=== PATIENT | female | born 1960 | race Caucasian/White ===

== ENCOUNTER 2021-03-17 10:04 | Outpatient (REF) | payer OTHER, MEDICAID, SELFPAY ==
[2021-03-21 04:21] LABS: HPV 16 RNA NOT DETECTED (NOT DETECTED); HPV mRNA E6/E7 rflx Detected (Not Detected)
== END 2021-03-17 10:05 | disposition home or self-care (01) ==
LOC: HO.LAB 10:04
PROVIDERS: PCP Hospitalist; Visit Provider Advanced Practice Midwife
DX: Z01.419 Encounter for gynecological examination (general) (routine) without abnormal findings (principal); Z11.51 Encounter for screening for human papillomavirus (HPV)
CPT/HCPCS: 87624; 87625; 88142

== ENCOUNTER 2021-03-25 12:52 | Outpatient (REF) | payer OTHER, MEDICAID, SELFPAY ==
--- NOTE | ~2021-03-25 | MM_ITS ---
EXAMINATION: MM SCREENING DIGITAL BREAST TOMOSYNTHESIS, BILATERAL CLINICAL INFORMATION: Screening. Asymptomatic. Age 61. Prior outside mammography unknown. Tyrer-Cuzick score not calculated (incomplete historical information). COMPARISON: None. TECHNIQUE: Digital breast tomosynthesis is performed in both the craniocaudal and mediolateral oblique views along with computer-aided detection (CAD). Synthesized 2D images are generated from the tomosynthesis. Additional exaggerated left CC view is provided. FINDINGS: The breasts are heterogeneously dense, which may obscure small masses (ACR BI-RADS breast composition Category c). There is inhomogeneous fibronodular parenchymal pattern without significant mass or architectural abnormality or abnormal calcifications. Axilla and skin contours are unremarkable. MM/MM tomosynthesis screening BI IMPRESSION: No mammographic evidence of malignancy. ASSESSMENT: BI-RADS 2: Benign RECOMMENDATION: Routine annual mammography screening. This patient's information was entered into a reminder system with a target due date for their next mammogram.
== END 2021-03-25 12:53 | disposition home or self-care (01) ==
LOC: HO.MAMMO 12:52
PROVIDERS: PCP Hospitalist; Visit Provider Hospitalist
DX: Z12.31 Encounter for screening mammogram for malignant neoplasm of breast (principal)
CPT/HCPCS: 77063; 77067

== ENCOUNTER → 2021-06-18 13:54 | Outpatient (BNVA) | payer MEDICARE, MEDICAID, SELFPAY | PROVIDERS: PCP Hospitalist; Visit Provider Surgery ==

== ENCOUNTER → 2021-07-01 15:02 | Outpatient (BNVA) | payer MEDICARE, MEDICAID, SELFPAY | PROVIDERS: PCP Hospitalist; Referring Provider Hospitalist; Visit Provider Surgery | DX: K80.20 Calculus of gallbladder without cholecystitis without obstruction (principal) | CPT/HCPCS: 99202 ==

== ENCOUNTER 2021-08-06 12:43 | Outpatient (REF) | payer MEDICARE, MEDICAID, SELFPAY ==
--- NOTE | 2021-08-06 12:56 | EEG_ITS ---
Waking background activity consists of a moderate voltage 9 to 10 hertz posterior alpha frequency, intermixed with low voltage fast frequencies anteriorly. Occasional sharp contoured waves are seen from the central regions, particularly on the right. Drowsiness is characterized by diffuse theta slowing. During sleep, central vertex waves and K complexes and sleep spindles are noted. Deeper stages of sleep are not identified. Arousals are unremarkable. No focal, lateralizing, or paroxysmal discharges are seen. The patient remains asymptomatic except for some episodes of shortness of breath. IMPRESSION: This 24-hour ambulatory EEG is considered within normal limits. MD SALVADOR Rosenbaum/MIGUEL ÁNGEL / [phone]
== END 2021-08-06 12:44 | disposition home or self-care (01) ==
LOC: HO.NEURO 12:43
PROVIDERS: PCP Hospitalist; Visit Provider Hospitalist
DX: Z13.89 Encounter for screening for other disorder (principal)
CPT/HCPCS: 95708

== ENCOUNTER 2021-12-02 16:55 | Emergency (ER) | payer MEDICARE, MEDICAID, SELFPAY ==
--- NOTE | ~2021-12-02 | XR_ITS ---
EXAMINATION: CHEST AND RIGHT KNEE CLINICAL INFORMATION: Mental status changes with fall COMPARISON: None TECHNIQUE: Single view chest, 2 views right knee FINDINGS: There is mild elevation of the right hemidiaphragm. Heart size normal. No infiltrates, effusions or lung masses seen. No acute osseous injury involving the bony thorax. The knee is unremarkable aside from the presence of a probable healed fracture involving the proximal fibular diaphysis XR/XR chest 1V IMPRESSION: No acute intrathoracic disease. No acute osseous injury involving the right knee.
--- NOTE | ~2021-12-02 | XR_ITS ---
EXAMINATION: CHEST AND RIGHT KNEE CLINICAL INFORMATION: Mental status changes with fall COMPARISON: None TECHNIQUE: Single view chest, 2 views right knee FINDINGS: There is mild elevation of the right hemidiaphragm. Heart size normal. No infiltrates, effusions or lung masses seen. No acute osseous injury involving the bony thorax. The knee is unremarkable aside from the presence of a probable healed fracture involving the proximal fibular diaphysis XR/XR knee RT 2V IMPRESSION: No acute intrathoracic disease. No acute osseous injury involving the right knee.
--- NOTE | ~2021-12-02 | CT_ITS ---
EXAMINATION: CT BRAIN AND CT CERVICAL SPINE WITHOUT CONTRAST. CLINICAL INFORMATION: Multiple falls and mental status change. COMPARISON: None TECHNIQUE: 5 mm thin axial and reformatted 2 mm thin sagittal and coronal images of brain were obtained. Subsequently axial 3 mm thin and reformatted 2 mm thin sagittal and coronal images of cervical spine were obtained. DLP 1049. FINDINGS: Brain: There is no acute intra-axial, extra-axial bleed, masses or midline shift. There is a left posterior temporal lobe encephalomalacia from old insult or intervention. There is no acute intracranial infarct, edema or midline shift. The lateral ventricles are somewhat symmetrical and mildly enlarged. Mild periventricular hypodensity seen in both cerebral hemispheres. Bone windows reveals a metallic plate along the left temporal lobe likely from previous intervention. Otherwise no calvarial abnormality seen. There is no scalp soft tissue lesion seen. There is diffuse mucoperiosteal thickening bilateral maxillary and ethmoid sinuses. There is air-fluid level in the spine maxillary sinuses. CT/CT head/brain wo con IMPRESSION: No acute intracranial process seen. There is a left parietal-temporal lobe encephalomalacia likely from previous insult or intervention. There is a left parietal-temporal calvarial metallic plate from previous intervention. Age-related cerebral volume loss with chronic small vessel ischemic changes. Bilateral acute maxillary and bilateral chronic ethmoid sinusitis.
--- NOTE | ~2021-12-02 | CT_ITS ---
EXAMINATION: CT BRAIN AND CT CERVICAL SPINE WITHOUT CONTRAST. CLINICAL INFORMATION: Multiple falls and mental status change. COMPARISON: None TECHNIQUE: 5 mm thin axial and reformatted 2 mm thin sagittal and coronal images of brain were obtained. Subsequently axial 3 mm thin and reformatted 2 mm thin sagittal and coronal images of cervical spine were obtained. DLP 1049. FINDINGS: Brain: There is no acute intra-axial, extra-axial bleed, masses or midline shift. There is a left posterior temporal lobe encephalomalacia from old insult or intervention. There is no acute intracranial infarct, edema or midline shift. The lateral ventricles are somewhat symmetrical and mildly enlarged. Mild periventricular hypodensity seen in both cerebral hemispheres. Bone windows reveals a metallic plate along the left temporal lobe likely from previous intervention. Otherwise no calvarial abnormality seen. There is no scalp soft tissue lesion seen. There is diffuse mucoperiosteal thickening bilateral maxillary and ethmoid sinuses. There is air-fluid level in the spine maxillary sinuses. CT/CT cervical spine wo con IMPRESSION: No acute intracranial process seen. There is a left parietal-temporal lobe encephalomalacia likely from previous insult or intervention. There is a left parietal-temporal calvarial metallic plate from previous intervention. Age-related cerebral volume loss with chronic small vessel ischemic changes. Bilateral acute maxillary and bilateral chronic ethmoid sinusitis.
[2021-12-02 17:04] VITALS: BP 112/49; BP 142/90; PULSE 72; PULSE 73; RESP 16; TEMP 36.6; O2SAT 96; BMI 28.7
--- NOTE | 2021-12-02 17:31 | ECG_ITS ---
Test Reason : FALL Blood Pressure : / mmHG Vent. Rate : 070 BPM Atrial Rate : 070 BPM P-R Int : 174 ms QRS Dur : 078 ms QT Int : 406 ms P-R-T Axes : 055 006 024 degrees QTc Int : 438 ms Normal sinus rhythm Normal ECG No previous ECGs available Referred By: Asha Matamoros Electronically Signed By:Camron Lowry
--- NOTE | 2021-12-02 17:32 | ED_ITS ---
HPI - General Adult General Chief complaint: General Medical Stated complaint: MECH FALL W/HEAD STRIKE,BRUISE,-LOC PER EMS Time Seen by Provider: 12/02/21 17:20 Source: patient, EMS, RN notes reviewed and old records reviewed Mode of arrival: EMS Limitations: no limitations History of Present Illness HPI narrative: 61 years old female [facility] after falling down of the bed, with closed head injury to the forehead, patient is complaining of headache, patient with history of TBI. Patient is only complaining of headache and neck pain, right knee pain. Related Data Home Medications Medication Instructions Recorded Confirmed acetaminophen 325 mg tablet 650 mg PO Q6H PRN 03/17/21 07/01/21 aripiprazole 20 mg tablet 20 mg PO DAILY 03/17/21 07/01/21 bisacodyl 10 mg rectal suppository 10 mg TX DAILY PRN 03/17/21 07/01/21 calcium carbonate 200 mg calcium 200 mg PO BID 03/17/21 07/01/21 (500 mg) chewable tablet (Tums) cetirizine 1 mg/mL oral solution 10 mg PO DAILY PRN 03/17/21 07/01/21 (All Day Allergy (cetirizine)) citalopram 10 mg tablet 10 mg PO DAILY 03/17/21 07/01/21 famotidine 40 mg tablet 40 mg PO DAILY 03/17/21 07/01/21 gemfibrozil 600 mg tablet 600 mg PO DAILY 03/17/21 07/01/21 ibuprofen 600 mg tablet 600 mg PO Q8H PRN 03/17/21 07/01/21 lamotrigine 100 mg tablet 100 mg PO BID 03/17/21 07/01/21 loperamide 2 mg capsule 2 mg PO Q6H PRN 03/17/21 07/01/21 mineral oil (Fleet Mineral Oil) 118 ml TX DAILY PRN 03/17/21 07/01/21 omeprazole 20 mg capsule,delayed 20 mg PO DAILY 03/17/21 07/01/21 release sennosides 8.6 mg tablet (Natural 8.6 mg PO BEDTIME 03/17/21 07/01/21 Senna Laxative) sodium chloride 0.65 % nasal spray 1 spray INTRANASAL BID PRN 03/17/21 07/01/21 aerosol (Searcy Nasal) Allergies Allergy/AdvReac Type Severity Reaction Status Date / Time No Known Allergies Allergy Verified 07/01/21 15:13 Review of Systems Review of Systems: All other systems are reviewed and are negative Constitutional: Reports as per HPI and Reports no additional constitutional complaints Eyes: Reports as per HPI and Reports no additional eye complaints Reports system reviewed and no additional complaints, except as documented Cardiovascular: Reports as per HPI and Reports no additional cardiovascular complaints Respiratory: Reports as per HPI and Reports no additional respiratory complaints Gastrointestinal: Reports as per HPI and Reports no additional gastrointestinal complaints Genitourinary: Reports no additional female genitourinary complaints Musculoskeletal: Reports no additional musculoskeletal complaints Skin/Breast: Reports system reviewed and no additional complaints, except as docu Psychiatric: Reports no additional psychiatric complaints Endocrine: Reports no additional endocrine complaints Hematologic/Lymphatic: Reports no additional hematologic/lymphatic complaints Allergic/Immunologic: Reports no additional allergic/immunologic complaints Reports system reviewed and no additional complaints, except as documented and Reports Abnormal speech present [facility] Past Medical History Medical History Aphasia Chondrocostal junction syndrome Delusional disorder Dementia Disruptive mood dysregulation disorder Gallstones GERD (gastroesophageal reflux disease) Hx of migraine headaches Hyperlipidemia Myopia Obsessive compulsive disorder Raynauds syndrome Traumatic brain injury Family History Family History Maternal Grandmother Breast cancer Social History Social History Advance Directives: No Advance Directives Information Provided: No Physical Exam ED Vital Signs: Vital Signs - 24 hr 12/02/21 17:04 12/02/21 19:06 Temperature 97.8 F 97.9 F Pulse Rate 73 79 Respiratory Rate 16 16 Blood Pressure 112/49 L 122/58 L Pulse Oximetry 96 97 BMI result Body Mass Index 28.7 Vital signs have been reviewed as appeared to be correct. Blood pressure normal. Heart rate normal. Respiration rate normal. Temperature normal. Oxygen saturation normal. Appearance: Alert. Oriented X3. No acute distress. Head: Normal external exam. Normocephalic. Atraumatic. No Fontenot signs noted. No raccoon eyes noted Eyes: PERRLA. EOMI. Conjunctiva and sclera normal. Eyelids normal. ENT: TM's Normal. Pharynx normal. Uvula midline. Moist mucous membranes. No trismus noted. No drooling noted. No muffled voice noted. Neck: Normal inspection. Neck supple. FROM. No adenopathy. Thyroid Normal. No meningeal signs. No neck mass noted. CVS: Normal heart rate and rhythm. Heart sound normal. No murmurs noted. Pulses normal throughout. Respiratory: No respiratory distress. Painless inspiration. Breath sounds normal. No wheezes/rales/rhonchi noted. Chest nontender. No accessory muscle usage noted or decreased air movement noted. Abdomen: Soft and nontender. Bowel sounds normal in all 4 quadrants. No distention noted. No organomegaly noted. No visible injury noted. Back: No CVA tenderness. Full range of motion noted. Skin: Skin warm and dry. Normal skin color. Normal skin turgor. No rashes/lesions/lacerations noted. Extremities: Right knee ecchymosis, with mild tenderness, no deformity. Neuro: Oriented X 3. Cranial nerve exam: II-XII are grossly intact No motor deficit. No sensory deficit. Reflexes normal. Course Course Course Narrative: Assessment and plan. A 61-year-old female with history of TBI live in a penitentiary was sent for evaluation of mechanical fall and change mental status, patient had a negative workup in the emergency department, patient has been reacting appropriately in the emergency department. The workup is not revealing any acute traumatic changes or abnormalities. Mild lipase elevation patient has no nausea or vomiting or abdominal pain. Medical Decision Making Medical Records Medical records reviewed: Yes I reviewed the patient's medical records. Lab Data Lab results reviewed: Yes I reviewed the patient's lab results. Result diagrams: 12/02/21 17:54 12/02/21 17:54 Labs: Lab Results 12/02/21 12/02/21 12/02/21 Range/Units 17:54 17:54 17:54 WBC 6.2 (4.8-10.8) X10*3/uL RBC 4.12 L (4.20-5.50) X10*6/uL Hgb 12.1 (12.0-16.0) g/dl Hct 36.8 L (37.0-47.0) % MCV 89.3 (80.0-98.0) fL MCH 29.4 (27.0-33.0) pg MCHC 32.9 (31.0-35.0) g/dl RDW 13.2 (11.0-16.0) % Plt Count 340 (160-400) X10*3/uL MPV 9.3 L (9.4-12.3) fL Immature Gran % (Auto) 0.5 H (0.0-0.4) % Neut % (Auto) 69.6 (45-73) % Lymph % (Auto) 17.7 L (20-40) % [place] % (Auto) 6.1 (2-11) % Eos % (Auto) 5.9 H (0-4) % Baso % (Auto) 0.2 (0-2) % Lymph # (Auto) 1.1 L (1.2-4.9) X10*3/uL [place] # (Auto) 0.4 (0.1-1.2) X10*3/uL Eos # (Auto) 0.4 (0.0-0.4) X10*3/uL Baso # (Auto) 0.0 (0.0-0.2) X10*3/uL Abs Immat Gran (auto) 0.03 (0.00-0.03) X10*3/uL Absolute Neuts (auto) 4.3 (2.0-8.3) x10*3/uL Absolute Nucleated RBC 0.000 (0.0-0.012) X10*3/uL Nucleated RBC % (auto) 0.0 (0.0-0.2) /100WBC Sodium 144 (135-145) mmol/L Potassium 3.7 (3.3-5.1) mmol/L Chloride 108 (96-108) mmol/L Carbon Dioxide 29 (22-29) mmol/L Anion Gap 11 L (12-20) BUN 14 (9-16) mg/dL Creatinine 0.90 (0.5-1.4) mg/dL Estim Creat Clear Calc 66.3 Estimated GFR > 60 Random Glucose 119 H (60-115) mg/dL Calcium 9.3 (8.4-10.2) mg/dL Total Bilirubin 0.6 (0.0-1.0) mg/dL Direct Bilirubin 0.3 (0.0-0.5) mg/dL AST 24 (5-31) U/L ALT 22 (0-31) U/L Alkaline Phosphatase 113 (39-117) U/L Troponin I High Sens 4.0 (<3.5-17.0) ng/L Total Protein 6.6 (6.5-8.0) g/dL Albumin 4.1 (3.5-5.0) g/dL Lipase 264 H (8-78) U/L Urine Color Urine Appearance Urine pH (5.0-8.0) Ur Specific [place] (1.005-1.025) Urine Protein (NEG-TRACE) MG/DL Urine Glucose (UA) (NEG) MG/DL Urine Ketones (NEG) MG/DL Urine Blood (NEG) Urine Nitrite (NEG) Ur Leukocyte Esterase (NEG) Urine RBC (0) /HPF Urine WBC (0-4) /HPF Ur Squamous Epith Cells /LPF Urine Bacteria /LPF 12/02/21 Range/Units 20:06 WBC (4.8-10.8) X10*3/uL RBC (4.20-5.50) X10*6/uL Hgb (12.0-16.0) g/dl Hct (37.0-47.0) % MCV (80.0-98.0) fL MCH (27.0-33.0) pg MCHC (31.0-35.0) g/dl RDW (11.0-16.0) % Plt Count (160-400) X10*3/uL MPV (9.4-12.3) fL Immature Gran % (Auto) (0.0-0.4) % Neut % (Auto) (45-73) % Lymph % (Auto) (20-40) % [place] % (Auto) (2-11) % Eos % (Auto) (0-4) % Baso % (Auto) (0-2) % Lymph # (Auto) (1.2-4.9) X10*3/uL [place] # (Auto) (0.1-1.2) X10*3/uL Eos # (Auto) (0.0-0.4) X10*3/uL Baso # (Auto) (0.0-0.2) X10*3/uL Abs Immat Gran (auto) (0.00-0.03) X10*3/uL Absolute Neuts (auto) (2.0-8.3) x10*3/uL Absolute Nucleated RBC (0.0-0.012) X10*3/uL Nucleated RBC % (auto) (0.0-0.2) /100WBC Sodium (135-145) mmol/L Potassium (3.3-5.1) mmol/L Chloride (96-108) mmol/L Carbon Dioxide (22-29) mmol/L Anion Gap (12-20) BUN (9-16) mg/dL Creatinine (0.5-1.4) mg/dL Estim Creat Clear Calc Estimated GFR Random Glucose (60-115) mg/dL Calcium (8.4-10.2) mg/dL Total Bilirubin (0.0-1.0) mg/dL Direct Bilirubin (0.0-0.5) mg/dL AST (5-31) U/L ALT (0-31) U/L Alkaline Phosphatase (39-117) U/L Troponin I High Sens (<3.5-17.0) ng/L Total Protein (6.5-8.0) g/dL Albumin (3.5-5.0) g/dL Lipase (8-78) U/L Urine Color YELLOW Urine Appearance CLEAR Urine pH 6.0 (5.0-8.0) Ur Specific [place] 1.020 (1.005-1.025) Urine Protein NEG (NEG-TRACE) MG/DL Urine Glucose (UA) NEG (NEG) MG/DL Urine Ketones NEG (NEG) MG/DL Urine Blood NEG (NEG) Urine Nitrite NEG (NEG) Ur Leukocyte Esterase TRACE H (NEG) Urine RBC 0-2 (0) /HPF Urine WBC 0-2 (0-4) /HPF Ur Squamous Epith Cells TRACE /LPF Urine Bacteria NONE /LPF Imaging Data CT scan - head: Attestation: I personally reviewed and interpreted this imaging study as follows: Radiologist's impression: No acute intracranial pathology. Cervical spine CT: Attestation: I personally reviewed and interpreted this imaging study as follows: Radiologist's impression: No acute fracture, dislocation or subluxation seen in cervical spine. Right knee x-ray: Attestation: I personally reviewed and interpreted this imaging study as follows: Radiologist's impression: No acute intrathoracic disease. No acute osseous injury involving the right knee.? Chest x-ray: Attestation: I personally reviewed and interpreted this imaging study as follows: Radiologist's impression: No acute intrathoracic disease. No acute osseous injury involving the right knee.? ECG Data Attestation: I personally reviewed and interpreted this ECG as follows: Interpretation: Normal sinus rhythm at 70 beats per minutes, normal intervals, normal axis deviation. Discharge Plan Discharge Clinical Impression: Traumatic brain injury, Closed head injury, Pancreatitis Patient Disposition: Home, Self-Care Instructions: Head Injury (ED), Pancreatitis (ED) Prescriptions: No Action acetaminophen 325 mg tablet 650 mg PO Q6H PRN0RF aripiprazole 20 mg tablet 20 mg PO DAILY 0RF bisacodyl 10 mg suppository 10 mg TX DAILY PRN0RF cetirizine [All Day Allergy (cetirizine)] 1 mg/mL solution 10 mg PO DAILY PRN0RF citalopram 10 mg tablet 10 mg PO DAILY 0RF famotidine 40 mg tablet 40 mg PO DAILY 0RF mineral oil [Fleet Mineral Oil] Enema 118 ml TX DAILY PRN0RF Rx Instructions: discard any unused portion gemfibrozil 600 mg tablet 600 mg PO DAILY 0RF ibuprofen 600 mg tablet 600 mg PO Q8H PRN0RF lamotrigine 100 mg tablet 100 mg PO BID 0RF loperamide 2 mg capsule 2 mg PO Q6H PRN0RF sodium chloride [Searcy Nasal] 0.65 % aerosol,spray 1 spray intranasal BID PRN0RF omeprazole 20 mg capsule,delayed release(DR/EC) 20 mg PO DAILY 0RF sennosides [Natural Senna Laxative] 8.6 mg tablet 8.6 mg PO BEDTIME 0RF calcium carbonate [Tums] 200 mg calcium (500 mg) tablet,chewable 200 mg PO BID 0RF Referrals: Physician,Unknown J [Primary Care Provider] - 2 days
[2021-12-02 18:00] LABS: MANUAL DIFF FLAG NO
[2021-12-02 18:07] LABS: Basophils Percent Auto 0.2 % (0-2); Eosinophils Absolute Auto 0.4 X10*3/uL (0.0-0.4); Eosinophils Percent Auto 5.9 % (0-4); Hematocrit 36.8 % (37.0-47.0); Hemoglobin 12.1 g/dl (12.0-16.0); Imm Gran Abs Auto 0.03 X10*3/uL (0.00-0.03); Imm Gran Pct Auto 0.5 % (0.0-0.4); Lymphocytes Absolute Auto 1.1 X10*3/uL (1.2-4.9); Lymphocytes Percent Auto 17.7 % (20-40); Mean Corpuscular HGB Conc 32.9 g/dl (31.0-35.0); Mean Corpuscular Hemoglobin 29.4 pg (27.0-33.0); Mean Corpuscular Volume 89.3 fL (80.0-98.0); Mean Platelet Volume 9.3 fL (9.4-12.3); Monocytes Absolute Auto 0.4 X10*3/uL (0.1-1.2); Monocytes Percent Auto 6.1 % (2-11); Neutrophils Absolute Auto 4.3 x10*3/uL (2.0-8.3); Neutrophils Percent Auto 69.6 % (45-73); Platelet Count 340 X10*3/uL (160-400); Red Blood Count 4.12 X10*6/uL (4.20-5.50); Red Cell Distribution Width 13.2 % (11.0-16.0); White Blood Count 6.2 X10*3/uL (4.8-10.8)
[2021-12-02 18:17] LABS: Alanine Aminotransferase 22 U/L (0-31); Albumin Level 4.1 g/dL (3.5-5.0); Alkaline Phosphatase 113 U/L (39-117); Anion Gap 11 (12-20); Aspartate Amino Transferase 24 U/L (5-31); Bilirubin Direct 0.3 mg/dL (0.0-0.5); Bilirubin Total 0.6 mg/dL (0.0-1.0); Blood Urea Nitrogen 14 mg/dL (9-16); Calcium 9.3 mg/dL (8.4-10.2); Carbon Dioxide 29 mmol/L (22-29); Chloride 108 mmol/L (96-108); Creatinine Clr Calc Pharmacy 66.3; Estimated Glomerular Filt Rate > 60; Glucose Random 119 mg/dL (60-115); Lipase 264 U/L (8-78); Potassium 3.7 mmol/L (3.3-5.1); Sodium 144 mmol/L (135-145); Total Protein 6.6 g/dL (6.5-8.0)
[2021-12-02 19:06] VITALS: BP 122/58; PULSE 79; RESP 16; TEMP 36.6; O2SAT 97
[2021-12-02 20:15] LABS: Appearance Urine CLEAR; Color Urine YELLOW; Glucose Urine UA NEG (NEG); Leukocyte Esterase Urine TRACE (NEG); Nitrite Urine NEG (NEG); UACC Culture Trigger YES; Urine Blood NEG (NEG); Urine Ketones NEG (NEG); Urine Protein NEG (NEG-TRACE)
[2021-12-02 20:29] LABS: RBC Urine 0-2 /HPF (0); Squamous Epithelial Cell Urine TRACE /LPF; WBC Urine 0-2 /HPF (0-4)
[2021-12-02 21:40] VITALS: BP 114/61; PULSE 78; RESP 14; TEMP 36.7; O2SAT 99
== END 2021-12-02 22:13 | disposition home or self-care (01) ==
PROVIDERS: Emergency Provider Emergency Medicine
DX: S09.90XA Unspecified injury of head, initial encounter (principal); S80.01XA Contusion of right knee, initial encounter; W06.XXXA Fall from bed, initial encounter; K85.90 Acute pancreatitis without necrosis or infection, unspecified; Z87.820 Personal history of traumatic brain injury; Y93.84 Activity, sleeping; Y92.042 Bedroom in boarding-house as the place of occurrence of the external cause; Y99.9 Unspecified external cause status
CPT/HCPCS: 36415; 70450; 71045; 72125; 73560; 80048; 80076; 81001; 83690; 84484; 85025; 87086; 93005; 99284

== ENCOUNTER 2021-12-22 09:56 | Inpatient (IN) | payer MEDICARE, SELFPAY ==
[2021-12-22] VITALS (8 sets, daily range): BP systolic 96–111; BP diastolic 40–60; PULSE 75–86; RESP 16–22; TEMP 36.4–37.7; O2SAT 93–98; BMI 30.4
--- NOTE | ~2021-12-22 | XR_ITS ---
EXAMINATION: XR CHEST CLINICAL INFORMATION: Weakness. Rule out pneumonia. COMPARISON: Previous chest x-ray most recent 12/02/2021 TECHNIQUE: Frontal view of the chest was obtained. FINDINGS: The cardiac and mediastinal contours are stable. The lung volumes are low. There is elevation of the left hemidiaphragm. There is question of infiltrate at the left lung base new from previous exam. The right lung is clear. There is no pleural effusion. There are degenerative changes of the spine. XR/XR chest 1V IMPRESSION: Question left base infiltrate.
--- NOTE | ~2021-12-22 | CT_ITS ---
EXAMINATION: CT CERVICAL SPINE WITHOUT CONTRAST CLINICAL INFORMATION: Fall. Neck pain. Rule out fracture. COMPARISON: Previous cervical spine CT 12/02/2021 TECHNIQUE: Axial images through the cervical spine without contrast. Sagittal and coronal reconstructions on the technologist workstation were performed. This CT examination was performed using dose optimization techniques as appropriate, variously including the following: *Automated exposure control *Adjustment of mA and/or kV according to patient size (this includes techniques or standardized protocols for targeted exams where dose is matched to indication/reason for exam; i.e. extremities or head) *Use of iterative reconstruction technique DLP: 6 x 5 mGy-cm FINDINGS: There is slight head tilt to the right and curvature of the cervical spine to the left. Bone alignment is otherwise normal. No fracture or dislocation is seen. There is degenerative spondylosis at C5-C6 C6-C7 and C7-T1. There is degenerative disc disease at C6-C7. There are degenerative changes at the C1 dens articulation. There is bilateral multilevel facet arthritis, right greater than left. Prevertebral soft tissues are normal. Visualized lung apices are clear. CT/CT cervical spine wo con IMPRESSION: Degenerative changes. No fracture or dislocation seen. Fleischner guidelines were followed.
--- NOTE | ~2021-12-22 | NM_ITS ---
EXAMINATION: HEPATOBILIARY SCAN. CLINICAL INFORMATION: Abnormal LFTs. COMPARISON: None TECHNIQUE: Following intravenous administration of 5 mCi of 99m Tc Hepatolite, imaging over the right upper quadrant was obtained up to 2 hours. Following oral administration of water, repeat imaging was obtained at 5 hours in multiple projections.. FINDINGS: There is normal hepatic uptake without any focal defect. There is prompt visualization of CBD by 8 minutes. Gallbladder is not visualized up to 2 hours consistent cystic duct obstruction. Gallbladder is not visualized up to 5 hours. NM/NM hepatobiliary wo pharm IMPRESSION: Finding consistent with cystic duct obstruction up to 5 hours. Patent CBD. Normal hepatic uptake.
--- NOTE | ~2021-12-22 | US_ITS ---
EXAMINATION: US ABDOMEN LIMITED CLINICAL INFORMATION: Common bile duct stone. COMPARISON: Previous CT of the abdomen and pelvis from yesterday TECHNIQUE: Real-time imaging of the right upper quadrant abdominal viscera. FINDINGS: PANCREAS: Not well visualized due to bowel gas LIVER: Liver echotexture is increased. No focal liver lesion is appreciated by ultrasound. There is no intrahepatic biliary duct dilatation seen. GALLBLADDER: The gallbladder is slightly enlarged measuring 13 x 4 x 4.5 cm in longitudinal transverse and AP dimension. There are small gallstones in the gallbladder. The gallbladder wall is slightly thickened measuring 0.6 cm. There is trace pericholecystic fluid. The system technologist does not describe the patient is tender over the gallbladder. COMMON BILE DUCT: Normal in caliber measuring 0.5 cm in diameter. No common bile duct stone is appreciated by ultrasound. RIGHT KIDNEY: Normal. No hydronephrosis. No renal calculi or focal parenchymal lesions. The kidney measures 10 cm in maximum dimension. FREE FLUID: There is no ascites. There is a small right pleural effusion. US/US abdomen limited IMPRESSION: Slightly enlarged gallbladder. Small gallstones. Slightly thickened gallbladder wall and trace pericholecystic fluid. Appearance is again concerning for cholecystitis. Normal caliber intra and extrahepatic bile ducts. No common bile duct stone seen by ultrasound. Echogenic liver. No focal liver lesion appreciated by ultrasound. Small right pleural effusion.
--- NOTE | ~2021-12-22 | US_ITS ---
EXAMINATION: US ABDOMEN LIMITED US DUPLEX ARTERIAL VENOUS COMPLETE CLINICAL INFORMATION: ?cholecystitis. Worsening liver function tests. COMPARISON: Previous CT of the abdomen and pelvis 12/22/2021, abdominal ultrasound 12/23/2021, HIDA scan 12/25/2021 and MRCP 12/26/2021. TECHNIQUE: Real-time imaging of the right upper quadrant abdominal viscera. Grayscale color and Doppler imaging of the liver vasculature. FINDINGS: PANCREAS: Not well visualized due to bowel gas. LIVER: Liver echotexture is slightly increased. The liver is normal in size. The liver contour is normal. No focal hepatic lesion. There is no intrahepatic biliary duct dilatation seen. GALLBLADDER: The gallbladder is slightly enlarged measuring 14 x 4 x 6 cm in sagittal, AP and transverse dimensions. There is dependent echogenic material in the gallbladder suggestive of sludge. No acoustic shadowing to confirm a gallstone is appreciated. Suggested gallstones in the neck of the gallbladder on prior exams are not appreciated. The gallbladder wall appears thickened measuring up to 0.8 cm. No gallbladder wall edema or pericholecystic fluid is seen. The cytotechnologist/histotechnologist does not report that the patient was tender over the gallbladder. COMMON BILE DUCT: Normal in caliber measuring 0.4 cm in diameter. RIGHT KIDNEY: Normal. No hydronephrosis. No renal calculi or focal parenchymal lesions. The kidney measures 10 cm in maximum dimension. FREE FLUID: There is a small amount of ascites adjacent to the liver. LIVER DOPPLER: The extrahepatic, main, right and left portal veins are patent with appropriate hepatopetal flow. The right, middle and left hepatic veins are patent with normal waveforms. The IVC is patent with normal waveform. The main hepatic artery is patent with normal peak systolic velocity of 150 cm/s. US/US abdomen limited IMPRESSION: Enlarged gallbladder and thickened gallbladder wall. Dependent echogenic material in the gallbladder suggestive of sludge. This does not demonstrate acoustic shadowing to confirm a stone. Suggested stone in the gallbladder neck is not appreciated. Echogenic liver, probably representing mild fatty infiltration. No biliary duct dilatation. Small amount of ascites adjacent to the liver. Normal liver Doppler exam.
--- NOTE | ~2021-12-22 | MR_ITS ---
EXAMINATION: MR ABDOMEN WITHOUT CONTRAST CLINICAL INFORMATION: Abdominal pain. Abnormal liver function tests. Cystic duct obstruction on nuclear medicine hepatobiliary scan. COMPARISON: CT abdomen and pelvis from 12/22/2021. Abdomen ultrasound from 12/23/2021 and nuclear medicine hepatobiliary study from 12/25/2021. TECHNIQUE: Noncontrast multiplanar multisequence MRI of the abdomen is performed on a high-field 1.5 Luly magnet using the MRCP protocol. FINDINGS: LUNG BASES: No pericardial or pleural effusion. Again noted are findings of an elevated right diaphragm and bibasilar atelectasis. LIVER: Liver has normal size and contour. Mild hepatic steatosis is evident on opposed phase gradient echo imaging. A 1 cm T2 hyperintense focus within hepatic segment 8 is not optimally evaluated on this noncontrast MRI. It corresponds to the contrast enhancing focus observed on 12/22/2021. It likely represents a hemangioma. No intrahepatic bile duct dilatation. GALLBLADDER AND BILIARY TREE: Gallbladder contains a mild amount of sludge. There is a persistently impacted 1 cm stone in the gallbladder neck (image 11, series 4). The gallbladder wall thickening has improved compared to 12/20/2021. There is trace pericholecystic fluid. Common bile duct is normal; it measures 0.4 cm diameter. No choledocholithiasis. PANCREAS: No acute findings within the atrophied pancreas. No pancreatic mass, edema or pancreatic ductal dilatation. SPLEEN: Normal. ADRENAL GLANDS: Normal. KIDNEYS: Kidneys are normal in size and parenchymal signal. No renal mass or hydronephrosis. BOWEL AND PERITONEUM: Again noted is the ventral abdominal wall hernia containing a portion of the distal gastric body. No dilated bowel loops. VASCULATURE: Abdominal aorta is normal in size. Inferior vena cava is unremarkable. LYMPH NODES: No pathologic sized lymph nodes in the abdomen. SKELETAL: No suspicious bone lesions. L4-L5 degenerative disc disease. MR/MR MRCP IMPRESSION: * Mild hepatic steatosis. * There is an impacted stone in the gallbladder neck. The mild gallbladder wall thickening has improved compared to 12/22/2021. Trace pericholecystic fluid is present. If the patient has right upper quadrant pain/Ann's sign, then constellation of findings would suggest acute cholecystitis. Also, the finding of an obstructed cystic duct on hepatobiliary scan from 08/27/2022 favors diagnosis of acute cholecystitis. There is no choledocholithiasis. * A small, 1 cm T2 hyperintense focus in hepatic segment 8 is likely a hemangioma. * A ventral abdominal wall hernia contains a portion of the stomach.
--- NOTE | ~2021-12-22 | CT_ITS ---
EXAMINATION: CT HEAD WITHOUT CONTRAST CLINICAL INFORMATION: Fall. Change in mental status. Rule out fracture. COMPARISON: Previous head CT December 02 2021 TECHNIQUE: Contiguous axial imaging was performed from the skull base to vertex without intravenous administration of contrast. This CT examination was performed using dose optimization techniques as appropriate, variously including the following: *Automated exposure control *Adjustment of mA and/or kV according to patient size (this includes techniques or standardized protocols for targeted exams where dose is matched to indication/reason for exam; i.e. extremities or head) *Use of iterative reconstruction technique DLP: 757 mGy-cm FINDINGS: There is no evidence of an extra-axial collection. There is no evidence of intra-axial or extra-axial hemorrhage. Ventricles and extra-axial CSF spaces are appropriate. There is an area lesion or infarct left temporal and parietal lobes appears unchanged. No mass, mass effect or acute infarct is seen. There is a surgical plate in the left temporal and parietal bone. There are degenerative changes of the temporomandibular joints. Bony structures are otherwise unremarkable. No skull fracture is seen. The visualized paranasal sinuses, mastoid air cells and middle ears are clear. CT/CT head/brain wo con IMPRESSION: No acute findings. 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
--- NOTE | ~2021-12-22 | CT_ITS ---
EXAMINATION: CT ABDOMEN AND PELVIS WITH CONTRAST CLINICAL INFORMATION: Diffuse abdominal pain. Elevated liver function tests. COMPARISON: None TECHNIQUE: Multidetector volumetric images were obtained from the superior aspect of the liver through the pubic symphysis following administration 85 mL of Omnipaque 350 intravenous contrast. Sagittal and coronal reformatted images were obtained on the technologist's workstation. Oral contrast: Yes This CT examination was performed using dose optimization techniques as appropriate, variously including the following: *Automated exposure control *Adjustment of mA and/or kV according to patient size (this includes techniques or standardized protocols for targeted exams where dose is matched to indication/reason for exam; i.e. extremities or head) *Use of iterative reconstruction technique DLP: 677 mGy-cm FINDINGS: LUNG BASES: There is atelectasis or small infiltrates at the lung bases. LIVER, GALLBLADDER, AND BILIARY TREE: The liver is low in attenuation suggestive of fatty infiltration. There is a 1 cm enhancing lesion high in the dome liver axial image 14 series 3. This may represent a hemangioma.. Evaluation of the gallbladder is limited due to motion artifact. The gallbladder appears upper normal in size. There is a gallstone in the neck of the gallbladder. There is question of gallbladder wall thickening and edema. There is also question of a small amount of fluid around the gallbladder. PANCREAS: Unremarkable. SPLEEN: Unremarkable. ADRENAL GLANDS: Unremarkable. KIDNEYS AND URETERS: The kidneys are normal in size, shape, and attenuation. No hydronephrosis, hydroureter, or calculi seen. No perinephric stranding. BLADDER: There is a tiny amount of air in the bladder, question related to recent catheterization. Clinical correlation recommended. Bladder is otherwise normal. GASTROINTESTINAL TRACT: The small and large bowel are unremarkable. The appendix is unremarkable. There is a upper ventral hernia slightly to the left of midline containing the distal stomach. ABDOMINAL WALL: No significant hernia is appreciated. LYMPH NODES: Normal. VASCULAR: Unremarkable. PELVIC VISCERA: Unremarkable. OSSEOUS STRUCTURES: There are degenerative changes of the spine. CT/CT abdomen pelvis w con IMPRESSION: Limited exam due to motion artifact. Gallstone in the neck of the gallbladder. Question gallbladder wall thickening and edema and small amount of pericholecystic fluid. Appearance is concerning for acute cholecystitis. Upper ventral hernia containing distal stomach. No evidence of obstruction. 1 cm enhancing lesion in the liver question representing a benign hemangioma. Fleischner guidelines were followed.
--- NOTE | ~2021-12-22 | US_ITS ---
EXAMINATION: US ABDOMEN LIMITED US DUPLEX ARTERIAL VENOUS COMPLETE CLINICAL INFORMATION: ?cholecystitis. Worsening liver function tests. COMPARISON: Previous CT of the abdomen and pelvis 12/22/2021, abdominal ultrasound 12/23/2021, HIDA scan 12/25/2021 and MRCP 12/26/2021. TECHNIQUE: Real-time imaging of the right upper quadrant abdominal viscera. Grayscale color and Doppler imaging of the liver vasculature. FINDINGS: PANCREAS: Not well visualized due to bowel gas. LIVER: Liver echotexture is slightly increased. The liver is normal in size. The liver contour is normal. No focal hepatic lesion. There is no intrahepatic biliary duct dilatation seen. GALLBLADDER: The gallbladder is slightly enlarged measuring 14 x 4 x 6 cm in sagittal, AP and transverse dimensions. There is dependent echogenic material in the gallbladder suggestive of sludge. No acoustic shadowing to confirm a gallstone is appreciated. Suggested gallstones in the neck of the gallbladder on prior exams are not appreciated. The gallbladder wall appears thickened measuring up to 0.8 cm. No gallbladder wall edema or pericholecystic fluid is seen. The cardiovascular radiologic technologist does not report that the patient was tender over the gallbladder. COMMON BILE DUCT: Normal in caliber measuring 0.4 cm in diameter. RIGHT KIDNEY: Normal. No hydronephrosis. No renal calculi or focal parenchymal lesions. The kidney measures 10 cm in maximum dimension. FREE FLUID: There is a small amount of ascites adjacent to the liver. LIVER DOPPLER: The extrahepatic, main, right and left portal veins are patent with appropriate hepatopetal flow. The right, middle and left hepatic veins are patent with normal waveforms. The IVC is patent with normal waveform. The main hepatic artery is patent with normal peak systolic velocity of 150 cm/s. US/US duplex arterial venous comp IMPRESSION: Enlarged gallbladder and thickened gallbladder wall. Dependent echogenic material in the gallbladder suggestive of sludge. This does not demonstrate acoustic shadowing to confirm a stone. Suggested stone in the gallbladder neck is not appreciated. Echogenic liver, probably representing mild fatty infiltration. No biliary duct dilatation. Small amount of ascites adjacent to the liver. Normal liver Doppler exam.
--- NOTE | 2021-12-22 10:17 | ECG_ITS ---
Test Reason : AMS Blood Pressure : / mmHG Vent. Rate : 082 BPM Atrial Rate : 082 BPM P-R Int : 164 ms QRS Dur : 080 ms QT Int : 400 ms P-R-T Axes : 040 030 027 degrees QTc Int : 467 ms Normal sinus rhythm Normal ECG When compared with ECG of 02-DEC-2021 17:45, No significant change was found Referred By: Durga Lopez Electronically Signed By:Camron Lowry
--- NOTE | 2021-12-22 10:25 | ED.GENADULT ---
HPI - General Adult General Chief complaint: General Medical Stated complaint: FALL X 1 WEEK AGO Time Seen by Provider: 12/22/21 10:06 Source: patient and EMS Mode of arrival: EMS Limitations: no limitations History of Present Illness HPI narrative: 61-year-old female who was sent to the emergency department from her care facility for evaluation of altered mental status. The nursing facility reports that the patient fell approximately 1 week prior with possible head injury. Today, the patient appeared to be unsteady and altered with slurred speech. In reviewing her past medical history and does state that she has aphasia. At the time of evaluation the patient does have dysarthric speech which is minimally comprehensible, she was able to tell me her name but I had difficulty getting other information from her. She did follow all commands. The patient denied being ill in any way. She was oriented to person and knows that she is in a hospital. Related Data Home Medications Medication Instructions Recorded Confirmed acetaminophen 325 mg tablet 650 mg PO Q6H PRN 03/17/21 12/22/21 famotidine 40 mg tablet 40 mg PO DAILY 03/17/21 12/22/21 gemfibrozil 600 mg tablet 600 mg PO BID 03/17/21 12/22/21 ibuprofen 600 mg tablet 600 mg PO Q8H PRN 03/17/21 12/22/21 loperamide 2 mg capsule 2 mg PO Q6H PRN 03/17/21 12/22/21 omeprazole 20 mg capsule,delayed 20 mg PO DAILY 03/17/21 12/22/21 release sennosides 8.6 mg tablet (Natural 8.6 mg PO Q24H PRN 03/17/21 12/22/21 Senna Laxative) sodium chloride 0.65 % nasal spray 1 spray INTRANASAL Q8H PRN 03/17/21 12/22/21 aerosol ([employer] Nasal) aripiprazole 5 mg tablet (Abilify) 2.5 mg PO DAILY 12/22/21 12/22/21 calcium carbonate 500 mg calcium 500 mg PO Q8H PRN 12/22/21 12/22/21 (1,250 mg) chewable tablet cetirizine 10 mg tablet 10 mg PO DAILY 12/22/21 12/22/21 citalopram 20 mg tablet 20 mg PO DAILY 12/22/21 12/22/21 clozapine 100 mg tablet (Clozaril) 100 mg PO BEDTIME 12/22/21 12/22/21 lamotrigine 150 mg tablet 150 mg PO BID 12/22/21 12/22/21 oxycodone-acetaminophen 5 mg-325 1 tab PO Q4H PRN 12/22/21 12/22/21 mg tablet Allergies Allergy/AdvReac Type Severity Reaction Status Date / Time No Known Allergies Allergy Verified 07/01/21 15:13 Review of Systems Review of Systems: Yes all other systems are reviewed and are negative [facility] Past Medical History Medical History Aphasia Chondrocostal junction syndrome Delusional disorder Dementia Disruptive mood dysregulation disorder Gallstones GERD (gastroesophageal reflux disease) Hx of migraine headaches Hyperlipidemia Myopia Obsessive compulsive disorder Raynauds syndrome Traumatic brain injury Family History Family History Maternal Grandmother Breast cancer Social History Social History Smoked in Last 30 Days: No Use of substances other than those prescribed or required for medical reasons: No Advance Directives: Yes Advance Directives on File: Yes Advance Directives Date on File: 12/03/21 Physical Exam ED Vital Signs: Vital Signs - 24 hr 12/22/21 10:05 12/22/21 10:12 12/22/21 11:29 Temperature 99.8 F Pulse Rate 86 84 Respiratory Rate 16 16 Blood Pressure 96/49 L 98/47 L Pulse Oximetry 93 12/22/21 12:32 12/22/21 13:46 Temperature 97.5 F Pulse Rate 79 75 Respiratory Rate 21 H 17 Blood Pressure 106/52 L 99/54 L Pulse Oximetry 96 98 BMI result Body Mass Index 30.4 Const Other: Awake, alert, female, dysarthric speech which is difficult to understand. She was oriented to person and she knows that she is in a hospital. She follows all commands appropriately, she does not appear to be in distress HENMT Head: Yes normal to inspection, Yes normocephalic and Yes atraumatic Ears: external ears normal General nose exam: Normal external nose present Face and sinus: Yes normal facial exam Mouth: Normal oral and palatal mucosa present Throat: Yes posterior oropharynx normal Eyes General: appearance normal, both eyes and all related structures Pupils: Equal, round and reactive pupils present Neck Other: Kyphosis, tenderness with palpation of her neck muscles and C-spine diffusely Chest Chest palpation & inspection: normal inspection of the chest and normal palpation of entire chest wall Resp Effort & Inspection: normal respiratory effort and able to speak in complete sentences Auscultation: clear to auscultation bilaterally Cardio Rate: regular rate Rhythm: regular rhythm Heart sounds: S1 normal heart sound present, S2 normal heart sound present and no murmurs GI Other: Abdomen is obese, mild diffuse tenderness, normoactive bowel sounds, does appear to be distended. General: Yes no CVA tenderness Back/Spine/Pelvis Back: no CVA tenderness Skin General skin exam: no rashes or lesions noted Neuro Other: Dysarthric speech, oriented to person and place. The patient is able to hold both her left and right upper extremity up against gravity but she does seem to have some slight drift on the right compared to the left, she is able to lift both lower extremities up against gravity but only minimally. Cranial nerves: Yes CN's II-XII intact bilaterally and Yes Equal, round and reactive pupils present Cognition (Neuro): normal cognition Extrem General: Yes normal to inspection Psych Appearance: grossly normal Attitude: cooperative Course Course Course Narrative: 61-year-old female who was sent to the emergency department from her care facility for evaluation of altered mental status with reported fall with possible head injury 1 week prior. The patient does have a history of aphasia and on my exam she had a CT dysarthric speech which is difficult to comprehend, she is oriented to person and place and she does follow commands. Patient's examination did reveal diffuse abdominal tenderness, she is able to move all extremities symmetrically except for some slight drift to the right upper extremity when she holds her arms up against gravity. She does have generalized weakness but I think that it symmetric. Did order laboratory evaluation to include CBC, CMP, COVID-19, lactic acid, lipase, urinalysis, blood cultures x2, 12 EKG, CT scan of the cervical spine, CT scan of the brain and chest x-ray. 1206: Laboratory evaluation: Anemia with an H&H of 10 and 34.8 with a normal MCV. Normal WBC 9800. Elevated chloride 110, low carbon dioxide 20, elevated glucose 162, elevated AST, ALT, alkaline phosphatase 216, 376 and 205. These elevations are new compared to 12/02/2021. Chest x-ray one view, question left basilar infiltrate. 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 Given the laboratory abnormalities, I did order a CT scan of the abdomen pelvis with IV contrast to evaluate the patient's abdomen. Given the possibility of a left lower lobe pneumonia, patient was ordered to get Zosyn 4.5 g IV, this would also give her bowel covered. 1436: CT scan of the abdomen pelvis result is as follows: Limited exam due to motion artifact. Gallstone in the neck of the gallbladder. Question gallbladder wall thickening and edema and small amount of pericholecystic fluid. Appearance is concerning for acute cholecystitis. Upper ventral hernia containing distal stomach. No evidence of obstruction. 1 cm enhancing lesion in the liver question representing a benign hemangioma. Given this result, I will contact the on-call surgeon, Dr. Pollard as discussed possible admission and further treatment. 1449: I did discuss the patient with the covering surgeon and he came to the emergency department saw the patient. He is requesting that the patient be admitted to medicine for IV antibiotics and he will consult for surgery. I also spoke to the patient's sister, Chantale Rodríguez's who states that she makes all the decisions with the patient given the patient's dementia. Chantale Nolan who can be reached at . I will discuss patient's case with the hospitalist. 1457: I discuss the patient's presentation with the covering hospitalist, Dr. Christian frank and the patient will be admitted for further treatment. Medical Decision Making Lab Data Result diagrams: 12/22/21 10:27 12/22/21 10:27 Labs: Lab Results 12/22/21 12/22/21 12/22/21 Range/Units 10:27 10:27 10:27 WBC 9.8 (4.8-10.8) X10*3/uL RBC 3.75 L (4.20-5.50) X10*6/uL Hgb 10.8 L (12.0-16.0) g/dl Hct 34.3 L (37.0-47.0) % MCV 91.5 (80.0-98.0) fL MCH 28.8 (27.0-33.0) pg MCHC 31.5 (31.0-35.0) g/dl RDW 13.5 (11.0-16.0) % Plt Count 356 (160-400) X10*3/uL MPV 9.0 L (9.4-12.3) fL Immature Gran % (Auto) 0.6 H (0.0-0.4) % Neut % (Auto) 52.8 (45-73) % Lymph % (Auto) 17.1 L (20-40) % [place] % (Auto) 5.4 (2-11) % Eos % (Auto) 23.7 H (0-4) % Baso % (Auto) 0.4 (0-2) % Lymph # (Auto) 1.7 (1.2-4.9) X10*3/uL [place] # (Auto) 0.5 (0.1-1.2) X10*3/uL Eos # (Auto) 2.3 H (0.0-0.4) X10*3/uL Baso # (Auto) 0.0 (0.0-0.2) X10*3/uL Abs Immat Gran (auto) 0.06 H (0.00-0.03) X10*3/uL Absolute Neuts (auto) 5.2 (2.0-8.3) x10*3/uL Absolute Nucleated RBC 0.000 (0.0-0.012) X10*3/uL Nucleated RBC % (auto) 0.0 (0.0-0.2) /100WBC Smear Tech's Comments VERIFIED Sodium 140 (135-145) mmol/L Potassium 3.8 (3.3-5.1) mmol/L Chloride 110 H (96-108) mmol/L Carbon Dioxide 20 L (22-29) mmol/L Anion Gap 14 (12-20) BUN 14 (9-16) mg/dL Creatinine 0.82 (0.5-1.4) mg/dL Estim Creat Clear Calc 72.0 Estimated GFR > 60 Random Glucose 162 H (60-115) mg/dL Lactic Acid 1.9 (0.5-2.0) mmol/L Calcium 8.6 D (8.4-10.2) mg/dL Total Bilirubin 1.0 (0.0-1.0) mg/dL AST 216 H (5-31) U/L ALT 376 H (0-31) U/L Alkaline Phosphatase 205 H D (39-117) U/L Total Protein 5.8 L (6.5-8.0) g/dL Albumin 3.2 L D (3.5-5.0) g/dL Lipase 72 (8-78) U/L Urine Color Urine Appearance Urine pH (5.0-8.0) Ur Specific [place] (1.005-1.025) Urine Protein (NEG-TRACE) MG/DL Urine Glucose (UA) (NEG) MG/DL Urine Ketones (NEG) MG/DL Urine Blood (NEG) Urine Nitrite (NEG) Ur Leukocyte Esterase (NEG) COVID-19 (OK) (Negative) COVID-19 Clin Com 12/22/21 12/22/21 Range/Units 10:52 10:52 WBC (4.8-10.8) X10*3/uL RBC (4.20-5.50) X10*6/uL Hgb (12.0-16.0) g/dl Hct (37.0-47.0) % MCV (80.0-98.0) fL MCH (27.0-33.0) pg MCHC (31.0-35.0) g/dl RDW (11.0-16.0) % Plt Count (160-400) X10*3/uL MPV (9.4-12.3) fL Immature Gran % (Auto) (0.0-0.4) % Neut % (Auto) (45-73) % Lymph % (Auto) (20-40) % [place] % (Auto) (2-11) % Eos % (Auto) (0-4) % Baso % (Auto) (0-2) % Lymph # (Auto) (1.2-4.9) X10*3/uL [place] # (Auto) (0.1-1.2) X10*3/uL Eos # (Auto) (0.0-0.4) X10*3/uL Baso # (Auto) (0.0-0.2) X10*3/uL Abs Immat Gran (auto) (0.00-0.03) X10*3/uL Absolute Neuts (auto) (2.0-8.3) x10*3/uL Absolute Nucleated RBC (0.0-0.012) X10*3/uL Nucleated RBC % (auto) (0.0-0.2) /100WBC Smear Tech's Comments Sodium (135-145) mmol/L Potassium (3.3-5.1) mmol/L Chloride (96-108) mmol/L Carbon Dioxide (22-29) mmol/L Anion Gap (12-20) BUN (9-16) mg/dL Creatinine (0.5-1.4) mg/dL Estim Creat Clear Calc Estimated GFR Random Glucose (60-115) mg/dL Lactic Acid (0.5-2.0) mmol/L Calcium (8.4-10.2) mg/dL Total Bilirubin (0.0-1.0) mg/dL AST (5-31) U/L ALT (0-31) U/L Alkaline Phosphatase (39-117) U/L Total Protein (6.5-8.0) g/dL Albumin (3.5-5.0) g/dL Lipase (8-78) U/L Urine Color YELLOW Urine Appearance CLEAR Urine pH 6.0 (5.0-8.0) Ur Specific [place] >= 1.030 H (1.005-1.025) Urine Protein TRACE (NEG-TRACE) MG/DL Urine Glucose (UA) NEG (NEG) MG/DL Urine Ketones NEG (NEG) MG/DL Urine Blood NEG (NEG) Urine Nitrite NEG (NEG) Ur Leukocyte Esterase NEG (NEG) COVID-19 (OK) Negative (Negative) COVID-19 Clin Com See Note Discharge Plan Discharge Prescriptions: No Action lamotrigine 150 mg Tablet 150 mg PO BID 0RF cetirizine 10 mg Tablet 10 mg PO DAILY 0RF clozapine [Clozaril] 100 mg Tablet 100 mg PO BEDTIME 0RF oxycodone-acetaminophen 5-325 mg Tablet 1 tab PO Q4H PRN (Reason: Pain) 0RF citalopram 20 mg Tablet 20 mg PO DAILY 0RF calcium carbonate [Tums 500] 500 mg calcium (1,250 mg) Tablet,Chewable 500 mg PO Q8H PRN (Reason: Heartburn) 0RF aripiprazole [Abilify] 5 mg Tablet 2.5 mg PO DAILY 0RF acetaminophen 325 mg tablet 650 mg PO Q6H PRN (Reason: Pain) 0RF famotidine 40 mg tablet 40 mg PO DAILY 0RF gemfibrozil 600 mg tablet 600 mg PO BID 0RF ibuprofen 600 mg tablet 600 mg PO Q8H PRN (Reason: Pain) 0RF loperamide 2 mg capsule 2 mg PO Q6H PRN (Reason: Diarrhea) 0RF sodium chloride [[employer] Nasal] 0.65 % aerosol,spray 1 spray intranasal Q8H PRN (Reason: Nasal Congestion) 0RF omeprazole 20 mg capsule,delayed release(DR/EC) 20 mg PO DAILY 0RF sennosides [Natural Senna Laxative] 8.6 mg tablet 8.6 mg PO Q24H PRN (Reason: Constipation) 0RF
[2021-12-22 10:34] LABS: Basophils Percent Auto 0.4 % (0-2); Eosinophils Absolute Auto 2.3 X10*3/uL (0.0-0.4); Eosinophils Percent Auto 23.7 % (0-4); Hematocrit 34.3 % (37.0-47.0); Hemoglobin 10.8 g/dl (12.0-16.0); Imm Gran Abs Auto 0.06 X10*3/uL (0.00-0.03); Imm Gran Pct Auto 0.6 % (0.0-0.4); Lymphocytes Absolute Auto 1.7 X10*3/uL (1.2-4.9); Lymphocytes Percent Auto 17.1 % (20-40); MANUAL DIFF FLAG SCAN; Mean Corpuscular HGB Conc 31.5 g/dl (31.0-35.0); Mean Corpuscular Hemoglobin 28.8 pg (27.0-33.0); Mean Corpuscular Volume 91.5 fL (80.0-98.0); Monocytes Absolute Auto 0.5 X10*3/uL (0.1-1.2); Monocytes Percent Auto 5.4 % (2-11); Neutrophils Absolute Auto 5.2 x10*3/uL (2.0-8.3); Neutrophils Percent Auto 52.8 % (45-73); Platelet Count 356 X10*3/uL (160-400); Red Blood Count 3.75 X10*6/uL (4.20-5.50); Red Cell Distribution Width 13.5 % (11.0-16.0); SCAN SMEAR FLAG 1; White Blood Count 9.8 X10*3/uL (4.8-10.8)
[2021-12-22 10:47] LABS: Lactic Acid 1.9 mmol/L (0.5-2.0)
[2021-12-22 10:52] LABS: SLIDE REVIEW VERIFIED
[2021-12-22 10:54] LABS: Alanine Aminotransferase 376 U/L (0-31); Albumin Level 3.2 g/dL (3.5-5.0); Alkaline Phosphatase 205 U/L (39-117); Anion Gap 14 (12-20); Aspartate Amino Transferase 216 U/L (5-31); Blood Urea Nitrogen 14 mg/dL (9-16); Calcium 8.6 mg/dL (8.4-10.2); Carbon Dioxide 20 mmol/L (22-29); Chloride 110 mmol/L (96-108); Estimated Glomerular Filt Rate > 60; Glucose Random 162 mg/dL (60-115); Lipase 72 U/L (8-78); Potassium 3.8 mmol/L (3.3-5.1); Sodium 140 mmol/L (135-145); Total Protein 5.8 g/dL (6.5-8.0)
[2021-12-22 11:09] LABS: Appearance Urine CLEAR; Color Urine YELLOW; Glucose Urine UA NEG (NEG); Leukocyte Esterase Urine NEG (NEG); Nitrite Urine NEG (NEG); Specific Gravity - Urine >= 1.030 (1.005-1.025); Urine Blood NEG (NEG); Urine Ketones NEG (NEG); Urine Protein TRACE MG/DL (NEG-TRACE)
[2021-12-22 11:41] LABS: COVID-19 Test Negative (Negative)
[2021-12-22] MEDS: Piperacillin Sodium/Tazobactam 4.5 GM in 0.9 % Sodium Chloride 100 ML IV ×3 (12:36→23:46)
--- NOTE | 2021-12-22 12:43 | PHA.MEDREC ---
Pharmacy Consult ? Medication Reconciliation Pharmacy has completed the medication reconciliation. Patient came from [facility] with a medication list. Darcie Mustafa, GermainD
[2021-12-22] MEDS: iohexoL 350 MG/ML 100 ML INFUS..BTL 85 ML IV (12:56)
--- NOTE | 2021-12-22 15:40 | PM.CNGS ---
History of Present Illness Consult details Consult date: 12/22/21 Narrative: 61-year-old female with multiple medical problems including dementia, traumatic brain injury with known gallstones, who was brought [facility] the ER from the [facility] because of altered mental status. She at apparently had fallen in the [facility] about a week ago. She described to be more unsteady with her gait today and had some worsening of her slurring speech. She had some was described as changes in her mental status. I am uncertain exactly as to what details are. She was therefore sent to the ER. The emergency room physician had thought that she had some mild diffuse abdominal tenderness show a CT scan was done and that she had gallstones with some thickening of the gallbladder wall. I was therefore consulted. The patient denies abdominal pain at this time. She has significant slurring of speech although seems to answer some very simple questions. Review of Systems Review of Systems: Not available in view the patient being not adequately communicative PMFSH Past Medical History Medical History Aphasia Chondrocostal junction syndrome Delusional disorder Dementia Disruptive mood dysregulation disorder Gallstones GERD (gastroesophageal reflux disease) Hx of migraine headaches Hyperlipidemia Myopia Obsessive compulsive disorder Raynauds syndrome Traumatic brain injury Family History Family History Maternal Grandmother Breast cancer Social History Social History Household Members: None [facility]: [facility] Do you presently have visiting nurse or other home services: No Unable to assess alcohol history related to: Unknown Patient Tobacco Use Status: Never used Tobacco e-Cigarette/Vaping Use: Never Used Advance Directives Date on File: 12/03/21 service: No Current occupational status: disabled Meds Allergies Allergy/AdvReac Type Severity Reaction Status Date / Time No Known Allergies Allergy Verified 12/23/21 17:09 Active Medications: Current Medications Aripiprazole (Aripiprazole 5 Mg Tablet) 2.5 mg PO DAILY PRI[facility]ANKA Enoxaparin Sodium (Enoxaparin Sodium 40 Mg/0.4 Ml Syringe) 40 mg SUBCUT Q24H PRIYANKA Famotidine (Famotidine 20 Mg Tablet) 40 mg PO DAILY PRIYANKA Gemfibrozil (Gemfibrozil 600 Mg Tablet) 600 mg PO BID PRIYANKA Piperacillin Sod/Tazobactam (Sod 4.5 gm/ Sodium Chloride) 100 mls @ 200 mls/hr IV RQ6H ONE Stop: 12/22/21 15:48 Vancomycin HCl 1,250 mg/ (Sodium Chloride) 250 mls @ 166.667 mls/hr IV ONCE ONE Stop: 12/22/21 16:48 Lamotrigine (Lamotrigine 25 Mg Tablet) 150 mg PO BID [facility] Loperamide HCl (Loperamide Hcl 2 Mg Capsule) 2 mg PO Q6H PRN PRN Reason: Diarrhea Loratadine (Loratadine 10 Mg Tablet) 10 mg PO DAILY [facility] Non-Formulary Medication (Calcium Carbonate) 500 mg PO Q8H PRN PRN Reason: Heartburn Non-Formulary Medication (Citalopram) 20 mg PO DAILY [facility] Pharmacy Consult (Consult Rx Vancomycin Dosing) 1 each MISCELLANE DAILY PRN PRN Reason: Consult order Senna (Sennosides 8.6 Mg Tablet) 8.6 mg PO Q24H PRN PRN Reason: Constipation Sodium Chloride (Sodium Chloride 0.65 % Nasal 44 Ml Sprbtl) 1 spray NOSTRIL-B Q8H PRN PRN Reason: Nasal Congestion Sodium Chloride (0.9 % Sodium Chloride Flush 3 Ml Syringe) 3 ml IVFLUSH QSHIFT [facility] Home Medications Medication Instructions Recorded Confirmed Last Taken Type acetaminophen 325 mg tablet 650 mg PO Q6H PRN 03/17/21 12/22/21 Unknown History famotidine 40 mg tablet 40 mg PO DAILY 03/17/21 12/22/21 Unknown History gemfibrozil 600 mg tablet 600 mg PO BID 03/17/21 12/22/21 Unknown History ibuprofen 600 mg tablet 600 mg PO Q8H PRN 03/17/21 12/22/21 Unknown History loperamide 2 mg capsule 2 mg PO Q6H PRN 03/17/21 12/22/21 Unknown History omeprazole 20 mg capsule,delayed 20 mg PO DAILY 03/17/21 12/22/21 Unknown History release sennosides 8.6 mg tablet (Natural 8.6 mg PO Q24H PRN 03/17/21 12/22/21 Unknown History Senna Laxative) sodium chloride 0.65 % nasal spray 1 spray INTRANASAL Q8H PRN 03/17/21 12/22/21 Unknown History aerosol ([place] Nasal) aripiprazole 5 mg tablet (Abilify) 2.5 mg PO DAILY 12/22/21 12/22/21 Unknown History calcium carbonate 500 mg calcium 500 mg PO Q8H PRN 12/22/21 12/22/21 Unknown History (1,250 mg) chewable tablet cetirizine 10 mg tablet 10 mg PO DAILY 12/22/21 12/22/21 Unknown History citalopram 20 mg tablet 20 mg PO DAILY 12/22/21 12/22/21 Unknown History clozapine 100 mg tablet (Clozaril) 100 mg PO BEDTIME 12/22/21 12/22/21 Unknown History lamotrigine 150 mg tablet 150 mg PO BID 12/22/21 12/22/21 Unknown History oxycodone-acetaminophen 5 mg-325 1 tab PO Q4H PRN 12/22/21 12/22/21 Unknown History mg tablet Physical Exam Vital Signs: Vital Signs: Last Vital Signs Temp 97.5 F 12/22/21 12:32 Pulse 75 12/22/21 13:46 Resp 17 12/22/21 13:46 BP 99/54 L 12/22/21 13:46 Pulse Ox 98 12/22/21 13:46 BMI result Body Mass Index 30.4 Const: Other: Has significant dysarthria although this may be chronic General: comfortable and no acute distress Resp: Effort & Inspection: normal respiratory effort Cardio: Rhythm: regular rhythm GI: Other: Soft, no obvious tenderness, no guarding rebound, no Ann's sign Results Labs Result diagrams: 12/24/21 05:37 12/24/21 05:37 Labs: Abnormal lab results 12/22/21 12/22/21 12/22/21 Range/Units 10:27 10:27 10:52 RBC 3.75 L (4.20-5.50) X10*6/uL Hgb 10.8 L (12.0-16.0) g/dl Hct 34.3 L (37.0-47.0) % MPV 9.0 L (9.4-12.3) fL Immature Gran % (Auto) 0.6 H (0.0-0.4) % Lymph % (Auto) 17.1 L (20-40) % Eos % (Auto) 23.7 H (0-4) % Eos # (Auto) 2.3 H (0.0-0.4) X10*3/uL Abs Immat Gran (auto) 0.06 H (0.00-0.03) X10*3/uL Chloride 110 H (96-108) mmol/L Carbon Dioxide 20 L (22-29) mmol/L Random Glucose 162 H (60-115) mg/dL AST 216 H (5-31) U/L ALT 376 H (0-31) U/L Alkaline Phosphatase 205 H D (39-117) U/L Total Protein 5.8 L (6.5-8.0) g/dL Albumin 3.2 L D (3.5-5.0) g/dL Ur Specific [place] >= 1.030 H (1.005-1.025) Short CBC 12/22/21 Range/Units 10:27 WBC 9.8 (4.8-10.8) X10*3/uL Hgb 10.8 L (12.0-16.0) g/dl Hct 34.3 L (37.0-47.0) % Plt Count 356 (160-400) X10*3/uL BMP 12/22/21 10:27 Sodium 140 Potassium 3.8 Chloride 110 H Carbon Dioxide 20 L BUN 14 Creatinine 0.82 Calcium 8.6 D Liver Function 12/22/21 Range/Units 10:27 Total Bilirubin 1.0 (0.0-1.0) mg/dL AST 216 H (5-31) U/L ALT 376 H (0-31) U/L Alkaline Phosphatase 205 H D (39-117) U/L Albumin 3.2 L D (3.5-5.0) g/dL Urine 12/22/21 Range/Units 10:52 Urine Color YELLOW Urine Appearance CLEAR Urine pH 6.0 (5.0-8.0) Ur Specific [place] >= 1.030 H (1.005-1.025) Urine Protein TRACE (NEG-TRACE) MG/DL Urine Glucose (UA) NEG (NEG) MG/DL All other labs normal. Imaging Abdomen CT scan report/results: report reviewed and image reviewed CT scan - pelvis: report reviewed and image reviewed Assessment and Plan (1) Gallstones: Status: Acute She has a resident of [facility] with dementia, traumatic brain injury, and was sent to the ER because of slurring of speech, and unsteady gait. She had a history of a fall 1 week ago. She had a CAT scan of the abdomen because of an of tenderness on examination and this showed gallstones with some question of thickening of the gallbladder wall. Clinically however, she does not have any significant tenderness on the right upper quadrant. Furthermore, she has no leukocytosis. She does have pneumonia on the left lower lung martinez. At this time, I would not proceed with cholecystectomy. I would recommend her on IV antibiotics however. She has no significant tenderness on the upper quadrant nor leukocytosis but she does have suggestion of pneumonia on the left side. She can have clear liquids for now. I had a long discussion with her sister Chantale on the phone with regards to above and she says he understands the plan and is comfortable with this. The patient will be admitted to medical service because of her altered mental status along with pneumonia. Procedures Date of Service Date of Service: 12/22/21
[2021-12-22] MEDS: Enoxaparin Sodium 40 MG/0.4 ML SYRINGE SUBCUT (16:08)
--- NOTE | 2021-12-22 16:38 | P.HPHOSP_ITS ---
History of Present Illness Date of Service: 12/22/21 Chief Complaint: altered mental status 61-year-old female who was sent to the emergency department from her care facility for evaluation of altered mental status.? The nursing facility reports that the patient fell approximately 1 week prior with possible head injury.? Today, the patient appeared to be unsteady and altered with slurred speech.? this is a change per care [facility] staff. Workup in the emergency room including CT of head neck and chest x-ray demonstrated a left lower lobe infiltrate; CT of abdomen demonstrated a stone in the common duct however patient was seen by surgery and this was felt not to be an acute issue. She will be admitted for treatment of pneumonia. Review of Systems Review of Systems: Unable secondary to dementia [facility] Medical History Aphasia Chondrocostal junction syndrome Delusional disorder Dementia Disruptive mood dysregulation disorder Gallstones GERD (gastroesophageal reflux disease) Hx of migraine headaches Hyperlipidemia Myopia Obsessive compulsive disorder Raynauds syndrome Traumatic brain injury Family History Maternal Grandmother Breast cancer Social History Smoked in Last 30 Days: No Use of substances other than those prescribed or required for medical reasons: No Advance Directives: Yes Advance Directives on File: Yes Advance Directives Date on File: 12/03/21 Meds Allergies Allergy/AdvReac Type Severity Reaction Status Date / Time No Known Allergies Allergy Verified 07/01/21 15:13 Active Medications: Current Medications Aripiprazole (Aripiprazole 5 Mg Tablet) 2.5 mg PO DAILY PRIYANKA Enoxaparin Sodium (Enoxaparin Sodium 40 Mg/0.4 Ml Syringe) 40 mg SUBCUT Q24H PRIYANKA Last Admin: 12/22/21 16:08 Dose: 40 mg Documented by: Escitalopram Oxalate (Escitalopram Oxalate 10 Mg Tablet) 10 mg PO DAILY PRIYANKA Famotidine (Famotidine 20 Mg Tablet) 40 mg PO DAILY PRIYANKA Gemfibrozil (Gemfibrozil 600 Mg Tablet) 600 mg PO BID PRIYANKA Piperacillin Sod/Tazobactam (Sod 4.5 gm/ Sodium Chloride) 100 mls @ 200 mls/hr IV Q6H PRIYANKA Vancomycin HCl 1,250 mg/ (Sodium Chloride) 250 mls @ 166.667 mls/hr IV ONCE ONE Stop: 12/22/21 16:48 Lamotrigine (Lamotrigine 25 Mg Tablet) 150 mg PO BID [facility] Loperamide HCl (Loperamide Hcl 2 Mg Capsule) 2 mg PO Q6H PRN PRN Reason: Diarrhea Loratadine (Loratadine 10 Mg Tablet) 10 mg PO DAILY [facility] Non-Formulary Medication (Calcium Carbonate) 500 mg PO Q8H PRN PRN Reason: Heartburn Pharmacy Consult (Consult Rx Vancomycin Dosing) 1 each MISCELLANE DAILY PRN PRN Reason: Consult order Senna (Sennosides 8.6 Mg Tablet) 8.6 mg PO Q24H PRN PRN Reason: Constipation Sodium Chloride (Sodium Chloride 0.65 % Nasal 44 Ml Sprbtl) 1 spray NOSTRIL-B Q8H PRN PRN Reason: Nasal Congestion Sodium Chloride (0.9 % Sodium Chloride Flush 3 Ml Syringe) 3 ml IVFLUSH QSHIFT [facility] Home Medications Medication Instructions Recorded Confirmed Last Taken Type acetaminophen 325 mg tablet 650 mg PO Q6H PRN 03/17/21 12/22/21 Unknown History famotidine 40 mg tablet 40 mg PO DAILY 03/17/21 12/22/21 Unknown History gemfibrozil 600 mg tablet 600 mg PO BID 03/17/21 12/22/21 Unknown History ibuprofen 600 mg tablet 600 mg PO Q8H PRN 03/17/21 12/22/21 Unknown History loperamide 2 mg capsule 2 mg PO Q6H PRN 03/17/21 12/22/21 Unknown History omeprazole 20 mg capsule,delayed 20 mg PO DAILY 03/17/21 12/22/21 Unknown History release sennosides 8.6 mg tablet (Natural 8.6 mg PO Q24H PRN 03/17/21 12/22/21 Unknown History Senna Laxative) sodium chloride 0.65 % nasal spray 1 spray INTRANASAL Q8H PRN 03/17/21 12/22/21 Unknown History aerosol ([place] Nasal) aripiprazole 5 mg tablet (Abilify) 2.5 mg PO DAILY 12/22/21 12/22/21 Unknown History calcium carbonate 500 mg calcium 500 mg PO Q8H PRN 12/22/21 12/22/21 Unknown History (1,250 mg) chewable tablet cetirizine 10 mg tablet 10 mg PO DAILY 12/22/21 12/22/21 Unknown History citalopram 20 mg tablet 20 mg PO DAILY 12/22/21 12/22/21 Unknown History clozapine 100 mg tablet (Clozaril) 100 mg PO BEDTIME 12/22/21 12/22/21 Unknown History lamotrigine 150 mg tablet 150 mg PO BID 12/22/21 12/22/21 Unknown History oxycodone-acetaminophen 5 mg-325 1 tab PO Q4H PRN 12/22/21 12/22/21 Unknown History mg tablet Physical Exam Vital Signs and Narrative: Vital Signs: Last Vital Signs Temp 97.6 F 12/22/21 16:03 Pulse 81 12/22/21 16:03 Resp 22 H 12/22/21 16:03 BP 97/48 L 12/22/21 16:03 Pulse Ox 96 12/22/21 16:03 BMI result Body Mass Index 30.4 Const: Other: awake alert no acute distress Resp: Other: diminished left base with fine crackles noted Cardio: Other: no S4; positive S1-S2; no S3 murmurs rubs gallops GI: Other: soft nontender nondistended. Normoactive bowel sounds x4 quadrants Neuro: Other: (see patient known to me) moves all extremity with with equal power. . . At baseline Extrem: Other: no edema bilaterally Results Labs CBC and Chem 7: 12/22/21 10:27 12/22/21 10:27 Labs: Laboratory Results - last 24 hr 12/22/21 12/22/21 12/22/21 10:27 10:27 10:27 MCV 91.5 MCH 28.8 MCHC 31.5 RDW 13.5 Plt Count 356 MPV 9.0 L Immature Gran % (Auto) 0.6 H Neut % (Auto) 52.8 Lymph % (Auto) 17.1 L Schley % (Auto) 5.4 Eos % (Auto) 23.7 H Baso % (Auto) 0.4 Lymph # (Auto) 1.7 Schley # (Auto) 0.5 Eos # (Auto) 2.3 H Baso # (Auto) 0.0 Abs Immat Gran (auto) 0.06 H Absolute Neuts (auto) 5.2 Absolute Nucleated RBC 0.000 Nucleated RBC % (auto) 0.0 Smear Tech's Comments VERIFIED Anion Gap 14 Estim Creat Clear Calc 72.0 Estimated GFR > 60 Random Glucose 162 H Lactic Acid 1.9 Calcium 8.6 D Total Bilirubin 1.0 AST 216 H ALT 376 H Alkaline Phosphatase 205 H D Total Protein 5.8 L Albumin 3.2 L D Lipase 72 Urine Color Urine Appearance Urine pH Ur Specific [place] Urine Protein Urine Glucose (UA) Urine Ketones Urine Blood Urine Nitrite Ur Leukocyte Esterase COVID-19 (OK) COVID-19 Clin Com 12/22/21 12/22/21 10:52 10:52 MCV MCH MCHC RDW Plt Count MPV Immature Gran % (Auto) Neut % (Auto) Lymph % (Auto) Schley % (Auto) Eos % (Auto) Baso % (Auto) Lymph # (Auto) Schley # (Auto) Eos # (Auto) Baso # (Auto) Abs Immat Gran (auto) Absolute Neuts (auto) Absolute Nucleated RBC Nucleated RBC % (auto) Smear Tech's Comments Anion Gap Estim Creat Clear Calc Estimated GFR Random Glucose Lactic Acid Calcium Total Bilirubin AST ALT Alkaline Phosphatase Total Protein Albumin Lipase Urine Color YELLOW Urine Appearance CLEAR Urine pH 6.0 Ur Specific [place] >= 1.030 H Urine Protein TRACE Urine Glucose (UA) NEG Urine Ketones NEG Urine Blood NEG Urine Nitrite NEG Ur Leukocyte Esterase NEG COVID-19 (OK) Negative COVID-19 Clin Com See Note Imaging Radiologist's Impressions: Impressions Chest X-Ray 12/22/21 11:26 IMPRESSION: Question left base infiltrate. Cervical Spine CT 12/22/21 11:38 IMPRESSION: Degenerative changes. No fracture or dislocation seen. Fleischner guidelines were followed. Head CT 12/22/21 11:38 IMPRESSION: No acute findings. 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 Abdomen/Pelvis CT 12/22/21 12:57 IMPRESSION: Limited exam due to motion artifact. Gallstone in the neck of the gallbladder. Question gallbladder wall thickening and edema and small amount of pericholecystic fluid. Appearance is concerning for acute cholecystitis. Upper ventral hernia containing distal stomach. No evidence of obstruction. 1 cm enhancing lesion in the liver question representing a benign hemangioma. Fleischner guidelines were followed. Assessment and Plan (1) Pneumonia: Status: Acute (2) Gallstones: Status: Acute (3) Traumatic brain injury: Status: Acute (4) Dementia: Status: Acute Plan 61-year-old female with multiple medical problems including dementia, traumatic brain injury with known gallstones, who [facility] because of altered mental status changes.ER workup revealed left base infiltrate. CT scan suspicious fo Chlecystitis ; seen by surgery. Advised conservative management 1. Left base pneumonia(HAP) -Vanco/zosyn - titrate O2/prn nebs - supplemental IVFs 2. Transaminitis -likely D/T stone -trend LFT's in am 3.TBI/dementia -continue outpatient therapies. -adjust as indicated. Lovenox Full code Quality Stroke Does the patient have a stroke diagnosis?: No VTE Prior VTE?: No VTE Risk Level:: Medical - moderate - high VTE Device Contraindication: Treatment Not Indicated VTE Drug Contraindication: N/A - Med Ordered
[2021-12-22] MEDS: vancomycin HCL 1,250 MG in 0.9 % Sodium Chloride 250 ML 166.67 MG IV (17:28)
[2021-12-22] MEDS: 0.9 % Sodium Chloride Flush 3 ML SYRINGE IVFLUSH ×2 (17:34→23:47)
--- NOTE | 2021-12-22 18:30 | MHC.CM.PN ---
CM attempted to meet with patient. Pt TBI, aphasia. Oriented to person. Pt has guardian and MOLST, both on file. Guardian/sister Mary Nolan ([phone]). IMM reviewed with guardian 12/22/2021@4853. Copy left at bedside and to Medical records. Lives at [facility]. Uses rollator walker. Fully vaccinated/boosted with Moderna. D/C plan: return to [facility]. Will need transport.
[2021-12-22] MEDS: gemfibroziL 600 MG TABLET PO (21:55)
[2021-12-22] MEDS: lamoTRIgine 25 MG TABLET 150 MG PO (21:56)
--- NOTE | 2021-12-22 23:29 | PC.NURSE ---
Pt came from the ED to bed 8 overflow at 2030, alert and oriented to self, difficultly find words, stutters, accompanied to the BR and pt has shuffling gait, still with some SOB on exertion, Sating on the mid to high 90s, tolerating O2 at 2L/min via NC, abd round, soft, mild tenderness on the leftside of the abd, + BS, no edema noted, meds tolerated whole with water, voiding fine, bed alarm on, encouraged to use callbell.
--- NOTE | 2021-12-23 01:06 | PC.NURSE ---
Took over care of patient around midnight. A&OX2, self and place. Forgetful. LS-crackles in LLL. No cough or sob noted. IV antibiotics as ordered. BS+X4. No reports of N/V/D. No c/opain/discomfort. Bed alarm on for safety. Will continue to monitor.
[2021-12-23] MEDS: vancomycin HCL 1,000 MG in 0.9 % Sodium Chloride 250 ML 270 MG IV (05:25)
[2021-12-23 05:40] VITALS: BP 104/52; PULSE 80; RESP 16; TEMP 37.1; O2SAT 94
[2021-12-23] MEDS: Piperacillin Sodium/Tazobactam 4.5 GM in 0.9 % Sodium Chloride 100 ML IV ×4 (06:19→23:25)
[2021-12-23 07:29] LABS: Basophils Percent Auto 0.4 % (0-2); Eosinophils Absolute Auto 2.9 X10*3/uL (0.0-0.4); Eosinophils Percent Auto 31.5 % (0-4); Hematocrit 34.7 % (37.0-47.0); Imm Gran Abs Auto 0.04 X10*3/uL (0.00-0.03); Imm Gran Pct Auto 0.4 % (0.0-0.4); Lymphocytes Absolute Auto 1.2 X10*3/uL (1.2-4.9); Lymphocytes Percent Auto 13.1 % (20-40); MANUAL DIFF FLAG SCAN; Mean Corpuscular HGB Conc 31.7 g/dl (31.0-35.0); Mean Corpuscular Hemoglobin 29.2 pg (27.0-33.0); Mean Platelet Volume 9.1 fL (9.4-12.3); Monocytes Absolute Auto 0.6 X10*3/uL (0.1-1.2); Monocytes Percent Auto 6.8 % (2-11); Neutrophils Absolute Auto 4.4 x10*3/uL (2.0-8.3); Neutrophils Percent Auto 47.8 % (45-73); Platelet Count 318 X10*3/uL (160-400); Red Blood Count 3.77 X10*6/uL (4.20-5.50); Red Cell Distribution Width 13.7 % (11.0-16.0); SCAN SMEAR FLAG 1; White Blood Count 9.2 X10*3/uL (4.8-10.8)
[2021-12-23 07:51] LABS: SLIDE REVIEW VERIFIED
[2021-12-23 07:52] LABS: Alanine Aminotransferase 366 U/L (0-31); Albumin Level 2.9 g/dL (3.5-5.0); Alkaline Phosphatase 200 U/L (39-117); Anion Gap 14 (12-20); Aspartate Amino Transferase 234 U/L (5-31); Bilirubin Total 0.9 mg/dL (0.0-1.0); Blood Urea Nitrogen 10 mg/dL (9-16); Calcium 8.1 mg/dL (8.4-10.2); Carbon Dioxide 20 mmol/L (22-29); Chloride 110 mmol/L (96-108); Creatinine Clr Calc Pharmacy 77.7; Estimated Glomerular Filt Rate > 60; Glucose Fasting 111 mg/dL (60-99); Potassium 3.6 mmol/L (3.3-5.1); Sodium 140 mmol/L (135-145); Total Protein 5.1 g/dL (6.5-8.0)
[2021-12-23 08:12] VITALS: BP 109/55; PULSE 77; RESP 14; O2SAT 96
[2021-12-23] MEDS: lamoTRIgine 25 MG TABLET 150 MG PO ×2 (08:40→20:15)
[2021-12-23] MEDS: ARIPiprazole 5 MG TABLET 2.5 MG PO (08:40)
[2021-12-23] MEDS: gemfibroziL 600 MG TABLET PO ×2 (08:41→20:15)
[2021-12-23] MEDS: Loratadine 10 MG TABLET PO (08:41)
[2021-12-23] MEDS: Famotidine 20 MG TABLET 40 MG PO (08:41)
[2021-12-23] MEDS: Escitalopram Oxalate 10 MG TABLET PO (08:41)
--- NOTE | 2021-12-23 10:11 | PHA.PROG ---
Admission Date/Time: December 22, 2021 15:13 Indication: HAP Weight in k.8 kg Adjusted body weight in K.56 kg Goodrich body weight in K.4 kg Obesity Dosing Indication % IBW: 148 % Serum Creatinine - Last 168 Hours 12/22/21 12/23/21 10:27 06:57 Creatinine 0.82 0.76 Estimated CrCl and GFR - Last 168 Hours 12/22/21 12/23/21 10:27 06:57 Estim Creat Clear Calc 72.0 77.7 Estimated GFR > 60 > 60 Vancomycin Loading Dose: 1250 mg (16 mg/kg) Current Vancomycin Dosing Regimen: 1000 mg Q12H Date and Time for next Vancomycin Level to be drawn: 12/24 @ 1500 Pharmacist Comments on Vancomycin Plan: Patient is obese with IBW% > 120%. Dose adjusted due to obesity Patient did recieve one dose of vancomycin 1000 mg which can be consider part of her load as she was not given an adequate loading dose for her weight. Dose decrease to vancomycin 750 mg Q12H. Expected AUC 509 with a trough of 16.2. Pharmacy will monitor renal function daily. Will get a trough after two dose of vancomycin 750 mg Darcie Mustafa PharmD Vancomycin dosing will take advantage of [employer] as a clinical decision support tool that uses Bayesian modeling to calculate individual patient's pharmacokinetic parameters and forecast the patient's drug concentration time course with the target goal AUC 24 range of 400 - 600 mg/L/hr.
--- NOTE | 2021-12-23 10:17 | P.CDIC_ITS ---
CDI Concurrent Query Documentation Clarification: PHYSICIAN'S DOCUMENTATION REQUEST Date of Query: 12/23/21 1017 Patient Name: Jacklyn Krishna Admit Date: 12/22/21 Dear Doctor, A review of the medical record indicates additional documentation may be needed. Please review below and update the documentation accordingly. Clinical Indicators: Risk Factors/Clinical Indicators/Treatments Per ED note: altered mental status.?Today, the patient appeared to be unsteady and altered with slurred speech. This is a change per care 1 staff.? PMH: TBI and Dementia Based on the above, could you clarify in the Progress Notes which, if any of the following, is the most likely etiology of the confusion/altered mental status? * Encephalopathy - indicate type such as metabolic, toxic, septic, alcoholic, hypertensive, etc. * Dementia - indicate type of dementia, such as Alzheimer's, senile, vascular, Lewy body, etc. * Acute delirium - indicate known or suspected etiology, such as postoperative, due to narcotics or other drugs, etc. * Baseline dementia - indicate type, such as Alzheimer's, senile, vascular, Lewy body, etc., and any associated behavioral disturbances (aggressive, combative, or violent behavior) * Acute or subacute confusional state due to (specify known or suspected etiology) * Other etiology (please specify) * Unable to determine Use of terms such as suspected, likely, concern for, or probable (associated with a specific diagnosis that is being evaluated, monitored, or treated as if it exists) are acceptable and can be coded in the inpatient setting, when documented at the time of discharge. Thank you, Jemma Ovalle RN Extension: [phone] Please use your independent medical judgment in providing your response. THIS QUERY IS PART OF THE PERMANENT MEDICAL RECORD Provider Response: Other Other Diagnosis: Acute or subacute confusional state due to pneumonia
--- NOTE | 2021-12-23 10:39 | PC.NURSE ---
Pt resting in hospital bed. Meds given whole in applesauce with no issues. vss. Incontinence care provided. Pt incontinent of large quantity of urine. Linens changed as well. Pt offering no complaints. US completed at bedside awaiting results. Callbell and belongings within reach.
--- NOTE | 2021-12-23 15:38 | HO.PM.IMPN ---
Subjective Subjective Date of Service: 12/23/21 Review of Systems Unable secondary to dementia Physical Exam Vital Signs: Vital Signs: Last Vital Signs Temp 98.8 F 12/23/21 05:40 Pulse 77 12/23/21 08:12 Resp 14 12/23/21 08:12 BP 109/55 L 12/23/21 08:12 Pulse Ox 96 12/23/21 08:12 BMI result Body Mass Index 30.4 Const: Other: awake alert no acute distress Resp: Other: diminished left base with fine crackles noted Cardio: Other: no S4; positive S1-S2; no S3 murmurs rubs gallops GI: Other: soft nontender nondistended. Normoactive bowel sounds x4 quadrants Neuro: Other: (see patient known to me) moves all extremity with with equal power. . . At baseline Extrem: Other: no edema bilaterally Objective Data Active Medications Aripiprazole (Aripiprazole 5 Mg Tablet) 2.5 mg PO DAILY [facility] Last Admin: 12/23/21 08:40 Dose: 2.5 mg Documented by: ADAL Calcium Carbonate (Calcium Carbonate 500 Mg Tablet) 500 mg PO Q8H PRN PRN Reason: Heartburn Enoxaparin Sodium (Enoxaparin Sodium 40 Mg/0.4 Ml Syringe) 40 mg SUBCUT Q24H [facility] Last Admin: 12/22/21 16:08 Dose: 40 mg Documented by: CRISS Escitalopram Oxalate (Escitalopram Oxalate 10 Mg Tablet) 10 mg PO DAILY [facility] Last Admin: 12/23/21 08:41 Dose: 10 mg Documented by: ADAL Famotidine (Famotidine 20 Mg Tablet) 40 mg PO DAILY [facility] Last Admin: 12/23/21 08:41 Dose: 40 mg Documented by: ADAL Gemfibrozil (Gemfibrozil 600 Mg Tablet) 600 mg PO BID [facility] Last Admin: 12/23/21 08:41 Dose: 600 mg Documented by: ADAL Piperacillin Sod/Tazobactam (Sod 4.5 gm/ Sodium Chloride) 100 mls @ 200 mls/hr IV Q6H [facility] Last Infusion: 12/23/21 12:25 Dose: 0 mls/hr Documented by: ADAL Vancomycin HCl 750 mg/ Sodium (Chloride) 265 mls @ 265 mls/hr IV Q12H [facility] Lamotrigine (Lamotrigine 25 Mg Tablet) 150 mg PO BID [facility] Last Admin: 12/23/21 08:40 Dose: 150 mg Documented by: ADAL Loperamide HCl (Loperamide Hcl 2 Mg Capsule) 2 mg PO Q6H PRN PRN Reason: Diarrhea Loratadine (Loratadine 10 Mg Tablet) 10 mg PO DAILY [facility] Last Admin: 12/23/21 08:41 Dose: 10 mg Documented by: ADAL Pharmacy Consult (Consult Rx Vancomycin Dosing) 1 each MISCELLANE DAILY PRN PRN Reason: Consult order Senna (Sennosides 8.6 Mg Tablet) 8.6 mg PO Q24H PRN PRN Reason: Constipation Sodium Chloride (Sodium Chloride 0.65 % Nasal 44 Ml Sprbtl) 1 spray NOSTRIL-B Q8H PRN PRN Reason: Nasal Congestion Sodium Chloride (0.9 % Sodium Chloride Flush 3 Ml Syringe) 3 ml IVFLUSH QSHIFT [facility] Last Admin: 12/23/21 08:27 Dose: Not Given Documented by: ADAL Non-Admin Reason: Med Not Available Labs CBC & Chem 7: 12/23/21 06:57 12/23/21 06:57 Labs: Laboratory Results - last 24 hr 12/23/21 12/23/21 06:57 06:57 MCV 92.0 MCH 29.2 MCHC 31.7 RDW 13.7 Plt Count 318 MPV 9.1 L Immature Gran % (Auto) 0.4 Neut % (Auto) 47.8 Lymph % (Auto) 13.1 L [place] % (Auto) 6.8 Eos % (Auto) 31.5 H Baso % (Auto) 0.4 Lymph # (Auto) 1.2 [place] # (Auto) 0.6 Eos # (Auto) 2.9 H Baso # (Auto) 0.0 Abs Immat Gran (auto) 0.04 H Absolute Neuts (auto) 4.4 Absolute Nucleated RBC 0.000 Nucleated RBC % (auto) 0.0 Smear Tech's Comments VERIFIED Anion Gap 14 Estim Creat Clear Calc 77.7 Estimated GFR > 60 Fasting Glucose 111 H Calcium 8.1 L Total Bilirubin 0.9 AST 234 H ALT 366 H Alkaline Phosphatase 200 H Total Protein 5.1 L Albumin 2.9 L Microbiology Microbiology Results: Microbiology 12/22/21 11:35 Blood Culture - Preliminary Blood - Venous No growth after 24 hours. 12/22/21 10:27 Blood Culture - Preliminary Blood - Venous No growth after 24 hours. Assessment and Plan (1) Pneumonia: Status: Acute (2) Gallstones: Status: Acute (3) Traumatic brain injury: Status: Acute Plan 61-year-old female with multiple medical problems including dementia, traumatic brain injury with known gallstones, who [facility] because of altered mental status changes.ER workup revealed left base infiltrate. CT scan suspicious fo Chlecystitis ; seen by surgery. Advised conservative management 1. Left base pneumonia(HAP) -Vanco/zosyn(2) - titrate O2/prn nebs - supplemental IVFs 2. Transaminitis -likely D/T stone...verified by US. Exam benign -trend LFT's in am 3.TBI/dementia -continue outpatient therapies. -adjust as indicated. Lovenox Full code Quality Stroke Does the patient have a stroke diagnosis?: No VTE Prior VTE?: No VTE Risk Level:: Medical - moderate - high VTE Device Contraindication: Treatment Not Indicated VTE Drug Contraindication: N/A - Med Ordered
[2021-12-23] MEDS: Enoxaparin Sodium 40 MG/0.4 ML SYRINGE SUBCUT (16:00)
[2021-12-23] MEDS: vancomycin HCL 750 MG in 0.9 % Sodium Chloride 250 ML 265 MG IV (16:00)
[2021-12-23 19:32] VITALS: BP 115/54; PULSE 92; RESP 22; TEMP 36.7; O2SAT 98
[2021-12-23] MEDS: 0.9 % Sodium Chloride Flush 3 ML SYRINGE IVFLUSH (20:15)
[2021-12-23 23:29] VITALS: BP 101/52; PULSE 85; RESP 16; TEMP 37.3; O2SAT 93
[2021-12-24 03:58] VITALS: BP 116/61; PULSE 75; RESP 20; TEMP 36.9; O2SAT 93
[2021-12-24] MEDS: vancomycin HCL 750 MG in 0.9 % Sodium Chloride 250 ML 265 MG IV (04:35)
[2021-12-24] MEDS: Piperacillin Sodium/Tazobactam 4.5 GM in 0.9 % Sodium Chloride 100 ML IV ×3 (05:51→18:15)
[2021-12-24 06:11] LABS: Basophils Absolute Auto 0.1 X10*3/uL (0.0-0.2); Basophils Percent Auto 0.6 % (0-2); Eosinophils Absolute Auto 3.1 X10*3/uL (0.0-0.4); Eosinophils Percent Auto 31.9 % (0-4); Hematocrit 34.6 % (37.0-47.0); Imm Gran Abs Auto 0.07 X10*3/uL (0.00-0.03); Imm Gran Pct Auto 0.7 % (0.0-0.4); Lymphocytes Absolute Auto 1.8 X10*3/uL (1.2-4.9); Lymphocytes Percent Auto 18.3 % (20-40); MANUAL DIFF FLAG SCAN; Mean Corpuscular HGB Conc 31.8 g/dl (31.0-35.0); Mean Corpuscular Hemoglobin 29.3 pg (27.0-33.0); Mean Corpuscular Volume 92.3 fL (80.0-98.0); Mean Platelet Volume 9.2 fL (9.4-12.3); Monocytes Absolute Auto 0.6 X10*3/uL (0.1-1.2); Monocytes Percent Auto 5.7 % (2-11); Neutrophils Absolute Auto 4.2 x10*3/uL (2.0-8.3); Neutrophils Percent Auto 42.8 % (45-73); Platelet Count 339 X10*3/uL (160-400); Red Blood Count 3.75 X10*6/uL (4.20-5.50); Red Cell Distribution Width 13.9 % (11.0-16.0); SCAN SMEAR FLAG 1; White Blood Count 9.8 X10*3/uL (4.8-10.8)
[2021-12-24 06:31] LABS: SLIDE REVIEW VERIFIED
[2021-12-24 06:54] LABS: Alanine Aminotransferase 393 U/L (0-31); Albumin Level 2.9 g/dL (3.5-5.0); Alkaline Phosphatase 270 U/L (39-117); Anion Gap 12 (12-20); Aspartate Amino Transferase 289 U/L (5-31); Bilirubin Total 1.3 mg/dL (0.0-1.0); Blood Urea Nitrogen 9 mg/dL (9-16); Calcium 8.4 mg/dL (8.4-10.2); Carbon Dioxide 22 mmol/L (22-29); Chloride 112 mmol/L (96-108); Creatinine Clr Calc Pharmacy 75.7; Estimated Glomerular Filt Rate > 60; Glucose Fasting 95 mg/dL (60-99); Potassium 3.6 mmol/L (3.3-5.1); Sodium 142 mmol/L (135-145); Total Protein 5.3 g/dL (6.5-8.0)
[2021-12-24 07:24] VITALS: BP 107/61; PULSE 76; RESP 18; TEMP 36.1; O2SAT 92
[2021-12-24] MEDS: lamoTRIgine 25 MG TABLET 150 MG PO ×2 (08:49→20:33)
[2021-12-24] MEDS: ARIPiprazole 5 MG TABLET 2.5 MG PO (08:49)
[2021-12-24] MEDS: Famotidine 20 MG TABLET 40 MG PO (08:50)
[2021-12-24] MEDS: Escitalopram Oxalate 10 MG TABLET PO (08:50)
[2021-12-24] MEDS: gemfibroziL 600 MG TABLET PO ×2 (08:50→20:33)
[2021-12-24] MEDS: Loratadine 10 MG TABLET PO (08:50)
[2021-12-24] MEDS: 0.9 % Sodium Chloride Flush 3 ML SYRINGE IVFLUSH ×3 (09:01→20:33)
[2021-12-24 11:27] VITALS: BP 105/61; PULSE 80; RESP 18; TEMP 36.4; O2SAT 95
--- NOTE | 2021-12-24 13:08 | P.PNIM_ITS ---
Subjective Subjective Date of Service: 12/24/21 Interval History: No acute issues overnight. Taking p.o. was without issue Review of Systems Unable secondary to dementia Physical Exam Vital Signs: Vital Signs: Last Vital Signs Temp 97.6 F 12/24/21 11:27 Pulse 80 12/24/21 11:27 Resp 18 12/24/21 11:27 BP 105/61 12/24/21 11:27 Pulse Ox 95 12/24/21 11:27 BMI result Body Mass Index 30.4 Const: Other: awake alert no acute distress Resp: Other: diminished left base with fine crackles noted Cardio: Other: no S4; positive S1-S2; no S3 murmurs rubs gallops GI: Other: soft nontender nondistended. Normoactive bowel sounds x4 quadrants Neuro: Other: (see patient known to me) moves all extremity with with equal power. . . At baseline Extrem: Other: no edema bilaterally Objective Data Active Medications Aripiprazole (Aripiprazole 5 Mg Tablet) 2.5 mg PO DAILY [facility] Last Admin: 12/24/21 08:49 Dose: 2.5 mg Documented by: VALERY Calcium Carbonate (Calcium Carbonate 500 Mg Tablet) 500 mg PO Q8H PRN PRN Reason: Heartburn Enoxaparin Sodium (Enoxaparin Sodium 40 Mg/0.4 Ml Syringe) 40 mg SUBCUT Q24H [facility] Last Admin: 12/23/21 16:00 Dose: 40 mg Documented by: ADAL Escitalopram Oxalate (Escitalopram Oxalate 10 Mg Tablet) 10 mg PO DAILY [facility] Last Admin: 12/24/21 08:50 Dose: 10 mg Documented by: VALERY Famotidine (Famotidine 20 Mg Tablet) 40 mg PO DAILY [facility] Last Admin: 12/24/21 08:50 Dose: 40 mg Documented by: VALERY Gemfibrozil (Gemfibrozil 600 Mg Tablet) 600 mg PO BID [facility] Last Admin: 12/24/21 08:50 Dose: 600 mg Documented by: VALERY Piperacillin Sod/Tazobactam (Sod 4.5 gm/ Sodium Chloride) 100 mls @ 200 mls/hr IV Q6H [facility] Last Infusion: 12/24/21 06:25 Dose: 0 mls/hr Documented by: HO.CASTILM Vancomycin HCl 750 mg/ Sodium (Chloride) 265 mls @ 265 mls/hr IV Q12H [facility] Last Infusion: 12/24/21 05:52 Dose: 0 mls/hr Documented by: VIKI Lamotrigine (Lamotrigine 25 Mg Tablet) 150 mg PO BID [facility] Last Admin: 12/24/21 08:49 Dose: 150 mg Documented by: VALERY Loperamide HCl (Loperamide Hcl 2 Mg Capsule) 2 mg PO Q6H PRN PRN Reason: Diarrhea Loratadine (Loratadine 10 Mg Tablet) 10 mg PO DAILY [facility] Last Admin: 12/24/21 08:50 Dose: 10 mg Documented by: VALERY Pharmacy Consult (Consult Rx Vancomycin Dosing) 1 each MISCELLANE DAILY PRN PRN Reason: Consult order Senna (Sennosides 8.6 Mg Tablet) 8.6 mg PO Q24H PRN PRN Reason: Constipation Sodium Chloride (Sodium Chloride 0.65 % Nasal 44 Ml Sprbtl) 1 spray NOSTRIL-B Q8H PRN PRN Reason: Nasal Congestion Sodium Chloride (0.9 % Sodium Chloride Flush 3 Ml Syringe) 3 ml IVFLUSH QSHIFT [facility] Last Admin: 12/24/21 09:01 Dose: 3 ml Documented by: VALERY Labs CBC & Chem 7: 12/24/21 05:37 12/24/21 05:37 Labs: Laboratory Results - last 24 hr 12/24/21 12/24/21 05:37 05:37 MCV 92.3 MCH 29.3 MCHC 31.8 RDW 13.9 Plt Count 339 MPV 9.2 L Immature Gran % (Auto) 0.7 H Neut % (Auto) 42.8 L Lymph % (Auto) 18.3 L [place] % (Auto) 5.7 Eos % (Auto) 31.9 H Baso % (Auto) 0.6 Lymph # (Auto) 1.8 [place] # (Auto) 0.6 Eos # (Auto) 3.1 H Baso # (Auto) 0.1 Abs Immat Gran (auto) 0.07 H Absolute Neuts (auto) 4.2 Absolute Nucleated RBC 0.000 Nucleated RBC % (auto) 0.0 Smear Tech's Comments VERIFIED Anion Gap 12 Estim Creat Clear Calc 75.7 Estimated GFR > 60 Fasting Glucose 95 Calcium 8.4 Total Bilirubin 1.3 H AST 289 H ALT 393 H Alkaline Phosphatase 270 H D Total Protein 5.3 L Albumin 2.9 L Microbiology Microbiology Results: Microbiology 12/22/21 10:27 Blood Culture - Preliminary Blood - Venous No growth after 48 hours. 12/22/21 11:35 Blood Culture - Preliminary Blood - Venous No growth after 24 hours. Assessment and Plan (1) Pneumonia: Status: Acute (2) Abnormal LFTs: Status: Acute Plan 61-year-old female with multiple medical problems including dementia, traumatic brain injury with known gallstones, who was [facility] from the [facility] because of altered mental status changes.ER workup revealed left base infiltrate. CT scan suspicious fo Chlecystitis ; seen by surgery. Advised conservative management 1. Left base pneumonia(HAP) -Vanco/zosyn(3) - titrate O2/prn nebs - supplemental IVFs 2. Transaminitis -likely D/T stone...verified by US. Exam benign. Check HIDA -trend LFT's in am 3.TBI/dementia -continue outpatient therapies. -adjust as indicated. Lovenox Full code Will require 1 additional midnight to fully evaluate abnormal LFTs with HIDA scan Quality Stroke Does the patient have a stroke diagnosis?: No VTE Prior VTE?: No VTE Risk Level:: Medical - moderate - high VTE Device Contraindication: Treatment Not Indicated VTE Drug Contraindication: N/A - Med Ordered
[2021-12-24 15:21] LABS: Creatinine Clr Calc Pharmacy 76.7; Estimated Glomerular Filt Rate > 60
[2021-12-24 15:27] LABS: Vancomycin Trough 8.2 mcg/mL (10.0-20.0)
--- NOTE | 2021-12-24 15:45 | HE.PHANOTE ---
Patients trough low and predicted AUC is 326, change dose to 1000 mg q12, predicted auc is 435 and trough 8.9
[2021-12-24 16:00] VITALS: BP 96/52; PULSE 83; RESP 20; TEMP 36.9; O2SAT 97
[2021-12-24] MEDS: vancomycin HCL 1,000 MG in 0.9 % Sodium Chloride 250 ML 270 MG IV (16:45)
[2021-12-24] MEDS: Enoxaparin Sodium 40 MG/0.4 ML SYRINGE SUBCUT (16:45)
[2021-12-24 19:55] VITALS: BP 108/53; PULSE 92; RESP 18; TEMP 38.2; O2SAT 96
[2021-12-24 23:55] VITALS: BP 114/55; PULSE 90; RESP 14; TEMP 37.1; O2SAT 92
[2021-12-25] MEDS: Piperacillin Sodium/Tazobactam 4.5 GM in 0.9 % Sodium Chloride 100 ML IV ×5 (00:05→23:37)
[2021-12-25 03:45] VITALS: BP 96/49; PULSE 83; RESP 16; TEMP 36.9; O2SAT 91
[2021-12-25] MEDS: vancomycin HCL 1,000 MG in 0.9 % Sodium Chloride 250 ML 270 MG IV ×2 (04:38→16:18)
[2021-12-25 06:06] LABS: Basophils Absolute Auto 0.1 X10*3/uL (0.0-0.2); Basophils Percent Auto 0.6 % (0-2); Eosinophils Absolute Auto 2.8 X10*3/uL (0.0-0.4); Eosinophils Percent Auto 27.9 % (0-4); Hematocrit 34.3 % (37.0-47.0); Imm Gran Abs Auto 0.08 X10*3/uL (0.00-0.03); Imm Gran Pct Auto 0.8 % (0.0-0.4); Lymphocytes Percent Auto 19.4 % (20-40); MANUAL DIFF FLAG SCAN; Mean Corpuscular HGB Conc 32.1 g/dl (31.0-35.0); Mean Corpuscular Hemoglobin 29.3 pg (27.0-33.0); Mean Corpuscular Volume 91.2 fL (80.0-98.0); Mean Platelet Volume 9.2 fL (9.4-12.3); Monocytes Absolute Auto 0.7 X10*3/uL (0.1-1.2); Monocytes Percent Auto 6.6 % (2-11); Neutrophils Absolute Auto 4.5 x10*3/uL (2.0-8.3); Neutrophils Percent Auto 44.7 % (45-73); Platelet Count 329 X10*3/uL (160-400); Red Blood Count 3.76 X10*6/uL (4.20-5.50); Red Cell Distribution Width 14.2 % (11.0-16.0); SCAN SMEAR FLAG 1; White Blood Count 10.1 X10*3/uL (4.8-10.8)
[2021-12-25 06:26] LABS: SLIDE REVIEW VERIFIED
[2021-12-25 06:31] LABS: Alanine Aminotransferase 409 U/L (0-31); Albumin Level 2.9 g/dL (3.5-5.0); Alkaline Phosphatase 352 U/L (39-117); Anion Gap 13 (12-20); Aspartate Amino Transferase 300 U/L (5-31); Bilirubin Total 1.4 mg/dL (0.0-1.0); Blood Urea Nitrogen 10 mg/dL (9-16); Calcium 8.3 mg/dL (8.4-10.2); Carbon Dioxide 22 mmol/L (22-29); Chloride 112 mmol/L (96-108); Creatinine Clr Calc Pharmacy 79.8; Estimated Glomerular Filt Rate > 60; Glucose Fasting 106 mg/dL (60-99); Potassium 3.7 mmol/L (3.3-5.1); Sodium 143 mmol/L (135-145); Total Protein 5.2 g/dL (6.5-8.0)
--- NOTE | 2021-12-25 07:31 | HE.PHANOTE ---
VANCOMYCIN ADDENDUM: DOSE WAS INCREASED TO 1 GRAM Q12 HOURS, YESTERDAY, NEW LEVEL DUE TODAY AT 1500, SCR HAS REMAINED STEADY, ANTICIPATED AUC ON THIS DOSE 415, KEEP SAME REGIMEN
[2021-12-25 07:32] VITALS: BP 117/53; PULSE 89; RESP 15; TEMP 36.4; O2SAT 95
[2021-12-25 11:13] VITALS: BP 108/54; PULSE 81; RESP 17; TEMP 36.9; O2SAT 95
[2021-12-25] MEDS: Famotidine 20 MG TABLET 40 MG PO (11:16)
[2021-12-25] MEDS: Loratadine 10 MG TABLET PO (11:16)
[2021-12-25] MEDS: 0.9 % Sodium Chloride Flush 3 ML SYRINGE IVFLUSH ×3 (11:17→23:37)
[2021-12-25] MEDS: gemfibroziL 600 MG TABLET PO ×2 (11:17→21:49)
[2021-12-25] MEDS: ARIPiprazole 5 MG TABLET 2.5 MG PO (11:17)
[2021-12-25] MEDS: Escitalopram Oxalate 10 MG TABLET PO (11:17)
--- NOTE | 2021-12-25 14:17 | HO.PM.IMPN ---
Subjective Subjective Date of Service: 12/25/21 Interval History: No acute issues overnight. Taking p.o. was without issue Review of Systems Unable secondary to dementia Physical Exam Vital Signs: Vital Signs: Last Vital Signs Temp 98.4 F 12/25/21 11:13 Pulse 81 12/25/21 11:13 Resp 17 12/25/21 11:13 BP 108/54 L 12/25/21 11:13 Pulse Ox 95 12/25/21 11:13 BMI result Body Mass Index 30.4 Const: Other: awake alert no acute distress Resp: Other: diminished left base with fine crackles noted Cardio: Other: no S4; positive S1-S2; no S3 murmurs rubs gallops GI: Other: soft nontender nondistended. Normoactive bowel sounds x4 quadrants Neuro: Other: (see patient known to me) moves all extremity with with equal power. . . At baseline Extrem: Other: no edema bilaterally Objective Data Active Medications Aripiprazole (Aripiprazole 5 Mg Tablet) 2.5 mg PO DAILY [facility] Last Admin: 12/25/21 11:17 Dose: 2.5 mg Documented by: VALERY Calcium Carbonate (Calcium Carbonate 500 Mg Tablet) 500 mg PO Q8H PRN PRN Reason: Heartburn Enoxaparin Sodium (Enoxaparin Sodium 40 Mg/0.4 Ml Syringe) 40 mg SUBCUT Q24H [facility] Last Admin: 12/24/21 16:45 Dose: 40 mg Documented by: DEA Escitalopram Oxalate (Escitalopram Oxalate 10 Mg Tablet) 10 mg PO DAILY [facility] Last Admin: 12/25/21 11:17 Dose: 10 mg Documented by: VALERY Famotidine (Famotidine 20 Mg Tablet) 40 mg PO DAILY [facility] Last Admin: 12/25/21 11:16 Dose: 40 mg Documented by: VALERY Gemfibrozil (Gemfibrozil 600 Mg Tablet) 600 mg PO BID [facility] Last Admin: 12/25/21 11:17 Dose: 600 mg Documented by: VALERY Piperacillin Sod/Tazobactam (Sod 4.5 gm/ Sodium Chloride) 100 mls @ 200 mls/hr IV Q6H [facility] Last Infusion: 12/25/21 13:50 Dose: 0 mls/hr Documented by: VALERY Vancomycin HCl 1,000 mg/ (Sodium Chloride) 270 mls @ 270 mls/hr IV Q12H [facility] Last Infusion: 12/25/21 05:39 Dose: 0 mls/hr Documented by: JOSELYN Lamotrigine (Lamotrigine 25 Mg Tablet) 150 mg PO BID [facility] Last Admin: 12/25/21 14:15 Dose: Not Given Documented by: VALERY Non-Admin Reason: Med Not Available Loperamide HCl (Loperamide Hcl 2 Mg Capsule) 2 mg PO Q6H PRN PRN Reason: Diarrhea Loratadine (Loratadine 10 Mg Tablet) 10 mg PO DAILY [facility] Last Admin: 12/25/21 11:16 Dose: 10 mg Documented by: VALERY Pharmacy Consult (Consult Rx Vancomycin Dosing) 1 each MISCELLANE DAILY PRN PRN Reason: Consult order Senna (Sennosides 8.6 Mg Tablet) 8.6 mg PO Q24H PRN PRN Reason: Constipation Sodium Chloride (Sodium Chloride 0.65 % Nasal 44 Ml Sprbtl) 1 spray NOSTRIL-B Q8H PRN PRN Reason: Nasal Congestion Sodium Chloride (0.9 % Sodium Chloride Flush 3 Ml Syringe) 3 ml IVFLUSH QSHIFT [facility] Last Admin: 12/25/21 11:17 Dose: 3 ml Documented by: VALERY Labs CBC & Chem 7: 12/25/21 05:43 12/25/21 05:43 Labs: Laboratory Results - last 24 hr 12/24/21 12/24/21 12/25/21 14:52 14:52 05:43 MCV 91.2 MCH 29.3 MCHC 32.1 RDW 14.2 Plt Count 329 MPV 9.2 L Immature Gran % (Auto) 0.8 H Neut % (Auto) 44.7 L Lymph % (Auto) 19.4 L [place] % (Auto) 6.6 Eos % (Auto) 27.9 H Baso % (Auto) 0.6 Lymph # (Auto) 2.0 [place] # (Auto) 0.7 Eos # (Auto) 2.8 H Baso # (Auto) 0.1 Abs Immat Gran (auto) 0.08 H Absolute Neuts (auto) 4.5 Absolute Nucleated RBC 0.000 Nucleated RBC % (auto) 0.0 Smear Tech's Comments VERIFIED Anion Gap Estim Creat Clear Calc 76.7 Estimated GFR > 60 Fasting Glucose Calcium Total Bilirubin AST ALT Alkaline Phosphatase Total Protein Albumin Vancomycin Trough 8.2 L 12/25/21 05:43 MCV MCH MCHC RDW Plt Count MPV Immature Gran % (Auto) Neut % (Auto) Lymph % (Auto) [place] % (Auto) Eos % (Auto) Baso % (Auto) Lymph # (Auto) [place] # (Auto) Eos # (Auto) Baso # (Auto) Abs Immat Gran (auto) Absolute Neuts (auto) Absolute Nucleated RBC Nucleated RBC % (auto) Smear Tech's Comments Anion Gap 13 Estim Creat Clear Calc 79.8 Estimated GFR > 60 Fasting Glucose 106 H Calcium 8.3 L Total Bilirubin 1.4 H AST 300 H ALT 409 H Alkaline Phosphatase 352 H D Total Protein 5.2 L Albumin 2.9 L Vancomycin Trough Microbiology Microbiology Results: Microbiology 12/22/21 11:35 Blood Culture - Preliminary Blood - Venous No growth after 48 hours. 12/22/21 10:27 Blood Culture - Preliminary Blood - Venous No growth after 48 hours. Assessment and Plan (1) Pneumonia: Status: Acute (2) Abnormal LFTs: Status: Acute (3) Traumatic brain injury: Status: Acute Plan 61-year-old female with multiple medical problems including dementia, traumatic brain injury with known gallstones, who was [facility] because of altered mental status changes.ER workup revealed left base infiltrate. CT scan suspicious fo Chlecystitis ; seen by surgery. Advised conservative management 1. Left base pneumonia(HAP) -Vanco/zosyn(4) - titrate O2/prn nebs - supplemental IVFs 2. Transaminitis -likely D/T stone...verified by US. Exam benign. Check HIDA; await results -trend LFT's in am 3.TBI/dementia -continue outpatient therapies. -adjust as indicated. Lovenox Full code Will require 1- 2 additional midnights to fully evaluate HIDA scan Quality Stroke Does the patient have a stroke diagnosis?: No VTE Prior VTE?: No VTE Risk Level:: Medical - moderate - high VTE Device Contraindication: Treatment Not Indicated VTE Drug Contraindication: N/A - Med Ordered
[2021-12-25 15:25] LABS: Vancomycin Trough 12.9 mcg/mL (10.0-20.0)
--- NOTE | 2021-12-25 15:48 | P.CNGI_ITS ---
History of Present Illness Data of Consult Service Date: 12/25/21 Requesting physician: Christian Hicks Primary Care Provider: Christian Hicks DO HPI Reason for consult: abn LFT 61-year-old female w/ TBI, dementia, OCD and dysphasia who I am seeing for abn LFT> Limied hx from patient due to mental healh issues, and dysphasia Patient was admitted with altered mental status. She had worsening of speech from baseline with unsteadiness. Extensive imaging doen revealing leftl lower lobe infiltrate as well as gallstones. LFT were abnormal and have been uptrending. She was commenced on anibiotics with zosyn and vanco coverage Review of Systems Review of Systems: Yes Unobtainable due to mental status PMFSH Past Medical History Medical History Aphasia Chondrocostal junction syndrome Delusional disorder Dementia Disruptive mood dysregulation disorder Gallstones GERD (gastroesophageal reflux disease) Hx of migraine headaches Hyperlipidemia Myopia Obsessive compulsive disorder Raynauds syndrome Traumatic brain injury Family History Family History Maternal Grandmother Breast cancer Social History Social History Household Members: None Housing: Long-Term Do you presently have visiting nurse or other home services: No Unable to assess alcohol history related to: Unknown Patient Tobacco Use Status: Never used Tobacco e-Cigarette/Vaping Use: Never Used Advance Directives Date on File: 12/03/21 service: No Current occupational status: disabled Meds Allergies Allergy/AdvReac Type Severity Reaction Status Date / Time No Known Allergies Allergy Verified 12/23/21 17:09 Active Medications: Current Medications Aripiprazole (Aripiprazole 5 Mg Tablet) 2.5 mg PO DAILY [facility] Last Admin: 12/25/21 11:17 Dose: 2.5 mg Documented by: Calcium Carbonate (Calcium Carbonate 500 Mg Tablet) 500 mg PO Q8H PRN PRN Reason: Heartburn Enoxaparin Sodium (Enoxaparin Sodium 40 Mg/0.4 Ml Syringe) 40 mg SUBCUT Q24H [facility] Last Admin: 12/24/21 16:45 Dose: 40 mg Documented by: Escitalopram Oxalate (Escitalopram Oxalate 10 Mg Tablet) 10 mg PO DAILY [facility] Last Admin: 12/25/21 11:17 Dose: 10 mg Documented by: Famotidine (Famotidine 20 Mg Tablet) 40 mg PO DAILY [facility] Last Admin: 12/25/21 11:16 Dose: 40 mg Documented by: Gemfibrozil (Gemfibrozil 600 Mg Tablet) 600 mg PO BID [facility] Last Admin: 12/25/21 11:17 Dose: 600 mg Documented by: Piperacillin Sod/Tazobactam (Sod 4.5 gm/ Sodium Chloride) 100 mls @ 200 mls/hr IV Q6H [facility] Last Infusion: 12/25/21 13:50 Dose: Infused Documented by: Vancomycin HCl 1,000 mg/ (Sodium Chloride) 270 mls @ 270 mls/hr IV Q12H [facility] Last Infusion: 12/25/21 05:39 Dose: Infused Documented by: Lamotrigine (Lamotrigine 25 Mg Tablet) 150 mg PO BID [facility] Last Admin: 12/25/21 14:15 Dose: Not Given Documented by: Loperamide HCl (Loperamide Hcl 2 Mg Capsule) 2 mg PO Q6H PRN PRN Reason: Diarrhea Loratadine (Loratadine 10 Mg Tablet) 10 mg PO DAILY [facility] Last Admin: 12/25/21 11:16 Dose: 10 mg Documented by: Pharmacy Consult (Consult Rx Vancomycin Dosing) 1 each MISCELLANE DAILY PRN PRN Reason: Consult order Senna (Sennosides 8.6 Mg Tablet) 8.6 mg PO Q24H PRN PRN Reason: Constipation Sodium Chloride (Sodium Chloride 0.65 % Nasal 44 Ml Sprbtl) 1 spray NOSTRIL-B Q8H PRN PRN Reason: Nasal Congestion Sodium Chloride (0.9 % Sodium Chloride Flush 3 Ml Syringe) 3 ml IVFLUSH QSHIFT [facility] Last Admin: 12/25/21 11:17 Dose: 3 ml Documented by: Home Medications Medication Instructions Recorded Confirmed Last Taken Type acetaminophen 325 mg tablet 650 mg PO Q6H PRN 03/17/21 12/22/21 Unknown History famotidine 40 mg tablet 40 mg PO DAILY 03/17/21 12/22/21 Unknown History gemfibrozil 600 mg tablet 600 mg PO BID 03/17/21 12/22/21 Unknown History ibuprofen 600 mg tablet 600 mg PO Q8H PRN 03/17/21 12/22/21 Unknown History loperamide 2 mg capsule 2 mg PO Q6H PRN 03/17/21 12/22/21 Unknown History omeprazole 20 mg capsule,delayed 20 mg PO DAILY 03/17/21 12/22/21 Unknown History release sennosides 8.6 mg tablet (Natural 8.6 mg PO Q24H PRN 03/17/21 12/22/21 Unknown History Senna Laxative) sodium chloride 0.65 % nasal spray 1 spray INTRANASAL Q8H PRN 03/17/21 12/22/21 Unknown History aerosol ([place] Nasal) aripiprazole 5 mg tablet (Abilify) 2.5 mg PO DAILY 12/22/21 12/22/21 Unknown History calcium carbonate 500 mg calcium 500 mg PO Q8H PRN 12/22/21 12/22/21 Unknown History (1,250 mg) chewable tablet cetirizine 10 mg tablet 10 mg PO DAILY 12/22/21 12/22/21 Unknown History citalopram 20 mg tablet 20 mg PO DAILY 12/22/21 12/22/21 Unknown History clozapine 100 mg tablet (Clozaril) 100 mg PO BEDTIME 12/22/21 12/22/21 Unknown History lamotrigine 150 mg tablet 150 mg PO BID 12/22/21 12/22/21 Unknown History oxycodone-acetaminophen 5 mg-325 1 tab PO Q4H PRN 12/22/21 12/22/21 Unknown History mg tablet Physical Exam Vital Signs: Vital Signs: Last Vital Signs Temp 98.4 F 12/25/21 11:13 Pulse 81 12/25/21 11:13 Resp 17 12/25/21 11:13 BP 108/54 L 12/25/21 11:13 Pulse Ox 95 12/25/21 11:13 BMI result Body Mass Index 30.4 EXAM: GENERAL: The patient is relaxed, expressive dysphasia VITAL SIGNS:see workflow HEENT: Nonicteric sclerae, PERRLA, EOMI. Oropharynx clear. Moist mucous membranes. Conjunctivae appear well perfused. No thyroid mass. CHEST: Chest wall is nontender. HEART: Regular rate and rhythm without murmurs. LUNGS: Clear to auscultation bilaterally. ABDOMEN: Soft, positive bowel sounds, nontender, no organomegaly.no flank tenderness SKIN: No rash, no excessive bruising, petechiae, or purpura. NEUROLOGIC: Cranial nerves II-XII intact without motor/sensory deficit. Psych: Speech and movement: Slurred speech present Affect: normal affect Attitude: cooperative Results Labs CBC & Chem 7: 12/25/21 05:43 12/25/21 05:43 Labs: Short CBC 12/25/21 Range/Units 05:43 WBC 10.1 (4.8-10.8) X10*3/uL Hgb 11.0 L (12.0-16.0) g/dl Hct 34.3 L (37.0-47.0) % Plt Count 329 (160-400) X10*3/uL BMP 12/25/21 05:43 Sodium 143 Potassium 3.7 Chloride 112 H Carbon Dioxide 22 BUN 10 Creatinine 0.74 Calcium 8.3 L Liver Function 12/25/21 Range/Units 05:43 Total Bilirubin 1.4 H (0.0-1.0) mg/dL AST 300 H (5-31) U/L ALT 409 H (0-31) U/L Alkaline Phosphatase 352 H D (39-117) U/L Albumin 2.9 L (3.5-5.0) g/dL Microbiology Microbiology Results: Microbiology 12/22/21 11:35 Blood - Venous Blood Culture - Preliminary No growth after 48 hours. 12/22/21 10:27 Blood - Venous Blood Culture - Preliminary No growth after 48 hours. Assessment and Plan (1) Abnormal LFTs: Status: Acute (2) Pneumonia: Status: Acute (3) Gallstones: Status: Acute Plan 1/ Abn LFT< may be due to DILI, bacterial pneumonia or cystic kehinde obstruction aixa as GB was noted to be distended. ' PLAN: 1/ HIDA scan--if neg then switch zosyn to alernative medication, and expand liver work up with other serolgies and infectious etiologies. Procedures Date of Service Date of Service: 12/25/21
[2021-12-25 16:00] VITALS: BP 153/59; PULSE 79; RESP 20; TEMP 37.8; O2SAT 98
[2021-12-25] MEDS: Enoxaparin Sodium 40 MG/0.4 ML SYRINGE SUBCUT (16:18)
[2021-12-25 20:00] VITALS: BP 131/58; PULSE 89; RESP 18; TEMP 36.9; O2SAT 94
[2021-12-25] MEDS: lamoTRIgine 25 MG TABLET 150 MG PO (21:50)
[2021-12-25 23:10] VITALS: BP 104/54; PULSE 93; RESP 18; TEMP 36.8; O2SAT 93
[2021-12-26 03:54] VITALS: BP 104/62; PULSE 74; RESP 16; TEMP 36.4; O2SAT 94
[2021-12-26] MEDS: Piperacillin Sodium/Tazobactam 4.5 GM in 0.9 % Sodium Chloride 100 ML IV ×3 (05:51→18:24)
[2021-12-26] MEDS: vancomycin HCL 1,000 MG in 0.9 % Sodium Chloride 250 ML 270 MG IV ×2 (06:28→17:14)
[2021-12-26] MEDS: ARIPiprazole 5 MG TABLET 2.5 MG PO (07:43)
[2021-12-26] MEDS: Escitalopram Oxalate 10 MG TABLET PO (07:43)
[2021-12-26] MEDS: lamoTRIgine 25 MG TABLET 150 MG PO ×2 (07:43→20:39)
[2021-12-26] MEDS: 0.9 % Sodium Chloride Flush 3 ML SYRINGE IVFLUSH ×3 (07:43→20:39)
[2021-12-26 07:46] VITALS: BP 137/60; PULSE 78; RESP 20; TEMP 36.3; O2SAT 98
[2021-12-26 08:20] LABS: Anion Gap 14 (12-20); Blood Urea Nitrogen 11 mg/dL (9-16); Calcium 8.6 mg/dL (8.4-10.2); Carbon Dioxide 23 mmol/L (22-29); Chloride 112 mmol/L (96-108); Creatinine Clr Calc Pharmacy 69.4; Estimated Glomerular Filt Rate > 60; Glucose Random 100 mg/dL (60-115); Potassium 3.7 mmol/L (3.3-5.1); Sodium 145 mmol/L (135-145)
[2021-12-26 09:36] LABS: Alanine Aminotransferase 424 U/L (0-31); Albumin Level 2.9 g/dL (3.5-5.0); Alkaline Phosphatase 352 U/L (39-117); Aspartate Amino Transferase 341 U/L (5-31); Bilirubin Direct 0.9 mg/dL (0.0-0.5); Bilirubin Total 1.4 mg/dL (0.0-1.0); Total Protein 5.3 g/dL (6.5-8.0)
--- NOTE | 2021-12-26 11:45 | HO.PM.IMPN ---
Subjective Subjective Date of Service: 12/26/21 Interval History: No acute issues overnight. NPO for MRCP Review of Systems Unable secondary to dementia Physical Exam Vital Signs: Vital Signs: Last Vital Signs Temp 97.3 F 12/26/21 07:46 Pulse 78 12/26/21 07:46 Resp 20 12/26/21 07:46 BP 137/60 12/26/21 07:46 Pulse Ox 98 12/26/21 07:46 BMI result Body Mass Index 30.4 Const: Other: awake alert no acute distress Resp: Other: diminished left base with fine crackles noted Cardio: Other: no S4; positive S1-S2; no S3 murmurs rubs gallops GI: Other: soft nontender nondistended. Normoactive bowel sounds x4 quadrants Neuro: Other: (see patient known to me) moves all extremity with with equal power. . . At baseline Extrem: Other: no edema bilaterally Objective Data Active Medications Aripiprazole (Aripiprazole 5 Mg Tablet) 2.5 mg PO DAILY [facility] Last Admin: 12/26/21 07:43 Dose: 2.5 mg Documented by: SAMIR Calcium Carbonate (Calcium Carbonate 500 Mg Tablet) 500 mg PO Q8H PRN PRN Reason: Heartburn Enoxaparin Sodium (Enoxaparin Sodium 40 Mg/0.4 Ml Syringe) 40 mg SUBCUT Q24H [facility] Last Admin: 12/25/21 16:18 Dose: 40 mg Documented by: DEA Escitalopram Oxalate (Escitalopram Oxalate 10 Mg Tablet) 10 mg PO DAILY [facility] Last Admin: 12/26/21 07:43 Dose: 10 mg Documented by: SAMIR Famotidine (Famotidine 20 Mg Tablet) 40 mg PO DAILY [facility] Last Admin: 12/26/21 07:37 Dose: Not Given Documented by: MACKENZIEEMA Non-Admin Reason: NPO Gemfibrozil (Gemfibrozil 600 Mg Tablet) 600 mg PO BID [facility] Last Admin: 12/26/21 07:37 Dose: Not Given Documented by: COTEMA Non-Admin Reason: NPO Piperacillin Sod/Tazobactam (Sod 4.5 gm/ Sodium Chloride) 100 mls @ 200 mls/hr IV Q6H [facility] Last Infusion: 12/26/21 06:34 Dose: 0 mls/hr Documented by: RHINA Vancomycin HCl 1,000 mg/ (Sodium Chloride) 270 mls @ 270 mls/hr IV Q12H [facility] Last Infusion: 12/26/21 07:44 Dose: 0 mls/hr Documented by: SAMIR Lamotrigine (Lamotrigine 25 Mg Tablet) 150 mg PO BID [facility] Last Admin: 12/26/21 07:43 Dose: 150 mg Documented by: SAMIR Loperamide HCl (Loperamide Hcl 2 Mg Capsule) 2 mg PO Q6H PRN PRN Reason: Diarrhea Loratadine (Loratadine 10 Mg Tablet) 10 mg PO DAILY [facility] Last Admin: 12/26/21 07:39 Dose: Not Given Documented by: SAMIR Non-Admin Reason: NPO Pharmacy Consult (Consult Rx Vancomycin Dosing) 1 each MISCELLANE DAILY PRN PRN Reason: Consult order Senna (Sennosides 8.6 Mg Tablet) 8.6 mg PO Q24H PRN PRN Reason: Constipation Sodium Chloride (Sodium Chloride 0.65 % Nasal 44 Ml Sprbtl) 1 spray NOSTRIL-B Q8H PRN PRN Reason: Nasal Congestion Sodium Chloride (0.9 % Sodium Chloride Flush 3 Ml Syringe) 3 ml IVFLUSH QSHIFT [facility] Last Admin: 12/26/21 07:43 Dose: 3 ml Documented by: SAMIR Labs CBC & Chem 7: 12/25/21 05:43 12/26/21 07:14 Labs: Laboratory Results - last 24 hr 12/25/21 12/26/21 14:59 07:14 Anion Gap 14 Estim Creat Clear Calc 69.4 Estimated GFR > 60 Random Glucose 100 Calcium 8.6 Total Bilirubin 1.4 H Direct Bilirubin 0.9 H AST 341 H ALT 424 H Alkaline Phosphatase 352 H Total Protein 5.3 L Albumin 2.9 L Vancomycin Trough 12.9 Assessment and Plan (1) Pneumonia: Status: Acute (2) Abnormal LFTs: Status: Acute (3) Traumatic brain injury: Status: Acute Plan 61-year-old female with multiple medical problems including dementia, traumatic brain injury with known gallstones, who [facility] because of altered mental status changes.ER workup revealed left base infiltrate. CT scan suspicious fo Chlecystitis ; seen by surgery. Advised conservative management 1. Left base pneumonia(HAP) -Vanco/zosyn(5) - titrate O2/prn nebs - supplemental IVFs 2. Transaminitis -blocked cystic duct @5hrs by HIDA -MRCP this am -trend LFT's in am 3.TBI/dementia -continue outpatient therapies. -adjust as indicated. Lovenox Full code Will require 1- 2 additional midnights to fully evaluate cholestatic LFTs Quality Stroke Does the patient have a stroke diagnosis?: No VTE Prior VTE?: No VTE Risk Level:: Medical - moderate - high VTE Device Contraindication: Treatment Not Indicated VTE Drug Contraindication: N/A - Med Ordered
[2021-12-26 11:48] VITALS: BP 118/77; PULSE 57; RESP 20; TEMP 36.2; O2SAT 97
[2021-12-26 15:07] VITALS: BP 105/63; PULSE 70; RESP 16; TEMP 37; O2SAT 94
[2021-12-26] MEDS: Enoxaparin Sodium 40 MG/0.4 ML SYRINGE SUBCUT (15:37)
[2021-12-26 16:04] LABS: Vancomycin Trough 15.1 mcg/mL (10.0-20.0)
[2021-12-26 19:11] VITALS: BP 94/48; PULSE 93; RESP 14; TEMP 37; O2SAT 94
[2021-12-26] MEDS: gemfibroziL 600 MG TABLET PO (20:39)
[2021-12-26 23:57] VITALS: BP 108/64; PULSE 97; RESP 16; TEMP 36.9; O2SAT 93
[2021-12-27] MEDS: Piperacillin Sodium/Tazobactam 4.5 GM in 0.9 % Sodium Chloride 100 ML IV ×5 (00:07→23:07)
[2021-12-27 03:45] VITALS: RESP 16
[2021-12-27 06:26] LABS: Anion Gap 12 (12-20); Blood Urea Nitrogen 13 mg/dL (9-16); Calcium 8.6 mg/dL (8.4-10.2); Carbon Dioxide 22 mmol/L (22-29); Chloride 114 mmol/L (96-108); Creatinine Clr Calc Pharmacy 74.7; Estimated Glomerular Filt Rate > 60; Glucose Random 146 mg/dL (60-115); Potassium 3.3 mmol/L (3.3-5.1); Sodium 145 mmol/L (135-145)
[2021-12-27] MEDS: vancomycin HCL 1,000 MG in 0.9 % Sodium Chloride 250 ML 270 MG IV ×2 (06:29→16:44)
--- NOTE | 2021-12-27 06:43 | HE.PHANOTE ---
RE Vancomycin Patient SCr today dropped to 0.79. Continue 1 gram q12h and evaluate dose based on next trough: 12/27 @1500
[2021-12-27] MEDS: 0.9 % Sodium Chloride Flush 3 ML SYRINGE IVFLUSH ×3 (07:35→20:29)
[2021-12-27] MEDS: Famotidine 20 MG TABLET 40 MG PO (07:36)
[2021-12-27] MEDS: gemfibroziL 600 MG TABLET PO ×2 (07:36→20:24)
[2021-12-27] MEDS: ARIPiprazole 5 MG TABLET 2.5 MG PO (07:36)
[2021-12-27] MEDS: Escitalopram Oxalate 10 MG TABLET PO (07:37)
[2021-12-27] MEDS: lamoTRIgine 25 MG TABLET 150 MG PO ×2 (07:37→20:24)
[2021-12-27] MEDS: Loratadine 10 MG TABLET PO (07:37)
[2021-12-27 07:45] VITALS: BP 108/52; PULSE 81; RESP 20; TEMP 36.8; O2SAT 93
[2021-12-27 08:07] LABS: Alanine Aminotransferase 413 U/L (0-31); Alkaline Phosphatase 406 U/L (39-117); Aspartate Amino Transferase 328 U/L (5-31); Bilirubin Direct 0.8 mg/dL (0.0-0.5); Bilirubin Total 1.2 mg/dL (0.0-1.0); Total Protein 5.4 g/dL (6.5-8.0)
--- NOTE | 2021-12-27 09:53 | P.PNIM_ITS ---
Subjective Subjective Date of Service: 12/27/21 Interval History: No acute issues overnight. NPO for MRCP Review of Systems Unable secondary to dementia Physical Exam Vital Signs: Vital Signs: Last Vital Signs Temp 98.3 F 12/27/21 07:45 Pulse 81 12/27/21 07:45 Resp 20 12/27/21 07:45 BP 108/52 L 12/27/21 07:45 Pulse Ox 93 12/27/21 07:45 BMI result Body Mass Index 30.4 Const: Other: awake alert no acute distress Resp: Other: diminished left base with fine crackles noted Cardio: Other: no S4; positive S1-S2; no S3 murmurs rubs gallops GI: Other: soft nontender nondistended. Normoactive bowel sounds x4 quadrants Neuro: Other: (see patient known to me) moves all extremity with with equal power. . . At baseline Extrem: Other: no edema bilaterally Objective Data Active Medications Aripiprazole (Aripiprazole 5 Mg Tablet) 2.5 mg PO DAILY [facility] Last Admin: 12/27/21 07:36 Dose: 2.5 mg Documented by: COTEMA Calcium Carbonate (Calcium Carbonate 500 Mg Tablet) 500 mg PO Q8H PRN PRN Reason: Heartburn Enoxaparin Sodium (Enoxaparin Sodium 40 Mg/0.4 Ml Syringe) 40 mg SUBCUT Q24H [facility] Last Admin: 12/26/21 15:37 Dose: 40 mg Documented by: COTEMA Escitalopram Oxalate (Escitalopram Oxalate 10 Mg Tablet) 10 mg PO DAILY [facility] Last Admin: 12/27/21 07:37 Dose: 10 mg Documented by: COTEMA Famotidine (Famotidine 20 Mg Tablet) 40 mg PO DAILY [facility] Last Admin: 12/27/21 07:36 Dose: 40 mg Documented by: COTEMA Gemfibrozil (Gemfibrozil 600 Mg Tablet) 600 mg PO BID [facility] Last Admin: 12/27/21 07:36 Dose: 600 mg Documented by: COTEMA Piperacillin Sod/Tazobactam (Sod 4.5 gm/ Sodium Chloride) 100 mls @ 200 mls/hr IV Q6H [facility] Last Infusion: 12/27/21 06:23 Dose: 0 mls/hr Documented by: SANNAFA Vancomycin HCl 1,000 mg/ (Sodium Chloride) 270 mls @ 270 mls/hr IV Q12H [facility] Last Infusion: 12/27/21 07:38 Dose: 0 mls/hr Documented by: SAMIR Lamotrigine (Lamotrigine 25 Mg Tablet) 150 mg PO BID [facility] Last Admin: 12/27/21 07:37 Dose: 150 mg Documented by: SAMIR Loperamide HCl (Loperamide Hcl 2 Mg Capsule) 2 mg PO Q6H PRN PRN Reason: Diarrhea Loratadine (Loratadine 10 Mg Tablet) 10 mg PO DAILY [facility] Last Admin: 12/27/21 07:37 Dose: 10 mg Documented by: SAMIR Pharmacy Consult (Consult Rx Vancomycin Dosing) 1 each MISCELLANE DAILY PRN PRN Reason: Consult order Senna (Sennosides 8.6 Mg Tablet) 8.6 mg PO Q24H PRN PRN Reason: Constipation Sodium Chloride (Sodium Chloride 0.65 % Nasal 44 Ml Sprbtl) 1 spray NOSTRIL-B Q8H PRN PRN Reason: Nasal Congestion Sodium Chloride (0.9 % Sodium Chloride Flush 3 Ml Syringe) 3 ml IVFLUSH QSHIFT [facility] Last Admin: 12/27/21 07:35 Dose: 3 ml Documented by: SAMIR Labs CBC & Chem 7: 12/25/21 05:43 12/27/21 05:40 Labs: Laboratory Results - last 24 hr 12/26/21 12/27/21 15:06 05:40 Anion Gap 12 Estim Creat Clear Calc 74.7 Estimated GFR > 60 Random Glucose 146 H Calcium 8.6 Total Bilirubin 1.2 H Direct Bilirubin 0.8 H AST 328 H ALT 413 H Alkaline Phosphatase 406 H Total Protein 5.4 L Albumin 3.0 L Vancomycin Trough 15.1 Assessment and Plan (1) Pneumonia: Status: Acute (2) Abnormal LFTs: Status: Acute (3) Traumatic brain injury: Status: Acute Plan 61-year-old female with multiple medical problems including dementia, traumatic brain injury with known gallstones, who [facility] because of [facility] status changes.ER workup revealed left base infi ltrate. CT scan suspicious fo Chlecystitis ; seen by surgery. Advised conservative management 1. Left base pneumonia(HAP) -Vanco/zosyn(5) - titrate O2/prn nebs - supplemental IVFs 2. Transaminitis --MRCP consistant with stone in cystic duct -remains asymptomatic -trend LFT's in am; if continues to trend down...DC back to [facility] in am if surgery in agreement 3.TBI/dementia -continue outpatient therapies. -adjust as indicated. Lovenox Full code Will require 1 additional midnights to ensure downward trend of LFTs Quality Stroke Does the patient have a stroke diagnosis?: No VTE Prior VTE?: No VTE Risk Level:: Medical - moderate - high VTE Device Contraindication: Treatment Not Indicated VTE Drug Contraindication: N/A - Med Ordered
--- NOTE | 2021-12-27 09:59 | P.CONGS_ITS ---
History of Present Illness Consult details Consult date: 12/27/21 Requesting physician: Christian Hicks Narrative: 61-year-old female patient initially presenting to the emergency department from [facility] without altered mental status. She was also noted to have an unsteady gait and slurred speech. Workup in the emergency department revealed elevated liver function tests including transaminases, alkaline phosphatase, and bilirubin. Including CT abdomen and pelvis revealed an enlarged gallbladder with a gallstone in the neck of the gallbladder and a question of gallbladder wall thickening. Small amount of fluid was noted around the gallbladder as well. Ultrasound of the abdomen revealed gallstones within the gallbladder with slight wall thickening measuring 0.6 cm. There is trace pericholecystic fluid but no tenderness noted over the gallbladder. HIDA scan revealed nonvisualization of the gallbladder after 2 hours suggestive of acute cholecystitis. MRCP reveals a gallbladder with mild amount of sludge and a persistent 1 cm stone at the neck of the gallbladder. Gallbladder wall thickening had improved air to 12/20/2021. Trace pericholecystic fluid was identified but the common bile duct was normal. The patient denies abdominal pain, nausea, vomiting, fever or chills. She is currently on a regular diet and tolerating this well without increased abdominal pain. Review of Systems Review of Systems: Yes all other systems are reviewed and are negative Cardiovascular: Cardiovascular: Denies chest pain, Denies rapid heart rate and Denies irregular heart rhythm Respiratory: Respiratory: Reports no additional respiratory complaints Gastrointestinal: Gastrointestinal: Denies abdominal pain, Denies heartburn, Denies diarrhea, Denies nausea and Denies vomiting PMFSH Past Medical History Medical History Aphasia Chondrocostal junction syndrome Delusional disorder Dementia Disruptive mood dysregulation disorder Gallstones GERD (gastroesophageal reflux disease) Hx of migraine headaches Hyperlipidemia Myopia Obsessive compulsive disorder Raynauds syndrome Traumatic brain injury Family History Family History Maternal Grandmother Breast cancer Social History Social History Household Members: None Housing: Intermediate Do you presently have visiting nurse or other home services: No Unable to assess alcohol history related to: Unknown Patient Tobacco Use Status: Never used Tobacco e-Cigarette/Vaping Use: Never Used Advance Directives Date on File: 12/03/21 service: No Current occupational status: disabled Meds Allergies Allergy/AdvReac Type Severity Reaction Status Date / Time No Known Allergies Allergy Verified 12/23/21 17:09 Active Medications: Current Medications Aripiprazole (Aripiprazole 5 Mg Tablet) 2.5 mg PO DAILY [facility] Last Admin: 12/27/21 07:36 Dose: 2.5 mg Documented by: Calcium Carbonate (Calcium Carbonate 500 Mg Tablet) 500 mg PO Q8H PRN PRN Reason: Heartburn Enoxaparin Sodium (Enoxaparin Sodium 40 Mg/0.4 Ml Syringe) 40 mg SUBCUT Q24H [facility] Last Admin: 12/26/21 15:37 Dose: 40 mg Documented by: Escitalopram Oxalate (Escitalopram Oxalate 10 Mg Tablet) 10 mg PO DAILY [facility] Last Admin: 12/27/21 07:37 Dose: 10 mg Documented by: Famotidine (Famotidine 20 Mg Tablet) 40 mg PO DAILY [facility] Last Admin: 12/27/21 07:36 Dose: 40 mg Documented by: Gemfibrozil (Gemfibrozil 600 Mg Tablet) 600 mg PO BID [facility] Last Admin: 12/27/21 07:36 Dose: 600 mg Documented by: Piperacillin Sod/Tazobactam (Sod 4.5 gm/ Sodium Chloride) 100 mls @ 200 mls/hr IV Q6H [facility] Last Infusion: 12/27/21 06:23 Dose: Infused Documented by: Vancomycin HCl 1,000 mg/ (Sodium Chloride) 270 mls @ 270 mls/hr IV Q12H [facility] Last Infusion: 12/27/21 07:38 Dose: Infused Documented by: Lamotrigine (Lamotrigine 25 Mg Tablet) 150 mg PO BID [facility] Last Admin: 12/27/21 07:37 Dose: 150 mg Documented by: Loperamide HCl (Loperamide Hcl 2 Mg Capsule) 2 mg PO Q6H PRN PRN Reason: Diarrhea Loratadine (Loratadine 10 Mg Tablet) 10 mg PO DAILY [facility] Last Admin: 12/27/21 07:37 Dose: 10 mg Documented by: Pharmacy Consult (Consult Rx Vancomycin Dosing) 1 each MISCELLANE DAILY PRN PRN Reason: Consult order Senna (Sennosides 8.6 Mg Tablet) 8.6 mg PO Q24H PRN PRN Reason: Constipation Sodium Chloride (Sodium Chloride 0.65 % Nasal 44 Ml Sprbtl) 1 spray NOSTRIL-B Q8H PRN PRN Reason: Nasal Congestion Sodium Chloride (0.9 % Sodium Chloride Flush 3 Ml Syringe) [facility] Admin: 12/27/21 07:35 Dose: 3 ml Documented by: Home Medications Medication Instructions Recorded Confirmed Last Taken Type acetaminophen 325 mg tablet 650 mg PO Q6H PRN 03/17/21 12/22/21 Unknown History famotidine 40 mg tablet 40 mg PO DAILY 03/17/21 12/22/21 Unknown History gemfibrozil 600 mg tablet 600 mg PO BID 03/17/21 12/22/21 Unknown History ibuprofen 600 mg tablet 600 mg PO Q8H PRN 03/17/21 12/22/21 Unknown History loperamide 2 mg capsule 2 mg PO Q6H PRN 03/17/21 12/22/21 Unknown History omeprazole 20 mg capsule,delayed 20 mg PO DAILY 03/17/21 12/22/21 Unknown History release sennosides 8.6 mg tablet (Natural 8.6 mg PO Q24H PRN 03/17/21 12/22/21 Unknown History Senna Laxative) sodium chloride 0.65 % nasal spray 1 spray INTRANASAL Q8H PRN 03/17/21 12/22/21 Unknown History aerosol ([place] Nasal) aripiprazole 5 mg tablet (Abilify) 2.5 mg PO DAILY 12/22/21 12/22/21 Unknown History calcium carbonate 500 mg calcium 500 mg PO Q8H PRN 12/22/21 12/22/21 Unknown History (1,250 mg) chewable tablet cetirizine 10 mg tablet 10 mg PO DAILY 12/22/21 12/22/21 Unknown History citalopram 20 mg tablet 20 mg PO DAILY 12/22/21 12/22/21 Unknown History clozapine 100 mg tablet (Clozaril) 100 mg PO BEDTIME 12/22/21 12/22/21 Unknown History lamotrigine 150 mg tablet 150 mg PO BID 12/22/21 12/22/21 Unknown History oxycodone-acetaminophen 5 mg-325 1 tab PO Q4H PRN 12/22/21 12/22/21 Unknown History mg tablet Physical Exam Vital Signs: Vital Signs: Last Vital Signs Temp 98.3 F 12/27/21 07:45 Pulse 81 12/27/21 07:45 Resp 20 12/27/21 07:45 BP 108/52 L 12/27/21 07:45 Pulse Ox 93 12/27/21 07:45 BMI result Body Mass Index 30.4 Const: General: cooperative, comfortable and well developed Nutritional Appearance: well nourished Orientation/consciousness: patient oriented x3 Eyes: Sclerae: sclerae normal EOM: EOMs intact bilaterally Neck: Neck: Yes normal visual inspection Resp: Effort & Inspection: normal respiratory effort, no cough, no respiratory distress and no stridor Cardio: Jugular venous distension: no JVD GI: Inspection: Yes normal to inspection Palpation (GI): Soft to palpation, nontender, no guarding, not rigid and No hepatosplenomegaly present Percussion: Yes normal to percussion Auscultation: normal bowel sounds Skin: General skin exam: dry skin Rashes: no rashes Neuro: General: patient oriented x3 Extrem: General: Yes full ROM and Yes no clubbing, cyanosis or edema Psych: Speech and movement: Slurred speech present and Slowed speech present (Psych) Attitude: cooperative Results Labs Result diagrams: 12/25/21 05:43 12/27/21 05:40 Labs: Abnormal lab results 12/27/21 Range/Units 05:40 Chloride 114 H (96-108) mmol/L Random Glucose 146 H (60-115) mg/dL Total Bilirubin 1.2 H (0.0-1.0) mg/dL Direct Bilirubin 0.8 H (0.0-0.5) mg/dL AST 328 H (5-31) U/L ALT 413 H (0-31) U/L Alkaline Phosphatase 406 H (39-117) U/L Total Protein 5.4 L (6.5-8.0) g/dL Albumin 3.0 L (3.5-5.0) g/dL BMP 12/27/21 05:40 Sodium 145 Potassium 3.3 Chloride 114 H Carbon Dioxide 22 BUN 13 Creatinine 0.79 Calcium 8.6 Liver Function 12/27/21 Range/Units 05:40 Total Bilirubin 1.2 H (0.0-1.0) mg/dL Direct Bilirubin 0.8 H (0.0-0.5) mg/dL AST 328 H (5-31) U/L ALT 413 H (0-31) U/L Alkaline Phosphatase 406 H (39-117) U/L Albumin 3.0 L (3.5-5.0) g/dL Urine 12/22/21 Range/Units 10:52 Urine Color YELLOW Urine Appearance CLEAR Urine pH 6.0 (5.0-8.0) Ur Specific [place] >= 1.030 H (1.005-1.025) Urine Protein TRACE (NEG-TRACE) MG/DL Urine Glucose (UA) NEG (NEG) MG/DL All other labs normal. Assessment and Plan (1) Abnormal LFTs: Status: Acute (2) Acute calculous cholecystitis: Status: Acute Plan 61-year-old female with mental status changes found to have elevated liver function tests and radiologic studies indicating a thickened gallbladder with a gallstone at the neck of the gallbladder. The patient has remained asymptomatic and seems to be tolerating a regular diet without additional abdominal pain nausea, or vomiting. Discussed findings with Dr. Hicks. She currently seems asymptomatic despite the radiologic studies although the examination may be difficult due to her mental status. Will hold off on any surgical intervention unless she becomes symptomatic. Procedures Date of Service Date of Service: 12/27/21
[2021-12-27 11:57] VITALS: BP 100/51; PULSE 80; RESP 20; TEMP 37.1; O2SAT 95
[2021-12-27 15:57] VITALS: BP 103/53; PULSE 77; RESP 18; O2SAT 92
[2021-12-27 16:04] LABS: Vancomycin Trough 15.6 mcg/mL (10.0-20.0)
[2021-12-27] MEDS: Enoxaparin Sodium 40 MG/0.4 ML SYRINGE SUBCUT (16:44)
[2021-12-27 19:17] VITALS: BP 115/56; PULSE 88; RESP 18; TEMP 36.4; O2SAT 94
[2021-12-27 23:40] VITALS: BP 130/64; PULSE 88; RESP 20; TEMP 37.3; O2SAT 94
[2021-12-28 03:19] VITALS: BP 118/52; PULSE 111; RESP 19; TEMP 37.2; O2SAT 93
[2021-12-28] MEDS: Piperacillin Sodium/Tazobactam 4.5 GM in 0.9 % Sodium Chloride 100 ML IV ×4 (05:45→23:02)
[2021-12-28 06:01] LABS: Basophils Absolute Auto 0.1 X10*3/uL (0.0-0.2); Basophils Percent Auto 0.7 % (0-2); Eosinophils Absolute Auto 3.5 X10*3/uL (0.0-0.4); Eosinophils Percent Auto 29.5 % (0-4); Hematocrit 36.8 % (37.0-47.0); Hemoglobin 11.4 g/dl (12.0-16.0); Imm Gran Abs Auto 0.11 X10*3/uL (0.00-0.03); Imm Gran Pct Auto 0.9 % (0.0-0.4); Lymphocytes Absolute Auto 2.4 X10*3/uL (1.2-4.9); Lymphocytes Percent Auto 20.6 % (20-40); MANUAL DIFF FLAG SCAN; Mean Corpuscular Hemoglobin 28.8 pg (27.0-33.0); Mean Corpuscular Volume 92.9 fL (80.0-98.0); Mean Platelet Volume 9.3 fL (9.4-12.3); Monocytes Absolute Auto 0.8 X10*3/uL (0.1-1.2); Monocytes Percent Auto 6.8 % (2-11); Neutrophils Absolute Auto 4.9 x10*3/uL (2.0-8.3); Neutrophils Percent Auto 41.5 % (45-73); Platelet Count 304 X10*3/uL (160-400); Red Blood Count 3.96 X10*6/uL (4.20-5.50); SCAN SMEAR FLAG 1; White Blood Count 11.9 X10*3/uL (4.8-10.8)
[2021-12-28] MEDS: vancomycin HCL 1,000 MG in 0.9 % Sodium Chloride 250 ML 270 MG IV ×2 (06:18→16:59)
[2021-12-28 06:21] LABS: SLIDE REVIEW VERIFIED
[2021-12-28 06:24] LABS: Alanine Aminotransferase 398 U/L (0-31); Alkaline Phosphatase 407 U/L (39-117); Anion Gap 12 (12-20); Aspartate Amino Transferase 346 U/L (5-31); Bilirubin Total 1.2 mg/dL (0.0-1.0); Blood Urea Nitrogen 11 mg/dL (9-16); Calcium 8.8 mg/dL (8.4-10.2); Carbon Dioxide 25 mmol/L (22-29); Chloride 113 mmol/L (96-108); Creatinine Clr Calc Pharmacy 74.7; Estimated Glomerular Filt Rate > 60; Glucose Fasting 123 mg/dL (60-99); Potassium 3.9 mmol/L (3.3-5.1); Sodium 146 mmol/L (135-145); Total Protein 5.4 g/dL (6.5-8.0)
[2021-12-28 07:44] VITALS: BP 100/57; PULSE 71; RESP 18; TEMP 37.1; O2SAT 94
[2021-12-28] MEDS: Escitalopram Oxalate 10 MG TABLET PO (08:24)
[2021-12-28] MEDS: gemfibroziL 600 MG TABLET PO ×2 (08:24→19:22)
[2021-12-28] MEDS: Famotidine 20 MG TABLET 40 MG PO (08:24)
[2021-12-28] MEDS: Loratadine 10 MG TABLET PO (08:24)
[2021-12-28] MEDS: 0.9 % Sodium Chloride Flush 3 ML SYRINGE IVFLUSH ×3 (08:25→19:21)
[2021-12-28] MEDS: ARIPiprazole 5 MG TABLET 2.5 MG PO (08:25)
[2021-12-28] MEDS: lamoTRIgine 25 MG TABLET 150 MG PO ×2 (09:43→19:22)
[2021-12-28 11:44] VITALS: BP 123/57; PULSE 76; RESP 18; TEMP 36.8; O2SAT 92
--- NOTE | 2021-12-28 13:24 | HO.PM.IMPN ---
Subjective Subjective Date of Service: 12/28/21 Interval History: No acute issues overnight. Patient tolerating diet with out pain Review of Systems Denies chest pain Denies shortness of breath Denies nausea vomiting diarrhea Denies postprandial pain Physical Exam Vital Signs: Vital Signs: Last Vital Signs Temp 98.2 F 12/28/21 11:44 Pulse 76 12/28/21 11:44 Resp 18 12/28/21 11:44 BP 123/57 L 12/28/21 11:44 Pulse Ox 92 12/28/21 11:44 BMI result Body Mass Index 30.4 Const: Other: awake alert no acute distress Resp: Other: diminished left base with fine crackles noted Cardio: Other: no S4; positive S1-S2; no S3 murmurs rubs gallops GI: Other: soft nontender nondistended. Normoactive bowel sounds x4 quadrants. Negative Ann's Neuro: Other: (see patient known to me) moves all extremity with with equal power. . . At baseline Extrem: Other: no edema bilaterally Objective Data Active Medications Aripiprazole (Aripiprazole 5 Mg Tablet) 2.5 mg PO DAILY [facility] Last Admin: 12/28/21 08:25 Dose: 2.5 mg Documented by: MILLA Calcium Carbonate (Calcium Carbonate 500 Mg Tablet) 500 mg PO Q8H PRN PRN Reason: Heartburn Enoxaparin Sodium (Enoxaparin Sodium 40 Mg/0.4 Ml Syringe) 40 mg SUBCUT Q24H [facility] Last Admin: 12/27/21 16:44 Dose: 40 mg Documented by: SAMIR Escitalopram Oxalate (Escitalopram Oxalate 10 Mg Tablet) 10 mg PO DAILY [facility] Last Admin: 12/28/21 08:24 Dose: 10 mg Documented by: MILLA Famotidine (Famotidine 20 Mg Tablet) 40 mg PO DAILY [facility] Last Admin: 12/28/21 08:24 Dose: 40 mg Documented by: MILLA Gemfibrozil (Gemfibrozil 600 Mg Tablet) 600 mg PO BID [facility] Last Admin: 12/28/21 08:24 Dose: 600 mg Documented by: MILLA Piperacillin Sod/Tazobactam (Sod 4.5 gm/ Sodium Chloride) 100 mls @ 200 mls/hr IV Q6H [facility] Last Infusion: 12/28/21 13:17 Dose: 0 mls/hr Documented by: MILLA Vancomycin HCl 1,000 mg/ (Sodium Chloride) 270 mls @ 270 mls/hr IV Q12H [facility] Last Infusion: 12/28/21 08:30 Dose: 0 mls/hr Documented by: MILLA Lamotrigine (Lamotrigine 25 Mg Tablet) 150 mg PO BID [facility] Last Admin: 12/28/21 09:43 Dose: 150 mg Documented by: MILLA Loperamide HCl (Loperamide Hcl 2 Mg Capsule) 2 mg PO Q6H PRN PRN Reason: Diarrhea Loratadine (Loratadine 10 Mg Tablet) 10 mg PO DAILY [facility] Last Admin: 12/28/21 08:24 Dose: 10 mg Documented by: MILLA Pharmacy Consult (Consult Rx Vancomycin Dosing) 1 each MISCELLANE DAILY PRN PRN Reason: Consult order Senna (Sennosides 8.6 Mg Tablet) 8.6 mg PO Q24H PRN PRN Reason: Constipation Sodium Chloride (Sodium Chloride 0.65 % Nasal 44 Ml Sprbtl) 1 spray NOSTRIL-B Q8H PRN PRN Reason: Nasal Congestion Sodium Chloride (0.9 % Sodium Chloride Flush 3 Ml Syringe) 3 ml IVFLUSH QSHIFT [facility] Last Admin: 12/28/21 08:25 Dose: 3 ml Documented by: MILLA Labs CBC & Chem 7: 12/28/21 05:33 12/28/21 05:33 Labs: Laboratory Results - last 24 hr 12/27/21 12/28/21 12/28/21 15:14 05:33 05:33 MCV 92.9 MCH 28.8 MCHC 31.0 RDW 15.0 Plt Count 304 MPV 9.3 L Immature Gran % (Auto) 0.9 H Neut % (Auto) 41.5 L Lymph % (Auto) 20.6 [place] % (Auto) 6.8 Eos % (Auto) 29.5 H Baso % (Auto) 0.7 Lymph # (Auto) 2.4 [place] # (Auto) 0.8 Eos # (Auto) 3.5 H Baso # (Auto) 0.1 Abs Immat Gran (auto) 0.11 H Absolute Neuts (auto) 4.9 Absolute Nucleated RBC 0.000 Nucleated RBC % (auto) 0.0 Smear Tech's Comments VERIFIED Anion Gap 12 Estim Creat Clear Calc 74.7 Estimated GFR > 60 Fasting Glucose 123 H Calcium 8.8 Total Bilirubin 1.2 H AST 346 H ALT 398 H Alkaline Phosphatase 407 H Total Protein 5.4 L Albumin 3.0 L Vancomycin Trough 15.6 Microbiology Microbiology Results: Microbiology 12/22/21 11:35 Blood Culture - Final Blood - Venous No growth after 5 days. 12/22/21 10:27 Blood Culture - Final Blood - Venous No growth after 5 days. Assessment and Plan (1) Pneumonia: Status: Acute (2) Abnormal LFTs: Status: Acute (3) Traumatic brain injury: Status: Acute Plan 61-year-old female with multiple medical problems including dementia, traumatic brain injury with known gallstones, who was [facility] because of altered mental status changes.ER workup revealed left base infiltrate. CT scan suspicious fo Chlecystitis ; seen by surgery. Advised conservative management 1. Left base pneumonia(HAP) -Vanco/zosyn(6) - titrate O2/prn nebs - supplemental IVFs 2. Transaminitis --MRCP consistant with stone in cystic duct;LFTs continue to be elevated -remains asymptomatic;continue ABTX -trend LFT's in am;surgery if symptomatic 3.TBI/dementia -continue outpatient therapies. -adjust as indicated. Lovenox Full code Will require 2 additional midnights to ensure downward trend of LFTs and no complications Quality Stroke Does the patient have a stroke diagnosis?: No VTE Prior VTE?: No VTE Risk Level:: Medical - moderate - high VTE Device Contraindication: Treatment Not Indicated VTE Drug Contraindication: N/A - Med Ordered
[2021-12-28 15:44] VITALS: BP 111/56; PULSE 73; RESP 18; TEMP 36.1; O2SAT 96
[2021-12-28 16:08] LABS: Vancomycin Trough 14.3 mcg/mL (10.0-20.0)
--- NOTE | 2021-12-28 16:22 | HE.PHANOTE ---
Vancomycin Dosing Addendum Vancomycin trough 14.3. continue current regimen.
[2021-12-28] MEDS: Enoxaparin Sodium 40 MG/0.4 ML SYRINGE SUBCUT (16:58)
[2021-12-28 17:34] VITALS: BP 126/60; PULSE 94; RESP 18; TEMP 36.7; O2SAT 95
[2021-12-28 23:56] VITALS: BP 98/42; PULSE 73; RESP 16; TEMP 37.6; O2SAT 90
[2021-12-29 03:14] VITALS: BP 105/54; PULSE 76; RESP 16; TEMP 37.1; O2SAT 92
[2021-12-29] MEDS: vancomycin HCL 1,000 MG in 0.9 % Sodium Chloride 250 ML 270 MG IV ×2 (05:19→16:57)
[2021-12-29 05:58] LABS: Basophils Absolute Auto 0.1 X10*3/uL (0.0-0.2); Basophils Percent Auto 0.5 % (0-2); Eosinophils Absolute Auto 3.3 X10*3/uL (0.0-0.4); Hematocrit 35.5 % (37.0-47.0); Hemoglobin 11.3 g/dl (12.0-16.0); Imm Gran Abs Auto 0.09 X10*3/uL (0.00-0.03); Imm Gran Pct Auto 0.8 % (0.0-0.4); Lymphocytes Absolute Auto 2.3 X10*3/uL (1.2-4.9); Lymphocytes Percent Auto 19.8 % (20-40); MANUAL DIFF FLAG SCAN; Mean Corpuscular HGB Conc 31.8 g/dl (31.0-35.0); Mean Corpuscular Hemoglobin 29.2 pg (27.0-33.0); Mean Corpuscular Volume 91.7 fL (80.0-98.0); Mean Platelet Volume 9.4 fL (9.4-12.3); Monocytes Absolute Auto 0.8 X10*3/uL (0.1-1.2); Monocytes Percent Auto 6.7 % (2-11); Neutrophils Absolute Auto 5.2 x10*3/uL (2.0-8.3); Neutrophils Percent Auto 44.2 % (45-73); Platelet Count 310 X10*3/uL (160-400); Red Blood Count 3.87 X10*6/uL (4.20-5.50); Red Cell Distribution Width 15.1 % (11.0-16.0); SCAN SMEAR FLAG 1; White Blood Count 11.7 X10*3/uL (4.8-10.8)
[2021-12-29 06:19] LABS: SLIDE REVIEW VERIFIED
[2021-12-29 06:22] LABS: Alanine Aminotransferase 400 U/L (0-31); Albumin Level 3.1 g/dL (3.5-5.0); Alkaline Phosphatase 408 U/L (39-117); Anion Gap 12 (12-20); Aspartate Amino Transferase 365 U/L (5-31); Bilirubin Total 1.1 mg/dL (0.0-1.0); Blood Urea Nitrogen 11 mg/dL (9-16); Calcium 8.9 mg/dL (8.4-10.2); Carbon Dioxide 23 mmol/L (22-29); Chloride 113 mmol/L (96-108); Estimated Glomerular Filt Rate > 60; Glucose Fasting 118 mg/dL (60-99); Potassium 3.9 mmol/L (3.3-5.1); Sodium 144 mmol/L (135-145); Total Protein 5.8 g/dL (6.5-8.0)
[2021-12-29] MEDS: Piperacillin Sodium/Tazobactam 4.5 GM in 0.9 % Sodium Chloride 100 ML IV ×3 (06:26→18:59)
--- NOTE | 2021-12-29 07:15 | HE.PHANOTE ---
RE Vancomycin Continue current dose. next trough 12/30 @0300 Param
[2021-12-29] MEDS: lamoTRIgine 25 MG TABLET 150 MG PO ×2 (07:36→22:39)
[2021-12-29] MEDS: Escitalopram Oxalate 10 MG TABLET PO (07:37)
[2021-12-29] MEDS: Famotidine 20 MG TABLET 40 MG PO (07:37)
[2021-12-29] MEDS: gemfibroziL 600 MG TABLET PO ×2 (07:37→22:39)
[2021-12-29] MEDS: Loratadine 10 MG TABLET PO (07:37)
[2021-12-29] MEDS: ARIPiprazole 5 MG TABLET 2.5 MG PO (07:37)
[2021-12-29] MEDS: 0.9 % Sodium Chloride Flush 3 ML SYRINGE IVFLUSH ×2 (07:38→16:58)
[2021-12-29 08:00] VITALS: BP 93/51; PULSE 66; RESP 18; TEMP 36.7; O2SAT 91
[2021-12-29 09:06] LABS: C Reactive Protein 4.84 mg/dL (< or = 0.50)
[2021-12-29 11:34] LABS: Procalcitonin 0.38 ng/mL
[2021-12-29 11:38] VITALS: BP 97/49; PULSE 65; RESP 18; TEMP 37.1; O2SAT 95
--- NOTE | 2021-12-29 13:57 | P.PNIM_ITS ---
Subjective Subjective Date of Service: 12/29/21 Interval History: Denies cough or dyspnea Some abdominal discomfort though tolerating diet without N/V Review of Systems Review of Systems: Yes all other systems are reviewed and are negative (though limited by mental statu) Physical Exam Vital Signs: Vital Signs: Last Vital Signs Temp 98.7 F 12/29/21 11:38 Pulse 65 12/29/21 11:38 Resp 18 12/29/21 11:38 BP 97/49 L 12/29/21 11:38 Pulse Ox 95 12/29/21 11:38 BMI result Body Mass Index 30.4 Gen: in no acute distress HEENT: sclera anicteric, moist mucus membranes Neck: supple Lungs: diminished L base Heart: regular rate and rhythm, no murmurs Abd: soft, slightly tender RUQ but no rebound/guarding and negative Ann sign Ext: no edema Skin: warm/well-perfused Neuro: alert, normal speech Psych: impaired insight Objective Data Active Medications Aripiprazole (Aripiprazole 5 Mg Tablet) 2.5 mg PO DAILY [facility] Last Admin: 12/29/21 07:37 Dose: 2.5 mg Documented by: MILLA Calcium Carbonate (Calcium Carbonate 500 Mg Tablet) 500 mg PO Q8H PRN PRN Reason: Heartburn Enoxaparin Sodium (Enoxaparin Sodium 40 Mg/0.4 Ml Syringe) 40 mg SUBCUT Q24H [facility] Last Admin: 12/28/21 16:58 Dose: 40 mg Documented by: MILLA Escitalopram Oxalate (Escitalopram Oxalate 10 Mg Tablet) 10 mg PO DAILY [facility] Last Admin: 12/29/21 07:37 Dose: 10 mg Documented by: MILLA Famotidine (Famotidine 20 Mg Tablet) 40 mg PO DAILY [facility] Last Admin: 12/29/21 07:37 Dose: 40 mg Documented by: MILLA Gemfibrozil (Gemfibrozil 600 Mg Tablet) 600 mg PO BID [facility] Last Admin: 12/29/21 07:37 Dose: 600 mg Documented by: MILLA Piperacillin Sod/Tazobactam (Sod 4.5 gm/ Sodium Chloride) 100 mls @ 200 mls/hr IV Q6H [facility] Last Admin: 12/29/21 12:39 Dose: 200 mls/hr Documented by: MILLA Vancomycin HCl 1,000 mg/ (Sodium Chloride) 270 mls @ 270 mls/hr IV Q12H [facility] Last Infusion: 12/29/21 06:24 Dose: 0 mls/hr Documented by: FRANCISCA Lamotrigine (Lamotrigine 25 Mg Tablet) 150 mg PO BID [facility] Last Admin: 12/29/21 07:36 Dose: 150 mg Documented by: MILLA Loperamide HCl (Loperamide Hcl 2 Mg Capsule) 2 mg PO Q6H PRN PRN Reason: Diarrhea Loratadine (Loratadine 10 Mg Tablet) 10 mg PO DAILY [facility] Last Admin: 12/29/21 07:37 Dose: 10 mg Documented by: MILLA Pharmacy Consult (Consult Rx Vancomycin Dosing) 1 each MISCELLANE DAILY PRN PRN Reason: Consult order Senna (Sennosides 8.6 Mg Tablet) 8.6 mg PO Q24H PRN PRN Reason: Constipation Sodium Chloride (Sodium Chloride 0.65 % Nasal 44 Ml Sprbtl) 1 spray NOSTRIL-B Q8H PRN PRN Reason: Nasal Congestion Sodium Chloride (0.9 % Sodium Chloride Flush 3 Ml Syringe) 3 ml IVFLUSH QSHIFT [facility] Last Admin: 12/29/21 07:38 Dose: 3 ml Documented by: MILLA Labs CBC & Chem 7: 12/29/21 05:36 12/29/21 05:36 Labs: Laboratory Results - last 24 hr 12/28/21 12/29/21 12/29/21 15:31 05:36 05:36 MCV 91.7 MCH 29.2 MCHC 31.8 RDW 15.1 Plt Count 310 MPV 9.4 Immature Gran % (Auto) 0.8 H Neut % (Auto) 44.2 L Lymph % (Auto) 19.8 L [place] % (Auto) 6.7 Eos % (Auto) 28.0 H Baso % (Auto) 0.5 Lymph # (Auto) 2.3 [place] # (Auto) 0.8 Eos # (Auto) 3.3 H Baso # (Auto) 0.1 Abs Immat Gran (auto) 0.09 H Absolute Neuts (auto) 5.2 Absolute Nucleated RBC 0.000 Nucleated RBC % (auto) 0.0 Smear Tech's Comments VERIFIED Anion Gap 12 Estim Creat Clear Calc 82.0 Estimated GFR > 60 Fasting Glucose 118 H Calcium 8.9 Total Bilirubin 1.1 H AST 365 H ALT 400 H Alkaline Phosphatase 408 H C-Reactive Protein 4.84 H Total Protein 5.8 L Albumin 3.1 L Procalcitonin Vancomycin Trough 14.3 12/29/21 05:36 MCV MCH MCHC RDW Plt Count MPV Immature Gran % (Auto) Neut % (Auto) Lymph % (Auto) [place] % (Auto) Eos % (Auto) Baso % (Auto) Lymph # (Auto) [place] # (Auto) Eos # (Auto) Baso # (Auto) Abs Immat Gran (auto) Absolute Neuts (auto) Absolute Nucleated RBC Nucleated RBC % (auto) Smear Tech's Comments Anion Gap Estim Creat Clear Calc Estimated GFR Fasting Glucose Calcium Total Bilirubin AST ALT Alkaline Phosphatase C-Reactive Protein Total Protein Albumin Procalcitonin 0.38 Vancomycin Trough Assessment and Plan (1) Pneumonia: Status: Acute (2) Abnormal LFTs: Status: Acute (3) Traumatic brain injury: Status: Acute Plan hospital d#8 61yo F with dementia, TBI, gallstones sent from [facility] to [facility] for AMS. Found to have LLL PNA + concern of acute cholecystitis # LLL PNA - vanco + pip/allison d#7. BCx negative. PCT low. # cystic duct gallstone # transaminasemia - concern of acute cholecytitis. continue pip/allison and ask Gen Surg to see again. # dementia - aripiprazole, lamotrigine, escitalopram # VTE ppx - LMWH Quality Stroke Does the patient have a stroke diagnosis?: No VTE Prior VTE?: No VTE Risk Level:: Medical - moderate - high VTE Device Contraindication: Treatment Not Indicated VTE Drug Contraindication: N/A - Med Ordered
--- NOTE | 2021-12-29 14:28 | MHC.CM.PN ---
[facility] AT [facility] UPDATED IN [facility] NO PLAN FOR DC TODAY POSSIBLE NEED FOR SURGICAL INTERVENTION IF NO IMPROVEMENT
[2021-12-29 16:00] VITALS: BP 110/70; PULSE 73; RESP 18; TEMP 36.4; O2SAT 95
--- NOTE | 2021-12-29 16:43 | P.PNGS_ITS ---
Subjective Subjective Date of Service: 12/29/21 Interval history: Patient reports some pain in the right lower quadrant. Tolerating a diet without nausea or vomiting. Physical Exam Vital Signs: Vital Signs: Last Vital Signs Temp 97.6 F 12/29/21 16:00 Pulse 73 12/29/21 16:00 Resp 18 12/29/21 16:00 BP 110/70 12/29/21 16:00 Pulse Ox 95 12/29/21 16:00 BMI result Body Mass Index 30.4 Const: General: no acute distress and patient obtunded Nutritional Appearance: well nourished Orientation/consciousness: patient obtunded Limitations: altered mental status Eyes: Sclerae: sclerae normal GI: Other: soft, tender in the left and right lower quadrants, minimal RUQ tenderness, negative Ann's sign. Bruising in the lower abdomen from injections Skin: Other: no jaundice; Rashes: no rashes Neuro: General: patient obtunded Extrem: General: Yes no pedal edema Objective Data Active Medications Aripiprazole (Aripiprazole 5 Mg Tablet) 2.5 mg PO DAILY [facility] Last Admin: 12/29/21 07:37 Dose: 2.5 mg Documented by: MILLA Calcium Carbonate (Calcium Carbonate 500 Mg Tablet) 500 mg PO Q8H PRN PRN Reason: Heartburn Enoxaparin Sodium (Enoxaparin Sodium 40 Mg/0.4 Ml Syringe) 40 mg SUBCUT Q24H [facility] Last Admin: 12/28/21 16:58 Dose: 40 mg Documented by: MILLA Escitalopram Oxalate (Escitalopram Oxalate 10 Mg Tablet) 10 mg PO DAILY [facility] Last Admin: 12/29/21 07:37 Dose: 10 mg Documented by: MILLA Famotidine (Famotidine 20 Mg Tablet) 40 mg PO DAILY [facility] Last Admin: 12/29/21 07:37 Dose: 40 mg Documented by: MILLA Gemfibrozil (Gemfibrozil 600 Mg Tablet) 600 mg PO BID [facility] Last Admin: 12/29/21 07:37 Dose: 600 mg Documented by: MILLA Piperacillin Sod/Tazobactam (Sod 4.5 gm/ Sodium Chloride) 100 mls @ 200 mls/hr IV Q6H [facility] Last Infusion: 12/29/21 14:08 Dose: 0 mls/hr Documented by: MILLA Vancomycin HCl 1,000 mg/ (Sodium Chloride) 270 mls @ 270 mls/hr IV Q12H [facility] Last Infusion: 12/29/21 06:24 Dose: 0 mls/hr Documented by: FRANCISCA Lamotrigine (Lamotrigine 25 Mg Tablet) 150 mg PO BID [facility] Last Admin: 12/29/21 07:36 Dose: 150 mg Documented by: MILLA Loperamide HCl (Loperamide Hcl 2 Mg Capsule) 2 mg PO Q6H PRN PRN Reason: Diarrhea Loratadine (Loratadine 10 Mg Tablet) 10 mg PO DAILY [facility] Last Admin: 12/29/21 07:37 Dose: 10 mg Documented by: MILLA Senna (Sennosides 8.6 Mg Tablet) 8.6 mg PO Q24H PRN PRN Reason: Constipation Sodium Chloride (Sodium Chloride 0.65 % Nasal 44 Ml Sprbtl) 1 spray NOSTRIL-B Q8H PRN PRN Reason: Nasal Congestion Sodium Chloride (0.9 % Sodium Chloride Flush 3 Ml Syringe) 3 ml IVFLUSH QSHIFT [facility] Last Admin: 12/29/21 07:38 Dose: 3 ml Documented by: MILLA Labs CBC & Chem 7: 12/29/21 05:36 12/29/21 05:36 Labs: Laboratory Results - last 24 hr 12/29/21 12/29/21 12/29/21 05:36 05:36 05:36 MCV 91.7 MCH 29.2 MCHC 31.8 RDW 15.1 Plt Count 310 MPV 9.4 Immature Gran % (Auto) 0.8 H Neut % (Auto) 44.2 L Lymph % (Auto) 19.8 L [place] % (Auto) 6.7 Eos % (Auto) 28.0 H Baso % (Auto) 0.5 Lymph # (Auto) 2.3 [place] # (Auto) 0.8 Eos # (Auto) 3.3 H Baso # (Auto) 0.1 Abs Immat Gran (auto) 0.09 H Absolute Neuts (auto) 5.2 Absolute Nucleated RBC 0.000 Nucleated RBC % (auto) 0.0 Smear Tech's Comments VERIFIED Anion Gap 12 Estim Creat Clear Calc 82.0 Estimated GFR > 60 Fasting Glucose 118 H Calcium 8.9 Total Bilirubin 1.1 H AST 365 H ALT 400 H Alkaline Phosphatase 408 H C-Reactive Protein 4.84 H Total Protein 5.8 L Albumin 3.1 L Procalcitonin 0.38 Procedures Date of Service Date of Service: 12/29/21 Progress Note: A&P Assessment and plan (1) Acute calculous cholecystitis: Status: Acute Plan 61-year-old female with some tenderness in the lower abdomen and minimal tenderness in the right upper quadrant found on workup to have distended gallbladder with possible evidence of acute cholecystitis. Patient is eating without apparent nausea or vomiting. Exam is difficult due to mental status changes. Difficult to tell if pain is from injection sites or gallbladder. As she is tolerating her diet would continue to hold off on surgery. Fall Risk Details Current Medications: Current Medications Aripiprazole (Aripiprazole 5 Mg Tablet) 2.5 mg PO DAILY [facility] Last Admin: 12/29/21 07:37 Dose: 2.5 mg Documented by: Calcium Carbonate (Calcium Carbonate 500 Mg Tablet) 500 mg PO Q8H PRN PRN Reason: Heartburn Enoxaparin Sodium (Enoxaparin Sodium 40 Mg/0.4 Ml Syringe) 40 mg SUBCUT Q24H [facility] Last Admin: 12/28/21 16:58 Dose: 40 mg Documented by: Escitalopram Oxalate (Escitalopram Oxalate 10 Mg Tablet) 10 mg PO DAILY [facility] Last Admin: 12/29/21 07:37 Dose: 10 mg Documented by: Famotidine (Famotidine 20 Mg Tablet) 40 mg PO DAILY [facility] Last Admin: 12/29/21 07:37 Dose: 40 mg Documented by: Gemfibrozil (Gemfibrozil 600 Mg Tablet) 600 mg PO BID [facility] Last Admin: 12/29/21 07:37 Dose: 600 mg Documented by: Piperacillin Sod/Tazobactam (Sod 4.5 gm/ Sodium Chloride) 100 mls @ 200 mls/hr IV Q6H [facility] Last Infusion: 12/29/21 14:08 Dose: Infused Documented by: Vancomycin HCl 1,000 mg/ (Sodium Chloride) 270 mls @ 270 mls/hr IV Q12H [facility] Last Infusion: 12/29/21 06:24 Dose: Infused Documented by: Lamotrigine (Lamotrigine 25 Mg Tablet) 150 mg PO BID [facility] Last Admin: 12/29/21 07:36 Dose: 150 mg Documented by: Loperamide HCl (Loperamide Hcl 2 Mg Capsule) 2 mg PO Q6H PRN PRN Reason: Diarrhea Loratadine (Loratadine 10 Mg Tablet) 10 mg PO DAILY [facility] Last Admin: 12/29/21 07:37 Dose: 10 mg Documented by: Senna (Sennosides 8.6 Mg Tablet) 8.6 mg PO Q24H PRN PRN Reason: Constipation Sodium Chloride (Sodium Chloride 0.65 % Nasal 44 Ml Sprbtl) 1 spray NOSTRIL-B Q8H PRN PRN Reason: Nasal Congestion Sodium Chloride (0.9 % Sodium Chloride Flush 3 Ml Syringe) 3 ml IVFLUSH QSHIFT [facility] Last Admin: 12/29/21 07:38 Dose: 3 ml Documented by: Time Spent With Patient Time: Total time spent is greater than 50% in coordination of care (as documented) at patient's floor/unit and/or counseling patient: Quality Stroke Does the patient have a stroke diagnosis?: No VTE Prior VTE?: No VTE Risk Level:: Medical - moderate - high VTE Device Contraindication: Treatment Not Indicated VTE Drug Contraindication: N/A - Med Ordered
[2021-12-29] MEDS: Enoxaparin Sodium 40 MG/0.4 ML SYRINGE SUBCUT (16:57)
[2021-12-29 19:38] VITALS: BP 120/59; PULSE 72; RESP 18; TEMP 36.4; O2SAT 96
[2021-12-29 23:52] VITALS: BP 104/66; PULSE 86; RESP 14; TEMP 36.9; O2SAT 92
[2021-12-30] MEDS: 0.9 % Sodium Chloride Flush 3 ML SYRINGE IVFLUSH ×4 (01:41→23:49)
[2021-12-30] MEDS: Piperacillin Sodium/Tazobactam 4.5 GM in 0.9 % Sodium Chloride 100 ML IV ×5 (01:41→23:50)
[2021-12-30 03:15] VITALS: BP 109/53; PULSE 87; RESP 20; TEMP 36.8; O2SAT 91
[2021-12-30 03:31] LABS: Vancomycin Trough 13.9 mcg/mL (10.0-20.0)
[2021-12-30] MEDS: vancomycin HCL 1,000 MG in 0.9 % Sodium Chloride 250 ML 270 MG IV (04:59)
[2021-12-30 06:08] LABS: Hematocrit 35.3 % (37.0-47.0); Hemoglobin 11.2 g/dl (12.0-16.0); Mean Corpuscular HGB Conc 31.7 g/dl (31.0-35.0); Mean Corpuscular Hemoglobin 29.2 pg (27.0-33.0); Mean Corpuscular Volume 92.2 fL (80.0-98.0); Mean Platelet Volume 9.6 fL (9.4-12.3); Platelet Count 311 X10*3/uL (160-400); Red Blood Count 3.83 X10*6/uL (4.20-5.50); Red Cell Distribution Width 15.5 % (11.0-16.0); White Blood Count 12.3 X10*3/uL (4.8-10.8)
[2021-12-30 06:22] LABS: Alanine Aminotransferase 380 U/L (0-31); Albumin Level 3.1 g/dL (3.5-5.0); Alkaline Phosphatase 392 U/L (39-117); Anion Gap 12 (12-20); Aspartate Amino Transferase 339 U/L (5-31); Bilirubin Total 1.2 mg/dL (0.0-1.0); Blood Urea Nitrogen 10 mg/dL (9-16); Calcium 8.6 mg/dL (8.4-10.2); Carbon Dioxide 21 mmol/L (22-29); Chloride 114 mmol/L (96-108); Creatinine Clr Calc Pharmacy 84.4; Estimated Glomerular Filt Rate > 60; Glucose Fasting 118 mg/dL (60-99); Potassium 3.9 mmol/L (3.3-5.1); Sodium 143 mmol/L (135-145); Total Protein 5.7 g/dL (6.5-8.0)
[2021-12-30 07:43] VITALS: BP 115/56; PULSE 81; RESP 18; TEMP 36.9; O2SAT 95
[2021-12-30] MEDS: lamoTRIgine 25 MG TABLET 150 MG PO ×2 (07:43→19:04)
[2021-12-30] MEDS: ARIPiprazole 5 MG TABLET 2.5 MG PO (07:44)
[2021-12-30] MEDS: Escitalopram Oxalate 10 MG TABLET PO (07:44)
[2021-12-30] MEDS: gemfibroziL 600 MG TABLET PO ×2 (07:44→19:04)
[2021-12-30] MEDS: Loratadine 10 MG TABLET PO (07:44)
[2021-12-30] MEDS: Famotidine 20 MG TABLET 40 MG PO (07:44)
--- NOTE | 2021-12-30 07:52 | HE.PHANOTE ---
Trough last night 13.9, predicted AUC test is 432, next trough 12/31 @1500
--- NOTE | 2021-12-30 10:42 | HO.PM.IMPN ---
Subjective Subjective Date of Service: 12/30/21 Interval History: no cough or dyspnea mild abd pain but tolerating diet Review of Systems Review of Systems: Yes all other systems are reviewed and are negative Physical Exam Vital Signs: Vital Signs: Last Vital Signs Temp 98.5 F 12/30/21 07:43 Pulse 81 12/30/21 07:43 Resp 18 12/30/21 07:43 BP 115/56 L 12/30/21 07:43 Pulse Ox 95 12/30/21 07:43 BMI result Body Mass Index 30.4 Gen: in no acute distress HEENT: sclera anicteric, moist mucus membranes Neck: supple Lungs: diminished L base Heart: regular rate and rhythm, no murmurs Abd: soft, slightly tender RUQ but no rebound/guarding and negative Ann sign Ext: no edema Skin: warm/well-perfused Neuro: alert, normal speech Psych: impaired insight Objective Data Active Medications Aripiprazole (Aripiprazole 5 Mg Tablet) 2.5 mg PO DAILY [facility] Last Admin: 12/30/21 07:44 Dose: 2.5 mg Documented by: JAKUB Calcium Carbonate (Calcium Carbonate 500 Mg Tablet) 500 mg PO Q8H PRN PRN Reason: Heartburn Enoxaparin Sodium (Enoxaparin Sodium 40 Mg/0.4 Ml Syringe) 40 mg SUBCUT Q24H [facility] Last Admin: 12/29/21 16:57 Dose: 40 mg Documented by: MILLA Escitalopram Oxalate (Escitalopram Oxalate 10 Mg Tablet) 10 mg PO DAILY [facility] Last Admin: 12/30/21 07:44 Dose: 10 mg Documented by: JAKUB Famotidine (Famotidine 20 Mg Tablet) 40 mg PO DAILY [facility] Last Admin: 12/30/21 07:44 Dose: 40 mg Documented by: JAKUB Gemfibrozil (Gemfibrozil 600 Mg Tablet) 600 mg PO BID [facility] Last Admin: 12/30/21 07:44 Dose: 600 mg Documented by: JAKUB Piperacillin Sod/Tazobactam (Sod 4.5 gm/ Sodium Chloride) 100 mls @ 200 mls/hr IV Q6H [facility] Last Infusion: 12/30/21 06:40 Dose: 0 mls/hr Documented by: ONOFRE Vancomycin HCl 1,000 mg/ (Sodium Chloride) 270 mls @ 270 mls/hr IV Q12H [facility] Last Infusion: 12/30/21 06:10 Dose: 0 mls/hr Documented by: ONOFRE Lamotrigine (Lamotrigine 25 Mg Tablet) 150 mg PO BID [facility] Last Admin: 12/30/21 07:43 Dose: 150 mg Documented by: JAKUB Loperamide HCl (Loperamide Hcl 2 Mg Capsule) 2 mg PO Q6H PRN PRN Reason: Diarrhea Loratadine (Loratadine 10 Mg Tablet) 10 mg PO DAILY [facility] Last Admin: 12/30/21 07:44 Dose: 10 mg Documented by: JAKUB Senna (Sennosides 8.6 Mg Tablet) 8.6 mg PO Q24H PRN PRN Reason: Constipation Sodium Chloride (Sodium Chloride 0.65 % Nasal 44 Ml Sprbtl) 1 spray NOSTRIL-B Q8H PRN PRN Reason: Nasal Congestion Sodium Chloride (0.9 % Sodium Chloride Flush 3 Ml Syringe) 3 ml IVFLUSH QSHIFT [facility] Last Admin: 12/30/21 07:48 Dose: 3 ml Documented by: JAKUB Labs CBC & Chem 7: 12/30/21 05:23 12/30/21 05:23 Labs: Laboratory Results - last 24 hr 12/29/21 12/30/21 12/30/21 05:36 02:55 05:23 MCV 92.2 MCH 29.2 MCHC 31.7 RDW 15.5 Plt Count 311 MPV 9.6 Immature Gran % (Auto) Cancelled Neut % (Auto) Cancelled Lymph % (Auto) Cancelled [place] % (Auto) Cancelled Eos % (Auto) Cancelled Baso % (Auto) Cancelled Lymph # (Auto) Cancelled [place] # (Auto) Cancelled Eos # (Auto) Cancelled Baso # (Auto) Cancelled Abs Immat Gran (auto) Cancelled Absolute Neuts (auto) Cancelled Absolute Nucleated RBC 0.000 Nucleated RBC % (auto) 0.0 Anion Gap Estim Creat Clear Calc Estimated GFR Random Glucose Fasting Glucose Calcium Total Bilirubin AST ALT Alkaline Phosphatase Total Protein Albumin Procalcitonin 0.38 Vancomycin Trough 13.9 12/30/21 05:23 MCV MCH MCHC RDW Plt Count MPV Immature Gran % (Auto) Neut % (Auto) Lymph % (Auto) [place] % (Auto) Eos % (Auto) Baso % (Auto) Lymph # (Auto) [place] # (Auto) Eos # (Auto) Baso # (Auto) Abs Immat Gran (auto) Absolute Neuts (auto) Absolute Nucleated RBC Nucleated RBC % (auto) Anion Gap 12 Estim Creat Clear Calc 84.4 Estimated GFR > 60 Random Glucose Cancelled Fasting Glucose 118 H Calcium 8.6 Total Bilirubin 1.2 H AST 339 H ALT 380 H Alkaline Phosphatase 392 H Total Protein 5.7 L Albumin 3.1 L Procalcitonin Vancomycin Trough Assessment and Plan (1) Pneumonia: Status: Acute (2) Abnormal LFTs: Status: Acute (3) Traumatic brain injury: Status: Acute Plan hospital d#9 61yo F with dementia, TBI, gallstones sent from [facility] for AMS. Found to have LLL PNA + concern of acute cholecystitis # LLL PNA - d/c vanco [completed 7d], continue pip/allison d#8. BCx negative. PCT low. # cystic duct gallstone # transaminasemia - concern of acute cholecytitis but minimal symptoms and tolerating diet, though LFTs remain elevated continue pip/allison. appreciate Surgery input. consider re-imaging? # dementia - aripiprazole, lamotrigine, escitalopram # VTE ppx - LMWH Quality Stroke Does the patient have a stroke diagnosis?: No VTE Prior VTE?: No VTE Risk Level:: Medical - moderate - high VTE Device Contraindication: Treatment Not Indicated VTE Drug Contraindication: N/A - Med Ordered
[2021-12-30 12:00] VITALS: BP 99/53; PULSE 77; RESP 18; TEMP 36.2; O2SAT 92
[2021-12-30 15:28] VITALS: BP 100/45; PULSE 78; RESP 18; TEMP 36.9; O2SAT 95
[2021-12-30] MEDS: Enoxaparin Sodium 40 MG/0.4 ML SYRINGE SUBCUT (16:42)
[2021-12-30 19:49] VITALS: BP 115/50; PULSE 73; RESP 18; TEMP 36.9; O2SAT 95
[2021-12-30 23:48] VITALS: BP 101/55; PULSE 94; RESP 18; TEMP 36.6; O2SAT 94
[2021-12-31 04:00] VITALS: BP 119/53; PULSE 75; RESP 18; TEMP 36.7; O2SAT 96
[2021-12-31] MEDS: Piperacillin Sodium/Tazobactam 4.5 GM in 0.9 % Sodium Chloride 100 ML IV (05:24)
[2021-12-31 06:15] LABS: Hematocrit 37.7 % (37.0-47.0); Hemoglobin 11.9 g/dl (12.0-16.0); Mean Corpuscular HGB Conc 31.6 g/dl (31.0-35.0); Mean Corpuscular Hemoglobin 29.5 pg (27.0-33.0); Mean Corpuscular Volume 93.3 fL (80.0-98.0); Mean Platelet Volume 9.6 fL (9.4-12.3); Platelet Count 335 X10*3/uL (160-400); Red Blood Count 4.04 X10*6/uL (4.20-5.50); Red Cell Distribution Width 15.9 % (11.0-16.0); White Blood Count 11.2 X10*3/uL (4.8-10.8)
[2021-12-31 06:37] LABS: Alanine Aminotransferase 403 U/L (0-31); Albumin Level 3.3 g/dL (3.5-5.0); Alkaline Phosphatase 423 U/L (39-117); Anion Gap 18 (12-20); Aspartate Amino Transferase 377 U/L (5-31); Bilirubin Total 1.2 mg/dL (0.0-1.0); Blood Urea Nitrogen 10 mg/dL (9-16); C Reactive Protein 5.41 mg/dL (< or = 0.50); Calcium 8.9 mg/dL (8.4-10.2); Carbon Dioxide 20 mmol/L (22-29); Chloride 111 mmol/L (96-108); Creatinine Clr Calc Pharmacy 75.7; Estimated Glomerular Filt Rate > 60; Glucose Random 98 mg/dL (60-115); Potassium 4.5 mmol/L (3.3-5.1); Sodium 144 mmol/L (135-145); Total Protein 6.2 g/dL (6.5-8.0)
[2021-12-31 07:46] VITALS: BP 106/56; PULSE 80; RESP 18; TEMP 37.1; O2SAT 95
[2021-12-31] MEDS: Loratadine 10 MG TABLET PO (08:27)
[2021-12-31] MEDS: 0.9 % Sodium Chloride Flush 3 ML SYRINGE IVFLUSH ×2 (08:27→17:44)
[2021-12-31] MEDS: Famotidine 20 MG TABLET 40 MG PO (08:28)
[2021-12-31] MEDS: lamoTRIgine 25 MG TABLET 150 MG PO ×2 (08:28→19:45)
[2021-12-31] MEDS: ARIPiprazole 5 MG TABLET 2.5 MG PO (08:28)
[2021-12-31] MEDS: Escitalopram Oxalate 10 MG TABLET PO (08:28)
[2021-12-31] MEDS: gemfibroziL 600 MG TABLET PO (08:28)
--- NOTE | 2021-12-31 10:44 | HO.PM.IMPN ---
Subjective Subjective Date of Service: 12/31/21 Interval History: minimal abd discomfort no cough and no dyspnea Review of Systems Review of Systems: Yes all other systems are reviewed and are negative Physical Exam Vital Signs: Vital Signs: Last Vital Signs Temp 98.7 F 12/31/21 07:46 Pulse 80 12/31/21 07:46 Resp 18 12/31/21 07:46 BP 106/56 L 12/31/21 07:46 Pulse Ox 95 12/31/21 07:46 BMI result Body Mass Index 30.4 Gen: in no acute distress HEENT: sclera anicteric, moist mucus membranes Neck: supple Lungs: diminished L base Heart: regular rate and rhythm, no murmurs Abd: soft, slightly tender RUQ but no rebound/guarding and negative Ann sign Ext: no edema Skin: warm/well-perfused Neuro: alert, normal speech Psych: impaired insight Objective Data Active Medications Aripiprazole (Aripiprazole 5 Mg Tablet) 2.5 mg PO DAILY [facility] Last Admin: 12/31/21 08:28 Dose: 2.5 mg Documented by: CK Calcium Carbonate (Calcium Carbonate 500 Mg Tablet) 500 mg PO Q8H PRN PRN Reason: Heartburn Enoxaparin Sodium (Enoxaparin Sodium 40 Mg/0.4 Ml Syringe) 40 mg SUBCUT Q24H [facility] Last Admin: 12/30/21 16:42 Dose: 40 mg Documented by: JUAN Escitalopram Oxalate (Escitalopram Oxalate 10 Mg Tablet) 10 mg PO DAILY [facility] Last Admin: 12/31/21 08:28 Dose: 10 mg Documented by: CK Famotidine (Famotidine 20 Mg Tablet) 40 mg PO DAILY [facility] Last Admin: 12/31/21 08:28 Dose: 40 mg Documented by: CK Gemfibrozil (Gemfibrozil 600 Mg Tablet) 600 mg PO BID [facility] Last Admin: 12/31/21 08:28 Dose: 600 mg Documented by: CK Piperacillin Sod/Tazobactam (Sod 4.5 gm/ Sodium Chloride) 100 mls @ 200 mls/hr IV Q6H [facility] Last Infusion: 12/31/21 06:40 Dose: 0 mls/hr Documented by: JUAN Lamotrigine (Lamotrigine 25 Mg Tablet) 150 mg PO BID [facility] Last Admin: 12/31/21 08:28 Dose: 150 mg Documented by: CK Loperamide HCl (Loperamide Hcl 2 Mg Capsule) 2 mg PO Q6H PRN PRN Reason: Diarrhea Loratadine (Loratadine 10 Mg Tablet) 10 mg PO DAILY [facility] Last Admin: 12/31/21 08:27 Dose: 10 mg Documented by: CK Senna (Sennosides 8.6 Mg Tablet) 8.6 mg PO Q24H PRN PRN Reason: Constipation Sodium Chloride (Sodium Chloride 0.65 % Nasal 44 Ml Sprbtl) 1 spray NOSTRIL-B Q8H PRN PRN Reason: Nasal Congestion Sodium Chloride (0.9 % Sodium Chloride Flush 3 Ml Syringe) 3 ml IVFLUSH QSHIFT [facility] Last Admin: 12/31/21 08:27 Dose: 3 ml Documented by: CK Labs CBC & Chem 7: 12/31/21 05:26 12/31/21 05:26 Labs: Laboratory Results - last 24 hr 12/31/21 12/31/21 05:26 05:26 MCV 93.3 MCH 29.5 MCHC 31.6 RDW 15.9 Plt Count 335 MPV 9.6 Absolute Nucleated RBC 0.000 Nucleated RBC % (auto) 0.0 Anion Gap 18 Estim Creat Clear Calc 75.7 Estimated GFR > 60 Random Glucose 98 Calcium 8.9 Total Bilirubin 1.2 H AST 377 H ALT 403 H Alkaline Phosphatase 423 H C-Reactive Protein 5.41 H Total Protein 6.2 L Albumin 3.3 L ITS Impressions Chest X-Ray 12/22/21 11:26 IMPRESSION: Question left base infiltrate. Cervical Spine CT 12/22/21 11:38 IMPRESSION: Degenerative changes. No fracture or dislocation seen. Fleischner guidelines were followed. Head CT 12/22/21 11:38 IMPRESSION: No acute findings. 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 Abdomen/Pelvis CT 12/22/21 12:57 IMPRESSION: Limited exam due to motion artifact. Gallstone in the neck of the gallbladder. Question gallbladder wall thickening and edema and small amount of pericholecystic fluid. Appearance is concerning for acute cholecystitis. Upper ventral hernia containing distal stomach. No evidence of obstruction. 1 cm enhancing lesion in the liver question representing a benign hemangioma. Fleischner guidelines were followed. Abdomen Ultrasound 12/23/21 10:11 IMPRESSION: Slightly enlarged gallbladder. Small gallstones. Slightly thickened gallbladder wall and trace pericholecystic fluid. Appearance is again concerning for cholecystitis. Normal caliber intra and extrahepatic bile ducts. No common bile duct stone seen by ultrasound. Echogenic liver. No focal liver lesion appreciated by ultrasound. Small right pleural effusion. Hepatobiliary Scan [facility] 12/25/21 14:20 IMPRESSION: Finding consistent with cystic duct obstruction up to 5 hours. Patent CBD. Normal hepatic uptake. Cholangiopancreatography MRI 12/26/21 16:40 IMPRESSION: * Mild hepatic steatosis. * There is an impacted stone in the gallbladder neck. The mild gallbladder wall thickening has improved compared to 12/22/2021. Trace pericholecystic fluid is present. If the patient has right upper quadrant pain/Ann's sign, then constellation of findings would suggest acute cholecystitis. Also, the finding of an obstructed cystic duct on hepatobiliary scan from 08/27/2022 favors diagnosis of acute cholecystitis. There is no choledocholithiasis. * A small, 1 cm T2 hyperintense focus in hepatic segment 8 is likely a hemangioma. * A ventral abdominal wall hernia contains a portion of the stomach. Assessment and Plan (1) Pneumonia: Status: Acute (2) Abnormal LFTs: Status: Acute (3) Traumatic brain injury: Status: Acute Plan hospital d#10 61yo F with dementia, TBI, gallstones sent from [facility] to hospital for AMS. Found to have LLL PNA + concern of acute cholecystitis # LLL PNA - completed 7 days of vanco, continue pip/allison d#9. BCx negative. PCT low. # cystic duct gallstone # transaminasemia - concern of acute cholecytitis but minimal symptoms and tolerating diet, though LFTs remain elevated continue pip/allison. appreciate Surgery input. will re-image with US given pt is unreliable historian # dementia - aripiprazole, lamotrigine, escitalopram # VTE ppx - LMWH In my clinical judgment, the patient requires continued hospitalization for the following reasons: IV ABX, concern for acute cholecystitis Quality Stroke Does the patient have a stroke diagnosis?: No VTE Prior VTE?: No VTE Risk Level:: Medical - moderate - high VTE Device Contraindication: Treatment Not Indicated VTE Drug Contraindication: N/A - Med Ordered
[2021-12-31 11:48] VITALS: BP 99/46; PULSE 74; RESP 18; TEMP 37.2; O2SAT 96
[2021-12-31 11:59] LABS: Iron 54 mcg/dL (30-160); Percent Iron Saturation 17 % (15-50); Total Iron Binding Capacity 325 mcg/dL (228-428); Unsaturated Iron Binding 271 ug/dL
[2021-12-31 12:22] LABS: HBS Num1 1.19 mIU/mL (0-7.99); ~HepC Num1 0.12 S/CO (0.00-0.79); ~Hepatitis B Surface Antibody NONREACTIVE (Nonreactive); ~Hepatitis C Antibody Nonreactive (Nonreactive)
[2021-12-31 12:29] LABS: HBc Num1 0.15 S/CO (0.00-0.79); Hepatitis B Core Antibody Nonreactive (Nonreactive); Hepatitis B Surface Antigen Negative (Negative)
[2021-12-31 12:38] LABS: TSH reflex Free T4 1.55 uIU/mL (0.32-4.0)
[2021-12-31 13:08] LABS: Ferritin 1631 ng/mL (10-250)
[2021-12-31 15:50] VITALS: BP 112/57; PULSE 80; RESP 17; TEMP 36.6; O2SAT 95
[2021-12-31] MEDS: Enoxaparin Sodium 40 MG/0.4 ML SYRINGE SUBCUT (17:43)
[2021-12-31 20:00] VITALS: BP 111/45; PULSE 85; RESP 17; TEMP 36.4; O2SAT 95
[2022-01-01] VITALS: BP 99/57; PULSE 82; RESP 17; TEMP 37.3; O2SAT 96
[2022-01-01 04:00] VITALS: BP 95/52; PULSE 95; RESP 17; TEMP 37.1; O2SAT 94
[2022-01-01 06:11] LABS: Hematocrit 35.4 % (37.0-47.0); Hemoglobin 11.6 g/dl (12.0-16.0); Mean Corpuscular HGB Conc 32.8 g/dl (31.0-35.0); Mean Corpuscular Hemoglobin 30.1 pg (27.0-33.0); Mean Corpuscular Volume 91.9 fL (80.0-98.0); Mean Platelet Volume 9.6 fL (9.4-12.3); Platelet Count 334 X10*3/uL (160-400); Red Blood Count 3.85 X10*6/uL (4.20-5.50); Red Cell Distribution Width 15.9 % (11.0-16.0); White Blood Count 9.7 X10*3/uL (4.8-10.8)
[2022-01-01 06:27] LABS: Alanine Aminotransferase 392 U/L (0-31); Albumin Level 3.3 g/dL (3.5-5.0); Alkaline Phosphatase 414 U/L (39-117); Anion Gap 12 (12-20); Aspartate Amino Transferase 377 U/L (5-31); Blood Urea Nitrogen 12 mg/dL (9-16); Calcium 9.1 mg/dL (8.4-10.2); Carbon Dioxide 23 mmol/L (22-29); Chloride 111 mmol/L (96-108); Creatinine Clr Calc Pharmacy 79.8; Estimated Glomerular Filt Rate > 60; Glucose Random 112 mg/dL (60-115); Potassium 4.2 mmol/L (3.3-5.1); Sodium 142 mmol/L (135-145); Total Protein 6.1 g/dL (6.5-8.0)
[2022-01-01 07:26] VITALS: BP 94/54; PULSE 68; RESP 15; TEMP 36.7; O2SAT 92
[2022-01-01] MEDS: Loratadine 10 MG TABLET PO (07:28)
[2022-01-01] MEDS: Famotidine 20 MG TABLET 40 MG PO (07:28)
[2022-01-01] MEDS: Escitalopram Oxalate 10 MG TABLET PO (07:28)
[2022-01-01] MEDS: lamoTRIgine 25 MG TABLET 150 MG PO ×2 (07:28→20:49)
[2022-01-01] MEDS: ARIPiprazole 5 MG TABLET 2.5 MG PO (07:29)
[2022-01-01] MEDS: 0.9 % Sodium Chloride Flush 3 ML SYRINGE IVFLUSH ×3 (07:29→20:57)
[2022-01-01 07:45] LABS: Hepatitis A Antibody IgM 0.22 Index (0-0.79); ~Hepatitis A Antibody IgM Nonreactive (Nonreactive)
[2022-01-01 11:30] VITALS: BP 91/48; PULSE 66; RESP 15; TEMP 36.6; O2SAT 92
--- NOTE | 2022-01-01 11:53 | MHC.CM.PN ---
CURRENTLY AWAITING U/S TO BE READ ONCE THIS IS DONE, A DISCUSSION TO BE HELD BETWEEN SURGICAL AND GI. [facility] UPDATED WITH PROGRESS NOTES AND LABS
--- NOTE | 2022-01-01 11:54 | P.PNIM_ITS ---
Subjective Subjective Date of Service: 01/01/22 Interval History: Minimal abd discomfort No cough/dyspnea Review of Systems Review of Systems: Yes all other systems are reviewed and are negative Physical Exam Vital Signs: Vital Signs: Last Vital Signs Temp 98 F 01/01/22 11:30 Pulse 66 01/01/22 11:30 Resp 15 01/01/22 11:30 BP 91/48 L 01/01/22 11:30 Pulse Ox 92 01/01/22 11:30 BMI result Body Mass Index 30.4 Gen: in no acute distress HEENT: sclera anicteric, moist mucus membranes Neck: supple Lungs: diminished L base Heart: regular rate and rhythm, no murmurs Abd: soft, slightly tender RUQ but no rebound/guarding and negative Ann sign Ext: no edema Skin: warm/well-perfused Neuro: alert, normal speech Psych: impaired insight Objective Data Active Medications Aripiprazole (Aripiprazole 5 Mg Tablet) 2.5 mg PO DAILY [facility] Last Admin: 01/01/22 07:29 Dose: 2.5 mg Documented by: JAKUB Calcium Carbonate (Calcium Carbonate 500 Mg Tablet) 500 mg PO Q8H PRN PRN Reason: Heartburn Enoxaparin Sodium (Enoxaparin Sodium 40 Mg/0.4 Ml Syringe) 40 mg SUBCUT Q24H [facility] Last Admin: 12/31/21 17:43 Dose: 40 mg Documented by: JUAN Escitalopram Oxalate (Escitalopram Oxalate 10 Mg Tablet) 10 mg PO DAILY [facility] Last Admin: 01/01/22 07:28 Dose: 10 mg Documented by: JAKUB Famotidine (Famotidine 20 Mg Tablet) 40 mg PO DAILY [facility] Last Admin: 01/01/22 07:28 Dose: 40 mg Documented by: JAKUB Lamotrigine (Lamotrigine 25 Mg Tablet) 150 mg PO BID [facility] Last Admin: 01/01/22 07:28 Dose: 150 mg Documented by: JAKUB Loperamide HCl (Loperamide Hcl 2 Mg Capsule) 2 mg PO Q6H PRN PRN Reason: Diarrhea Loratadine (Loratadine 10 Mg Tablet) 10 mg PO DAILY [facility] Last Admin: 01/01/22 07:28 Dose: 10 mg Documented by: JAKUB Senna (Sennosides 8.6 Mg Tablet) 8.6 mg PO Q24H PRN PRN Reason: Constipation Sodium Chloride (Sodium Chloride 0.65 % Nasal 44 Ml Sprbtl) 1 spray NOSTRIL-B Q8H PRN PRN Reason: Nasal Congestion Sodium Chloride (0.9 % Sodium Chloride Flush 3 Ml Syringe) 3 ml IVFLUSH QSHIFT [facility] Last Admin: 01/01/22 07:29 Dose: 3 ml Documented by: JAKUB Labs CBC & Chem 7: 01/01/22 05:42 01/01/22 05:42 Labs: Laboratory Results - last 24 hr 12/31/21 12/31/21 12/31/21 11:31 11:31 11:31 MCV MCH MCHC RDW Plt Count MPV Absolute Nucleated RBC Nucleated RBC % (auto) Anion Gap Estim Creat Clear Calc Estimated GFR Random Glucose Calcium Iron 54 TIBC 325 % Saturation 17 Unsat Iron Binding 271 Ferritin 1631 H Total Bilirubin AST ALT Alkaline Phosphatase Total Creatine Kinase 17 L Total Protein Albumin TSH 1.55 Hepatitis A IgM Ab Nonreactive Hep Bs Antigen Hep Bs Antibody Hep B Core Total Ab Hepatitis C Ab (EIA) 12/31/21 01/01/22 01/01/22 11:32 05:42 05:42 MCV 91.9 MCH 30.1 MCHC 32.8 RDW 15.9 Plt Count 334 MPV 9.6 Absolute Nucleated RBC 0.000 Nucleated RBC % (auto) 0.0 Anion Gap 12 Estim Creat Clear Calc 79.8 Estimated GFR > 60 Random Glucose 112 Calcium 9.1 Iron TIBC % Saturation Unsat Iron Binding Ferritin Total Bilirubin 1.0 AST 377 H ALT 392 H Alkaline Phosphatase 414 H Total Creatine Kinase Total Protein 6.1 L Albumin 3.3 L TSH Hepatitis A IgM Ab Hep Bs Antigen Negative Hep Bs Antibody NONREACTIVE Hep B Core Total Ab Nonreactive Hepatitis C Ab (EIA) Nonreactive Assessment and Plan (1) Pneumonia: Status: Acute (2) Abnormal LFTs: Status: Acute (3) Traumatic brain injury: Status: Acute Plan hospital d#11 61yo F with dementia, TBI, gallstones sent from [facility] to hospital for AMS. Found to have LLL PNA + concern of acute cholecystitis # LLL PNA - completed 7 days of vanco + 9 days of pip/allison. BCx negative. PCT low. # cystic duct gallstone # transaminasemia - concern of acute cholecytitis but minimal symptoms and tolerating diet, though LFTs remain elevated. US shows sludge, no gallstones. doubt acute cholecystitis. discussed with Gen Surg + GI- serologic workup, may need liver biopsy. follow LFTs - d/c'ed pip/allison + gemfibrozil # dementia - aripiprazole, lamotrigine, escitalopram # VTE ppx - LMWH In my clinical judgment, the patient requires continued hospitalization for the following reasons: IV ABX, concern for acute cholecystitis Quality Stroke Does the patient have a stroke diagnosis?: No VTE Prior VTE?: No VTE Risk Level:: Medical - moderate - high VTE Device Contraindication: Treatment Not Indicated VTE Drug Contraindication: N/A - Med Ordered
--- NOTE | 2022-01-01 14:04 | P.PNGS_ITS ---
Subjective Subjective Date of Service: 01/01/22 Interval history: Denies abdominal pain Tolerating diet Patient is a poor historian Physical Exam Vital Signs: Vital Signs: Last Vital Signs Temp 98 F 01/01/22 11:30 Pulse 66 01/01/22 11:30 Resp 15 01/01/22 11:30 BP 91/48 L 01/01/22 11:30 Pulse Ox 92 01/01/22 11:30 BMI result Body Mass Index 30.4 Const: General: comfortable and no acute distress Eyes: Sclerae: sclerae normal Resp: Effort & Inspection: normal respiratory effort Cardio: Rate: regular rate GI: Other: Soft, nontender, no guarding, no rebound, no Ann sign Objective Data Active Medications Aripiprazole (Aripiprazole 5 Mg Tablet) 2.5 mg PO DAILY [facility] Last Admin: 01/01/22 07:29 Dose: 2.5 mg Documented by: JAKUB Calcium Carbonate (Calcium Carbonate 500 Mg Tablet) 500 mg PO Q8H PRN PRN Reason: Heartburn Enoxaparin Sodium (Enoxaparin Sodium 40 Mg/0.4 Ml Syringe) 40 mg SUBCUT Q24H [facility] Last Admin: 12/31/21 17:43 Dose: 40 mg Documented by: RODNEYQC Escitalopram Oxalate (Escitalopram Oxalate 10 Mg Tablet) 10 mg PO DAILY [facility] Last Admin: 01/01/22 07:28 Dose: 10 mg Documented by: JAKUB Famotidine (Famotidine 20 Mg Tablet) 40 mg PO DAILY [facility] Last Admin: 01/01/22 07:28 Dose: 40 mg Documented by: JAKUB Lamotrigine (Lamotrigine 25 Mg Tablet) 150 mg PO BID [facility] Last Admin: 01/01/22 07:28 Dose: 150 mg Documented by: JAKUB Loperamide HCl (Loperamide Hcl 2 Mg Capsule) 2 mg PO Q6H PRN PRN Reason: Diarrhea Loratadine (Loratadine 10 Mg Tablet) 10 mg PO DAILY [facility] Last Admin: 01/01/22 07:28 Dose: 10 mg Documented by: JAKUB Senna (Sennosides 8.6 Mg Tablet) 8.6 mg PO Q24H PRN PRN Reason: Constipation Sodium Chloride (Sodium Chloride 0.65 % Nasal 44 Ml Sprbtl) 1 spray NOSTRIL-B Q8H PRN PRN Reason: Nasal Congestion Sodium Chloride (0.9 % Sodium Chloride Flush 3 Ml Syringe) 3 ml IVFLUSH QSHIFT [facility] Last Admin: 01/01/22 07:29 Dose: 3 ml Documented by: JAKUB Labs CBC & Chem 7: 01/01/22 05:42 01/01/22 05:42 Labs: Laboratory Results - last 24 hr 12/31/21 01/01/22 01/01/22 11:31 05:42 05:42 MCV 91.9 MCH 30.1 MCHC 32.8 RDW 15.9 Plt Count 334 MPV 9.6 Absolute Nucleated RBC 0.000 Nucleated RBC % (auto) 0.0 Anion Gap 12 Estim Creat Clear Calc 79.8 Estimated GFR > 60 Random Glucose 112 Calcium 9.1 Total Bilirubin 1.0 AST 377 H ALT 392 H Alkaline Phosphatase 414 H Total Protein 6.1 L Albumin 3.3 L Hepatitis A IgM Ab Nonreactive Procedures Date of Service Date of Service: 01/01/22 Progress Note: A&P Assessment and plan (1) Abnormal LFTs: Status: Acute Assessment and Plan: Has large on repeat ultrasound No cholecystitis Nontender as well Elevated AST ALT - etiology uncertain No cholecystectomy planned at this time Fall Risk Details Current Medications: Current Medications Aripiprazole (Aripiprazole 5 Mg Tablet) 2.5 mg PO DAILY [facility] Last Admin: 01/01/22 07:29 Dose: 2.5 mg Documented by: Calcium Carbonate (Calcium Carbonate 500 Mg Tablet) 500 mg PO Q8H PRN PRN Reason: Heartburn Enoxaparin Sodium (Enoxaparin Sodium 40 Mg/0.4 Ml Syringe) 40 mg SUBCUT Q24H [facility] Last Admin: 12/31/21 17:43 Dose: 40 mg Documented by: Escitalopram Oxalate (Escitalopram Oxalate 10 Mg Tablet) 10 mg PO DAILY [facility] Last Admin: 01/01/22 07:28 Dose: 10 mg Documented by: Famotidine (Famotidine 20 Mg Tablet) 40 mg PO DAILY [facility] Last Admin: 01/01/22 07:28 Dose: 40 mg Documented by: Lamotrigine (Lamotrigine 25 Mg Tablet) 150 mg PO BID [facility] Last Admin: 01/01/22 07:28 Dose: 150 mg Documented by: Loperamide HCl (Loperamide Hcl 2 Mg Capsule) 2 mg PO Q6H PRN PRN Reason: Diarrhea Loratadine (Loratadine 10 Mg Tablet) 10 mg PO DAILY [facility] Last Admin: 01/01/22 07:28 Dose: 10 mg Documented by: Senna (Sennosides 8.6 Mg Tablet) 8.6 mg PO Q24H PRN PRN Reason: Constipation Sodium Chloride (Sodium Chloride 0.65 % Nasal 44 Ml Sprbtl) 1 spray NOSTRIL-B Q8H PRN PRN Reason: Nasal Congestion Sodium Chloride (0.9 % Sodium Chloride Flush 3 Ml Syringe) 3 ml IVFLUSH QSHIFT [facility] Last Admin: 01/01/22 07:29 Dose: 3 ml Documented by: Time Spent With Patient Time: Total time spent is greater than 50% in coordination of care (as documented) at patient's floor/unit and/or counseling patient: Quality Stroke Does the patient have a stroke diagnosis?: No VTE Prior VTE?: No VTE Risk Level:: Medical - moderate - high VTE Device Contraindication: Treatment Not Indicated VTE Drug Contraindication: N/A - Med Ordered
[2022-01-01 15:01] VITALS: BP 105/53; PULSE 78; RESP 18; TEMP 36.9; O2SAT 99
[2022-01-01] MEDS: Enoxaparin Sodium 40 MG/0.4 ML SYRINGE SUBCUT (15:32)
[2022-01-01] MEDS: Sennosides 8.6 MG TABLET PO (18:32)
[2022-01-01 19:05] LABS: Appearance Urine CLEAR; Color Urine YELLOW; Glucose Urine UA NEG (NEG); Leukocyte Esterase Urine NEG (NEG); Nitrite Urine NEG (NEG); PH 5.5 (5.0-8.0); Specific Gravity - Urine >= 1.030 (1.005-1.025); Urine Blood NEG (NEG); Urine Ketones NEG (NEG); Urine Protein NEG (NEG-TRACE)
[2022-01-01 19:24] LABS: RBC Urine 0 /HPF (0); Squamous Epithelial Cell Urine 1+ /LPF; Uric Acid Crystals Urine 2+ /LPF; WBC Urine 0 /HPF (0-4)
[2022-01-01 19:44] VITALS: BP 136/76; PULSE 89; RESP 18; TEMP 37.1; O2SAT 90
[2022-01-02] VITALS: BP 127/54; PULSE 87; RESP 18; TEMP 37.4; O2SAT 92
[2022-01-02] MEDS: ondansetron HCL 4 MG/2 ML VIAL IVPUSH (03:17)
[2022-01-02 03:54] VITALS: RESP 18
[2022-01-02 06:30] LABS: Alanine Aminotransferase 364 U/L (0-31); Albumin Level 3.4 g/dL (3.5-5.0); Alkaline Phosphatase 432 U/L (39-117); Anion Gap 12 (12-20); Aspartate Amino Transferase 295 U/L (5-31); Blood Urea Nitrogen 15 mg/dL (9-16); C Reactive Protein 4.19 mg/dL (< or = 0.50); Calcium 9.5 mg/dL (8.4-10.2); Carbon Dioxide 26 mmol/L (22-29); Chloride 108 mmol/L (96-108); Creatinine Clr Calc Pharmacy 75.7; Estimated Glomerular Filt Rate > 60; Glucose Random 130 mg/dL (60-115); Sodium 142 mmol/L (135-145); Total Protein 6.2 g/dL (6.5-8.0)
[2022-01-02 08:00] VITALS: BP 100/57; PULSE 75; RESP 18; TEMP 36.1; O2SAT 92
[2022-01-02 08:42] LABS: Transglutaminase Ab IgG <1.0 U/mL; Transglutaminase IgA <1.0 U/mL
[2022-01-02] MEDS: ARIPiprazole 5 MG TABLET 2.5 MG PO (08:44)
[2022-01-02] MEDS: 0.9 % Sodium Chloride Flush 3 ML SYRINGE IVFLUSH ×3 (08:44→21:34)
[2022-01-02] MEDS: lamoTRIgine 25 MG TABLET 150 MG PO ×2 (08:45→21:30)
[2022-01-02] MEDS: Escitalopram Oxalate 10 MG TABLET PO (08:45)
[2022-01-02] MEDS: Famotidine 20 MG TABLET 40 MG PO (08:45)
[2022-01-02] MEDS: Loratadine 10 MG TABLET PO (08:45)
[2022-01-02] MEDS: Loperamide HCl 2 MG CAPSULE PO (08:45)
--- NOTE | 2022-01-02 10:22 | HO.PM.IMPN ---
Subjective Subjective Date of Service: 01/02/22 Interval History: Had some RLQ discomfort last night; better today. No N/V and tolerating diet. Had BM this AM. Review of Systems Review of Systems: Yes all other systems are reviewed and are negative Physical Exam Vital Signs: Vital Signs: Last Vital Signs Temp 97.0 F 01/02/22 08:00 Pulse 75 01/02/22 08:00 Resp 18 01/02/22 08:00 BP 100/57 L 01/02/22 08:00 Pulse Ox 92 01/02/22 08:00 BMI result Body Mass Index 30.4 Gen: in no acute distress HEENT: sclera anicteric, moist mucus membranes Neck: supple Lungs: diminished L base Heart: regular rate and rhythm, no murmurs Abd: soft, non tender, no guarding, negative Ann sign Ext: no edema Skin: warm/well-perfused Neuro: alert, normal speech Psych: impaired insight Objective Data Active Medications Aripiprazole (Aripiprazole 5 Mg Tablet) 2.5 mg PO DAILY [facility] Last Admin: 01/02/22 08:44 Dose: 2.5 mg Documented by: DEA Calcium Carbonate (Calcium Carbonate 500 Mg Tablet) 500 mg PO Q8H PRN PRN Reason: Heartburn Enoxaparin Sodium (Enoxaparin Sodium 40 Mg/0.4 Ml Syringe) 40 mg SUBCUT Q24H [facility] Last Admin: 01/01/22 15:32 Dose: 40 mg Documented by: COLMELYSSA Escitalopram Oxalate (Escitalopram Oxalate 10 Mg Tablet) 10 mg PO DAILY [facility] Last Admin: 01/02/22 08:45 Dose: 10 mg Documented by: DEA Famotidine (Famotidine 20 Mg Tablet) 40 mg PO DAILY [facility] Last Admin: 01/02/22 08:45 Dose: 40 mg Documented by: DEA Lamotrigine (Lamotrigine 25 Mg Tablet) 150 mg PO BID [facility] Last Admin: 01/02/22 08:45 Dose: 150 mg Documented by: DEA Loperamide HCl (Loperamide Hcl 2 Mg Capsule) 2 mg PO Q6H PRN PRN Reason: Diarrhea Last Admin: 01/02/22 08:45 Dose: 2 mg Documented by: DEA Loratadine (Loratadine 10 Mg Tablet) 10 mg PO DAILY [facility] Last Admin: 01/02/22 08:45 Dose: 10 mg Documented by: DEA Polyethylene Glycol (Polyethylene Glycol 3350 17 Gm Powd.Pack) 17 gm PO DAILY [facility] Last Admin: 01/02/22 08:46 Dose: Not Given Documented by: DEA Non-Admin Reason: loose stool Senna (Sennosides 8.6 Mg Tablet) 8.6 mg PO Q24H PRN PRN Reason: Constipation Last Admin: 01/01/22 18:32 Dose: 8.6 mg Documented by: VALERY Sodium Chloride (Sodium Chloride 0.65 % Nasal 44 Ml Sprbtl) 1 spray NOSTRIL-B Q8H PRN PRN Reason: Nasal Congestion Sodium Chloride (0.9 % Sodium Chloride Flush 3 Ml Syringe) 3 ml IVFLUSH QSHIFT [facility] Last Admin: 01/02/22 08:44 Dose: 3 ml Documented by: DEA Labs CBC & Chem 7: 01/01/22 05:42 01/02/22 05:57 Labs: Laboratory Results - last 24 hr 12/31/21 01/01/22 01/02/22 11:31 17:48 05:57 Anion Gap 12 Estim Creat Clear Calc 75.7 Estimated GFR > 60 Random Glucose 130 H Calcium 9.5 Total Bilirubin 1.0 AST 295 H ALT 364 H Alkaline Phosphatase 432 H C-Reactive Protein 4.19 H Total Protein 6.2 L Albumin 3.4 L Urine Color YELLOW Urine Appearance CLEAR Urine pH 5.5 Ur Specific [place] >= 1.030 H Urine Protein NEG Urine Glucose (UA) NEG Urine Ketones NEG Urine Blood NEG Urine Nitrite NEG Ur Leukocyte Esterase NEG Urine RBC 0 Urine WBC 0 Ur Squamous Epith Cells 1+ Uric Acid Crystals 2+ Urine Bacteria NONE Tiss Transglutamin IgG <1.0 Tiss Transglutamin IgA <1.0 Microbiology Microbiology Results: Microbiology 01/01/22 17:48 Urine Culture - Preliminary Urine clean catch - Urine cadet top No growth to date. Assessment and Plan (1) Pneumonia: Status: Acute (2) Abnormal LFTs: Status: Acute (3) Traumatic brain injury: Status: Acute Plan hospital d#12 61yo F with dementia, TBI, gallstones sent from [facility] to hospital for AMS. Found to have LLL PNA + concern of acute cholecystitis # LLL PNA - completed 7 days of vanco + 9 days of pip/allison. BCx negative. PCT low. # cystic duct gallstone # transaminasemia - concern of acute cholecytitis but minimal symptoms and tolerating diet, though LFTs remain elevated. US shows sludge, no gallstones. doubt acute cholecystitis. discussed with Gen Surg + GI- serologic workup, may need liver biopsy. continue to follow LFTs which are just starting to come down - d/c'ed pip/allison + gemfibrozil # dementia - aripiprazole, lamotrigine, escitalopram # VTE ppx - LMWH In my clinical judgment, the patient requires continued hospitalization for the following reasons: LFT monitoring Quality Stroke Does the patient have a stroke diagnosis?: No VTE Prior VTE?: No VTE Risk Level:: Medical - moderate - high VTE Device Contraindication: Treatment Not Indicated VTE Drug Contraindication: N/A - Med Ordered
[2022-01-02 11:43] VITALS: BP 99/48; PULSE 74; RESP 18; TEMP 36.7; O2SAT 93
[2022-01-02 12:01] LABS: Ceruloplasmin 42 mg/dL (18-53)
[2022-01-02 15:42] VITALS: BP 106/43; PULSE 72; RESP 16; TEMP 36.4; O2SAT 91
[2022-01-02] MEDS: Enoxaparin Sodium 40 MG/0.4 ML SYRINGE SUBCUT (16:55)
[2022-01-02 19:23] VITALS: BP 103/47; PULSE 75; RESP 16; TEMP 37; O2SAT 91
[2022-01-03] VITALS (7 sets, daily range): BP systolic 93–110; BP diastolic 50–58; PULSE 61–73; RESP 16–18; TEMP 36.6–37.1; O2SAT 92–96
[2022-01-03 06:07] LABS: Hemoglobin 12.1 g/dl (12.0-16.0); Mean Corpuscular Hemoglobin 28.8 pg (27.0-33.0); Mean Corpuscular Volume 92.9 fL (80.0-98.0); Mean Platelet Volume 9.5 fL (9.4-12.3); Platelet Count 443 X10*3/uL (160-400); Red Cell Distribution Width 15.2 % (11.0-16.0); White Blood Count 10.3 X10*3/uL (4.8-10.8)
[2022-01-03 06:49] LABS: Alanine Aminotransferase 366 U/L (0-31); Albumin Level 3.5 g/dL (3.5-5.0); Alkaline Phosphatase 421 U/L (39-117); Anion Gap 13 (12-20); Aspartate Amino Transferase 324 U/L (5-31); Bilirubin Total 1.1 mg/dL (0.0-1.0); Blood Urea Nitrogen 16 mg/dL (9-16); Calcium 9.6 mg/dL (8.4-10.2); Carbon Dioxide 26 mmol/L (22-29); Chloride 108 mmol/L (96-108); Creatinine Clr Calc Pharmacy 73.8; Estimated Glomerular Filt Rate > 60; Glucose Random 95 mg/dL (60-115); Potassium 4.6 mmol/L (3.3-5.1); Sodium 142 mmol/L (135-145); Total Protein 6.5 g/dL (6.5-8.0)
[2022-01-03] MEDS: ARIPiprazole 5 MG TABLET 2.5 MG PO (09:31)
[2022-01-03] MEDS: Loratadine 10 MG TABLET PO (09:33)
[2022-01-03] MEDS: Famotidine 20 MG TABLET 40 MG PO (09:33)
[2022-01-03] MEDS: lamoTRIgine 25 MG TABLET 150 MG PO ×2 (09:33→21:51)
[2022-01-03] MEDS: Escitalopram Oxalate 10 MG TABLET PO (09:33)
[2022-01-03] MEDS: 0.9 % Sodium Chloride Flush 3 ML SYRINGE IVFLUSH ×3 (09:34→21:55)
[2022-01-03] MEDS: polyethylene glycoL 3350 17 GM POWD.PACK PO (09:34)
--- NOTE | 2022-01-03 10:05 | P.PNIM_ITS ---
Subjective Subjective Date of Service: 01/03/22 Interval History: No abd pain Eating well No fever Review of Systems Review of Systems: Yes all other systems are reviewed and are negative Physical Exam Vital Signs: Vital Signs: Last Vital Signs Temp 98.4 F 01/03/22 07:55 Pulse 67 01/03/22 07:55 Resp 18 01/03/22 07:55 BP 93/54 L 01/03/22 07:55 Pulse Ox 96 01/03/22 07:55 BMI result Body Mass Index 30.4 Gen: in no acute distress HEENT: sclera anicteric, moist mucus membranes Neck: supple Lungs: CTAB Heart: regular rate and rhythm, no murmurs Abd: soft, non tender, no guarding, negative Ann sign Ext: no edema Skin: warm/well-perfused Neuro: alert, normal speech Psych: impaired insight Objective Data Active Medications Aripiprazole (Aripiprazole 5 Mg Tablet) 2.5 mg PO DAILY [facility] Last Admin: 01/03/22 09:31 Dose: 2.5 mg Documented by: DORI Calcium Carbonate (Calcium Carbonate 500 Mg Tablet) 500 mg PO Q8H PRN PRN Reason: Heartburn Enoxaparin Sodium (Enoxaparin Sodium 40 Mg/0.4 Ml Syringe) 40 mg SUBCUT Q24H [facility] Last Admin: 01/02/22 16:55 Dose: 40 mg Documented by: DEA Escitalopram Oxalate (Escitalopram Oxalate 10 Mg Tablet) 10 mg PO DAILY [facility] Last Admin: 01/03/22 09:33 Dose: 10 mg Documented by: DORI Famotidine (Famotidine 20 Mg Tablet) 40 mg PO DAILY [facility] Last Admin: 01/03/22 09:33 Dose: 40 mg Documented by: DROI Lamotrigine (Lamotrigine 25 Mg Tablet) 150 mg PO BID [facility] Last Admin: 01/03/22 09:33 Dose: 150 mg Documented by: DORI Loperamide HCl (Loperamide Hcl 2 Mg Capsule) 2 mg PO Q6H PRN PRN Reason: Diarrhea Last Admin: 01/02/22 08:45 Dose: 2 mg Documented by: DEA Loratadine (Loratadine 10 Mg Tablet) 10 mg PO DAILY [facility] Last Admin: 01/03/22 09:33 Dose: 10 mg Documented by: DORI Polyethylene Glycol (Polyethylene Glycol 3350 17 Gm Powd.Pack) 17 gm PO DAILY [facility] Last Admin: 01/03/22 09:34 Dose: 17 gm Documented by: DORI Senna (Sennosides 8.6 Mg Tablet) 8.6 mg PO Q24H PRN PRN Reason: Constipation Last Admin: 01/01/22 18:32 Dose: 8.6 mg Documented by: COLMELYSSA Sodium Chloride (Sodium Chloride 0.65 % Nasal 44 Ml Sprbtl) 1 spray NOSTRIL-B Q8H PRN PRN Reason: Nasal Congestion Sodium Chloride (0.9 % Sodium Chloride Flush 3 Ml Syringe) 3 ml IVFLUSH QSHIFT [facility] Last Admin: 01/03/22 09:34 Dose: 3 ml Documented by: DORI Labs CBC & Chem 7: 01/03/22 05:41 01/03/22 05:41 Labs: Laboratory Results - last 24 hr 12/31/21 01/03/22 01/03/22 11:31 05:41 05:41 MCV 92.9 MCH 28.8 MCHC 31.0 RDW 15.2 Plt Count 443 H D MPV 9.5 Absolute Nucleated RBC 0.000 Nucleated RBC % (auto) 0.0 Anion Gap 13 Estim Creat Clear Calc 73.8 Estimated GFR > 60 Random Glucose 95 Calcium 9.6 Total Bilirubin 1.1 H AST 324 H ALT 366 H Alkaline Phosphatase 421 H Total Protein 6.5 Albumin 3.5 Ceruloplasmin 42 Microbiology Microbiology Results: Microbiology 01/01/22 17:48 Urine Culture - Final Urine clean catch - Urine cadet top No growth. Assessment and Plan (1) Pneumonia: Status: Acute (2) Abnormal LFTs: Status: Acute (3) Traumatic brain injury: Status: Acute Plan hospital d#13 61yo F with dementia, TBI, gallstones sent from [facility] to hospital for AMS. Found to have LLL PNA + elevated transaminases # LLL PNA - completed 7 days of vanco + 9 days of pip/allison. BCx negative. PCT low. # cystic duct gallstone # transaminasemia - concern of acute cholecytitis but minimal symptoms and tolerating diet, though LFTs remain elevated. repeat US shows sludge, no gallstones. doubt acute cholecystitis. discussed with Gen Surg + GI- serologic workup pending, may need liver biopsy. continue to follow LFTs which are still elevated - d/c'ed pip/allison + gemfibrozil # dementia - aripiprazole, lamotrigine, escitalopram # VTE ppx - LMWH In my clinical judgment, the patient requires continued hospitalization for the following reasons: LFT monitoring Quality Stroke Does the patient have a stroke diagnosis?: No VTE Prior VTE?: No VTE Risk Level:: Medical - moderate - high VTE Device Contraindication: Treatment Not Indicated VTE Drug Contraindication: N/A - Med Ordered
[2022-01-03] MEDS: Enoxaparin Sodium 40 MG/0.4 ML SYRINGE SUBCUT (16:14)
[2022-01-04 04:00] VITALS: BP 100/53; PULSE 91; RESP 16; TEMP 37.2; O2SAT 96
[2022-01-04 06:07] LABS: Alanine Aminotransferase 326 U/L (0-31); Albumin Level 3.5 g/dL (3.5-5.0); Alkaline Phosphatase 384 U/L (39-117); Anion Gap 14 (12-20); Aspartate Amino Transferase 281 U/L (5-31); Bilirubin Total 0.8 mg/dL (0.0-1.0); Blood Urea Nitrogen 17 mg/dL (9-16); Calcium 9.8 mg/dL (8.4-10.2); Carbon Dioxide 26 mmol/L (22-29); Chloride 108 mmol/L (96-108); Creatinine Clr Calc Pharmacy 70.3; Estimated Glomerular Filt Rate > 60; Glucose Random 109 mg/dL (60-115); Potassium 4.6 mmol/L (3.3-5.1); Sodium 143 mmol/L (135-145); Total Protein 6.3 g/dL (6.5-8.0)
[2022-01-04 07:31] VITALS: BP 100/51; PULSE 67; RESP 18; TEMP 37.6; O2SAT 93
[2022-01-04] MEDS: lamoTRIgine 25 MG TABLET 150 MG PO ×2 (09:20→19:35)
[2022-01-04] MEDS: ARIPiprazole 5 MG TABLET 2.5 MG PO (09:20)
[2022-01-04] MEDS: Famotidine 20 MG TABLET 40 MG PO (09:21)
[2022-01-04] MEDS: 0.9 % Sodium Chloride Flush 3 ML SYRINGE IVFLUSH ×3 (09:21→19:34)
[2022-01-04] MEDS: Escitalopram Oxalate 10 MG TABLET PO (09:21)
[2022-01-04] MEDS: Loratadine 10 MG TABLET PO (09:21)
--- NOTE | 2022-01-04 09:25 | HO.PM.IMPN ---
Subjective Subjective Date of Service: 01/04/22 Interval History: Denies abd pain, nausea, or vomiting. No fever. Review of Systems Review of Systems: Yes all other systems are reviewed and are negative Physical Exam Vital Signs: Vital Signs: Last Vital Signs Temp 99.7 F 01/04/22 07:31 Pulse 67 01/04/22 07:31 Resp 18 01/04/22 07:31 BP 100/51 L 01/04/22 07:31 Pulse Ox 93 01/04/22 07:31 BMI result Body Mass Index 30.4 Gen: in no acute distress HEENT: sclera anicteric, moist mucus membranes Neck: supple Lungs: CTAB Heart: regular rate and rhythm, no murmurs Abd: soft, non tender, no guarding, negative Ann sign Ext: no edema Skin: warm/well-perfused Neuro: alert, normal speech Psych: impaired insight Objective Data Active Medications Aripiprazole (Aripiprazole 5 Mg Tablet) 2.5 mg PO DAILY [facility] Last Admin: 01/04/22 09:20 Dose: 2.5 mg Documented by: DEA Calcium Carbonate (Calcium Carbonate 500 Mg Tablet) 500 mg PO Q8H PRN PRN Reason: Heartburn Enoxaparin Sodium (Enoxaparin Sodium 40 Mg/0.4 Ml Syringe) 40 mg SUBCUT Q24H [facility] Last Admin: 01/03/22 16:14 Dose: 40 mg Documented by: DORI Escitalopram Oxalate (Escitalopram Oxalate 10 Mg Tablet) 10 mg PO DAILY [facility] Last Admin: 01/04/22 09:21 Dose: 10 mg Documented by: DEA Famotidine (Famotidine 20 Mg Tablet) 40 mg PO DAILY [facility] Last Admin: 01/04/22 09:21 Dose: 40 mg Documented by: DEA Lamotrigine (Lamotrigine 25 Mg Tablet) 150 mg PO BID [facility] Last Admin: 01/04/22 09:20 Dose: 150 mg Documented by: DEA Loperamide HCl (Loperamide Hcl 2 Mg Capsule) 2 mg PO Q6H PRN PRN Reason: Diarrhea Last Admin: 01/02/22 08:45 Dose: 2 mg Documented by: DEA Loratadine (Loratadine 10 Mg Tablet) 10 mg PO DAILY [facility] Last Admin: 01/04/22 09:21 Dose: 10 mg Documented by: DEA Polyethylene Glycol (Polyethylene Glycol 3350 17 Gm Powd.Pack) 17 gm PO DAILY [facility] Last Admin: 01/04/22 09:21 Dose: Not Given Documented by: DEA Non-Admin Reason: loose stool Senna (Sennosides 8.6 Mg Tablet) 8.6 mg PO Q24H PRN PRN Reason: Constipation Last Admin: 01/01/22 18:32 Dose: 8.6 mg Documented by: COLMELYSSA Sodium Chloride (Sodium Chloride 0.65 % Nasal 44 Ml Sprbtl) 1 spray NOSTRIL-B Q8H PRN PRN Reason: Nasal Congestion Sodium Chloride (0.9 % Sodium Chloride Flush 3 Ml Syringe) 3 ml IVFLUSH QSHIFT [facility] Last Admin: 01/04/22 09:21 Dose: 3 ml Documented by: DEA Labs CBC & Chem 7: 01/03/22 05:41 01/04/22 05:21 Labs: Laboratory Results - last 24 hr 01/04/22 05:21 Anion Gap 14 Estim Creat Clear Calc 70.3 Estimated GFR > 60 Random Glucose 109 Calcium 9.8 Total Bilirubin 0.8 AST 281 H ALT 326 H Alkaline Phosphatase 384 H C-Reactive Protein 3.60 H Total Protein 6.3 L Albumin 3.5 Microbiology Microbiology Results: Microbiology 01/01/22 17:48 Urine Culture - Final Urine clean catch - Urine cadet top No growth. Assessment and Plan (1) Pneumonia: Status: Acute (2) Abnormal LFTs: Status: Acute (3) Traumatic brain injury: Status: Acute Plan hospital d#14 61yo F with dementia, TBI, gallstones sent from [facility] to hospital for AMS. Found to have LLL PNA + elevated transaminases # LLL PNA - completed 7 days of vanco + 9 days of pip/allison. BCx negative. PCT low. # cystic duct gallstone # transaminasemia - concern of acute cholecytitis but minimal symptoms and tolerating diet, though LFTs remain elevated. repeat US shows sludge, no gallstones. doubt acute cholecystitis. discussed with Gen Surg + GI- serologic workup pending, may need liver biopsy. outpt GI f/u. LFTs finally trending downwards; recheck in AM - d/c'ed pip/allison + gemfibrozil # dementia - aripiprazole, lamotrigine, escitalopram # VTE ppx - LMWH In my clinical judgment, the patient requires continued hospitalization for the following reasons: LFT monitoring. Possible d/c tomrrow if LFTs continue to trend down Quality Stroke Does the patient have a stroke diagnosis?: No VTE Prior VTE?: No VTE Risk Level:: Medical - moderate - high VTE Device Contraindication: Treatment Not Indicated VTE Drug Contraindication: N/A - Med Ordered
[2022-01-04 11:31] VITALS: BP 108/53; PULSE 75; RESP 18; TEMP 37.1; O2SAT 94
--- NOTE | 2022-01-04 14:48 | MHC.CM.PN ---
NURSE ROOM SERVICE WAITER/WAITRESS NOTE ELECTRONIC MEDICAL RECORD REVIEWE;(PNA, ABNORMAL LFTS TRAUMATIC BRAIN INJURY DEMNTIA SENT FROM [facility], FOUND TO HAVE HAD ELEVATED TRANSAMINASES CYSTIC GALLSTONES . CONTINUING TO MONITOR ALL LABS PLANN FOR DISCHARGE TOMORROW BACK TO [facility] [place] IF LFTS ARE OK
[2022-01-04 15:43] VITALS: BP 93/58; PULSE 71; RESP 18; TEMP 37.1; O2SAT 98
--- NOTE | 2022-01-04 16:19 | MHC.CM.PN ---
PER MD ROUNDS, PLAN IS TO DC TOMORROW BACK TO [facility]
[2022-01-04 16:51] LABS: Mitochondrial Antibodies NEGATIVE (NEGATIVE)
[2022-01-04] MEDS: Enoxaparin Sodium 40 MG/0.4 ML SYRINGE SUBCUT (16:54)
[2022-01-04 18:56] VITALS: BP 93/52; PULSE 71; RESP 18; TEMP 37; O2SAT 96
[2022-01-04 22:51] LABS: Immunoglobulin G Subclass 1 404 mg/dL (382-929); Immunoglobulin G Subclass 2 129 mg/dL (241-700); Immunoglobulin G Subclass 3 32 mg/dL (22-178); Immunoglobulin G Subclass 4 9.2 mg/dL (4-86); Immunoglobulin G Total 645 mg/dL (600-1640)
[2022-01-04 23:39] VITALS: BP 99/58; PULSE 72; RESP 14; TEMP 36.1; O2SAT 96
[2022-01-05 04:00] VITALS: BP 111/56; PULSE 75; RESP 20; TEMP 36.2; O2SAT 97
[2022-01-05 06:14] LABS: Hematocrit 37.8 % (37.0-47.0); Hemoglobin 11.9 g/dl (12.0-16.0); Mean Corpuscular HGB Conc 31.5 g/dl (31.0-35.0); Mean Corpuscular Hemoglobin 28.9 pg (27.0-33.0); Mean Corpuscular Volume 91.7 fL (80.0-98.0); Mean Platelet Volume 9.1 fL (9.4-12.3); Platelet Count 474 X10*3/uL (160-400); Red Blood Count 4.12 X10*6/uL (4.20-5.50); Red Cell Distribution Width 14.8 % (11.0-16.0)
[2022-01-05 06:35] LABS: Anion Gap 13 (12-20); Aspartate Amino Transferase 230 U/L (5-31); Bilirubin Total 0.9 mg/dL (0.0-1.0); Blood Urea Nitrogen 13 mg/dL (9-16); Calcium 9.6 mg/dL (8.4-10.2); Carbon Dioxide 28 mmol/L (22-29); Chloride 109 mmol/L (96-108); Creatinine Clr Calc Pharmacy 68.7; Estimated Glomerular Filt Rate > 60; Glucose Random 108 mg/dL (60-115); Potassium 4.5 mmol/L (3.3-5.1); Sodium 145 mmol/L (135-145)
[2022-01-05 06:36] LABS: Alanine Aminotransferase 299 U/L (0-31); Albumin Level 3.5 g/dL (3.5-5.0); Alkaline Phosphatase 390 U/L (39-117); Total Protein 6.3 g/dL (6.5-8.0)
[2022-01-05 07:19] VITALS: BP 99/51; PULSE 68; RESP 17; TEMP 36.4; O2SAT 96
[2022-01-05] MEDS: lamoTRIgine 25 MG TABLET 150 MG PO (08:02)
[2022-01-05] MEDS: Loratadine 10 MG TABLET PO (08:04)
[2022-01-05] MEDS: Famotidine 20 MG TABLET 40 MG PO (08:04)
[2022-01-05] MEDS: ARIPiprazole 5 MG TABLET 2.5 MG PO (08:05)
[2022-01-05] MEDS: Escitalopram Oxalate 10 MG TABLET PO (08:06)
[2022-01-05 08:42] LABS: COVID-19 Test Negative (Negative)
[2022-01-05 11:12] VITALS: BP 101/51; PULSE 66; RESP 15; TEMP 36.1; O2SAT 95
--- NOTE | 2022-01-05 11:19 | P.DS_ITS ---
DS: Providers Provider Date of Service: 01/05/22 Date of admission: 12/22/21 15:13 Date of discharge: 01/05/22 Primary care physician: Christian Hicks DO Admitting clinician: Christian Hicks Consults: 12/24/21 07:49 Consult to Gastroenterology Routine Consulting Provider: Jeffrey Nuno Reason for consultation: ABN Lfts Has provider been notified: No 12/27/21 07:25 Consult to General Surgery Routine Consulting Provider: Amrik Arauz Reason for consultation: Impacted stone in gallbag neck by MRCP Has provider been notified: Yes DS: Diagnosis Discharge Diagnosis (1) Pneumonia: Status: Acute (2) Abnormal LFTs: Status: Acute (3) Gallbladder sludge: Status: Acute DS: Summary Hospital Course Hospital Course: from admission H+P, 12/22/21, by hospitalist [and patient's primary care doctor] Christian Hicks DO: 61-year-old female who was sent to the emergency department from her care facility for evaluation of altered mental status.? The nursing facility reports that the patient fell approximately 1 week prior with possible head injury.? Today, the patient appeared to be unsteady and altered with slurred speech.?? this is a change per [facility] staff.? Workup in the emergency room including CT of head neck and chest x-ray demonstrated a left lower lobe infiltrate; CT of abdomen demonstrated a stone in the common duct however patient was seen by surgery and this was felt not to be an acute issue.? She will be admitted for treatment of pneumonia. This 61 year -old woman with dementia and TBI was sent from [facility] to hospital for altered mental status. She?was ound to have LLL PNA + elevated transaminases. For the former, she completed 7 days of vancomycin and 9 days of piperacillin/tazobactam for HCAP. Blood culturese were negative. She was weaned off supplemental oxygen on the 2nd day of hospitalization. As for the transaminasemia, there was concern for acute cholecystitis with cystic duct obstruction on HIDA scan. Gastroenterology and General Surgery were consulted. It was felt that acute cholecystitis was unlikely in the absence of significant RUQ pain or tenderness and with her tolerating a solid diet without any pain. A repeat US showed gallbladder sludge but no stone. It is possible that she passed a gallstone. Her LFTs plateaued and started to decrease. In the meanwhile, serologic workup was pursued [negative to date; anti-mitochondrial and anti-LKM antibodies pending, though] and gemfibrozil was discontinued. She was discharged back to [facility] with instructions to repeat LFTs in 1 week and to follow up with GI in 2 weeks. Time Spent with Patient Time attestation: Total time spent providing and/or coordinating discharge services: 40 Discharge coordination time: Greater than 30 minutes Quality: Safe Use of Opioids Does Pt have an Active Cancer Diagnosis on the Problem List?: No Quality: Stroke Does the patient have a stroke diagnosis?: No Physical Exam Vital Signs: Vital Signs: Last Vital Signs Temp 96.9 F 01/05/22 11:12 Pulse 66 01/05/22 11:12 Resp 15 01/05/22 11:12 BP 101/51 L 01/05/22 11:12 Pulse Ox 95 01/05/22 11:12 BMI result Body Mass Index 30.4 Gen: in no acute distress HEENT: sclera anicteric, moist mucus membranes Neck: supple Lungs: CTAB Heart: regular rate and rhythm, no murmurs Abd: soft, non tender, no guarding, negative Ann sign, slightly obese Ext: no edema Skin: warm/well-perfused Neuro: alert, normal speech Psych: impaired insight DS: Data Data Completed and Pending Completed studies during hospitalization [Text1]: Laboratory Results WBC 8.0 X10*3/uL (4.8-10.8) 01/05/22 05:59 RBC 4.12 X10*6/uL (4.20-5.50) L 01/05/22 05:59 Hgb 11.9 g/dl (12.0-16.0) L 01/05/22 05:59 Hct 37.8 % (37.0-47.0) 01/05/22 05:59 MCV 91.7 fL (80.0-98.0) 01/05/22 05:59 MCH 28.9 pg (27.0-33.0) 01/05/22 05:59 MCHC 31.5 g/dl (31.0-35.0) 01/05/22 05:59 RDW 14.8 % (11.0-16.0) 01/05/22 05:59 Plt Count 474 X10*3/uL (160-400) H 01/05/22 05:59 MPV 9.1 fL (9.4-12.3) L 01/05/22 05:59 Immature Gran % (Auto) Cancelled 12/30/21 05:23 Neut % (Auto) Cancelled 12/30/21 05:23 Lymph % (Auto) Cancelled 12/30/21 05:23 [place] % (Auto) Cancelled 12/30/21 05:23 Eos % (Auto) Cancelled 12/30/21 05:23 Baso % (Auto) Cancelled 12/30/21 05:23 Lymph # (Auto) Cancelled 12/30/21 05:23 Turner # (Auto) Cancelled 12/30/21 05:23 Eos # (Auto) Cancelled 12/30/21 05:23 Baso # (Auto) Cancelled 12/30/21 05:23 Abs Immat Gran (auto) Cancelled 12/30/21 05:23 Absolute Neuts (auto) Cancelled 12/30/21 05:23 Absolute Nucleated RBC 0.000 X10*3/uL (0.0-0.012) 01/05/22 05:59 Nucleated RBC % (auto) 0.0 /100WBC (0.0-0.2) 01/05/22 05:59 Smear Tech's Comments VERIFIED 12/29/21 05:36 Sodium 145 mmol/L (135-145) 01/05/22 05:59 Potassium 4.5 mmol/L (3.3-5.1) 01/05/22 05:59 Chloride 109 mmol/L (96-108) H 01/05/22 05:59 Carbon Dioxide 28 mmol/L (22-29) 01/05/22 05:59 Anion Gap 13 (12-20) 01/05/22 05:59 BUN 13 mg/dL (9-16) 01/05/22 05:59 Creatinine 0.86 mg/dL (0.5-1.4) 01/05/22 05:59 Estim Creat Clear Calc 68.7 01/05/22 05:59 Estimated GFR > 60 01/05/22 05:59 Random Glucose 108 mg/dL (60-115) 01/05/22 05:59 Fasting Glucose 118 mg/dL (60-99) H 12/30/21 05:23 Lactic Acid 1.9 mmol/L (0.5-2.0) 12/22/21 10:27 Calcium 9.6 mg/dL (8.4-10.2) 01/05/22 05:59 Iron 54 mcg/dL (30-160) 12/31/21 11:31 TIBC 325 mcg/dL (228-428) 12/31/21 11:31 % Saturation 17 % (15-50) 12/31/21 11:31 Unsat Iron Binding 271 ug/dL 12/31/21 11:31 Ferritin 1631 ng/mL (10-250) H 12/31/21 11:31 Total Bilirubin 0.9 mg/dL (0.0-1.0) 01/05/22 05:59 Direct Bilirubin 0.8 mg/dL (0.0-0.5) H 12/27/21 05:40 AST 230 U/L (5-31) H 01/05/22 05:59 ALT 299 U/L (0-31) H 01/05/22 05:59 Alkaline Phosphatase 390 U/L (39-117) H 01/05/22 05:59 Total Creatine Kinase 17 U/L (26-140) L 12/31/21 11:31 C-Reactive Protein 2.50 mg/dL (< or = 0.50) H 01/05/22 05:59 Total Protein 6.3 g/dL (6.5-8.0) L 01/05/22 05:59 Albumin 3.5 g/dL (3.5-5.0) 01/05/22 05:59 Ceruloplasmin 42 mg/dL (18-53) 12/31/21 11:31 Lipase 72 U/L (8-78) 12/22/21 10:27 Procalcitonin 0.38 ng/mL 12/29/21 05:36 TSH 1.55 uIU/mL (0.32-4.0) 12/31/21 11:31 Urine Color YELLOW 01/01/22 17:48 Urine Appearance CLEAR 01/01/22 17:48 Urine pH 5.5 (5.0-8.0) 01/01/22 17:48 Ur Specific [place] >= 1.030 (1.005-1.025) H 01/01/22 17:48 Urine Protein NEG MG/DL (NEG-TRACE) 01/01/22 17:48 Urine Glucose (UA) NEG MG/DL (NEG) 01/01/22 17:48 Urine Ketones NEG MG/DL (NEG) 01/01/22 17:48 Urine Blood NEG (NEG) 01/01/22 17:48 Urine Nitrite NEG (NEG) 01/01/22 17:48 Ur Leukocyte Esterase NEG (NEG) 01/01/22 17:48 Urine RBC 0 /HPF (0) 01/01/22 17:48 Urine WBC 0 /HPF (0-4) 01/01/22 17:48 Ur Squamous Epith Cells 1+ /LPF 01/01/22 17:48 Uric Acid Crystals 2+ /LPF 01/01/22 17:48 Urine Bacteria NONE /LPF 01/01/22 17:48 Vancomycin Trough 13.9 mcg/mL (10.0-20.0) 12/30/21 02:55 IgG Total 645 mg/dL (600-1640) 12/31/21 11:31 IgG Subclass 1 404 mg/dL (382-929) 12/31/21 11:31 IgG Subclass 2 129 mg/dL (241-700) L 12/31/21 11:31 IgG Subclass 3 32 mg/dL (22-178) 12/31/21 11:31 IgG Subclass 4 9.2 mg/dL (4-86) 12/31/21 11:31 Anti-Mitochondrial Ab NEGATIVE (NEGATIVE) 12/31/21 11:31 Tiss Transglutamin IgG <1.0 U/mL 12/31/21 11:31 Tiss Transglutamin IgA <1.0 U/mL 12/31/21 11:31 COVID-19 (OK) Negative (Negative) 01/05/22 08:00 COVID-19 Clin Com See Note 01/05/22 08:00 Hepatitis A IgM Ab Nonreactive (Nonreactive) 12/31/21 11:31 Hep Bs Antigen Negative (Negative) 12/31/21 11:32 Hep Bs Antibody NONREACTIVE (Nonreactive) 12/31/21 11:32 Hep B Core Total Ab Nonreactive (Nonreactive) 12/31/21 11:32 Hepatitis C Ab (EIA) Nonreactive (Nonreactive) 12/31/21 11:32 Impressions Chest X-Ray 12/22/21 11:26 IMPRESSION: Question left base infiltrate. Cervical Spine CT 12/22/21 11:38 IMPRESSION: Degenerative changes. No fracture or dislocation seen. Fleischner guidelines were followed. Head CT 12/22/21 11:38 IMPRESSION: No acute findings. 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 Abdomen/Pelvis CT 12/22/21 12:57 IMPRESSION: Limited exam due to motion artifact. Gallstone in the neck of the gallbladder. Question gallbladder wall thickening and edema and small amount of pericholecystic fluid. Appearance is concerning for acute cholecystitis. Upper ventral hernia containing distal stomach. No evidence of obstruction. 1 cm enhancing lesion in the liver question representing a benign hemangioma. Fleischner guidelines were followed. Hepatobiliary Scan Nuclear Medicine 12/25/21 14:20 IMPRESSION: Finding consistent with cystic duct obstruction up to 5 hours. Patent CBD. Normal hepatic uptake. Cholangiopancreatography MRI 12/26/21 16:40 IMPRESSION: * Mild hepatic steatosis. * There is an impacted stone in the gallbladder neck. The mild gallbladder wall thickening has improved compared to 12/22/2021. Trace pericholecystic fluid is present. If the patient has right upper quadrant pain/Ann's sign, then constellation of findings would suggest acute cholecystitis. Also, the finding of an obstructed cystic duct on hepatobiliary scan from 08/27/2022 favors diagnosis of acute cholecystitis. There is no choledocholithiasis. * A small, 1 cm T2 hyperintense focus in hepatic segment 8 is likely a hemangioma. * A ventral abdominal wall hernia contains a portion of the stomach. Abdomen Ultrasound 12/31/21 16:00 IMPRESSION: Enlarged gallbladder and thickened gallbladder wall. Dependent echogenic material in the gallbladder suggestive of sludge. This does not demonstrate acoustic shadowing to confirm a stone. Suggested stone in the gallbladder neck is not appreciated. Echogenic liver, probably representing mild fatty infiltration. No biliary duct dilatation. Small amount of ascites adjacent to the liver. Normal liver Doppler exam. Doppler Study Ultrasound 12/31/21 16:00 IMPRESSION: Enlarged gallbladder and thickened gallbladder wall. Dependent echogenic material in the gallbladder suggestive of sludge. This does not demonstrate acoustic shadowing to confirm a stone. Suggested stone in the gallbladder neck is not appreciated. Echogenic liver, probably representing mild fatty infiltration. No biliary duct dilatation. Small amount of ascites adjacent to the liver. Normal liver Doppler exam. Pending studies at discharge: 12/31/21: anti-mitochondrial antibody, anti-LKM antibody Discharge Plan Discharge Patient Disposition: er [facility] Discharge Diagnosis: pneumonia, transaminasemia Referrals: [facility] [Outside] - 1 Week Jeffrey Nuno MD [Physician] - 2 Weeks Christian Hicks DO [Primary Care Provider] - 1 Week Discharge Medications: Continued lamotrigine 150 mg Tablet 150 mg PO BID 0RF cetirizine 10 mg Tablet 10 mg PO DAILY 0RF clozapine [Clozaril] 100 mg Tablet 100 mg PO BEDTIME 0RF oxycodone-acetaminophen 5-325 mg Tablet 1 tab PO Q4H PRN (Reason: Pain) 0RF citalopram 20 mg Tablet 20 mg PO DAILY 0RF calcium carbonate 500 mg calcium (1,250 mg) Tablet,Chewable 500 mg PO Q8H PRN (Reason: Heartburn) 0RF aripiprazole [Abilify] 5 mg Tablet 2.5 mg PO DAILY 0RF acetaminophen 325 mg tablet 650 mg PO Q6H PRN (Reason: Pain) 0RF famotidine 40 mg tablet 40 mg PO DAILY 0RF ibuprofen 600 mg tablet 600 mg PO Q8H PRN (Reason: Pain) 0RF loperamide 2 mg capsule 2 mg PO Q6H PRN (Reason: Diarrhea) 0RF sodium chloride [[place] Nasal] 0.65 % aerosol,spray 1 spray intranasal Q8H PRN (Reason: Nasal Congestion) 0RF omeprazole 20 mg capsule,delayed release(DR/EC) 20 mg PO DAILY 0RF sennosides [Natural Senna Laxative] 8.6 mg tablet 8.6 mg PO Q24H PRN (Reason: Constipation) 0RF Discontinued gemfibrozil 600 mg tablet 600 mg PO BID 0RF Discharge Orders: Discharge Order (Routine); Ordered 01/05/22 Ordered By: Mariama Vizcaino Diet: low fat, low cholesterol Activity on Discharge: As tolerated Stand Alone Forms: Patient Portal Discharge page Other Ambulatory Orders: Liver Panel (Routine) Timeframe: 1 Week Facility: [facility] - Location: Laboratory Ordered By: Mariama Vizcaino Care Plan Goals: liver health Health Concerns: pneumonia, transaminasemia Plan of Treatment: antibiotics have been completed discontinue gemfibrozil recheck LFTs in 1 week and follow up with Dr Jeffrey Nuno from [facility] [facility] Gastroenterology in 2 weeks Assessment: see Discharge Summary Patient Instructions: Pneumonia (DC)
--- NOTE | 2022-01-05 11:32 | MHC.CM.PN ---
PATIENT TO RETURN TO [facility]. TRANSPORT REQUESTED FOR 1300. RN AND UNIT AWARE OF PLAN. IMM 01/04/22IN CHART SISTER VITO ([phone]) AWARE
[2022-01-05 21:52] LABS: Smooth Muscle Antibody <20 U (<20)
[2022-01-07 14:41] LABS: Liver Kidney Microsomal Ab <=20.0 U (<=20.0)
== END 2022-01-05 13:10 | disposition skilled nursing facility (03) | DRG 195 ==
LOC: HO.ED 14:57 → HO.EDOVER 16:21 → HO.S3 12-23 15:52
PROVIDERS: Admitting Provider Hospitalist; Emergency Provider Emergency Medicine Emergency Medical Services; PCP Hospitalist; Visit Provider Family Medicine
DX: J18.9 Pneumonia, unspecified organism (principal); R13.10 Dysphagia, unspecified; K80.20 Calculus of gallbladder without cholecystitis without obstruction; F42.9 Obsessive-compulsive disorder, unspecified; F03.90 Unspecified dementia, unspecified severity, without behavioral disturbance, psychotic disturbance, mood disturbance, and anxiety; Z20.822 Contact with and (suspected) exposure to COVID-19; Z87.820 Personal history of traumatic brain injury; Z79.899 Other long term (current) drug therapy
CPT/HCPCS: 36415; 70450; 71045; 72125; 74177; 74181; 76705; 78226; 80048; 80053; 80076; 80202; 81001; 81003; 82390; 82550; 82565; 82728; 82784; 83540; 83605; 83690; 84145; 84443; 85025; 85027; 86015; 86140; 86255; 86256; 86364; 86376; 86704; 86706; 86709; 86803; 87040; 87086; 87340; 87635; 93005; 93975; 96365; 99285; A9537; J1650; J2405; J2543; J3370; Q9967

== ENCOUNTER 2022-01-06 09:41 | Inpatient (IN) | payer MEDICARE, SELFPAY ==
[2022-01-06] VITALS (17 sets, daily range): BP systolic 68–130; BP diastolic 40–72; PULSE 67–113; RESP 14–20; TEMP 36.2–38.9; O2SAT 90–98; BMI 38.2
--- NOTE | ~2022-01-06 | XR_ITS ---
EXAMINATION: XR CHEST CLINICAL INFORMATION: TLC placement COMPARISON: 01/06/2022 TECHNIQUE: Frontal view of the chest was obtained. FINDINGS: Right IJ central line tip lies in the region of the cavoatrial junction. The lungs are hypoinflated with right hemidiaphragm elevation again noted. Somewhat streaky bibasilar opacities are again demonstrated. No appreciable pneumothorax or significant pleural effusion. The cardiomediastinal silhouette is stable. No acute osseous findings are seen. XR/XR chest 1V IMPRESSION: Right IJ central line tip in the region of the cavoatrial junction. Low lung volumes with somewhat streaky bibasilar opacities which may represent atelectasis.
--- NOTE | ~2022-01-06 | CT_ITS ---
PROCEDURE: CT GUIDED ABSCESS DRAINAGE CLINICAL INFORMATION: Acute cholecystitis with sepsis. COMPARISON: January 06, 2022 TECHNIQUE: CT fluoroscopic guided cholecystostomy tube placement. This CT examination was performed using dose optimization techniques as appropriate, variously including the following: *Automated exposure control *Adjustment of mA and/or kV according to patient size (this includes techniques or standardized protocols for targeted exams where dose is matched to indication/reason for exam; i.e. extremities or head) *Use of iterative reconstruction technique DLP: 1389 mGy-cm FINDINGS: Informed consent was obtained from the patient's daughter prior to the procedure. During this process, the procedure and potential alternatives were explained, along with the intended outcome and benefits. The risks of the procedure, as well as the risk of not doing the procedure, were discussed. The patient's daughter was given the opportunity to ask questions regarding the procedure and appeared competent to make medical decisions. A signed consent form which documents this discussion was placed in the medical record. Using sterile technique and CT fluoroscopic guidance from a right anterolateral approach a 5 Guamanian Yueh needle was directed into the gallbladder slightly cloudy green bile was sent for laboratory studies. A guidewire was coiled within the gallbladder and following fascial dilatation an 8.5 Guamanian biliary drainage catheter was placed with cope loop formed within the gallbladder. The catheter was sutured in place and put to external bulb suction. CT/CT guided drainage IMPRESSION: Placement of 8.5 Guamanian cholecystostomy tube as described.
--- NOTE | ~2022-01-06 | CT_ITS ---
EXAMINATION: CT ABDOMEN AND PELVIS WITH CONTRAST CLINICAL INFORMATION: Diffuse abdominal pain. COMPARISON: 12/22/2021 CT . MRCP performed 12/26/2021. TECHNIQUE: Multidetector volumetric images were obtained from the superior aspect of the liver through the pubic symphysis following administration 85 mL of Omnipaque 350 intravenous contrast. Sagittal and coronal reformatted images were obtained on the technologist's workstation. Oral contrast: No This CT examination was performed using dose optimization techniques as appropriate, variously including the following: *Automated exposure control *Adjustment of mA and/or kV according to patient size (this includes techniques or standardized protocols for targeted exams where dose is matched to indication/reason for exam; i.e. extremities or head) *Use of iterative reconstruction technique DLP: 883 mGy-cm FINDINGS: LUNG BASES: Bibasilar atelectasis. The visualized cardiac structures are unremarkable. LIVER, GALLBLADDER, AND BILIARY TREE: The liver is normal in size, shape, and attenuation. Redemonstration of the probable hemangioma measuring 1.1 cm in segment 8.. Mild intrahepatic biliary ductal dilatation is again noted. Prominent stone in the gallbladder neck is again noted, similar to previous. This measures 1.2 cm. Small amount of fluid surrounds the gallbladder again. PANCREAS: Partial atrophy with no focal abnormality. SPLEEN: Unremarkable. ADRENAL GLANDS: Unremarkable. KIDNEYS AND URETERS: The kidneys are normal in size, shape, and attenuation. No hydronephrosis, hydroureter, or calculi seen. No perinephric stranding. BLADDER: Unremarkable. GASTROINTESTINAL TRACT: A portion of the greater curvature of the stomach herniates through an abdominal wall defect, unchanged from prior. Normal caliber of the small bowel. No obstruction. No colonic wall thickening or acute inflammation. ABDOMINAL WALL: Ventral abdominal wall hernia to the left of midline containing a portion of the stomach. This is unchanged. LYMPH NODES: Normal. VASCULAR: Unremarkable. PELVIC VISCERA: The uterus and adnexa are unremarkable. OSSEOUS STRUCTURES: No acute or suspicious osseous abnormality. Mild degenerative changes of the spine. CT/CT abdomen pelvis w con IMPRESSION: Cholelithiasis with stone remaining at the gallbladder neck. Mild inflammatory changes surrounding the gallbladder. This remains concerning for cholecystitis. Otherwise no acute finding in the abdomen or pelvis. Abdominal wall defect remains with herniation of a portion of the stomach. This is unchanged. Fleischner guidelines were followed.
--- NOTE | ~2022-01-06 | XR_ITS ---
EXAMINATION: XR CHEST CLINICAL INFORMATION: Shortness of breath COMPARISON: Chest radiograph this morning at 10:30 AM TECHNIQUE: Frontal view of the chest was obtained. FINDINGS: Tear to the prior study, lung volumes are even lower. Increasing basilar atelectasis is present. Heart size within normal limits. No pleural effusions are seen. Small bone island is present in the left humerus. XR/XR chest 1V IMPRESSION: Hypoinflated lungs with increasing bibasilar atelectasis.
--- NOTE | ~2022-01-06 | XR_ITS ---
EXAMINATION: XR CHEST CLINICAL INFORMATION: Change in mental status, rule out pneumonia. COMPARISON: 12/22/[address] scan of the abdomen and pelvis. TECHNIQUE: Frontal view of the chest was obtained. FINDINGS: Mild linear markings are seen at the left lung base representing interval decrease in the previous study. The lungs otherwise clear. The heart and mediastinal structures are unremarkable. XR/XR chest 1V IMPRESSION: Interval decrease in left basilar atelectasis/infiltrates with mild residual linear markings.
--- NOTE | ~2022-01-06 | US_ITS ---
EXAMINATION: US ABDOMEN LIMITED CLINICAL INFORMATION: Abnormal LFTs. COMPARISON: CT scan of the abdomen and pelvis dated 01/06/2022, abdominal ultrasound dated 12/31/2021. TECHNIQUE: Real-time imaging of the right upper quadrant abdominal viscera. FINDINGS: PANCREAS: Visualized portions unremarkable. LIVER: Diffuse increased echotexture without focal abnormality. GALLBLADDER: Status post interval cholecystectomy (01/06/2022). COMMON BILE DUCT: Normal in caliber measuring 0.3 cm in diameter. RIGHT KIDNEY: 9.6 cm. Unremarkable. FREE FLUID: No ascites. Trace right pleural effusion. US/US abdomen limited IMPRESSION: 1. Hepatic steatosis without other significant abnormality. 2. Trace right pleural effusion.
--- NOTE | ~2022-01-06 | CT_ITS ---
EXAMINATION: CT HEAD WITHOUT CONTRAST CLINICAL INFORMATION: Change in mental status. Rule out fracture. COMPARISON: 12/22/2021 TECHNIQUE: Contiguous axial imaging was performed from the skull base to vertex without intravenous contrast. This CT examination was performed using dose optimization techniques as appropriate, variously including the following: * Automated exposure control * Adjustment of mA and/or kV according to patient size (this includes techniques or standardized protocols for targeted exams where dose is matched to indication/reason for exam; i.e. extremities or head) Use of iterative reconstruction technique DLP: 579 mGy-cm. FINDINGS: Status post left temporal craniotomy. Underlying encephalomalacia. This is mostly in the left temporal and frontal lobes. Ex vacuo dilatation of the left lateral ventricle. There is no evidence of acute intracranial hemorrhage or territorial infarction. No abnormal mass effect or midline shift is seen. Bae to white matter differentiation is well preserved. No extra-axial fluid collections are identified. No hydrocephalus. Proportional prominence of the ventricles and sulcal spaces is consistent with mild volume loss. Patchy periventricular and deep white matter hypoattenuation is consistent with mild small vessel ischemic changes. No acute osseous or soft tissue abnormality.. The mastoid air cells and visualized portions of the paranasal sinuses are well aerated. CT/CT head/brain wo con IMPRESSION: No acute intracranial pathology. Chronic changes of left-sided craniotomy with underlying encephalomalacia.
--- NOTE | 2022-01-06 10:01 | ECG_ITS ---
Test Reason : FALL Blood Pressure : / mmHG Vent. Rate : 072 BPM Atrial Rate : 072 BPM P-R Int : 168 ms QRS Dur : 076 ms QT Int : 416 ms P-R-T Axes : 054 015 036 degrees QTc Int : 455 ms Normal sinus rhythm Normal ECG When compared with ECG of 22-DEC-2021 10:40, No significant change was found Referred By: Generic ED Physician Electronically Signed By:RIKKI JOHN MD
--- NOTE | 2022-01-06 10:40 | ED_ITS ---
HPI - Fall General Chief Complaint: Fall Stated Complaint: AMS S/P FALL LAST NIGHT @ SNF,HX PNA PER EMS Time Seen by Provider: 01/06/22 10:07 Source: EMS Mode of arrival: EMS Limitations: altered mental status History of Present Illness HPI Narrative: 62-year-old female who was was sent in from her care facility for evaluation of altered mental status. The patient apparently had an unwitnessed fall after midnight today. This morning, the patient was altered and sent to the emergency department for evaluation. The patient just had a prolonged hospital course here at [facility]. She was admitted from 12/22/2021 until 01/05/2022 for left lower lobe pneumonia, common bile duct stone, gallbladder sludge, abnormal LFTs. The patient was worked up with CT scan of the abdomen, gallbladder ultrasound and MR CP. The patient was treated with 7 days of vancomycin and 9 days of Zosyn. At the time of examination, the patient is awake, she is making verbal noises that are not comprehensive. She does not appear to be in distress. Related Data Home Medications Medication Instructions Recorded Confirmed acetaminophen 325 mg tablet 650 mg PO Q6H PRN 03/17/21 01/06/22 famotidine 40 mg tablet 40 mg PO DAILY 03/17/21 01/06/22 ibuprofen 600 mg tablet 600 mg PO Q8H PRN 03/17/21 01/06/22 loperamide 2 mg capsule 2 mg PO Q6H PRN 03/17/21 01/06/22 omeprazole 20 mg capsule,delayed 20 mg PO DAILY 03/17/21 01/06/22 release sennosides 8.6 mg tablet (Natural 8.6 mg PO Q24H PRN 03/17/21 01/06/22 Senna Laxative) sodium chloride 0.65 % nasal spray 1 spray INTRANASAL Q8H PRN 03/17/21 01/06/22 aerosol ([place] Nasal) aripiprazole 5 mg tablet (Abilify) 2.5 mg PO DAILY 12/22/21 01/06/22 calcium carbonate 500 mg calcium 500 mg PO Q8H PRN 12/22/21 01/06/22 (1,250 mg) chewable tablet cetirizine 10 mg tablet 10 mg PO DAILY 12/22/21 01/06/22 citalopram 20 mg tablet 20 mg PO DAILY 12/22/21 01/06/22 clozapine 100 mg tablet (Clozaril) 100 mg PO BEDTIME 12/22/21 01/06/22 lamotrigine 150 mg tablet 150 mg PO BID 12/22/21 01/06/22 oxycodone-acetaminophen 5 mg-325 1 tab PO Q4H PRN 12/22/21 01/06/22 mg tablet Allergies Allergy/AdvReac Type Severity Reaction Status Date / Time No Known Allergies Allergy Verified 12/23/21 17:09 Review of Systems Review of Systems: Yes all other systems are reviewed and are negative [facility] Past Medical History Medical History Aphasia Chondrocostal junction syndrome Delusional disorder Dementia Disruptive mood dysregulation disorder Gallstones GERD (gastroesophageal reflux disease) Hx of migraine headaches Hyperlipidemia Myopia Obsessive compulsive disorder Raynauds syndrome Traumatic brain injury Family History Family History Maternal Grandmother Breast cancer Social History Social History Household Members: None Housing: [facility] Do you presently have visiting nurse or other home services: No Unable to assess alcohol history related to: Unknown Patient Tobacco Use Status: Never used Tobacco e-Cigarette/Vaping Use: Never Used Advance Directives: Yes Advance Directives on File: Yes Advance Directives Date on File: 12/03/21 service: No Current occupational status: disabled Physical Exam Vital Signs: Vital Signs: Last Vital Signs Temp 97.2 F 01/06/22 13:17 Pulse 69 01/06/22 15:08 Resp 14 01/06/22 15:08 BP 111/52 L 01/06/22 15:08 Pulse Ox 95 01/06/22 15:08 BMI result Body Mass Index 38.2 Const: Other: Awake, female patient, she is making verbal noises, she does not answer questions, she does not appear to be in distress HEENT: Head: Yes normal to inspection, Yes normocephalic and Yes atraumatic Ears: external ears normal General nose exam: Normal external nose present Face and sinus: Yes normal facial exam Mouth: Normal oral and palatal mucosa present Throat: Yes posterior oropharynx normal Eyes: General: appearance normal, both eyes and all related structures Pupils: Equal, round and reactive pupils present Neck: Neck: Yes normal visual inspection, Yes no lymphadenopathy, Yes trachea midline and Yes supple Chest: Chest palpation & inspection: normal inspection of the chest and normal palpation of entire chest wall Resp: Effort & Inspection: normal respiratory effort and able to speak in complete sentences Auscultation: clear to auscultation bilaterally Cardio: Rate: regular rate Rhythm: regular rhythm Heart sounds: S1 normal heart sound present, S2 normal heart sound present and no murmurs GI: Palpation (GI): Tenderness to palpation present (GI) and Guarding due to palpation present (GI) Auscultation: normal bowel sounds : General: Yes no CVA tenderness Back/Spine/Pelvis: Back: no CVA tenderness Skin: General skin exam: no rashes or lesions noted Neuro: Cranial nerves: Yes CN's II-XII intact bilaterally and Yes Equal, round and reactive pupils present Cognition (Neuro): normal cognition Motor exam (neuro): 5/5 motor strength present throughout Extrem: General: Yes normal to inspection Psych: Appearance: grossly normal Speech and movement: Normal speech and movement present Affect: normal affect Attitude: cooperative Thought process: Normal thought process present Thought content: Normal thought content present Course Course Course Narrative: 62-year-old female who was was sent in from her care facility for evaluation of altered mental status. The patient apparently had an unwitnessed fall after midnight today. This morning, the patient was altered and sent to the emergency department for evaluation. The patient just had a prolonged hospital course here at [facility]. She was admitted from 12/22/2021 until 01/05/2022 for left lower lobe pneumonia, common bile duct stone, gallbladder sludge, abnormal LFTs. The patient was worked up with CT scan of the abdomen, gallbladder ultrasound and MR CP. The patient was treated with 7 days of vancomycin and 9 days of Zosyn. Physical examination revealed that the patient is altered, she is awake but does make verbal noises which are not comprehensible. Vital signs were unremarkable. Patient did have diffuse abdominal tenderness. I ordered a laboratory evaluation to include CBC, CMP, lactic acid, lipase, troponin, ammonia level, urinalysis, COVID-[address] scan of the head and abdomen pelvis will also be obtained. 1413: Laboratory evaluation: Elevated platelet count 565352. Elevated AST and ALT of 237 and 297. Elevated alk-phos of 403. Elevated bili 1.2. Lipase was normal a troponin was below detectable limits. Ammonia was normal. COVID-19 and influenza were negative. Radiology evaluation: CT scan of the head was unremarkable. CT scan of the abdomen pelvis radiology impression is as follows: Cholelithiasis with stone remaining at the gallbladder neck. Mild inflammatory changes surrounding the gallbladder. This remains concerning for cholecystitis. Otherwise no acute finding in the abdomen or pelvis. Abdominal wall defect remains with herniation of a portion of the stomach. This is unchanged.? I did discuss the patient's presentation over [place] Text with the covering hospitalist, Dr. Christian Hicks. The patient will be admitted for further management. - Fall Lab Data Result diagrams: 01/06/22 11:24 01/06/22 11:24 Labs: Lab Results 01/06/22 01/06/22 01/06/22 Range/Units 11:24 11:24 11:24 WBC 7.5 (4.8-10.8) X10*3/uL RBC 4.48 (4.20-5.50) X10*6/uL Hgb 12.9 (12.0-16.0) g/dl Hct 41.6 (37.0-47.0) % MCV 92.9 (80.0-98.0) fL MCH 28.8 (27.0-33.0) pg MCHC 31.0 (31.0-35.0) g/dl RDW 14.7 (11.0-16.0) % Plt Count 496 H (160-400) X10*3/uL MPV 9.2 L (9.4-12.3) fL Immature Gran % (Auto) 0.5 H (0.0-0.4) % Neut % (Auto) 64.9 (45-73) % Lymph % (Auto) 14.4 L (20-40) % [place] % (Auto) 8.0 (2-11) % Eos % (Auto) 11.4 H (0-4) % Baso % (Auto) 0.8 (0-2) % Lymph # (Auto) 1.1 L (1.2-4.9) X10*3/uL [place] # (Auto) 0.6 (0.1-1.2) X10*3/uL Eos # (Auto) 0.9 H (0.0-0.4) X10*3/uL Baso # (Auto) 0.1 (0.0-0.2) X10*3/uL Abs Immat Gran (auto) 0.04 H (0.00-0.03) X10*3/uL Absolute Neuts (auto) 4.9 (2.0-8.3) x10*3/uL Absolute Nucleated RBC 0.000 (0.0-0.012) X10*3/uL Nucleated RBC % (auto) 0.0 (0.0-0.2) /100WBC Sodium (135-145) mmol/L Potassium (3.3-5.1) mmol/L Chloride (96-108) mmol/L Carbon Dioxide (22-29) mmol/L Anion Gap (12-20) BUN (9-16) mg/dL Creatinine (0.5-1.4) mg/dL Estim Creat Clear Calc Estimated GFR Random Glucose (60-115) mg/dL Lactic Acid (0.5-2.0) mmol/L Calcium (8.4-10.2) mg/dL Total Bilirubin (0.0-1.0) mg/dL AST (5-31) U/L ALT (0-31) U/L Alkaline Phosphatase (39-117) U/L Ammonia (13-55) umol/L Troponin I High Sens (<3.5-17.0) ng/L B-Natriuretic Peptide 22 (<100) pg/mL Total Protein (6.5-8.0) g/dL Albumin (3.5-5.0) g/dL Lipase (8-78) U/L Urine Color Urine Appearance Urine pH (5.0-8.0) Ur Specific [place] (1.005-1.025) Urine Protein (NEG-TRACE) MG/DL Urine Glucose (UA) (NEG) MG/DL Urine Ketones (NEG) MG/DL Urine Blood (NEG) Urine Nitrite (NEG) Ur Leukocyte Esterase (NEG) Urine RBC (0) /HPF Urine WBC (0-4) /HPF Ur Squamous Epith Cells /LPF Urine Bacteria /LPF COVID-19 (OK) (Negative) COVID-19 Clin Com Influenza Type A ([facility]WARD) Negative (Negative) Influenza Type B ([facility]WARD) Negative (Negative) Influenza A & B Note See Note 01/06/22 01/06/22 01/06/22 Range/Units 11:24 11:24 11:24 WBC (4.8-10.8) X10*3/uL RBC (4.20-5.50) X10*6/uL Hgb (12.0-16.0) g/dl Hct (37.0-47.0) % MCV (80.0-98.0) fL MCH (27.0-33.0) pg MCHC (31.0-35.0) g/dl RDW (11.0-16.0) % Plt Count (160-400) X10*3/uL MPV (9.4-12.3) fL Immature Gran % (Auto) (0.0-0.4) % Neut % (Auto) (45-73) % Lymph % (Auto) (20-40) % [place] % (Auto) (2-11) % Eos % (Auto) (0-4) % Baso % (Auto) (0-2) % Lymph # (Auto) (1.2-4.9) X10*3/uL [place] # (Auto) (0.1-1.2) X10*3/uL Eos # (Auto) (0.0-0.4) X10*3/uL Baso # (Auto) (0.0-0.2) X10*3/uL Abs Immat Gran (auto) (0.00-0.03) X10*3/uL Absolute Neuts (auto) (2.0-8.3) x10*3/uL Absolute Nucleated RBC (0.0-0.012) X10*3/uL Nucleated RBC % (auto) (0.0-0.2) /100WBC Sodium 142 (135-145) mmol/L Potassium 3.8 (3.3-5.1) mmol/L Chloride 106 (96-108) mmol/L Carbon Dioxide 28 (22-29) mmol/L Anion Gap 12 (12-20) BUN 12 (9-16) mg/dL Creatinine 0.86 (0.5-1.4) mg/dL Estim Creat Clear Calc 82.3 Estimated GFR > 60 Random Glucose 113 (60-115) mg/dL Lactic Acid 1.4 (0.5-2.0) mmol/L Calcium 9.8 (8.4-10.2) mg/dL Total Bilirubin 1.2 H (0.0-1.0) mg/dL AST 237 H (5-31) U/L ALT 297 H (0-31) U/L Alkaline Phosphatase 403 H (39-117) U/L Ammonia (13-55) umol/L Troponin I High Sens < 3.5 (<3.5-17.0) ng/L B-Natriuretic Peptide (<100) pg/mL Total Protein 7.2 (6.5-8.0) g/dL Albumin 3.9 (3.5-5.0) g/dL Lipase 55 (8-78) U/L Urine Color Urine Appearance Urine pH (5.0-8.0) Ur Specific [place] (1.005-1.025) Urine Protein (NEG-TRACE) MG/DL Urine Glucose (UA) (NEG) MG/DL Urine Ketones (NEG) MG/DL Urine Blood (NEG) Urine Nitrite (NEG) Ur Leukocyte Esterase (NEG) Urine RBC (0) /HPF Urine WBC (0-4) /HPF Ur Squamous Epith Cells /LPF Urine Bacteria /LPF COVID-19 (OK) (Negative) COVID-19 Clin Com Influenza Type A ([facility]WARD) (Negative) Influenza Type B ([facility]) (Negative) Influenza A & B Note 01/06/22 01/06/22 01/06/22 Range/Units 11:24 11:24 14:27 WBC (4.8-10.8) X10*3/uL RBC (4.20-5.50) X10*6/uL Hgb (12.0-16.0) g/dl Hct (37.0-47.0) % MCV (80.0-98.0) fL MCH (27.0-33.0) pg MCHC (31.0-35.0) g/dl RDW (11.0-16.0) % Plt Count (160-400) X10*3/uL MPV (9.4-12.3) fL Immature Gran % (Auto) (0.0-0.4) % Neut % (Auto) (45-73) % Lymph % (Auto) (20-40) % [place] % (Auto) (2-11) % Eos % (Auto) (0-4) % Baso % (Auto) (0-2) % Lymph # (Auto) (1.2-4.9) X10*3/uL [place] # (Auto) (0.1-1.2) X10*3/uL Eos # (Auto) (0.0-0.4) X10*3/uL Baso # (Auto) (0.0-0.2) X10*3/uL Abs Immat Gran (auto) (0.00-0.03) X10*3/uL Absolute Neuts (auto) (2.0-8.3) x10*3/uL Absolute Nucleated RBC (0.0-0.012) X10*3/uL Nucleated RBC % (auto) (0.0-0.2) /100WBC Sodium (135-145) mmol/L Potassium (3.3-5.1) mmol/L Chloride (96-108) mmol/L Carbon Dioxide (22-29) mmol/L Anion Gap (12-20) BUN (9-16) mg/dL Creatinine (0.5-1.4) mg/dL Estim Creat Clear Calc Estimated GFR Random Glucose (60-115) mg/dL Lactic Acid (0.5-2.0) mmol/L Calcium (8.4-10.2) mg/dL Total Bilirubin (0.0-1.0) mg/dL AST (5-31) U/L ALT (0-31) U/L Alkaline Phosphatase (39-117) U/L Ammonia 33 (13-55) umol/L Troponin I High Sens (<3.5-17.0) ng/L B-Natriuretic Peptide (<100) pg/mL Total Protein (6.5-8.0) g/dL Albumin (3.5-5.0) g/dL Lipase (8-78) U/L Urine Color YELLOW Urine Appearance CLEAR Urine pH 6.5 (5.0-8.0) Ur Specific [place] 1.010 (1.005-1.025) Urine Protein NEG (NEG-TRACE) MG/DL Urine Glucose (UA) NEG (NEG) MG/DL Urine Ketones NEG (NEG) MG/DL Urine Blood 2+ H (NEG) Urine Nitrite NEG (NEG) Ur Leukocyte Esterase NEG (NEG) Urine RBC 1-4 (0) /HPF Urine WBC 0-2 (0-4) /HPF Ur Squamous Epith Cells TRACE /LPF Urine Bacteria NONE /LPF COVID-19 (OK) Negative (Negative) COVID-19 Clin Com See Note Influenza Type A ([facility]) (Negative) Influenza Type B ([place]) (Negative) Influenza A & B Note ECG Data Attestation: I personally reviewed and interpreted this ECG as follows: Interpretation: 1014: Normal sinus rhythm rate of 72, normal NC interval QRS interval and QTC interval, no ST segment elevation, no ST segment depression, no PACs, no PVCs, this is a normal EKG Discharge Plan Discharge Clinical Impression: Biliary calculus with obstruction without cholecystitis, Acute alteration in mental status Patient Disposition: Admitted As Inpatient
[2022-01-06 11:35] LABS: MANUAL DIFF FLAG NO
[2022-01-06] MEDS: 0.9 % Sodium Chloride 1,000 ML 999 ML IV (11:43)
[2022-01-06 11:45] LABS: Ammonia 33 umol/L (13-55)
[2022-01-06 11:47] LABS: Basophils Absolute Auto 0.1 X10*3/uL (0.0-0.2); Basophils Percent Auto 0.8 % (0-2); Eosinophils Absolute Auto 0.9 X10*3/uL (0.0-0.4); Eosinophils Percent Auto 11.4 % (0-4); Hematocrit 41.6 % (37.0-47.0); Hemoglobin 12.9 g/dl (12.0-16.0); Imm Gran Abs Auto 0.04 X10*3/uL (0.00-0.03); Imm Gran Pct Auto 0.5 % (0.0-0.4); Lactic Acid 1.4 mmol/L (0.5-2.0); Lymphocytes Absolute Auto 1.1 X10*3/uL (1.2-4.9); Lymphocytes Percent Auto 14.4 % (20-40); Mean Corpuscular Hemoglobin 28.8 pg (27.0-33.0); Mean Corpuscular Volume 92.9 fL (80.0-98.0); Mean Platelet Volume 9.2 fL (9.4-12.3); Monocytes Absolute Auto 0.6 X10*3/uL (0.1-1.2); Neutrophils Absolute Auto 4.9 x10*3/uL (2.0-8.3); Neutrophils Percent Auto 64.9 % (45-73); Platelet Count 496 X10*3/uL (160-400); Red Blood Count 4.48 X10*6/uL (4.20-5.50); Red Cell Distribution Width 14.7 % (11.0-16.0); White Blood Count 7.5 X10*3/uL (4.8-10.8)
[2022-01-06 11:53] LABS: COVID-19 Test Negative (Negative); IDNOW Serial# 16C4AD1C
[2022-01-06 11:54] LABS: Alanine Aminotransferase 297 U/L (0-31); Albumin Level 3.9 g/dL (3.5-5.0); Alkaline Phosphatase 403 U/L (39-117); Anion Gap 12 (12-20); Aspartate Amino Transferase 237 U/L (5-31); Bilirubin Total 1.2 mg/dL (0.0-1.0); Blood Urea Nitrogen 12 mg/dL (9-16); Calcium 9.8 mg/dL (8.4-10.2); Carbon Dioxide 28 mmol/L (22-29); Chloride 106 mmol/L (96-108); Creatinine Clr Calc Pharmacy 82.3; Estimated Glomerular Filt Rate > 60; Glucose Random 113 mg/dL (60-115); Lipase 55 U/L (8-78); Potassium 3.8 mmol/L (3.3-5.1); Sodium 142 mmol/L (135-145); Total Protein 7.2 g/dL (6.5-8.0)
[2022-01-06 11:58] LABS: IDNOW Serial# 08D9AD1C; Influenza A Negative (Negative); Influenza B2 Negative (Negative)
[2022-01-06 11:59] LABS: B Type Natriuretic Peptide 22 pg/mL (<100); Troponin-I High Sensitivity < 3.5 ng/L (<3.5-17.0)
--- NOTE | 2022-01-06 12:49 | PC.NURSE ---
pt is resting quitely in bed. Incon of urine, perwic placed by PCT. VSS
[2022-01-06] MEDS: iohexoL 350 MG/ML 75 ML INFUS..BTL 85 ML IV (13:02)
[2022-01-06] MEDS: iohexoL 350 MG/ML 100 ML INFUS..BTL IV (13:24)
[2022-01-06 14:38] LABS: Appearance Urine CLEAR; Color Urine YELLOW; Glucose Urine UA NEG (NEG); Leukocyte Esterase Urine NEG (NEG); Nitrite Urine NEG (NEG); PH 6.5 (5.0-8.0); UACC Culture Trigger NO; Urine Blood 2+ (NEG); Urine Ketones NEG (NEG); Urine Protein NEG (NEG-TRACE)
[2022-01-06 14:45] LABS: Squamous Epithelial Cell Urine TRACE /LPF; WBC Urine 0-2 /HPF (0-4)
--- NOTE | 2022-01-06 14:50 | PHA.MEDREC ---
Pharmacy Consult ? Medication Reconciliation Pharmacy has completed the medication reconciliation.
[2022-01-06] MEDS: Piperacillin Sodium/Tazobactam 4.5 GM in 0.9 % Sodium Chloride 100 ML IV (16:26)
[2022-01-06] MEDS: oxyCODONE HCl Immed Release 5 MG TABLET PO (16:35)
[2022-01-06] MEDS: Dextrose 5 % and 0.9 % NaCl 1,000 ML 100 ML IVCONT (16:38)
--- NOTE | 2022-01-06 17:25 | P.HPHOSP_ITS ---
History of Present Illness Date of Service: 01/06/22 Chief Complaint: Fatigue/mental status changes 62-year-old female recently discharged from [facility] after being treated for a cystic duct obstruction. She was treated with vanco and Zosyn ; seen by both GI and surgery. Ultrasound prior to DC demonstrated no stone he possibly sludge and she was discharged back to [facility]. This a.m., she was not ed to be lethargic and confused. .. Transferred to [facility] ER. In the ER, CT of abdomen demonstrated cholelithiasis with stone remaining in the gallbladder neck mild inflammatory changes surrounding the gall bag. At this point in time she will be admitted for further workup of her elevated LFTs and mental status change Review of Systems Review of Systems: Unable to secondary to confusion [facility] Medical History Aphasia Chondrocostal junction syndrome Delusional disorder Dementia Disruptive mood dysregulation disorder Gallstones GERD (gastroesophageal reflux disease) Hx of migraine headaches Hyperlipidemia Myopia Obsessive compulsive disorder Raynauds syndrome Traumatic brain injury Family History Maternal Grandmother Breast cancer Social History Household Members: None Housing: Retirement Do you presently have visiting nurse or other home services: No Unable to assess alcohol history related to: Unknown Patient Tobacco Use Status: Never used Tobacco e-Cigarette/Vaping Use: Never Used Advance Directives: Yes Advance Directives on File: Yes Advance Directives Date on File: 12/03/21 service: No Current occupational status: disabled Meds Allergies Allergy/AdvReac Type Severity Reaction Status Date / Time No Known Allergies Allergy Verified 12/23/21 17:09 Active Medications: Current Medications Acetaminophen (Acetaminophen 325 Mg Tablet) 650 mg PO Q6H PRN PRN Reason: Pain, Mild (Pain Scale 1-3) Aripiprazole (Aripiprazole 5 Mg Tablet) 2.5 mg PO DAILY PRIYANKA Calcium Carbonate (Calcium Carbonate 750 Mg Tab.Chew) 750 mg PO Q8H PRN PRN Reason: Heartburn Escitalopram Oxalate (Escitalopram Oxalate 10 Mg Tablet) 10 mg PO DAILY PRIYANKA Famotidine (Famotidine 20 Mg Tablet) 40 mg PO DAILY PRIYANKA Dextrose/Sodium Chloride (D5ns) 1,000 mls @ 100 mls/hr IVCONT .Q10H [facility] Last Admin: 01/06/22 16:38 Dose: 100 mls/hr Documented by: Lamotrigine (Lamotrigine 100 Mg Tablet) 150 mg PO BID [facility] Loperamide HCl (Loperamide Hcl 2 Mg Capsule) 2 mg PO Q6H PRN PRN Reason: Diarrhea Loratadine (Loratadine 10 Mg Tablet) 10 mg PO DAILY PRIYANKA Oxycodone HCl (Oxycodone Hcl Immed Release 5 Mg Tablet) 5 mg PO Q4H PRN PRN Reason: Pain, Severe (Pain Scale 7-10) Last Admin: 01/06/22 16:35 Dose: 5 mg Documented by: Senna (Sennosides 8.6 Mg Tablet) 8.6 mg PO Q24H PRN PRN Reason: Constipation Sodium Chloride (0.9 % Sodium Chloride Flush 3 Ml Syringe) 3 ml IVFLUSH QSHIFT [facility] Last Admin: 01/06/22 16:43 Dose: Not Given Documented by: Sodium Chloride (Sodium Chloride 0.65 % Nasal 44 Ml Sprbtl) 1 spray NOSTRIL-B Q8H PRN PRN Reason: Nasal Congestion Home Medications Medication Instructions Recorded Confirmed Last Taken Type acetaminophen 325 mg tablet 650 mg PO Q6H PRN 03/17/21 01/06/22 Unknown History famotidine 40 mg tablet 40 mg PO DAILY 03/17/21 01/06/22 01/05/22 History ibuprofen 600 mg tablet 600 mg PO Q8H PRN 03/17/21 01/06/22 Unknown History loperamide 2 mg capsule 2 mg PO Q6H PRN 03/17/21 01/06/22 Unknown History omeprazole 20 mg capsule,delayed 20 mg PO DAILY 03/17/21 01/06/22 01/05/22 History release sennosides 8.6 mg tablet (Natural 8.6 mg PO Q24H PRN 03/17/21 01/06/22 Unknown History Senna Laxative) sodium chloride 0.65 % nasal spray 1 spray INTRANASAL Q8H PRN 03/17/21 01/06/22 Unknown History aerosol ([place] Nasal) aripiprazole 5 mg tablet (Abilify) 2.5 mg PO DAILY 12/22/21 01/06/22 01/05/22 History calcium carbonate 500 mg calcium 500 mg PO Q8H PRN 12/22/21 01/06/22 Unknown History (1,250 mg) chewable tablet cetirizine 10 mg tablet 10 mg PO DAILY 12/22/21 01/06/22 Unknown History citalopram 20 mg tablet 20 mg PO DAILY 12/22/21 01/06/22 01/05/22 History clozapine 100 mg tablet (Clozaril) 100 mg PO BEDTIME 12/22/21 01/06/22 01/05/22 History lamotrigine 150 mg tablet 150 mg PO BID 12/22/21 01/06/22 01/05/22 History oxycodone-acetaminophen 5 mg-325 1 tab PO Q4H PRN 12/22/21 01/06/22 Unknown History mg tablet Physical Exam Vital Signs and Narrative: Vital Signs: Last Vital Signs Temp 97.2 F 01/06/22 13:17 Pulse 69 01/06/22 15:08 Resp 14 01/06/22 15:08 BP 111/52 L 01/06/22 15:08 Pulse Ox 95 01/06/22 15:08 BMI result Body Mass Index 38.2 Const: Other: Awake confused (at baseline.. Known to appeals writer) Resp: Other: Clear to auscultation bilaterally no rales rhonchi or wheezes Cardio: Other: No S4; positive S1-S2; no S3 murmurs rubs or gallops GI: Other: Soft nontender nondistended with normoactive bowel sounds. There is no right upper quadrant tenderness or rebound noted Extrem: Other: No edema bilaterally Results Labs CBC and Chem 7: 01/06/22 11:24 01/06/22 11:24 Labs: Laboratory Results - last 24 hr 01/06/22 01/06/22 01/06/22 11:24 11:24 11:24 MCV 92.9 MCH 28.8 MCHC 31.0 RDW 14.7 Plt Count 496 H MPV 9.2 L Immature Gran % (Auto) 0.5 H Neut % (Auto) 64.9 Lymph % (Auto) 14.4 L [place] % (Auto) 8.0 Eos % (Auto) 11.4 H Baso % (Auto) 0.8 Lymph # (Auto) 1.1 L [place] # (Auto) 0.6 Eos # (Auto) 0.9 H Baso # (Auto) 0.1 Abs Immat Gran (auto) 0.04 H Absolute Neuts (auto) 4.9 Absolute Nucleated RBC 0.000 Nucleated RBC % (auto) 0.0 Anion Gap Estim Creat Clear Calc Estimated GFR Random Glucose Lactic Acid Calcium Total Bilirubin AST ALT Alkaline Phosphatase Ammonia Troponin I High Sens B-Natriuretic Peptide 22 Total Protein Albumin Lipase Urine Color Urine Appearance Urine pH Ur Specific [place] Urine Protein Urine Glucose (UA) Urine Ketones Urine Blood Urine Nitrite Ur Leukocyte Esterase Urine RBC Urine WBC Ur Squamous Epith Cells Urine Bacteria COVID-19 (OK) COVID-19 Clin Com Influenza Type A ([facility]) Negative Influenza Type B ([place]) Negative Influenza A & B Note See Note 01/06/22 01/06/22 01/06/22 11:24 11:24 11:24 MCV MCH MCHC RDW Plt Count MPV Immature Gran % (Auto) Neut % (Auto) Lymph % (Auto) [place] % (Auto) Eos % (Auto) Baso % (Auto) Lymph # (Auto) [place] # (Auto) Eos # (Auto) Baso # (Auto) Abs Immat Gran (auto) Absolute Neuts (auto) Absolute Nucleated RBC Nucleated RBC % (auto) Anion Gap 12 Estim Creat Clear Calc 82.3 Estimated GFR > 60 Random Glucose 113 Lactic Acid 1.4 Calcium 9.8 Total Bilirubin 1.2 H AST 237 H ALT 297 H Alkaline Phosphatase 403 H Ammonia Troponin I High Sens < 3.5 B-Natriuretic Peptide Total Protein 7.2 Albumin 3.9 Lipase 55 Urine Color Urine Appearance Urine pH Ur Specific [place] Urine Protein Urine Glucose (UA) Urine Ketones Urine Blood Urine Nitrite Ur Leukocyte Esterase Urine RBC Urine WBC Ur Squamous Epith Cells Urine Bacteria COVID-19 (OK) COVID-19 Clin Com Influenza Type A ([facility]WARD) Influenza Type B ([facility]) Influenza A & B Note 01/06/22 01/06/22 01/06/22 11:24 11:24 14:27 MCV MCH MCHC RDW Plt Count MPV Immature Gran % (Auto) Neut % (Auto) Lymph % (Auto) [place] % (Auto) Eos % (Auto) Baso % (Auto) Lymph # (Auto) [place] # (Auto) Eos # (Auto) Baso # (Auto) Abs Immat Gran (auto) Absolute Neuts (auto) Absolute Nucleated RBC Nucleated RBC % (auto) Anion Gap Estim Creat Clear Calc Estimated GFR Random Glucose Lactic Acid Calcium Total Bilirubin AST ALT Alkaline Phosphatase Ammonia 33 Troponin I High Sens B-Natriuretic Peptide Total Protein Albumin Lipase Urine Color YELLOW Urine Appearance CLEAR Urine pH 6.5 Ur Specific [place] 1.010 Urine Protein NEG Urine Glucose (UA) NEG Urine Ketones NEG Urine Blood 2+ H Urine Nitrite NEG Ur Leukocyte Esterase NEG Urine RBC 1-4 Urine WBC 0-2 Ur Squamous Epith Cells TRACE Urine Bacteria NONE COVID-19 (OK) Negative COVID-19 Clin Com See Note Influenza Type A ([facility]WARD) Influenza Type B ([facility]) Influenza A & B Note Imaging Radiologist's Impressions: Impressions Chest X-Ray 01/06/22 10:40 IMPRESSION: Interval decrease in left basilar atelectasis/infiltrates with mild residual linear markings. Abdomen/Pelvis CT 01/06/22 13:21 IMPRESSION: Cholelithiasis with stone remaining at the gallbladder neck. Mild inflammatory changes surrounding the gallbladder. This remains concerning for cholecystitis. Otherwise no acute finding in the abdomen or pelvis. Abdominal wall defect remains with herniation of a portion of the stomach. This is unchanged. Fleischner guidelines were followed. Head CT 01/06/22 13:21 IMPRESSION: No acute intracranial pathology. Chronic changes of left-sided craniotomy with underlying encephalomalacia. Assessment and Plan (1) Acute alteration in mental status: Status: Acute (2) Biliary calculus with obstruction without cholecystitis: Status: Acute (3) Abnormal LFTs: Status: Acute Plan 62-year-old female with known cystic duct obstruction by HIDA scan last admissio n presents with acute alteration in mental status this morning from [facility]. CT scan continues to demonstrate cholelithiasis with stone in the gallbladder neck; exam however is totally benign. Will admit for further workup of same 1. Acute mental status change -patient is essentially back to baseline -will check ammonia level in a.m. 2. Biliary calculus with obstruction without cholecystitis -discussed again with surgery who feel invasive intervention is not indicated -will order liver biopsy in a.m. question hepatocellular changes as opposed to cholestatic -follow LFTs daily 3.TBI - continue outpatient therapies -adjust as indicated Full code Lovenox Patient will require at least 1 midnight going forward to evaluate liver biopsy and LFTs Quality Stroke Does the patient have a stroke diagnosis?: No VTE Prior VTE?: No VTE Risk Level:: Medical - moderate - high VTE Device Contraindication: Treatment Not Indicated VTE Drug Contraindication: N/A - Med Ordered
--- NOTE | 2022-01-06 21:41 | PM.EVENT ---
Event Note Date of Service: 01/06/22 Event Note: Patient had a fever of 102, hypotensive, also hypoxic, lactic acid, blood cultures ordered, at this time will start her on sepsis bolus fluid will order chest x-ray, after reviewing CT abdomen there was concern for cholecystitis therefore will treat IV antibiotics
[2022-01-06] MEDS: cefTRIAXone sodium 1 GM in 0.9 % Sodium Chloride 50 ML IV (22:24)
[2022-01-06 22:27] LABS: Lactic Acid 2.9 mmol/L (0.5-2.0)
[2022-01-06] MEDS: metroNIDAZOLE/NS 500 MG/100 ML PIGGYBACK 100 MG IV (23:03)
--- NOTE | 2022-01-06 23:50 | W.PM.CCCN ---
Documented by User: Heydi Mattson PA-C 01/07/22 19:49 History of Present Illness Data of Consult Service Date: 01/06/22 Requesting physician: Geovany Crabtree Primary Care Provider: Christian Hicks DO HPI Reason for consult: severe sepsis 62-year-old female recently discharged from [facility] after being treated from 12/22/21 to 01/05/22 for a LLL PNA, cystic duct obstruction with vanco for 7 days and zosyn for 9 days after being evaluated by GI and surgery. MCRP revealed impacted stone in the gallbladder neck, mild gallbladder wall thickening; hepatobiliary scan showed cystic duct obstruction up to 5 hours; US during that stay revealed Slightly enlarged gallbladder. Small gallstones. Slightly thickened gallbladder wall and trace pericholecystic fluid. Appearance is again concerning for cholecystitis . Abd CT Scan showed Mild hepatic steatosis.*? There is an impacted stone in the gallbladder neck. The mild gallbladder wall thickening has improved compared to 12/22/2021. Trace pericholecystic fluid is present. If the patient has right upper quadrant pain/Ann's sign, then constellation of findings would suggest acute cholecystitis. Also, the finding of an obstructed cystic duct on hepatobiliary scan from 08/27/2022 favors diagnosis of acute cholecystitis. There is no choledocholithiasis.*? A small, 1 cm T2 hyperintense focus in hepatic segment 8 is likely a hemangioma.*? A ventral abdominal wall hernia contains a portion of the stomach . The patient was treated with antibiotics and dc'd back to [facility].? This morning, she was noted by [facility] staff to be lethargic, confused so she was sent via EMS [place] [facility].? In the ED, CT of abdomen demonstrated cholelithiasis with stone remaining in the gallbladder neck, mild inflammatory changes surrounding the galbladder.?Pt was admitted for further workup of elevated LFTs and mental status change. Earlier this evening, at approximately 21:00 patient was found to be febrile at 102 degrees F, sinus tach at 108BPM, blood pressure was noted at that time to be 96/44 a map of 64, pulse ox was 95% on 2 L nasal cannula. Patient was given 3130mls with no change in her blood pressure, while at the bedside, patient's blood pressure was 90/59. Patient was also given ceftriaxone and Flagyl. lactic acid 2.9, BC pending. Chest x-ray at the time showed hypoinflated lungs with increasing bibasilar atelectasis. Spoke with Dr. Rivas, he agrees with assessment and plan, patient will be transferred to the ICU for blood pressure management. Review of Systems Review of Systems: Yes all other systems are reviewed and are negative Neurologic: Reports confusion (TBI baseline) Psychiatric: Psychiatric: Reports confusion (TBI baseline) [facility] Past Medical History Medical History Aphasia Chondrocostal junction syndrome Delusional disorder Dementia Disruptive mood dysregulation disorder Gallstones GERD (gastroesophageal reflux disease) Hx of migraine headaches Hyperlipidemia Myopia Obsessive compulsive disorder Raynauds syndrome Traumatic brain injury Family History Family History Maternal Grandmother Breast cancer Social History Social History Household Members: Other Housing: Senior Living Do you presently have visiting nurse or other home services: No Unable to assess alcohol history related to: Unknown Patient Tobacco Use Status: Never used Tobacco e-Cigarette/Vaping Use: Never Used Use of substances other than those prescribed or required for medical reasons: No Currently Displaying Signs/Symptoms of Drug Intoxication Withdrawal: No Spiritual Healthcare Practices: UNKNOWN [employer]alian Healthcare Practices: UNKNOWN Cultural Healthcare Practices: UNKNOWN Advance Directives: Yes Advance Directives on File: Yes Advance Directives Date on File: 12/03/21 Recently lost weight without trying: Unsure Nutrition Risks: On aspiration precautions and Poor intake 0-25% >4 days Patient : No : No Poor oral hygiene: No service: No Current occupational status: disabled Meds Allergies Allergy/AdvReac Type Severity Reaction Status Date / Time No Known Allergies Allergy Verified 12/23/21 17:09 Active Medications: Current Medications Acetaminophen (Acetaminophen 325 Mg Tablet) 650 mg PO Q6H PRN PRN Reason: Pain, Mild (Pain Scale 1-3) Aripiprazole (Aripiprazole 5 Mg Tablet) 2.5 mg PO DAILY PRIYANKA Calcium Carbonate (Calcium Carbonate 750 Mg Tab.Chew) 750 mg PO Q8H PRN PRN Reason: Heartburn Escitalopram Oxalate (Escitalopram Oxalate 10 Mg Tablet) 10 mg PO DAILY PRIYANKA Famotidine (Famotidine 20 Mg Tablet) 40 mg PO DAILY PRIYANKA Dextrose/Sodium Chloride (D5ns) 1,000 mls @ 100 mls/hr IVCONT .Q10H [facility] Last Admin: 01/06/22 16:38 Dose: 100 mls/hr Documented by: Ceftriaxone Sodium 1 gm/ (Sodium Chloride) 50 mls @ 100 mls/hr IV Q24H [facility] Last Infusion: 01/06/22 23:06 Dose: Infused Documented by: Metronidazole (Flagyl) 500 mg in 100 mls @ 100 mls/hr IV Q8H [facility] Last Admin: 01/06/22 23:03 Dose: 100 mls/hr Documented by: Lamotrigine (Lamotrigine 100 Mg Tablet) 150 mg PO BID [facility] Last Admin: 01/06/22 22:34 Dose: Not Given Documented by: Loperamide HCl (Loperamide Hcl 2 Mg Capsule) 2 mg PO Q6H PRN PRN Reason: Diarrhea Loratadine (Loratadine 10 Mg Tablet) 10 mg PO DAILY [facility] Oxycodone HCl (Oxycodone Hcl Immed Release 5 Mg Tablet) 5 mg PO Q4H PRN PRN Reason: Pain, Severe (Pain Scale 7-10) Last Admin: 01/06/22 16:35 Dose: 5 mg Documented by: Senna (Sennosides 8.6 Mg Tablet) 8.6 mg PO Q24H PRN PRN Reason: Constipation Sodium Chloride (0.9 % Sodium Chloride Flush 3 Ml Syringe) 3 ml IVFLUSH QSHIFT [facility] Last Admin: 01/06/22 16:43 Dose: Not Given Documented by: Sodium Chloride (Sodium Chloride 0.65 % Nasal 44 Ml Sprbtl) 1 spray NOSTRIL-B Q8H PRN PRN Reason: Nasal Congestion Home Medications Medication Instructions Recorded Confirmed Last Taken Type acetaminophen 325 mg tablet 650 mg PO Q6H PRN 03/17/21 01/06/22 Unknown History famotidine 40 mg tablet 40 mg PO DAILY 03/17/21 01/06/22 01/05/22 History ibuprofen 600 mg tablet 600 mg PO Q8H PRN 03/17/21 01/06/22 Unknown History loperamide 2 mg capsule 2 mg PO Q6H PRN 03/17/21 01/06/22 Unknown History omeprazole 20 mg capsule,delayed 20 mg PO DAILY 0601/06/22 01/05/22 History release sennosides 8.6 mg tablet (Natural 8.6 mg PO Q24H PRN 03/17/21 01/06/22 Unknown History Senna Laxative) sodium chloride 0.65 % nasal spray 1 spray INTRANASAL Q8H PRN 03/17/21 01/06/22 Unknown History aerosol ([place] Nasal) aripiprazole 5 mg tablet (Abilify) 2.5 mg PO DAILY 12/22/21 01/06/22 01/05/22 History calcium carbonate 500 mg calcium 500 mg PO Q8H PRN 12/22/21 01/06/22 Unknown History (1,250 mg) chewable tablet cetirizine 10 mg tablet 10 mg PO DAILY 12/22/21 01/06/22 Unknown History citalopram 20 mg tablet 20 mg PO DAILY 12/22/21 01/06/22 01/05/22 History clozapine 100 mg tablet (Clozaril) 100 mg PO BEDTIME 12/22/21 01/06/22 01/05/22 History lamotrigine 150 mg tablet 150 mg PO BID 12/22/21 01/06/22 01/05/22 History oxycodone-acetaminophen 5 mg-325 1 tab PO Q4H PRN 12/22/21 01/06/22 Unknown History mg tablet Physical Exam Vital Signs: Vital Signs: Last Vital Signs Temp 102.0 F H 01/06/22 21:12 Pulse 85 01/06/22 23:06 Resp 20 01/06/22 23:06 BP 68/44 L 01/06/22 23:36 Pulse Ox 95 01/06/22 23:06 BMI result Body Mass Index 38.2 Const: Other: pt sleeping but arousable, making noises General: cooperative, comfortable, no acute distress, confusion (TBI baseline) and tired appearing Orientation/consciousness: oriented to person, No oriented to place, No oriented to time and confusion (TBI baseline) Limitations: other limitations (TBI) HEENT: Head: Yes normal to inspection Eyes: General: appearance normal, both eyes and all related structures Neck: Neck: Yes normal visual inspection and Yes full ROM Resp: Effort & Inspection: normal respiratory effort Auscultation: clear to auscultation bilaterally Cardio: Rate: regular rate Rhythm: regular rhythm Heart sounds: normal S1 and S2 GI: Inspection: Yes normal to inspection, Yes scar and Yes other (multiple areas of ecchymosis on abdomen, yellow and brownish-red colors) Palpation (GI): Soft to palpation, nontender and Hernia present ventral Neuro: General: oriented to person, No oriented to place, No oriented to time and confusion (TBI baseline) Extrem: General: Yes normal to inspection Results Labs CBC & Chem 7: 01/08/22 05:38 01/08/22 05:20 Labs: Short CBC 01/06/22 Range/Units 11:24 WBC 7.5 (4.8-10.8) X10*3/uL Hgb 12.9 (12.0-16.0) g/dl Hct 41.6 (37.0-47.0) % Plt Count 496 H (160-400) X10*3/uL BMP 01/06/22 11:24 Sodium 142 Potassium 3.8 Chloride 106 Carbon Dioxide 28 BUN 12 Creatinine 0.86 Calcium 9.8 Liver Function 01/06/22 Range/Units 11:24 Total Bilirubin 1.2 H (0.0-1.0) mg/dL AST 237 H (5-31) U/L ALT 297 H (0-31) U/L Alkaline Phosphatase 403 H (39-117) U/L Albumin 3.9 (3.5-5.0) g/dL Urine 01/06/22 Range/Units 14:27 Urine Color YELLOW Urine Appearance CLEAR Urine pH 6.5 (5.0-8.0) Ur Specific [place] 1.010 (1.005-1.025) Urine Protein NEG (NEG-TRACE) MG/DL Urine Glucose (UA) NEG (NEG) MG/DL Imaging CT scan - abdomen: Radiologist's impression: CT/CT abdomen pelvis w con IMPRESSION: Cholelithiasis with stone remaining at the gallbladder neck. Mild inflammatory changes surrounding the gallbladder. This remains concerning for cholecystitis. ? Otherwise no acute finding in the abdomen or pelvis. Abdominal wall defect remains with herniation of a portion of the stomach. This is unchanged.? Assessment and Plan (1) Pneumonia: Status: Acute pt on zosyn and 2L NC, satting 95% (2) Abnormal LFTs: Status: Acute follow/trend (3) Acute alteration in mental status: Status: Acute (4) Traumatic brain injury: Status: Acute Baseline (5) Sepsis associated hypotension: Status: Acute Levophed, monitor, pt is fluid overloaded, CVP is 10, gave 40 IV lasix and monitor (6) Acute calculous cholecystitis: Status: Acute Zosyn, follow LFT's, reassess with surgery in AM for possible cholecystectomy, surgical consult appreciated
[2022-01-07] VITALS (40 sets, daily range): BP systolic 76–117; BP diastolic 36–59; PULSE 57–91; RESP 12–26; TEMP 36.4–37.4; O2SAT 90–99; BMI 26.6; BMI 27.3
[2022-01-07 00:04] LABS: Reflex Lactate? Lactic Acid Added
[2022-01-07 01:11] LABS: ~Lactic Acid-LAB USE ONLY 2.2 mmol/L (0.5-2.0)
[2022-01-07] MEDS: 0.9 % Sodium Chloride Flush 3 ML SYRINGE IVFLUSH (01:41)
--- NOTE | 2022-01-07 02:15 | PC.NURSE ---
PT TO ICU FROM ER IN NO ACUTE DISTRESS. O2 ON AT 2L VIA NC. O2 SAT 91-94%. PT IS LETHARGIC AND MOSTLY SLEEPING BUT IS AROUSABLE. DOES NOT ANSWER QUESTIONS, WILL OPEN EYEY TO NAME. DOES NOT FOLLOW COMMANDS. SBP 80'S. CENTRAL LINE PLACED BY KIRSTIN PENG PAC INTO LIJ. PORTABLE CXR CONFIRMED PLACEMENT. STARTED ON LEVOPHED AND TITRATED UP TO 0.12 MCG/KG/MIN. BP IMPROVED. OLVERA EMPTIED FOR 375 ML.
[2022-01-07 02:29] LABS: Reflex Lactate? 2 Y
[2022-01-07] MEDS: Furosemide 40 MG/4 ML VIAL IVPUSH (03:10)
[2022-01-07 05:34] LABS: Basophils Absolute Auto 0.1 X10*3/uL (0.0-0.2); Basophils Percent Auto 0.3 % (0-2); Eosinophils Absolute Auto 0.2 X10*3/uL (0.0-0.4); Eosinophils Percent Auto 0.8 % (0-4); Hematocrit 38.5 % (37.0-47.0); Imm Gran Abs Auto 0.08 X10*3/uL (0.00-0.03); Imm Gran Pct Auto 0.4 % (0.0-0.4); Lymphocytes Absolute Auto 0.8 X10*3/uL (1.2-4.9); Lymphocytes Percent Auto 4.4 % (20-40); MANUAL DIFF FLAG SCAN; Mean Corpuscular HGB Conc 31.2 g/dl (31.0-35.0); Mean Corpuscular Hemoglobin 28.6 pg (27.0-33.0); Mean Corpuscular Volume 91.9 fL (80.0-98.0); Mean Platelet Volume 9.4 fL (9.4-12.3); Monocytes Absolute Auto 0.6 X10*3/uL (0.1-1.2); Monocytes Percent Auto 3.2 % (2-11); Neutrophils Absolute Auto 17.4 x10*3/uL (2.0-8.3); Neutrophils Percent Auto 90.9 % (45-73); Platelet Count 443 X10*3/uL (160-400); Red Blood Count 4.19 X10*6/uL (4.20-5.50); Red Cell Distribution Width 14.9 % (11.0-16.0); SCAN SMEAR FLAG 1; White Blood Count 19.1 X10*3/uL (4.8-10.8)
[2022-01-07 05:44] LABS: ~Lactic Acid-LAB USE ONLY 1.2 mmol/L (0.5-2.0)
[2022-01-07 05:53] LABS: Alanine Aminotransferase 340 U/L (0-31); Albumin Level 3.1 g/dL (3.5-5.0); Alkaline Phosphatase 368 U/L (39-117); Anion Gap 14 (12-20); Aspartate Amino Transferase 356 U/L (5-31); Bilirubin Total 1.3 mg/dL (0.0-1.0); Blood Urea Nitrogen 11 mg/dL (9-16); Carbon Dioxide 20 mmol/L (22-29); Chloride 113 mmol/L (96-108); Creatinine Clr Calc Pharmacy 75.7; Estimated Glomerular Filt Rate > 60; Glucose Fasting 200 mg/dL (60-99); Potassium 3.5 mmol/L (3.3-5.1); Sodium 143 mmol/L (135-145); Total Protein 5.6 g/dL (6.5-8.0)
[2022-01-07 05:55] LABS: SLIDE REVIEW VERIFIED
[2022-01-07 05:57] LABS: INTERNATIONAL NORM RATIO 1.3 (0.9-1.1); Prothrombin Time 15.4 SEC (9.9-13.0)
[2022-01-07 05:59] LABS: Partial Thromboplastin Time 37.3 SEC (24.1-38.0)
--- NOTE | 2022-01-07 06:30 | PC.NURSE ---
after tlc insertion, cvp done...10. pt received lasix iv. cvp after lasix was 6. u/o 50-120 ml/hr after lasix. levophed titrated for low bp up to 0.22 mcg/kg/min. pt remains lethargic and mostly sleeping but is arousable to name. may answer yes or no but no further speech. attempts to follow simple commands ie turning on side or sqeezing this nurse's hand. falls asleep quickly. pt is mostly mouth breathing nasal cannula changed to oximizer mask at 7L. no acute resp distress.
[2022-01-07] MEDS: Piperacillin Sodium/Tazobactam 4.5 GM in 0.9 % Sodium Chloride 100 ML IV ×3 (08:39→20:12)
--- NOTE | 2022-01-07 08:52 | P.CONGS_ITS ---
History of Present Illness Consult details Consult date: 01/07/22 Narrative: [age] year old female referred because of gallstones. She had been seen by the surgical service is 12/22/2021 after she had been admitted for altered mental status. She had history of falling prior to that. At that time, she was noted to have some elevation of her LFTs so a CT scan of the abdomen was done which showed gallstones, thickening of the gallbladder wall. However, not of any right upper quadrant pain and tenderness clinically at that time. She also was tolerating regular diet then. She was also being treated for a pneumonia with IV antibiotics. She did continue to have some elevated LFTs, mostly AST and ALT. She had a repeat ultrasound last Tuesday, January 01 with did not reveal any pericholecystic fluid nor any other inflammatory changes around the gallbladder. She was actually discharged the shelter. She was brought back yesterday because of hypotension. She is currently in the ICU for clinical sepsis. I have been reconsulted because of her history of gallstones. Review of Systems Review of Systems: Patient is not communicative so a good review of systems is unavailable at this time [facility] Past Medical History Medical History Aphasia Chondrocostal junction syndrome Delusional disorder Dementia Disruptive mood dysregulation disorder Gallstones GERD (gastroesophageal reflux disease) Hx of migraine headaches Hyperlipidemia Myopia Obsessive compulsive disorder Raynauds syndrome Traumatic brain injury Family History Family History Maternal Grandmother Breast cancer Social History Social History Household Members: Other Housing: Senior Care Do you presently have visiting nurse or other home services: No Unable to assess alcohol history related to: Unknown Patient Tobacco Use Status: Never used Tobacco e-Cigarette/Vaping Use: Never Used Use of substances other than those prescribed or required for medical reasons: No Currently Displaying Signs/Symptoms of Drug Intoxication Withdrawal: No Spiritual Healthcare Practices: UNKNOWN Hinduism Healthcare Practices: UNKNOWN Cultural Healthcare Practices: UNKNOWN Advance Directives: Yes Advance Directives on File: Yes Advance Directives Date on File: 12/03/21 Recently lost weight without trying: Unsure Nutrition Risks: On aspiration precautions and Poor intake 0-25% >4 days Patient : No : No Poor oral hygiene: No service: No Current occupational status: disabled Meds Allergies Allergy/AdvReac Type Severity Reaction Status Date / Time No Known Allergies Allergy Verified 12/23/21 17:09 Active Medications: Current Medications Acetaminophen (Acetaminophen 325 Mg Tablet) 650 mg PO Q6H PRN PRN Reason: Pain, Mild (Pain Scale 1-3) Aripiprazole (Aripiprazole 5 Mg Tablet) 2.5 mg PO DAILY [facility] Last Admin: 01/07/22 08:40 Dose: Not Given Documented by: Calcium Carbonate (Calcium Carbonate 750 Mg Tab.Chew) 750 mg PO Q8H PRN PRN Reason: Heartburn Escitalopram Oxalate (Escitalopram Oxalate 10 Mg Tablet) 10 mg PO DAILY [facility] Last Admin: 01/07/22 08:40 Dose: Not Given Documented by: Famotidine (Famotidine 20 Mg Tablet) 40 mg PO DAILY [facility] Last Admin: 01/07/22 08:40 Dose: Not Given Documented by: Norepinephrine Bitartrate (Levophed) 8 mg in 250 mls @ 0 mls/hr IVCONT .Q0M [facility]; Protocol Last Titration: 01/07/22 08:49 Dose: 0.28 mcg/kg/min, 54.77 mls/hr Documented by: Piperacillin Sod/Tazobactam (Sod 4.5 gm/ Sodium Chloride) 100 mls @ 200 mls/hr IV Q6H [facility] Last Admin: 01/07/22 08:39 Dose: 200 mls/hr Documented by: Lamotrigine (Lamotrigine 100 Mg Tablet) 150 mg PO BID [facility] Last Admin: 01/07/22 08:41 Dose: Not Given Documented by: Loperamide HCl (Loperamide Hcl 2 Mg Capsule) 2 mg PO Q6H PRN PRN Reason: Diarrhea Loratadine (Loratadine 10 Mg Tablet) 10 mg PO DAILY [facility] Last Admin: 01/07/22 08:41 Dose: Not Given Documented by: Oxycodone HCl (Oxycodone Hcl Immed Release 5 Mg Tablet) 5 mg PO Q4H PRN PRN Reason: Pain, Severe (Pain Scale 7-10) Last Admin: 01/06/22 16:35 Dose: 5 mg Documented by: Senna (Sennosides 8.6 Mg Tablet) 8.6 mg PO Q24H PRN PRN Reason: Constipation Sodium Chloride (0.9 % Sodium Chloride Flush 3 Ml Syringe) 3 ml IVFLUSH QSHIFT [facility] Last Admin: 01/07/22 08:05 Dose: Not Given Documented by: Sodium Chloride (Sodium Chloride 0.65 % Nasal 44 Ml Sprbtl) 1 spray NOSTRIL-B Q8H PRN PRN Reason: Nasal Congestion Home Medications Medication Instructions Recorded Confirmed Last Taken Type acetaminophen 325 mg tablet 650 mg PO Q6H PRN 03/17/21 01/06/22 Unknown History famotidine 40 mg tablet 40 mg PO DAILY 03/17/21 01/06/22 01/05/22 History ibuprofen 600 mg tablet 600 mg PO Q8H PRN 03/17/21 01/06/22 Unknown History loperamide 2 mg capsule 2 mg PO Q6H PRN 03/17/21 01/06/22 Unknown History omeprazole 20 mg capsule,delayed 20 mg PO DAILY 03/17/21 01/06/22 01/05/22 History release sennosides 8.6 mg tablet (Natural 8.6 mg PO Q24H PRN 03/17/21 01/06/22 Unknown History Senna Laxative) sodium chloride 0.65 % nasal spray 1 spray INTRANASAL Q8H PRN 03/17/21 01/06/22 Unknown History aerosol ([place]ard Nasal) aripiprazole 5 mg tablet (Abilify) 2.5 mg PO DAILY 12/22/21 01/06/22 01/05/22 History calcium carbonate 500 mg calcium 500 mg PO Q8H PRN 12/22/21 01/06/22 Unknown History (1,250 mg) chewable tablet cetirizine 10 mg tablet 10 mg PO DAILY 12/22/21 01/06/22 Unknown History citalopram 20 mg tablet 20 mg PO DAILY 12/22/21 01/06/22 01/05/22 History clozapine 100 mg tablet (Clozaril) 100 mg PO BEDTIME 12/22/21 01/06/22 01/05/22 History lamotrigine 150 mg tablet 150 mg PO BID 12/22/21 01/06/22 01/05/22 History oxycodone-acetaminophen 5 mg-325 1 tab PO Q4H PRN 12/22/21 01/06/22 Unknown History mg tablet Physical Exam Vital Signs: Vital Signs: Last Vital Signs Temp 97.6 F 01/07/22 08:00 Pulse 62 01/07/22 08:49 Resp 15 01/07/22 08:00 BP 102/41 L 01/07/22 08:49 Pulse Ox 95 01/07/22 08:00 BMI result Body Mass Index 27.3 Const: Other: Asleep General: comfortable and no acute distress Resp: Effort & Inspection: normal respiratory effort Cardio: Rate: regular rate GI: Other: No obvious tenderness on the right upper quadrant at this time even with deep palpation Palpation (GI): Soft to palpation, not firm, no guarding and not rigid Results Labs Result diagrams: 01/07/22 05:07 01/07/22 05:07 Labs: Abnormal lab results 01/06/22 01/06/22 01/06/22 Range/Units 11:24 11:24 14:27 WBC (4.8-10.8) X10*3/uL RBC (4.20-5.50) X10*6/uL Plt Count 496 H (160-400) X10*3/uL MPV 9.2 L (9.4-12.3) fL Immature Gran % (Auto) 0.5 H (0.0-0.4) % Neut % (Auto) (45-73) % Lymph % (Auto) 14.4 L (20-40) % Eos % (Auto) 11.4 H (0-4) % Lymph # (Auto) 1.1 L (1.2-4.9) X10*3/uL Eos # (Auto) 0.9 H (0.0-0.4) X10*3/uL Abs Immat Gran (auto) 0.04 H (0.00-0.03) X10*3/uL Absolute Neuts (auto) (2.0-8.3) x10*3/uL PT (9.9-13.0) SEC INR (0.9-1.1) Chloride (96-108) mmol/L Carbon Dioxide (22-29) mmol/L Fasting Glucose (60-99) mg/dL Lactic Acid (0.5-2.0) mmol/L Lactic Acid F/U @ 2Hr (0.5-2.0) mmol/L Calcium (8.4-10.2) mg/dL Total Bilirubin 1.2 H (0.0-1.0) mg/dL AST 237 H (5-31) U/L ALT 297 H (0-31) U/L Alkaline Phosphatase 403 H (39-117) U/L Total Protein (6.5-8.0) g/dL Albumin (3.5-5.0) g/dL Urine Blood 2+ H (NEG) 01/06/22 01/07/22 01/07/22 Range/Units 21:59 00:23 05:07 WBC 19.1 H (4.8-10.8) X10*3/uL RBC 4.19 L (4.20-5.50) X10*6/uL Plt Count 443 H (160-400) X10*3/uL MPV (9.4-12.3) fL Immature Gran % (Auto) (0.0-0.4) % Neut % (Auto) 90.9 H (45-73) % Lymph % (Auto) 4.4 L (20-40) % Eos % (Auto) (0-4) % Lymph # (Auto) 0.8 L (1.2-4.9) X10*3/uL Eos # (Auto) (0.0-0.4) X10*3/uL Abs Immat Gran (auto) 0.08 H (0.00-0.03) X10*3/uL Absolute Neuts (auto) 17.4 H (2.0-8.3) x10*3/uL PT (9.9-13.0) SEC INR (0.9-1.1) Chloride (96-108) mmol/L Carbon Dioxide (22-29) mmol/L Fasting Glucose (60-99) mg/dL Lactic Acid 2.9 H* (0.5-2.0) mmol/L Lactic Acid F/U @ 2Hr 2.2 H* (0.5-2.0) mmol/L Calcium (8.4-10.2) mg/dL Total Bilirubin (0.0-1.0) mg/dL AST (5-31) U/L ALT (0-31) U/L Alkaline Phosphatase (39-117) U/L Total Protein (6.5-8.0) g/dL Albumin (3.5-5.0) g/dL Urine Blood (NEG) 01/07/22 01/07/22 Range/Units 05:07 05:07 WBC (4.8-10.8) X10*3/uL RBC (4.20-5.50) X10*6/uL Plt Count (160-400) X10*3/uL MPV (9.4-12.3) fL Immature Gran % (Auto) (0.0-0.4) % Neut % (Auto) (45-73) % Lymph % (Auto) (20-40) % Eos % (Auto) (0-4) % Lymph # (Auto) (1.2-4.9) X10*3/uL Eos # (Auto) (0.0-0.4) X10*3/uL Abs Immat Gran (auto) (0.00-0.03) X10*3/uL Absolute Neuts (auto) (2.0-8.3) x10*3/uL PT 15.4 H (9.9-13.0) SEC INR 1.3 H (0.9-1.1) Chloride 113 H (96-108) mmol/L Carbon Dioxide 20 L (22-29) mmol/L Fasting Glucose 200 H (60-99) mg/dL Lactic Acid (0.5-2.0) mmol/L Lactic Acid F/U @ 2Hr (0.5-2.0) mmol/L Calcium 8.0 L D (8.4-10.2) mg/dL Total Bilirubin 1.3 H (0.0-1.0) mg/dL AST 356 H (5-31) U/L ALT 340 H (0-31) U/L Alkaline Phosphatase 368 H (39-117) U/L Total Protein 5.6 L D (6.5-8.0) g/dL Albumin 3.1 L D (3.5-5.0) g/dL Urine Blood (NEG) Short CBC 01/06/22 01/07/22 Range/Units 11:24 05:07 WBC 7.5 19.1 H (4.8-10.8) X10*3/uL Hgb 12.9 12.0 (12.0-16.0) g/dl Hct 41.6 38.5 (37.0-47.0) % Plt Count 496 H 443 H (160-400) X10*3/uL BMP 01/06/22 01/07/22 11:24 05:07 Sodium 142 143 Potassium 3.8 3.5 Chloride 106 113 H Carbon Dioxide 28 20 L BUN 12 11 Creatinine 0.86 0.78 Calcium 9.8 8.0 L D Liver Function 01/06/22 01/07/22 Range/Units 11:24 05:07 Total Bilirubin 1.2 H 1.3 H (0.0-1.0) mg/dL AST 237 H 356 H (5-31) U/L ALT 297 H 340 H (0-31) U/L Alkaline Phosphatase 403 H 368 H (39-117) U/L Albumin 3.9 3.1 L D (3.5-5.0) g/dL Urine 01/06/22 Range/Units 14:27 Urine Color YELLOW Urine Appearance CLEAR Urine pH 6.5 (5.0-8.0) Ur Specific [place] 1.010 (1.005-1.025) Urine Protein NEG (NEG-TRACE) MG/DL Urine Glucose (UA) NEG (NEG) MG/DL All other labs normal. Imaging Additional studies: Laboratory Results WBC 19.1 X10*3/uL (4.8-10.8) H 01/07/22 05:07 RBC 4.19 X10*6/uL (4.20-5.50) L 01/07/22 05:07 Hgb 12.0 g/dl (12.0-16.0) 01/07/22 05:07 Hct 38.5 % (37.0-47.0) 01/07/22 05:07 MCV 91.9 fL (80.0-98.0) 01/07/22 05:07 MCH 28.6 pg (27.0-33.0) 01/07/22 05:07 MCHC 31.2 g/dl (31.0-35.0) 01/07/22 05:07 RDW 14.9 % (11.0-16.0) 01/07/22 05:07 Plt Count 443 X10*3/uL (160-400) H 01/07/22 05:07 MPV 9.4 fL (9.4-12.3) 01/07/22 05:07 Immature Gran % (Auto) 0.4 % (0.0-0.4) 01/07/22 05:07 Neut % (Auto) 90.9 % (45-73) H 01/07/22 05:07 Lymph % (Auto) 4.4 % (20-40) L 01/07/22 05:07 [place] % (Auto) 3.2 % (2-11) 01/07/22 05:07 Eos % (Auto) 0.8 % (0-4) 01/07/22 05:07 Baso % (Auto) 0.3 % (0-2) 01/07/22 05:07 Lymph # (Auto) 0.8 X10*3/uL (1.2-4.9) L 01/07/22 05:07 [place] # (Auto) 0.6 X10*3/uL (0.1-1.2) 01/07/22 05:07 Eos # (Auto) 0.2 X10*3/uL (0.0-0.4) 01/07/22 05:07 Baso # (Auto) 0.1 X10*3/uL (0.0-0.2) 01/07/22 05:07 Abs Immat Gran (auto) 0.08 X10*3/uL (0.00-0.03) H 01/07/22 05:07 Absolute Neuts (auto) 17.4 x10*3/uL (2.0-8.3) H 01/07/22 05:07 Absolute Nucleated RBC 0.000 X10*3/uL (0.0-0.012) 01/07/22 05:07 Nucleated RBC % (auto) 0.0 /100WBC (0.0-0.2) 01/07/22 05:07 Smear Tech's Comments VERIFIED 01/07/22 05:07 PT 15.4 SEC (9.9-13.0) H 01/07/22 05:07 INR 1.3 (0.9-1.1) H 01/07/22 05:07 APTT 37.3 SEC (24.1-38.0) 01/07/22 05:07 Sodium 143 mmol/L (135-145) 01/07/22 05:07 Potassium 3.5 mmol/L (3.3-5.1) 01/07/22 05:07 Chloride 113 mmol/L (96-108) H 01/07/22 05:07 Carbon Dioxide 20 mmol/L (22-29) L 01/07/22 05:07 Anion Gap 14 (12-20) 01/07/22 05:07 BUN 11 mg/dL (9-16) 01/07/22 05:07 Creatinine 0.78 mg/dL (0.5-1.4) 01/07/22 05:07 Estim Creat Clear Calc 75.7 01/07/22 05:07 Estimated GFR > 60 01/07/22 05:07 Random Glucose 113 mg/dL (60-115) 01/06/22 11:24 Fasting Glucose 200 mg/dL (60-99) H 01/07/22 05:07 Lactic Acid 2.9 mmol/L (0.5-2.0) H* 01/06/22 21:59 Lactic Acid F/U @ 2Hr 2.2 mmol/L (0.5-2.0) H* 01/07/22 00:23 Lactic Acid F/U @ 4Hr 1.2 mmol/L (0.5-2.0) 01/07/22 05:07 Calcium 8.0 mg/dL (8.4-10.2) L D 01/07/22 05:07 Total Bilirubin 1.3 mg/dL (0.0-1.0) H 01/07/22 05:07 AST 356 U/L (5-31) H 01/07/22 05:07 ALT 340 U/L (0-31) H 01/07/22 05:07 Alkaline Phosphatase 368 U/L (39-117) H 01/07/22 05:07 Ammonia 33 umol/L (13-55) 01/06/22 11:24 Troponin I High Sens < 3.5 ng/L (<3.5-17.0) 01/06/22 11:24 B-Natriuretic Peptide 22 pg/mL (<100) 01/06/22 11:24 Total Protein 5.6 g/dL (6.5-8.0) L D 01/07/22 05:07 Albumin 3.1 g/dL (3.5-5.0) L D 01/07/22 05:07 Lipase 55 U/L (8-78) 01/06/22 11:24 Urine Color YELLOW 01/06/22 14:27 Urine Appearance CLEAR 01/06/22 14:27 Urine pH 6.5 (5.0-8.0) 01/06/22 14:27 Ur Specific [place] 1.010 (1.005-1.025) 01/06/22 14:27 Urine Protein NEG MG/DL (NEG-TRACE) 01/06/22 14:27 Urine Glucose (UA) NEG MG/DL (NEG) 01/06/22 14:27 Urine Ketones NEG MG/DL (NEG) 01/06/22 14:27 Urine Blood 2+ (NEG) H 01/06/22 14:27 Urine Nitrite NEG (NEG) 01/06/22 14:27 Ur Leukocyte Esterase NEG (NEG) 01/06/22 14:27 Urine RBC 1-4 /HPF (0) 01/06/22 14:27 Urine WBC 0-2 /HPF (0-4) 01/06/22 14:27 Ur Squamous Epith Cells TRACE /LPF 01/06/22 14:27 Urine Bacteria NONE /LPF 01/06/22 14:27 COVID-19 ([place]) Negative (Negative) 01/06/22 11:24 COVID-19 Clin Com See Note 01/06/22 11:24 Influenza Type A ([place]) Negative (Negative) 01/06/22 11:24 Influenza Type B ([place]) Negative (Negative) 01/06/22 11:24 Influenza A & B Note See Note 01/06/22 11:24 Impressions Abdomen/Pelvis CT 01/06/22 13:21 IMPRESSION: Cholelithiasis with stone remaining at the gallbladder neck. Mild inflammatory changes surrounding the gallbladder. This remains concerning for cholecystitis. Otherwise no acute finding in the abdomen or pelvis. Abdominal wall defect remains with herniation of a portion of the stomach. This is unchanged. Fleischner guidelines were followed. Head CT 01/06/22 13:21 IMPRESSION: No acute intracranial pathology. Chronic changes of left-sided craniotomy with underlying encephalomalacia. Chest X-Ray 01/07/22 01:20 IMPRESSION: Right IJ central line tip in the region of the cavoatrial junction. Low lung volumes with somewhat streaky bibasilar opacities which may represent atelectasis. Assessment and Plan (1) Biliary calculus with obstruction without cholecystitis: Status: Acute She has been readmitted because of clinical sepsis. She is hypotensive and had been started on pressors and currently he is hemodynamically better. There is no other obvious source of infection. Her ultrasound last Tuesday showed sludge without any gallstone on the neck although her scan suggests a gallstone on the neck of the gallbladder. Clinically she still does not appear to have any significant tenderness on the right upper quadrant. However, in view of the current sepsis without any other obvious source, I would recommend going ahead with a tube cholecystostomy for now. We can continue with IV antibiotics and other supportive treatment with fluid resuscitation. Will eventually plan on doing a cholecystectomy down the line if this is deemed to be this source of her infection. I have discussed the above with the tape machine tailer Dr. Rivas. I will follow along while she is in the hospital. Procedures Date of Service Date of Service: 01/07/22
--- NOTE | 2022-01-07 10:23 | PC.NURSE ---
Report given to IR nurse, pt brought to IR at 1000.
--- NOTE | 2022-01-07 11:11 | MHC.CM.PN ---
Pt is a LTC resident from [facility] now in ICU on pressor support for sepsis. Pt unable to participate in assessment: information obtained from EMR and [facility] staff. Pt has a legal guardian, sister Mary with copy in chart. KULWINDER also in chart. Referred back to [facility]
[2022-01-07] MEDS: fentaNYL citrate/PF 100 MCG/2 ML VIAL 50 MCG IVPUSH (12:38)
--- NOTE | 2022-01-07 12:39 | PM.CCPN ---
Subjective Subjective Date of Service: 01/07/22 Interval History: 62-year-old female status post cholecystostomy drainage of what appeared to be 2 weeks of acute cholecystitis treated with antibiotics and we added vancomycin to the Zosyn on this particular occasion as she did come in with a septic shock picture hypotensive responsive to fluids and requiring pressors cultures are pending pressure and hemodynamics restored including urine output and hyperchloremic picture is iatrogenic from normal saline Critical Care Time (minutes): 60 Physical Exam Vital Signs: Vital Signs: Last Vital Signs Temp 97.6 F 01/07/22 08:00 Pulse 69 01/07/22 10:00 Resp 17 01/07/22 10:00 BP 108/43 L 01/07/22 10:00 Pulse Ox 99 01/07/22 10:00 BMI result Body Mass Index 27.3 Status post drainage requiring only 50 mcg of IV fentanyl and the patient's eyes are closed but awake good bilateral carotid upstrokes Lungs are are clear no adventitious sounds and abdomen is silent and tender No peripheral edema and no skin breakdown and no acrocyanosis Objective Data Labs CBC & Chem 7: 01/07/22 05:07 01/07/22 05:07 Labs: Laboratory Results - last 24 hr 01/06/22 01/06/22 01/07/22 14:27 21:59 00:23 WBC RBC Hgb Hct MCV MCH MCHC RDW Plt Count MPV Immature Gran % (Auto) Neut % (Auto) Lymph % (Auto) [place] % (Auto) Eos % (Auto) Baso % (Auto) Lymph # (Auto) [place] # (Auto) Eos # (Auto) Baso # (Auto) Abs Immat Gran (auto) Absolute Neuts (auto) Absolute Nucleated RBC Nucleated RBC % (auto) Smear Tech's Comments PT INR APTT Sodium Potassium Chloride Carbon Dioxide Anion Gap BUN Creatinine Estim Creat Clear Calc Estimated GFR Fasting Glucose Lactic Acid 2.9 H* Lactic Acid F/U @ 2Hr 2.2 H* Lactic Acid F/U @ 4Hr Calcium Total Bilirubin AST ALT Alkaline Phosphatase Total Protein Albumin Urine Color YELLOW Urine Appearance CLEAR Urine pH 6.5 Ur Specific [place] 1.010 Urine Protein NEG Urine Glucose (UA) NEG Urine Ketones NEG Urine Blood 2+ H Urine Nitrite NEG Ur Leukocyte Esterase NEG Urine RBC 1-4 Urine WBC 0-2 Ur Squamous Epith Cells TRACE Urine Bacteria NONE 01/07/22 01/07/22 01/07/22 05:07 05:07 05:07 WBC 19.1 H RBC 4.19 L Hgb 12.0 Hct 38.5 MCV 91.9 MCH 28.6 MCHC 31.2 RDW 14.9 Plt Count 443 H MPV 9.4 Immature Gran % (Auto) 0.4 Neut % (Auto) 90.9 H Lymph % (Auto) 4.4 L [place] % (Auto) 3.2 Eos % (Auto) 0.8 Baso % (Auto) 0.3 Lymph # (Auto) 0.8 L [place] # (Auto) 0.6 Eos # (Auto) 0.2 Baso # (Auto) 0.1 Abs Immat Gran (auto) 0.08 H Absolute Neuts (auto) 17.4 H Absolute Nucleated RBC 0.000 Nucleated RBC % (auto) 0.0 Smear Tech's Comments VERIFIED PT 15.4 H INR 1.3 H APTT Sodium 143 Potassium 3.5 Chloride 113 H Carbon Dioxide 20 L Anion Gap 14 BUN 11 Creatinine 0.78 Estim Creat Clear Calc 75.7 Estimated GFR > 60 Fasting Glucose 200 H Lactic Acid Lactic Acid F/U @ 2Hr Lactic Acid F/U @ 4Hr Calcium 8.0 L D Total Bilirubin 1.3 H AST 356 H ALT 340 H Alkaline Phosphatase 368 H Total Protein 5.6 L D Albumin 3.1 L D Urine Color Urine Appearance Urine pH Ur Specific [place] Urine Protein Urine Glucose (UA) Urine Ketones Urine Blood Urine Nitrite Ur Leukocyte Esterase Urine RBC Urine WBC Ur Squamous Epith Cells Urine Bacteria 01/07/22 01/07/22 05:07 05:07 WBC RBC Hgb Hct MCV MCH MCHC RDW Plt Count MPV Immature Gran % (Auto) Neut % (Auto) Lymph % (Auto) [place] % (Auto) Eos % (Auto) Baso % (Auto) Lymph # (Auto) [place] # (Auto) Eos # (Auto) Baso # (Auto) Abs Immat Gran (auto) Absolute Neuts (auto) Absolute Nucleated RBC Nucleated RBC % (auto) Smear Tech's Comments PT INR APTT 37.3 Sodium Potassium Chloride Carbon Dioxide Anion Gap BUN Creatinine Estim Creat Clear Calc Estimated GFR Fasting Glucose Lactic Acid Lactic Acid F/U @ 2Hr Lactic Acid F/U @ 4Hr 1.2 Calcium Total Bilirubin AST ALT Alkaline Phosphatase Total Protein Albumin Urine Color Urine Appearance Urine pH Ur Specific [place] Urine Protein Urine Glucose (UA) Urine Ketones Urine Blood Urine Nitrite Ur Leukocyte Esterase Urine RBC Urine WBC Ur Squamous Epith Cells Urine Bacteria Progress Note: A&P Assessment and plan (1) Sepsis associated hypotension: Status: Acute (2) Biliary calculus with obstruction without cholecystitis: Status: Acute (3) Acute alteration in mental status: Status: Acute (4) Gallbladder sludge: Status: Acute (5) Abnormal LFTs: Status: Acute (6) Pneumonia: Status: Acute (7) Acute calculous cholecystitis: Status: Acute (8) Disruptive mood dysregulation disorder: Status: Acute (9) GERD (gastroesophageal reflux disease): Status: Acute (10) Traumatic brain injury: Status: Acute (11) Delusional disorder: Status: Acute (12) Obsessive compulsive disorder: Status: Acute (13) Aphasia: Status: Acute Plan Now she status post cholecystostomy and hemodynamics are restored between fluids and pressors and antibiotics hopefully the syndrome old defervesce including resolution of liver function tests and if that is the case then a final definitive cholecystectomy Quality Stroke Does the patient have a stroke diagnosis?: No VTE Prior VTE?: No VTE Risk Level:: Medical - moderate - high VTE Device Contraindication: Treatment Not Indicated VTE Drug Contraindication: N/A - Med Ordered
--- NOTE | 2022-01-07 14:12 | HE.PHANOTE ---
Tried to enter in the patients ANC value into the [facility] program but realized the patient wasn't registered. I contacted Dr. Hicks who is her outpatient provider at [facility]. He told me to contact the pharmacy at [phone] since they report to [facility]. Jazmin from the pharmacy answered and stated that the patient had not been registered even though she has been getting the medication since 11/05/21. She states that the patient had several dose increases during the titration period so she never got registered. Retail pharmacies cannot dispense the medication without approval regardless of dosage changes. I will follow up with current providers to see if we can get her registered if the therapy is continued while in house.
--- NOTE | 2022-01-07 15:23 | PM.EVENT ---
Event Note Date of Service: 01/07/22 Event Note: Cholecystostomy tube placed by IR bedside Output bilious, not purulent, not consistent with hydrops Follow-up cultures Abdomen remained soft and benign Seems to be much more hemodynamically stable Currently on low dose of pressors Will follow
[2022-01-07] MEDS: cloZAPine 25 MG TABLET 12.5 MG PO (20:10)
[2022-01-07 20:17] LABS: MANUAL DIFF FLAG NO
[2022-01-07 20:22] LABS: Basophils Absolute Auto 0.1 X10*3/uL (0.0-0.2); Basophils Percent Auto 0.3 % (0-2); Eosinophils Absolute Auto 1.2 X10*3/uL (0.0-0.4); Eosinophils Percent Auto 7.6 % (0-4); Hematocrit 38.9 % (37.0-47.0); Hemoglobin 12.4 g/dl (12.0-16.0); Imm Gran Abs Auto 0.06 X10*3/uL (0.00-0.03); Imm Gran Pct Auto 0.4 % (0.0-0.4); Lymphocytes Absolute Auto 1.3 X10*3/uL (1.2-4.9); Mean Corpuscular HGB Conc 31.9 g/dl (31.0-35.0); Mean Corpuscular Hemoglobin 28.9 pg (27.0-33.0); Mean Corpuscular Volume 90.7 fL (80.0-98.0); Mean Platelet Volume 9.2 fL (9.4-12.3); Monocytes Absolute Auto 0.8 X10*3/uL (0.1-1.2); Monocytes Percent Auto 4.8 % (2-11); Neutrophils Absolute Auto 12.4 x10*3/uL (2.0-8.3); Neutrophils Percent Auto 78.9 % (45-73); Platelet Count 400 X10*3/uL (160-400); Red Blood Count 4.29 X10*6/uL (4.20-5.50); Red Cell Distribution Width 14.9 % (11.0-16.0); White Blood Count 15.7 X10*3/uL (4.8-10.8)
[2022-01-07 20:43] LABS: Alanine Aminotransferase 341 U/L (0-31); Alkaline Phosphatase 359 U/L (39-117); Aspartate Amino Transferase 302 U/L (5-31); Bilirubin Direct 0.9 mg/dL (0.0-0.5); Bilirubin Total 1.3 mg/dL (0.0-1.0); Total Protein 5.6 g/dL (6.5-8.0)
[2022-01-08] VITALS (30 sets, daily range): BP systolic 95–136; BP diastolic 36–93; PULSE 69–88; RESP 13–22; TEMP 36.7–37.2; O2SAT 91–97; BMI 28.3
[2022-01-08] MEDS: 0.9 % Sodium Chloride Flush 3 ML SYRINGE IVFLUSH (00:47)
[2022-01-08] MEDS: Piperacillin Sodium/Tazobactam 4.5 GM in 0.9 % Sodium Chloride 100 ML IV ×4 (03:32→19:40)
[2022-01-08 05:43] LABS: MANUAL DIFF FLAG NO
[2022-01-08 05:46] LABS: Basophils Percent Auto 0.1 % (0-2); Hematocrit 27.2 % (37.0-47.0); Hemoglobin 8.8 g/dl (12.0-16.0); Imm Gran Abs Auto 0.06 X10*3/uL (0.00-0.03); Imm Gran Pct Auto 0.6 % (0.0-0.4); Lymphocytes Percent Auto 10.4 % (20-40); Mean Corpuscular HGB Conc 32.4 g/dl (31.0-35.0); Mean Corpuscular Hemoglobin 29.5 pg (27.0-33.0); Mean Corpuscular Volume 91.3 fL (80.0-98.0); Mean Platelet Volume 9.8 fL (9.4-12.3); Monocytes Absolute Auto 1.4 X10*3/uL (0.1-1.2); Monocytes Percent Auto 14.4 % (2-11); Neutrophils Absolute Auto 7.2 x10*3/uL (2.0-8.3); Neutrophils Percent Auto 74.5 % (45-73); Platelet Count 259 X10*3/uL (160-400); Red Blood Count 2.98 X10*6/uL (4.20-5.50); White Blood Count 9.7 X10*3/uL (4.8-10.8)
[2022-01-08 06:10] LABS: Alanine Aminotransferase 298 U/L (0-31); Albumin Level 2.9 g/dL (3.5-5.0); Alkaline Phosphatase 330 U/L (39-117); Anion Gap 12 (12-20); Aspartate Amino Transferase 231 U/L (5-31); Bilirubin Total 1.3 mg/dL (0.0-1.0); Blood Urea Nitrogen 8 mg/dL (9-16); Calcium 8.3 mg/dL (8.4-10.2); Carbon Dioxide 23 mmol/L (22-29); Chloride 111 mmol/L (96-108); Creatinine Clr Calc Pharmacy 78.5; Estimated Glomerular Filt Rate > 60; Glucose Random 243 mg/dL (60-115); Magnesium 2.1 mg/dL (1.6-2.6); Potassium 3.2 mmol/L (3.3-5.1); Sodium 143 mmol/L (135-145); Total Protein 5.3 g/dL (6.5-8.0)
[2022-01-08 06:25] LABS: Phosphorus 1.9 mg/dL (2.7-4.5)
[2022-01-08 06:40] LABS: Lactate Dehydrogenase 321 U/L (122-220)
[2022-01-08] MEDS: Potassium Chloride ER 20 MEQ TAB.ER.PRT PO (06:53)
--- NOTE | 2022-01-08 08:12 | P.PNCC_ITS ---
Subjective Subjective Date of Service: 01/08/22 Interval History: 62-year-old female from [facility] status post traumatic brain injury with the cholecystitis that she probably has had for 2 weeks and treated with antibiotics only despite what appears to be an obstructed cystic duct and a non visualizing gallbladder therefore on HIDA scan with elevated transaminases and alkaline phosphatase came in with a greater degree of leukocytosis fever marked hypotension and had a cholecystostomy tube placed yesterday and hemodynamics are resolving fevers resolving white count is resolving LFTs are resolving therefore 5th face to potentially next week would be cholecystectomy Critical Care Time (minutes): 45 Physical Exam Vital Signs: Vital Signs: Last Vital Signs Temp 98.8 F 01/08/22 08:00 Pulse 78 01/08/22 08:00 Resp 18 01/08/22 08:00 BP 136/54 L 01/08/22 08:00 Pulse Ox 94 01/08/22 08:00 Oxygen Flow Rate 7 01/07/22 17:41 BMI result Body Mass Index 28.3 Awake and more alert blood pressure is 130 still on Levophed in the process of being weaned with central venous pressure of 7 so she appears euvolemic Bedside echo with normal LV function and good bilateral carotid upstrokes Lungs are clear with no adventitious sounds Abdomen benign with no organomegaly Objective Data Labs CBC & Chem 7: 01/08/22 05:38 01/08/22 05:20 Labs: Laboratory Results - last 24 hr 01/07/22 01/07/22 01/08/22 20:05 20:05 05:20 WBC 15.7 H RBC 4.29 Hgb 12.4 Hct 38.9 MCV 90.7 MCH 28.9 MCHC 31.9 RDW 14.9 Plt Count 400 MPV 9.2 L Immature Gran % (Auto) 0.4 Neut % (Auto) 78.9 H Lymph % (Auto) 8.0 L [place] % (Auto) 4.8 Eos % (Auto) 7.6 H Baso % (Auto) 0.3 Lymph # (Auto) 1.3 [place] # (Auto) 0.8 Eos # (Auto) 1.2 H Baso # (Auto) 0.1 Abs Immat Gran (auto) 0.06 H Absolute Neuts (auto) 12.4 H Absolute Nucleated RBC 0.000 Nucleated RBC % (auto) 0.0 Sodium 143 Potassium 3.2 L Chloride 111 H Carbon Dioxide 23 Anion Gap 12 BUN 8 L Creatinine 0.76 Estim Creat Clear Calc 78.5 Estimated GFR > 60 Random Glucose 243 H Calcium 8.3 L Phosphorus 1.9 L Magnesium 2.1 Total Bilirubin 1.3 H 1.3 H Direct Bilirubin 0.9 H AST 302 H 231 H ALT 341 H 298 H Alkaline Phosphatase 359 H 330 H Lactate Dehydrogenase 321 H Total Protein 5.6 L 5.3 L Albumin 3.0 L 2.9 L MARILEE, Polyspecific Positive MARILEE Work-up 01/08/22 01/08/22 05:38 05:38 WBC 9.7 RBC 2.98 L D Hgb 8.8 L D Hct 27.2 L D MCV 91.3 MCH 29.5 MCHC 32.4 RDW 14.0 Plt Count 259 D MPV 9.8 Immature Gran % (Auto) 0.6 H Neut % (Auto) 74.5 H Lymph % (Auto) 10.4 L [place] % (Auto) 14.4 H Eos % (Auto) 0.0 Baso % (Auto) 0.1 Lymph # (Auto) 1.0 L [place] # (Auto) 1.4 H Eos # (Auto) 0.0 Baso # (Auto) 0.0 Abs Immat Gran (auto) 0.06 H Absolute Neuts (auto) 7.2 Absolute Nucleated RBC 0.000 Nucleated RBC % (auto) 0.0 Sodium Potassium Chloride Carbon Dioxide Anion Gap BUN Creatinine Estim Creat Clear Calc Estimated GFR Random Glucose Calcium Phosphorus Magnesium Total Bilirubin Direct Bilirubin AST ALT Alkaline Phosphatase Lactate Dehydrogenase Total Protein Albumin MARILEE, Polyspecific NEGATIVE Positive MARILEE Work-up Not Reportable Microbiology Microbiology Results: Microbiology 01/06/22 21:55 Blood - Venous Blood Culture - Preliminary No growth after 24 hours. 01/06/22 21:59 Blood - Venous Blood Culture - Preliminary No growth after 24 hours. 01/07/22 11:45 Gallbladder Gram Stain - Final 01/06/22 11:25 Blood - Venous Blood Culture - Preliminary No growth after 24 hours. 01/06/22 11:24 Blood - Venous Blood Culture - Preliminary No growth after 24 hours. Progress Note: A&P Assessment and plan (1) Hypokalemia: Status: Acute (2) Sepsis associated hypotension: Status: Acute (3) Biliary calculus with obstruction without cholecystitis: Status: Acute (4) Acute alteration in mental status: Status: Acute (5) Gallbladder sludge: Status: Acute (6) GERD (gastroesophageal reflux disease): Status: Acute (7) Traumatic brain injury: Status: Acute (8) Disruptive mood dysregulation disorder: Status: Acute (9) Gallstones: Status: Acute (10) Acute calculous cholecystitis: Status: Acute (11) Pneumonia: Status: Acute (12) Abnormal LFTs: Status: Acute (13) Dementia: Status: Acute (14) Delusional disorder: Status: Acute (15) Obsessive compulsive disorder: Status: Acute (16) Aphasia: Status: Acute (17) Encounter for annual routine gynecological examination: Status: Acute Plan 62-year-old female with cholecystostomy tube and resolving signs and symptoms of sepsis/acute cholecystitis and at this point we allow her to continue to drain and surgery is consulted and phase 2 down the line is cholecystectomy Quality Stroke Does the patient have a stroke diagnosis?: No VTE Prior VTE?: No VTE Risk Level:: Medical - moderate - high VTE Device Contraindication: Treatment Not Indicated VTE Drug Contraindication: N/A - Med Ordered
[2022-01-08] MEDS: Famotidine 20 MG TABLET 40 MG PO (08:30)
--- NOTE | 2022-01-08 09:12 | MHC.CM.PN ---
Female 62 DX AMS s/p T tube insertion 01/07/22. DP return to [facility] via BLS.
[2022-01-08] MEDS: ondansetron HCL 4 MG/2 ML VIAL IVPUSH ×2 (12:16→20:23)
--- NOTE | 2022-01-08 12:24 | PC.NURSE ---
Pt A&Ox2, cognition/alertness has significantly improved since yesterday, LFTs, improving, WBC count improving, afebrile, now able to titrate Levo down, current rate 0.2mcg/kg/min utilizing EMAR weight 102.3kg. Pt is eating regular diet, did get post prandial nausea s/p 1hr, MD notified, 4mg IVP ondasetron given with positive therapeutic effect. Pt sitting high fowlers, bed locked and in lowest position, call marie in reach, will continue to monitor.
--- NOTE | 2022-01-08 15:01 | P.PNGS_ITS ---
Subjective Subjective Date of Service: 01/08/22 Interval history: No events overnight Seems to have been more hemodynamically stable Patient awake and answers simple questions but does not seem to be a good historian Physical Exam Vital Signs: Vital Signs: Last Vital Signs Temp 98.3 F 01/08/22 12:00 Pulse 77 01/08/22 14:00 Resp 21 H 01/08/22 14:00 BP 112/52 L 01/08/22 15:00 Pulse Ox 97 01/08/22 14:00 Oxygen Flow Rate 7 01/07/22 17:41 BMI result Body Mass Index 28.3 Const: General: comfortable and no acute distress Resp: Effort & Inspection: normal respiratory effort Cardio: Rate: regular rate GI: Other: Cholecystostomy tube drain in place, output thin, bilious, no pus Palpation (GI): Soft to palpation, not firm and no guarding Objective Data Active Medications Acetaminophen (Acetaminophen 325 Mg Tablet) 650 mg PO Q6H PRN PRN Reason: Pain, Mild (Pain Scale 1-3) Calcium Carbonate (Calcium Carbonate 750 Mg Tab.Chew) 750 mg PO Q8H PRN PRN Reason: Heartburn Clozapine (Clozapine 25 Mg Tablet) 25 mg PO BEDTIME PRIYANKA Stop: 01/08/22 21:01 Clozapine (Clozapine 25 Mg Tablet) 50 mg PO BEDTIME PRIYANKA Stop: 01/09/22 21:01 Clozapine (Clozapine 25 Mg Tablet) 75 mg PO BEDTIME PRIYANKA Stop: 01/10/22 21:01 Clozapine (Clozapine 100 Mg Tablet) 100 mg PO BEDTIME [facility] Famotidine (Famotidine 20 Mg Tablet) 40 mg PO DAILY [facility] Last Admin: 01/08/22 08:30 Dose: 40 mg Documented by: KOLTON Norepinephrine Bitartrate (Levophed) 8 mg in 250 mls @ 0 mls/hr IVCONT .Q0M [facility]; Protocol Last Titration: 01/08/22 15:00 Dose: 0.14 mcg/kg/min, 27.39 mls/hr Documented by: KOLTON Piperacillin Sod/Tazobactam (Sod 4.5 gm/ Sodium Chloride) 100 mls @ 200 mls/hr IV Q6H [facility] Last Infusion: 01/08/22 14:17 Dose: 0 mls/hr Documented by: KOLTON Lamotrigine (Lamotrigine 100 Mg Tablet) 150 mg PO BID [facility] Last Admin: 01/07/22 08:41 Dose: Not Given Documented by: KOLTON Non-Admin Reason: poor cognition/swallow Ondansetron HCl (Ondansetron Hcl 4 Mg/2 Ml Vial) 4 mg IVPUSH Q4H PRN PRN Reason: Nausea Last Admin: 01/08/22 12:16 Dose: 4 mg Documented by: KOLTON Oxycodone HCl (Oxycodone Hcl Immed Release 5 Mg Tablet) 5 mg PO Q4H PRN PRN Reason: Pain, Severe (Pain Scale 7-10) Last Admin: 01/06/22 16:35 Dose: 5 mg Documented by: RADHA Sodium Chloride (0.9 % Sodium Chloride Flush 3 Ml Syringe) 3 ml IVFLUSH QSHIFT [facility] Last Admin: 01/08/22 08:29 Dose: Not Given Documented by: KOLTON Non-Admin Reason: IV Running Sodium Chloride (Sodium Chloride 0.65 % Nasal 44 Ml Sprbtl) 1 spray NOSTRIL-B Q8H PRN PRN Reason: Nasal Congestion Labs CBC & Chem 7: 01/08/22 05:38 01/08/22 05:20 Labs: Laboratory Results - last 24 hr 01/07/22 01/07/22 01/08/22 20:05 20:05 05:20 MCV 90.7 MCH 28.9 MCHC 31.9 RDW 14.9 Plt Count 400 MPV 9.2 L Immature Gran % (Auto) 0.4 Neut % (Auto) 78.9 H Lymph % (Auto) 8.0 L [place] % (Auto) 4.8 Eos % (Auto) 7.6 H Baso % (Auto) 0.3 Lymph # (Auto) 1.3 [place] # (Auto) 0.8 Eos # (Auto) 1.2 H Baso # (Auto) 0.1 Abs Immat Gran (auto) 0.06 H Absolute Neuts (auto) 12.4 H Absolute Nucleated RBC 0.000 Nucleated RBC % (auto) 0.0 Anion Gap 12 Estim Creat Clear Calc 78.5 Estimated GFR > 60 Random Glucose 243 H Calcium 8.3 L Phosphorus 1.9 L Magnesium 2.1 Total Bilirubin 1.3 H 1.3 H Direct Bilirubin 0.9 H AST 302 H 231 H ALT 341 H 298 H Alkaline Phosphatase 359 H 330 H Lactate Dehydrogenase 321 H Total Protein 5.6 L 5.3 L Albumin 3.0 L 2.9 L MARILEE, Polyspecific Positive MARILEE Work-up 01/08/22 01/08/22 05:38 05:38 MCV 91.3 MCH 29.5 MCHC 32.4 RDW 14.0 Plt Count 259 D MPV 9.8 Immature Gran % (Auto) 0.6 H Neut % (Auto) 74.5 H Lymph % (Auto) 10.4 L [place] % (Auto) 14.4 H Eos % (Auto) 0.0 Baso % (Auto) 0.1 Lymph # (Auto) 1.0 L [place] # (Auto) 1.4 H Eos # (Auto) 0.0 Baso # (Auto) 0.0 Abs Immat Gran (auto) 0.06 H Absolute Neuts (auto) 7.2 Absolute Nucleated RBC 0.000 Nucleated RBC % (auto) 0.0 Anion Gap Estim Creat Clear Calc Estimated GFR Random Glucose Calcium Phosphorus Magnesium Total Bilirubin Direct Bilirubin AST ALT Alkaline Phosphatase Lactate Dehydrogenase Total Protein Albumin MARILEE, Polyspecific NEGATIVE Positive MARILEE Work-up Not Reportable Microbiology Microbiology Results: Microbiology 01/07/22 11:45 Gram Stain - Final Gallbladder Routine Culture - Preliminary No growth to date. Anaerobic Culture - Preliminary Culture in progress. 01/06/22 11:25 Blood Culture - Preliminary Blood - Venous No growth after 48 hours. 01/06/22 11:24 Blood Culture - Preliminary Blood - Venous No growth after 48 hours. 01/06/22 21:55 Blood Culture - Preliminary Blood - Venous No growth after 24 hours. 01/06/22 21:59 Blood Culture - Preliminary Blood - Venous No growth after 24 hours. 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 Fall Risk Details Current Medications: Current Medications Acetaminophen (Acetaminophen 325 Mg Tablet) 650 mg PO Q6H PRN PRN Reason: Pain, Mild (Pain Scale 1-3) Calcium Carbonate (Calcium Carbonate 750 Mg Tab.Chew) 750 mg PO Q8H PRN PRN Reason: Heartburn Clozapine (Clozapine 25 Mg Tablet) 25 mg PO BEDTIME [facility] Stop: 01/08/22 21:01 Clozapine (Clozapine 25 Mg Tablet) 50 mg PO BEDTIME [facility] Stop: 01/09/22 21:01 Clozapine (Clozapine 25 Mg Tablet) 75 mg PO BEDTIME PRIYANKA Stop: 01/10/22 21:01 Clozapine (Clozapine 100 Mg Tablet) 100 mg PO BEDTIME PRIYANKA Famotidine (Famotidine 20 Mg Tablet) 40 mg PO DAILY [facility] Last Admin: 01/08/22 08:30 Dose: 40 mg Documented by: Norepinephrine Bitartrate (Levophed) 8 mg in 250 mls @ 0 mls/hr IVCONT .Q0M [facility]; Protocol Last Titration: 01/08/22 15:00 Dose: 0.14 mcg/kg/min, 27.39 mls/hr Documented by: Piperacillin Sod/Tazobactam (Sod 4.5 gm/ Sodium Chloride) 100 mls @ 200 mls/hr IV Q6H [facility] Last Infusion: 01/08/22 14:17 Dose: Infused Documented by: Lamotrigine (Lamotrigine 100 Mg Tablet) 150 mg PO BID [facility] Last Admin: 01/07/22 08:41 Dose: Not Given Documented by: Ondansetron HCl (Ondansetron Hcl 4 Mg/2 Ml Vial) 4 mg IVPUSH Q4H PRN PRN Reason: Nausea Last Admin: 01/08/22 12:16 Dose: 4 mg Documented by: Oxycodone HCl (Oxycodone Hcl Immed Release 5 Mg Tablet) 5 mg PO Q4H PRN PRN Reason: Pain, Severe (Pain Scale 7-10) Last Admin: 01/06/22 16:35 Dose: 5 mg Documented by: Sodium Chloride (0.9 % Sodium Chloride Flush 3 Ml Syringe) 3 ml IVFLUSH QSHIFT [facility] Last Admin: 01/08/22 08:30 Dose: Not Given Documented by: Sodium Chloride (Sodium Chloride 0.65 % Nasal 44 Ml Sprbtl) 1 spray NOSTRIL-B Q8H PRN PRN Reason: Nasal Congestion Time Spent With Patient Time: Total time spent is greater than 50% in coordination of care (as documented) at patient's floor/unit and/or counseling patient: Quality Stroke Does the patient have a stroke diagnosis?: No VTE Prior VTE?: No VTE Risk Level:: Medical - moderate - high VTE Device Contraindication: Treatment Not Indicated VTE Drug Contraindication: N/A - Med Ordered
[2022-01-08 19:01] LABS: OBS Int Ctl Valid YES; OBS1 NEGATIVE (NEGATIVE)
[2022-01-08] MEDS: cloZAPine 25 MG TABLET PO (20:09)
[2022-01-09] VITALS (27 sets, daily range): BP systolic 77–130; BP diastolic 39–82; PULSE 59–96; RESP 12–26; TEMP 36.2–36.4; O2SAT 91–98; BMI 27.3
[2022-01-09] MEDS: ondansetron HCL 4 MG/2 ML VIAL IVPUSH ×2 (00:50→19:25)
[2022-01-09] MEDS: Piperacillin Sodium/Tazobactam 4.5 GM in 0.9 % Sodium Chloride 100 ML IV ×4 (01:20→19:30)
[2022-01-09] MEDS: Haloperidol Lactate 5 MG/ML VIAL 2 MG IVPUSH (02:53)
[2022-01-09 05:35] LABS: MANUAL DIFF FLAG NO
[2022-01-09 05:38] LABS: Basophils Absolute Auto 0.1 X10*3/uL (0.0-0.2); Basophils Percent Auto 0.5 % (0-2); Eosinophils Percent Auto 14.7 % (0-4); Hematocrit 37.9 % (37.0-47.0); Hemoglobin 12.1 g/dl (12.0-16.0); Imm Gran Abs Auto 0.05 X10*3/uL (0.00-0.03); Imm Gran Pct Auto 0.4 % (0.0-0.4); Lymphocytes Absolute Auto 1.1 X10*3/uL (1.2-4.9); Lymphocytes Percent Auto 8.5 % (20-40); Mean Corpuscular HGB Conc 31.9 g/dl (31.0-35.0); Mean Corpuscular Hemoglobin 28.6 pg (27.0-33.0); Mean Corpuscular Volume 89.6 fL (80.0-98.0); Mean Platelet Volume 9.2 fL (9.4-12.3); Monocytes Absolute Auto 0.7 X10*3/uL (0.1-1.2); Monocytes Percent Auto 5.4 % (2-11); Neutrophils Absolute Auto 9.3 x10*3/uL (2.0-8.3); Neutrophils Percent Auto 70.5 % (45-73); Platelet Count 313 X10*3/uL (160-400); Red Blood Count 4.23 X10*6/uL (4.20-5.50); White Blood Count 13.2 X10*3/uL (4.8-10.8)
[2022-01-09 05:57] LABS: Alanine Aminotransferase 263 U/L (0-31); Albumin Level 2.9 g/dL (3.5-5.0); Alkaline Phosphatase 316 U/L (39-117); Anion Gap 11 (12-20); Aspartate Amino Transferase 209 U/L (5-31); Bilirubin Total 1.6 mg/dL (0.0-1.0); Blood Urea Nitrogen 4 mg/dL (9-16); Calcium 8.5 mg/dL (8.4-10.2); Carbon Dioxide 27 mmol/L (22-29); Chloride 112 mmol/L (96-108); Creatinine Clr Calc Pharmacy 90.7; Estimated Glomerular Filt Rate > 60; Glucose Random 169 mg/dL (60-115); Magnesium 2.3 mg/dL (1.6-2.6); Phosphorus 2.2 mg/dL (2.7-4.5); Potassium 3.5 mmol/L (3.3-5.1); Sodium 146 mmol/L (135-145); Total Protein 5.2 g/dL (6.5-8.0)
--- NOTE | 2022-01-09 06:17 | PC.NURSE ---
At approximately 0200 staff was alerted by the bed alarm that patient was getting out princess bed. Staff arrived in room to find patient standing having a large episode of diarrhea. Pt was also agitated and not understanding of her situation and pulling on lines. Staff was able to get patient to sit on bed. Difficult to redirect. Once staff was able to get patient in bed and lay down, pt was cleaned bed was changed and pt was stil mildly agitated. Pt was placed back on NC and PA ordered haldol. Haldol had good effect with patient remaining calm and was able to sleep through the rest of the night comfortably. Pt has also had BP's that was soft when levophed was backed down or off for blood draws. BP would drop into 70s and 80s when levophed was titrated down. PT remains on levo at 0.13 currently and is maintaining SBP in the low 100s.
[2022-01-09] MEDS: KCl 20 mEq in 5% Dex/0.45% Sod 20 MEQ/1,000 ML IV.SOLN 80 MEQ IVCONT ×2 (07:53→19:33)
--- NOTE | 2022-01-09 11:22 | P.PNCC_ITS ---
Subjective Subjective Date of Service: 01/09/22 Interval History: 62-year-old status post cholecystostomy tube for what appeared to be 2 weeks of cholecystitis and antibiotic therapy for it as well but did not defervesce until cholecystostomy tube was placed and LFTs are gradually resolving she is afebrile Levophed which she still depends on to a small degree is being weaned so septic hemodynamics all repairing Critical Care Time (minutes): 45 Physical Exam Vital Signs: Vital Signs: Last Vital Signs Temp 97.5 F 01/09/22 08:00 Pulse 63 01/09/22 11:00 Resp 13 01/09/22 11:00 BP 119/49 L 01/09/22 11:00 Pulse Ox 94 01/09/22 11:00 Oxygen Flow Rate 7 01/07/22 17:41 BMI result Body Mass Index 27.3 Awake but she has periodic agitation from her schizoaffective issues requiring p.r.n. Haldol Cardiovascular class 1 with good bilateral carotid upstrokes and no neck vein distension Abdomen benign no again a megaly Skin intact no edema Objective Data Labs CBC & Chem 7: 01/09/22 05:25 01/09/22 05:25 Labs: Laboratory Results - last 24 hr 01/08/22 01/09/22 01/09/22 18:47 05:25 05:25 WBC 13.2 H RBC 4.23 D Hgb 12.1 D Hct 37.9 D MCV 89.6 MCH 28.6 MCHC 31.9 RDW 15.0 Plt Count 313 MPV 9.2 L Immature Gran % (Auto) 0.4 Neut % (Auto) 70.5 Lymph % (Auto) 8.5 L [place] % (Auto) 5.4 Eos % (Auto) 14.7 H Baso % (Auto) 0.5 Lymph # (Auto) 1.1 L [place] # (Auto) 0.7 Eos # (Auto) 2.0 H Baso # (Auto) 0.1 Abs Immat Gran (auto) 0.05 H Absolute Neuts (auto) 9.3 H Absolute Nucleated RBC 0.000 Nucleated RBC % (auto) 0.0 Sodium 146 H Potassium 3.5 Chloride 112 H Carbon Dioxide 27 Anion Gap 11 L BUN 4 L Creatinine 0.67 Estim Creat Clear Calc 90.7 Estimated GFR > 60 Random Glucose 169 H Calcium 8.5 Phosphorus 2.2 L Magnesium 2.3 Total Bilirubin 1.6 H AST 209 H ALT 263 H Alkaline Phosphatase 316 H Total Protein 5.2 L Albumin 2.9 L Stool Occult Blood NEGATIVE Microbiology Microbiology Results: Microbiology 01/07/22 11:45 Gallbladder Gram Stain - Final 01/07/22 11:45 Gallbladder Routine Culture - Final No growth after 2 days 01/07/22 11:45 Gallbladder Anaerobic Culture - Preliminary No growth to date. 01/06/22 21:55 Blood - Venous Blood Culture - Preliminary No growth after 48 hours. 01/06/22 21:59 Blood - Venous Blood Culture - Preliminary No growth after 48 hours. 01/06/22 11:25 Blood - Venous Blood Culture - Preliminary No growth after 48 hours. 01/06/22 11:24 Blood - Venous Blood Culture - Preliminary No growth after 48 hours. Progress Note: A&P Assessment and plan (1) Hypokalemia: Status: Acute (2) Sepsis associated hypotension: Status: Acute (3) Biliary calculus with obstruction without cholecystitis: Status: Acute (4) Acute alteration in mental status: Status: Acute (5) Gallbladder sludge: Status: Acute (6) Abnormal LFTs: Status: Acute (7) Pneumonia: Status: Acute (8) Acute calculous cholecystitis: Status: Acute (9) Gallstones: Status: Acute (10) Disruptive mood dysregulation disorder: Status: Acute (11) GERD (gastroesophageal reflux disease): Status: Acute (12) Myopia: Status: Acute (13) Traumatic brain injury: Status: Acute (14) Dementia: Status: Acute (15) Delusional disorder: Status: Acute (16) Obsessive compulsive disorder: Status: Acute (17) Aphasia: Status: Acute (18) Encounter for annual routine gynecological examination: Status: Acute Plan Continued antibiotics and support with Levophed as needed with current pressure 119/51 and a mean of 75 and once off Levophed could be transfer to the floor Quality Stroke Does the patient have a stroke diagnosis?: No VTE Prior VTE?: No VTE Risk Level:: Medical - moderate - high VTE Device Contraindication: Treatment Not Indicated VTE Drug Contraindication: N/A - Med Ordered
--- NOTE | 2022-01-09 14:49 | MHC.CM.PN ---
Pt continues on low pressor support in ICU but making progress overall. Plan is to wean off Levo and transfer to floor. Clinical updates sent to [facility] in anticipation of a return later next week. CM to follow
[2022-01-09] MEDS: 0.9 % Sodium Chloride Flush 3 ML SYRINGE IVFLUSH (14:54)
[2022-01-09] MEDS: cloZAPine 25 MG TABLET 50 MG PO (20:16)
[2022-01-09] MEDS: Acetaminophen 325 MG TABLET 650 MG PO (20:16)
[2022-01-10] VITALS (27 sets, daily range): BP systolic 78–126; BP diastolic 36–60; PULSE 71–106; RESP 11–27; TEMP 36.4–37.8; O2SAT 91–97
[2022-01-10] MEDS: Piperacillin Sodium/Tazobactam 4.5 GM in 0.9 % Sodium Chloride 100 ML IV ×2 (02:10→08:04)
[2022-01-10] MEDS: ondansetron HCL 4 MG/2 ML VIAL IVPUSH (03:09)
[2022-01-10] MEDS: Haloperidol Lactate 5 MG/ML VIAL 2 MG IVPUSH (04:32)
[2022-01-10 07:25] LABS: MANUAL DIFF FLAG NO
[2022-01-10 07:31] LABS: Basophils Absolute Auto 0.1 X10*3/uL (0.0-0.2); Basophils Percent Auto 0.5 % (0-2); Eosinophils Absolute Auto 1.1 X10*3/uL (0.0-0.4); Eosinophils Percent Auto 7.4 % (0-4); Hematocrit 36.8 % (37.0-47.0); Hemoglobin 11.9 g/dl (12.0-16.0); Imm Gran Abs Auto 0.08 X10*3/uL (0.00-0.03); Imm Gran Pct Auto 0.6 % (0.0-0.4); Lymphocytes Absolute Auto 1.1 X10*3/uL (1.2-4.9); Lymphocytes Percent Auto 7.8 % (20-40); Mean Corpuscular HGB Conc 32.3 g/dl (31.0-35.0); Mean Corpuscular Hemoglobin 29.2 pg (27.0-33.0); Mean Corpuscular Volume 90.2 fL (80.0-98.0); Mean Platelet Volume 9.4 fL (9.4-12.3); Monocytes Absolute Auto 0.5 X10*3/uL (0.1-1.2); Monocytes Percent Auto 3.6 % (2-11); Neutrophils Absolute Auto 11.4 x10*3/uL (2.0-8.3); Neutrophils Percent Auto 80.1 % (45-73); Platelet Count 310 X10*3/uL (160-400); Red Blood Count 4.08 X10*6/uL (4.20-5.50); Red Cell Distribution Width 14.9 % (11.0-16.0); White Blood Count 14.2 X10*3/uL (4.8-10.8)
[2022-01-10] MEDS: KCl 20 mEq in 5% Dex/0.45% Sod 20 MEQ/1,000 ML IV.SOLN 80 MEQ IVCONT ×2 (07:46→19:45)
[2022-01-10] MEDS: Famotidine 20 MG TABLET 40 MG PO (08:00)
[2022-01-10] MEDS: 0.9 % Sodium Chloride Flush 3 ML SYRINGE IVFLUSH ×2 (08:03→15:13)
[2022-01-10 08:47] LABS: Alanine Aminotransferase 222 U/L (0-31); Albumin Level 2.8 g/dL (3.5-5.0); Alkaline Phosphatase 320 U/L (39-117); Anion Gap 11 (12-20); Aspartate Amino Transferase 175 U/L (5-31); Bilirubin Total 1.4 mg/dL (0.0-1.0); Blood Urea Nitrogen 4 mg/dL (9-16); Calcium 8.5 mg/dL (8.4-10.2); Carbon Dioxide 27 mmol/L (22-29); Chloride 108 mmol/L (96-108); Creatinine Clr Calc Pharmacy 85.3; Estimated Glomerular Filt Rate > 60; Glucose Random 165 mg/dL (60-115); Potassium 3.7 mmol/L (3.3-5.1); Sodium 142 mmol/L (135-145); Total Protein 5.1 g/dL (6.5-8.0)
--- NOTE | 2022-01-10 13:09 | PM.CCPN ---
Subjective Subjective Date of Service: 01/10/22 Interval History: 62-year-old female who for the last 2 weeks has had clinical acute cholecystitis but simply treated with antibiotics and then she presented in septic shock and persistent transaminitis and alkaline phosphatase elevation and marked increase in white count and left shift long story short underwent cholecystostomy placement she defervesced still on a minimal requirement of Levophed despite of volume repletion and maintenance of Zosyn antibiotic therapy and continue drainage but LFTs are resolving the whole clinical situation obviously is now dissipating and she is in line before she is discharged to have a OR cholecystectomy Critical Care Time (minutes): 45 Physical Exam Vital Signs: Vital Signs: Last Vital Signs Temp 99.3 F 01/10/22 12:00 Pulse 79 01/10/22 12:00 Resp 14 01/10/22 12:00 BP 114/48 L 01/10/22 12:00 Pulse Ox 96 01/10/22 12:00 Oxygen Flow Rate 7 01/07/22 17:41 BMI result Body Mass Index 27.3 she is awake and she is eating and tole rating normal cardiovascular status by bedside echo lungs clear abdomen is soft good bowel sounds no organomegaly skin intact Objective Data Labs CBC & Chem 7: 01/10/22 07:23 01/10/22 07:23 Labs: Laboratory Results - last 24 hr 01/10/22 01/10/22 07:23 07:23 WBC 14.2 H RBC 4.08 L Hgb 11.9 L Hct 36.8 L MCV 90.2 MCH 29.2 MCHC 32.3 RDW 14.9 Plt Count 310 MPV 9.4 Immature Gran % (Auto) 0.6 H Neut % (Auto) 80.1 H Lymph % (Auto) 7.8 L [place] % (Auto) 3.6 Eos % (Auto) 7.4 H Baso % (Auto) 0.5 Lymph # (Auto) 1.1 L [place] # (Auto) 0.5 Eos # (Auto) 1.1 H Baso # (Auto) 0.1 Abs Immat Gran (auto) 0.08 H Absolute Neuts (auto) 11.4 H Absolute Nucleated RBC 0.000 Nucleated RBC % (auto) 0.0 Sodium 142 Potassium 3.7 Chloride 108 Carbon Dioxide 27 Anion Gap 11 L BUN 4 L Creatinine 0.70 Estim Creat Clear Calc 85.3 Estimated GFR > 60 Random Glucose 165 H Calcium 8.5 Total Bilirubin 1.4 H AST 175 H ALT 222 H Alkaline Phosphatase 320 H Total Protein 5.1 L Albumin 2.8 L Microbiology Microbiology Results: Microbiology 01/07/22 11:45 Gallbladder Gram Stain - Final 01/07/22 11:45 Gallbladder Routine Culture - Final No growth after 2 days 01/07/22 11:45 Gallbladder Anaerobic Culture - Preliminary No growth to date. 01/06/22 21:55 Blood - Venous Blood Culture - Preliminary No growth after 48 hours. 01/06/22 21:59 Blood - Venous Blood Culture - Preliminary No growth after 48 hours. 01/06/22 11:25 Blood - Venous Blood Culture - Preliminary No growth after 48 hours. 01/06/22 11:24 Blood - Venous Blood Culture - Preliminary No growth after 48 hours. Progress Note: A&P Assessment and plan (1) Hypokalemia: Status: Acute (2) Sepsis associated hypotension: Status: Acute (3) Biliary calculus with obstruction without cholecystitis: Status: Acute (4) Acute alteration in mental status: Status: Acute (5) Gallbladder sludge: Status: Acute (6) Abnormal LFTs: Status: Acute (7) Pneumonia: Status: Acute (8) Acute calculous cholecystitis: Status: Acute (9) Gallstones: Status: Acute (10) Disruptive mood dysregulation disorder: Status: Acute (11) GERD (gastroesophageal reflux disease): Status: Acute (12) Myopia: Status: Acute (13) Traumatic brain injury: Status: Acute (14) Dementia: Status: Acute (15) Delusional disorder: Status: Acute (16) Obsessive compulsive disorder: Status: Acute (17) Aphasia: Status: Acute (18) Encounter for annual routine gynecological examination: Status: Acute Plan the plan is to try to wean the Levophed so she can go to a med surge floor and a plan for cholecystectomy and then discharge Quality Stroke Does the patient have a stroke diagnosis?: No VTE Prior VTE?: No VTE Risk Level:: Medical - moderate - high VTE Device Contraindication: Treatment Not Indicated VTE Drug Contraindication: N/A - Med Ordered
[2022-01-10] MEDS: cloZAPine 25 MG TABLET 75 MG PO (19:47)
[2022-01-10] MEDS: Albumin Human 25 % 100 ML IV ×2 (19:47→21:01)
[2022-01-10 20:06] LABS: Anion Gap 12 (12-20); Blood Urea Nitrogen 4 mg/dL (9-16); Calcium 8.1 mg/dL (8.4-10.2); Carbon Dioxide 23 mmol/L (22-29); Chloride 111 mmol/L (96-108); Creatinine Clr Calc Pharmacy 94.7; Estimated Glomerular Filt Rate > 60; Glucose Random 132 mg/dL (60-115); Magnesium 2.3 mg/dL (1.6-2.6); Phosphorus 2.2 mg/dL (2.7-4.5); Potassium 4.5 mmol/L (3.3-5.1); Sodium 141 mmol/L (135-145)
[2022-01-10] MEDS: Lactated Ringers 1,000 ML 80 ML IVCONT (21:11)
[2022-01-10] MEDS: Potassium Phosphate/NS 15 MMOL/250 ML PLAST..BAG 62.5 MMOL IV (21:28)
[2022-01-11] VITALS (16 sets, daily range): BP systolic 94–121; BP diastolic 42–55; PULSE 69–92; RESP 15–27; TEMP 36.6–37.5; O2SAT 89–97
[2022-01-11 05:23] LABS: MANUAL DIFF FLAG NO
[2022-01-11 05:24] LABS: Basophils Percent Auto 0.5 % (0-2); Eosinophils Percent Auto 11.4 % (0-4); Hematocrit 33.3 % (37.0-47.0); Hemoglobin 10.6 g/dl (12.0-16.0); Imm Gran Abs Auto 0.02 X10*3/uL (0.00-0.03); Imm Gran Pct Auto 0.2 % (0.0-0.4); Lymphocytes Absolute Auto 1.2 X10*3/uL (1.2-4.9); Lymphocytes Percent Auto 13.5 % (20-40); Mean Corpuscular HGB Conc 31.8 g/dl (31.0-35.0); Mean Corpuscular Hemoglobin 29.1 pg (27.0-33.0); Mean Corpuscular Volume 91.5 fL (80.0-98.0); Mean Platelet Volume 9.5 fL (9.4-12.3); Monocytes Absolute Auto 0.6 X10*3/uL (0.1-1.2); Monocytes Percent Auto 6.8 % (2-11); Neutrophils Percent Auto 67.6 % (45-73); Platelet Count 257 X10*3/uL (160-400); Red Blood Count 3.64 X10*6/uL (4.20-5.50); Red Cell Distribution Width 14.9 % (11.0-16.0); White Blood Count 8.8 X10*3/uL (4.8-10.8)
[2022-01-11 05:43] LABS: Alanine Aminotransferase 148 U/L (0-31); Albumin Level 3.2 g/dL (3.5-5.0); Alkaline Phosphatase 241 U/L (39-117); Anion Gap 11 (12-20); Aspartate Amino Transferase 130 U/L (5-31); Bilirubin Direct 1.2 mg/dL (0.0-0.5); Blood Urea Nitrogen 5 mg/dL (9-16); Calcium 8.8 mg/dL (8.4-10.2); Carbon Dioxide 26 mmol/L (22-29); Chloride 110 mmol/L (96-108); Creatinine Clr Calc Pharmacy 93.2; Estimated Glomerular Filt Rate > 60; Glucose Random 132 mg/dL (60-115); Magnesium 2.3 mg/dL (1.6-2.6); Phosphorus 2.7 mg/dL (2.7-4.5); Potassium 3.9 mmol/L (3.3-5.1); Sodium 143 mmol/L (135-145); Total Protein 5.1 g/dL (6.5-8.0)
[2022-01-11] MEDS: 0.9 % Sodium Chloride Flush 3 ML SYRINGE IVFLUSH ×3 (09:34→21:36)
[2022-01-11] MEDS: Albumin Human 25 % 100 ML IV ×3 (09:35→21:24)
[2022-01-11] MEDS: Famotidine 20 MG TABLET 40 MG PO (09:35)
[2022-01-11] MEDS: Lactated Ringers 1,000 ML 80 ML IVCONT ×2 (09:36→09:38)
--- NOTE | 2022-01-11 10:27 | P.PNCC_ITS ---
Subjective Subjective Date of Service: 01/11/22 Interval History: 62-year-old lady with underlying history of TBI, dementia, delusional disorder, resident of nursing home facility, with recent admission to [facility] on 12/22/2021 through 01/05/2022 for cholecystitis, evaluated by General surgery, and treated conservatively. Discharged on 01/05/2022, readmitted on 01/06/2022 with worsening cholecystitis, status post cholecystostomy on 01/07/2022. Hospital course significant for septic shock requiring initiation of other pressor support and transferred to the intensive care unit. Evaluated by General surgery and being planned for cholecystectomy. No events overnight. Titrated off pressors. Critical Care Time (minutes): 45 Physical Exam Vital Signs: Vital Signs: Last Vital Signs Temp 97.9 F 01/11/22 08:00 Pulse 88 01/11/22 10:00 Resp 17 01/11/22 10:00 BP 106/51 L 01/11/22 10:00 Pulse Ox 90 L 01/11/22 10:00 Oxygen Flow Rate 7 01/07/22 17:41 BMI result Body Mass Index 27.3 Const: General: no acute distress and lethargic ( Arousable) Orientation/consciousness: lethargic ( Arousable) Eyes: Sclerae: sclerae normal EOM: EOMs intact bilaterally Neck: Neck: Yes no lymphadenopathy, Yes trachea midline and Yes supple Resp: Effort & Inspection: normal respiratory effort and no respiratory distress Auscultation: clear to auscultation bilaterally Cardio: Rate: regular rate Rhythm: regular rhythm Heart sounds: no gallops, no murmurs and no rubs GI: Inspection: Yes other ( cholecystostomy) Palpation (GI): Soft to palpation and Other GI palpation findings present ( Nontender) Auscultation: normal bowel sounds Extrem: General: Yes no pedal edema, No clubbing and No cyanosis Objective Data Labs CBC & Chem 7: 01/11/22 05:17 01/11/22 05:17 Labs: Laboratory Results - last 24 hr 01/10/22 01/11/22 01/11/22 19:30 05:17 05:17 WBC 8.8 RBC 3.64 L Hgb 10.6 L Hct 33.3 L MCV 91.5 MCH 29.1 MCHC 31.8 RDW 14.9 Plt Count 257 MPV 9.5 Immature Gran % (Auto) 0.2 Neut % (Auto) 67.6 Lymph % (Auto) 13.5 L [place] % (Auto) 6.8 Eos % (Auto) 11.4 H Baso % (Auto) 0.5 Lymph # (Auto) 1.2 [place] # (Auto) 0.6 Eos # (Auto) 1.0 H Baso # (Auto) 0.0 Abs Immat Gran (auto) 0.02 Absolute Neuts (auto) 6.0 Absolute Nucleated RBC 0.000 Nucleated RBC % (auto) 0.0 Sodium 141 143 Potassium 4.5 D 3.9 Chloride 111 H 110 H Carbon Dioxide 23 26 Anion Gap 12 11 L BUN 4 L 5 L Creatinine 0.63 0.64 Estim Creat Clear Calc 94.7 93.2 Estimated GFR > 60 > 60 Random Glucose 132 H 132 H Calcium 8.1 L 8.8 D Phosphorus 2.2 L 2.7 Magnesium 2.3 2.3 Total Bilirubin 2.0 H Direct Bilirubin 1.2 H AST 130 H ALT 148 H Alkaline Phosphatase 241 H D Total Protein 5.1 L Albumin 3.2 L Microbiology Microbiology Results: Microbiology 01/07/22 11:45 Gallbladder Gram Stain - Final 01/07/22 11:45 Gallbladder Routine Culture - Final No growth after 2 days 01/07/22 11:45 Gallbladder Anaerobic Culture - Preliminary No growth to date. 01/06/22 21:55 Blood - Venous Blood Culture - Preliminary No growth after 48 hours. 01/06/22 21:59 Blood - Venous Blood Culture - Preliminary No growth after 48 hours. 01/06/22 11:25 Blood - Venous Blood Culture - Preliminary No growth after 48 hours. 01/06/22 11:24 Blood - Venous Blood Culture - Preliminary No growth after 48 hours. Progress Note: A&P Assessment and plan (1) Acute calculous cholecystitis: Status: Acute (2) Sepsis associated hypotension: Status: Acute (3) Traumatic brain injury: Status: Acute (4) Dementia: Status: Acute (5) Aphasia: Status: Acute (6) Obsessive compulsive disorder: Status: Acute (7) Disruptive mood dysregulation disorder: Status: Acute Plan Assessment: 62-year-old lady with underlying dementia/TBI, nursing home facility resident admitted with acute cholecystitis, further complicated by septic shock, now status post cholecystostomy Plan: Neuro: No acute issues. underlying history of TBI/dementia/aphasia. Cardiac: Septic shock, resolved, titrated off pressors. Pulmonary: No acute issues. Renal: No acute issues. Endo: No acute issues. GI: Acute cholecystitis now status post cholecystostomy. General surgery service care appreciated. Being planned for cholecystectomy. ID: Acute cholecystitis, continue with broad-spectrum antibiotic coverage. Heme/Onc: No acute issues. Psych: No acute issues. Miscellaneous: No acute issues. Prophylaxis: heparin Diet: regular Critical care time spent: 45 minutes Quality Stroke Does the patient have a stroke diagnosis?: No VTE Prior VTE?: No VTE Risk Level:: Medical - moderate - high VTE Device Contraindication: Treatment Not Indicated VTE Drug Contraindication: N/A - Med Ordered
[2022-01-11] MEDS: Heparin Sodium,Porcine 5,000 UNIT/ML VIAL 5000 UNIT SUBCUT ×2 (11:19→21:13)
--- NOTE | 2022-01-11 14:02 | PM.PNGS ---
Subjective Subjective Date of Service: 01/11/22 Interval history: Has been doing well To be transferred out of ICU Tolerating diet Physical Exam Vital Signs: Vital Signs: Last Vital Signs Temp 98.3 F 01/11/22 12:00 Pulse 87 01/11/22 13:00 Resp 27 H 01/11/22 13:00 BP 94/47 L 01/11/22 13:00 Pulse Ox 89 L 01/11/22 13:00 Oxygen Flow Rate 7 01/07/22 17:41 BMI result Body Mass Index 27.3 Const: General: comfortable and no acute distress Eyes: Sclerae: sclerae normal Resp: Effort & Inspection: normal respiratory effort Cardio: Rhythm: regular rhythm GI: Other: Soft, nontender, nondistended, cholecystostomy tube drain in place, the output, clear, nonpurulent Objective Data Active Medications Acetaminophen (Acetaminophen 325 Mg Tablet) 650 mg PO Q6H PRN PRN Reason: Pain, Mild (Pain Scale 1-3) Last Admin: 01/09/22 20:16 Dose: 650 mg Documented by: AMARJIT Calcium Carbonate (Calcium Carbonate 750 Mg Tab.Chew) 750 mg PO Q8H PRN PRN Reason: Heartburn Clozapine (Clozapine 100 Mg Tablet) 100 mg PO BEDTIME [facility] Famotidine (Famotidine 20 Mg Tablet) 40 mg PO DAILY [facility] Last Admin: 01/11/22 09:35 Dose: 40 mg Documented by: LUCIEN Haloperidol Lactate (Haloperidol Lactate 5 Mg/Ml Vial) 2 mg IVPUSH Q4H PRN PRN Reason: agitation Heparin Sodium (Porcine) (Heparin Sodium,Porcine 5,000 Unit/Ml Vial) 5,000 unit SUBCUT Q8H [facility] Last Admin: 01/11/22 11:19 Dose: 5,000 unit Documented by: LUCIEN Piperacillin Sod/Tazobactam (Sod 3.375 gm/ Sodium Chloride) 100 mls @ 200 mls/hr IV Q6H [facility] Last Infusion: 01/11/22 10:22 Dose: 0 mls/hr Documented by: LUCIEN Albumin Human (Kedbumin 25 %) 100 mls @ 100 mls/hr IV Q6H [facility] Stop: 01/12/22 03:29 Last Admin: 01/11/22 13:43 Dose: 100 mls/hr Documented by: LUCIEN Lamotrigine (Lamotrigine 100 Mg Tablet) 150 mg PO BID [facility] Last Admin: 01/07/22 08:41 Dose: Not Given Documented by: KOLTON Non-Admin Reason: poor cognition/swallow Ondansetron HCl (Ondansetron Hcl 4 Mg/2 Ml Vial) 4 mg IVPUSH Q4H PRN PRN Reason: Nausea Last Admin: 01/10/22 03:09 Dose: 4 mg Documented by: AMARJIT Sodium Chloride (0.9 % Sodium Chloride Flush 3 Ml Syringe) 3 ml IVFLUSH QSHIFT [facility] Last Admin: 01/11/22 09:34 Dose: 3 ml Documented by: LUCIEN Sodium Chloride (Sodium Chloride 0.65 % Nasal 44 Ml Sprbtl) 1 spray NOSTRIL-B Q8H PRN PRN Reason: Nasal Congestion Labs CBC & Chem 7: 01/11/22 05:17 01/11/22 05:17 Labs: Laboratory Results - last 24 hr 01/10/22 01/11/22 01/11/22 19:30 05:17 05:17 MCV 91.5 MCH 29.1 MCHC 31.8 RDW 14.9 Plt Count 257 MPV 9.5 Immature Gran % (Auto) 0.2 Neut % (Auto) 67.6 Lymph % (Auto) 13.5 L [place] % (Auto) 6.8 Eos % (Auto) 11.4 H Baso % (Auto) 0.5 Lymph # (Auto) 1.2 [place] # (Auto) 0.6 Eos # (Auto) 1.0 H Baso # (Auto) 0.0 Abs Immat Gran (auto) 0.02 Absolute Neuts (auto) 6.0 Absolute Nucleated RBC 0.000 Nucleated RBC % (auto) 0.0 Anion Gap 12 11 L Estim Creat Clear Calc 94.7 93.2 Estimated GFR > 60 > 60 Random Glucose 132 H 132 H Calcium 8.1 L 8.8 D Phosphorus 2.2 L 2.7 Magnesium 2.3 2.3 Total Bilirubin 2.0 H Direct Bilirubin 1.2 H AST 130 H ALT 148 H Alkaline Phosphatase 241 H D Total Protein 5.1 L Albumin 3.2 L Microbiology Microbiology Results: Microbiology 01/06/22 11:25 Blood Culture - Final Blood - Venous No growth after 5 days. 01/06/22 11:24 Blood Culture - Final Blood - Venous No growth after 5 days. 01/07/22 11:45 Gram Stain - Final Gallbladder Routine Culture - Final No growth after 2 days Anaerobic Culture - Preliminary No growth to date. Procedures Date of Service Date of Service: 01/11/22 Progress Note: A&P Assessment and plan (1) Gallbladder sludge: Status: Acute Assessment and Plan: Status post cholecystostomy tube drain Looks well clinically Bilirubin elevated Follow closely Plan on cholecystectomy, laparoscopic possible open this admission depending on bilirubin levels Looks comfortable and hemodynamically stable Fall Risk Details Current Medications: Current Medications Acetaminophen (Acetaminophen 325 Mg Tablet) 650 mg PO Q6H PRN PRN Reason: Pain, Mild (Pain Scale 1-3) Last Admin: 01/09/22 20:16 Dose: 650 mg Documented by: Calcium Carbonate (Calcium Carbonate 750 Mg Tab.Chew) 750 mg PO Q8H PRN PRN Reason: Heartburn Clozapine (Clozapine 100 Mg Tablet) 100 mg PO BEDTIME [facility] Famotidine (Famotidine 20 Mg Tablet) 40 mg PO DAILY [facility] Last Admin: 01/11/22 09:35 Dose: 40 mg Documented by: Haloperidol Lactate (Haloperidol Lactate 5 Mg/Ml Vial) 2 mg IVPUSH Q4H PRN PRN Reason: agitation Heparin Sodium (Porcine) (Heparin Sodium,Porcine 5,000 Unit/Ml Vial) 5,000 unit SUBCUT Q8H [facility] Last Admin: 01/11/22 11:19 Dose: 5,000 unit Documented by: Piperacillin Sod/Tazobactam (Sod 3.375 gm/ Sodium Chloride) 100 mls @ 200 mls/hr IV Q6H [facility] Last Infusion: 01/11/22 10:22 Dose: Infused Documented by: Albumin Human (Kedbumin 25 %) 100 mls @ 100 mls/hr IV Q6H [facility] Stop: 01/12/22 03:29 Last Admin: 01/11/22 13:43 Dose: 100 mls/hr Documented by: Lamotrigine (Lamotrigine 100 Mg Tablet) 150 mg PO BID [facility] Last Admin: 01/07/22 08:41 Dose: Not Given Documented by: Ondansetron HCl (Ondansetron Hcl 4 Mg/2 Ml Vial) 4 mg IVPUSH Q4H PRN PRN Reason: Nausea Last Admin: 01/10/22 03:09 Dose: 4 mg Documented by: Sodium Chloride (0.9 % Sodium Chloride Flush 3 Ml Syringe) 3 ml IVFLUSH QSHIFT PRIYANKA Last Admin: 01/11/22 09:34 Dose: 3 ml Documented by: Sodium Chloride (Sodium Chloride 0.65 % Nasal 44 Ml Sprbtl) 1 spray NOSTRIL-B Q8H PRN PRN Reason: Nasal Congestion Time Spent With Patient Time: Total time spent is greater than 50% in coordination of care (as documented) at patient's floor/unit and/or counseling patient: Quality Stroke Does the patient have a stroke diagnosis?: No VTE Prior VTE?: No VTE Risk Level:: Medical - moderate - high VTE Device Contraindication: Treatment Not Indicated VTE Drug Contraindication: N/A - Med Ordered
[2022-01-11] MEDS: cloZAPine 100 MG TABLET PO (21:13)
[2022-01-11] MEDS: lamoTRIgine 100 MG TABLET 150 MG PO (21:23)
[2022-01-11] MEDS: ondansetron HCL 4 MG/2 ML VIAL IVPUSH (22:49)
[2022-01-12] MEDS: Albumin Human 25 % 100 ML IV (03:22)
[2022-01-12] MEDS: Heparin Sodium,Porcine 5,000 UNIT/ML VIAL 5000 UNIT SUBCUT ×3 (03:27→18:36)
[2022-01-12 03:38] VITALS: BP 108/59; PULSE 82; RESP 20; TEMP 36.7; O2SAT 91
[2022-01-12 07:08] LABS: MANUAL DIFF FLAG NO
[2022-01-12 07:13] LABS: Basophils Absolute Auto 0.1 X10*3/uL (0.0-0.2); Basophils Percent Auto 0.7 % (0-2); Eosinophils Absolute Auto 0.9 X10*3/uL (0.0-0.4); Eosinophils Percent Auto 12.9 % (0-4); Hemoglobin 9.4 g/dl (12.0-16.0); Imm Gran Abs Auto 0.03 X10*3/uL (0.00-0.03); Imm Gran Pct Auto 0.4 % (0.0-0.4); Lymphocytes Absolute Auto 1.3 X10*3/uL (1.2-4.9); Lymphocytes Percent Auto 18.5 % (20-40); Mean Corpuscular HGB Conc 31.3 g/dl (31.0-35.0); Mean Corpuscular Hemoglobin 28.8 pg (27.0-33.0); Mean Platelet Volume 9.6 fL (9.4-12.3); Monocytes Absolute Auto 0.4 X10*3/uL (0.1-1.2); Monocytes Percent Auto 6.3 % (2-11); Neutrophils Absolute Auto 4.2 x10*3/uL (2.0-8.3); Neutrophils Percent Auto 61.2 % (45-73); Platelet Count 242 X10*3/uL (160-400); Red Blood Count 3.26 X10*6/uL (4.20-5.50); Red Cell Distribution Width 15.2 % (11.0-16.0); White Blood Count 6.8 X10*3/uL (4.8-10.8)
[2022-01-12 07:29] LABS: Alanine Aminotransferase 116 U/L (0-31); Albumin Level 3.9 g/dL (3.5-5.0); Alkaline Phosphatase 197 U/L (39-117); Anion Gap 12 (12-20); Aspartate Amino Transferase 133 U/L (5-31); Bilirubin Total 1.2 mg/dL (0.0-1.0); Blood Urea Nitrogen 10 mg/dL (9-16); Carbon Dioxide 24 mmol/L (22-29); Chloride 111 mmol/L (96-108); Creatinine Clr Calc Pharmacy 80.6; Estimated Glomerular Filt Rate > 60; Glucose Random 129 mg/dL (60-115); Magnesium 2.4 mg/dL (1.6-2.6); Phosphorus 2.7 mg/dL (2.7-4.5); Potassium 3.6 mmol/L (3.3-5.1); Sodium 143 mmol/L (135-145); Total Protein 5.6 g/dL (6.5-8.0)
[2022-01-12 07:52] VITALS: BP 112/55; PULSE 77; RESP 20; TEMP 36.5; O2SAT 94
[2022-01-12 10:01] LABS: Haptoglobin 146 mg/dL (43-212)
[2022-01-12] MEDS: Famotidine 20 MG TABLET 40 MG PO (10:22)
[2022-01-12] MEDS: 0.9 % Sodium Chloride Flush 3 ML SYRINGE IVFLUSH (10:23)
[2022-01-12] MEDS: lamoTRIgine 100 MG TABLET 150 MG PO ×2 (10:23→21:22)
[2022-01-12 11:18] VITALS: BP 112/55; PULSE 79; RESP 20; TEMP 36.2; O2SAT 94
--- NOTE | 2022-01-12 13:18 | P.PNGS_ITS ---
Subjective Subjective Date of Service: 01/12/22 Interval history: Denies abdominal pain at this time Seems to have been tolerating oral intake No fever Physical Exam Vital Signs: Vital Signs: Last Vital Signs Temp 97.1 F 01/12/22 11:18 Pulse 79 01/12/22 11:18 Resp 20 01/12/22 11:18 BP 112/55 L 01/12/22 11:18 Pulse Ox 94 01/12/22 11:18 Oxygen Flow Rate 7 01/07/22 17:41 BMI result Body Mass Index 27.3 Const: General: comfortable and no acute distress Resp: Effort & Inspection: normal respiratory effort Cardio: Rate: regular rate GI: Other: Soft, apparent tenderness, drain in place, with very scanty output Objective Data Active Medications Acetaminophen (Acetaminophen 325 Mg Tablet) 650 mg PO Q6H PRN PRN Reason: Pain, Mild (Pain Scale 1-3) Last Admin: 01/09/22 20:16 Dose: 650 mg Documented by: CYRZ Calcium Carbonate (Calcium Carbonate 750 Mg Tab.Chew) 750 mg PO Q8H PRN PRN Reason: Heartburn Clozapine (Clozapine 100 Mg Tablet) 100 mg PO BEDTIME [facility] Last Admin: 01/11/22 21:13 Dose: 100 mg Documented by: NAUMOC Famotidine (Famotidine 20 Mg Tablet) 40 mg PO DAILY [facility] Last Admin: 01/12/22 10:22 Dose: 40 mg Documented by: KEYON Haloperidol Lactate (Haloperidol Lactate 5 Mg/Ml Vial) 2 mg IVPUSH Q4H PRN PRN Reason: agitation Heparin Sodium (Porcine) (Heparin Sodium,Porcine 5,000 Unit/Ml Vial) 5,000 unit SUBCUT Q8H [facility] Last Admin: 01/12/22 10:22 Dose: 5,000 unit Documented by: KEYON Piperacillin Sod/Tazobactam (Sod 3.375 gm/ Sodium Chloride) 100 mls @ 200 mls/hr IV Q6H [facility] Last Infusion: 01/12/22 11:46 Dose: 0 mls/hr Documented by: N-MCLEP Lamotrigine (Lamotrigine 100 Mg Tablet) 150 mg PO BID [facility] Last Admin: 01/12/22 10:23 Dose: 150 mg Documented by: KEYON Ondansetron HCl (Ondansetron Hcl 4 Mg/2 Ml Vial) 4 mg IVPUSH Q4H PRN PRN Reason: Nausea Last Admin: 01/11/22 22:49 Dose: 4 mg Documented by: NAUMOC Sodium Chloride (0.9 % Sodium Chloride Flush 3 Ml Syringe) 3 ml IVFLUSH QSHIFT PRIYANKA Last Admin: 01/12/22 10:23 Dose: 3 ml Documented by: DOBROPrema Sodium Chloride (Sodium Chloride 0.65 % Nasal 44 Ml Sprbtl) 1 spray NOSTRIL-B Q8H PRN PRN Reason: Nasal Congestion Labs CBC & Chem 7: 01/12/22 06:41 01/12/22 06:41 Labs: Laboratory Results - last 24 hr 01/08/22 01/12/22 01/12/22 05:38 06:41 06:41 MCV 92.0 MCH 28.8 MCHC 31.3 RDW 15.2 Plt Count 242 MPV 9.6 Immature Gran % (Auto) 0.4 Neut % (Auto) 61.2 Lymph % (Auto) 18.5 L [place] % (Auto) 6.3 Eos % (Auto) 12.9 H Baso % (Auto) 0.7 Lymph # (Auto) 1.3 [place] # (Auto) 0.4 Eos # (Auto) 0.9 H Baso # (Auto) 0.1 Abs Immat Gran (auto) 0.03 Absolute Neuts (auto) 4.2 Absolute Nucleated RBC 0.000 Nucleated RBC % (auto) 0.0 Haptoglobin 146 Anion Gap 12 Estim Creat Clear Calc 80.6 Estimated GFR > 60 Random Glucose 129 H Calcium 9.0 Phosphorus 2.7 Magnesium 2.4 Total Bilirubin 1.2 H AST 133 H ALT 116 H Alkaline Phosphatase 197 H Total Protein 5.6 L Albumin 3.9 D Microbiology Microbiology Results: Microbiology 01/07/22 11:45 Gram Stain - Final Gallbladder Routine Culture - Final No growth after 2 days Anaerobic Culture - Final NO GROWTH AFTER 5 DAYS 01/06/22 21:55 Blood Culture - Final Blood - Venous No growth after 5 days. 01/06/22 21:59 Blood Culture - Final Blood - Venous No growth after 5 days. 01/06/22 11:25 Blood Culture - Final Blood - Venous No growth after 5 days. 01/06/22 11:24 Blood Culture - Final Blood - Venous No growth after 5 days. Procedures Date of Service Date of Service: 01/12/22 Progress Note: A&P Assessment and plan (1) Gallbladder sludge: Status: Acute Plan Status post cholecystostomy tube drain by IR Doing well stable vital sign Abdomen remains benign Plan inpatient cholecystectomy - likely if she remains medically stable will discuss with family Fall Risk Details Current Medications: Current Medications Acetaminophen (Acetaminophen 325 Mg Tablet) 650 mg PO Q6H PRN PRN Reason: Pain, Mild (Pain Scale 1-3) Last Admin: 01/09/22 20:16 Dose: 650 mg Documented by: Calcium Carbonate (Calcium Carbonate 750 Mg Tab.Chew) 750 mg PO Q8H PRN PRN Reason: Heartburn Clozapine (Clozapine 100 Mg Tablet) 100 mg PO BEDTIME [facility] Last Admin: 01/11/22 21:13 Dose: 100 mg Documented by: Famotidine (Famotidine 20 Mg Tablet) 40 mg PO DAILY [facility] Last Admin: 01/12/22 10:22 Dose: 40 mg Documented by: Haloperidol Lactate (Haloperidol Lactate 5 Mg/Ml Vial) 2 mg IVPUSH Q4H PRN PRN Reason: agitation Heparin Sodium (Porcine) (Heparin Sodium,Porcine 5,000 Unit/Ml Vial) 5,000 unit SUBCUT Q8H [facility] Last Admin: 01/12/22 10:22 Dose: 5,000 unit Documented by: Piperacillin Sod/Tazobactam (Sod 3.375 gm/ Sodium Chloride) 100 mls @ 200 mls/hr IV Q6H [facility] Last Infusion: 01/12/22 11:46 Dose: Infused Documented by: Lamotrigine (Lamotrigine 100 Mg Tablet) 150 mg PO BID [facility] Last Admin: 01/12/22 10:23 Dose: 150 mg Documented by: Ondansetron HCl (Ondansetron Hcl 4 Mg/2 Ml Vial) 4 mg IVPUSH Q4H PRN PRN Reason: Nausea Last Admin: 01/11/22 22:49 Dose: 4 mg Documented by: Sodium Chloride (0.9 % Sodium Chloride Flush 3 Ml Syringe) 3 ml IVFLUSH QSHIFT [facility] Last Admin: 01/12/22 10:23 Dose: 3 ml Documented by: Sodium Chloride (Sodium Chloride 0.65 % Nasal 44 Ml Sprbtl) 1 spray NOSTRIL-B Q8H PRN PRN Reason: Nasal Congestion Time Spent With Patient Time: Total time spent is greater than 50% in coordination of care (as documented) at patient's floor/unit and/or counseling patient: Quality Stroke Does the patient have a stroke diagnosis?: No VTE Prior VTE?: No VTE Risk Level:: Medical - moderate - high VTE Device Contraindication: Treatment Not Indicated VTE Drug Contraindication: N/A - Med Ordered
[2022-01-12 15:07] VITALS: BP 113/62; PULSE 75; RESP 15; TEMP 36.4; O2SAT 93
--- NOTE | 2022-01-12 15:52 | P.PNIM_ITS ---
Subjective Subjective Date of Service: 01/12/22 Interval History: No acute issues overnight. Somnolent but arousable this a.m. Review of Systems Unable to secondary to confusion Physical Exam Vital Signs: Vital Signs: Last Vital Signs Temp 97.6 F 01/12/22 15:07 Pulse 75 01/12/22 15:07 Resp 15 01/12/22 15:07 BP 113/62 01/12/22 15:07 Pulse Ox 93 01/12/22 15:07 Oxygen Flow Rate 7 01/07/22 17:41 BMI result Body Mass Index 27.3 Const: Other: Awake confused (at baseline.. Known to rfp writer) Resp: Other: Clear to auscultation bilaterally no rales rhonchi or wheezes Cardio: Other: No S4; positive S1-S2; no S3 murmurs rubs or gallops GI: Other: Soft nontender nondistended with normoactive bowel sounds. There is no right upper quadrant tenderness or rebound noted Extrem: Other: No edema bilaterally Objective Data Active Medications Acetaminophen (Acetaminophen 325 Mg Tablet) 650 mg PO Q6H PRN PRN Reason: Pain, Mild (Pain Scale 1-3) Last Admin: 01/09/22 20:16 Dose: 650 mg Documented by: CYRRonald Calcium Carbonate (Calcium Carbonate 750 Mg Tab.Chew) 750 mg PO Q8H PRN PRN Reason: Heartburn Clozapine (Clozapine 100 Mg Tablet) 100 mg PO BEDTIME [facility] Last Admin: 01/11/22 21:13 Dose: 100 mg Documented by: MARK Famotidine (Famotidine 20 Mg Tablet) 40 mg PO DAILY [facility] Last Admin: 01/12/22 10:22 Dose: 40 mg Documented by: KEYON Haloperidol Lactate (Haloperidol Lactate 5 Mg/Ml Vial) 2 mg IVPUSH Q4H PRN PRN Reason: agitation Heparin Sodium (Porcine) (Heparin Sodium,Porcine 5,000 Unit/Ml Vial) 5,000 unit SUBCUT Q8H [facility] Last Admin: 01/12/22 10:22 Dose: 5,000 unit Documented by: KEYON Piperacillin Sod/Tazobactam (Sod 3.375 gm/ Sodium Chloride) 100 mls @ 200 mls/hr IV Q6H [facility] Last Infusion: 01/12/22 11:46 Dose: 0 mls/hr Documented by: N-MCLEP Lamotrigine (Lamotrigine 100 Mg Tablet) 150 mg PO BID [facility] Last Admin: 01/12/22 10:23 Dose: 150 mg Documented by: BROB Ondansetron HCl (Ondansetron Hcl 4 Mg/2 Ml Vial) 4 mg IVPUSH Q4H PRN PRN Reason: Nausea Last Admin: 01/11/22 22:49 Dose: 4 mg Documented by: NAUMOC Sodium Chloride (0.9 % Sodium Chloride Flush 3 Ml Syringe) 3 ml IVFLUSH QSHIFT [facility] Last Admin: 01/12/22 10:23 Dose: 3 ml Documented by: DOBROB Sodium Chloride (Sodium Chloride 0.65 % Nasal 44 Ml Sprbtl) 1 spray NOSTRIL-B Q8H PRN PRN Reason: Nasal Congestion Labs CBC & Chem 7: 01/12/22 06:41 01/12/22 06:41 Labs: Laboratory Results - last 24 hr 01/08/22 01/12/22 01/12/22 05:38 06:41 06:41 MCV 92.0 MCH 28.8 MCHC 31.3 RDW 15.2 Plt Count 242 MPV 9.6 Immature Gran % (Auto) 0.4 Neut % (Auto) 61.2 Lymph % (Auto) 18.5 L [place] % (Auto) 6.3 Eos % (Auto) 12.9 H Baso % (Auto) 0.7 Lymph # (Auto) 1.3 [place] # (Auto) 0.4 Eos # (Auto) 0.9 H Baso # (Auto) 0.1 Abs Immat Gran (auto) 0.03 Absolute Neuts (auto) 4.2 Absolute Nucleated RBC 0.000 Nucleated RBC % (auto) 0.0 Haptoglobin 146 Anion Gap 12 Estim Creat Clear Calc 80.6 Estimated GFR > 60 Random Glucose 129 H Calcium 9.0 Phosphorus 2.7 Magnesium 2.4 Total Bilirubin 1.2 H AST 133 H ALT 116 H Alkaline Phosphatase 197 H Total Protein 5.6 L Albumin 3.9 D Microbiology Microbiology Results: Microbiology 01/07/22 11:45 Gram Stain - Final Gallbladder Routine Culture - Final No growth after 2 days Anaerobic Culture - Final NO GROWTH AFTER 5 DAYS 01/06/22 21:55 Blood Culture - Final Blood - Venous No growth after 5 days. 01/06/22 21:59 Blood Culture - Final Blood - Venous No growth after 5 days. 01/06/22 11:25 Blood Culture - Final Blood - Venous No growth after 5 days. 01/06/22 11:24 Blood Culture - Final Blood - Venous No growth after 5 days. Assessment and Plan (1) Biliary calculus with obstruction without cholecystitis: Status: Acute (2) Abnormal LFTs: Status: Acute (3) Traumatic brain injury: Status: Acute Plan 62-year-old female with known cystic duct obstruction by HIDA scan last admi ssion presents with acute alteration in mental status this morning from [facility]. CT scan continues to demonstrate cholelithiasis with stone in the gallbladder neck; exam however is totally benign. Will admit for further workup of same 1. Biliary calculus with obstruction without cholecystitis -improved with percutaneous drainage -LFTs improved but not normalized -discussed with surgery.... Likely CC 2.TBI - continue outpatient therapies -adjust as indicated Full code Lovenox Patient will require at least 1 midnight going forward to evaluate liver biopsy and LFTs Quality Stroke Does the patient have a stroke diagnosis?: No VTE Prior VTE?: No VTE Risk Level:: Medical - moderate - high VTE Device Contraindication: Treatment Not Indicated VTE Drug Contraindication: N/A - Med Ordered
[2022-01-12 19:17] VITALS: BP 110/51; PULSE 88; RESP 17; TEMP 37.2; O2SAT 94
[2022-01-12] MEDS: cloZAPine 100 MG TABLET PO (21:23)
[2022-01-12 23:56] VITALS: BP 116/55; PULSE 86; RESP 18; TEMP 37.1; O2SAT 94
[2022-01-13] MEDS: 0.9 % Sodium Chloride Flush 3 ML SYRINGE IVFLUSH ×4 (00:37→22:17)
[2022-01-13 04:00] VITALS: BP 120/69; PULSE 85; RESP 20; TEMP 36.5; O2SAT 92
[2022-01-13 06:24] LABS: MANUAL DIFF FLAG NO
[2022-01-13 06:31] LABS: Basophils Absolute Auto 0.1 X10*3/uL (0.0-0.2); Basophils Percent Auto 0.7 % (0-2); Eosinophils Absolute Auto 1.1 X10*3/uL (0.0-0.4); Eosinophils Percent Auto 13.9 % (0-4); Hemoglobin 10.4 g/dl (12.0-16.0); Imm Gran Abs Auto 0.04 X10*3/uL (0.00-0.03); Imm Gran Pct Auto 0.5 % (0.0-0.4); Lymphocytes Absolute Auto 0.9 X10*3/uL (1.2-4.9); Lymphocytes Percent Auto 12.2 % (20-40); Mean Corpuscular HGB Conc 31.5 g/dl (31.0-35.0); Mean Corpuscular Hemoglobin 28.9 pg (27.0-33.0); Mean Corpuscular Volume 91.7 fL (80.0-98.0); Mean Platelet Volume 9.7 fL (9.4-12.3); Monocytes Absolute Auto 0.5 X10*3/uL (0.1-1.2); Monocytes Percent Auto 6.4 % (2-11); Neutrophils Absolute Auto 5.1 x10*3/uL (2.0-8.3); Neutrophils Percent Auto 66.3 % (45-73); Platelet Count 273 X10*3/uL (160-400); Red Cell Distribution Width 14.8 % (11.0-16.0); White Blood Count 7.7 X10*3/uL (4.8-10.8)
[2022-01-13 06:53] LABS: Alanine Aminotransferase 131 U/L (0-31); Albumin Level 3.7 g/dL (3.5-5.0); Alkaline Phosphatase 239 U/L (39-117); Anion Gap 14 (12-20); Aspartate Amino Transferase 179 U/L (5-31); Bilirubin Total 1.1 mg/dL (0.0-1.0); Blood Urea Nitrogen 7 mg/dL (9-16); Calcium 9.1 mg/dL (8.4-10.2); Carbon Dioxide 22 mmol/L (22-29); Chloride 110 mmol/L (96-108); Creatinine Clr Calc Pharmacy 84.1; Estimated Glomerular Filt Rate > 60; Glucose Fasting 135 mg/dL (60-99); Potassium 3.4 mmol/L (3.3-5.1); Sodium 143 mmol/L (135-145); Total Protein 5.7 g/dL (6.5-8.0)
[2022-01-13 07:59] VITALS: BP 102/54; PULSE 78; RESP 20; TEMP 37.2; O2SAT 94
[2022-01-13] MEDS: Heparin Sodium,Porcine 5,000 UNIT/ML VIAL 5000 UNIT SUBCUT ×2 (09:50→18:24)
[2022-01-13 11:41] VITALS: BP 101/55; PULSE 81; RESP 20; TEMP 36.3; O2SAT 95
--- NOTE | 2022-01-13 12:37 | HO.PM.IMPN ---
Subjective Subjective Date of Service: 01/13/22 Interval History: patient is somnolent arousable with verbal stimuli, receive Haldol last night due to agitation, unable to obtain history due to somnolence and underlying dementia. Review of Systems Review of Systems: Yes Unobtainable due to mental status Physical Exam Vital Signs: Vital Signs: Last Vital Signs Temp 97.3 F 01/13/22 11:41 Pulse 81 01/13/22 11:41 Resp 20 01/13/22 11:41 BP 101/55 L 01/13/22 11:41 Pulse Ox 95 01/13/22 11:41 Oxygen Flow Rate 7 01/07/22 17:41 BMI result Body Mass Index 27.3 Const: Other: General resting in bed comfortably, no acute distress. Neck supple no JVD. CVS regular rate rhythm, Respiratory lungs clear to auscultation, no respiratory distress, no wheeze, no rhonchi. Gastrointestinal abdomen soft, nontender, bowel sounds audible, no guarding , cholecystostomy tube with serosanguineous drainage Extremities no edema. Neuro nonfocal, moving all 4 extremity speech clear. Skin no rash Objective Data Active Medications Acetaminophen (Acetaminophen 325 Mg Tablet) 650 mg PO Q6H PRN PRN Reason: Pain, Mild (Pain Scale 1-3) Last Admin: 01/09/22 20:16 Dose: 650 mg Documented by: AMARJIT Calcium Carbonate (Calcium Carbonate 750 Mg Tab.Chew) 750 mg PO Q8H PRN PRN Reason: Heartburn Clozapine (Clozapine 100 Mg Tablet) 100 mg PO BEDTIME [facility] Last Admin: 01/12/22 21:23 Dose: 100 mg Documented by: LUCIO Famotidine (Famotidine 20 Mg Tablet) 40 mg PO DAILY [facility] Last Admin: 01/13/22 10:01 Dose: Not Given Documented by: ANDRY Non-Admin Reason: unable to administer safely Haloperidol Lactate (Haloperidol Lactate 5 Mg/Ml Vial) 2 mg IVPUSH Q4H PRN PRN Reason: agitation Heparin Sodium (Porcine) (Heparin Sodium,Porcine 5,000 Unit/Ml Vial) 5,000 unit SUBCUT Q8H [facility] Last Admin: 01/13/22 09:50 Dose: 5,000 unit Documented by: ANDRY Piperacillin Sod/Tazobactam (Sod 3.375 gm/ Sodium Chloride) 100 mls @ 200 mls/hr IV Q6H [facility] Last Infusion: 01/13/22 10:28 Dose: 0 mls/hr Documented by: ANDRY Lamotrigine (Lamotrigine 100 Mg Tablet) 150 mg PO BID [facility] Last Admin: 01/13/22 10:01 Dose: Not Given Documented by: ANDRY Non-Admin Reason: unable to administer safely Ondansetron HCl (Ondansetron Hcl 4 Mg/2 Ml Vial) 4 mg IVPUSH Q4H PRN PRN Reason: Nausea Last Admin: 01/11/22 22:49 Dose: 4 mg Documented by: MARK Sodium Chloride (0.9 % Sodium Chloride Flush 3 Ml Syringe) 3 ml IVFLUSH QSHIFT [facility] Last Admin: 01/13/22 09:50 Dose: 3 ml Documented by: ANDRY Sodium Chloride (Sodium Chloride 0.65 % Nasal 44 Ml Sprbtl) 1 spray NOSTRIL-B Q8H PRN PRN Reason: Nasal Congestion Labs CBC & Chem 7: 01/13/22 05:47 01/13/22 05:47 Labs: Laboratory Results - last 24 hr 01/13/22 01/13/22 05:47 05:47 MCV 91.7 MCH 28.9 MCHC 31.5 RDW 14.8 Plt Count 273 MPV 9.7 Immature Gran % (Auto) 0.5 H Neut % (Auto) 66.3 Lymph % (Auto) 12.2 L Esmeralda % (Auto) 6.4 Eos % (Auto) 13.9 H Baso % (Auto) 0.7 Lymph # (Auto) 0.9 L Esmeralda # (Auto) 0.5 Eos # (Auto) 1.1 H Baso # (Auto) 0.1 Abs Immat Gran (auto) 0.04 H Absolute Neuts (auto) 5.1 Absolute Nucleated RBC 0.000 Nucleated RBC % (auto) 0.0 Anion Gap 14 Estim Creat Clear Calc 84.1 Estimated GFR > 60 Fasting Glucose 135 H Calcium 9.1 Total Bilirubin 1.1 H AST 179 H ALT 131 H Alkaline Phosphatase 239 H D Total Protein 5.7 L Albumin 3.7 Assessment and Plan (1) Biliary calculus with obstruction without cholecystitis: Status: Acute (2) Abnormal LFTs: Status: Acute Plan 62-year-old lady with underlying history of TBI, dementia, delusional disorder, [facility], with recent admission to [facility] on 12/22/2021 through 01/05/2022 for pneumonia also evaluated, by General surgery, for impacted cystic stone and treated conservatively. Discharged on 01/05/2022, readmitted on 01/06/2022 ,status post cholecystostomy on 01/07/2022. Hospital course significant for septic shock requiring initiation of pressor support and transferred to the intensive care unit. Evaluated by General surgery and being planned for cholecystectomy. 1. Biliary calculus with obstruction without cholecystitis - improved with percutaneous drainage - WBC normalized, no fever since admission -LFTs remains elevated, no significant change in last 48 hours -CCY planned for / NPO after midnight 2.TBI/ dementia unspecified -continue Clozaril/Lamictal and as needed Haldol Full code DVT prophylaxis on Lovenox need continued inpatient hospitalization for cholecystectomy is scheduled for January 14 Quality Stroke Does the patient have a stroke diagnosis?: No VTE Prior VTE?: No VTE Risk Level:: Medical - moderate - high VTE Device Contraindication: Treatment Not Indicated VTE Drug Contraindication: N/A - Med Ordered
--- NOTE | 2022-01-13 14:36 | PM.PNGS ---
Subjective Subjective Date of Service: 01/14/22 Interval history: No new events reported Patient seems to be tolerating diet well States that she feels well Denies pain at this time Physical Exam Vital Signs: Vital Signs: Last Vital Signs Temp 97.3 F 01/13/22 11:41 Pulse 81 01/13/22 11:41 Resp 20 01/13/22 11:41 BP 101/55 L 01/13/22 11:41 Pulse Ox 95 01/13/22 11:41 Oxygen Flow Rate 7 01/07/22 17:41 BMI result Body Mass Index 27.3 Const: Other: Answers simple questions General: healthy appearing and comfortable Resp: Effort & Inspection: normal respiratory effort Cardio: Rate: regular rate GI: Other: Soft, no obvious tenderness, drain in place on the right side, palpable hernia on previous G-tube on the midline upper abdomen, only partially reducible, no apparent tenderness on this area Objective Data Active Medications Acetaminophen (Acetaminophen 325 Mg Tablet) 650 mg PO Q6H PRN PRN Reason: Pain, Mild (Pain Scale 1-3) Last Admin: 01/09/22 20:16 Dose: 650 mg Documented by: AMARJIT Calcium Carbonate (Calcium Carbonate 750 Mg Tab.Chew) 750 mg PO Q8H PRN PRN Reason: Heartburn Clozapine (Clozapine 100 Mg Tablet) 100 mg PO BEDTIME [facility] Last Admin: 01/12/22 21:23 Dose: 100 mg Documented by: LUCIO Famotidine (Famotidine 20 Mg Tablet) 40 mg PO DAILY [facility] Last Admin: 01/13/22 10:01 Dose: Not Given Documented by: ANDRY Non-Admin Reason: unable to administer safely Haloperidol Lactate (Haloperidol Lactate 5 Mg/Ml Vial) 2 mg IVPUSH Q4H PRN PRN Reason: agitation Heparin Sodium (Porcine) (Heparin Sodium,Porcine 5,000 Unit/Ml Vial) 5,000 unit SUBCUT Q8H [facility] Last Admin: 01/13/22 09:50 Dose: 5,000 unit Documented by: ANDRY Piperacillin Sod/Tazobactam (Sod 3.375 gm/ Sodium Chloride) 100 mls @ 200 mls/hr IV Q6H [facility] Last Infusion: 01/13/22 10:28 Dose: 0 mls/hr Documented by: ANDRY Lamotrigine (Lamotrigine 100 Mg Tablet) 150 mg PO BID [facility] Last Admin: 01/13/22 10:01 Dose: Not Given Documented by: ANDRY Non-Admin Reason: unable to administer safely Ondansetron HCl (Ondansetron Hcl 4 Mg/2 Ml Vial) 4 mg IVPUSH Q4H PRN PRN Reason: Nausea Last Admin: 01/11/22 22:49 Dose: 4 mg Documented by: MARK Sodium Chloride (0.9 % Sodium Chloride Flush 3 Ml Syringe) 3 ml IVFLUSH QSHIFT [facility] Last Admin: 01/13/22 09:50 Dose: 3 ml Documented by: ANDRY Sodium Chloride (Sodium Chloride 0.65 % Nasal 44 Ml Sprbtl) 1 spray NOSTRIL-B Q8H PRN PRN Reason: Nasal Congestion Labs CBC & Chem 7: 01/14/22 06:27 01/14/22 06:25 Labs: Laboratory Results - last 24 hr 01/13/22 01/13/22 05:47 05:47 MCV 91.7 MCH 28.9 MCHC 31.5 RDW 14.8 Plt Count 273 MPV 9.7 Immature Gran % (Auto) 0.5 H Neut % (Auto) 66.3 Lymph % (Auto) 12.2 L Elliott % (Auto) 6.4 Eos % (Auto) 13.9 H Baso % (Auto) 0.7 Lymph # (Auto) 0.9 L Elliott # (Auto) 0.5 Eos # (Auto) 1.1 H Baso # (Auto) 0.1 Abs Immat Gran (auto) 0.04 H Absolute Neuts (auto) 5.1 Absolute Nucleated RBC 0.000 Nucleated RBC % (auto) 0.0 Anion Gap 14 Estim Creat Clear Calc 84.1 Estimated GFR > 60 Fasting Glucose 135 H Calcium 9.1 Total Bilirubin 1.1 H AST 179 H ALT 131 H Alkaline Phosphatase 239 H D Total Protein 5.7 L Albumin 3.7 Procedures Date of Service Date of Service: 01/13/22 Progress Note: A&P Assessment and plan (1) Biliary calculus with obstruction without cholecystitis: Status: Acute Assessment and Plan: Her LFTs have improved. The multiple discussions with her sister Mukesh Nolan. I explained the technique of laparoscopic cholecystectomy and possible open. Review of her CT scan also shows a large hernia in the epigastric area involving the anterior wall the stomach. This is from her previous gastrostomy tube site in 1981 after traumatic brain injury. I explained to the sister that we may need to repair this 1st before we able to proceed with laparoscopic appy. I explained the technique of repair of this hernia with possible mesh placement. I also explained the technique of laparoscopic cholecystectomy and possible open cholecystectomy. also reviewed the risks including but not limited to bleeding, infections, bowel injury, injury to the liver and the bile duct, obstruction, as well as the benefits and alternatives. I reviewed the inherent risks of anesthesia including but not limited to AL, strokes, and pneumonia. The sister says that she wants to proceed with surgery. We have scheduled patient for laparoscopic cholecystectomy and repair of an epigastric hernia with possible mesh placement tomorrow. Fall Risk Details Current Medications: Current Medications Acetaminophen (Acetaminophen 325 Mg Tablet) 650 mg PO Q6H PRN PRN Reason: Pain, Mild (Pain Scale 1-3) Last Admin: 01/09/22 20:16 Dose: 650 mg Documented by: Calcium Carbonate (Calcium Carbonate 750 Mg Tab.Chew) 750 mg PO Q8H PRN PRN Reason: Heartburn Clozapine (Clozapine 100 Mg Tablet) 100 mg PO BEDTIME [facility] Last Admin: 01/12/22 21:23 Dose: 100 mg Documented by: Famotidine (Famotidine 20 Mg Tablet) 40 mg PO DAILY [facility] Last Admin: 01/13/22 10:01 Dose: Not Given Documented by: Haloperidol Lactate (Haloperidol Lactate 5 Mg/Ml Vial) 2 mg IVPUSH Q4H PRN PRN Reason: agitation Heparin Sodium (Porcine) (Heparin Sodium,Porcine 5,000 Unit/Ml Vial) 5,000 unit SUBCUT Q8H [facility] Last Admin: 01/13/22 09:50 Dose: 5,000 unit Documented by: Piperacillin Sod/Tazobactam (Sod 3.375 gm/ Sodium Chloride) 100 mls @ 200 mls/hr IV Q6H [facility] Last Infusion: 01/13/22 10:28 Dose: Infused Documented by: Lamotrigine (Lamotrigine 100 Mg Tablet) 150 mg PO BID [facility] Last Admin: 01/13/22 10:01 Dose: Not Given Documented by: Ondansetron HCl (Ondansetron Hcl 4 Mg/2 Ml Vial) 4 mg IVPUSH Q4H PRN PRN Reason: Nausea Last Admin: 01/11/22 22:49 Dose: 4 mg Documented by: Sodium Chloride (0.9 % Sodium Chloride Flush 3 Ml Syringe) 3 ml IVFLUSH QSHIFT [facility] Last Admin: 01/13/22 09:50 Dose: 3 ml Documented by: Sodium Chloride (Sodium Chloride 0.65 % Nasal 44 Ml Sprbtl) 1 spray NOSTRIL-B Q8H PRN PRN Reason: Nasal Congestion Time Spent With Patient Time: Total time spent is greater than 50% in coordination of care (as documented) at patient's floor/unit and/or counseling patient: Quality Stroke Does the patient have a stroke diagnosis?: No VTE Prior VTE?: No VTE Risk Level:: Medical - moderate - high VTE Device Contraindication: Treatment Not Indicated VTE Drug Contraindication: N/A - Med Ordered
[2022-01-13 15:21] VITALS: BP 101/57; PULSE 86; RESP 16; TEMP 36.9; O2SAT 94
[2022-01-13] MEDS: ondansetron HCL 4 MG/2 ML VIAL IVPUSH (18:30)
[2022-01-13 19:31] VITALS: BP 113/55; PULSE 99; RESP 18; TEMP 37.5; O2SAT 92
[2022-01-13] MEDS: lamoTRIgine 100 MG TABLET 150 MG PO (22:17)
[2022-01-13] MEDS: Piperacillin Sodium/Tazobactam 3.375 GM in 0.9 % Sodium Chloride 50 ML IV (22:17)
[2022-01-13] MEDS: cloZAPine 100 MG TABLET PO (22:17)
[2022-01-13 23:22] VITALS: BP 120/57; PULSE 101; RESP 18; TEMP 37.3; O2SAT 92
[2022-01-14] VITALS (23 sets, daily range): BP systolic 96–115; BP diastolic 38–58; PULSE 75–100; RESP 6–20; TEMP 36.1–37.3; O2SAT 91–95
[2022-01-14] MEDS: Piperacillin Sodium/Tazobactam 3.375 GM in 0.9 % Sodium Chloride 50 ML IV (03:59)
[2022-01-14] MEDS: Heparin Sodium,Porcine 5,000 UNIT/ML VIAL 5000 UNIT SUBCUT (03:59)
[2022-01-14 06:47] LABS: MANUAL DIFF FLAG NO
[2022-01-14 06:55] LABS: Basophils Absolute Auto 0.1 X10*3/uL (0.0-0.2); Basophils Percent Auto 0.5 % (0-2); Eosinophils Absolute Auto 0.8 X10*3/uL (0.0-0.4); Eosinophils Percent Auto 8.1 % (0-4); Hematocrit 38.7 % (37.0-47.0); Hemoglobin 12.3 g/dl (12.0-16.0); Imm Gran Abs Auto 0.04 X10*3/uL (0.00-0.03); Imm Gran Pct Auto 0.4 % (0.0-0.4); Lymphocytes Absolute Auto 1.4 X10*3/uL (1.2-4.9); Lymphocytes Percent Auto 15.2 % (20-40); Mean Corpuscular HGB Conc 31.8 g/dl (31.0-35.0); Mean Corpuscular Volume 91.3 fL (80.0-98.0); Monocytes Absolute Auto 0.5 X10*3/uL (0.1-1.2); Monocytes Percent Auto 5.1 % (2-11); Neutrophils Absolute Auto 6.7 x10*3/uL (2.0-8.3); Neutrophils Percent Auto 70.7 % (45-73); Platelet Count 335 X10*3/uL (160-400); Red Blood Count 4.24 X10*6/uL (4.20-5.50); Red Cell Distribution Width 15.2 % (11.0-16.0); White Blood Count 9.5 X10*3/uL (4.8-10.8)
[2022-01-14 07:14] LABS: Alanine Aminotransferase 174 U/L (0-31); Albumin Level 4.1 g/dL (3.5-5.0); Alkaline Phosphatase 333 U/L (39-117); Anion Gap 19 (12-20); Aspartate Amino Transferase 233 U/L (5-31); Bilirubin Total 1.7 mg/dL (0.0-1.0); Blood Urea Nitrogen 11 mg/dL (9-16); Calcium 9.6 mg/dL (8.4-10.2); Carbon Dioxide 27 mmol/L (22-29); Chloride 106 mmol/L (96-108); Creatinine Clr Calc Pharmacy 76.5; Estimated Glomerular Filt Rate > 60; Glucose Fasting 123 mg/dL (60-99); Sodium 148 mmol/L (135-145); Total Protein 6.7 g/dL (6.5-8.0)
--- NOTE | 2022-01-14 08:32 | P.CONAN_ITS ---
HPI - Anesthesia Eval Consult details Narrative: 62 F for Lap Cholecystectomy possible open and epigastric hernia I had a discussion with Dr. Pollard regarding the timing of the procedure as patient's LFT are still high. Also , patient was recently in the ICU for sepsis and required presser support . As per him, this is surgically indicated and he has already discussed the case with the hospitalist , the Java Spring Developer as well as the patient's sister . They are all on board to proceed with the procedure . They also are aware of increased perioperative risks . [facility] Active Problems Active Problems: All Active Problems (Updated 01/13/22 @ 00:03 by Background Daemon) Hypokalemia (Acute) Sepsis associated hypotension (Acute) Biliary calculus with obstruction without cholecystitis (Acute) Acute alteration in mental status (Acute) Gallbladder sludge (Acute) Abnormal LFTs (Acute) Disruptive mood dysregulation disorder (Acute) GERD (gastroesophageal reflux disease) (Acute) Myopia (Acute) Delusional disorder (Acute) Obsessive compulsive disorder (Acute) Aphasia (Acute) Encounter for annual routine gynecological examination (Acute) Past Medical History Medical History Aphasia Chondrocostal junction syndrome Delusional disorder Dementia Disruptive mood dysregulation disorder Gallstones GERD (gastroesophageal reflux disease) Hx of migraine headaches Hyperlipidemia Myopia Obsessive compulsive disorder Raynauds syndrome Traumatic brain injury Family History Family History Maternal Grandmother Breast cancer Family history of problems with anesthesia: No Surgical History History of Problems with Anesthesia: No Social History Social History Household Members: Caregiver Housing: Assisted Living Facility Do you presently have visiting nurse or other home services: No Unable to assess alcohol history related to: Unable to respond Patient Tobacco Use Status: Never used Tobacco e-Cigarette/Vaping Use: Never Used Use of substances other than those prescribed or required for medical reasons: Unable to respond Currently Displaying Signs/Symptoms of Drug Intoxication Withdrawal: No Spiritual Healthcare Practices: UNKNOWN Cheondoism Healthcare Practices: UNKNOWN Cultural Healthcare Practices: UNKNOWN Are you DNR?: Yes Advance Directives: Yes Advance Directives on File: Yes Advance Directives Date on File: 12/03/21 Do you have thoughts of harming others: None Do you have a plan to hurt others: No Plan Recently lost weight without trying: Unsure Nutrition Risks: On aspiration precautions and Poor intake 0-25% >4 days Patient : No : No Poor oral hygiene: No service: No Current occupational status: disabled Meds Allergies Allergy/AdvReac Type Severity Reaction Status Date / Time No Known Allergies Allergy Verified 12/23/21 17:09 Active Medications: Current Medications Acetaminophen (Acetaminophen 325 Mg Tablet) 650 mg PO Q6H PRN PRN Reason: Pain, Mild (Pain Scale 1-3) Last Admin: 01/09/22 20:16 Dose: 650 mg Documented by: Calcium Carbonate (Calcium Carbonate 750 Mg Tab.Chew) 750 mg PO Q8H PRN PRN Reason: Heartburn Clozapine (Clozapine 100 Mg Tablet) 100 mg PO BEDTIME [facility] Last Admin: 01/13/22 22:17 Dose: 100 mg Documented by: Famotidine (Famotidine 20 Mg Tablet) 40 mg PO DAILY [facility] Last Admin: 01/13/22 10:01 Dose: Not Given Documented by: Haloperidol Lactate (Haloperidol Lactate 5 Mg/Ml Vial) 2 mg IVPUSH Q4H PRN PRN Reason: agitation Heparin Sodium (Porcine) (Heparin Sodium,Porcine 5,000 Unit/Ml Vial) 5,000 unit SUBCUT Q8H [facility] Last Admin: 01/14/22 03:59 Dose: 5,000 unit Documented by: Piperacillin Sod/Tazobactam (Sod 3.375 gm/ Sodium Chloride) 50 mls @ 100 mls/hr IV Q6H [facility] Last Infusion: 01/14/22 05:40 Dose: Infused Documented by: Lamotrigine (Lamotrigine 100 Mg Tablet) 150 mg PO BID [facility] Last Admin: 01/13/22 22:17 Dose: 150 mg Documented by: Ondansetron HCl (Ondansetron Hcl 4 Mg/2 Ml Vial) 4 mg IVPUSH Q4H PRN PRN Reason: Nausea Last Admin: 01/13/22 18:30 Dose: 4 mg Documented by: Sodium Chloride (0.9 % Sodium Chloride Flush 3 Ml Syringe) 3 ml IVFLUSH QSHIFT [facility] Last Admin: 01/13/22 22:17 Dose: 3 ml Documented by: Sodium Chloride (Sodium Chloride 0.65 % Nasal 44 Ml Sprbtl) 1 spray NOSTRIL-B Q8H PRN PRN Reason: Nasal Congestion Home Medications Medication Instructions Recorded Confirmed Last Taken Type acetaminophen 325 mg tablet 650 mg PO Q6H PRN 03/17/21 01/06/22 Unknown History famotidine 40 mg tablet 40 mg PO DAILY 03/17/21 01/06/22 01/05/22 History ibuprofen 600 mg tablet 600 mg PO Q8H PRN 03/17/21 01/06/22 Unknown History loperamide 2 mg capsule 2 mg PO Q6H PRN 03/17/21 01/06/22 Unknown History omeprazole 20 mg capsule,delayed 20 mg PO DAILY 03/17/21 01/06/22 01/05/22 History release sennosides 8.6 mg tablet (Natural 8.6 mg PO Q24H PRN 03/17/21 01/06/22 Unknown History Senna Laxative) sodium chloride 0.65 % nasal spray 1 spray INTRANASAL Q8H PRN 03/17/21 01/06/22 Unknown History aerosol (Hunt Nasal) aripiprazole 5 mg tablet (Abilify) 2.5 mg PO DAILY 12/22/21 01/06/22 01/05/22 History calcium carbonate 500 mg calcium 500 mg PO Q8H PRN 12/22/21 01/06/22 Unknown History (1,250 mg) chewable tablet cetirizine 10 mg tablet 10 mg PO DAILY 12/22/21 01/06/22 Unknown History citalopram 20 mg tablet 20 mg PO DAILY 12/22/21 01/06/22 01/05/22 History clozapine 100 mg tablet (Clozaril) 100 mg PO BEDTIME 12/22/21 01/06/22 01/05/22 History lamotrigine 150 mg tablet 150 mg PO BID 12/22/21 01/06/22 01/05/22 History oxycodone-acetaminophen 5 mg-325 1 tab PO Q4H PRN 12/22/21 01/06/22 Unknown History mg tablet Exam Exam Date and Time: January 14, 202232 Height,Weight and Vital Signs: Height 5 ft 5 in Weight 74.5 kg Last Vital Signs Temp 98.8 F 01/14/22 08:05 Pulse 100 01/14/22 08:05 Resp 20 01/14/22 08:05 BP 103/52 L 01/14/22 08:05 Pulse Ox 94 01/14/22 08:05 Oxygen Flow Rate 7 01/07/22 17:41 Pertinent Lab Results Pertinent Lab Results: Laboratory Tests 01/06/22 01/06/22 01/06/22 11:24 11:24 11:24 WBC 7.5 RBC 4.48 Hgb 12.9 Hct 41.6 MCV 92.9 MCH 28.8 MCHC 31.0 RDW 14.7 Plt Count 496 H MPV 9.2 L Immature Gran % (Auto) 0.5 H Neut % (Auto) 64.9 Lymph % (Auto) 14.4 L [place] % (Auto) 8.0 Eos % (Auto) 11.4 H Baso % (Auto) 0.8 Lymph # (Auto) 1.1 L [place] # (Auto) 0.6 Eos # (Auto) 0.9 H Baso # (Auto) 0.1 Abs Immat Gran (auto) 0.04 H Absolute Neuts (auto) 4.9 Absolute Nucleated RBC 0.000 Nucleated RBC % (auto) 0.0 Smear Tech's Comments Haptoglobin PT INR APTT Sodium Potassium Chloride Carbon Dioxide Anion Gap BUN Creatinine Estim Creat Clear Calc Estimated GFR Random Glucose Fasting Glucose Lactic Acid Lactic Acid F/U @ 2Hr Lactic Acid F/U @ 4Hr Calcium Phosphorus Magnesium Total Bilirubin Direct Bilirubin AST ALT Alkaline Phosphatase Ammonia Lactate Dehydrogenase Troponin I High Sens B-Natriuretic Peptide 22 Total Protein Albumin Lipase Urine Color Urine Appearance Urine pH Ur Specific [place] Urine Protein Urine Glucose (UA) Urine Ketones Urine Blood Urine Nitrite Ur Leukocyte Esterase Urine RBC Urine WBC Ur Squamous Epith Cells Urine Bacteria Stool Occult Blood COVID-19 ([place]) COVID-19 Clin Com Influenza Type A ([facility]) Negative Influenza Type B ([facility]WARD) Negative Influenza A & B Note See Note Blood Type Antibody Screen MARILEE, Polyspecific Positive MARILEE Work-up 01/06/22 01/06/22 01/06/22 11:24 11:24 11:24 WBC RBC Hgb Hct MCV MCH MCHC RDW Plt Count MPV Immature Gran % (Auto) Neut % (Auto) Lymph % (Auto) [place] % (Auto) Eos % (Auto) Baso % (Auto) Lymph # (Auto) [place] # (Auto) Eos # (Auto) Baso # (Auto) Abs Immat Gran (auto) Absolute Neuts (auto) Absolute Nucleated RBC Nucleated RBC % (auto) Smear Tech's Comments Haptoglobin PT INR APTT Sodium 142 Potassium 3.8 Chloride 106 Carbon Dioxide 28 Anion Gap 12 BUN 12 Creatinine 0.86 Estim Creat Clear Calc 82.3 Estimated GFR > 60 Random Glucose 113 Fasting Glucose Lactic Acid 1.4 Lactic Acid F/U @ 2Hr Lactic Acid F/U @ 4Hr Calcium 9.8 Phosphorus Magnesium Total Bilirubin 1.2 H Direct Bilirubin AST 237 H ALT 297 H Alkaline Phosphatase 403 H Ammonia Lactate Dehydrogenase Troponin I High Sens < 3.5 B-Natriuretic Peptide Total Protein 7.2 Albumin 3.9 Lipase 55 Urine Color Urine Appearance Urine pH Ur Specific [place] Urine Protein Urine Glucose (UA) Urine Ketones Urine Blood Urine Nitrite Ur Leukocyte Esterase Urine RBC Urine WBC Ur Squamous Epith Cells Urine Bacteria Stool Occult Blood COVID-19 (OK) COVID-19 Clin Com Influenza Type A ([facility]WARD) Influenza Type B ([facility]WARD) Influenza A & B Note Blood Type Antibody Screen MARILEE, Polyspecific Positive MARILEE Work-up 01/06/22 01/06/22 01/06/22 11:24 11:24 14:27 WBC RBC Hgb Hct MCV MCH MCHC RDW Plt Count MPV Immature Gran % (Auto) Neut % (Auto) Lymph % (Auto) [place] % (Auto) Eos % (Auto) Baso % (Auto) Lymph # (Auto) [place] # (Auto) Eos # (Auto) Baso # (Auto) Abs Immat Gran (auto) Absolute Neuts (auto) Absolute Nucleated RBC Nucleated RBC % (auto) Smear Tech's Comments Haptoglobin PT INR APTT Sodium Potassium Chloride Carbon Dioxide Anion Gap BUN Creatinine Estim Creat Clear Calc Estimated GFR Random Glucose Fasting Glucose Lactic Acid Lactic Acid F/U @ 2Hr Lactic Acid F/U @ 4Hr Calcium Phosphorus Magnesium Total Bilirubin Direct Bilirubin AST ALT Alkaline Phosphatase Ammonia 33 Lactate Dehydrogenase Troponin I High Sens B-Natriuretic Peptide Total Protein Albumin Lipase Urine Color YELLOW Urine Appearance CLEAR Urine pH 6.5 Ur Specific [place] 1.010 Urine Protein NEG Urine Glucose (UA) NEG Urine Ketones NEG Urine Blood 2+ H Urine Nitrite NEG Ur Leukocyte Esterase NEG Urine RBC 1-4 Urine WBC 0-2 Ur Squamous Epith Cells TRACE Urine Bacteria NONE Stool Occult Blood COVID-19 (OK) Negative COVID-19 Clin Com See Note Influenza Type A (EDWARD) Influenza Type B (EDWARD) Influenza A & B Note Blood Type Antibody Screen MARILEE, Polyspecific Positive MARILEE Work-up 01/06/22 01/07/22 01/07/22 21:59 00:23 05:07 WBC 19.1 H RBC 4.19 L Hgb 12.0 Hct 38.5 MCV 91.9 MCH 28.6 MCHC 31.2 RDW 14.9 Plt Count 443 H MPV 9.4 Immature Gran % (Auto) 0.4 Neut % (Auto) 90.9 H Lymph % (Auto) 4.4 L [place] % (Auto) 3.2 Eos % (Auto) 0.8 Baso % (Auto) 0.3 Lymph # (Auto) 0.8 L [place] # (Auto) 0.6 Eos # (Auto) 0.2 Baso # (Auto) 0.1 Abs Immat Gran (auto) 0.08 H Absolute Neuts (auto) 17.4 H Absolute Nucleated RBC 0.000 Nucleated RBC % (auto) 0.0 Smear Tech's Comments VERIFIED Haptoglobin PT INR APTT Sodium Potassium Chloride Carbon Dioxide Anion Gap BUN Creatinine Estim Creat Clear Calc Estimated GFR Random Glucose Fasting Glucose Lactic Acid 2.9 H* Lactic Acid F/U @ 2Hr 2.2 H* Lactic Acid F/U @ 4Hr Calcium Phosphorus Magnesium Total Bilirubin Direct Bilirubin AST ALT Alkaline Phosphatase Ammonia Lactate Dehydrogenase Troponin I High Sens B-Natriuretic Peptide Total Protein Albumin Lipase Urine Color Urine Appearance Urine pH Ur Specific [place] Urine Protein Urine Glucose (UA) Urine Ketones Urine Blood Urine Nitrite Ur Leukocyte Esterase Urine RBC Urine WBC Ur Squamous Epith Cells Urine Bacteria Stool Occult Blood COVID-19 (OK) COVID-19 Clin Com Influenza Type A (EDWARD) Influenza Type B ([facility]WARD) Influenza A & B Note Blood Type Antibody Screen MARILEE, Polyspecific Positive MARILEE Work-up 01/07/22 01/07/22 01/07/22 05:07 05:07 05:07 WBC RBC Hgb Hct MCV MCH MCHC RDW Plt Count MPV Immature Gran % (Auto) Neut % (Auto) Lymph % (Auto) [place] % (Auto) Eos % (Auto) Baso % (Auto) Lymph # (Auto) [place] # (Auto) Eos # (Auto) Baso # (Auto) Abs Immat Gran (auto) Absolute Neuts (auto) Absolute Nucleated RBC Nucleated RBC % (auto) Smear Tech's Comments Haptoglobin PT 15.4 H INR 1.3 H APTT 37.3 Sodium 143 Potassium 3.5 Chloride 113 H Carbon Dioxide 20 L Anion Gap 14 BUN 11 Creatinine 0.78 Estim Creat Clear Calc 75.7 Estimated GFR > 60 Random Glucose Fasting Glucose 200 H Lactic Acid Lactic Acid F/U @ 2Hr Lactic Acid F/U @ 4Hr Calcium 8.0 L D Phosphorus Magnesium Total Bilirubin 1.3 H Direct Bilirubin AST 356 H ALT 340 H Alkaline Phosphatase 368 H Ammonia Lactate Dehydrogenase Troponin I High Sens B-Natriuretic Peptide Total Protein 5.6 L D Albumin 3.1 L D Lipase Urine Color Urine Appearance Urine pH Ur Specific [place] Urine Protein Urine Glucose (UA) Urine Ketones Urine Blood Urine Nitrite Ur Leukocyte Esterase Urine RBC Urine WBC Ur Squamous Epith Cells Urine Bacteria Stool Occult Blood COVID-19 (OK) COVID-19 Clin Com Influenza Type A (EDWARD) Influenza Type B ([facility]WARD) Influenza A & B Note Blood Type Antibody Screen MARILEE, Polyspecific Positive MARILEE Work-up 01/07/22 01/07/22 01/07/22 05:07 20:05 20:05 WBC 15.7 H RBC 4.29 Hgb 12.4 Hct 38.9 MCV 90.7 MCH 28.9 MCHC 31.9 RDW 14.9 Plt Count 400 MPV 9.2 L Immature Gran % (Auto) 0.4 Neut % (Auto) 78.9 H Lymph % (Auto) 8.0 L [place] % (Auto) 4.8 Eos % (Auto) 7.6 H Baso % (Auto) 0.3 Lymph # (Auto) 1.3 [place] # (Auto) 0.8 Eos # (Auto) 1.2 H Baso # (Auto) 0.1 Abs Immat Gran (auto) 0.06 H Absolute Neuts (auto) 12.4 H Absolute Nucleated RBC 0.000 Nucleated RBC % (auto) 0.0 Smear Tech's Comments Haptoglobin PT INR APTT Sodium Potassium Chloride Carbon Dioxide Anion Gap BUN Creatinine Estim Creat Clear Calc Estimated GFR Random Glucose Fasting Glucose Lactic Acid Lactic Acid F/U @ 2Hr Lactic Acid F/U @ 4Hr 1.2 Calcium Phosphorus Magnesium Total Bilirubin 1.3 H Direct Bilirubin 0.9 H AST 302 H ALT 341 H Alkaline Phosphatase 359 H Ammonia Lactate Dehydrogenase Troponin I High Sens B-Natriuretic Peptide Total Protein 5.6 L Albumin 3.0 L Lipase Urine Color Urine Appearance Urine pH Ur Specific [place] Urine Protein Urine Glucose (UA) Urine Ketones Urine Blood Urine Nitrite Ur Leukocyte Esterase Urine RBC Urine WBC Ur Squamous Epith Cells Urine Bacteria Stool Occult Blood COVID-19 (OK) COVID-19 Clin Com Influenza Type A (EDWARD) Influenza Type B ([facility]WARD) Influenza A & B Note Blood Type Antibody Screen MARILEE, Polyspecific Positive MARILEE Work-up 01/08/22 01/08/22 01/08/22 05:20 05:38 05:38 WBC 9.7 RBC 2.98 L D Hgb 8.8 L D Hct 27.2 L D MCV 91.3 MCH 29.5 MCHC 32.4 RDW 14.0 Plt Count 259 D MPV 9.8 Immature Gran % (Auto) 0.6 H Neut % (Auto) 74.5 H Lymph % (Auto) 10.4 L [place] % (Auto) 14.4 H Eos % (Auto) 0.0 Baso % (Auto) 0.1 Lymph # (Auto) 1.0 L [place] # (Auto) 1.4 H Eos # (Auto) 0.0 Baso # (Auto) 0.0 Abs Immat Gran (auto) 0.06 H Absolute Neuts (auto) 7.2 Absolute Nucleated RBC 0.000 Nucleated RBC % (auto) 0.0 Smear Tech's Comments Haptoglobin 146 PT INR APTT Sodium 143 Potassium 3.2 L Chloride 111 H Carbon Dioxide 23 Anion Gap 12 BUN 8 L Creatinine 0.76 Estim Creat Clear Calc 78.5 Estimated GFR > 60 Random Glucose 243 H Fasting Glucose Lactic Acid Lactic Acid F/U @ 2Hr Lactic Acid F/U @ 4Hr Calcium 8.3 L Phosphorus 1.9 L Magnesium 2.1 Total Bilirubin 1.3 H Direct Bilirubin AST 231 H ALT 298 H Alkaline Phosphatase 330 H Ammonia Lactate Dehydrogenase 321 H Troponin I High Sens B-Natriuretic Peptide Total Protein 5.3 L Albumin 2.9 L Lipase Urine Color Urine Appearance Urine pH Ur Specific [place] Urine Protein Urine Glucose (UA) Urine Ketones Urine Blood Urine Nitrite Ur Leukocyte Esterase Urine RBC Urine WBC Ur Squamous Epith Cells Urine Bacteria Stool Occult Blood COVID-19 (OK) COVID-19 Clin Com Influenza Type A ([facility]WARD) Influenza Type B ([facility]WARD) Influenza A & B Note Blood Type Antibody Screen MARILEE, Polyspecific Positive MARILEE Work-up 01/08/22 01/08/22 01/09/22 05:38 18:47 05:25 WBC 13.2 H RBC 4.23 D Hgb 12.1 D Hct 37.9 D MCV 89.6 MCH 28.6 MCHC 31.9 RDW 15.0 Plt Count 313 MPV 9.2 L Immature Gran % (Auto) 0.4 Neut % (Auto) 70.5 Lymph % (Auto) 8.5 L [place] % (Auto) 5.4 Eos % (Auto) 14.7 H Baso % (Auto) 0.5 Lymph # (Auto) 1.1 L [place] # (Auto) 0.7 Eos # (Auto) 2.0 H Baso # (Auto) 0.1 Abs Immat Gran (auto) 0.05 H Absolute Neuts (auto) 9.3 H Absolute Nucleated RBC 0.000 Nucleated RBC % (auto) 0.0 Smear Tech's Comments Haptoglobin PT INR APTT Sodium Potassium Chloride Carbon Dioxide Anion Gap BUN Creatinine Estim Creat Clear Calc Estimated GFR Random Glucose Fasting Glucose Lactic Acid Lactic Acid F/U @ 2Hr Lactic Acid F/U @ 4Hr Calcium Phosphorus Magnesium Total Bilirubin Direct Bilirubin AST ALT Alkaline Phosphatase Ammonia Lactate Dehydrogenase Troponin I High Sens B-Natriuretic Peptide Total Protein Albumin Lipase Urine Color Urine Appearance Urine pH Ur Specific [place] Urine Protein Urine Glucose (UA) Urine Ketones Urine Blood Urine Nitrite Ur Leukocyte Esterase Urine RBC Urine WBC Ur Squamous Epith Cells Urine Bacteria Stool Occult Blood NEGATIVE COVID-19 (OK) COVID-19 Clin Com Influenza Type A ([facility]WARD) Influenza Type B ([facility]) Influenza A & B Note Blood Type Antibody Screen MARILEE, Polyspecific NEGATIVE Positive MARILEE Work-up Not Reportable 01/09/22 01/10/22 01/10/22 05:25 07:23 07:23 WBC 14.2 H RBC 4.08 L Hgb 11.9 L Hct 36.8 L MCV 90.2 MCH 29.2 MCHC 32.3 RDW 14.9 Plt Count 310 MPV 9.4 Immature Gran % (Auto) 0.6 H Neut % (Auto) 80.1 H Lymph % (Auto) 7.8 L [place] % (Auto) 3.6 Eos % (Auto) 7.4 H Baso % (Auto) 0.5 Lymph # (Auto) 1.1 L [place] # (Auto) 0.5 Eos # (Auto) 1.1 H Baso # (Auto) 0.1 Abs Immat Gran (auto) 0.08 H Absolute Neuts (auto) 11.4 H Absolute Nucleated RBC 0.000 Nucleated RBC % (auto) 0.0 Smear Tech's Comments Haptoglobin PT INR APTT Sodium 146 H 142 Potassium 3.5 3.7 Chloride 112 H 108 Carbon Dioxide 27 27 Anion Gap 11 L 11 L BUN 4 L 4 L Creatinine 0.67 0.70 Estim Creat Clear Calc 90.7 85.3 Estimated GFR > 60 > 60 Random Glucose 169 H 165 H Fasting Glucose Lactic Acid Lactic Acid F/U @ 2Hr Lactic Acid F/U @ 4Hr Calcium 8.5 8.5 Phosphorus 2.2 L Magnesium 2.3 Total Bilirubin 1.6 H 1.4 H Direct Bilirubin AST 209 H 175 H ALT 263 H 222 H Alkaline Phosphatase 316 H 320 H Ammonia Lactate Dehydrogenase Troponin I High Sens B-Natriuretic Peptide Total Protein 5.2 L 5.1 L Albumin 2.9 L 2.8 L Lipase Urine Color Urine Appearance Urine pH Ur Specific [place] Urine Protein Urine Glucose (UA) Urine Ketones Urine Blood Urine Nitrite Ur Leukocyte Esterase Urine RBC Urine WBC Ur Squamous Epith Cells Urine Bacteria Stool Occult Blood COVID-19 (OK) COVID-19 Clin Com Influenza Type A ([facility]WARD) Influenza Type B ([facility]) Influenza A & B Note Blood Type Antibody Screen MARILEE, Polyspecific Positive MARILEE Work-up 01/10/22 01/11/22 01/11/22 19:30 05:17 05:17 WBC 8.8 RBC 3.64 L Hgb 10.6 L Hct 33.3 L MCV 91.5 MCH 29.1 MCHC 31.8 RDW 14.9 Plt Count 257 MPV 9.5 Immature Gran % (Auto) 0.2 Neut % (Auto) 67.6 Lymph % (Auto) 13.5 L [place] % (Auto) 6.8 Eos % (Auto) 11.4 H Baso % (Auto) 0.5 Lymph # (Auto) 1.2 [place] # (Auto) 0.6 Eos # (Auto) 1.0 H Baso # (Auto) 0.0 Abs Immat Gran (auto) 0.02 Absolute Neuts (auto) 6.0 Absolute Nucleated RBC 0.000 Nucleated RBC % (auto) 0.0 Smear Tech's Comments Haptoglobin PT INR APTT Sodium 141 143 Potassium 4.5 D 3.9 Chloride 111 H 110 H Carbon Dioxide 23 26 Anion Gap 12 11 L BUN 4 L 5 L Creatinine 0.63 0.64 Estim Creat Clear Calc 94.7 93.2 Estimated GFR > 60 > 60 Random Glucose 132 H 132 H Fasting Glucose Lactic Acid Lactic Acid F/U @ 2Hr Lactic Acid F/U @ 4Hr Calcium 8.1 L 8.8 D Phosphorus 2.2 L 2.7 Magnesium 2.3 2.3 Total Bilirubin 2.0 H Direct Bilirubin 1.2 H AST 130 H ALT 148 H Alkaline Phosphatase 241 H D Ammonia Lactate Dehydrogenase Troponin I High Sens B-Natriuretic Peptide Total Protein 5.1 L Albumin 3.2 L Lipase Urine Color Urine Appearance Urine pH Ur Specific [place] Urine Protein Urine Glucose (UA) Urine Ketones Urine Blood Urine Nitrite Ur Leukocyte Esterase Urine RBC Urine WBC Ur Squamous Epith Cells Urine Bacteria Stool Occult Blood COVID-19 (OK) COVID-19 Clin Com Influenza Type A ([facility]WARD) Influenza Type B ([facility]WARD) Influenza A & B Note Blood Type Antibody Screen MARILEE, Polyspecific Positive MARILEE Work-up 01/12/22 01/12/22 01/13/22 06:41 06:41 05:47 WBC 6.8 7.7 RBC 3.26 L 3.60 L Hgb 9.4 L 10.4 L Hct 30.0 L 33.0 L MCV 92.0 91.7 MCH 28.8 28.9 MCHC 31.3 31.5 RDW 15.2 14.8 Plt Count 242 273 MPV 9.6 9.7 Immature Gran % (Auto) 0.4 0.5 H Neut % (Auto) 61.2 66.3 Lymph % (Auto) 18.5 L 12.2 L [place] % (Auto) 6.3 6.4 Eos % (Auto) 12.9 H 13.9 H Baso % (Auto) 0.7 0.7 Lymph # (Auto) 1.3 0.9 L [place] # (Auto) 0.4 0.5 Eos # (Auto) 0.9 H 1.1 H Baso # (Auto) 0.1 0.1 Abs Immat Gran (auto) 0.03 0.04 H Absolute Neuts (auto) 4.2 5.1 Absolute Nucleated RBC 0.000 0.000 Nucleated RBC % (auto) 0.0 0.0 Smear Tech's Comments Haptoglobin PT INR APTT Sodium 143 Potassium 3.6 Chloride 111 H Carbon Dioxide 24 Anion Gap 12 BUN 10 D Creatinine 0.74 Estim Creat Clear Calc 80.6 Estimated GFR > 60 Random Glucose 129 H Fasting Glucose Lactic Acid Lactic Acid F/U @ 2Hr Lactic Acid F/U @ 4Hr Calcium 9.0 Phosphorus 2.7 Magnesium 2.4 Total Bilirubin 1.2 H Direct Bilirubin AST 133 H ALT 116 H Alkaline Phosphatase 197 H Ammonia Lactate Dehydrogenase Troponin I High Sens B-Natriuretic Peptide Total Protein 5.6 L Albumin 3.9 D Lipase Urine Color Urine Appearance Urine pH Ur Specific [place] Urine Protein Urine Glucose (UA) Urine Ketones Urine Blood Urine Nitrite Ur Leukocyte Esterase Urine RBC Urine WBC Ur Squamous Epith Cells Urine Bacteria Stool Occult Blood COVID-19 (OK) COVID-19 Clin Com Influenza Type A ([facility]WARD) Influenza Type B (EDWARD) Influenza A & B Note Blood Type Antibody Screen MARILEE, Polyspecific Positive MARILEE Work-up 01/13/22 01/14/22 01/14/22 05:47 06:25 06:27 WBC 9.5 RBC 4.24 Hgb 12.3 Hct 38.7 MCV 91.3 MCH 29.0 MCHC 31.8 RDW 15.2 Plt Count 335 MPV 10.0 Immature Gran % (Auto) 0.4 Neut % (Auto) 70.7 Lymph % (Auto) 15.2 L [place] % (Auto) 5.1 Eos % (Auto) 8.1 H Baso % (Auto) 0.5 Lymph # (Auto) 1.4 [place] # (Auto) 0.5 Eos # (Auto) 0.8 H Baso # (Auto) 0.1 Abs Immat Gran (auto) 0.04 H Absolute Neuts (auto) 6.7 Absolute Nucleated RBC 0.000 Nucleated RBC % (auto) 0.0 Smear Tech's Comments Haptoglobin PT INR APTT Sodium 143 148 H Potassium 3.4 4.0 Chloride 110 H 106 Carbon Dioxide 22 27 Anion Gap 14 19 BUN 7 L 11 D Creatinine 0.71 0.78 Estim Creat Clear Calc 84.1 76.5 Estimated GFR > 60 > 60 Random Glucose Fasting Glucose 135 H 123 H Lactic Acid Lactic Acid F/U @ 2Hr Lactic Acid F/U @ 4Hr Calcium 9.1 9.6 Phosphorus Magnesium Total Bilirubin 1.1 H 1.7 H Direct Bilirubin AST 179 H 233 H ALT 131 H 174 H Alkaline Phosphatase 239 H D 333 H D Ammonia Lactate Dehydrogenase Troponin I High Sens B-Natriuretic Peptide Total Protein 5.7 L 6.7 Albumin 3.7 4.1 Lipase Urine Color Urine Appearance Urine pH Ur Specific [place] Urine Protein Urine Glucose (UA) Urine Ketones Urine Blood Urine Nitrite Ur Leukocyte Esterase Urine RBC Urine WBC Ur Squamous Epith Cells Urine Bacteria Stool Occult Blood COVID-19 (OK) COVID-19 Clin Com Influenza Type A ([facility]WARD) Influenza Type B ([facility]WARD) Influenza A & B Note Blood Type Antibody Screen MARILEE, Polyspecific Positive MARILEE Work-up 01/14/22 06:27 WBC RBC Hgb Hct MCV MCH MCHC RDW Plt Count MPV Immature Gran % (Auto) Neut % (Auto) Lymph % (Auto) [place] % (Auto) Eos % (Auto) Baso % (Auto) Lymph # (Auto) [place] # (Auto) Eos # (Auto) Baso # (Auto) Abs Immat Gran (auto) Absolute Neuts (auto) Absolute Nucleated RBC Nucleated RBC % (auto) Smear Tech's Comments Haptoglobin PT INR APTT Sodium Potassium Chloride Carbon Dioxide Anion Gap BUN Creatinine Estim Creat Clear Calc Estimated GFR Random Glucose Fasting Glucose Lactic Acid Lactic Acid F/U @ 2Hr Lactic Acid F/U @ 4Hr Calcium Phosphorus Magnesium Total Bilirubin Direct Bilirubin AST ALT Alkaline Phosphatase Ammonia Lactate Dehydrogenase Troponin I High Sens B-Natriuretic Peptide Total Protein Albumin Lipase Urine Color Urine Appearance Urine pH Ur Specific [place] Urine Protein Urine Glucose (UA) Urine Ketones Urine Blood Urine Nitrite Ur Leukocyte Esterase Urine RBC Urine WBC Ur Squamous Epith Cells Urine Bacteria Stool Occult Blood COVID-19 (OK) COVID-19 Clin Com Influenza Type A ([facility]WARD) Influenza Type B ([facility]WARD) Influenza A & B Note Blood Type A Positive Antibody Screen NEGATIVE MARILEE, Polyspecific Positive MARILEE Work-up Airway Mallampati Class: III TM Dist: >3cm Neck ROM: Full Loose/Missing/Broken Teeth: Yes (chipped front teeth and poor dentation ) Heart: S1, S2 Lungs: b/l breath sounds Assessment and Plan Assessment Anesthesia Assessment: Anesthesia Plan Discussed and Chart Reviewed Final Anesthetic Review Family History of Problems with Anesthesia: No History of Problems with Anesthesia: No ASA Class: III Final Preanesthetic Review: No Changes in Pt Med Stat, Meds/Allgs Chart Reviewed, Consent Obtained/Reviewed, Anes Risks/Benef Reviewed and DNR Form (If Appl.) Patient Risk: High Procedure Risk: High Anesthetic Plan Anesthetic Plan: GA Disposition: Inp. Admit - Standard Bed
--- NOTE | 2022-01-14 09:26 | P.EN_ITS ---
Event Note Date of Service: 01/14/22 Event Note: No further events overnight LFTs little higher than yesterday - discussed with hospitalist Had a long discussion again with Mary, patient's sister Reviewed planned procedure of repair of the large epigastric hernia(from previous gastostromy tube) laparoscopic cholecystectomy open Explained the risks including but not limited to bleeding infections, injury to other organs including bowel, liver, bile duct, inherent to anesthesia like perioperative [place], stroke, pneumonia as well as the benefits and alternatives. Case has been reviewed many times with evaluation specialist as well as hospitalist service -it was deemed that her says last week was likely due to the gallbladder The family understands her higher perioperative risks in view of her baseline level of health with her TBI
--- NOTE | 2022-01-14 11:43 | W.PM.OPN ---
Operative Note Operative Note Date of Service: 01/14/22 Narrative: Preop diagnosis: Gallstones, recent sepsis, question cholecystitis, elevated LFTs Incisional hernia from previous gastrostomy tube Postop diagnosis: The same Procedure: Repair of incisional hernia, with extensive lysis of adhesions Laparoscopic cholecystectomy Surgeon: Dariel Pollard MD equal opportunity assistant: HARIKA Molina Findings: Large herniated stomach, with has adhesions to the fascia and subcutaneous layer; the gallbladder did not appear inflamed although a little bit edematous. The liver did not appear cirrhotic. Patient is a 62-year-old female with known gallstones and abnormal LFTs, who was admitted last week because of clinical sepsis. She was admitted to the give care unit at that time. The director of hemophilia had suspected the gallbladder to be the source of her sepsis especially on the background of abnormal LFTs. A cholecystostomy tube was therefore placed by IR. This showed bilious fluid without pus. She had persistent mild elevation of her LFTs. The medical service had recommended going ahead with cholecystectomy and this had been discussed with the family. The patient had a large incisional hernia from previous gastrostomy tube on the upper abdomen just to the left of the midline. The sister Mary had given consent for repair of this incisional hernia and laparoscopic cholecystectomy. She understood that the repair of the hernia was necessary to be able to achieve visualization for laparoscopy. The patient was brought to the operating room and placed supine on the table under general anesthesia via endotracheal tube. A He catheter was inserted. The abdomen was prepped and draped usual sterile fashion. A surgical time-out was done. cholecystostomy tube was trimmed. I made a longitudinal incision on the previous gastrostomy scar on the upper the abdomen just to the left of the midline using a blade 15. This was carried down through the full-thickness skin. I then used Metzenbaum scissors to dissect through the subcutaneous fat as the CT scan had shown the anterior wall of the herniated stomach immediately under the level of the skin. I continued to do sharp dissection with the Metzenbaum scissors until I was able to visualize the stomach wall. I gently the stomach wall from the rest of the subcutaneous layer. This was done with Metzenbaum scissors. The stomach was densely adherent to the subcutaneous layer as well as the fascial edges so we had a difficult time this. We had to proceed slowly with gentle dissection with Metzenbaum scissors to separate the stomach wall from the rest of the fascia and subcutaneous layer so this part of the procedure took an extended period of time. We had to apply a [place] clamp to the fascial edges periodically to allow traction and counter traction as we continued to define the fascial edge circumferentially and red this this from the rest of herniated wall of the stomach. We were careful not to create any injuries on the stomach wall. Eventually, I was able able to completely separate the entire stomach from the fascial defect and this was completely reduced. I cleared up the fascial margins to make sure that we had good margins for placement of suture for fascial closure. The fascial edges came together without tension. I decided against using a mesh in view of the possibility of the gallbladder being infected. The defect was about 6 cm long. I closed the fascial defect with a running Prolene 1 stitch. We then proceeded to do the laparoscopic cholecystectomy part. I made a short incision on the supraumbilical margin using blade 15 and this was carried down through the full-thickness skin and subcutaneous fat with blunt dissection. I entered the peritoneum. I was able to position the Mindy port through this. We then proceeded to insufflate to a pressure of 15 mmHg. From here on the rest of this part of the procedure was done under vision with the laparoscope. We used a 10 mm laparoscope. With laparoscopic visualization I placed a 5/12 mm port in the epigastric area below the subcostal margin via a stab incision. Two 5 mm ports introduced through small incisions below the subcostal margin along the anterior axillary line and the midclavicular line. Graspers were placed through these working ports. The patient was placed in a head-up and [id number] position. The gallbladder was seen and this did not appear to be inflamed. The wall was supple. There did seem to a little bit of edema especially where the cholecystostomy drain was going into. We pulled out this drain. I applied graspers on the fundus of the gallbladder and this was used to retract the gallbladder cephalad. Another grasper was placed towards the pouch of the gallbladder near the neck. This was used to retract the gallbladder laterally. At this point therefore the gallbladder was being retracted in cephalad and lateral fashion to put the area of the cystic duct on stretch. I gently dissected the neck of the gallbladder by carefully teasing off its peritoneum and fibroareolar tissue using the [place] dissector. By doing so I was able to visualize the cystic duct. I gently dissected the cystic duct with the [place] dissector and by doing so I was able to achieve a critical view of the hepatocystic triangle. There were no other tubular structure seen in this area except for what appeared the cystic artery. I was able to confirm the confluence of the cystic duct with the neck of the gallbladder. Onve this was done, I applied clips with 2 clips being applied distally. The cystic duct was transected between clips with Endo scissors I applied clips on the cystic artery and this was also transected between clips with Endo scissors. With traction on the gallbladder wall away from the liver bed I proceeded to then continue to gently dissect the thickened hilum with the [place] dissector. Small fibrous bands were also transected been clips to make sure that there was no bleeding. I was able to reach the interface of the gallbladder and the liver bed. I used the electrocautery spatula to incise the peritoneum. I then proceeded to define a plane of dissection between the gallbladder wall and the liver bed using combination of dissection with the tip of the spatula and electrocautery to separate the gallbladder along this plane. I proceeded with this dissection gently all the way to the fundus until the entire gallbladder was completely . The gallbladder was retrieved through an endobag through the umbilical incision. I reinserted all ports and re-insufflated. I examined the subhepatic space and this was noted to be dry without any bleeding or any bile leak . I examined the stomach wall as well laparoscopically and this appeared to be intact although a little erythematous from the earlier dissection. There was note of some adhesions in the lower part of the abdomen to the left. However, rest of the laparoscopic examination did not reveal any other pathology. Once hemostasis had been confirmed, I desufflated through the port sites. I removed all ports under vision with the laparoscope. The umbilical port was removed last. The fascia of the umbilical incision was closed with a [id number] Dexon 0 stitch. Skin closure was achieved on all skin incisions using skin nilesh. All incisions were infiltrated with Marcaine 0.5% for postop analgesia. Dressings were applied. The procedure was completed. The patient tolerated the procedure well. There were no immediate complications noted. Initial and final counts of sponges and instruments were correct. Estimated blood loss about 25 cc. The patient was extubated without difficulty and transferred to the recovery room with stable vital signs.
--- NOTE | 2022-01-14 11:56 | P.BOP_ITS ---
Brief Operative Note Date of Service: 01/14/22 <Marie Molina PA-C - Last Filed: 01/14/22 11:59> Pre-op diagnosis: cholecystitis, epigastric hernia <Marie Molina PA-C - Last Filed: 01/14/22 11:59> Post-op diagnosis: same <Marie Molina PA-C - Last Filed: 01/14/22 11:59> Procedure: open repair of epigastric hernia, lysis of adhesions, laparoscopic cholecystectomy <Marie Molina PA-C - Last Filed: 01/14/22 11:59> Surgeon: RAYMUNDO GUNN MD <Marie Molina PA-C - Last Filed: 01/14/22 11:59> Anesthesia: GETA <Marie Molina PA-C - Last Filed: 01/14/22 11:59> Was an Injection Mold Tooling Technician used for this Procedure?: Yes <Marie Molina PA-C - Last Filed: 01/14/22 11:59> No <Raymundo Gunn MD - Last Filed: 01/14/22 11:59> Injection Mold Tooling Technician: Marie Molina <Marie Molina PA-C - Last Filed: 01/14/22 11:59> Estimated blood loss (mL): 25 <LANDON Shankar Last Filed: 01/14/22 11:59> IV fluids (mL): 1,100 <Marie Molina PA-C - Last Filed: 01/14/22 11:59> Urine output (mL): 150 <LANDON Shankar Last Filed: 01/14/22 11:59> Pathology: other (gallbladder) <Marie Molina PA-C - Last Filed: 01/14/22 11:59> Condition: stable <LANDON Shankar Last Filed: 01/14/22 11:59> Disposition: PACU <LANDON Shankar Last Filed: 01/14/22 11:59>
--- NOTE | 2022-01-14 13:34 | PM.EVENT ---
Event Note Date of Service: 01/14/22 Event Note: seen postop seems to have adequate pain control stable VS dressings dry urine output appears concentrated clear liquid diet pain mgt sister Mary updated GB did not appear acutely inflamed intraop, but with large GB stones
[2022-01-14] MEDS: Lactated Ringers 1,000 ML 80 ML IVCONT (14:15)
--- NOTE | 2022-01-14 16:29 | P.PNIM_ITS ---
Subjective Subjective Date of Service: 01/14/22 Interval History: No acute issues overnight, NPO for cholecystectomy. Review of Systems Review of Systems: Yes Unobtainable due to mental status Physical Exam Vital Signs: Vital Signs: Last Vital Signs Temp 98.2 F 01/14/22 16:14 Pulse 91 01/14/22 16:14 Resp 8 L 01/14/22 16:14 BP 115/54 L 01/14/22 16:14 Pulse Ox 94 01/14/22 16:14 Oxygen Flow Rate 7 01/07/22 17:41 BMI result Body Mass Index 27.3 Const: Other: General? no acute distress.? Neck? supple no JVD. CVS? regular rate rhythm, Respiratory lungs clear to auscultation, no respiratory distress, no wheeze, no rhonchi. Gastrointestinal abdomen soft, nontender, bowel sounds audible, no guarding , cholecystostomy tube with serosanguineous drainage Extremities no edema. Neuro nonfocal, moving all 4 extremity speech clear. Skin no rash Objective Data Active Medications Acetaminophen (Acetaminophen 325 Mg Tablet) 650 mg PO Q6H PRN PRN Reason: Pain, Mild (Pain Scale 1-3) Last Admin: 01/09/22 20:16 Dose: 650 mg Documented by: AMARJIT Calcium Carbonate (Calcium Carbonate 750 Mg Tab.Chew) 750 mg PO Q8H PRN PRN Reason: Heartburn Clozapine (Clozapine 100 Mg Tablet) 100 mg PO BEDTIME [facility] Last Admin: 01/13/22 22:17 Dose: 100 mg Documented by: EUSEBIO Famotidine (Famotidine 20 Mg Tablet) 40 mg PO DAILY [facility] Last Admin: 01/14/22 13:59 Dose: Not Given Documented by: ADINA Non-Admin Reason: Off Unit: Surgery Fentanyl (Fentanyl Citrate/Pf 100 Mcg/2 Ml Vial) 25 mcg IVPUSH Q5M PRN; Protocol PRN Reason: Pain, Moderate (Pain Scale 4-6 Haloperidol Lactate (Haloperidol Lactate 5 Mg/Ml Vial) 2 mg IVPUSH Q4H PRN PRN Reason: agitation Heparin Sodium (Porcine) (Heparin Sodium,Porcine 5,000 Unit/Ml Vial) 5,000 unit SUBCUT Q8H [facility] Last Admin: 01/14/22 13:59 Dose: Not Given Documented by: ADINA Non-Admin Reason: Off Unit: Surgery Hydromorphone HCl (Hydromorphone Hcl 0.5 Mg/0.5 Ml Syringe) 0.25 mg IVPUSH Q5M PRN; Protocol PRN Reason: Pain, Severe (Pain Scale 7-10) Lactated Ringer's (Lr) 1,000 mls @ 80 mls/hr IVCONT .[id number] [facility] Last Admin: 01/14/22 14:15 Dose: 80 mls/hr Documented by: NELLIE Lamotrigine (Lamotrigine 100 Mg Tablet) 150 mg PO BID [facility] Last Admin: 01/14/22 13:59 Dose: Not Given Documented by: ADINA Non-Admin Reason: Off Unit: Surgery Ondansetron HCl (Ondansetron Hcl 4 Mg/2 Ml Vial) 4 mg IVPUSH Q4H PRN PRN Reason: Nausea Last Admin: 01/13/22 18:30 Dose: 4 mg Documented by: MARÍA Ondansetron HCl (Ondansetron Hcl 4 Mg/2 Ml Vial) 4 mg IVPUSH ONCE PRN PRN Reason: Nausea and Vomiting Sodium Chloride (0.9 % Sodium Chloride Flush 3 Ml Syringe) 3 ml IVFLUSH QSHIFT [facility] Last Admin: 01/14/22 13:59 Dose: Not Given Documented by: ADINA Non-Admin Reason: Off Unit: Surgery Sodium Chloride (Sodium Chloride 0.65 % Nasal 44 Ml Sprbtl) 1 spray NOSTRIL-B Q8H PRN PRN Reason: Nasal Congestion Labs CBC & Chem 7: 01/14/22 06:27 01/14/22 06:25 Labs: Laboratory Results - last 24 hr 01/14/22 01/14/22 01/14/22 06:25 06:27 06:27 MCV 91.3 MCH 29.0 MCHC 31.8 RDW 15.2 Plt Count 335 MPV 10.0 Immature Gran % (Auto) 0.4 Neut % (Auto) 70.7 Lymph % (Auto) 15.2 L [place] % (Auto) 5.1 Eos % (Auto) 8.1 H Baso % (Auto) 0.5 Lymph # (Auto) 1.4 [place] # (Auto) 0.5 Eos # (Auto) 0.8 H Baso # (Auto) 0.1 Abs Immat Gran (auto) 0.04 H Absolute Neuts (auto) 6.7 Absolute Nucleated RBC 0.000 Nucleated RBC % (auto) 0.0 Anion Gap 19 Estim Creat Clear Calc 76.5 Estimated GFR > 60 Fasting Glucose 123 H Calcium 9.6 Total Bilirubin 1.7 H AST 233 H ALT 174 H Alkaline Phosphatase 333 H D Total Protein 6.7 Albumin 4.1 Blood Type A Positive Antibody Screen NEGATIVE Assessment and Plan (1) Biliary calculus with obstruction without cholecystitis: Status: Acute (2) Abnormal LFTs: Status: Acute Plan 62-year-old lady with underlying history of TBI, dementia, delusional disorder, resident of [facility], with recent admission to [facility] on 12/22/2021 through 01/05/2022 for pneumonia also evaluated, by General surgery, for impacted cystic stone and treated conservatively. Discharged on 01/05/2022, readmitted on 01/06/2022 ,status post cholecystostomy on 01/07/2022. Hospital course significant for septic shock requiring initiation of pressor support and transferred to the intensive care unit. Evaluated by General surgery and being planned for cholecystectomy. 1. Biliary calculus with obstruction without cholecystitis - WBC normalized, no fever since admission, normal H&H -LFTs worsened from before, question related to medications like Zosyn/Pepcid or related to obstruction , follow LFTs at a.m. -[facility] and epigastric hernia repair planned for today 2.TBI/ dementia unspecified -continue Clozaril/Lamictal and as needed Haldol Full code DVT prophylaxis on Lovenox need continued inpatient hospitalization since undergoing cholecystectomy and hernia repair today. Quality Stroke Does the patient have a stroke diagnosis?: No VTE Prior VTE?: No VTE Risk Level:: Medical - moderate - high VTE Device Contraindication: Treatment Not Indicated VTE Drug Contraindication: N/A - Med Ordered
[2022-01-14] MEDS: cloZAPine 100 MG TABLET PO (22:37)
[2022-01-14] MEDS: lamoTRIgine 100 MG TABLET 150 MG PO (22:37)
[2022-01-14] MEDS: 0.9 % Sodium Chloride Flush 3 ML SYRINGE IVFLUSH (22:37)
[2022-01-15] MEDS: Lactated Ringers 1,000 ML 80 ML IVCONT ×2 (01:45→14:06)
[2022-01-15 03:33] VITALS: BP 106/60; PULSE 75; RESP 19; TEMP 36.1; O2SAT 92
[2022-01-15 07:20] LABS: MANUAL DIFF FLAG NO
[2022-01-15 07:27] LABS: Basophils Percent Auto 0.1 % (0-2); Hematocrit 34.7 % (37.0-47.0); Hemoglobin 10.9 g/dl (12.0-16.0); Imm Gran Abs Auto 0.04 X10*3/uL (0.00-0.03); Imm Gran Pct Auto 0.5 % (0.0-0.4); Lymphocytes Percent Auto 11.4 % (20-40); Mean Corpuscular HGB Conc 31.4 g/dl (31.0-35.0); Mean Corpuscular Volume 92.3 fL (80.0-98.0); Mean Platelet Volume 9.9 fL (9.4-12.3); Monocytes Absolute Auto 0.6 X10*3/uL (0.1-1.2); Monocytes Percent Auto 6.8 % (2-11); Neutrophils Percent Auto 81.2 % (45-73); Platelet Count 329 X10*3/uL (160-400); Red Blood Count 3.76 X10*6/uL (4.20-5.50); Red Cell Distribution Width 14.9 % (11.0-16.0); White Blood Count 8.6 X10*3/uL (4.8-10.8)
[2022-01-15 07:49] VITALS: BP 111/55; PULSE 73; RESP 20; TEMP 36.4; O2SAT 92
[2022-01-15 07:50] LABS: Anion Gap 12 (12-20); Blood Urea Nitrogen 15 mg/dL (9-16); Calcium 9.3 mg/dL (8.4-10.2); Carbon Dioxide 29 mmol/L (22-29); Chloride 107 mmol/L (96-108); Creatinine Clr Calc Pharmacy 89.1; Estimated Glomerular Filt Rate > 60; Glucose Fasting 123 mg/dL (60-99); Potassium 3.8 mmol/L (3.3-5.1); Sodium 144 mmol/L (135-145)
[2022-01-15 07:51] LABS: Alanine Aminotransferase 154 U/L (0-31); Albumin Level 3.5 g/dL (3.5-5.0); Alkaline Phosphatase 289 U/L (39-117); Aspartate Amino Transferase 207 U/L (5-31); Bilirubin Direct 0.6 mg/dL (0.0-0.5); Bilirubin Total 0.7 mg/dL (0.0-1.0); Total Protein 5.8 g/dL (6.5-8.0)
--- NOTE | 2022-01-15 07:51 | P.PNGS_ITS ---
Subjective Subjective Date of Service: 01/15/22 Interval history: Has been drowsy since postop yesterday Says she is ?sore? Physical Exam 2 Vital Signs: Vital Signs: Last Vital Signs Temp 97.0 F 01/15/22 03:33 Pulse 75 01/15/22 03:33 Resp 19 01/15/22 03:33 BP 106/60 01/15/22 03:33 Pulse Ox 92 01/15/22 03:33 Oxygen Flow Rate 7 01/07/22 17:41 BMI result Body Mass Index 27.3 Const: Other: On O2 by mask, answers simple question Resp: Other: On O2 by mask Effort & Inspection: normal respiratory effort Cardio: Rate: regular rate GI: Other: Soft, dressings dry, no guarding or rebound Objective Data Active Medications Acetaminophen (Acetaminophen 325 Mg Tablet) 650 mg PO Q6H PRN PRN Reason: Pain, Mild (Pain Scale 1-3) Last Admin: 01/09/22 20:16 Dose: 650 mg Documented by: AMARJIT Calcium Carbonate (Calcium Carbonate 750 Mg Tab.Chew) 750 mg PO Q8H PRN PRN Reason: Heartburn Clozapine (Clozapine 100 Mg Tablet) 100 mg PO BEDTIME [facility] Last Admin: 01/14/22 22:37 Dose: 100 mg Documented by: EUSEBIO Famotidine (Famotidine 20 Mg Tablet) 40 mg PO DAILY [facility] Last Admin: 01/14/22 13:59 Dose: Not Given Documented by: ADINA Non-Admin Reason: Off Unit: Surgery Haloperidol Lactate (Haloperidol Lactate 5 Mg/Ml Vial) 2 mg IVPUSH Q4H PRN PRN Reason: agitation Heparin Sodium (Porcine) (Heparin Sodium,Porcine 5,000 Unit/Ml Vial) 5,000 unit SUBCUT Q8H [facility] Last Admin: 01/15/22 04:38 Dose: Not Given Documented by: EUSEBIO Non-Admin Reason: Physician Held Med Lactated Ringer's (Lr) 1,000 mls @ 80 mls/hr IVCONT .[id number] [facility] Last Admin: 01/15/22 01:45 Dose: 80 mls/hr Documented by: EUSEBIO Lamotrigine (Lamotrigine 100 Mg Tablet) 150 mg PO BID [facility] Last Admin: 01/14/22 22:37 Dose: 150 mg Documented by: EUSEBIO Morphine Sulfate (Morphine Sulfate 2 Mg/Ml Cartridge) 2 mg IVPUSH Q3H PRN; Protocol PRN Reason: Pain, Severe (Pain Scale 7-10) Ondansetron HCl (Ondansetron Hcl 4 Mg/2 Ml Vial) 4 mg IVPUSH Q4H PRN PRN Reason: Nausea Last Admin: 01/13/22 18:30 Dose: 4 mg Documented by: MARÍA Oxycodone HCl (Oxycodone Hcl Immed Release 5 Mg Tablet) 5 mg PO Q4H PRN PRN Reason: Pain, Moderate (Pain Scale 4-6 Sodium Chloride (0.9 % Sodium Chloride Flush 3 Ml Syringe) 3 ml IVFLUSH QSHIFT [facility] Last Admin: 01/14/22 22:37 Dose: 3 ml Documented by: EUSEBIO Sodium Chloride (Sodium Chloride 0.65 % Nasal 44 Ml Sprbtl) 1 spray NOSTRIL-B Q8H PRN PRN Reason: Nasal Congestion Labs CBC & Chem 7: 01/15/22 06:59 01/15/22 06:59 Labs: Laboratory Results - last 24 hr 01/14/22 01/15/22 01/15/22 06:27 06:59 06:59 MCV 92.3 MCH 29.0 MCHC 31.4 RDW 14.9 Plt Count 329 MPV 9.9 Immature Gran % (Auto) 0.5 H Neut % (Auto) 81.2 H Lymph % (Auto) 11.4 L [place] % (Auto) 6.8 Eos % (Auto) 0.0 Baso % (Auto) 0.1 Lymph # (Auto) 1.0 L [place] # (Auto) 0.6 Eos # (Auto) 0.0 Baso # (Auto) 0.0 Abs Immat Gran (auto) 0.04 H Absolute Neuts (auto) 7.0 Absolute Nucleated RBC 0.000 Nucleated RBC % (auto) 0.0 Anion Gap 12 Estim Creat Clear Calc 89.1 Estimated GFR > 60 Random Glucose TNP Fasting Glucose 123 H Calcium 9.3 Total Bilirubin 0.7 Direct Bilirubin 0.6 H AST 207 H ALT 154 H Alkaline Phosphatase 289 H Total Protein 5.8 L Albumin 3.5 Blood Type A Positive Antibody Screen NEGATIVE Procedures Date of Service Date of Service: 01/15/22 Progress Note: A&P Assessment and plan (1) Biliary calculus with obstruction without cholecystitis: Status: Acute Assessment and Plan: Status post repair of large incisional hernia, status post laparoscopic cholecystectomy Has been drowsy seen postop On Venturi mask because of relatively low O2 sats Otherwise appears comfortable Pain management Wound care with dry dressing changes starting tomorrow Okay to DC He Advance diet today as tolerated Fall Risk Details Current Medications: Current Medications Acetaminophen (Acetaminophen 325 Mg Tablet) 650 mg PO Q6H PRN PRN Reason: Pain, Mild (Pain Scale 1-3) Last Admin: 01/09/22 20:16 Dose: 650 mg Documented by: Calcium Carbonate (Calcium Carbonate 750 Mg Tab.Chew) 750 mg PO Q8H PRN PRN Reason: Heartburn Clozapine (Clozapine 100 Mg Tablet) 100 mg PO BEDTIME [facility] Last Admin: 01/14/22 22:37 Dose: 100 mg Documented by: Famotidine (Famotidine 20 Mg Tablet) 40 mg PO DAILY [facility] Last Admin: 01/14/22 13:59 Dose: Not Given Documented by: Haloperidol Lactate (Haloperidol Lactate 5 Mg/Ml Vial) 2 mg IVPUSH Q4H PRN PRN Reason: agitation Heparin Sodium (Porcine) (Heparin Sodium,Porcine 5,000 Unit/Ml Vial) 5,000 unit SUBCUT Q8H [facility] Last Admin: 01/15/22 04:38 Dose: Not Given Documented by: Lactated Ringer's (Lr) 1,000 mls @ 80 mls/hr IVCONT .[id number] [facility] Last Admin: 01/15/22 01:45 Dose: 80 mls/hr Documented by: Lamotrigine (Lamotrigine 100 Mg Tablet) 150 mg PO BID [facility] Last Admin: 01/14/22 22:37 Dose: 150 mg Documented by: Morphine Sulfate (Morphine Sulfate 2 Mg/Ml Cartridge) 2 mg IVPUSH Q3H PRN; Protocol PRN Reason: Pain, Severe (Pain Scale 7-10) Ondansetron HCl (Ondansetron Hcl 4 Mg/2 Ml Vial) 4 mg IVPUSH Q4H PRN PRN Reason: Nausea Last Admin: 01/13/22 18:30 Dose: 4 mg Documented by: Oxycodone HCl (Oxycodone Hcl Immed Release 5 Mg Tablet) 5 mg PO Q4H PRN PRN Reason: Pain, Moderate (Pain Scale 4-6 Sodium Chloride (0.9 % Sodium Chloride Flush 3 Ml Syringe) 3 ml IVFLUSH QSHIFT [facility] Last Admin: 01/14/22 22:37 Dose: 3 ml Documented by: Sodium Chloride (Sodium Chloride 0.65 % Nasal 44 Ml Sprbtl) 1 spray NOSTRIL-B Q8H PRN PRN Reason: Nasal Congestion Time Spent With Patient Time: Total time spent is greater than 50% in coordination of care (as documented) at patient's floor/unit and/or counseling patient: Quality Stroke Does the patient have a stroke diagnosis?: No VTE Prior VTE?: No VTE Risk Level:: Medical - moderate - high VTE Device Contraindication: Treatment Not Indicated VTE Drug Contraindication: N/A - Med Ordered
[2022-01-15] MEDS: lamoTRIgine 100 MG TABLET 150 MG PO ×2 (08:05→20:52)
[2022-01-15] MEDS: Famotidine 20 MG TABLET 40 MG PO (08:06)
[2022-01-15] MEDS: Acetaminophen 325 MG TABLET 650 MG PO ×2 (08:07→15:37)
--- NOTE | 2022-01-15 08:38 | HO.POSTANES ---
Post Anesthesia Evaluation Post Anesthesia Evaluation Vital Signs: Vital Signs Temp Pulse Resp BP Pulse Ox 01/15/22 07:49 97.6 F 73 20 111/55 L 92 01/15/22 03:33 97.0 F 75 19 106/60 92 01/14/22 23:40 97.3 F 75 18 110/58 L 93 Anesthesia: General Endotracheal-GETA Mental Status: Awake Pain Control: Satisfactory Nausea/Vomiting: None Hydration: Adequate Anesthesia-Related Issues: No Anes. Related Issues
[2022-01-15] MEDS: oxyCODONE HCl Immed Release 5 MG TABLET PO ×2 (10:03→15:38)
[2022-01-15] MEDS: Heparin Sodium,Porcine 5,000 UNIT/ML VIAL 5000 UNIT SUBCUT ×2 (10:04→18:17)
--- NOTE | 2022-01-15 10:22 | HO.PM.IMPN ---
Subjective Subjective Date of Service: 01/16/22 Interval History: Patient awake alert, eating clear liquid diet, complaining of mid abdominal discomfort, no acute issues overnigh.t Review of Systems Review of Systems: Yes Unobtainable due to mental status Physical Exam Vital Signs: Vital Signs: Last Vital Signs Temp 97.6 F 01/15/22 07:49 Pulse 73 01/15/22 07:49 Resp 20 01/15/22 07:49 BP 111/55 L 01/15/22 07:49 Pulse Ox 92 01/15/22 07:49 Oxygen Flow Rate 7 01/07/22 17:41 BMI result Body Mass Index 27.3 Const: Other: General?awake, alert, no acute distress.? Neck? supple no JVD. CVS? regular rate rhythm, Respiratory lungs clear to auscultation, no respiratory distress, no wheeze, no rhonchi. Gastrointestinal abdomen soft, distended, mild tenderness to palpation, dressing in place, bowel sounds audible, no guarding. Extremities no edema. Neuro nonfocal, moving all 4 extremity, speech clear. Skin no rash He with clear urine Objective Data Active Medications Acetaminophen (Acetaminophen 325 Mg Tablet) 650 mg PO Q6H PRN PRN Reason: Pain, Mild (Pain Scale 1-3) Last Admin: 01/15/22 08:07 Dose: 650 mg Documented by: ADINA Calcium Carbonate (Calcium Carbonate 750 Mg Tab.Chew) 750 mg PO Q8H PRN PRN Reason: Heartburn Clozapine (Clozapine 100 Mg Tablet) 100 mg PO BEDTIME [facility] Last Admin: 01/14/22 22:37 Dose: 100 mg Documented by: EUSEBIO Haloperidol Lactate (Haloperidol Lactate 5 Mg/Ml Vial) 2 mg IVPUSH Q4H PRN PRN Reason: agitation Heparin Sodium (Porcine) (Heparin Sodium,Porcine 5,000 Unit/Ml Vial) 5,000 unit SUBCUT Q8H [facility] Last Admin: 01/15/22 10:04 Dose: 5,000 unit Documented by: ADINA Lactated Ringer's (Lr) 1,000 mls @ 80 mls/hr IVCONT .[id number] [facility] Last Admin: 01/15/22 01:45 Dose: 80 mls/hr Documented by: EUSEBIO Lamotrigine (Lamotrigine 100 Mg Tablet) 150 mg PO BID [facility] Last Admin: 01/15/22 08:05 Dose: 150 mg Documented by: ADINA Morphine Sulfate (Morphine Sulfate 2 Mg/Ml Cartridge) 2 mg IVPUSH Q3H PRN; Protocol PRN Reason: Pain, Severe (Pain Scale 7-10) Ondansetron HCl (Ondansetron Hcl 4 Mg/2 Ml Vial) 4 mg IVPUSH Q4H PRN PRN Reason: Nausea Last Admin: 01/13/22 18:30 Dose: 4 mg Documented by: MARÍA Oxycodone HCl (Oxycodone Hcl Immed Release 5 Mg Tablet) 5 mg PO Q4H PRN PRN Reason: Pain, Moderate (Pain Scale 4-6 Last Admin: 01/15/22 10:03 Dose: 5 mg Documented by: ADINA Sodium Chloride (0.9 % Sodium Chloride Flush 3 Ml Syringe) 3 ml IVFLUSH QSHIFT [facility] Last Admin: 01/15/22 08:07 Dose: Not Given Documented by: ADINA Non-Admin Reason: IV Running Sodium Chloride (Sodium Chloride 0.65 % Nasal 44 Ml Sprbtl) 1 spray NOSTRIL-B Q8H PRN PRN Reason: Nasal Congestion Labs CBC & Chem 7: 01/15/22 06:59 01/15/22 06:59 Labs: Laboratory Results - last 24 hr 01/15/22 01/15/22 06:59 06:59 MCV 92.3 MCH 29.0 MCHC 31.4 RDW 14.9 Plt Count 329 MPV 9.9 Immature Gran % (Auto) 0.5 H Neut % (Auto) 81.2 H Lymph % (Auto) 11.4 L [place] % (Auto) 6.8 Eos % (Auto) 0.0 Baso % (Auto) 0.1 Lymph # (Auto) 1.0 L [place] # (Auto) 0.6 Eos # (Auto) 0.0 Baso # (Auto) 0.0 Abs Immat Gran (auto) 0.04 H Absolute Neuts (auto) 7.0 Absolute Nucleated RBC 0.000 Nucleated RBC % (auto) 0.0 Anion Gap 12 Estim Creat Clear Calc 89.1 Estimated GFR > 60 Random Glucose TNP Fasting Glucose 123 H Calcium 9.3 Total Bilirubin 0.7 Direct Bilirubin 0.6 H AST 207 H ALT 154 H Alkaline Phosphatase 289 H Total Protein 5.8 L Albumin 3.5 Assessment and Plan (1) Biliary calculus with obstruction without cholecystitis: Status: Acute (2) Abnormal LFTs: Status: Acute Plan 62-year-old lady with underlying history of TBI, dementia, delusional disorder, resident of senior living facility, with recent admission to [facility] on 12/22/2021 through 01/05/2022 for pneumonia also evaluated, by General surgery, for impacted cystic stone and treated conservatively. Discharged on 01/05/2022, readmitted on 01/06/2022 ,status post cholecystostomy on 01/07/2022. Hospital course significant for septic shock requiring initiation of pressor support and transferred to the intensive care unit. Evaluated by General surgery and being planned for cholecystectomy. 1. Biliary calculus with obstruction without cholecystitis status post laparoscopic cholecystectomy and repair of large incisional hernia POD #1 Good pain control, normal BC, no fever , tolerating clear liquid diet, advanced diet as per General surgery LFTs remains elevated but slowly improving question related to multiple medications including Pepcid, omeprazole, lamotrigine,and clozaril, Continue analgesics, oxygen support wean as tolerated 2.TBI/ dementia unspecified -continue Clozaril/Lamictal and as needed Haldol 3. Elevated LFTs Normal hepatitis serology, antimitochondrial, anti smooth muscle antibody negative, CT abdomen showed normal-appearing liver, no evidence of acute cholecystitis intraoperatively likely related to multiple medication, will DC Pepcid, Prilosec, recommend outpatient follow-up with psych for medication adjustment LFTs slowly improving Full code DVT prophylaxis on Lovenox need continued inpatient hospitalization since s/p cholecystectomy on clear liquid diet and hernia repair requiring IV pain medication. Quality Stroke Does the patient have a stroke diagnosis?: No VTE Prior VTE?: No VTE Risk Level:: Medical - moderate - high VTE Device Contraindication: Treatment Not Indicated VTE Drug Contraindication: N/A - Med Ordered
[2022-01-15 11:43] VITALS: BP 96/55; PULSE 77; RESP 20; TEMP 36.6; O2SAT 99
--- NOTE | 2022-01-15 15:10 | MHC.CLN ---
NUTRITION CONSULT FOR SKIN ISSUE. REDNESS TO BUTTOCKS AND GROIN AREA NOTED, STAGE I. DIET ADVANCED TO CLEAR LIQUIDS ON 01/14. ADDING ENSURE CLEAR TID TO INCREASE NUTRITIONAL INTAKE.
[2022-01-15 15:19] VITALS: BP 101/55; PULSE 73; RESP 18; TEMP 35.8; O2SAT 96
[2022-01-15 19:20] VITALS: BP 102/54; PULSE 66; RESP 16; TEMP 35.9; O2SAT 97
[2022-01-15] MEDS: cloZAPine 100 MG TABLET PO (20:53)
[2022-01-15 23:39] VITALS: BP 110/59; PULSE 65; RESP 16; TEMP 36; O2SAT 96
[2022-01-16] VITALS (8 sets, daily range): BP systolic 109–141; BP diastolic 49–65; PULSE 71–86; RESP 16–22; TEMP 36–36.6; O2SAT 93–98
[2022-01-16] MEDS: Heparin Sodium,Porcine 5,000 UNIT/ML VIAL 5000 UNIT SUBCUT ×3 (02:11→17:51)
[2022-01-16] MEDS: Lactated Ringers 1,000 ML 80 ML IVCONT ×2 (02:12→16:04)
--- NOTE | 2022-01-16 08:54 | PM.PNGS ---
Subjective Subjective Date of Service: 01/16/22 Interval history: Patient having difficulty expressing herself this morning. Reports some incisional pain at the hernia site. Physical Exam Vital Signs: Vital Signs: Last Vital Signs Temp 96.9 F 01/16/22 07:17 Pulse 76 01/16/22 07:17 Resp 16 01/16/22 07:17 BP 109/58 L 01/16/22 07:17 Pulse Ox 94 01/16/22 07:17 Oxygen Flow Rate 4 01/15/22 15:26 BMI result Body Mass Index 27.3 Const: General: no acute distress and confusion Nutritional Appearance: well nourished Orientation/consciousness: confusion Limitations: altered mental status Resp: Effort & Inspection: normal respiratory effort GI: Other: Incisions clean, dry, and intact without redness or discharge. Skin: Other: Warm, dry, no rash. Normal color. Neuro: General: confusion Objective Data Active Medications Acetaminophen (Acetaminophen 325 Mg Tablet) 650 mg PO Q6H PRN PRN Reason: Pain, Mild (Pain Scale 1-3) Last Admin: 01/15/22 15:37 Dose: 650 mg Documented by: KAYLYNN Calcium Carbonate (Calcium Carbonate 750 Mg Tab.Chew) 750 mg PO Q8H PRN PRN Reason: Heartburn Clozapine (Clozapine 100 Mg Tablet) 100 mg PO BEDTIME [facility] Last Admin: 01/15/22 20:53 Dose: 100 mg Documented by: VIRGINIA Haloperidol Lactate (Haloperidol Lactate 5 Mg/Ml Vial) 2 mg IVPUSH Q4H PRN PRN Reason: agitation Heparin Sodium (Porcine) (Heparin Sodium,Porcine 5,000 Unit/Ml Vial) 5,000 unit SUBCUT Q8H [facility] Last Admin: 01/16/22 02:11 Dose: 5,000 unit Documented by: VIRGINIA Lactated Ringer's (Lr) 1,000 mls @ 80 mls/hr IVCONT .[id number] [facility] Last Admin: 01/16/22 02:12 Dose: 80 mls/hr Documented by: VIRGINIA Lamotrigine (Lamotrigine 100 Mg Tablet) 150 mg PO BID [facility] Last Admin: 01/15/22 20:52 Dose: 150 mg Documented by: VIRGINIA Morphine Sulfate (Morphine Sulfate 2 Mg/Ml Cartridge) 2 mg IVPUSH Q3H PRN; Protocol PRN Reason: Pain, Severe (Pain Scale 7-10) Ondansetron HCl (Ondansetron Hcl 4 Mg/2 Ml Vial) 4 mg IVPUSH Q4H PRN PRN Reason: Nausea Last Admin: 01/13/22 18:30 Dose: 4 mg Documented by: MARÍA Oxycodone HCl (Oxycodone Hcl Immed Release 5 Mg Tablet) 5 mg PO Q4H PRN PRN Reason: Pain, Moderate (Pain Scale 4-6 Last Admin: 01/15/22 15:38 Dose: 5 mg Documented by: KAYLYNN Sodium Chloride (0.9 % Sodium Chloride Flush 3 Ml Syringe) 3 ml IVFLUSH QSHIFT [facility] Last Admin: 01/16/22 00:06 Dose: Not Given Documented by: VIRGINIA Non-Admin Reason: IV Running Sodium Chloride (Sodium Chloride 0.65 % Nasal 44 Ml Sprbtl) 1 spray NOSTRIL-B Q8H PRN PRN Reason: Nasal Congestion Labs CBC & Chem 7: 01/15/22 06:59 01/15/22 06:59 Procedures Date of Service Date of Service: 01/16/22 Progress Note: A&P Assessment and plan (1) Biliary calculus with obstruction without cholecystitis: Status: Acute Plan Pod 2 following repair of incisional hernia and laparoscopic cholecystectomy. Patient is wounds are clean and intact. Discussed mental status with Dr. Young. Could potentially advance diet although swallowing study to evaluate for aspiration is suggested. Fall Risk Details Current Medications: Current Medications Acetaminophen (Acetaminophen 325 Mg Tablet) 650 mg PO Q6H PRN PRN Reason: Pain, Mild (Pain Scale 1-3) Last Admin: 01/15/22 15:37 Dose: 650 mg Documented by: Calcium Carbonate (Calcium Carbonate 750 Mg Tab.Chew) 750 mg PO Q8H PRN PRN Reason: Heartburn Clozapine (Clozapine 100 Mg Tablet) 100 mg PO BEDTIME [facility] Last Admin: 01/15/22 20:53 Dose: 100 mg Documented by: Haloperidol Lactate (Haloperidol Lactate 5 Mg/Ml Vial) 2 mg IVPUSH Q4H PRN PRN Reason: agitation Heparin Sodium (Porcine) (Heparin Sodium,Porcine 5,000 Unit/Ml Vial) 5,000 unit SUBCUT Q8H [facility] Last Admin: 01/16/22 02:11 Dose: 5,000 unit Documented by: Lactated Ringer's (Lr) 1,000 mls @ 80 mls/hr IVCONT .[id number] [facility] Last Admin: 01/16/22 02:12 Dose: 80 mls/hr Documented by: Lamotrigine (Lamotrigine 100 Mg Tablet) 150 mg PO BID [facility] Last Admin: 01/15/22 20:52 Dose: 150 mg Documented by: Morphine Sulfate (Morphine Sulfate 2 Mg/Ml Cartridge) 2 mg IVPUSH Q3H PRN; Protocol PRN Reason: Pain, Severe (Pain Scale 7-10) Ondansetron HCl (Ondansetron Hcl 4 Mg/2 Ml Vial) 4 mg IVPUSH Q4H PRN PRN Reason: Nausea Last Admin: 01/13/22 18:30 Dose: 4 mg Documented by: Oxycodone HCl (Oxycodone Hcl Immed Release 5 Mg Tablet) 5 mg PO Q4H PRN PRN Reason: Pain, Moderate (Pain Scale 4-6 Last Admin: 01/15/22 15:38 Dose: 5 mg Documented by: Sodium Chloride (0.9 % Sodium Chloride Flush 3 Ml Syringe) 3 ml IVFLUSH QSHIFT [facility] Last Admin: 01/16/22 00:06 Dose: Not Given Documented by: Sodium Chloride (Sodium Chloride 0.65 % Nasal 44 Ml Sprbtl) 1 spray NOSTRIL-B Q8H PRN PRN Reason: Nasal Congestion Time Spent With Patient Time: Total time spent is greater than 50% in coordination of care (as documented) at patient's floor/unit and/or counseling patient: Quality Stroke Does the patient have a stroke diagnosis?: No VTE Prior VTE?: No VTE Risk Level:: Medical - moderate - high VTE Device Contraindication: Treatment Not Indicated VTE Drug Contraindication: N/A - Med Ordered
[2022-01-16] MEDS: 0.9 % Sodium Chloride Flush 3 ML SYRINGE IVFLUSH ×2 (09:10→16:05)
[2022-01-16] MEDS: lamoTRIgine 100 MG TABLET 150 MG PO ×2 (09:10→20:54)
[2022-01-16] MEDS: Acetaminophen 325 MG TABLET 650 MG PO (09:11)
--- NOTE | 2022-01-16 13:09 | HO.PM.IMPN ---
Subjective Subjective Date of Service: 01/16/22 Interval History: Complaining of abdominal pain tolerating clear liquid diet no nausea, no vomiting, no behavioral issues overnight did not require Haldol. Review of Systems Review of Systems: Yes Unobtainable due to mental status Physical Exam Vital Signs: Vital Signs: Last Vital Signs Temp 96.8 F 01/16/22 11:09 Pulse 79 01/16/22 11:09 Resp 17 01/16/22 11:09 BP 110/49 L 01/16/22 11:09 Pulse Ox 97 01/16/22 12:00 Oxygen Flow Rate 4.0 01/16/22 12:00 BMI result Body Mass Index 27.3 Const: Other: General?awake, alert, no acute distress.? Neck? supple no JVD. CVS? regular rate rhythm, Respiratory lungs clear to auscultation, no respiratory distress, no wheeze, no rhonchi. Gastrointestinal abdomen soft, distended, mild tenderness to palpation, dressing in place, bowel sounds audible, no guarding. Extremities no edema. Neuro nonfocal, moving all 4 extremity, speech clear. Skin no rash Objective Data Active Medications Acetaminophen (Acetaminophen 325 Mg Tablet) 650 mg PO Q6H PRN PRN Reason: Pain, Mild (Pain Scale 1-3) Last Admin: 01/16/22 09:11 Dose: 650 mg Documented by: MARÍA Calcium Carbonate (Calcium Carbonate 750 Mg Tab.Chew) 750 mg PO Q8H PRN PRN Reason: Heartburn Clozapine (Clozapine 100 Mg Tablet) 100 mg PO BEDTIME [facility] Last Admin: 01/15/22 20:53 Dose: 100 mg Documented by: VIR[place] Haloperidol Lactate (Haloperidol Lactate 5 Mg/Ml Vial) 2 mg IVPUSH Q4H PRN PRN Reason: agitation Heparin Sodium (Porcine) (Heparin Sodium,Porcine 5,000 Unit/Ml Vial) 5,000 unit SUBCUT Q8H [facility] Last Admin: 01/16/22 09:29 Dose: 5,000 unit Documented by: MARÍA Lactated Ringer's (Lr) 1,000 mls @ 80 mls/hr IVCONT .[id number] [facility] Last Admin: 01/16/22 02:12 Dose: 80 mls/hr Documented by: VIRGINIA Lamotrigine (Lamotrigine 100 Mg Tablet) 150 mg PO BID [facility] Last Admin: 01/16/22 09:10 Dose: 150 mg Documented by: MARÍA Morphine Sulfate (Morphine Sulfate 2 Mg/Ml Cartridge) 2 mg IVPUSH Q3H PRN; Protocol PRN Reason: Pain, Severe (Pain Scale 7-10) Ondansetron HCl (Ondansetron Hcl 4 Mg/2 Ml Vial) 4 mg IVPUSH Q4H PRN PRN Reason: Nausea Last Admin: 01/13/22 18:30 Dose: 4 mg Documented by: MARÍA Oxycodone HCl (Oxycodone Hcl Immed Release 5 Mg Tablet) 5 mg PO Q4H PRN PRN Reason: Pain, Moderate (Pain Scale 4-6 Last Admin: 01/15/22 15:38 Dose: 5 mg Documented by: KAYLYNN Sodium Chloride (0.9 % Sodium Chloride Flush 3 Ml Syringe) 3 ml IVFLUSH QSHIFT [facility] Last Admin: 01/16/22 09:10 Dose: 3 ml Documented by: MARÍA Sodium Chloride (Sodium Chloride 0.65 % Nasal 44 Ml Sprbtl) 1 spray NOSTRIL-B Q8H PRN PRN Reason: Nasal Congestion Labs CBC & Chem 7: 01/15/22 06:59 01/15/22 06:59 Assessment and Plan (1) Biliary calculus with obstruction without cholecystitis: Status: Acute (2) Abnormal LFTs: Status: Acute Plan 62-year-old lady with underlying history of TBI, dementia, delusional disorder, resident of senior living facility, with recent admission to [facility] on 12/22/2021 through 01/05/2022 for pneumonia also evaluated, by General surgery, for impacted cystic stone and treated conservatively. Discharged on 01/05/2022, readmitted on 01/06/2022 ,status post cholecystostomy on 01/07/2022. Hospital course significant for septic shock requiring initiation of pressor support and transferred to the intensive care unit. Evaluated by General surgery and being planned for cholecystectomy. 1. Biliary calculus with obstruction without cholecystitis status post laparoscopic cholecystectomy and repair of large incisional hernia POD #2 Good pain control, normal BC, no fever , tolerating clear liquid diet LFTs remains elevated but slowly improving question related to multiple medications including Pepcid, omeprazole, lamotrigine,and clozaril, Continue analgesics, wean oxygen as tolerated 2.TBI/ dementia unspecified -continue Clozaril/Lamictal and as needed Haldol 3. Elevated LFTs Slowly improving Normal hepatitis serology, antimitochondrial, anti smooth muscle antibody negative, CT abdomen showed normal-appearing liver, no evidence of acute cholecystitis intraoperatively likely related to multiple medication, will DC Pepcid, Prilosec, recommend outpatient follow-up with psych for medication adjustment Check liver profile at a.m. Full code DVT prophylaxis on Lovenox need continued inpatient hospitalization since s/p cholecystectomy on clear liquid diet and hernia repair requiring IV pain medication. Quality Stroke Does the patient have a stroke diagnosis?: No VTE Prior VTE?: No VTE Risk Level:: Medical - moderate - high VTE Device Contraindication: Treatment Not Indicated VTE Drug Contraindication: N/A - Med Ordered
[2022-01-16] MEDS: cloZAPine 100 MG TABLET PO (20:53)
[2022-01-16] MEDS: oxyCODONE HCl Immed Release 5 MG TABLET PO (20:54)
[2022-01-17] VITALS (8 sets, daily range): BP systolic 112–130; BP diastolic 52–94; PULSE 80–101; RESP 16–20; TEMP 36.3–36.9; O2SAT 91–97
[2022-01-17] MEDS: Heparin Sodium,Porcine 5,000 UNIT/ML VIAL 5000 UNIT SUBCUT ×3 (03:52→18:16)
[2022-01-17] MEDS: Lactated Ringers 1,000 ML 80 ML IVCONT (03:53)
[2022-01-17 06:33] LABS: Alanine Aminotransferase 227 U/L (0-31); Albumin Level 3.2 g/dL (3.5-5.0); Alkaline Phosphatase 322 U/L (39-117); Aspartate Amino Transferase 343 U/L (5-31); Bilirubin Direct 0.6 mg/dL (0.0-0.5); Bilirubin Total 0.8 mg/dL (0.0-1.0); Total Protein 5.2 g/dL (6.5-8.0)
--- NOTE | 2022-01-17 09:42 | P.PNGS_ITS ---
Subjective Subjective Date of Service: 01/17/22 Interval history: Patient eating Jell-O. Reports some incisional pain. Physical Exam Vital Signs: Vital Signs: Last Vital Signs Temp 97.4 F 01/17/22 07:33 Pulse 89 01/17/22 07:33 Resp 17 01/17/22 07:33 BP 112/94 H 01/17/22 07:33 Pulse Ox 91 L 01/17/22 07:33 Oxygen Flow Rate 4 01/16/22 16:00 BMI result Body Mass Index 27.3 Const: General: no acute distress and confusion Nutritional Appearance: well nourished Orientation/consciousness: confusion Limitations: altered mental status and language barrier Resp: Effort & Inspection: normal respiratory effort, no audible wheezes and no cough GI: Other: Incision is clean, dry, and intact redness or discharge. Trocar sites are clean and intact as well. Skin: Other: Warm, dry, normal color Neuro: General: confusion Objective Data Active Medications Acetaminophen (Acetaminophen 325 Mg Tablet) 650 mg PO Q6H PRN PRN Reason: Pain, Mild (Pain Scale 1-3) Last Admin: 01/16/22 09:11 Dose: 650 mg Documented by: MARÍA Calcium Carbonate (Calcium Carbonate 750 Mg Tab.Chew) 750 mg PO Q8H PRN PRN Reason: Heartburn Clozapine (Clozapine 100 Mg Tablet) 100 mg PO BEDTIME [facility] Last Admin: 01/16/22 20:53 Dose: 100 mg Documented by: VIR[place] Haloperidol Lactate (Haloperidol Lactate 5 Mg/Ml Vial) 2 mg IVPUSH Q4H PRN PRN Reason: agitation Heparin Sodium (Porcine) (Heparin Sodium,Porcine 5,000 Unit/Ml Vial) 5,000 unit SUBCUT Q8H [facility] Last Admin: 01/17/22 03:52 Dose: 5,000 unit Documented by: VIR[place]IA Lamotrigine (Lamotrigine 100 Mg Tablet) 150 mg PO BID [facility] Last Admin: 01/16/22 20:54 Dose: 150 mg Documented by: VIR[place]IA Ondansetron HCl (Ondansetron Hcl 4 Mg/2 Ml Vial) 4 mg IVPUSH Q4H PRN PRN Reason: Nausea Last Admin: 01/13/22 18:30 Dose: 4 mg Documented by: MARÍA Oxycodone HCl (Oxycodone Hcl Immed Release 5 Mg Tablet) 5 mg PO Q4H PRN PRN Reason: Pain, Moderate (Pain Scale 4-6 Last Admin: 01/16/22 20:54 Dose: 5 mg Documented by: VIR[place]IA Sodium Chloride (0.9 % Sodium Chloride Flush 3 Ml Syringe) 3 ml IVFLUSH QSHIFT [facility] Last Admin: 01/17/22 00:03 Dose: Not Given Documented by: VIR[place] Non-Admin Reason: IV Running Sodium Chloride (Sodium Chloride 0.65 % Nasal 44 Ml Sprbtl) 1 spray NOSTRIL-B Q8H PRN PRN Reason: Nasal Congestion Labs CBC & Chem 7: 01/15/22 06:59 01/15/22 06:59 Labs: Laboratory Results - last 24 hr 01/17/22 04:24 Total Bilirubin 0.8 Direct Bilirubin 0.6 H AST 343 H ALT 227 H Alkaline Phosphatase 322 H Total Protein 5.2 L Albumin 3.2 L Procedures Date of Service Date of Service: 01/17/22 Progress Note: A&P Assessment and plan (1) Biliary calculus with obstruction without cholecystitis: Status: Acute Assessment and Plan: POD #3 following repair of incisional hernia and laparoscopic cholecystectomy.? Patient's wounds are clean and intact.? Patient is tolerating a clear liquid diet without apparent aspiration. Agree with advancing to regular diet. Discharge when regular diet is tolerated with follow-up with Dr. Pollard in 2 weeks after discharge. Fall Risk Details Current Medications: Current Medications Acetaminophen (Acetaminophen 325 Mg Tablet) 650 mg PO Q6H PRN PRN Reason: Pain, Mild (Pain Scale 1-3) Last Admin: 01/16/22 09:11 Dose: 650 mg Documented by: Calcium Carbonate (Calcium Carbonate 750 Mg Tab.Chew) 750 mg PO Q8H PRN PRN Reason: Heartburn Clozapine (Clozapine 100 Mg Tablet) 100 mg PO BEDTIME [facility] Last Admin: 01/16/22 20:53 Dose: 100 mg Documented by: Haloperidol Lactate (Haloperidol Lactate 5 Mg/Ml Vial) 2 mg IVPUSH Q4H PRN PRN Reason: agitation Heparin Sodium (Porcine) (Heparin Sodium,Porcine 5,000 Unit/Ml Vial) 5,000 unit SUBCUT Q8H [facility] Last Admin: 01/17/22 03:52 Dose: 5,000 unit Documented by: Lamotrigine (Lamotrigine 100 Mg Tablet) 150 mg PO BID [facility] Last Admin: 01/16/22 20:54 Dose: 150 mg Documented by: Ondansetron HCl (Ondansetron Hcl 4 Mg/2 Ml Vial) 4 mg IVPUSH Q4H PRN PRN Reason: Nausea Last Admin: 01/13/22 18:30 Dose: 4 mg Documented by: Oxycodone HCl (Oxycodone Hcl Immed Release 5 Mg Tablet) 5 mg PO Q4H PRN PRN Reason: Pain, Moderate (Pain Scale 4-6 Last Admin: 01/16/22 20:54 Dose: 5 mg Documented by: Sodium Chloride (0.9 % Sodium Chloride Flush 3 Ml Syringe) 3 ml IVFLUSH QSHIFT [facility] Last Admin: 01/17/22 00:03 Dose: Not Given Documented by: Sodium Chloride (Sodium Chloride 0.65 % Nasal 44 Ml Sprbtl) 1 spray NOSTRIL-B Q8H PRN PRN Reason: Nasal Congestion Time Spent With Patient Time: Total time spent is greater than 50% in coordination of care (as documented) at patient's floor/unit and/or counseling patient: Quality Stroke Does the patient have a stroke diagnosis?: No VTE Prior VTE?: No VTE Risk Level:: Medical - moderate - high VTE Device Contraindication: Treatment Not Indicated VTE Drug Contraindication: N/A - Med Ordered
[2022-01-17] MEDS: oxyCODONE HCl Immed Release 5 MG TABLET PO (10:16)
[2022-01-17] MEDS: lamoTRIgine 100 MG TABLET 150 MG PO ×2 (10:16→20:50)
[2022-01-17] MEDS: 0.9 % Sodium Chloride Flush 3 ML SYRINGE IVFLUSH ×3 (10:19→20:51)
--- NOTE | 2022-01-17 10:48 | HO.PM.IMPN ---
Subjective Subjective Date of Service: 01/17/22 Interval History: Good pain control, tolerating clear liquid diet had multiple bowel movements, no fevers, no chills, on 4 L of oxygen finger oximetry 91%, no other acute issues overnight. Review of Systems Review of Systems: Yes Unobtainable due to mental status Physical Exam Vital Signs: Vital Signs: Last Vital Signs Temp 97.4 F 01/17/22 07:33 Pulse 89 01/17/22 07:33 Resp 17 01/17/22 07:33 BP 112/94 H 01/17/22 07:33 Pulse Ox 91 L 01/17/22 07:33 Oxygen Flow Rate 4 01/16/22 16:00 BMI result Body Mass Index 27.3 Const: Other: General?awake, alert, no acute distress.? Neck? supple no JVD. Right IJ catheter in place CVS? regular rate rhythm, Respiratory lungs clear to auscultation, no respiratory distress, no wheeze, no rhonchi. Gastrointestinal abdomen soft, distended, mild tenderness to palpation, dressing in place, bowel sounds audible, no guarding. Extremities no edema. Neuro nonfocal, moving all 4 extremity, speech clear. Skin no rash ? Objective Data Active Medications Acetaminophen (Acetaminophen 325 Mg Tablet) 650 mg PO Q6H PRN PRN Reason: Pain, Mild (Pain Scale 1-3) Last Admin: 01/16/22 09:11 Dose: 650 mg Documented by: MARÍA Calcium Carbonate (Calcium Carbonate 750 Mg Tab.Chew) 750 mg PO Q8H PRN PRN Reason: Heartburn Clozapine (Clozapine 100 Mg Tablet) 100 mg PO BEDTIME [facility] Last Admin: 01/16/22 20:53 Dose: 100 mg Documented by: VIR[place] Haloperidol Lactate (Haloperidol Lactate 5 Mg/Ml Vial) 2 mg IVPUSH Q4H PRN PRN Reason: agitation Heparin Sodium (Porcine) (Heparin Sodium,Porcine 5,000 Unit/Ml Vial) 5,000 unit SUBCUT Q8H [facility] Last Admin: 01/17/22 10:19 Dose: 5,000 unit Documented by: MARÍA Lamotrigine (Lamotrigine 100 Mg Tablet) 150 mg PO BID [facility] Last Admin: 01/17/22 10:16 Dose: 150 mg Documented by: MARÍA Ondansetron HCl (Ondansetron Hcl 4 Mg/2 Ml Vial) 4 mg IVPUSH Q4H PRN PRN Reason: Nausea Last Admin: 01/13/22 18:30 Dose: 4 mg Documented by: MARÍA Oxycodone HCl (Oxycodone Hcl Immed Release 5 Mg Tablet) 5 mg PO Q4H PRN PRN Reason: Pain, Moderate (Pain Scale 4-6 Last Admin: 01/17/22 10:16 Dose: 5 mg Documented by: MARÍA Sodium Chloride (0.9 % Sodium Chloride Flush 3 Ml Syringe) 3 ml IVFLUSH QSHIFT PRIYANKA Last Admin: 01/17/22 10:19 Dose: 3 ml Documented by: MARÍA Sodium Chloride (Sodium Chloride 0.65 % Nasal 44 Ml Sprbtl) 1 spray NOSTRIL-B Q8H PRN PRN Reason: Nasal Congestion Labs CBC & Chem 7: 01/15/22 06:59 01/15/22 06:59 Labs: Laboratory Results - last 24 hr 01/17/22 04:24 Total Bilirubin 0.8 Direct Bilirubin 0.6 H AST 343 H ALT 227 H Alkaline Phosphatase 322 H Total Protein 5.2 L Albumin 3.2 L Assessment and Plan (1) Biliary calculus with obstruction without cholecystitis: Status: Acute (2) Abnormal LFTs: Status: Acute Plan 62-year-old lady with underlying history of TBI, dementia, delusional disorder, resident of shelter facility, with recent admission to [facility] on 12/22/2021 through 01/05/2022 for pneumonia also evaluated, by General surgery, for impacted cystic stone and treated conservatively. Discharged on 01/05/2022, readmitted on 01/06/2022 ,status post cholecystostomy on 01/07/2022. Hospital course significant for septic shock requiring initiation of pressor support and transferred to the intensive care unit. Evaluated by General surgery and being planned for cholecystectomy. 1. Biliary calculus with obstruction without cholecystitis status post laparoscopic cholecystectomy and repair of large incisional hernia POD #3 Good pain control, normal BC, no fever , tolerating clear liquid diet LFTs remains elevated slight bump in liver enzymes this morning, question related to multiple medications including Pepcid, omeprazole, lamotrigine,and clozaril, Continue analgesics, wean oxygen as tolerated Spoke with surgery will DC IV fluid and advanced diet Out of bed to chair, add incentive spirometry and deep breathing exercise Poor IV access has right IJ triple-lumen catheter/will attempt peripheral line 2.TBI/ dementia unspecified -continue Clozaril/Lamictal and as needed Haldol 3. Elevated LFTs Persistent elevated LFT Normal hepatitis serology, antimitochondrial, anti smooth muscle antibody negative, CT abdomen showed normal-appearing liver, no evidence of acute cholecystitis intraoperatively likely related to multiple medication, stopped Pepcid, Prilosec, recommend outpatient follow-up with psych for medication adjustment for Lamictal and clozaril. Will rediscuss with GI 4. Acute hypoxic respiratory failure on oxygen, not on home O2 likely due to atelectasis, will gradually wean oxygen to keep finger oximetry 94%, encourage deep breathing exercises, difficulty to learn to use incentive spirometery. Full code DVT prophylaxis on Lovenox need continued inpatient hospitalization since s/p cholecystectomy on clear liquid diet, being gradually advanced and hernia repair requiring IV pain medication. Quality Stroke Does the patient have a stroke diagnosis?: No VTE Prior VTE?: No VTE Risk Level:: Medical - moderate - high VTE Device Contraindication: Treatment Not Indicated VTE Drug Contraindication: N/A - Med Ordered
[2022-01-17] MEDS: cloZAPine 100 MG TABLET PO (20:50)
--- NOTE | 2022-01-17 21:29 | PC.NURSE ---
TLC to right to right neck dc'd.xeroform,dsd and tegaderm dressing applied.pt tolerated well.
[2022-01-18] VITALS (7 sets, daily range): BP systolic 121–133; BP diastolic 58–69; PULSE 82–93; RESP 15–18; TEMP 36–36.3; O2SAT 92–96
[2022-01-18] MEDS: Heparin Sodium,Porcine 5,000 UNIT/ML VIAL 5000 UNIT SUBCUT ×3 (03:28→18:30)
--- NOTE | 2022-01-18 09:25 | PM.PNGS ---
Subjective Subjective Date of Service: 01/18/22 Interval history: Patient with no new complaints. Abdominal pain appears improved. Patient tolerating regular diet. Physical Exam Vital Signs: Vital Signs: Last Vital Signs Temp 96.8 F 01/18/22 07:50 Pulse 82 01/18/22 07:50 Resp 16 01/18/22 07:50 BP 121/59 L 01/18/22 07:50 Pulse Ox 96 01/18/22 07:50 Oxygen Flow Rate 2 01/17/22 16:00 BMI result Body Mass Index 27.3 Const: General: comfortable and no acute distress Resp: Effort & Inspection: normal respiratory effort, no cough and no respiratory distress GI: Other: Abdominal incisions are clean, dry, and intact. Dressings removed. No evidence of wound infection or hernia recurrence. Skin: Other: Warm, dry, no rash Extrem: Other: No edema Objective Data Active Medications Acetaminophen (Acetaminophen 325 Mg Tablet) 650 mg PO Q6H PRN PRN Reason: Pain, Mild (Pain Scale 1-3) Last Admin: 01/16/22 09:11 Dose: 650 mg Documented by: MARÍA Calcium Carbonate (Calcium Carbonate 750 Mg Tab.Chew) 750 mg PO Q8H PRN PRN Reason: Heartburn Clozapine (Clozapine 100 Mg Tablet) 100 mg PO BEDTIME [facility] Last Admin: 01/17/22 20:50 Dose: 100 mg Documented by: [place] Haloperidol Lactate (Haloperidol Lactate 5 Mg/Ml Vial) 2 mg IVPUSH Q4H PRN PRN Reason: agitation Heparin Sodium (Porcine) (Heparin Sodium,Porcine 5,000 Unit/Ml Vial) 5,000 unit SUBCUT Q8H [facility] Last Admin: 01/18/22 03:28 Dose: 5,000 unit Documented by: V[place] Lamotrigine (Lamotrigine 100 Mg Tablet) 150 mg PO BID [facility] Last Admin: 01/17/22 20:50 Dose: 150 mg Documented by: V[place] Ondansetron HCl (Ondansetron Hcl 4 Mg/2 Ml Vial) 4 mg IVPUSH Q4H PRN PRN Reason: Nausea Last Admin: 01/13/22 18:30 Dose: 4 mg Documented by: MARÍA Oxycodone HCl (Oxycodone Hcl Immed Release 5 Mg Tablet) 5 mg PO Q4H PRN PRN Reason: Pain, Moderate (Pain Scale 4-6 Last Admin: 01/17/22 10:16 Dose: 5 mg Documented by: MARÍA Sodium Chloride (0.9 % Sodium Chloride Flush 3 Ml Syringe) 3 ml IVFLUSH QSHIFT [facility] Last Admin: 01/17/22 20:51 Dose: 3 ml Documented by: V[place] Sodium Chloride (Sodium Chloride 0.65 % Nasal 44 Ml Sprbtl) 1 spray NOSTRIL-B Q8H PRN PRN Reason: Nasal Congestion Labs CBC & Chem 7: 01/15/22 06:59 01/15/22 06:59 Procedures Date of Service Date of Service: 01/18/22 Progress Note: A&P Assessment and plan (1) Biliary calculus with obstruction without cholecystitis: Status: Acute (2) Incisional hernia: Status: Acute Plan Overall the patient is doing well. A bump in the LFTs is noted. Discussed with Dr. Young; may be related to medications. Wounds are clean and intact. Patient tolerating a regular diet. Follow-up with Dr. Pollard in approximately 2 weeks following discharge. Fall Risk Details Current Medications: Current Medications Acetaminophen (Acetaminophen 325 Mg Tablet) 650 mg PO Q6H PRN PRN Reason: Pain, Mild (Pain Scale 1-3) Last Admin: 01/16/22 09:11 Dose: 650 mg Documented by: Calcium Carbonate (Calcium Carbonate 750 Mg Tab.Chew) 750 mg PO Q8H PRN PRN Reason: Heartburn Clozapine (Clozapine 100 Mg Tablet) 100 mg PO BEDTIME [facility] Last Admin: 01/17/22 20:50 Dose: 100 mg Documented by: Haloperidol Lactate (Haloperidol Lactate 5 Mg/Ml Vial) 2 mg IVPUSH Q4H PRN PRN Reason: agitation Heparin Sodium (Porcine) (Heparin Sodium,Porcine 5,000 Unit/Ml Vial) 5,000 unit SUBCUT Q8H [facility] Last Admin: 01/18/22 03:28 Dose: 5,000 unit Documented by: Lamotrigine (Lamotrigine 100 Mg Tablet) 150 mg PO BID [facility] Last Admin: 01/17/22 20:50 Dose: 150 mg Documented by: Ondansetron HCl (Ondansetron Hcl 4 Mg/2 Ml Vial) 4 mg IVPUSH Q4H PRN PRN Reason: Nausea Last Admin: 01/13/22 18:30 Dose: 4 mg Documented by: Oxycodone HCl (Oxycodone Hcl Immed Release 5 Mg Tablet) 5 mg PO Q4H PRN PRN Reason: Pain, Moderate (Pain Scale 4-6 Last Admin: 01/17/22 10:16 Dose: 5 mg Documented by: Sodium Chloride (0.9 % Sodium Chloride Flush 3 Ml Syringe) 3 ml IVFLUSH QSHIFT PRI[facility]A Last Admin: 01/17/22 20:51 Dose: 3 ml Documented by: Sodium Chloride (Sodium Chloride 0.65 % Nasal 44 Ml Sprbtl) 1 spray NOSTRIL-B Q8H PRN PRN Reason: Nasal Congestion Time Spent With Patient Time: Total time spent is greater than 50% in coordination of care (as documented) at patient's floor/unit and/or counseling patient: Quality Stroke Does the patient have a stroke diagnosis?: No VTE Prior VTE?: No VTE Risk Level:: Medical - moderate - high VTE Device Contraindication: Treatment Not Indicated VTE Drug Contraindication: N/A - Med Ordered
[2022-01-18] MEDS: lamoTRIgine 100 MG TABLET 150 MG PO ×2 (09:51→21:09)
[2022-01-18] MEDS: 0.9 % Sodium Chloride Flush 3 ML SYRINGE IVFLUSH ×3 (09:51→21:10)
[2022-01-18 12:34] LABS: Alanine Aminotransferase 251 U/L (0-31); Albumin Level 3.3 g/dL (3.5-5.0); Alkaline Phosphatase 381 U/L (39-117); Aspartate Amino Transferase 334 U/L (5-31); Bilirubin Direct 0.6 mg/dL (0.0-0.5); Bilirubin Total 1.2 mg/dL (0.0-1.0); Total Protein 5.7 g/dL (6.5-8.0)
--- NOTE | 2022-01-18 12:59 | P.PNIM_ITS ---
Subjective Subjective Date of Service: 01/18/22 Interval History: Patient awake alert, resting comfortably walked a little to chair with 1 assist, complain of minimal pain at site of incision, denies right upper quadrant abdominal pain, no acute overnight issues denies nausea vomiting. Tolerating diet Review of Systems Review of Systems: Yes Unobtainable due to mental status Physical Exam Vital Signs: Vital Signs: Last Vital Signs Temp 97.4 F 01/18/22 11:41 Pulse 89 01/18/22 11:41 Resp 15 01/18/22 11:41 BP 130/58 L 01/18/22 11:41 Pulse Ox 92 01/18/22 11:47 Oxygen Flow Rate 2 01/18/22 11:47 BMI result Body Mass Index 27.3 Const: Other: General?awake, alert, no acute distress.? Neck? supple no JVD.? CVS? regular rate rhythm, Respiratory lungs clear to auscultation, no respiratory distress, no wheeze, no rhonchi. Gastrointestinal abdomen soft, distended, mild tenderness to palpation, sutures in place, incision dry and clean, bowel sounds audible, no guarding. Extremities no edema. Neuro nonfocal, moving all 4 extremity, speech clear. Skin no rash ? Objective Data Active Medications Acetaminophen (Acetaminophen 325 Mg Tablet) 650 mg PO Q6H PRN PRN Reason: Pain, Mild (Pain Scale 1-3) Last Admin: 01/16/22 09:11 Dose: 650 mg Documented by: MARÍA Calcium Carbonate (Calcium Carbonate 750 Mg Tab.Chew) 750 mg PO Q8H PRN PRN Reason: Heartburn Clozapine (Clozapine 100 Mg Tablet) 100 mg PO BEDTIME [facility] Last Admin: 01/17/22 20:50 Dose: 100 mg Documented by: [place] Haloperidol Lactate (Haloperidol Lactate 5 Mg/Ml Vial) 2 mg IVPUSH Q4H PRN PRN Reason: agitation Heparin Sodium (Porcine) (Heparin Sodium,Porcine 5,000 Unit/Ml Vial) 5,000 unit SUBCUT Q8H [facility] Last Admin: 01/18/22 09:51 Dose: 5,000 unit Documented by: MARÍA Lamotrigine (Lamotrigine 100 Mg Tablet) 150 mg PO BID [facility] Last Admin: 01/18/22 09:51 Dose: 150 mg Documented by: MARÍA Ondansetron HCl (Ondansetron Hcl 4 Mg/2 Ml Vial) 4 mg IVPUSH Q4H PRN PRN Reason: Nausea Last Admin: 01/13/22 18:30 Dose: 4 mg Documented by: MARÍA Oxycodone HCl (Oxycodone Hcl Immed Release 5 Mg Tablet) 5 mg PO Q4H PRN PRN Reason: Pain, Moderate (Pain Scale 4-6 Last Admin: 01/17/22 10:16 Dose: 5 mg Documented by: MARÍA Sodium Chloride (0.9 % Sodium Chloride Flush 3 Ml Syringe) 3 ml IVFLUSH QSHIFT [facility] Last Admin: 01/18/22 09:51 Dose: 3 ml Documented by: MARÍA Sodium Chloride (Sodium Chloride 0.65 % Nasal 44 Ml Sprbtl) 1 spray NOSTRIL-B Q8H PRN PRN Reason: Nasal Congestion Labs CBC & Chem 7: 01/15/22 06:59 01/15/22 06:59 Labs: Laboratory Results - last 24 hr 01/18/22 11:32 Total Bilirubin 1.2 H Direct Bilirubin 0.6 H AST 334 H ALT 251 H Alkaline Phosphatase 381 H Total Protein 5.7 L Albumin 3.3 L Assessment and Plan (1) Biliary calculus with obstruction without cholecystitis: Status: Acute (2) Abnormal LFTs: Status: Acute Plan 62-year-old lady with underlying history of TBI, dementia, delusional disorder, resident of senior living facility, with recent admission to [facility] on 12/22/2021 through 01/05/2022 for pneumonia also evaluated, by General surgery, for impacted cystic stone and treated conservatively. Discharged on 01/05/2022, readmitted on 01/06/2022 ,status post cholecystostomy on 01/07/2022. Hospital course significant for septic shock requiring initiation of pressor support and transferred to the intensive care unit. Evaluated by General surgery and being planned for cholecystectomy. 1. Biliary calculus with obstruction without cholecystitis status post laparoscopic cholecystectomy and repair of large incisional hernia POD #4 Good pain control, normal BC, no fever , tolerating regular diet LFTs remains elevated slight bump in liver enzymes this morning, question related to multiple medications including Pepcid, omeprazole, lamotrigine,and clozaril, Continue analgesics, wean oxygen as tolerated Out of bed to chair, deep breathing exercise Seen by surgery they recommend outpatient follow-up with Dr. Pollard in 2 weeks 2.TBI/ dementia unspecified -continue Clozaril/Lamictal and as needed Haldol, was on Abilify and citalopram prior to admission. 3. Elevated LFTs Persistent elevated LFT, did not improved after cholecystectomy Normal hepatitis serology, antimitochondrial, anti smooth muscle antibody negative, CT abdomen showed normal-appearing liver, no evidence of acute cholecystitis intraoperatively likely related to multiple medication, stopped Pepcid, Prilosec, will consult psych for medication adjustment for Lamictal and clozaril, since can cause hepatotoxicity Will rediscuss with GI Dr. Guillen 4. Acute hypoxic respiratory failure on oxygen, not on home O2 likely due to atelectasis, will gradually wean oxygen to keep finger oximetry 94%,now on 1.5 liters, encourage deep breathing exercises, difficulty to learn to use incentive spirometery. Full code DVT prophylaxis on Lovenox need continued inpatient hospitalization since s/p cholecystectomy with worsening LFTs need psych input and GI evaluation Quality Stroke Does the patient have a stroke diagnosis?: No VTE Prior VTE?: No VTE Risk Level:: Medical - moderate - high VTE Device Contraindication: Treatment Not Indicated VTE Drug Contraindication: N/A - Med Ordered
--- NOTE | 2022-01-18 16:10 | PM.PSYCN ---
History of Present Illness Date of Service: 01/18/22 Chief Complaint: Mental Status Changes Reason for Consult: Increase in LFT's-Recommendations for adjustment of psychotropics. Requesting physician: Ron Young Discussed with referring provider: Yes (text) Sources of Information: patient interviewed (met with pt who is a poor historian, confused, pleasant, essentially non verbal.) and chart reviewed HPI Narrative: 62 yo female, a resident of [facility], s/p TBI presents with acute cholecystitis,s/p cholecystectomy, septic shock, with abnormal LFT's. Team requests psychiatric medication options due to increase LFTs which today are TBili 1.2, DBili 0.6, AST 334, ALT 251, AlkPhos 381. Current regime Clozapine 100 mg HS, Lamictal 150 mg bid, Haldol 2 mg IV q4hprn. Medical Evaluation Reviewed: Yes Review of Systems Review of Systems Nursing reports no behavioral concerns today. [facility] Medical History Acute calculous cholecystitis Aphasia Chondrocostal junction syndrome Delusional disorder Dementia Disruptive mood dysregulation disorder Gallstones GERD (gastroesophageal reflux disease) Hx of migraine headaches Hyperlipidemia Myopia Obsessive compulsive disorder Raynauds syndrome Traumatic brain injury Surgical History History of incisional hernia repair Hx laparoscopic cholecystectomy Diagnostics Vital Signs (24Hr): Vital Signs - 24 hr 01/17/22 19:18 01/17/22 23:20 01/18/22 04:00 Temperature 98.2 F 98.1 F 96.8 F Pulse Rate 98 101 H 88 Respiratory Rate 18 20 16 Blood Pressure 126/52 L 130/63 130/69 Pulse Oximetry 95 92 96 01/18/22 07:50 01/18/22 11:41 01/18/22 11:47 Temperature 96.8 F 97.4 F Pulse Rate 82 89 Respiratory Rate 16 15 Blood Pressure 121/59 L 130/58 L Pulse Oximetry 96 92 92 01/18/22 15:04 01/18/22 16:00 Temperature 97 F Pulse Rate 93 Respiratory Rate 18 Blood Pressure 121/59 L Pulse Oximetry 95 95 BMI result Body Mass Index 27.3 Labs Results: 01/15/22 06:59 01/15/22 06:59 Labs: Laboratory Results - last 48 hr 01/17/22 01/18/22 04:24 11:32 Total Bilirubin 0.8 1.2 H Direct Bilirubin 0.6 H 0.6 H AST 343 H 334 H ALT 227 H 251 H Alkaline Phosphatase 322 H 381 H Total Protein 5.2 L 5.7 L Albumin 3.2 L 3.3 L Imaging Radiology Impressions: ITS Impressions Chest X-Ray 01/06/22 10:40 IMPRESSION: Interval decrease in left basilar atelectasis/infiltrates with mild residual linear markings. Abdomen/Pelvis CT 01/06/22 13:21 IMPRESSION: Cholelithiasis with stone remaining at the gallbladder neck. Mild inflammatory changes surrounding the gallbladder. This remains concerning for cholecystitis. Otherwise no acute finding in the abdomen or pelvis. Abdominal wall defect remains with herniation of a portion of the stomach. This is unchanged. Fleischner guidelines were followed. Head CT 01/06/22 13:21 IMPRESSION: No acute intracranial pathology. Chronic changes of left-sided craniotomy with underlying encephalomalacia. Chest X-Ray 01/06/22 22:08 IMPRESSION: Hypoinflated lungs with increasing bibasilar atelectasis. Chest X-Ray 01/07/22 01:20 IMPRESSION: Right IJ central line tip in the region of the cavoatrial junction. Low lung volumes with somewhat streaky bibasilar opacities which may represent atelectasis. Abscess Drainage CT 01/07/22 13:15 IMPRESSION: Placement of 8.5 Bengali cholecystostomy tube as described. Mental Status Exam Mental Status Exam Narrative: Pt is in her chair in her room. NAD, comfortable, smiles, laughs, responsive to dialogue. Appears older than stated age. When asked why she is here, she points to her abdomen and attempts to speak in phrases and facial gestures that are not readily able to be understood. Patient Appearance: Well Grooomed Patient Orientation: Person Level of Consciousness: Awake and Alert Patient Behavior: Appropriate, Dependent, Cooperative, Fatigued, Confused and Good Eye Contact Mood Description: Apprehensive Affect Description: Apprehensive Patient Cognition Impaired: Yes Ability to Follow Directions: Fair Speech Pattern: Slurred, Impoverished, Aphasic, Soft-Spoken and Mumbled Thought Content: positive for [place] Judgement: Poor Medications Medications Current Medications Acetaminophen (Acetaminophen 325 Mg Tablet) 650 mg PO Q6H PRN PRN Reason: Pain, Mild (Pain Scale 1-3) Last Admin: 01/16/22 09:11 Dose: 650 mg Documented by: Calcium Carbonate (Calcium Carbonate 750 Mg Tab.Chew) 750 mg PO Q8H PRN PRN Reason: Heartburn Clozapine (Clozapine 100 Mg Tablet) 100 mg PO BEDTIME [facility] Last Admin: 01/17/22 20:50 Dose: 100 mg Documented by: Haloperidol Lactate (Haloperidol Lactate 5 Mg/Ml Vial) 2 mg IVPUSH Q4H PRN PRN Reason: agitation Heparin Sodium (Porcine) (Heparin Sodium,Porcine 5,000 Unit/Ml Vial) 5,000 unit SUBCUT Q8H [facility] Last Admin: 01/18/22 09:51 Dose: 5,000 unit Documented by: Lamotrigine (Lamotrigine 100 Mg Tablet) 150 mg PO BID [facility] Last Admin: 01/18/22 09:51 Dose: 150 mg Documented by: Ondansetron HCl (Ondansetron Hcl 4 Mg/2 Ml Vial) 4 mg IVPUSH Q4H PRN PRN Reason: Nausea Last Admin: 01/13/22 18:30 Dose: 4 mg Documented by: Oxycodone HCl (Oxycodone Hcl Immed Release 5 Mg Tablet) 5 mg PO Q4H PRN PRN Reason: Pain, Moderate (Pain Scale 4-6 Last Admin: 01/17/22 10:16 Dose: 5 mg Documented by: Sodium Chloride (0.9 % Sodium Chloride Flush 3 Ml Syringe) 3 ml IVFLUSH QSHIFT [facility] Last Admin: 01/18/22 09:51 Dose: 3 ml Documented by: Sodium Chloride (Sodium Chloride 0.65 % Nasal 44 Ml Sprbtl) 1 spray NOSTRIL-B Q8H PRN PRN Reason: Nasal Congestion Allergies Allergies Allergy/AdvReac Type Severity Reaction Status Date / Time No Known Allergies Allergy Verified 12/23/21 17:09 Assessment & Plan Assessment & Plan (1) Disruptive mood dysregulation disorder: Status: Acute Code(s): F34.81 - Disruptive mood dysregulation disorder (2) Delusional disorder: Status: Acute Code(s): F22 - Delusional disorders (3) Obsessive compulsive disorder: Status: Acute Code(s): F42.9 - Obsessive-compulsive disorder, unspecified Plan 62 yo female, resident of [facility], s/p TBI with a reported history of mood dysregulation, psychosis and obsessive compulsive sx. Admitted with acute cholecystitis, s/p cholecystectomy, septic shock with abnormal LFT elevation. Team requests psychiatric medication options for Lamictal 150 mg bid, Clozapine 100 mg HS and Haldol 2 mg IV q4h prn. Paliperidone 4 mg would be the equivalent to Clozaril 100 mg with 32% hepatic metabolism and 23hour half-life. Literature suggests a 4 week taper-titration of 1.5 mg increase and 25 mg decrease of Clozapine to assess ongoing tolerability. Low dose Olanzapine, Gabapentin could also be considered. Suggest 1.Paliperidone 1.5 mg a.m. for 7 days to assess tolerance and ability to proceed with a schedule of cross titration. 2. Continue Lamictal at this time. A 25% decrease is suggested in the literature for moderate hepatic impairment which may be possible if Paliperidone is tolerated without adverse effect. I spent minutes with the patient and/or on the patient floor today, greater than?50% of which was spent counseling/coordinating care.
[2022-01-18] MEDS: cloZAPine 100 MG TABLET PO (21:09)
[2022-01-19 03:02] VITALS: BP 132/63; PULSE 90; RESP 16; TEMP 36.2; O2SAT 95
[2022-01-19] MEDS: Heparin Sodium,Porcine 5,000 UNIT/ML VIAL 5000 UNIT SUBCUT ×3 (04:15→18:43)
[2022-01-19 06:09] LABS: Neut%MD 64.5 %; Neutrophils Absolute Auto 4.9 x10*3/uL (2.0-8.3); WBCANC 7.6 X10*3/uL
[2022-01-19 07:49] VITALS: BP 109/51; PULSE 90; RESP 15; TEMP 36; O2SAT 96
[2022-01-19] MEDS: lamoTRIgine 100 MG TABLET 150 MG PO ×2 (07:59→20:38)
[2022-01-19] MEDS: 0.9 % Sodium Chloride Flush 3 ML SYRINGE IVFLUSH ×2 (07:59→16:13)
--- NOTE | 2022-01-19 08:36 | P.PNIM_ITS ---
Subjective Subjective Date of Service: 01/19/22 Interval History: Elevated LFT Review of Systems patient seen with staff: resting comfortably walked a little to chair with 1 assist, has soarness at site of incision no right upper quadrant abdominal pain no overnight issues , no fevers seems more awake Physical Exam Vital Signs: Vital Signs: Last Vital Signs Temp 96.8 F 01/19/22 07:49 Pulse 90 01/19/22 07:49 Resp 15 01/19/22 07:49 BP 109/51 L 01/19/22 07:49 Pulse Ox 96 01/19/22 07:49 Oxygen Flow Rate 1.5 01/18/22 16:00 BMI result Body Mass Index 27.3 General?awake, alert, no acute distress.? Neck? supple no JVD.? CVS? regular rate rhythm, [id number] Chest: Fair air entry, no wheezing or rales. GI: soft, milddistended, mild tenderness to palpation, sutures in place, incision dry and clean, BS present. Extremities no edema. Neuro nonfocal, moving all 4 extremity, speech clear. Skin no rash ? Objective Data Active Medications Acetaminophen (Acetaminophen 325 Mg Tablet) 650 mg PO Q6H PRN PRN Reason: Pain, Mild (Pain Scale 1-3) Last Admin: 01/16/22 09:11 Dose: 650 mg Documented by: MARÍA Calcium Carbonate (Calcium Carbonate 750 Mg Tab.Chew) 750 mg PO Q8H PRN PRN Reason: Heartburn Clozapine (Clozapine 100 Mg Tablet) 100 mg PO BEDTIME REPLACED BY [facility] Last Admin: 01/18/22 21:09 Dose: 100 mg Documented by: RHINA Haloperidol Lactate (Haloperidol Lactate 5 Mg/Ml Vial) 2 mg IVPUSH Q4H PRN PRN Reason: agitation Heparin Sodium (Porcine) (Heparin Sodium,Porcine 5,000 Unit/Ml Vial) 5,000 unit SUBCUT Q8H REPLACED BY [facility] Last Admin: 01/19/22 04:15 Dose: 5,000 unit Documented by: RHINA Lamotrigine (Lamotrigine 100 Mg Tablet) 150 mg PO BID REPLACED BY [facility] Last Admin: 01/19/22 07:59 Dose: 150 mg Documented by: JAKUB Ondansetron HCl (Ondansetron Hcl 4 Mg/2 Ml Vial) 4 mg IVPUSH Q4H PRN PRN Reason: Nausea Last Admin: 01/13/22 18:30 Dose: 4 mg Documented by: MARÍA Oxycodone HCl (Oxycodone Hcl Immed Release 5 Mg Tablet) 5 mg PO Q4H PRN PRN Reason: Pain, Moderate (Pain Scale 4-6 Last Admin: 01/17/22 10:16 Dose: 5 mg Documented by: MARÍA Sodium Chloride (0.9 % Sodium Chloride Flush 3 Ml Syringe) 3 ml IVFLUSH QSHIFT PRIYANKA Last Admin: 01/19/22 07:59 Dose: 3 ml Documented by: JAKUB Sodium Chloride (Sodium Chloride 0.65 % Nasal 44 Ml Sprbtl) 1 spray NOSTRIL-B Q8H PRN PRN Reason: Nasal Congestion Labs CBC & Chem 7: 01/15/22 06:59 01/15/22 06:59 Labs: Laboratory Results - last 24 hr 01/18/22 01/19/22 11:32 05:41 Absolute Neuts (auto) 4.9 Total Bilirubin 1.2 H Direct Bilirubin 0.6 H AST 334 H ALT 251 H Alkaline Phosphatase 381 H Total Protein 5.7 L Albumin 3.3 L Assessment and Plan (1) Biliary calculus with obstruction without cholecystitis: Status: Acute (2) Abnormal LFTs: Status: Acute Plan 62-year-old lady with underlying history of TBI, dementia, delusional disorder, [facility] of [facility], with recent admission to [facility] on 12/22/2021 through 01/05/2022 for pneumonia also evaluated, by General surgery, for impacted cystic stone and treated conservatively. Discharged on 01/05/2022, readmitted on 01/06/2022 ,status post cholecystostomy on 01/07/2022. Hospital course significant for septic shock requiring initiation of pressor levi pport and transferred to the intensive care unit. Evaluated by General surgery and being planned for cholecystectomy. 1. Biliary calculus with obstruction without cholecystitis status post laparoscopic cholecystectomy and repair of large incisional hernia POD #5 Good pain control, normal BC, no fever , tolerating regular diet LFTs remains elevated slight bump in liver enzymes this morning, question related to multiple medications including Pepcid, omeprazole, lamotrigine,and clozaril, Continue analgesics, wean oxygen as tolerated Out of bed to chair, deep breathing exercise Seen by surgery they recommend outpatient follow-up with Dr. Pollard in 2 weeks 2.TBI/ dementia unspecified -continue Clozaril/Lamictal and as needed Haldol, was on Abilify and citalopram prior to admission. will d/w psych if needed medication adjustment . 3. Elevated LFTs Persistent elevated LFT, did not improved after cholecystectomy Normal hepatitis serology, antimitochondrial, anti smooth muscle antibody negative, CT abdomen showed normal-appearing liver, no evidence of acute cholecystitis intraoperatively likely related to multiple medication, stopped Pepcid, Prilosec, will consult psych for medication adjustment for Lamictal and clozaril, since can cause hepatotoxicity GI reconsulted for elevated Lft's. 4. Acute hypoxic respiratory failure on oxygen, not on home O2 likely due to atelectasis, will gradually wean oxygen to keep finger oximetry 94%,now on 1.5 liters, encourage deep breathing exercises, difficulty to learn to use incentive spirometery. Full code DVT prophylaxis on Lovenox need continued inpatient hospitalization since s/p cholecystectomy with worsening LFTs need psych input and GI evaluation Quality Stroke Does the patient have a stroke diagnosis?: No VTE Prior VTE?: No VTE Risk Level:: Medical - moderate - high VTE Device Contraindication: Treatment Not Indicated VTE Drug Contraindication: N/A - Med Ordered
--- NOTE | 2022-01-19 10:16 | P.CNGI_ITS ---
History of Present Illness Data of Consult Service Date: 01/19/22 Requesting physician: Carmella Delacruz Primary Care Provider: Christian Hicks DO HPI Reason for consult: abn LFT 62-year-old lady with hx of TBI, dementia, delusional disorder, who I am seeing for assessment for abn LFT. Limited hx from patient to mental health issues and dysphasia I had initially seen her for in patient stay 12/22/2021 through 01/05/2022 fro abn LFT. she had a pos HIDA scan suggestive of cystic duct obstruction. She was clinically well and sent home, but readmitted 01/06/22 fro septic shock and was in the ICU for pressor support. she eventually had a choleystectomy and GB noted to be full of stones. Pathc with chronic cholecystitis with stone noted lodged in neck of GB. Since then her LFT have remained elevated, most recent Bili 0.8, AST 343, ALT 227, alk p: 322. Hep A,B,C serologies neg TTG neg SMA neg Igg was nml ceruloplasmin nml LKM negative BNP nml A1AT- not done ferritin was raised but iron sat nml Review of Systems Review of Systems: Yes Unobtainable due to mental status PMFSH Past Medical History Medical History Acute calculous cholecystitis Aphasia Chondrocostal junction syndrome Delusional disorder Dementia Disruptive mood dysregulation disorder Gallstones GERD (gastroesophageal reflux disease) Hx of migraine headaches Hyperlipidemia Myopia Obsessive compulsive disorder Raynauds syndrome Traumatic brain injury Family History Family History Maternal Grandmother Breast cancer Family history: reviewed and not pertinent Surgical History Surgical History History of incisional hernia repair Hx laparoscopic cholecystectomy Social History Social History Household Members: Caregiver Housing: Assisted Living Facility Do you presently have visiting nurse or other home services: No Unable to assess alcohol history related to: Unable to respond Patient Tobacco Use Status: Never used Tobacco e-Cigarette/Vaping Use: Never Used Use of substances other than those prescribed or required for medical reasons: Unable to respond Currently Displaying Signs/Symptoms of Drug Intoxication Withdrawal: No Spiritual Healthcare Practices: UNKNOWN Rastafari Healthcare Practices: UNKNOWN Cultural Healthcare Practices: UNKNOWN Are you DNR?: Yes Advance Directives: Yes Advance Directives on File: Yes Advance Directives Date on File: 12/03/21 Do you have thoughts of harming others: None Do you have a plan to hurt others: No Plan Recently lost weight without trying: Unsure Nutrition Risks: On aspiration precautions and Poor intake 0-25% >4 days Patient : No : No Poor oral hygiene: No service: No Current occupational status: disabled Meds Allergies Allergy/AdvReac Type Severity Reaction Status Date / Time No Known Allergies Allergy Verified 12/23/21 17:09 Active Medications: Current Medications Acetaminophen (Acetaminophen 325 Mg Tablet) 650 mg PO Q6H PRN PRN Reason: Pain, Mild (Pain Scale 1-3) Last Admin: 01/16/22 09:11 Dose: 650 mg Documented by: Calcium Carbonate (Calcium Carbonate 750 Mg Tab.Chew) 750 mg PO Q8H PRN PRN Reason: Heartburn Clozapine (Clozapine 100 Mg Tablet) 100 mg PO BEDTIME [facility] Last Admin: 01/18/22 21:09 Dose: 100 mg Documented by: Haloperidol Lactate (Haloperidol Lactate 5 Mg/Ml Vial) 2 mg IVPUSH Q4H PRN PRN Reason: agitation Heparin Sodium (Porcine) (Heparin Sodium,Porcine 5,000 Unit/Ml Vial) 5,000 unit SUBCUT Q8H [facility] Last Admin: 01/19/22 04:15 Dose: 5,000 unit Documented by: Lamotrigine (Lamotrigine 100 Mg Tablet) 150 mg PO BID [facility] Last Admin: 01/19/22 07:59 Dose: 150 mg Documented by: Ondansetron HCl (Ondansetron Hcl 4 Mg/2 Ml Vial) 4 mg IVPUSH Q4H PRN PRN Reason: Nausea Last Admin: 01/13/22 18:30 Dose: 4 mg Documented by: Oxycodone HCl (Oxycodone Hcl Immed Release 5 Mg Tablet) 5 mg PO Q4H PRN PRN Reason: Pain, Moderate (Pain Scale 4-6 Last Admin: 01/17/22 10:16 Dose: 5 mg Documented by: Sodium Chloride (0.9 % Sodium Chloride Flush 3 Ml Syringe) 3 ml IVFLUSH QSHIFT [facility] Last Admin: 01/19/22 07:59 Dose: 3 ml Documented by: Sodium Chloride (Sodium Chloride 0.65 % Nasal 44 Ml Sprbtl) 1 spray NOSTRIL-B Q8H PRN PRN Reason: Nasal Congestion Home Medications Medication Instructions Recorded Confirmed Last Taken Type acetaminophen 325 mg tablet 650 mg PO Q6H PRN 03/17/21 01/06/22 Unknown History famotidine 40 mg tablet 40 mg PO DAILY 03/17/21 01/06/22 01/05/22 History ibuprofen 600 mg tablet 600 mg PO Q8H PRN 03/17/21 01/06/22 Unknown History loperamide 2 mg capsule 2 mg PO Q6H PRN 03/17/21 01/06/22 Unknown History omeprazole 20 mg capsule,delayed 20 mg PO DAILY 03/17/21 01/06/22 01/05/22 History release sennosides 8.6 mg tablet (Natural 8.6 mg PO Q24H PRN 03/17/21 01/06/22 Unknown History Senna Laxative) sodium chloride 0.65 % nasal spray 1 spray INTRANASAL Q8H PRN 03/17/21 01/06/22 Unknown History aerosol ([place] Nasal) aripiprazole 5 mg tablet (Abilify) 2.5 mg PO DAILY 12/22/21 01/06/22 01/05/22 History calcium carbonate 500 mg calcium 500 mg PO Q8H PRN 12/22/21 01/06/22 Unknown History (1,250 mg) chewable tablet cetirizine 10 mg tablet 10 mg PO DAILY 12/22/21 01/06/22 Unknown History citalopram 20 mg tablet 20 mg PO DAILY 12/22/21 01/06/22 01/05/22 History clozapine 100 mg tablet (Clozaril) 100 mg PO BEDTIME 12/22/21 01/06/22 01/05/22 History lamotrigine 150 mg tablet 150 mg PO BID 12/22/21 01/06/22 01/05/22 History oxycodone-acetaminophen 5 mg-325 1 tab PO Q4H PRN 12/22/21 01/06/22 Unknown History mg tablet Physical Exam Vital Signs: Vital Signs: Last Vital Signs Temp 96.8 F 01/19/22 07:49 Pulse 90 01/19/22 07:49 Resp 15 01/19/22 07:49 BP 109/51 L 01/19/22 07:49 Pulse Ox 96 01/19/22 07:49 Oxygen Flow Rate 1.5 01/18/22 16:00 BMI result Body Mass Index 27.3 EXAM: GENERAL: The patient is well developed and nontoxic, relaxed and [id number] ap pearing VITAL SIGNS:see workflow HEENT: Nonicteric sclerae, PERRLA, EOMI. Oropharynx clear. Moist mucous membranes. Conjunctivae appear well perfused. No thyroid mass. CHEST: Chest wall is nontender. HEART: Regular rate and rhythm without murmurs. LUNGS: Clear to auscultation bilaterally. ABDOMEN: Soft, positive bowel sounds, nontender, no organomegaly.no flank tenderness SKIN: No rash, no excessive bruising, petechiae, or purpura. NEUROLOGIC: Cranial nerves II-XII intact without motor/sensory deficit. dysphasia, limited speech Results Labs CBC & Chem 7: 01/15/22 06:59 01/15/22 06:59 Labs: Liver Function 01/18/22 Range/Units 11:32 Total Bilirubin 1.2 H (0.0-1.0) mg/dL Direct Bilirubin 0.6 H (0.0-0.5) mg/dL AST 334 H (5-31) U/L ALT 251 H (0-31) U/L Alkaline Phosphatase 381 H (39-117) U/L Albumin 3.3 L (3.5-5.0) g/dL Microbiology Microbiology Results: Microbiology 01/07/22 11:45 Gallbladder Gram Stain - Final 01/07/22 11:45 Gallbladder Routine Culture - Final No growth after 2 days 01/07/22 11:45 Gallbladder Anaerobic Culture - Final NO GROWTH AFTER 5 DAYS 01/06/22 21:55 Blood - Venous Blood Culture - Final No growth after 5 days. 01/06/22 21:59 Blood - Venous Blood Culture - Final No growth after 5 days. 01/06/22 11:25 Blood - Venous Blood Culture - Final No growth after 5 days. 01/06/22 11:24 Blood - Venous Blood Culture - Final No growth after 5 days. Assessment and Plan (1) Abnormal LFTs: Status: Acute Plan 1/ Abn LFT persisting despite cholecystectomy, DDX: retained bile sludge or stones in CBD, DILI from antibiotics or psych meds, ischemic hepatopathy with slow recovery PLAN: 1/ Repeat US to look for sludge or stones in CBD, unfortunately there were issues with compliance for MRCP before 2/ check A1AT. ladolase and CPK 3/ avoid hepatotoxic drugs if possble, clozaril can be associated with hepatocellular LFT elevation, which usu resolves eventually, but if nt then may have ti be chnaged. Lamotrigine is a rare cause of liver failure, usu assoc with eosinophilia and DRESS type syndrome 4/ if LFT rise and no improvement then may need liver bx Procedures Date of Service Date of Service: 01/19/22
[2022-01-19 12:00] VITALS: BP 121/60; PULSE 100; RESP 15; TEMP 36.1; O2SAT 97
[2022-01-19] MEDS: oxyCODONE HCl Immed Release 5 MG TABLET 2.5 MG PO (13:28)
[2022-01-19 13:32] LABS: Alanine Aminotransferase 234 U/L (0-31); Albumin Level 3.5 g/dL (3.5-5.0); Alkaline Phosphatase 393 U/L (39-117); Aspartate Amino Transferase 272 U/L (5-31); Bilirubin Direct 0.5 mg/dL (0.0-0.5); Bilirubin Total 0.9 mg/dL (0.0-1.0)
--- NOTE | 2022-01-19 14:38 | MHC.CM.PN ---
PATIENT UPDATES SENT TO [facility] [place]. CASE MANAGEMENT CONTINUING TO FOLLOW FOR PATIENT RETURN TO FACILITY.
[2022-01-19 15:39] VITALS: BP 115/60; PULSE 87; RESP 18; TEMP 37.1; O2SAT 97
[2022-01-19 20:00] VITALS: BP 116/61; PULSE 86; RESP 18; TEMP 36.3; O2SAT 97
[2022-01-19] MEDS: cloZAPine 100 MG TABLET PO (20:38)
[2022-01-19 23:44] VITALS: BP 112/58; PULSE 72; RESP 17; TEMP 36.3; O2SAT 97
[2022-01-20] MEDS: 0.9 % Sodium Chloride Flush 3 ML SYRINGE IVFLUSH ×4 (00:44→20:03)
[2022-01-20] MEDS: Heparin Sodium,Porcine 5,000 UNIT/ML VIAL 5000 UNIT SUBCUT ×3 (03:38→18:41)
[2022-01-20 04:00] VITALS: BP 118/58; PULSE 80; RESP 18; TEMP 36.3; O2SAT 96
[2022-01-20 06:26] LABS: Albumin Level 3.2 g/dL (3.5-5.0)
[2022-01-20 06:27] LABS: Alanine Aminotransferase 202 U/L (0-31); Alkaline Phosphatase 350 U/L (39-117); Aspartate Amino Transferase 230 U/L (5-31); Bilirubin Direct 0.6 mg/dL (0.0-0.5); Total Protein 5.5 g/dL (6.5-8.0)
[2022-01-20 07:41] VITALS: BP 101/53; PULSE 81; RESP 17; TEMP 36.2; O2SAT 99
[2022-01-20] MEDS: lamoTRIgine 100 MG TABLET 150 MG PO ×2 (08:55→20:02)
[2022-01-20 11:41] VITALS: BP 115/54; PULSE 92; RESP 16; TEMP 36.4; O2SAT 98
--- NOTE | 2022-01-20 12:08 | P.PNIM_ITS ---
Subjective Subjective Date of Service: 01/20/22 Interval History: No acute issues overnight. Somnolent but arousable this a.m. Review of Systems Unable to secondary to confusion Physical Exam Vital Signs: Vital Signs: Last Vital Signs Temp 97.5 F 01/20/22 11:41 Pulse 92 01/20/22 11:41 Resp 16 01/20/22 11:41 BP 115/54 L 01/20/22 11:41 Pulse Ox 98 01/20/22 11:41 Oxygen Flow Rate 1.5 01/18/22 16:00 BMI result Body Mass Index 27.3 Const: Other: Awake confused (at baseline.. Known to account underwriter) Resp: Other: Clear to auscultation bilaterally no rales rhonchi or wheezes Cardio: Other: No S4; positive S1-S2; no S3 murmurs rubs or gallops GI: Other: Soft nontender nondistended with normoactive bowel sounds. Suture line clean dry and intact Extrem: Other: No edema bilaterally Objective Data Active Medications Acetaminophen (Acetaminophen 325 Mg Tablet) 650 mg PO Q6H PRN PRN Reason: Pain, Mild (Pain Scale 1-3) Last Admin: 01/16/22 09:11 Dose: 650 mg Documented by: MARÍA Calcium Carbonate (Calcium Carbonate 750 Mg Tab.Chew) 750 mg PO Q8H PRN PRN Reason: Heartburn Clozapine (Clozapine 100 Mg Tablet) 100 mg PO BEDTIME [facility] Last Admin: 01/19/22 20:38 Dose: 100 mg Documented by: ERNESTINA Haloperidol Lactate (Haloperidol Lactate 5 Mg/Ml Vial) 2 mg IVPUSH Q4H PRN PRN Reason: agitation Heparin Sodium (Porcine) (Heparin Sodium,Porcine 5,000 Unit/Ml Vial) 5,000 unit SUBCUT Q8H [facility] Last Admin: 01/20/22 11:57 Dose: 5,000 unit Documented by: MILLA Lamotrigine (Lamotrigine 100 Mg Tablet) 150 mg PO BID [facility] Last Admin: 01/20/22 08:55 Dose: 150 mg Documented by: MILLA Ondansetron HCl (Ondansetron Hcl 4 Mg/2 Ml Vial) 4 mg IVPUSH Q4H PRN PRN Reason: Nausea Last Admin: 01/13/22 18:30 Dose: 4 mg Documented by: MARÍA Oxycodone HCl (Oxycodone Hcl Immed Release 5 Mg Tablet) 2.5 mg PO Q4H PRN PRN Reason: Pain, Moderate (Pain Scale 4-6 Last Admin: 01/19/22 13:28 Dose: 2.5 mg Documented by: JAKUB Sodium Chloride (0.9 % Sodium Chloride Flush 3 Ml Syringe) 3 ml IVFLUSH QSHIFT [facility] Last Admin: 01/20/22 08:59 Dose: 3 ml Documented by: MILLA Sodium Chloride (Sodium Chloride 0.65 % Nasal 44 Ml Sprbtl) 1 spray NOSTRIL-B Q8H PRN PRN Reason: Nasal Congestion Labs CBC & Chem 7: 01/15/22 06:59 01/15/22 06:59 Labs: Laboratory Results - last 24 hr 01/19/22 01/20/22 13:05 05:36 Total Bilirubin 0.9 1.0 Direct Bilirubin 0.5 0.6 H AST 272 H 230 H ALT 234 H 202 H Alkaline Phosphatase 393 H 350 H Total Protein 6.0 L 5.5 L Albumin 3.5 3.2 L Assessment and Plan (1) Acute calculous cholecystitis: Status: Acute (2) Abnormal LFTs: Status: Acute (3) Traumatic brain injury: Status: Acute (4) Dementia: Status: Acute Plan 62-year-old female with known cystic duct obstruction by HIDA scan ..S/P percutaneous drain..S/P CCY 01/14. Persistant elevation of LFTs 1. Biliary calculus with obstruction S/P CCY -LFTs improved but not normalized -US liver to r/out sludge...may require BX -stable from surgical perspective per notes 2.TBI -continue outpatient therapies -continue Clozaril/Lamictal as ordered -adjust as indicated Full code Lovenox Patient will require ongoing hospitalization for LFT monitoring/US and possible Bdx Quality Stroke Does the patient have a stroke diagnosis?: No VTE Prior VTE?: No VTE Risk Level:: Medical - moderate - high VTE Device Contraindication: Treatment Not Indicated VTE Drug Contraindication: N/A - Med Ordered
[2022-01-20 15:04] VITALS: BP 131/56; PULSE 88; RESP 18; TEMP 37.1; O2SAT 97
[2022-01-20 19:14] VITALS: BP 111/61; PULSE 95; RESP 18; TEMP 37.1; O2SAT 94
[2022-01-20] MEDS: cloZAPine 100 MG TABLET PO (20:02)
[2022-01-20 23:19] VITALS: BP 140/60; PULSE 95; RESP 18; TEMP 36.9; O2SAT 93
[2022-01-21] MEDS: Heparin Sodium,Porcine 5,000 UNIT/ML VIAL 5000 UNIT SUBCUT ×2 (02:22→11:06)
[2022-01-21 03:47] VITALS: BP 102/56; PULSE 89; RESP 18; TEMP 36.6; O2SAT 97
[2022-01-21 05:39] LABS: MANUAL DIFF FLAG NO
[2022-01-21 05:46] LABS: Basophils Percent Auto 0.3 % (0-2); Eosinophils Absolute Auto 0.9 X10*3/uL (0.0-0.4); Eosinophils Percent Auto 8.8 % (0-4); Hematocrit 33.6 % (37.0-47.0); Hemoglobin 10.8 g/dl (12.0-16.0); Imm Gran Abs Auto 0.04 X10*3/uL (0.00-0.03); Imm Gran Pct Auto 0.4 % (0.0-0.4); Lymphocytes Absolute Auto 1.6 X10*3/uL (1.2-4.9); Lymphocytes Percent Auto 16.1 % (20-40); Mean Corpuscular HGB Conc 32.1 g/dl (31.0-35.0); Mean Corpuscular Hemoglobin 29.1 pg (27.0-33.0); Mean Corpuscular Volume 90.6 fL (80.0-98.0); Mean Platelet Volume 9.9 fL (9.4-12.3); Monocytes Absolute Auto 0.5 X10*3/uL (0.1-1.2); Monocytes Percent Auto 5.5 % (2-11); Neutrophils Absolute Auto 6.7 x10*3/uL (2.0-8.3); Neutrophils Percent Auto 68.9 % (45-73); Platelet Count 357 X10*3/uL (160-400); Red Blood Count 3.71 X10*6/uL (4.20-5.50); Red Cell Distribution Width 15.6 % (11.0-16.0); White Blood Count 9.7 X10*3/uL (4.8-10.8)
[2022-01-21 06:00] VITALS: BMI 25.8
[2022-01-21 06:08] LABS: Alanine Aminotransferase 183 U/L (0-31); Albumin Level 3.2 g/dL (3.5-5.0); Alkaline Phosphatase 341 U/L (39-117); Anion Gap 13 (12-20); Aspartate Amino Transferase 192 U/L (5-31); Bilirubin Total 0.8 mg/dL (0.0-1.0); Blood Urea Nitrogen 9 mg/dL (9-16); Calcium 8.9 mg/dL (8.4-10.2); Carbon Dioxide 29 mmol/L (22-29); Chloride 107 mmol/L (96-108); Creatinine Clr Calc Pharmacy 81.9; Estimated Glomerular Filt Rate > 60; Glucose Fasting 112 mg/dL (60-99); Potassium 2.9 mmol/L (3.3-5.1); Sodium 146 mmol/L (135-145); Total Protein 5.5 g/dL (6.5-8.0)
[2022-01-21 07:16] VITALS: BP 105/49; PULSE 82; RESP 18; TEMP 36.6; O2SAT 94
[2022-01-21] MEDS: lamoTRIgine 100 MG TABLET 150 MG PO (07:46)
[2022-01-21] MEDS: 0.9 % Sodium Chloride Flush 3 ML SYRINGE IVFLUSH (07:46)
[2022-01-21] MEDS: Potassium Chloride/H20 10 MEQ/100 ML PIGGYBACK 100 MEQ IV (09:37)
[2022-01-21] MEDS: Morphine Sulfate 2 MG/ML CARTRIDGE IVPUSH (11:06)
[2022-01-21 11:38] VITALS: BP 110/55; PULSE 91; RESP 18; TEMP 36.9; O2SAT 95
[2022-01-21 12:49] LABS: COVID-19 Test Negative (Negative); IDNOW Serial# 16C4AD1C
--- NOTE | 2022-01-21 12:54 | PM.DS ---
DS: Providers Provider Date of Service: 01/21/22 Date of admission: 01/07/22 08:59 Date of discharge: 01/21/22 Primary care physician: Christian Hicks DO Consults: 01/07/22 06:30 Consult to General Surgery Routine Consulting Provider: Dariel Pollard Reason for consultation: sepsiis Has provider been notified: Yes 01/18/22 11:10 Consult to Psychiatry Routine Consulting Provider: Jeanna Cowan Reason for consultation: Adjust psych meds due to increase LFT 01/19/22 08:38 Consult to Gastroenterology Routine Consulting Provider: Jeffrey Nuno Reason for consultation: persistently elevated lft's Has provider been notified: No DS: Diagnosis Discharge Diagnosis (1) Acute calculous cholecystitis: Status: Acute (2) Abnormal LFTs: Status: Acute (3) Traumatic brain injury: Status: Acute (4) Dementia: Status: Acute DS: Summary Hospital Course Hospital Course: 62-year-old female with known cystic duct obstruction by HIDA scan last admission presents with acute alteration in mental status this morning from [facility].? CT scan continues to demonstrate cholelithiasis with stone in the gallbladder neck; exam however is totally benign.? Admitted to hospital the an on evening of admission 01/06 developed a fever and hypotension for which she was transferred to ICU. She was volume resuscitated and placed on pressors. Source of sepsis thought to be goal bag. On 01/07 underwent percutaneous drainage of call bag and antibiotics were continued. She was weaned off pressors and maintain on antibiotics. On 01/14, she underwent a laparoscopic cholecystectomy without incident. Her LFTs continue to trend down however at a sluggish pace. On 01/20 she underwent abdominal ultrasound which failed to demonstrate any acute pathologies. On the date of discharge her her LFTs continued to trend down and believe she is medically acceptable to transfer back to [facility]. She will have her liver function tests followed weekly and will follow-up with Dr. Pollard in the office Time Spent with Patient Time attestation: Total time spent providing and/or coordinating discharge services: Discharge coordination time: Greater than 30 minutes Quality: Safe Use of Opioids Does Pt have an Active Cancer Diagnosis on the Problem List?: No Quality: Stroke Does the patient have a stroke diagnosis?: No Physical Exam Vital Signs: Vital Signs: Last Vital Signs Temp 98.5 F 01/21/22 11:38 Pulse 91 01/21/22 11:38 Resp 18 01/21/22 11:38 BP 110/55 L 01/21/22 11:38 Pulse Ox 95 01/21/22 11:38 Oxygen Flow Rate 1.5 01/18/22 16:00 BMI result Body Mass Index 25.8 Const: Other: Awake confused (at baseline.. Known to contract technical writer) Resp: Other: Clear to auscultation bilaterally no rales rhonchi or wheezes Cardio: Other: No S4; positive S1-S2; no S3 murmurs rubs or gallops GI: Other: Soft nontender nondistended with normoactive bowel sounds. Suture line clean dry and intact Extrem: Other: No edema bilaterally DS: Data Data Completed and Pending Completed studies during hospitalization [Text1]: Pending at discharge 01/14/22 11:33 Surgical [PTH] Routine Labs on day of discharge: Laboratory Results - last 24 hr 01/21/22 01/21/22 01/21/22 05:25 05:25 12:05 WBC 9.7 RBC 3.71 L Hgb 10.8 L Hct 33.6 L MCV 90.6 MCH 29.1 MCHC 32.1 RDW 15.6 Plt Count 357 MPV 9.9 Immature Gran % (Auto) 0.4 Neut % (Auto) 68.9 Lymph % (Auto) 16.1 L [place] % (Auto) 5.5 Eos % (Auto) 8.8 H Baso % (Auto) 0.3 Lymph # (Auto) 1.6 [place] # (Auto) 0.5 Eos # (Auto) 0.9 H Baso # (Auto) 0.0 Abs Immat Gran (auto) 0.04 H Absolute Neuts (auto) 6.7 Absolute Nucleated RBC 0.000 Nucleated RBC % (auto) 0.0 Sodium 146 H Potassium 2.9 L D Chloride 107 Carbon Dioxide 29 Anion Gap 13 BUN 9 Creatinine 0.71 Estim Creat Clear Calc 81.9 Estimated GFR > 60 Fasting Glucose 112 H Calcium 8.9 Total Bilirubin 0.8 AST 192 H ALT 183 H Alkaline Phosphatase 341 H Total Protein 5.5 L Albumin 3.2 L COVID-19 (KO) Negative COVID-19 Clin Com See Note Discharge Plan Discharge Patient Disposition: Xfer [facility] Discharge Diagnosis: acute calculous cholecystitis Referrals: [facility] [Outside] - 1 Week Dariel Pollard MD [Physician] - 2 Weeks Christian Hicks DO [Primary Care Provider] - 1 Week Discharge Medications: New clozapine 100 mg Tablet 100 mg PO BEDTIME Qty: 30 0RF Continued lamotrigine 150 mg Tablet 150 mg PO BID 0RF cetirizine 10 mg Tablet 10 mg PO DAILY 0RF clozapine [Clozaril] 100 mg Tablet 100 mg PO BEDTIME 0RF oxycodone-acetaminophen 5-325 mg Tablet 1 tab PO Q4H PRN (Reason: Pain) 0RF citalopram 20 mg Tablet 20 mg PO DAILY 0RF calcium carbonate 500 mg calcium (1,250 mg) Tablet,Chewable 500 mg PO Q8H PRN (Reason: Heartburn) 0RF aripiprazole [Abilify] 5 mg Tablet 2.5 mg PO DAILY 0RF acetaminophen 325 mg tablet 650 mg PO Q6H PRN (Reason: Pain) 0RF famotidine 40 mg tablet 40 mg PO DAILY 0RF ibuprofen 600 mg tablet 600 mg PO Q8H PRN (Reason: Pain) 0RF loperamide 2 mg capsule 2 mg PO Q6H PRN (Reason: Diarrhea) 0RF sodium chloride [[place] Nasal] 0.65 % aerosol,spray 1 spray intranasal Q8H PRN (Reason: Nasal Congestion) 0RF omeprazole 20 mg capsule,delayed release(DR/EC) 20 mg PO DAILY 0RF sennosides [Natural Senna Laxative] 8.6 mg tablet 8.6 mg PO Q24H PRN (Reason: Constipation) 0RF Discharge Orders: Discharge Order (Routine); Ordered 01/21/22 Ordered By: Christian Hicks Diet: advance to usual diet Activity on Discharge: As tolerated Stand Alone Forms: Patient Portal Discharge page Care Plan Goals: Return to previous med regimen as prior to hospitalization Health Concerns: Follow-up with Dr. Andre is in office as scheduled Plan of Treatment: Weekly liver function tests x4 weeks along with CMP Assessment: See discharge summary
--- NOTE | 2022-01-21 13:38 | MHC.CM.PN ---
PATIENT TO RETURN TO [facility] [place] FOR [facility]. RN AND UNIT AWARE OF PLAN. IMM 4/2O IN CHART
[2022-01-21 14:55] VITALS: BP 115/56; PULSE 96; RESP 16; TEMP 36.5; O2SAT 96
== END 2022-01-21 16:22 | DRG 853 ==
LOC: HO.ED 14:16 → HO.EDOVER 15:46 → HO.ICU 23:42 → HO.IMC 01-11 13:57 → HO.S3 01-15 11:22
PROVIDERS: Hospitalist; Internal Medicine; Internal Medicine Cardiovascular Disease; Internal Medicine Pulmonary Disease; Physician Assistant; Radiology Diagnostic Radiology; Surgery; Admitting Provider Hospitalist; Emergency Provider Emergency Medicine Emergency Medical Services; PCP Hospitalist; Visit Provider Hospitalist
PROC: 0F9430Z Drainage of Gallbladder with Drainage Device, Percutaneous Approach (ICD-10-PCS; principal; 2022-01-07 10:00)
PROC: 0FT44ZZ Resection of Gallbladder, Percutaneous Endoscopic Approach (ICD-10-PCS; CPT 47562; principal; 2022-01-14 09:10)
DX: A41.9 Sepsis, unspecified organism (principal); R65.21 Severe sepsis with septic shock; J96.01 Acute respiratory failure with hypoxia; K80.51 Calculus of bile duct without cholangitis or cholecystitis with obstruction; F34.81 Disruptive mood dysregulation disorder; J98.11 Atelectasis; K80.63 Calculus of gallbladder and bile duct with acute cholecystitis with obstruction; K21.9 Gastro-esophageal reflux disease without esophagitis; F42.9 Obsessive-compulsive disorder, unspecified; F03.90 Unspecified dementia, unspecified severity, without behavioral disturbance, psychotic disturbance, mood disturbance, and anxiety; K66.0 Peritoneal adhesions (postprocedural) (postinfection); K43.9 Ventral hernia without obstruction or gangrene; Z87.01 Personal history of pneumonia (recurrent); Z80.3 Family history of malignant neoplasm of breast; Z87.820 Personal history of traumatic brain injury; Z20.822 Contact with and (suspected) exposure to COVID-19; Z79.899 Other long term (current) drug therapy
CPT/HCPCS: 36415; 70450; 71045; 74177; 75989; 76705; 80048; 80053; 80076; 81001; 82140; 82272; 83010; 83605; 83615; 83690; 83735; 83880; 84100; 84484; 85025; 85048; 85610; 85730; 86850; 86880; 86900; 86901; 87040; 87071; 87073; 87205; 87502; 87635; 88304; 93005; 96361; 96365; 99024; 99285; C1729; C1758; C1769; J0131; J0696; J1100; J1170; J1940; J2250; J2270; J2370; J2405; J2543; J3010; P9047; Q9967

== ENCOUNTER 2022-01-25 08:44 | Emergency (ER) | payer MEDICARE, SELFPAY ==
--- NOTE | ~2022-01-25 | XR_ITS ---
EXAMINATION: XR CHEST CLINICAL INFORMATION: Altered mental status COMPARISON: Chest x-ray 01/07/2022 TECHNIQUE: Frontal view of the chest was obtained. FINDINGS: Cardiac silhouette is stable in size. Hypoinflated lungs. Interval removal of right-sided jugular catheter. Interval development of patchy opacity of the left lower lung, nonspecific. Subtle linear opacity of the right lung base suggestive of atelectasis. No large pleural effusion. No pneumothorax. Degenerative changes of the spine. Surgical clips of the upper abdomen. XR/XR chest 1V IMPRESSION: Interval development of patchy opacity of the left lower lung. This is a nonspecific finding. This may represent atelectasis, however, developing infiltrate would also be within the differential. Clinical correlation is recommended.
--- NOTE | ~2022-01-25 | CT_ITS ---
EXAMINATION: CT HEAD WITHOUT CONTRAST CLINICAL INFORMATION: Slurred words, difficulty swallowing, altered mental status. COMPARISON: CT had 01/06/2022, 12/22/2021 TECHNIQUE: Contiguous axial imaging was performed from the skull base to vertex without intravenous administration of contrast. Additional 2-D coronal and sagittal reformatted images are generated on the CT workstation and uploaded to PACS. This CT examination was performed using dose optimization techniques as appropriate, variously including the following: *Automated exposure control *Adjustment of mA and/or kV according to patient size (this includes techniques or standardized protocols for targeted exams where dose is matched to indication/reason for exam; i.e. extremities or head) *Use of iterative reconstruction technique DLP: 676 mGy-cm FINDINGS: There are postsurgical changes with left lateral craniotomy defect and calvarial metallic plate. Encephalomalacia is present in the left temporal lobe and there are atrophic changes with mild prominence of the cortical sulci and fissures and cisterns. There is no intracranial hemorrhage, hematoma, or extra-axial fluid collection. The ventricles are normal in size. There is no hydrocephalus, edema, or mass effect. The cadet-white matter differentiation appears similar to prior exams. There is some periventricular white matter gliosis again seen. There is no visible acute territorial infarct or mass lesion. There is no pneumocephalus or orbital emphysema. The visualized sinuses and middle ears and mastoid air cells show no significant mucosal thickening. There are no air-fluid levels. CT/CT head/brain wo con IMPRESSION: -No acute intracranial abnormality. -Postsurgical changes, stable.
--- NOTE | 2022-01-25 08:50 | ED_ITS ---
HPI - Altered Mental Status General Chief Complaint: Altered Mental Status Stated Complaint: AMS FOR SEVERAL DAYS FROM SNF PER EMS Time Seen by Provider: 01/25/22 08:50 Source: patient and EMS Mode of arrival: EMS Limitations: altered mental status History of Present Illness MD complaint: altered mental status and decreased responsiveness Onset (ago): day(s) (?few) Timing confirmed by: caregiver Severity: moderate Consistency of symptoms: constant Context: other (recent illness - drooling, diff swallowing, no narcotics in last day or so, recent GB removal 01/14) Associated symptoms: denies other symptoms Related Data Home Medications Medication Instructions Recorded Confirmed acetaminophen 325 mg tablet 650 mg PO Q6H PRN 03/17/21 01/25/22 famotidine 40 mg tablet 40 mg PO DAILY 03/17/21 01/25/22 ibuprofen 600 mg tablet 600 mg PO Q8H PRN 03/17/21 01/25/22 loperamide 2 mg capsule 2 mg PO Q6H PRN 03/17/21 01/25/22 omeprazole 20 mg capsule,delayed 20 mg PO DAILY 03/17/21 01/25/22 release sennosides 8.6 mg tablet (Natural 8.6 mg PO Q24H PRN 03/17/21 01/25/22 Senna Laxative) sodium chloride 0.65 % nasal spray 1 spray INTRANASAL Q8H PRN 03/17/21 01/25/22 aerosol ([place] Nasal) aripiprazole 5 mg tablet (Abilify) 2.5 mg PO DAILY 12/22/21 01/25/22 calcium carbonate 500 mg calcium 500 mg PO Q8H PRN 12/22/21 01/25/22 (1,250 mg) chewable tablet cetirizine 10 mg tablet 10 mg PO DAILY 12/22/21 01/25/22 citalopram 20 mg tablet 20 mg PO DAILY 12/22/21 01/25/22 lamotrigine 150 mg tablet 150 mg PO BID 12/22/21 01/25/22 oxycodone-acetaminophen 5 mg-325 1 tab PO Q4H PRN 12/22/21 01/25/22 mg tablet bisacodyl 10 mg rectal suppository 10 mg ME DAILY PRN 01/25/22 01/25/22 ondansetron HCl 4 mg tablet 4 mg PO Q6H PRN 01/25/22 01/25/22 sodium phosphates 19 gram-7 118 ml ME DAILY PRN 01/25/22 01/25/22 gram/118 mL enema (Fleet Enema) Previous Rx's Medication Instructions Recorded clozapine 100 mg tablet 100 mg PO BEDTIME #30 tab 01/21/22 Allergies Allergy/AdvReac Type Severity Reaction Status Date / Time No Known Allergies Allergy Verified 12/23/21 17:09 Review of Systems Review of Systems: ROS unable to be obtained due to altered mental status [facility] Past Medical History Attestation statement: The following information was validated with the patient. Medical History Acute calculous cholecystitis Aphasia Chondrocostal junction syndrome Delusional disorder Dementia Disruptive mood dysregulation disorder Gallstones GERD (gastroesophageal reflux disease) Hx of migraine headaches Hyperlipidemia Myopia Obsessive compulsive disorder Raynauds syndrome Traumatic brain injury Surgical History History of incisional hernia repair Hx laparoscopic cholecystectomy Family History Family History Maternal Grandmother Breast cancer Social History Social History Household Members: Caregiver Housing: Assisted Living Facility Do you presently have visiting nurse or other home services: No Unable to assess alcohol history related to: Unable to respond Alcohol intake: never Patient Tobacco Use Status: Never used Tobacco e-Cigarette/Vaping Use: Never Used Advance Directives: No Advance Directives Information Provided: No Advance Directives Date on File: 12/03/21 service: No Current occupational status: disabled Physical Exam ED Vital Signs: Vital Signs - 24 hr 01/25/22 08:54 01/25/22 10:53 Temperature 97.5 F Pulse Rate 75 75 Respiratory Rate 16 16 Blood Pressure 123/62 124/79 Pulse Oximetry 96 97 BMI result Body Mass Index 27.4 Appearance: Alert. Oriented X1 (self). No acute distress. Eyes: Pupils equal, round and reactive to light. ENT: Pharynx - drooling slightly Neck: Normal inspection. Neck supple. CVS: Normal heart rate and rhythm. Pulses normal. Respiratory: No respiratory distress. Breath sounds normal. Abdomen: Soft and nontender. incisions c/d/i - ecchymosis noted injection sites does not grimace to palpation Skin: Skin warm and dry. Normal skin color. Normal skin turgor. Extremities: No lower extremity edema. No calf ttp Neuro: Oriented X 1 (self). No motor deficit. No sensory deficit. slurring words has diff handling secretions Course Course Course Narrative: abnormal speech, drooling will discuss admission for possible stroke workup and need to see speech much more awake and alert now - per Dr. Hicks can go back to facility, will be managed from there MDM - Altered Mental Status MDM Narrative Medical decision making narrative: 62 yo female with hx of dementia, TBI, abnormal LFTs, recent lap giovanni 01/14, mood disorder here with increased LFTs sent back to SNF - increasing AMS - drooling, diff swallowing at this time undifferentiated AMS will need labs, CXR, UA, CT head for possible stroke. Ammonia level ordered. Dispo per results and findings. Lab Data Result diagrams: 01/25/22 09:25 01/25/22 09:25 Labs: Lab Results 01/25/22 01/25/22 01/25/22 Range/Units 09:24 09:24 09:25 WBC 7.1 (4.8-10.8) X10*3/uL RBC 4.15 L (4.20-5.50) X10*6/uL Hgb 11.8 L (12.0-16.0) g/dl Hct 38.4 (37.0-47.0) % MCV 92.5 (80.0-98.0) fL MCH 28.4 (27.0-33.0) pg MCHC 30.7 L (31.0-35.0) g/dl RDW 15.6 (11.0-16.0) % Plt Count 475 H D (160-400) X10*3/uL MPV 9.6 (9.4-12.3) fL Immature Gran % (Auto) 0.3 (0.0-0.4) % Neut % (Auto) 64.6 (45-73) % Lymph % (Auto) 17.8 L (20-40) % [place]lier % (Auto) 7.4 (2-11) % Eos % (Auto) 9.3 H (0-4) % Baso % (Auto) 0.6 (0-2) % Lymph # (Auto) 1.3 (1.2-4.9) X10*3/uL [place] # (Auto) 0.5 (0.1-1.2) X10*3/uL Eos # (Auto) 0.7 H (0.0-0.4) X10*3/uL Baso # (Auto) 0.0 (0.0-0.2) X10*3/uL Abs Immat Gran (auto) 0.02 (0.00-0.03) X10*3/uL Absolute Neuts (auto) 4.6 (2.0-8.3) x10*3/uL Absolute Nucleated RBC 0.000 (0.0-0.012) X10*3/uL Nucleated RBC % (auto) 0.0 (0.0-0.2) /100WBC PT (9.9-13.0) SEC INR (0.9-1.1) VBG pH (7.32-7.43) VBG pCO2 mmHg VBG pO2 mmHg VBG HCO3 (22-26) mmol/L VBG O2 Saturation % VBG Base Excess mmol/L Sodium (135-145) mmol/L Potassium (3.3-5.1) mmol/L Chloride (96-108) mmol/L Carbon Dioxide (22-29) mmol/L Anion Gap (12-20) BUN (9-16) mg/dL Creatinine (0.5-1.4) mg/dL Estim Creat Clear Calc Estimated GFR Random Glucose (60-115) mg/dL Lactic Acid 1.2 (0.5-2.0) mmol/L Calcium (8.4-10.2) mg/dL Magnesium (1.6-2.6) mg/dL Total Bilirubin (0.0-1.0) mg/dL Direct Bilirubin (0.0-0.5) mg/dL AST (5-31) U/L ALT (0-31) U/L Alkaline Phosphatase (39-117) U/L Ammonia 37 (13-55) umol/L Troponin I High Sens (<3.5-17.0) ng/L Total Protein (6.5-8.0) g/dL Albumin (3.5-5.0) g/dL Lipase (8-78) U/L Urine Color Urine Appearance Urine pH (5.0-8.0) Ur Specific [place] (1.005-1.025) Urine Protein (NEG-TRACE) MG/DL Urine Glucose (UA) (NEG) MG/DL Urine Ketones (NEG) MG/DL Urine Blood (NEG) Urine Nitrite (NEG) Ur Leukocyte Esterase (NEG) COVID-19 (OK) (Negative) COVID-19 Clin Com 01/25/22 01/25/22 01/25/22 Range/Units 09:25 09:25 09:25 WBC (4.8-10.8) X10*3/uL RBC (4.20-5.50) X10*6/uL Hgb (12.0-16.0) g/dl Hct (37.0-47.0) % MCV (80.0-98.0) fL MCH (27.0-33.0) pg MCHC (31.0-35.0) g/dl RDW (11.0-16.0) % Plt Count (160-400) X10*3/uL MPV (9.4-12.3) fL Immature Gran % (Auto) (0.0-0.4) % Neut % (Auto) (45-73) % Lymph % (Auto) (20-40) % [place] % (Auto) (2-11) % Eos % (Auto) (0-4) % Baso % (Auto) (0-2) % Lymph # (Auto) (1.2-4.9) X10*3/uL [place] # (Auto) (0.1-1.2) X10*3/uL Eos # (Auto) (0.0-0.4) X10*3/uL Baso # (Auto) (0.0-0.2) X10*3/uL Abs Immat Gran (auto) (0.00-0.03) X10*3/uL Absolute Neuts (auto) (2.0-8.3) x10*3/uL Absolute Nucleated RBC (0.0-0.012) X10*3/uL Nucleated RBC % (auto) (0.0-0.2) /100WBC PT 12.4 (9.9-13.0) SEC INR 1.1 (0.9-1.1) VBG pH (7.32-7.43) VBG pCO2 mmHg VBG pO2 mmHg VBG HCO3 (22-26) mmol/L VBG O2 Saturation % VBG Base Excess mmol/L Sodium 146 H (135-145) mmol/L Potassium 3.7 D (3.3-5.1) mmol/L Chloride 107 (96-108) mmol/L Carbon Dioxide 31 H (22-29) mmol/L Anion Gap 12 (12-20) BUN 11 (9-16) mg/dL Creatinine 0.81 (0.5-1.4) mg/dL Estim Creat Clear Calc 73.8 Estimated GFR > 60 Random Glucose 106 (60-115) mg/dL Lactic Acid (0.5-2.0) mmol/L Calcium 9.6 D (8.4-10.2) mg/dL Magnesium 2.4 (1.6-2.6) mg/dL Total Bilirubin 1.2 H (0.0-1.0) mg/dL Direct Bilirubin 0.7 H (0.0-0.5) mg/dL AST 219 H (5-31) U/L ALT 178 H (0-31) U/L Alkaline Phosphatase 413 H D (39-117) U/L Ammonia (13-55) umol/L Troponin I High Sens (<3.5-17.0) ng/L Total Protein 6.9 D (6.5-8.0) g/dL Albumin 3.8 (3.5-5.0) g/dL Lipase 56 (8-78) U/L Urine Color Urine Appearance Urine pH (5.0-8.0) Ur Specific [place] (1.005-1.025) Urine Protein (NEG-TRACE) MG/DL Urine Glucose (UA) (NEG) MG/DL Urine Ketones (NEG) MG/DL Urine Blood (NEG) Urine Nitrite (NEG) Ur Leukocyte Esterase (NEG) COVID-19 (OK) Negative (Negative) COVID-19 Clin Com See Note 01/25/22 01/25/22 01/25/22 Range/Units 09:25 09:29 10:29 WBC (4.8-10.8) X10*3/uL RBC (4.20-5.50) X10*6/uL Hgb (12.0-16.0) g/dl Hct (37.0-47.0) % MCV (80.0-98.0) fL MCH (27.0-33.0) pg MCHC (31.0-35.0) g/dl RDW (11.0-16.0) % Plt Count (160-400) X10*3/uL MPV (9.4-12.3) fL Immature Gran % (Auto) (0.0-0.4) % Neut % (Auto) (45-73) % Lymph % (Auto) (20-40) % [place]lier % (Auto) (2-11) % Eos % (Auto) (0-4) % Baso % (Auto) (0-2) % Lymph # (Auto) (1.2-4.9) X10*3/uL [place] # (Auto) (0.1-1.2) X10*3/uL Eos # (Auto) (0.0-0.4) X10*3/uL Baso # (Auto) (0.0-0.2) X10*3/uL Abs Immat Gran (auto) (0.00-0.03) X10*3/uL Absolute Neuts (auto) (2.0-8.3) x10*3/uL Absolute Nucleated RBC (0.0-0.012) X10*3/uL Nucleated RBC % (auto) (0.0-0.2) /100WBC PT (9.9-13.0) SEC INR (0.9-1.1) VBG pH 7.40 (7.32-7.43) VBG pCO2 47 mmHg VBG pO2 37 mmHg VBG HCO3 29 H (22-26) mmol/L VBG O2 Saturation 57.0 % VBG Base Excess 4.0 mmol/L Sodium (135-145) mmol/L Potassium (3.3-5.1) mmol/L Chloride (96-108) mmol/L Carbon Dioxide (22-29) mmol/L Anion Gap (12-20) BUN (9-16) mg/dL Creatinine (0.5-1.4) mg/dL Estim Creat Clear Calc Estimated GFR Random Glucose (60-115) mg/dL Lactic Acid (0.5-2.0) mmol/L Calcium (8.4-10.2) mg/dL Magnesium (1.6-2.6) mg/dL Total Bilirubin (0.0-1.0) mg/dL Direct Bilirubin (0.0-0.5) mg/dL AST (5-31) U/L ALT (0-31) U/L Alkaline Phosphatase (39-117) U/L Ammonia (13-55) umol/L Troponin I High Sens 3.5 (<3.5-17.0) ng/L Total Protein (6.5-8.0) g/dL Albumin (3.5-5.0) g/dL Lipase (8-78) U/L Urine Color YELLOW Urine Appearance CLEAR Urine pH 6.5 (5.0-8.0) Ur Specific [place] 1.020 (1.005-1.025) Urine Protein NEG (NEG-TRACE) MG/DL Urine Glucose (UA) NEG (NEG) MG/DL Urine Ketones NEG (NEG) MG/DL Urine Blood NEG (NEG) Urine Nitrite NEG (NEG) Ur Leukocyte Esterase NEG (NEG) COVID-19 (OK) (Negative) COVID-19 Clin Com ECG Data ECG #1: Attestation: I personally reviewed and interpreted this ECG as follows: ECG interpretation date: 01/25/22 ECG interpretation time: 09:44 Interpretation: Rate: 76 Rhythm: NSR [place]: left Normal P waves. Normal JAYLYN. Normal QRS complex. Poor R wave progression ST T wave : normal no KINDRA qTC: normal prior studies: no acute ischemia The study has been interpreted contemporaneously by me. . Discharge Plan Discharge Clinical Impression: Decreased responsiveness, Abnormal LFTs, Slurred speech, Dysphagia
[2022-01-25 08:54] VITALS: BP 105/70; BP 123/62; PULSE 75; PULSE 78; RESP 16; TEMP 36.4; O2SAT 96; BMI 27.4
--- NOTE | 2022-01-25 09:04 | ECG_ITS ---
Test Reason : altered mental Blood Pressure : / mmHG Vent. Rate : 076 BPM Atrial Rate : 076 BPM P-R Int : 172 ms QRS Dur : 078 ms QT Int : 400 ms P-R-T Axes : 035 -09 009 degrees QTc Int : 450 ms Normal sinus rhythm Cannot rule out Anterior infarct , age undetermined Abnormal ECG When compared with ECG of 06-JAN-2022 10:14, No significant changes seen Referred By: Krystal Magdaleno Electronically Signed By:KULDIP DIAS
[2022-01-25 09:36] LABS: Venous Blood Gas Refer to POC result
[2022-01-25 09:36] LABS: MANUAL DIFF FLAG NO
[2022-01-25 09:37] LABS: VBG HCO3 29 mmol/L (22-26); VBG pCO2 47 mmHg; VBG pO2 37 mmHg
[2022-01-25 09:39] LABS: Basophils Percent Auto 0.6 % (0-2); Eosinophils Absolute Auto 0.7 X10*3/uL (0.0-0.4); Eosinophils Percent Auto 9.3 % (0-4); Hematocrit 38.4 % (37.0-47.0); Hemoglobin 11.8 g/dl (12.0-16.0); Imm Gran Abs Auto 0.02 X10*3/uL (0.00-0.03); Imm Gran Pct Auto 0.3 % (0.0-0.4); Lymphocytes Absolute Auto 1.3 X10*3/uL (1.2-4.9); Lymphocytes Percent Auto 17.8 % (20-40); Mean Corpuscular HGB Conc 30.7 g/dl (31.0-35.0); Mean Corpuscular Hemoglobin 28.4 pg (27.0-33.0); Mean Corpuscular Volume 92.5 fL (80.0-98.0); Mean Platelet Volume 9.6 fL (9.4-12.3); Monocytes Absolute Auto 0.5 X10*3/uL (0.1-1.2); Monocytes Percent Auto 7.4 % (2-11); Neutrophils Absolute Auto 4.6 x10*3/uL (2.0-8.3); Neutrophils Percent Auto 64.6 % (45-73); Platelet Count 475 X10*3/uL (160-400); Red Blood Count 4.15 X10*6/uL (4.20-5.50); Red Cell Distribution Width 15.6 % (11.0-16.0); White Blood Count 7.1 X10*3/uL (4.8-10.8)
[2022-01-25 09:46] LABS: Ammonia 37 umol/L (13-55)
[2022-01-25 09:46] LABS: INTERNATIONAL NORM RATIO 1.1 (0.9-1.1); Prothrombin Time 12.4 SEC (9.9-13.0)
[2022-01-25 09:49] LABS: Lactic Acid 1.2 mmol/L (0.5-2.0)
[2022-01-25 09:53] LABS: COVID-19 Test Negative (Negative)
[2022-01-25 09:58] LABS: Troponin-I High Sensitivity 3.5 ng/L (<3.5-17.0)
[2022-01-25 10:18] LABS: Alanine Aminotransferase 178 U/L (0-31); Albumin Level 3.8 g/dL (3.5-5.0); Alkaline Phosphatase 413 U/L (39-117); Anion Gap 12 (12-20); Aspartate Amino Transferase 219 U/L (5-31); Bilirubin Direct 0.7 mg/dL (0.0-0.5); Bilirubin Total 1.2 mg/dL (0.0-1.0); Blood Urea Nitrogen 11 mg/dL (9-16); Calcium 9.6 mg/dL (8.4-10.2); Carbon Dioxide 31 mmol/L (22-29); Chloride 107 mmol/L (96-108); Creatinine Clr Calc Pharmacy 73.8; Estimated Glomerular Filt Rate > 60; Glucose Random 106 mg/dL (60-115); Lipase 56 U/L (8-78); Magnesium 2.4 mg/dL (1.6-2.6); Potassium 3.7 mmol/L (3.3-5.1); Sodium 146 mmol/L (135-145); Total Protein 6.9 g/dL (6.5-8.0)
[2022-01-25 10:46] LABS: Appearance Urine CLEAR; Color Urine YELLOW; Glucose Urine UA NEG (NEG); Leukocyte Esterase Urine NEG (NEG); Nitrite Urine NEG (NEG); PH 6.5 (5.0-8.0); Urine Blood NEG (NEG); Urine Ketones NEG (NEG); Urine Protein NEG (NEG-TRACE)
[2022-01-25 10:53] VITALS: BP 124/79; PULSE 75; RESP 16; O2SAT 97
[2022-01-25] MEDS: 0.9 % Sodium Chloride 500 ML IV (10:56)
--- NOTE | 2022-01-25 12:40 | PHA.MEDREC ---
Pharmacy Consult ? Medication Reconciliation Pharmacy has completed the medication reconciliation. Pt had list of medications in chart, spoke to [facility] nursing to confirm last doses. Rolanda Callahan, GermainD
--- NOTE | 2022-01-25 13:28 | MHC.CM.ED ---
Received case management consult from ER. Patient is a LTC resident of [facility]. Patient came to ER due to AMS. Patient was going to be admitted. However, patient is at baseline orientation at this time. Dr Hicks will speak to the DON at [facility] and patient will be discharged back. Referral made via [employer]. Attempted to notify patient's guardian, Mukesh, via telephone at [phone]. Left message explaining patient would be transferring back to [facility]. Dr Magdaleno aware. Continue to monitor for d/c needs.
--- NOTE | 2022-01-25 15:25 | PC.NURSE ---
REPORT GIVEN TO EMS FOR RETURN TO [facility].
== END 2022-01-25 15:38 | disposition home or self-care (01) ==
LOC: HO.ED 11:41 → HO.EDOVER 12:42 → HO.ED 13:01
PROVIDERS: Emergency Provider Emergency Medicine; PCP Hospitalist
DX: R41.82 Altered mental status, unspecified (principal); R47.81 Slurred speech; R13.10 Dysphagia, unspecified; R79.89 Other specified abnormal findings of blood chemistry; Z20.822 Contact with and (suspected) exposure to COVID-19; Z79.899 Other long term (current) drug therapy
CPT/HCPCS: 36415; 70450; 71045; 80048; 80076; 81003; 82140; 82803; 83605; 83690; 83735; 84484; 85025; 85610; 87040; 87635; 93005; 96360; 99284

== ENCOUNTER 2022-01-30 09:32 | Emergency (ER) | payer MEDICARE, SELFPAY ==
--- NOTE | ~2022-01-30 | XR_ITS ---
EXAMINATION: XR CHEST CLINICAL INFORMATION: AMS. COMPARISON: Chest 01/25/2022 TECHNIQUE: Frontal view of the chest was obtained. FINDINGS: The lungs are hypoexpanded with bibasilar atelectatic changes. Heart size and pulmonary vascularity is normal. No gross bony abnormality seen. XR/XR chest 1V IMPRESSION: Bibasilar atelectatic changes otherwise both lungs are clear.
[2022-01-30 09:37] VITALS: BP 112/58; BP 90/50; PULSE 73; PULSE 79; RESP 18; TEMP 36.4; O2SAT 98; O2SAT 99; BMI 24.5
--- NOTE | 2022-01-30 09:45 | ED_ITS ---
HPI - Altered Mental Status General Chief Complaint: General Medical Stated Complaint: AMS- recent change in psych meds Time Seen by Provider: 01/30/22 09:37 Source: patient, EMS and old records reviewed Mode of arrival: EMS Limitations: altered mental status History of Present Illness HPI narrative: 62 yo female with long standing hx of TBI recent gallbladder removal, elevated LFTs, dementia having frequent bouts of decreased responsiveness no seizure activity then returning to baseline. Just had negative workup this week including CT head - issues still occurring at facility. Only change in medications was clozaril 75 to 100mg she has been on 100mg in the past. She is drinking water in the ED, watching TV, awake and able to ask for simple things. MD complaint: decreased responsiveness Onset (ago): minute(s) Timing confirmed by: caregiver Severity: mild Consistency of symptoms: waxing and waning Context: history of similar presentation Associated symptoms: denies other symptoms Related Data Home Medications Medication Instructions Recorded Confirmed acetaminophen 325 mg tablet 650 mg PO Q6H PRN 03/17/21 01/25/22 famotidine 40 mg tablet 40 mg PO DAILY 03/17/21 01/25/22 ibuprofen 600 mg tablet 600 mg PO Q8H PRN 03/17/21 01/25/22 loperamide 2 mg capsule 2 mg PO Q6H PRN 03/17/21 01/25/22 omeprazole 20 mg capsule,delayed 20 mg PO DAILY 03/17/21 01/25/22 release sennosides 8.6 mg tablet (Natural 8.6 mg PO Q24H PRN 03/17/21 01/25/22 Senna Laxative) sodium chloride 0.65 % nasal spray 1 spray INTRANASAL Q8H PRN 03/17/21 01/25/22 aerosol ([place] Nasal) aripiprazole 5 mg tablet (Abilify) 2.5 mg PO DAILY 12/22/21 01/25/22 calcium carbonate 500 mg calcium 500 mg PO Q8H PRN 12/22/21 01/25/22 (1,250 mg) chewable tablet cetirizine 10 mg tablet 10 mg PO DAILY 12/22/21 01/25/22 citalopram 20 mg tablet 20 mg PO DAILY 12/22/21 01/25/22 lamotrigine 150 mg tablet 150 mg PO BID 12/22/21 01/25/22 oxycodone-acetaminophen 5 mg-325 1 tab PO Q4H PRN 12/22/21 01/25/22 mg tablet bisacodyl 10 mg rectal suppository 10 mg UT DAILY PRN 01/25/22 01/25/22 ondansetron HCl 4 mg tablet 4 mg PO Q6H PRN 01/25/22 01/25/22 sodium phosphates 19 gram-7 118 ml UT DAILY PRN 01/25/22 01/25/22 gram/118 mL enema (Fleet Enema) Previous Rx's Medication Instructions Recorded clozapine 100 mg tablet 100 mg PO BEDTIME #30 tab 01/21/22 Allergies Allergy/AdvReac Type Severity Reaction Status Date / Time No Known Allergies Allergy Verified 12/23/21 17:09 Review of Systems Review of Systems: ROS unable to be obtained due to altered mental status PMFSH Past Medical History Medical History Acute calculous cholecystitis Aphasia Chondrocostal junction syndrome Delusional disorder Dementia Disruptive mood dysregulation disorder Gallstones GERD (gastroesophageal reflux disease) Hx of migraine headaches Hyperlipidemia Myopia Obsessive compulsive disorder Raynauds syndrome Traumatic brain injury Surgical History History of incisional hernia repair Hx laparoscopic cholecystectomy Family History Family History Maternal Grandmother Breast cancer Social History Social History Household Members: Caregiver Housing: Assisted Living Facility Do you presently have visiting nurse or other home services: No Unable to assess alcohol history related to: Unable to respond Alcohol intake: never Patient Tobacco Use Status: Never used Tobacco e-Cigarette/Vaping Use: Never Used Advance Directives: No Advance Directives Information Provided: No Advance Directives Date on File: 12/03/21 service: No Current occupational status: disabled Physical Exam ED Vital Signs: Vital Signs - 24 hr 01/30/22 09:37 01/30/22 10:35 Temperature 97.5 F 97.9 F Pulse Rate 79 79 Respiratory Rate 18 15 Blood Pressure 112/58 L 130/55 L Pulse Oximetry 99 99 BMI result Body Mass Index 24.5 Appearance: Alert. Oriented X1 (self) No acute distress. asking for water, sitting upright watching TV Eyes: Pupils equal, round and reactive to light. ENT: Pharynx mildly dry MM Neck: Normal inspection. Neck supple. CVS: Normal heart rate and rhythm. Pulses normal. Respiratory: No respiratory distress. Breath sounds diminished at bases Abdomen: Soft and nontender. incisions are c/d/i Skin: Skin warm and dry. Normal skin color. Normal skin turgor. Extremities: No lower extremity edema. No calf ttp Neuro: Oriented X 1. No motor deficit. No sensory deficit. Course Course Course Narrative: labs at baseline, verbalizing to us, watching TV can be DC back MDM - Altered Mental Status MDM Narrative Medical decision making narrative: 62 yo female with recurrent bouts of ?sleepiness vs progression her disease - no seizure activity reported will obtain basic labs and CXR and discuss with medica l director of facility. Just had CT head. Dispo per results and findings. Lab Data Result diagrams: 01/30/22 10:45 01/30/22 10:45 Labs: Lab Results 01/30/22 01/30/22 Range/Units 10:45 10:45 WBC 6.9 (4.8-10.8) X10*3/uL RBC 4.67 (4.20-5.50) X10*6/uL Hgb 13.3 (12.0-16.0) g/dl Hct 42.7 (37.0-47.0) % MCV 91.4 (80.0-98.0) fL MCH 28.5 (27.0-33.0) pg MCHC 31.1 (31.0-35.0) g/dl RDW 15.5 (11.0-16.0) % Plt Count 498 H (160-400) X10*3/uL MPV 9.9 (9.4-12.3) fL Immature Gran % (Auto) 0.3 (0.0-0.4) % Neut % (Auto) 69.3 (45-73) % Lymph % (Auto) 16.3 L (20-40) % [place] % (Auto) 5.9 (2-11) % Eos % (Auto) 7.3 H (0-4) % Baso % (Auto) 0.9 (0-2) % Lymph # (Auto) 1.1 L (1.2-4.9) X10*3/uL [place] # (Auto) 0.4 (0.1-1.2) X10*3/uL Eos # (Auto) 0.5 H (0.0-0.4) X10*3/uL Baso # (Auto) 0.1 (0.0-0.2) X10*3/uL Abs Immat Gran (auto) 0.02 (0.00-0.03) X10*3/uL Absolute Neuts (auto) 4.8 (2.0-8.3) x10*3/uL Absolute Nucleated RBC 0.000 (0.0-0.012) X10*3/uL Nucleated RBC % (auto) 0.0 (0.0-0.2) /100WBC Sodium 146 H (135-145) mmol/L Potassium 4.2 (3.3-5.1) mmol/L Chloride 108 (96-108) mmol/L Carbon Dioxide 25 (22-29) mmol/L Anion Gap 17 (12-20) BUN 7 L (9-16) mg/dL Creatinine 0.83 (0.5-1.4) mg/dL Estim Creat Clear Calc 69.2 Estimated GFR > 60 Random Glucose 110 (60-115) mg/dL Calcium 10.2 D (8.4-10.2) mg/dL Magnesium 2.4 (1.6-2.6) mg/dL Total Bilirubin 1.3 H (0.0-1.0) mg/dL Direct Bilirubin 0.9 H (0.0-0.5) mg/dL AST 209 H (5-31) U/L ALT 156 H (0-31) U/L Alkaline Phosphatase 388 H (39-117) U/L Total Protein 7.7 (6.5-8.0) g/dL Albumin 4.1 (3.5-5.0) g/dL Discharge Plan Discharge Clinical Impression: Excessive sleepiness Patient Disposition: Xfer SNF Transfer Details: [facility] Instructions: Dementia (ED) Additional Instructions: return to ED for any worsening symptoms or concerns Prescriptions: No Action lamotrigine 150 mg Tablet 150 mg PO BID 0RF cetirizine 10 mg Tablet 10 mg PO DAILY 0RF oxycodone-acetaminophen 5-325 mg Tablet 1 tab PO Q4H PRN (Reason: Pain) 0RF citalopram 20 mg Tablet 20 mg PO DAILY 0RF calcium carbonate 500 mg calcium (1,250 mg) Tablet,Chewable 500 mg PO Q8H PRN (Reason: Heartburn) 0RF aripiprazole [Abilify] 5 mg Tablet 2.5 mg PO DAILY 0RF clozapine 100 mg Tablet 100 mg PO BEDTIME Qty: 30 0RF bisacodyl 10 mg Suppository 10 mg UT DAILY PRN (Reason: Constipation) 0RF ondansetron HCl 4 mg Tablet 4 mg PO Q6H PRN (Reason: Nausea) 0RF Fleet Enema 19-7 gram/118 mL Enema 118 ml UT DAILY PRN (Reason: Constipation) 0RF acetaminophen 325 mg tablet 650 mg PO Q6H PRN (Reason: Pain) 0RF famotidine 40 mg tablet 40 mg PO DAILY 0RF ibuprofen 600 mg tablet 600 mg PO Q8H PRN (Reason: Pain) 0RF loperamide 2 mg capsule 2 mg PO Q6H PRN (Reason: Diarrhea) 0RF sodium chloride [[place] Nasal] 0.65 % aerosol,spray 1 spray intranasal Q8H PRN (Reason: Nasal Congestion) 0RF omeprazole 20 mg capsule,delayed release(DR/EC) 20 mg PO DAILY 0RF sennosides [Natural Senna Laxative] 8.6 mg tablet 8.6 mg PO Q24H PRN (Reason: Constipation) 0RF
[2022-01-30 10:35] VITALS: BP 130/55; PULSE 79; RESP 15; TEMP 36.6; O2SAT 99
[2022-01-30 10:54] LABS: MANUAL DIFF FLAG NO
[2022-01-30 11:03] LABS: Basophils Absolute Auto 0.1 X10*3/uL (0.0-0.2); Basophils Percent Auto 0.9 % (0-2); Eosinophils Absolute Auto 0.5 X10*3/uL (0.0-0.4); Eosinophils Percent Auto 7.3 % (0-4); Hematocrit 42.7 % (37.0-47.0); Hemoglobin 13.3 g/dl (12.0-16.0); Imm Gran Abs Auto 0.02 X10*3/uL (0.00-0.03); Imm Gran Pct Auto 0.3 % (0.0-0.4); Lymphocytes Absolute Auto 1.1 X10*3/uL (1.2-4.9); Lymphocytes Percent Auto 16.3 % (20-40); Mean Corpuscular HGB Conc 31.1 g/dl (31.0-35.0); Mean Corpuscular Hemoglobin 28.5 pg (27.0-33.0); Mean Corpuscular Volume 91.4 fL (80.0-98.0); Mean Platelet Volume 9.9 fL (9.4-12.3); Monocytes Absolute Auto 0.4 X10*3/uL (0.1-1.2); Monocytes Percent Auto 5.9 % (2-11); Neutrophils Absolute Auto 4.8 x10*3/uL (2.0-8.3); Neutrophils Percent Auto 69.3 % (45-73); Platelet Count 498 X10*3/uL (160-400); Red Blood Count 4.67 X10*6/uL (4.20-5.50); Red Cell Distribution Width 15.5 % (11.0-16.0); White Blood Count 6.9 X10*3/uL (4.8-10.8)
[2022-01-30 11:25] LABS: Alanine Aminotransferase 156 U/L (0-31); Albumin Level 4.1 g/dL (3.5-5.0); Alkaline Phosphatase 388 U/L (39-117); Anion Gap 17 (12-20); Aspartate Amino Transferase 209 U/L (5-31); Bilirubin Direct 0.9 mg/dL (0.0-0.5); Bilirubin Total 1.3 mg/dL (0.0-1.0); Blood Urea Nitrogen 7 mg/dL (9-16); Calcium 10.2 mg/dL (8.4-10.2); Carbon Dioxide 25 mmol/L (22-29); Chloride 108 mmol/L (96-108); Creatinine Clr Calc Pharmacy 69.2; Estimated Glomerular Filt Rate > 60; Glucose Random 110 mg/dL (60-115); Magnesium 2.4 mg/dL (1.6-2.6); Potassium 4.2 mmol/L (3.3-5.1); Sodium 146 mmol/L (135-145); Total Protein 7.7 g/dL (6.5-8.0)
[2022-01-30 13:40] VITALS: BP 123/65; PULSE 84; RESP 15; TEMP 36.5; O2SAT 98
[2022-01-30 15:30] VITALS: BP 120/48; PULSE 80; RESP 16; TEMP 36.6; O2SAT 98
== END 2022-01-30 17:03 | disposition skilled nursing facility (03) ==
PROVIDERS: Emergency Provider Emergency Medicine; PCP Hospitalist
DX: G47.10 Hypersomnia, unspecified (principal); F03.90 Unspecified dementia, unspecified severity, without behavioral disturbance, psychotic disturbance, mood disturbance, and anxiety; Z79.899 Other long term (current) drug therapy; Z87.820 Personal history of traumatic brain injury
CPT/HCPCS: 36415; 71045; 80048; 80076; 83735; 85025; 99283; 99284

== ENCOUNTER → 2022-02-11 10:34 | Outpatient (BNVA) | payer MEDICARE, SELFPAY | PROVIDERS: PCP Hospitalist; Referring Provider Hospitalist; Visit Provider Surgery | DX: Z48.815 Encounter for surgical aftercare following surgery on the digestive system (principal); Z90.49 Acquired absence of other specified parts of digestive tract | CPT/HCPCS: 99212 ==

== ENCOUNTER 2022-03-19 11:15 | Outpatient (REF) | payer MEDICARE, SELFPAY ==
[2022-03-24 17:02] LABS: HPV mRNA E6/E7 rflx Not Detected (Not Detected)
== END 2022-03-19 11:16 | disposition home or self-care (01) ==
LOC: HO.LAB 11:15
PROVIDERS: Visit Provider Advanced Practice Midwife
DX: Z01.419 Encounter for gynecological examination (general) (routine) without abnormal findings (principal); Z11.51 Encounter for screening for human papillomavirus (HPV)
CPT/HCPCS: 87624; 88142

== ENCOUNTER 2022-03-28 18:20 | Inpatient (IN) | payer MEDICARE, SELFPAY ==
--- NOTE | ~2022-03-28 | XR_ITS ---
EXAMINATION: CHEST, RIGHT TIBIA AND FIBULA, RIGHT FEMUR AND PELVIS. CLINICAL INFORMATION: Fall. Pain. COMPARISON: None TECHNIQUE: Chest one view. Right tibia and fibula 2 views. Right femur 2 views. AP pelvis one view. FINDINGS: The lungs are mildly hypoinflated with elevated right hemidiaphragm. No acute process. The heart size and progress clarities normal. No gross bony abnormality seen. Right tibia and fibula: There is an old healed distal tibial and proximal fibular fracture. No acute fracture or dislocation seen. No bony abnormality. The soft tissues are normal. AP pelvis and right femur: There is impacted and slightly angulated lateral fracture right femoral neck but no dislocation seen. The left femur and the other bones are normal. XR/XR chest 1V IMPRESSION: Impacted and minimally angulated laterally right femoral neck fracture. No dislocation. Unremarkable chest exam. No acute fracture involving the right tibia and fibula.
--- NOTE | ~2022-03-28 | XR_ITS ---
EXAMINATION: CHEST, RIGHT TIBIA AND FIBULA, RIGHT FEMUR AND PELVIS. CLINICAL INFORMATION: Fall. Pain. COMPARISON: None TECHNIQUE: Chest one view. Right tibia and fibula 2 views. Right femur 2 views. AP pelvis one view. FINDINGS: The lungs are mildly hypoinflated with elevated right hemidiaphragm. No acute process. The heart size and progress clarities normal. No gross bony abnormality seen. Right tibia and fibula: There is an old healed distal tibial and proximal fibular fracture. No acute fracture or dislocation seen. No bony abnormality. The soft tissues are normal. AP pelvis and right femur: There is impacted and slightly angulated lateral fracture right femoral neck but no dislocation seen. The left femur and the other bones are normal. XR/XR pelvis min 3V IMPRESSION: Impacted and minimally angulated laterally right femoral neck fracture. No dislocation. Unremarkable chest exam. No acute fracture involving the right tibia and fibula.
--- NOTE | ~2022-03-28 | XR_ITS ---
EXAMINATION: XR PELVIS CLINICAL INFORMATION: Postop COMPARISON: Previous x-ray 03/28/2022 TECHNIQUE: AP view of the pelvis. FINDINGS: There is a new right hip replacement in satisfactory position. No fracture or dislocation is seen. Left hip joint and bones of the pelvis are normal. Soft tissues are normal. XR/XR pelvis 1-2V IMPRESSION: Satisfactory appearance of right hip replacement.
--- NOTE | ~2022-03-28 | XR_ITS ---
EXAMINATION: CHEST, RIGHT TIBIA AND FIBULA, RIGHT FEMUR AND PELVIS. CLINICAL INFORMATION: Fall. Pain. COMPARISON: None TECHNIQUE: Chest one view. Right tibia and fibula 2 views. Right femur 2 views. AP pelvis one view. FINDINGS: The lungs are mildly hypoinflated with elevated right hemidiaphragm. No acute process. The heart size and progress clarities normal. No gross bony abnormality seen. Right tibia and fibula: There is an old healed distal tibial and proximal fibular fracture. No acute fracture or dislocation seen. No bony abnormality. The soft tissues are normal. AP pelvis and right femur: There is impacted and slightly angulated lateral fracture right femoral neck but no dislocation seen. The left femur and the other bones are normal. XR/XR tibia fibula RT 2V IMPRESSION: Impacted and minimally angulated laterally right femoral neck fracture. No dislocation. Unremarkable chest exam. No acute fracture involving the right tibia and fibula.
--- NOTE | ~2022-03-28 | CT_ITS ---
EXAMINATION: CT HEAD WITHOUT CONTRAST CLINICAL INFORMATION: Unknown head strike. COMPARISON: CT brain 01/25/2022 TECHNIQUE: Contiguous axial imaging was performed from the skull base to vertex without intravenous administration of contrast. This CT examination was performed using dose optimization techniques as appropriate, variously including the following: *Automated exposure control *Adjustment of mA and/or kV according to patient size (this includes techniques or standardized protocols for targeted exams where dose is matched to indication/reason for exam; i.e. extremities or head) *Use of iterative reconstruction technique DLP: 628 mGy-cm FINDINGS: There is a left frontal craniotomy with a metallic plate and underlying left parietal temporal lobe encephalomalacia from old insult or intervention. There is no acute intra-axial or extra-axial bleed, masses or midline shift. No acute infarction in evolution. The lateral ventricles are symmetrical in size but enlarged. There is diffuse periventricular hypodensity in both cerebral hemispheres without mass effect. There is mild cerebral are volume loss. Bone windows reveal no calvarial abnormality. Bilateral paranasal sinuses and mastoid air cells are well-aerated. No scalp soft tissue abnormality seen. CT/CT head/brain wo con IMPRESSION: No acute intracranial process seen. Left parietal occipital lobe encephalomalacia with craniotomy unchanged to previous study 01/25/2022. Mild cerebral and cerebellar volume loss.
--- NOTE | ~2022-03-28 | XR_ITS ---
EXAMINATION: CHEST, RIGHT TIBIA AND FIBULA, RIGHT FEMUR AND PELVIS. CLINICAL INFORMATION: Fall. Pain. COMPARISON: None TECHNIQUE: Chest one view. Right tibia and fibula 2 views. Right femur 2 views. AP pelvis one view. FINDINGS: The lungs are mildly hypoinflated with elevated right hemidiaphragm. No acute process. The heart size and progress clarities normal. No gross bony abnormality seen. Right tibia and fibula: There is an old healed distal tibial and proximal fibular fracture. No acute fracture or dislocation seen. No bony abnormality. The soft tissues are normal. AP pelvis and right femur: There is impacted and slightly angulated lateral fracture right femoral neck but no dislocation seen. The left femur and the other bones are normal. XR/XR femur RT 2V IMPRESSION: Impacted and minimally angulated laterally right femoral neck fracture. No dislocation. Unremarkable chest exam. No acute fracture involving the right tibia and fibula.
[2022-03-28 18:33] VITALS: BP 130/80; PULSE 87; O2SAT 94
--- NOTE | 2022-03-28 18:47 | ECG_ITS ---
Test Reason : FALL Blood Pressure : / mmHG Vent. Rate : 091 BPM Atrial Rate : 091 BPM P-R Int : 152 ms QRS Dur : 080 ms QT Int : 360 ms P-R-T Axes : 049 -05 038 degrees QTc Int : 442 ms Normal sinus rhythm Normal ECG When compared with ECG of 25-JAN-2022 09:35, Nonspecific T wave abnormality has replaced inverted T waves in Inferior leads Referred By: Bonnie Buenrostro Electronically Signed By:KULDIP DIAS
--- NOTE | 2022-03-28 19:17 | ED.FALL ---
HPI - Fall General Chief Complaint: Fall Stated Complaint: FALL @ 3AM FEMUR FX PER SNF Time Seen by Provider: 03/28/22 18:27 Source: EMS Mode of arrival: ambulatory Limitations: altered mental status History of Present Illness HPI Narrative: 62-year-old female presenting to the emergency department with an unwitnessed fell from a nursing home facility they are concerned for possible femur fracture. Fall occurred at around 0300 am, xray at the facility concerning for possible fx.EMS unable to provide me with many details. Patient tells me that she tripped and fell, denies preceding symptoms however poor historian, history of TBI. Per EMS and SNF neuro at baseline. No other complaints at this time. MD complaint: fall Related Data Home Medications Medication Instructions Recorded Confirmed acetaminophen 325 mg tablet 650 mg PO Q6H PRN Pain 03/17/21 01/25/22 famotidine 40 mg tablet 40 mg PO DAILY 03/17/21 01/25/22 ibuprofen 600 mg tablet 600 mg PO Q8H PRN Pain 03/17/21 01/25/22 loperamide 2 mg capsule 2 mg PO Q6H PRN Diarrhea 03/17/21 01/25/22 omeprazole 20 mg capsule,delayed 20 mg PO DAILY 03/17/21 01/25/22 release sennosides 8.6 mg tablet (Natural 8.6 mg PO Q24H PRN Constipation 03/17/21 01/25/22 Senna Laxative) sodium chloride 0.65 % nasal spray 1 spray intranasal Q8H PRN Nasal 03/17/21 01/25/22 aerosol ([place] Nasal) Congestion aripiprazole 5 mg tablet (Abilify) 2.5 mg PO DAILY 12/22/21 01/25/22 calcium carbonate 500 mg calcium 500 mg PO Q8H PRN Heartburn 12/22/21 01/25/22 (1,250 mg) chewable tablet cetirizine 10 mg tablet 10 mg PO DAILY 12/22/21 01/25/22 citalopram 20 mg tablet 20 mg PO DAILY 12/22/21 01/25/22 bisacodyl 10 mg rectal suppository 10 mg [place] DAILY PRN Constipation 01/25/22 01/25/22 ondansetron HCl 4 mg tablet 4 mg PO Q6H PRN Nausea 01/25/22 01/25/22 sodium phosphates 19 gram-7 118 ml [place] DAILY PRN Constipation 01/25/22 01/25/22 gram/118 mL enema (Fleet Enema) clozapine 50 mg tablet 25 mg PO BEDTIME 03/19/22 lamotrigine 150 mg tablet 100 mg PO BID 03/19/22 Previous Rx's Medication Instructions Recorded clozapine 100 mg tablet 100 mg PO BEDTIME #30 tabs 01/21/22 Allergies Allergy/AdvReac Type Severity Reaction Status Date / Time No Known Allergies Allergy Verified 03/19/22 10:39 Review of Systems Review of Systems: Yes Unobtainable due to mental status [facility] Past Medical History Attestation statement: The following information was validated with the patient. Source: old records reviewed and nursing notes reviewed Medical History Aphasia Chondrocostal junction syndrome Delusional disorder Disruptive mood dysregulation disorder Gallstones GERD (gastroesophageal reflux disease) Hx of migraine headaches Hyperlipidemia Myopia Obsessive compulsive disorder Raynauds syndrome Surgical History History of incisional hernia repair Hx laparoscopic cholecystectomy Family History Family History Maternal Grandmother Breast cancer Social History Social History Household Members: Caregiver Housing: Assisted Living Facility Do you presently have visiting nurse or other home services: No Unable to assess alcohol history related to: Unable to respond Alcohol intake: never Patient Tobacco Use Status: Never used Tobacco e-Cigarette/Vaping Use: Never Used Advance Directives: Yes Advance Directives Information Provided: Yes Advance Directives on File: Yes Advance Directives Date on File: 12/03/21 service: No Current occupational status: disabled Physical Exam Vital Signs: Vital Signs: BMI result Body Mass Index 31.3 Appearance: Alert.? Awake.? No acute distress.? Head: Normocephalic, atraumatic, no step-offs or deformities Eyes: Pupils equal, round and reactive to light.? ENT: Pharynx normal.? Neck: Normal inspection.? Neck supple.? CVS: Normal heart rate and rhythm.? Pulses normal.? Respiratory: No respiratory distress.? Breath sounds normal.? Abdomen: Soft and nontender.? Skin: Skin warm and dry.? Normal skin color.? Normal skin turgor.? Extremities: No lower extremity edema.? No calf ttp. + pain over right SI joint, RLE shortened and externally rotated. Cant lift right leg. 2+ PT,DP pulses equal and b/l Back: No midline tenderness, no C-spine tenderness, full range of motion, no CVA tenderness bilaterally Neuro: Awake, Alert.? No motor deficit.? No sensory deficit. Course Reevaluation(s) Reevaluation #1: According to Nurse (Rhonda) from [facility] patient fell at around 0300 am found on her knees was assisted up xrays were obtained 1 view which showed suspicion of fx. Patients neuro appears to be at baseline according to shelter staff. Patient is DNR however unsure if DNI. Mary Nolan is patients healthcare proxy will call her. Time: 20:36 Reevaluation #2: Mary Nolan, states if surgery is needed that is ok. DNR/DNI per proxy. Time: 20:38 Reevaluation #3: At this time patient will be admitted to the hospitalist. Time: 20:42 MDM - Fall MDM Narrative Medical decision making narrative: 1927 62 yo f presents s/p unwitnessed trip and fall at 0300 Physical examination with a slightly shortened right lower extremity, pain with palpation of right SI joint. Patient unable to ambulate. Regular rate and rhythm. Lungs clear. Abdomen soft nontender nondistended. Patient alert, awake, moving all extremities, neuro exam appropriate for patient's baseline. Unable to lift the leg, can not ambulate due to pain. Because patient is a poor historian and unsure of how she fell laboratory studies, EKG, troponin, head CT will be ordered at this time. Will also obtain plain films to out hip fracture, pelvic fracture. Medical Records Attestation: I reviewed the patient's medical records. Lab Data Attestation: I reviewed the patient's lab results. Result diagrams: 03/28/22 19:53 03/28/22 19:53 Labs: Lab Results 03/28/22 03/28/22 03/28/22 Range/Units 19:53 19:53 19:53 WBC 9.0 (4.8-10.8) X10*3/uL RBC 4.36 (4.20-5.50) X10*6/uL Hgb 12.4 (12.0-16.0) g/dl Hct 38.2 (37.0-47.0) % MCV 87.6 (80.0-98.0) fL MCH 28.4 (27.0-33.0) pg MCHC 32.5 (31.0-35.0) g/dl RDW 14.5 (11.0-16.0) % Plt Count 307 D (160-400) X10*3/uL MPV 9.7 (9.4-12.3) fL Immature Gran % (Auto) 0.2 (0.0-0.4) % Neut % (Auto) 74.8 H (45-73) % Lymph % (Auto) 15.8 L (20-40) % [place] % (Auto) 6.1 (2-11) % Eos % (Auto) 2.8 (0-4) % Baso % (Auto) 0.3 (0-2) % Lymph # (Auto) 1.4 (1.2-4.9) X10*3/uL [place] # (Auto) 0.6 (0.1-1.2) X10*3/uL Eos # (Auto) 0.3 (0.0-0.4) X10*3/uL Baso # (Auto) 0.0 (0.0-0.2) X10*3/uL Abs Immat Gran (auto) 0.02 (0.00-0.03) X10*3/uL Absolute Neuts (auto) 6.7 (2.0-8.3) x10*3/uL Absolute Nucleated RBC 0.000 (0.0-0.012) X10*3/uL Nucleated RBC % (auto) 0.0 (0.0-0.2) /100WBC Sodium 142 (135-145) mmol/L Potassium 4.0 (3.3-5.1) mmol/L Chloride 105 (96-108) mmol/L Carbon Dioxide 29 (22-29) mmol/L Anion Gap 12 (12-20) BUN 9 (9-16) mg/dL Creatinine 0.82 (0.5-1.4) mg/dL Estim Creat Clear Calc TNP Estimated GFR > 60 Random Glucose 113 (60-115) mg/dL Calcium 9.3 D (8.4-10.2) mg/dL Magnesium 2.2 (1.6-2.6) mg/dL Total Bilirubin 0.7 (0.0-1.0) mg/dL AST 32 H D (5-31) U/L ALT 29 (0-31) U/L Alkaline Phosphatase 145 H D (39-117) U/L Troponin I High Sens < 3.5 (<3.5-17.0) ng/L Total Protein 6.3 L (6.5-8.0) g/dL Albumin 3.6 (3.5-5.0) g/dL COVID-19 (OK) (Negative) COVID-19 Clin Com 03/28/22 Range/Units 19:53 WBC (4.8-10.8) X10*3/uL RBC (4.20-5.50) X10*6/uL Hgb (12.0-16.0) g/dl Hct (37.0-47.0) % MCV (80.0-98.0) fL MCH (27.0-33.0) pg MCHC (31.0-35.0) g/dl RDW (11.0-16.0) % Plt Count (160-400) X10*3/uL MPV (9.4-12.3) fL Immature Gran % (Auto) (0.0-0.4) % Neut % (Auto) (45-73) % Lymph % (Auto) (20-40) % [place] % (Auto) (2-11) % Eos % (Auto) (0-4) % Baso % (Auto) (0-2) % Lymph # (Auto) (1.2-4.9) X10*3/uL [place] # (Auto) (0.1-1.2) X10*3/uL Eos # (Auto) (0.0-0.4) X10*3/uL Baso # (Auto) (0.0-0.2) X10*3/uL Abs Immat Gran (auto) (0.00-0.03) X10*3/uL Absolute Neuts (auto) (2.0-8.3) x10*3/uL Absolute Nucleated RBC (0.0-0.012) X10*3/uL Nucleated RBC % (auto) (0.0-0.2) /100WBC Sodium (135-145) mmol/L Potassium (3.3-5.1) mmol/L Chloride (96-108) mmol/L Carbon Dioxide (22-29) mmol/L Anion Gap (12-20) BUN (9-16) mg/dL Creatinine (0.5-1.4) mg/dL Estim Creat Clear Calc Estimated GFR Random Glucose (60-115) mg/dL Calcium (8.4-10.2) mg/dL Magnesium (1.6-2.6) mg/dL Total Bilirubin (0.0-1.0) mg/dL AST (5-31) U/L ALT (0-31) U/L Alkaline Phosphatase (39-117) U/L Troponin I High Sens (<3.5-17.0) ng/L Total Protein (6.5-8.0) g/dL Albumin (3.5-5.0) g/dL COVID-19 (OK) Negative (Negative) COVID-19 Clin Com See Note ECG Data Attestation: I personally reviewed and interpreted this ECG as follows: ECG interpretation date: 03/28/22 ECG interpretation time: 20:02 Prior ECG tracings: available for review Interpretation: Ventricular rate of 91, KY normal, QRS normal, QT/QTC normal. EKG shows normal sinus rhythm, no ST elevations or inversions concerning for ischemia. No significant changes when compared to EKG of January 2022 Critical Care Time Critical Care Time Critical Care Time: Yes Total Critical Care Time: 35 Attestation: I attest to this time spent taking care of the patient, obtaining history, physical, reviewing labs, imaging, speaking to my attending, speaking to specialist. Discharge Plan Discharge Clinical Impression: Fall, Fracture of neck of humerus Patient Disposition: Admitted As Inpatient Prescriptions: No Action cetirizine 10 mg Tablet 10 mg PO DAILY citalopram 20 mg Tablet 20 mg PO DAILY calcium carbonate 500 mg calcium (1,250 mg) Tablet,Chewable 500 mg PO Q8H PRN (Reason: Heartburn) aripiprazole [Abilify] 5 mg Tablet 2.5 mg PO DAILY lamotrigine 150 mg tablet 100 mg PO BID clozapine 100 mg Tablet 100 mg PO BEDTIME Qty: 30 0RF bisacodyl 10 mg Suppository 10 mg [place] DAILY PRN (Reason: Constipation) ondansetron HCl 4 mg Tablet 4 mg PO Q6H PRN (Reason: Nausea) Fleet Enema 19-7 gram/118 mL Enema 118 ml [place] DAILY PRN (Reason: Constipation) acetaminophen 325 mg tablet 650 mg PO Q6H PRN (Reason: Pain) famotidine 40 mg tablet 40 mg PO DAILY ibuprofen 600 mg tablet 600 mg PO Q8H PRN (Reason: Pain) loperamide 2 mg capsule 2 mg PO Q6H PRN (Reason: Diarrhea) sodium chloride [[place] Nasal] 0.65 % aerosol,spray 1 spray intranasal Q8H PRN (Reason: Nasal Congestion) omeprazole 20 mg capsule,delayed release(DR/EC) 20 mg PO DAILY sennosides [Natural Senna Laxative] 8.6 mg tablet 8.6 mg PO Q24H PRN (Reason: Constipation) clozapine 50 mg tablet 25 mg PO BEDTIME Rx Instructions: 3 tabs po at bedtime
[2022-03-28 20:01] LABS: MANUAL DIFF FLAG NO
[2022-03-28 20:02] LABS: Basophils Percent Auto 0.3 % (0-2); Eosinophils Absolute Auto 0.3 X10*3/uL (0.0-0.4); Eosinophils Percent Auto 2.8 % (0-4); Hematocrit 38.2 % (37.0-47.0); Hemoglobin 12.4 g/dl (12.0-16.0); Imm Gran Abs Auto 0.02 X10*3/uL (0.00-0.03); Imm Gran Pct Auto 0.2 % (0.0-0.4); Lymphocytes Absolute Auto 1.4 X10*3/uL (1.2-4.9); Lymphocytes Percent Auto 15.8 % (20-40); Mean Corpuscular HGB Conc 32.5 g/dl (31.0-35.0); Mean Corpuscular Hemoglobin 28.4 pg (27.0-33.0); Mean Corpuscular Volume 87.6 fL (80.0-98.0); Mean Platelet Volume 9.7 fL (9.4-12.3); Monocytes Absolute Auto 0.6 X10*3/uL (0.1-1.2); Monocytes Percent Auto 6.1 % (2-11); Neutrophils Absolute Auto 6.7 x10*3/uL (2.0-8.3); Neutrophils Percent Auto 74.8 % (45-73); Platelet Count 307 X10*3/uL (160-400); Red Blood Count 4.36 X10*6/uL (4.20-5.50); Red Cell Distribution Width 14.5 % (11.0-16.0)
[2022-03-28 20:16] LABS: COVID-19 Test Negative (Negative)
[2022-03-28 20:20] LABS: Alanine Aminotransferase 29 U/L (0-31); Albumin Level 3.6 g/dL (3.5-5.0); Alkaline Phosphatase 145 U/L (39-117); Anion Gap 12 (12-20); Aspartate Amino Transferase 32 U/L (5-31); Bilirubin Total 0.7 mg/dL (0.0-1.0); Blood Urea Nitrogen 9 mg/dL (9-16); Calcium 9.3 mg/dL (8.4-10.2); Carbon Dioxide 29 mmol/L (22-29); Chloride 105 mmol/L (96-108); Estimated Glomerular Filt Rate > 60; Glucose Random 113 mg/dL (60-115); Magnesium 2.2 mg/dL (1.6-2.6); Sodium 142 mmol/L (135-145); Total Protein 6.3 g/dL (6.5-8.0)
[2022-03-28 20:25] LABS: Troponin-I High Sensitivity < 3.5 ng/L (<3.5-17.0)
[2022-03-28 20:27] VITALS: BMI 31.3
--- NOTE | 2022-03-28 20:35 | PM.IMHP ---
History of Present Illness Date of Service: 03/28/22 Chief Complaint: fall 62-year-old female with a past medical history of chondrocostal syndrome, mood disorder, OCD, Raynaud syndrome, aphasia, hyperlipidemia, GERD, TBI, dementia presented from the [facility] with a chief complaint of fall. Per report patient had fall at the assisted around 03:00; followed by him patient got an x-ray at the facility which was concerning for a fracture subsequently sent to the ER for further evaluation. Reportedly patient was tripped and fell down; mental status at baseline; denies patient having any signs of fever; Patient is minimally verbal, complains of pain in her right lower extremity. Denies any chest pain or palpitations. also spoke to the patient's healthcare proxy. Denies patient recently having any signs of infection. Review of all other systems is limited. ER course: Per ER team patient on presentation noted to have shortened right lower extremity and externally rotated; neurovascularly intact; EKG was nonischemic; imaging showed right femoral neck fracture; orthopedics was notified -recommended admission to the medicine service. [facility] Medical History Aphasia Chondrocostal junction syndrome Delusional disorder Disruptive mood dysregulation disorder Gallstones GERD (gastroesophageal reflux disease) Hx of migraine headaches Hyperlipidemia Myopia Obsessive compulsive disorder Raynauds syndrome Family History Maternal Grandmother Breast cancer Surgical History History of incisional hernia repair Hx laparoscopic cholecystectomy Social History Household Members: Caregiver Housing: Assisted Living Facility Do you presently have visiting nurse or other home services: No Unable to assess alcohol history related to: Unable to respond Alcohol intake: never Patient Tobacco Use Status: Never used Tobacco e-Cigarette/Vaping Use: Never Used Advance Directives: Yes Advance Directives Information Provided: Yes Advance Directives on File: Yes Advance Directives Date on File: 12/03/21 service: No Current occupational status: disabled Meds Allergies Allergy/AdvReac Type Severity Reaction Status Date / Time No Known Allergies Allergy Verified 03/19/22 10:39 Active Medications: Current Medications Acetaminophen (Acetaminophen 325 Mg Tablet) 650 mg PO Q6H PRN PRN Reason: Pain, Mild (Pain Scale 1-3) Hydromorphone HCl (Hydromorphone Hcl 0.5 Mg/0.5 Ml Syringe) 0.5 mg IVPUSH Q4H PRN; Protocol PRN Reason: Pain, Severe (Pain Scale 7-10) Melatonin (Melatonin 3 Mg Tablet) 6 mg PO BEDTIME PRN PRN Reason: Insomnia Pharmacy Consult (Consult Rx Perform Med Rec) 1 each MISCELLANE ONCE STA Stop: 03/28/22 20:32 Senna (Sennosides 8.6 Mg Tablet) 17.2 mg PO BEDTIME PRN PRN Reason: Constipation Sodium Chloride (0.9 % Sodium Chloride Flush 3 Ml Syringe) [facility] Medications Medication Instructions Recorded Confirmed Last Taken Type acetaminophen 325 mg tablet 650 mg PO Q6H PRN Pain/FEVER 03/17/21 03/28/22 Unknown History famotidine 40 mg tablet 40 mg PO DAILY 03/17/21 03/28/22 03/28/22 History ibuprofen 600 mg tablet 600 mg PO Q8H PRN Pain (Scale 03/17/21 03/28/22 Unknown History Score 4-6) loperamide 2 mg capsule 2 mg PO Q6H PRN Diarrhea 03/17/21 03/28/22 Unknown History omeprazole 20 mg capsule,delayed 20 mg PO DAILY@0630 03/17/21 03/28/22 03/28/22 History release sennosides 8.6 mg tablet (Natural 8.6 mg PO Q24H PRN Constipation 03/17/21 03/28/22 Unknown History Senna Laxative) sodium chloride 0.65 % nasal spray 1 spray intranasal Q8H PRN Dry 03/17/21 03/28/22 Unknown History aerosol ([place] Nasal) Nasal Passages calcium carbonate 500 mg calcium 500 mg PO Q8H PRN Heartburn 12/22/21 03/28/22 Unknown History (1,250 mg) chewable tablet cetirizine 10 mg tablet 10 mg PO DAILY 12/22/21 03/28/22 03/28/22 History bisacodyl 10 mg rectal suppository 10 mg [place] Q24H PRN Constipation 01/25/22 03/28/22 Unknown History ondansetron HCl 4 mg tablet 4 mg PO Q6H PRN Nausea And Vomiting 01/25/22 03/28/22 Unknown History sodium phosphates 19 gram-7 118 ml [place] Q24H PRN Constipation 01/25/22 03/28/22 Unknown History gram/118 mL enema (Fleet Enema) clozapine 50 mg tablet 50 mg PO BEDTIME 03/28/22 03/28/22 03/28/22 History docusate sodium 100 mg capsule 100 mg PO BID 03/28/22 03/28/22 03/28/22 History (Colace) lamotrigine 100 mg tablet 1 tab PO BID 03/28/22 03/28/22 03/28/22 History Physical Exam Vital Signs and Narrative: Vital Signs: BMI result Body Mass Index 31.3 Gen: Appears be in no acute distress HEENT: NCAT, Moist mucosa. Pulmonary: Vesicular breath sounds, fair air entry CVS: Normal S1-S2 Abdomen: BS+, Soft, Nontender Extremities: Warm well perfused ; right lower extremity exam limited secondary to the pain. Neurovascularly intact. Shortened and externally rotated. Neuro: Alert and awake. Results Labs CBC and Chem 7: 03/28/22 19:53 03/28/22 19:53 Labs: Laboratory Results - last 24 hr 03/28/22 03/28/22 03/28/22 19:53 19:53 19:53 MCV 87.6 MCH 28.4 MCHC 32.5 RDW 14.5 Plt Count 307 D MPV 9.7 Immature Gran % (Auto) 0.2 Neut % (Auto) 74.8 H Lymph % (Auto) 15.8 L [place] % (Auto) 6.1 Eos % (Auto) 2.8 Baso % (Auto) 0.3 Lymph # (Auto) 1.4 [place] # (Auto) 0.6 Eos # (Auto) 0.3 Baso # (Auto) 0.0 Abs Immat Gran (auto) 0.02 Absolute Neuts (auto) 6.7 Absolute Nucleated RBC 0.000 Nucleated RBC % (auto) 0.0 Anion Gap 12 Estim Creat Clear Calc TNP Estimated GFR > 60 Random Glucose 113 Calcium 9.3 D Magnesium 2.2 Total Bilirubin 0.7 AST 32 H D ALT 29 Alkaline Phosphatase 145 H D Troponin I High Sens < 3.5 Total Protein 6.3 L Albumin 3.6 COVID-19 (OK) COVID-19 Clin Com 03/28/22 19:53 MCV MCH MCHC RDW Plt Count MPV Immature Gran % (Auto) Neut % (Auto) Lymph % (Auto) [place] % (Auto) Eos % (Auto) Baso % (Auto) Lymph # (Auto) [place] # (Auto) Eos # (Auto) Baso # (Auto) Abs Immat Gran (auto) Absolute Neuts (auto) Absolute Nucleated RBC Nucleated RBC % (auto) Anion Gap Estim Creat Clear Calc Estimated GFR Random Glucose Calcium Magnesium Total Bilirubin AST ALT Alkaline Phosphatase Troponin I High Sens Total Protein Albumin COVID-19 (OK) Negative COVID-19 Clin Com See Note Imaging Radiologist's Impressions: Impressions Chest X-Ray 03/28/22 18:45 IMPRESSION: Impacted and minimally angulated laterally right femoral neck fracture. No dislocation. Unremarkable chest exam. No acute fracture involving the right tibia and fibula. Femur X-Ray 03/28/22 18:45 IMPRESSION: Impacted and minimally angulated laterally right femoral neck fracture. No dislocation. Unremarkable chest exam. No acute fracture involving the right tibia and fibula. Pelvis X-Ray 03/28/22 18:45 IMPRESSION: Impacted and minimally angulated laterally right femoral neck fracture. No dislocation. Unremarkable chest exam. No acute fracture involving the right tibia and fibula. Tibia/Fibula X-Ray 03/28/22 18:45 IMPRESSION: Impacted and minimally angulated laterally right femoral neck fracture. No dislocation. Unremarkable chest exam. No acute fracture involving the right tibia and fibula. Head CT 03/28/22 19:10 IMPRESSION: No acute intracranial process seen. Left parietal occipital lobe encephalomalacia with craniotomy unchanged to previous study 01/25/2022. Mild cerebral and cerebellar volume loss. Assessment and Plan (1) Hip fx: Status: Acute Plan 62-year-old female with a past medical history of chondrocostal syndrome, mood disorder, OCD, Raynaud syndrome, aphasia, hyperlipidemia, GERD, TBI, dementia presented from the [facility] with a chief complaint of fall. Imaging showed right femoral neck fracture. Admitted to the hospital for further management. Right femoral neck fracture: Orthopedics aware of the patient Pain control Fall precautions Preop evaluation: Patient is low risk for intermittently surgery. History of mood disorder, OCD, dementia: Continue home clozapine, lamotrigine. DVT prophylaxis: SCD boots Code status: DNR. Okay to intubate. Confirmed with the patient's healthcare proxy. Quality Stroke Does the patient have a stroke diagnosis?: No VTE Prior VTE?: No VTE Risk Level:: Medical - moderate - high VTE Device Contraindication: N/A - Device Ordered VTE Drug Contraindication: Treatment Not Indicated
[2022-03-28 20:56] VITALS: BP 111/52; PULSE 92; RESP 16; TEMP 37; O2SAT 92
--- NOTE | 2022-03-28 21:12 | PHA.MEDREC ---
Pharmacy Consult ? Medication Reconciliation Pharmacy has completed the medication reconciliation Patient from [facility]. Contacted [facility] RN and patient received both AM and HS meds , including clozaril. Due to mental status changes patients psychiatrist is tapering clozaril (currently on 50 mg at bedtime) and other psych meds. .
[2022-03-29] VITALS (42 sets, daily range): BP systolic 73–101; BP diastolic 28–55; PULSE 71–87; RESP 6–18; TEMP 36–36.6; O2SAT 88–100; BMI 25.9
--- NOTE | 2022-03-29 06:41 | PC.NURSE ---
Received patient from main ER to overflow bed 6. Patient lethargic, but arousable. Pain with movement to right lower extremity. good pulses right pedal pulses. Patient changed from brief - pericare done, pt incont of large amt urine. Purewick put on patient. Patient NPO - for a question of surgery. HR 70's, SR on monitor. Bed alarm put on for safety. Call marie given to patient.
[2022-03-29 07:55] LABS: MANUAL DIFF FLAG NO
[2022-03-29 07:57] LABS: Basophils Percent Auto 0.5 % (0-2); Eosinophils Absolute Auto 0.3 X10*3/uL (0.0-0.4); Eosinophils Percent Auto 5.3 % (0-4); Hematocrit 41.7 % (37.0-47.0); Hemoglobin 13.4 g/dl (12.0-16.0); Imm Gran Abs Auto 0.03 X10*3/uL (0.00-0.03); Imm Gran Pct Auto 0.5 % (0.0-0.4); Lymphocytes Absolute Auto 1.5 X10*3/uL (1.2-4.9); Lymphocytes Percent Auto 24.8 % (20-40); Mean Corpuscular HGB Conc 32.1 g/dl (31.0-35.0); Mean Corpuscular Hemoglobin 28.7 pg (27.0-33.0); Mean Corpuscular Volume 89.3 fL (80.0-98.0); Mean Platelet Volume 9.7 fL (9.4-12.3); Monocytes Absolute Auto 0.4 X10*3/uL (0.1-1.2); Monocytes Percent Auto 6.3 % (2-11); Neutrophils Absolute Auto 3.9 x10*3/uL (2.0-8.3); Neutrophils Percent Auto 62.6 % (45-73); Platelet Count 306 X10*3/uL (160-400); Red Blood Count 4.67 X10*6/uL (4.20-5.50); Red Cell Distribution Width 15.1 % (11.0-16.0); White Blood Count 6.2 X10*3/uL (4.8-10.8)
[2022-03-29 08:08] LABS: Anion Gap 13 (12-20); Blood Urea Nitrogen 9 mg/dL (9-16); Calcium 9.1 mg/dL (8.4-10.2); Carbon Dioxide 24 mmol/L (22-29); Chloride 109 mmol/L (96-108); Creatinine Clr Calc Pharmacy 87.6; Estimated Glomerular Filt Rate > 60; Glucose Random 94 mg/dL (60-115); Potassium 4.4 mmol/L (3.3-5.1); Sodium 142 mmol/L (135-145)
[2022-03-29] MEDS: 0.9 % Sodium Chloride Flush 3 ML SYRINGE IVFLUSH ×2 (11:42→21:41)
--- NOTE | 2022-03-29 11:46 | PC.NURSE ---
1100-pt assessed. at bedside. pt lethargic, confused x2, pt does know her name, but dozing off quickly while answering. TAN, denies N/T x4. pt states, she has pain in LUQ and RT leg, but unable to determine at what level based on lethargy. IV line flushed. Ortho PA called and wanted to keep pt NPO for possible surgery today on Rt hip. VSS. Lung sounds clear A&P throughout bilaterally. bowel sounds present, abdomen rounded. Pulses +2 x4, no edema noted. Pt has remained NPO since admission.
--- NOTE | 2022-03-29 12:00 | HO.PM.IMPN ---
Subjective Subjective Date of Service: 03/29/22 Interval History: No acute issues overnight; minimally verbal (at baseline) Review of Systems Unable to obtain Physical Exam Vital Signs: Vital Signs: Last Vital Signs Temp 97.5 F 03/29/22 06:09 Pulse 72 03/29/22 07:30 Resp 12 03/29/22 07:30 BP 99/50 L 03/29/22 07:30 Pulse Ox 97 03/29/22 07:30 O2 Del Method 03/29/22 07:30 O2 Flow Rate 2 03/29/22 07:30 BMI result Body Mass Index 31.3 Const: Other: Somnolent but arousable; appears uncomfortable Resp: Other: Clear to auscultation bilaterally no rales rhonchi or wheezes Cardio: Other: No S4; positive S1-S2; no S3 murmurs rubs or gallops GI: Other: Soft nontender nondistended normoactive bowel sounds Extrem: Other: No edema bilaterally Objective Data Active Medications Acetaminophen (Acetaminophen 325 Mg Tablet) 650 mg PO Q6H PRN PRN Reason: Pain, Mild (Pain Scale 1-3) Acetaminophen (Acetaminophen 325 Mg Tablet) 650 mg PO Q6H PRN PRN Reason: Pain/FEVER Bisacodyl (Bisacodyl 10 Mg Supp.Rect) 10 mg NC Q24H PRN PRN Reason: Constipation Clozapine (Clozapine 25 Mg Tablet) 50 mg PO BEDTIME [facility] Docusate Sodium (Docusate Sodium 100 Mg Capsule) 100 mg PO BID [facility] Last Admin: 03/29/22 11:41 Dose: Not Given Documented By: RITA Non-Admin Reason: NPO Famotidine (Famotidine 20 Mg Tablet) 40 mg PO DAILY [facility] Last Admin: 03/29/22 11:41 Dose: Not Given Documented By: RITA Non-Admin Reason: NPO Hydromorphone HCl (Hydromorphone Hcl 0.5 Mg/0.5 Ml Syringe) 0.5 mg IVPUSH Q4H PRN; Protocol PRN Reason: Pain, Severe (Pain Scale 7-10) Ibuprofen (Ibuprofen 600 Mg Tablet) 600 mg PO Q8H PRN PRN Reason: Pain (Scale Score 4-6) Lamotrigine (Lamotrigine 100 Mg Tablet) 100 mg PO BID [facility] Last Admin: 03/29/22 11:41 Dose: Not Given Documented By: RITA Non-Admin Reason: NPO Loperamide HCl (Loperamide Hcl 2 Mg Capsule) 2 mg PO Q6H PRN PRN Reason: Diarrhea Loratadine (Loratadine 10 Mg Tablet) 10 mg PO DAILY [facility] Last Admin: 03/29/22 11:41 Dose: Not Given Documented By: RITA Non-Admin Reason: NPO Melatonin (Melatonin 3 Mg Tablet) 6 mg PO BEDTIME PRN PRN Reason: Insomnia Omeprazole (Omeprazole 20 Mg Capsule.Dr) 20 mg PO DAILY@0630 [facility] Last Admin: 03/29/22 06:20 Dose: Not Given Documented By: VICKIE Non-Admin Reason: NPO Senna (Sennosides 8.6 Mg Tablet) 17.2 mg PO BEDTIME PRN PRN Reason: Constipation Senna (Sennosides 8.6 Mg Tablet) 8.6 mg PO Q24H PRN PRN Reason: Constipation Sodium Biphosphate/Sodium Phosphate (Sodium Phosphate,Henry-Dibasic 133 Ml Enema) 118 ml NC Q24H PRN PRN Reason: Constipation Sodium Chloride (0.9 % Sodium Chloride Flush 3 Ml Syringe) 3 ml IVFLUSH QSHIFT [facility] Last Admin: 03/29/22 11:42 Dose: 3 ml Documented By: RITA Sodium Chloride (Sodium Chloride 0.65 % Nasal 44 Ml Sprbtl) 1 spray NOSTRIL-B Q8H PRN PRN Reason: Dry Nasal Passages Labs CBC & Chem 7: 03/29/22 07:25 03/29/22 07:25 Labs: Laboratory Results - last 24 hr 03/28/22 03/28/22 03/28/22 19:53 19:53 19:53 MCV 87.6 MCH 28.4 MCHC 32.5 RDW 14.5 Plt Count 307 D MPV 9.7 Immature Gran % (Auto) 0.2 Neut % (Auto) 74.8 H Lymph % (Auto) 15.8 L Henry % (Auto) 6.1 Eos % (Auto) 2.8 Baso % (Auto) 0.3 Lymph # (Auto) 1.4 Henry # (Auto) 0.6 Eos # (Auto) 0.3 Baso # (Auto) 0.0 Abs Immat Gran (auto) 0.02 Absolute Neuts (auto) 6.7 Absolute Nucleated RBC 0.000 Nucleated RBC % (auto) 0.0 Anion Gap 12 Estim Creat Clear Calc TNP Estimated GFR > 60 Random Glucose 113 Calcium 9.3 D Magnesium 2.2 Total Bilirubin 0.7 AST 32 H D ALT 29 Alkaline Phosphatase 145 H D Total Creatine Kinase 26 D Troponin I High Sens < 3.5 Total Protein 6.3 L Albumin 3.6 COVID-19 (OK) COVID-19 Clin Com 03/28/22 03/29/22 03/29/22 19:53 07:25 07:25 MCV 89.3 MCH 28.7 MCHC 32.1 RDW 15.1 Plt Count 306 MPV 9.7 Immature Gran % (Auto) 0.5 H Neut % (Auto) 62.6 Lymph % (Auto) 24.8 Henry % (Auto) 6.3 Eos % (Auto) 5.3 H Baso % (Auto) 0.5 Lymph # (Auto) 1.5 Henry # (Auto) 0.4 Eos # (Auto) 0.3 Baso # (Auto) 0.0 Abs Immat Gran (auto) 0.03 Absolute Neuts (auto) 3.9 Absolute Nucleated RBC 0.000 Nucleated RBC % (auto) 0.0 Anion Gap 13 Estim Creat Clear Calc 87.6 Estimated GFR > 60 Random Glucose 94 Calcium 9.1 Magnesium Total Bilirubin AST ALT Alkaline Phosphatase Total Creatine Kinase Troponin I High Sens Total Protein Albumin COVID-19 (OK) Negative COVID-19 Clin Com See Note Assessment and Plan (1) Fracture of neck of humerus: Status: Acute (2) Traumatic brain injury: Status: Acute (3) Dementia: Status: Acute Plan 62-year-old female with a past medical history of chondrocostal syndrome, mood disorder, OCD, Raynaud syndrome, aphasia, hyperlipidemia, GERD, TBI, dementia? presented from the [facility] with a chief complaint of fall.? Initial x-ray demonstrated impacted and minimally angulated right femoral neck fracture. 1.Right femoral neck fracture -and p.o... . To OR today -patient is a moderate but acceptable cardiovascular risk for planned procedure and may proceed as per Orthopedics. There are no medically prohibitive issues 2. TBI/dementia -continue outpatient therapies DNR DNI Anticoagulation as per Ortho Patient requires ongoing hospitalization for repair of right femoral neck fracture Quality Stroke Does the patient have a stroke diagnosis?: No VTE Prior VTE?: No VTE Risk Level:: Medical - moderate - high VTE Device Contraindication: N/A - Device Ordered VTE Drug Contraindication: Treatment Not Indicated
--- NOTE | 2022-03-29 13:03 | PC.NURSE ---
this nurse obtained report from shannon, [facility] called- gave report to [facility] and pt was then brought from 6 to [facility].
--- NOTE | 2022-03-29 13:07 | HO.ANESPROP2 ---
[facility] Active Problems Active Problems: All Active Problems (Updated 03/28/22 @ 20:45 by HARIKA Reyes) Fall (Acute) Fracture of neck of humerus (Acute) Hip fx (Acute) Gallstones (Acute) Acute calculous cholecystitis (Acute) Traumatic brain injury (Acute) Dementia (Acute) Abnormal LFTs (Acute) Incisional hernia (Acute) Past Medical History Medical History Aphasia Chondrocostal junction syndrome Delusional disorder Disruptive mood dysregulation disorder Gallstones GERD (gastroesophageal reflux disease) Hx of migraine headaches Hyperlipidemia Myopia Obsessive compulsive disorder Raynauds syndrome Family History Family History Maternal Grandmother Breast cancer Family history of problems with anesthesia: No Surgical History Surgical History History of incisional hernia repair Hx laparoscopic cholecystectomy History of Problems with Anesthesia: No Social History Social History Household Members: Caregiver Housing: Assisted Living Facility Do you presently have visiting nurse or other home services: No Unable to assess alcohol history related to: Unable to respond Alcohol intake: never Patient Tobacco Use Status: Never used Tobacco e-Cigarette/Vaping Use: Never Used Advance Directives Date on File: 12/03/21 service: No Current occupational status: disabled Meds Allergies Allergy/AdvReac Type Severity Reaction Status Date / Time No Known Allergies Allergy Verified 03/19/22 10:39 Active Medications: Current Medications Acetaminophen (Acetaminophen 325 Mg Tablet) 650 mg PO Q6H PRN PRN Reason: Pain, Mild (Pain Scale 1-3) Acetaminophen (Acetaminophen 325 Mg Tablet) 650 mg PO Q6H PRN PRN Reason: Pain/FEVER Bisacodyl (Bisacodyl 10 Mg Supp.Rect) 10 mg NM Q24H PRN PRN Reason: Constipation Clozapine (Clozapine 25 Mg Tablet) 50 mg PO BEDTIME [facility] Docusate Sodium (Docusate Sodium 100 Mg Capsule) 100 mg PO BID [facility] Last Admin: 03/29/22 11:41 Dose: Not Given Famotidine (Famotidine 20 Mg Tablet) 40 mg PO DAILY [facility] Last Admin: 03/29/22 11:41 Dose: Not Given Hydromorphone HCl (Hydromorphone Hcl 0.5 Mg/0.5 Ml Syringe) 0.5 mg IVPUSH Q4H PRN; Protocol PRN Reason: Pain, Severe (Pain Scale 7-10) Ibuprofen (Ibuprofen 600 Mg Tablet) 600 mg PO Q8H PRN PRN Reason: Pain (Scale Score 4-6) Lamotrigine (Lamotrigine 100 Mg Tablet) 100 mg PO BID [facility] Last Admin: 03/29/22 11:41 Dose: Not Given Loperamide HCl (Loperamide Hcl 2 Mg Capsule) 2 mg PO Q6H PRN PRN Reason: Diarrhea Loratadine (Loratadine 10 Mg Tablet) 10 mg PO DAILY [facility] Last Admin: 03/29/22 11:41 Dose: Not Given Melatonin (Melatonin 3 Mg Tablet) 6 mg PO BEDTIME PRN PRN Reason: Insomnia Omeprazole (Omeprazole 20 Mg Capsule.Dr) 20 mg PO DAILY@0630 [facility] Last Admin: 03/29/22 06:20 Dose: Not Given Senna (Sennosides 8.6 Mg Tablet) 17.2 mg PO BEDTIME PRN PRN Reason: Constipation Senna (Sennosides 8.6 Mg Tablet) 8.6 mg PO Q24H PRN PRN Reason: Constipation Sodium Biphosphate/Sodium Phosphate (Sodium Phosphate,[place]-Dibasic 133 Ml Enema) 118 ml NM Q24H PRN PRN Reason: Constipation Sodium Chloride (0.9 % Sodium Chloride Flush 3 Ml Syringe) 3 ml IVFLUSH QSHIFT [facility] Last Admin: 03/29/22 11:42 Dose: 3 ml Sodium Chloride (Sodium Chloride 0.65 % Nasal 44 Ml Sprbtl) 1 spray NOSTRIL-B Q8H PRN PRN Reason: Dry Nasal Passages Home Medications Medication Instructions Recorded Confirmed Last Taken Type acetaminophen 325 mg tablet 650 mg PO Q6H PRN Pain/FEVER 03/17/21 03/28/22 Unknown History famotidine 40 mg tablet 40 mg PO DAILY 03/17/21 03/28/22 03/28/22 History ibuprofen 600 mg tablet 600 mg PO Q8H PRN Pain (Scale 03/17/21 03/28/22 Unknown History Score 4-6) loperamide 2 mg capsule 2 mg PO Q6H PRN Diarrhea 03/17/21 03/28/22 Unknown History omeprazole 20 mg capsule,delayed 20 mg PO DAILY@0630 03/17/21 03/28/22 03/28/22 History release sennosides 8.6 mg tablet (Natural 8.6 mg PO Q24H PRN Constipation 03/17/21 03/28/22 Unknown History Senna Laxative) sodium chloride 0.65 % nasal spray 1 spray intranasal Q8H PRN Dry 03/17/21 03/28/22 Unknown History aerosol ([place] Nasal) Nasal Passages calcium carbonate 500 mg calcium 500 mg PO Q8H PRN Heartburn 12/22/21 03/28/22 Unknown History (1,250 mg) chewable tablet cetirizine 10 mg tablet 10 mg PO DAILY 12/22/21 03/28/22 03/28/22 History bisacodyl 10 mg rectal suppository 10 mg NM Q24H PRN Constipation 01/25/22 03/28/22 Unknown History ondansetron HCl 4 mg tablet 4 mg PO Q6H PRN Nausea And Vomiting 01/25/22 03/28/22 Unknown History sodium phosphates 19 gram-7 118 ml NM Q24H PRN Constipation 01/25/22 03/28/22 Unknown History gram/118 mL enema (Fleet Enema) clozapine 50 mg tablet 50 mg PO BEDTIME 03/28/22 03/28/22 03/28/22 History docusate sodium 100 mg capsule 100 mg PO BID 03/28/22 03/28/22 03/28/22 History (Colace) lamotrigine 100 mg tablet 1 tab PO BID 03/28/22 03/28/22 03/28/22 History Exam Exam Date and Time: March 29, 2022 1307 Height,Weight and Vital Signs: Height 5 ft 7 in Weight 90.718 kg Last Vital Signs Temp 97.5 F 03/29/22 12:53 Pulse 75 03/29/22 12:53 Resp 12 03/29/22 12:53 BP 95/46 L 03/29/22 12:53 Pulse Ox 100 03/29/22 12:53 O2 Del Method 03/29/22 12:53 O2 Flow Rate 2 03/29/22 12:53 Pertinent Lab Results Pertinent Lab Results: Laboratory Tests 03/28/22 03/28/22 03/28/22 19:53 19:53 19:53 WBC 9.0 RBC 4.36 Hgb 12.4 Hct 38.2 MCV 87.6 MCH 28.4 MCHC 32.5 RDW 14.5 Plt Count 307 D MPV 9.7 Immature Gran % (Auto) 0.2 Neut % (Auto) 74.8 H Lymph % (Auto) 15.8 L [place] % (Auto) 6.1 Eos % (Auto) 2.8 Baso % (Auto) 0.3 Lymph # (Auto) 1.4 [place] # (Auto) 0.6 Eos # (Auto) 0.3 Baso # (Auto) 0.0 Abs Immat Gran (auto) 0.02 Absolute Neuts (auto) 6.7 Absolute Nucleated RBC 0.000 Nucleated RBC % (auto) 0.0 Sodium 142 Potassium 4.0 Chloride 105 Carbon Dioxide 29 Anion Gap 12 BUN 9 Creatinine 0.82 Estim Creat Clear Calc TNP Estimated GFR > 60 Random Glucose 113 Calcium 9.3 D Magnesium 2.2 Total Bilirubin 0.7 AST 32 H D ALT 29 Alkaline Phosphatase 145 H D Total Creatine Kinase 26 D Troponin I High Sens < 3.5 Total Protein 6.3 L Albumin 3.6 COVID-19 (OK) COVID-19 Clin Com 03/28/22 03/29/22 03/29/22 19:53 07:25 07:25 WBC 6.2 RBC 4.67 Hgb 13.4 Hct 41.7 MCV 89.3 MCH 28.7 MCHC 32.1 RDW 15.1 Plt Count 306 MPV 9.7 Immature Gran % (Auto) 0.5 H Neut % (Auto) 62.6 Lymph % (Auto) 24.8 [place] % (Auto) 6.3 Eos % (Auto) 5.3 H Baso % (Auto) 0.5 Lymph # (Auto) 1.5 [place] # (Auto) 0.4 Eos # (Auto) 0.3 Baso # (Auto) 0.0 Abs Immat Gran (auto) 0.03 Absolute Neuts (auto) 3.9 Absolute Nucleated RBC 0.000 Nucleated RBC % (auto) 0.0 Sodium 142 Potassium 4.4 Chloride 109 H Carbon Dioxide 24 Anion Gap 13 BUN 9 Creatinine 0.78 Estim Creat Clear Calc 87.6 Estimated GFR > 60 Random Glucose 94 Calcium 9.1 Magnesium Total Bilirubin AST ALT Alkaline Phosphatase Total Creatine Kinase Troponin I High Sens Total Protein Albumin COVID-19 (OK) Negative COVID-19 Clin Com See Note Airway Mallampati Class: II (Small mouth opening) TM Dist: >3cm Neck ROM: Full Loose/Missing/Broken Teeth: No Heart: RRR Lungs: CTA Assessment and Plan Assessment Anesthesia Assessment: Anesthesia Plan Discussed Final Anesthetic Review Family History of Problems with Anesthesia: No History of Problems with Anesthesia: No NPO: Yes ASA Class: II Final Preanesthetic Review: Meds/Allgs Chart Reviewed, Consent Obtained/Reviewed, Anes Risks/Benef Reviewed and DNR Form (If Appl.) Patient Risk: Low Procedure Risk: Intermediate Anesthetic Plan Anesthetic Plan: GA Disposition: Standard PACU
--- NOTE | 2022-03-29 13:22 | PM.HPOR ---
History of Present Illness History of Present Illness Date of Service: 03/29/22 <Kimberly Keller PA-C - Last Filed: 03/29/22 13:25> 03/29/22 <Onofre Lopez MD - Last Filed: 03/29/22 17:26> Chief complaint: Hip Fracture <Kimberly Keller PA-C - Last Filed: 03/29/22 13:25> Narrative: Jacklyn Krishna is a 62 year old female who presented to the emergency department after sustaining mechanical fall the fall at rehab. Patient is currently a long-term care resident at [facility] due to her past medical history of a TBI. Patient is unable to recall the events surrounding her fall. ED notes reveal that the patient was found on her knee then complained of right hip pain. She was brought to the emergency department where x-rays were obtained and was found to have a right femoral neck fracture. Orthopedics was consulted for further evaluation and treatment and the patient was admitted to the medicine service. <Kimberly Keller PA-C - Last Filed: 03/29/22 13:25> Review of Systems Review of Systems: Yes Unobtainable due to mental status <Kimberly Keller PA-C - Last Filed: 03/29/22 13:25> [facility] Past Medical History Medical History: Medical History Aphasia Chondrocostal junction syndrome Delusional disorder Disruptive mood dysregulation disorder Gallstones GERD (gastroesophageal reflux disease) Hx of migraine headaches Hyperlipidemia Myopia Obsessive compulsive disorder Raynauds syndrome <Kimberly Keller PA-C - Last Filed: 03/29/22 13:25> Family History Family History: Family History Maternal Grandmother Breast cancer <Kimberly Keller PA-C - Last Filed: 03/29/22 13:25> Surgical History Surgical History: Surgical History History of incisional hernia repair Hx laparoscopic cholecystectomy <Kimberly Keller PA-C - Last Filed: 03/29/22 13:25> Social History Social History: Social History Household Members: Caregiver Housing: Assisted Living Facility Do you presently have visiting nurse or other home services: No Unable to assess alcohol history related to: Unable to respond Alcohol intake: never Patient Tobacco Use Status: Never used Tobacco e-Cigarette/Vaping Use: Never Used Advance Directives Date on File: 12/03/21 service: No Current occupational status: disabled <Kimberly Keller PA-C - Last Filed: 03/29/22 13:25> Meds Allergies/Adverse reactions: Allergies Allergy/AdvReac Type Severity Reaction Status Date / Time No Known Allergies Allergy Verified 03/19/22 10:39 <Kimberly Keller PA-C - Last Filed: 03/29/22 13:25> Active Medications: Current Medications Acetaminophen (Acetaminophen 325 Mg Tablet) 650 mg PO Q6H PRN PRN Reason: Pain, Mild (Pain Scale 1-3) Acetaminophen (Acetaminophen 325 Mg Tablet) 650 mg PO Q6H PRN PRN Reason: Pain/FEVER Bisacodyl (Bisacodyl 10 Mg Supp.Rect) 10 mg TN Q24H PRN PRN Reason: Constipation Clozapine (Clozapine 25 Mg Tablet) 50 mg PO BEDTIME [facility] Docusate Sodium (Docusate Sodium 100 Mg Capsule) 100 mg PO BID [facility] Last Admin: 03/29/22 11:41 Dose: Not Given Famotidine (Famotidine 20 Mg Tablet) 40 mg PO DAILY [facility] Last Admin: 03/29/22 11:41 Dose: Not Given Hydromorphone HCl (Hydromorphone Hcl 0.5 Mg/0.5 Ml Syringe) 0.5 mg IVPUSH Q4H PRN; Protocol PRN Reason: Pain, Severe (Pain Scale 7-10) Ibuprofen (Ibuprofen 600 Mg Tablet) 600 mg PO Q8H PRN PRN Reason: Pain (Scale Score 4-6) Lamotrigine (Lamotrigine 100 Mg Tablet) 100 mg PO BID [facility] Last Admin: 03/29/22 11:41 Dose: Not Given Loperamide HCl (Loperamide Hcl 2 Mg Capsule) 2 mg PO Q6H PRN PRN Reason: Diarrhea Loratadine (Loratadine 10 Mg Tablet) 10 mg PO DAILY [facility] Last Admin: 03/29/22 11:41 Dose: Not Given Melatonin (Melatonin 3 Mg Tablet) 6 mg PO BEDTIME PRN PRN Reason: Insomnia Omeprazole (Omeprazole 20 Mg Capsule.Dr) 20 mg PO DAILY@629 [facility] Last Admin: 03/29/22 06:20 Dose: Not Given Senna (Sennosides 8.6 Mg Tablet) 17.2 mg PO BEDTIME PRN PRN Reason: Constipation Senna (Sennosides 8.6 Mg Tablet) 8.6 mg PO Q24H PRN PRN Reason: Constipation Sodium Biphosphate/Sodium Phosphate (Sodium Phosphate,[place]-Dibasic 133 Ml Enema) 118 ml TN Q24H PRN PRN Reason: Constipation Sodium Chloride (0.9 % Sodium Chloride Flush 3 Ml Syringe) 3 ml IVFLUSH QSHIFT [facility] Last Admin: 03/29/22 11:42 Dose: 3 ml Sodium Chloride (Sodium Chloride 0.65 % Nasal 44 Ml Sprbtl) 1 spray NOSTRIL-B Q8H PRN PRN Reason: Dry Nasal Passages <Kimberly Keller PA-C - Last Filed: 03/29/22 13:25> Home medications: Home Medications Medication Instructions Recorded Confirmed Last Taken Type acetaminophen 325 mg tablet 650 mg PO Q6H PRN Pain/FEVER 03/17/21 03/28/22 Unknown History famotidine 40 mg tablet 40 mg PO DAILY 03/17/21 03/28/22 03/28/22 History ibuprofen 600 mg tablet 600 mg PO Q8H PRN Pain (Scale 03/17/21 03/28/22 Unknown History Score 4-6) loperamide 2 mg capsule 2 mg PO Q6H PRN Diarrhea 03/17/21 03/28/22 Unknown History omeprazole 20 mg capsule,delayed 20 mg PO DAILY@62903/17/21 03/28/22 03/28/22 History release sennosides 8.6 mg tablet (Natural 8.6 mg PO Q24H PRN Constipation 03/17/21 03/28/22 Unknown History Senna Laxative) sodium chloride 0.65 % nasal spray 1 spray intranasal Q8H PRN Dry 03/17/21 03/28/22 Unknown History aerosol ([place] Nasal) Nasal Passages calcium carbonate 500 mg calcium 500 mg PO Q8H PRN Heartburn 12/22/21 03/28/22 Unknown History (1,250 mg) chewable tablet cetirizine 10 mg tablet 10 mg PO DAILY 12/22/21 03/28/22 03/28/22 History bisacodyl 10 mg rectal suppository 10 mg TN Q24H PRN Constipation 01/25/22 03/28/22 Unknown History ondansetron HCl 4 mg tablet 4 mg PO Q6H PRN Nausea And Vomiting 01/25/22 03/28/22 Unknown History sodium phosphates 19 gram-7 118 ml TN Q24H PRN Constipation 01/25/22 03/28/22 Unknown History gram/118 mL enema (Fleet Enema) clozapine 50 mg tablet 50 mg PO BEDTIME 03/28/22 03/28/22 03/28/22 History docusate sodium 100 mg capsule 100 mg PO BID 03/28/22 03/28/22 03/28/22 History (Colace) lamotrigine 100 mg tablet 1 tab PO BID 03/28/22 03/28/22 03/28/22 History <Kimberly Keller PA-C - Last Filed: 03/29/22 13:25> Physical Exam Vital Signs: Vital Signs: Last Vital Signs Temp 97.7 F 03/29/22 13:12 Pulse 72 03/29/22 13:12 Resp 18 03/29/22 13:12 BP 96/42 L 03/29/22 13:12 Pulse Ox 99 03/29/22 13:12 O2 Del Method 03/29/22 13:12 O2 Flow Rate 2 03/29/22 12:53 BMI result Body Mass Index 31.3 <Kimberly Keller PA-C - Last Filed: 03/29/22 13:25> Const: General: cooperative, healthy appearing, comfortable, no acute distress, well developed, alert and awake <Kimberly Keller PA-C - Last Filed: 03/29/22 13:25> HEENT: Head: Yes normal to inspection, Yes normocephalic and Yes atraumatic <Kimberly Keller PA-C - Last Filed: 03/29/22 13:25> Eyes: General: appearance normal, both eyes and all related structures <Kimberly Keller PA-C - Last Filed: 03/29/22 13:25> Neck: Neck: Yes normal visual inspection and Yes no lymphadenopathy <Kimberly Keller PA-C - Last Filed: 03/29/22 13:25> Resp: Effort & Inspection: normal respiratory effort and able to speak in complete sentences <Kimberly Keller PA-C - Last Filed: 03/29/22 13:25> Cardio: Rate: regular rate <Kimberly Keller PA-C - Last Filed: 03/29/22 13:25> Peripheral pulses: Peripheral pulses 2+ throughout <Kimberly Keller PA-C - Last Filed: 03/29/22 13:25> GI: Inspection: Yes normal to inspection <Kimberly Keller PA-C - Last Filed: 03/29/22 13:25> Palpation (GI): Soft to palpation <Kimberly Keller PA-C - Last Filed: 03/29/22 13:25> Skin: General skin exam: no rashes or lesions noted <Kimberly Keller PA-C - Last Filed: 03/29/22 13:25> Extrem: Other: Right lower extremity is shortened and externally rotated. Skin is intact with no abrasions or lesions. Pedal pulse intact. <Kimberly Keller PA-C - Last Filed: 03/29/22 13:25> Results Labs Result Diagrams: : 03/29/22 07:25 03/29/22 07:25 <Kimberly Keller PA-C - Last Filed: 03/29/22 13:25> Labs: Abnormal lab results 03/28/22 03/28/22 03/29/22 Range/Units 19:53 19:53 07:25 Immature Gran % (Auto) 0.5 H (0.0-0.4) % Neut % (Auto) 74.8 H (45-73) % Lymph % (Auto) 15.8 L (20-40) % Eos % (Auto) 5.3 H (0-4) % Chloride (96-108) mmol/L AST 32 H D (5-31) U/L Alkaline Phosphatase 145 H D (39-117) U/L Total Protein 6.3 L (6.5-8.0) g/dL 03/29/22 Range/Units 07:25 Immature Gran % (Auto) (0.0-0.4) % Neut % (Auto) (45-73) % Lymph % (Auto) (20-40) % Eos % (Auto) (0-4) % Chloride 109 H (96-108) mmol/L AST (5-31) U/L Alkaline Phosphatase (39-117) U/L Total Protein (6.5-8.0) g/dL H & H 03/28/22 03/29/22 Range/Units 19:53 07:25 Hgb 12.4 13.4 (12.0-16.0) g/dl Hct 38.2 41.7 (37.0-47.0) % All other labs normal. <Kimberly Keller PA-C - Last Filed: 03/29/22 13:25> Assessment and Plan (1) Closed right hip fracture: Status: Acute <Kimberly Keller PA-C - Last Filed: 03/29/22 13:25> I discussed the case with Dr. Lopez and explained the extent of the injury to the patient's healthcare proxy Mary israel and options available which include surgical intervention. I explained the procedure in detail along with the length of recovery and rehab course. I explained the risk, benefits and alternatives. Risk including, but not limited to infection, blood clots, bleeding, non union or malunion and nerve/tissue damage to surrounding areas. I answered all their questions and with their understanding they have consented to move forward with Operative Fixation of right hip. The patient will be T&S, med clearance obtained and NPO Healthcare proxy Mary Israel be reached at [phone]. <Kimberly Keller PA-C - Last Filed: 03/29/22 13:25> Quality Stroke Does the patient have a stroke diagnosis?: No <LANDON Ramires Last Filed: 03/29/22 13:25> VTE Prior VTE?: No <JULIUS RamiresC - Last Filed: 03/29/22 13:25> VTE Risk Level:: Medical - moderate - high <Kimberly Keller PA-C - Last Filed: 03/29/22 13:25> VTE Device Contraindication: N/A - Device Ordered <Kimberly Keller PA-C - Last Filed: 03/29/22 13:25> VTE Drug Contraindication: Treatment Not Indicated <Kimberly Keller PA-C - Last Filed: 03/29/22 13:25> Procedures Date of Service Date of Service: 03/29/22 <Kimberly Keller PA-C - Last Filed: 03/29/22 13:25>
--- NOTE | 2022-03-29 17:27 | PM.OP ---
Brief Operative Note Date of Service: 03/29/22 Pre-op diagnosis: Right femoral neck fracture Post-op diagnosis: same Procedure: Right hip hemiarthroplasty Implants: [place] # [id number] with - bipolar Surgeon: Onofre Lopez MD Anesthesia: GETA and local Was an Core Driller Helper used for this Procedure?: No Estimated blood loss (mL): 300 IV fluids (mL): 800 Pathology: other Condition: stable Disposition: PACU
[2022-03-29] MEDS: ceFAZolin Sodium/Dextrose,Iso 2 GM/50 ML PIGGYBACK IV (19:34)
[2022-03-30] VITALS (9 sets, daily range): BP systolic 81–98; BP diastolic 42–58; PULSE 67–97; RESP 15–20; TEMP 36–36.7; O2SAT 93–99
[2022-03-30] MEDS: 0.9 % Sodium Chloride Flush 3 ML SYRINGE IVFLUSH ×4 (00:01→20:16)
--- NOTE | 2022-03-30 04:33 | PC.NURSE ---
Pt arrived on unit from OR around 19:55. Pt drowsy yet able to arouse with loud voice and gentle shake. However, pt would quickly fall back to sleep. Pt was unable to answer most admission questions. Denied pain when assessed throughout the night. Pt slept all night. This am is arousable to voice but again falls right back to sleep and does not answer any questions other that if she is having pain. Bed alarm on and camera in room for safety. Right hip surgical dressing remains CD&I. Faint PP. Sequential boots on. Will continue to monitor.
[2022-03-30] MEDS: Omeprazole 20 MG CAPSULE.DR PO (05:31)
[2022-03-30] MEDS: lamoTRIgine 100 MG TABLET PO ×2 (06:03→20:13)
[2022-03-30] MEDS: Famotidine 20 MG TABLET 40 MG PO (06:03)
[2022-03-30] MEDS: Docusate Sodium 100 MG CAPSULE PO ×2 (06:04→20:13)
[2022-03-30] MEDS: Loratadine 10 MG TABLET PO (06:04)
[2022-03-30 06:45] LABS: Basophils Percent Auto 0.1 % (0-2); Hematocrit 38.2 % (37.0-47.0); Hemoglobin 12.5 g/dl (12.0-16.0); Imm Gran Abs Auto 0.05 X10*3/uL (0.00-0.03); Imm Gran Pct Auto 0.4 % (0.0-0.4); Lymphocytes Absolute Auto 0.7 X10*3/uL (1.2-4.9); MANUAL DIFF FLAG SCAN; Mean Corpuscular HGB Conc 32.7 g/dl (31.0-35.0); Mean Corpuscular Hemoglobin 29.1 pg (27.0-33.0); Mean Corpuscular Volume 88.8 fL (80.0-98.0); Mean Platelet Volume 10.3 fL (9.4-12.3); Monocytes Absolute Auto 0.5 X10*3/uL (0.1-1.2); Monocytes Percent Auto 3.7 % (2-11); Neutrophils Absolute Auto 12.2 x10*3/uL (2.0-8.3); Neutrophils Percent Auto 90.8 % (45-73); Platelet Count 360 X10*3/uL (160-400); Red Cell Distribution Width 14.5 % (11.0-16.0); SCAN SMEAR FLAG 1; White Blood Count 13.4 X10*3/uL (4.8-10.8)
[2022-03-30 07:06] LABS: Alanine Aminotransferase 23 U/L (0-31); Albumin Level 3.7 g/dL (3.5-5.0); Alkaline Phosphatase 136 U/L (39-117); Anion Gap 16 (12-20); Aspartate Amino Transferase 29 U/L (5-31); Bilirubin Total 0.6 mg/dL (0.0-1.0); Blood Urea Nitrogen 10 mg/dL (9-16); Calcium 9.5 mg/dL (8.4-10.2); Carbon Dioxide 23 mmol/L (22-29); Chloride 107 mmol/L (96-108); Creatinine Clr Calc Pharmacy 89.3; Estimated Glomerular Filt Rate > 60; Glucose Fasting 125 mg/dL (60-99); Potassium 4.8 mmol/L (3.3-5.1); Sodium 141 mmol/L (135-145); Total Protein 6.7 g/dL (6.5-8.0)
[2022-03-30 07:25] LABS: SLIDE REVIEW VERIFIED
--- NOTE | 2022-03-30 07:35 | PM.PNORT ---
Subjective Subjective Date of Service: 03/30/22 Interval history: POD1 s/p rt hip tracy. No overnight events. Pain is well managed. No additional complaints. Physical Exam Vital Signs: Vital Signs: Last Vital Signs Temp 97.2 F 03/30/22 07:25 Pulse 67 03/30/22 07:25 Resp 16 03/30/22 07:25 BP 90/48 L 03/30/22 07:25 Pulse Ox 97 03/30/22 07:25 O2 Del Method 03/30/22 07:25 O2 Flow Rate 3 03/30/22 07:25 BMI result Body Mass Index 25.9 Const: General: cooperative, healthy appearing, comfortable, no acute distress, well developed, alert and awake Orientation/consciousness: patient oriented x3 HEENT: Head: Yes normal to inspection, Yes normocephalic and Yes atraumatic Eyes: General: appearance normal, both eyes and all related structures Neck: Neck: Yes normal visual inspection and Yes no lymphadenopathy Resp: Effort & Inspection: normal respiratory effort and able to speak in complete sentences Cardio: Rate: regular rate Peripheral pulses: Peripheral pulses 2+ throughout GI: Inspection: Yes normal to inspection Palpation (GI): Soft to palpation Skin: General skin exam: no rashes or lesions noted Neuro: General: patient oriented x3 Extrem: Other: Right hip aquacel is clean, dry, and intact. NVI. Psych: Mental Status: mental status grossly normal Procedures Date of Service Date of Service: 03/30/22 Progress Note: A&P Assessment and plan (1) Closed right hip fracture: Status: Acute Assessment and Plan: Continue pain mgmnt Begin Lovenox for dvt ppx begin PT for rt hip tracy wbat Dispo planning-Pending PT eval, pain mgmnt Time Spent With Patient Time: Total time spent is greater than 50% in coordination of care (as documented) at patient's floor/unit and/or counseling patient: Quality Stroke Does the patient have a stroke diagnosis?: No VTE Prior VTE?: No VTE Risk Level:: Medical - moderate - high VTE Device Contraindication: N/A - Device Ordered VTE Drug Contraindication: Treatment Not Indicated
[2022-03-30] MEDS: Acetaminophen 325 MG TABLET 650 MG PO ×2 (10:00→16:09)
[2022-03-30] MEDS: Ibuprofen 600 MG TABLET PO ×2 (10:00→20:16)
--- NOTE | 2022-03-30 10:56 | HO.POSTANES ---
Post Anesthesia Evaluation Post Anesthesia Evaluation Vital Signs: Vital Signs Temp Pulse Resp BP Pulse Ox O2 Del Method O2 Flow Rate 03/30/22 07:25 97.2 F 67 16 90/48 L 97 Nasal Cannula 3 03/30/22 04:00 97.4 F 90 16 96/58 L 93 Nasal Cannula 2.5 03/30/22 00:00 96.8 F 73 18 98/54 L 96 Nasal Cannula 2.5 Anesthesia: General Endotracheal-GETA Mental Status: Awake Pain Control: Satisfactory Nausea/Vomiting: None Hydration: Adequate Anesthesia-Related Issues: No Anes. Related Issues
[2022-03-30] MEDS: Enoxaparin Sodium 40 MG/0.4 ML SYRINGE SUBCUT (12:09)
--- NOTE | 2022-03-30 15:10 | HO.PM.IMPN ---
Subjective Subjective Date of Service: 03/30/22 Interval History: Doing well postop. More alert than yesterday Review of Systems Unable to obtain Physical Exam Vital Signs: Vital Signs: Last Vital Signs Temp 97.2 F 03/30/22 11:41 Pulse 93 03/30/22 11:41 Resp 15 03/30/22 11:41 BP 88/42 L 03/30/22 11:54 Pulse Ox 99 03/30/22 11:41 O2 Del Method 03/30/22 11:41 O2 Flow Rate 2 03/30/22 11:41 BMI result Body Mass Index 25.9 Const: Other: Somnolent but arousable; appears uncomfortable Resp: Other: Clear to auscultation bilaterally no rales rhonchi or wheezes Cardio: Other: No S4; positive S1-S2; no S3 murmurs rubs or gallops GI: Other: Soft nontender nondistended normoactive bowel sounds Extrem: Other: No edema bilaterally Objective Data Active Medications Acetaminophen (Acetaminophen 325 Mg Tablet) 650 mg PO Q6H PRN PRN Reason: Pain, Mild (Pain Scale 1-3) Last Admin: 03/30/22 10:00 Dose: 650 mg Documented By: SAMIR Acetaminophen (Acetaminophen 325 Mg Tablet) 650 mg PO Q6H PRN PRN Reason: Pain/FEVER Albuterol Sulfate (Albuterol Sulfate (0.083%) 2.5 Mg/3 Ml Vial.Neb) 2.5 mg INHALE ONCE PRN PRN Reason: Wheezing Bisacodyl (Bisacodyl 10 Mg Supp.Rect) 10 mg OR Q24H PRN PRN Reason: Constipation Clozapine (Clozapine 25 Mg Tablet) 50 mg PO BEDTIME [facility] Last Admin: 03/29/22 21:41 Dose: Not Given Documented By: SHIV Non-Admin Reason: Congestion Docusate Sodium (Docusate Sodium 100 Mg Capsule) 100 mg PO BID [facility] Last Admin: 03/30/22 06:04 Dose: 100 mg Documented By: SHIV Enoxaparin Sodium (Enoxaparin Sodium 40 Mg/0.4 Ml Syringe) 40 mg SUBCUT Q24H [facility] Last Admin: 03/30/22 12:09 Dose: 40 mg Documented By: SAMIR Famotidine (Famotidine 20 Mg Tablet) 40 mg PO DAILY [facility] Last Admin: 03/30/22 06:03 Dose: 40 mg Documented By: SHIV Fentanyl (Fentanyl Citrate/Pf 100 Mcg/2 Ml Vial) 25 mcg IVPUSH Q5M PRN; Protocol PRN Reason: Pain, Moderate (Pain Scale 4-6 Hydromorphone HCl (Hydromorphone Hcl 0.5 Mg/0.5 Ml Syringe) 0.5 mg IVPUSH Q4H PRN; Protocol PRN Reason: Pain, Severe (Pain Scale 7-10) Hydromorphone HCl (Hydromorphone Hcl 0.5 Mg/0.5 Ml Syringe) 0.25 mg IVPUSH Q5M PRN; Protocol PRN Reason: Pain, Severe (Pain Scale 7-10) Promethazine HCl 6.25 mg/ (Sodium Chloride) 50.25 mls @ 201 mls/hr IV ONCE PRN PRN Reason: Nausea and Vomiting Cefazolin Sodium/Dextrose (Ancef) 2 gm in 50 mls @ 100 mls/hr IV POSTOP [facility] Last Infusion: 03/29/22 20:04 Dose: 0 mls/hr Documented By: SHIV Ibuprofen (Ibuprofen 600 Mg Tablet) 600 mg PO Q8H PRN PRN Reason: Pain (Scale Score 4-6) Last Admin: 03/30/22 10:00 Dose: 600 mg Documented By: SAMIR Lamotrigine (Lamotrigine 100 Mg Tablet) 100 mg PO BID [facility] Last Admin: 03/30/22 06:03 Dose: 100 mg Documented By: SHIV Loperamide HCl (Loperamide Hcl 2 Mg Capsule) 2 mg PO Q6H PRN PRN Reason: Diarrhea Loratadine (Loratadine 10 Mg Tablet) 10 mg PO DAILY [facility] Last Admin: 03/30/22 06:04 Dose: 10 mg Documented By: SHIV Melatonin (Melatonin 3 Mg Tablet) 6 mg PO BEDTIME PRN PRN Reason: Insomnia Omeprazole (Omeprazole 20 Mg Capsule.) 20 mg PO DAILY@30 [facility] Last Admin: 03/30/22 05:31 Dose: 20 mg Documented By: SHIV Senna (Sennosides 8.6 Mg Tablet) 17.2 mg PO BEDTIME PRN PRN Reason: Constipation Senna (Sennosides 8.6 Mg Tablet) 8.6 mg PO Q24H PRN PRN Reason: Constipation Sodium Biphosphate/Sodium Phosphate (Sodium Phosphate,[place]-Dibasic 133 Ml Enema) 118 ml OR Q24H PRN PRN Reason: Constipation Sodium Chloride (0.9 % Sodium Chloride Flush 3 Ml Syringe) 3 ml IVFLUSH QSHIFT [facility] Last Admin: 03/30/22 06:09 Dose: 3 ml Documented By: SHIV Sodium Chloride (Sodium Chloride 0.65 % Nasal 44 Ml Sprbtl) 1 spray NOSTRIL-B Q8H PRN PRN Reason: Dry Nasal Passages Labs CBC & Chem 7: 03/30/22 06:14 03/30/22 06:14 Labs: Laboratory Results - last 24 hr 03/30/22 03/30/22 06:14 06:14 MCV 88.8 MCH 29.1 MCHC 32.7 RDW 14.5 Plt Count 360 MPV 10.3 Immature Gran % (Auto) 0.4 Neut % (Auto) 90.8 H Lymph % (Auto) 5.0 L [place] % (Auto) 3.7 Eos % (Auto) 0.0 Baso % (Auto) 0.1 Lymph # (Auto) 0.7 L [place] # (Auto) 0.5 Eos # (Auto) 0.0 Baso # (Auto) 0.0 Abs Immat Gran (auto) 0.05 H Absolute Neuts (auto) 12.2 H Absolute Nucleated RBC 0.000 Nucleated RBC % (auto) 0.0 Smear Tech's Comments VERIFIED Anion Gap 16 Estim Creat Clear Calc 89.3 Estimated GFR > 60 Fasting Glucose 125 H Calcium 9.5 Total Bilirubin 0.6 AST 29 ALT 23 Alkaline Phosphatase 136 H Total Protein 6.7 Albumin 3.7 Assessment and Plan (1) Closed right hip fracture: Status: Acute (2) Dementia: Status: Acute Plan 62-year-old female with a past medical history of chondrocostal syndrome, mood disorder, OCD, Raynaud syndrome, aphasia, hyperlipidemia, GERD, TBI, dementia? presented from the [facility] with a chief complaint of fall.? Initial x-ray demonstrated impacted and minimally angulated right femoral neck fracture. 1.Right femoral neck fracture -as per Orthopedics -Lovenox for DVT prophylaxis 2. TBI/dementia -continue outpatient therapies DNR DNI Anticoagulation as per Ortho Patient requires ongoing hospitalization for repair of right femoral neck fracture Quality Stroke Does the patient have a stroke diagnosis?: No VTE Prior VTE?: No VTE Risk Level:: Medical - moderate - high VTE Device Contraindication: N/A - Device Ordered VTE Drug Contraindication: Treatment Not Indicated
[2022-03-30] MEDS: cloZAPine 25 MG TABLET 50 MG PO (20:13)
[2022-03-31] VITALS (7 sets, daily range): BP systolic 80–97; BP diastolic 40–55; PULSE 76–90; RESP 17–18; TEMP 36.1–36.6; O2SAT 94–99
[2022-03-31] MEDS: Omeprazole 20 MG CAPSULE.DR PO (05:53)
[2022-03-31 06:18] LABS: MANUAL DIFF FLAG NO
[2022-03-31 06:20] LABS: Basophils Percent Auto 0.2 % (0-2); Eosinophils Absolute Auto 0.3 X10*3/uL (0.0-0.4); Eosinophils Percent Auto 3.4 % (0-4); Hemoglobin 10.5 g/dl (12.0-16.0); Imm Gran Abs Auto 0.03 X10*3/uL (0.00-0.03); Imm Gran Pct Auto 0.4 % (0.0-0.4); Lymphocytes Absolute Auto 1.9 X10*3/uL (1.2-4.9); Lymphocytes Percent Auto 23.3 % (20-40); Mean Corpuscular HGB Conc 32.8 g/dl (31.0-35.0); Mean Corpuscular Hemoglobin 28.9 pg (27.0-33.0); Mean Corpuscular Volume 88.2 fL (80.0-98.0); Mean Platelet Volume 9.7 fL (9.4-12.3); Monocytes Absolute Auto 0.7 X10*3/uL (0.1-1.2); Monocytes Percent Auto 8.1 % (2-11); Neutrophils Absolute Auto 5.2 x10*3/uL (2.0-8.3); Neutrophils Percent Auto 64.6 % (45-73); Platelet Count 294 X10*3/uL (160-400); Red Blood Count 3.63 X10*6/uL (4.20-5.50); Red Cell Distribution Width 14.7 % (11.0-16.0)
[2022-03-31 07:07] LABS: Alanine Aminotransferase 13 U/L (0-31); Alkaline Phosphatase 102 U/L (39-117); Anion Gap 12 (12-20); Aspartate Amino Transferase 17 U/L (5-31); Bilirubin Total 0.3 mg/dL (0.0-1.0); Blood Urea Nitrogen 9 mg/dL (9-16); Calcium 8.4 mg/dL (8.4-10.2); Carbon Dioxide 28 mmol/L (22-29); Chloride 109 mmol/L (96-108); Creatinine Clr Calc Pharmacy 83.3; Estimated Glomerular Filt Rate > 60; Glucose Fasting 102 mg/dL (60-99); Potassium 3.8 mmol/L (3.3-5.1); Sodium 145 mmol/L (135-145); Total Protein 5.2 g/dL (6.5-8.0)
--- NOTE | 2022-03-31 08:08 | MHC.CM.PN ---
LATE ENTRY NOTE FOR 03/31/22, CM MET W/PT HOWEVER PT UNABLE TO ANSWER QUESTIONS, PT FELL AT [facility] S/P HIP FX AND REPAIR, [facility] PROVIDE [facility]HAB SERVICES TOR PT AND PLAN WILL BE TO RETURN. MESSAGE SENT TO [facility] VIA [facility] W/CHIDI D/C TODAY 03/31/22.
[2022-03-31] MEDS: 0.9 % Sodium Chloride Flush 3 ML SYRINGE IVFLUSH (08:43)
[2022-03-31] MEDS: Acetaminophen 325 MG TABLET 650 MG PO (08:43)
[2022-03-31] MEDS: lamoTRIgine 100 MG TABLET PO (08:43)
[2022-03-31] MEDS: Famotidine 20 MG TABLET 40 MG PO (08:43)
[2022-03-31] MEDS: Docusate Sodium 100 MG CAPSULE PO (08:43)
[2022-03-31] MEDS: Loratadine 10 MG TABLET PO (08:43)
[2022-03-31] MEDS: HYDROmorphone HCl 0.5 MG/0.5 ML SYRINGE IVPUSH (08:44)
--- NOTE | 2022-03-31 10:09 | MHC.CM.PN ---
CONSERVATORSHIP OF PERSON AND PROPERTY, ALONG WITH RIGHT TO PLACE IN LTC FACILITY, RECEIVED AND UPLOADED INTO [employer]. COPY ON PATIENT CHART FOR MEDICAL RECORDS
--- NOTE | 2022-03-31 10:19 | PM.PNORT ---
Subjective Subjective Date of Service: 03/31/22 Interval history: postop day 2 status post right hip hemiarthroplasty. Pain is well managed. No overnight events. No additional complaints. Physical Exam Vital Signs: Vital Signs: Last Vital Signs Temp 97.1 F 03/31/22 07:44 Pulse 77 03/31/22 07:44 Resp 18 03/31/22 07:44 BP 82/42 L 03/31/22 07:44 Pulse Ox 98 03/31/22 07:44 O2 Del Method 03/31/22 07:44 O2 Flow Rate 2 03/30/22 11:41 BMI result Body Mass Index 25.9 Const: General: cooperative, healthy appearing and no acute distress Resp: Effort & Inspection: normal respiratory effort and able to speak in complete sentences Cardio: Rate: regular rate Peripheral pulses: Peripheral pulses 2+ throughout GI: Palpation (GI): Soft to palpation Skin: Lesions: no lesions Rashes: no rashes Extrem: Other: Right hip Aquacel dressing is clean dry and intact. Patient is able to dorsiflex and plantar flex. Sensation reportedly intact. NVI. Procedures Date of Service Date of Service: 03/31/22 Progress Note: A&P Assessment and plan (1) Closed right hip fracture: Status: Acute Assessment and Plan: Continue pain mgmnt Continue Lovenox for dvt ppx continue PT for right hip hemiarthroplasty Dispo planning-Pain mgmnt. Patient is cleared from orthopedic standpoint to return back to correction facility once medically cleared. Time Spent With Patient Time: Total time spent is greater than 50% in coordination of care (as documented) at patient's floor/unit and/or counseling patient: Quality Stroke Does the patient have a stroke diagnosis?: No VTE Prior VTE?: No VTE Risk Level:: Medical - moderate - high VTE Device Contraindication: N/A - Device Ordered VTE Drug Contraindication: Treatment Not Indicated
--- NOTE | 2022-03-31 14:02 | P.DS_ITS ---
DS: Providers Provider Date of Service: 03/31/22 Date of admission: 03/28/22 20:32 Primary care physician: Unknown Physician Consults: 03/28/22 20:31 Consult to Orthopedics Routine Consulting Provider: Onofre Lopez Reason for consultation: fem neck fx DS: Diagnosis Discharge Diagnosis (1) Closed right hip fracture: Status: Acute DS: Summary Hospital Course Hospital Course: 62-year-old female with a past medical history of chondrocostal syndrome, mood disorder, OCD, Raynaud syndrome, aphasia, hyperlipidemia, GERD, TBI, dementia? presented from the [facility] with a chief complaint of fall.?XRay demonstrated a right femoral neck fracture. On 03/29, patient underwent a right hip hemiarthroplasty without incident. Her postop. Was unremarkable and she is medically acceptable for discharge per Orthopedics. Time Spent with Patient Time attestation: Total time spent providing and/or coordinating discharge services: Discharge coordination time: Greater than 30 minutes Quality: Safe Use of Opioids Does Pt have an Active Cancer Diagnosis on the Problem List?: No Quality: Stroke Does the patient have a stroke diagnosis?: No Physical Exam Vital Signs: Vital Signs: Last Vital Signs Temp 96.9 F 03/31/22 11:36 Pulse 76 03/31/22 11:36 Resp 18 03/31/22 11:36 BP 91/41 L 03/31/22 11:36 Pulse Ox 96 03/31/22 13:00 O2 Del Method 03/31/22 13:00 O2 Flow Rate 2 03/30/22 11:41 BMI result Body Mass Index 25.9 Const: Other: Somnolent but arousable; appears uncomfortable Resp: Other: Clear to auscultation bilaterally no rales rhonchi or wheezes Cardio: Other: No S4; positive S1-S2; no S3 murmurs rubs or gallops GI: Other: Soft nontender nondistended normoactive bowel sounds Extrem: Other: No edema bilaterally DS: Data Data Completed and Pending Completed studies during hospitalization [Text1]: Procedures Drainage of Gallbladder with Drainage Device, Percutaneous Approach (01/07/22) Introduction of Vasopressor into Peripheral Vein, Percutaneous Approach (01/07/22) Release Peritoneum, Open Approach (01/07/22) Repair Abdominal Wall, Open Approach (01/07/22) Resection of Gallbladder, Percutaneous Endoscopic Approach (01/07/22) Pending studies at discharge: Pending at discharge 03/29/22 14:45 Surgical [PTH] Routine Labs on day of discharge: Laboratory Results - last 24 hr 03/31/22 03/31/22 06:12 06:16 WBC 8.0 RBC 3.63 L Hgb 10.5 L Hct 32.0 L MCV 88.2 MCH 28.9 MCHC 32.8 RDW 14.7 Plt Count 294 MPV 9.7 Immature Gran % (Auto) 0.4 Neut % (Auto) 64.6 Lymph % (Auto) 23.3 Tripp % (Auto) 8.1 Eos % (Auto) 3.4 Baso % (Auto) 0.2 Lymph # (Auto) 1.9 Tripp # (Auto) 0.7 Eos # (Auto) 0.3 Baso # (Auto) 0.0 Abs Immat Gran (auto) 0.03 Absolute Neuts (auto) 5.2 Absolute Nucleated RBC 0.000 Nucleated RBC % (auto) 0.0 Sodium 145 Potassium 3.8 D Chloride 109 H Carbon Dioxide 28 Anion Gap 12 BUN 9 Creatinine 0.75 Estim Creat Clear Calc 83.3 Estimated GFR > 60 Fasting Glucose 102 H Calcium 8.4 D Total Bilirubin 0.3 AST 17 D ALT 13 Alkaline Phosphatase 102 D Total Protein 5.2 L D Albumin 3.0 L Discharge Plan Discharge Patient Disposition: Xfer [facility] Discharge Diagnosis: Right femoral neck fracture Referrals: Kimberly Keller PA-C [Physician Therapist Physical] - 1 Week (April 16 at 1:30) Physician,Zahida J [Primary Care Provider] - 1 Week Discharge Medications: Continued cetirizine 10 mg Tablet 10 mg PO DAILY calcium carbonate 500 mg calcium (1,250 mg) Tablet,Chewable 500 mg PO Q8H PRN (Reason: Heartburn) bisacodyl 10 mg Suppository 10 mg DE Q24H PRN (Reason: Constipation) ondansetron HCl 4 mg Tablet 4 mg PO Q6H PRN (Reason: Nausea And Vomiting) Fleet Enema 19-7 gram/118 mL Enema 118 ml DE Q24H PRN (Reason: Constipation) docusate sodium [Colace] 100 mg Capsule 100 mg PO BID lamotrigine 100 mg tablet 1 tab PO BID clozapine 50 mg Tablet 50 mg PO BEDTIME acetaminophen 325 mg tablet 650 mg PO Q6H PRN (Reason: Pain/FEVER) famotidine 40 mg tablet 40 mg PO DAILY ibuprofen 600 mg tablet 600 mg PO Q8H PRN (Reason: Pain (Scale Score 4-6)) loperamide 2 mg capsule 2 mg PO Q6H PRN (Reason: Diarrhea) sodium chloride [[place] Nasal] 0.65 % aerosol,spray 1 spray intranasal Q8H PRN (Reason: Dry Nasal Passages) omeprazole 20 mg capsule,delayed release(DR/EC) 20 mg PO DAILY@0630 sennosides [Natural Senna Laxative] 8.6 mg tablet 8.6 mg PO Q24H PRN (Reason: Constipation) Discharge Orders: Discharge Order (Routine); Ordered 03/31/22 Ordered By: Christian Hicks Diet: Advance to usual diet Activity on Discharge: As tolerated Stand Alone Forms: Patient Portal Discharge page Care Plan Goals: Physical therapy evaluation back at [facility]; weight-bearing as tolerated Health Concerns: Resume all pre-hospital therapies and medication Plan of Treatment: As dictated by Physical therapy evaluation Assessment: See discharge summary
--- NOTE | 2022-03-31 14:38 | MHC.CM.PN ---
[facility] BRADLEY DAV[facility], PATIENT TO LEAVE FOR 1600 TRANSPORT REQUEST. AWAITING COVID SWAB
[2022-03-31 15:31] LABS: COVID-19 Test Negative (Negative)
--- NOTE | 2022-04-07 10:02 | P.OP_ITS ---
Operative Note Operative Note Date of Service: 03/29/22 Narrative: Date of Service: 03/29/22 Pre-op diagnosis: Right femoral neck fracture Post-op diagnosis: same Procedure: Right hip hemiarthroplasty Implants: [place] # [phone] with - bipolar Surgeon: Onofre Lopez MD Anesthesia: GETA and local Was an Technical Publications Manager used for this Procedure?: No Estimated blood loss (mL): 300 IV fluids (mL): 800 Pathology: other Condition: stable Disposition: PACU Procedure in detail: Patient was brought to the operative room placed in the left lateral decubitus position. All bony prominences were well padded and the was prepped and draped in standard sterile fashion. IV antibiotics per weight were administered and a time-out was called to identify proper site proper procedure proper surgeon. Radiographs were available and confirmed. I began by making a curvilinear incision over the posterolateral aspect of the greater trochanter. Dissection was taken down to the tensor fascia which was incised in line with the incision and a Charnley retractor was placed. The hip was internally rotated and the external rotators were identified. All vessels in the area were cauterized and a full-thickness capsular/external rotator layer was developed in a hockey-stick fashion starting just proximal to the piriformis. This layer was tagged and the displaced femoral neck fracture was identified. Clean-up cuts was performed while protecing the posterolateral soft tissues and the head was removed and measured (46 mm) on the back table. I then copiously irrigated the acetabulum and removed all bony fragments. Once this was done I used a cookie cutter to lateralize and a Charnley awl to identify the canal and then sequentially broached up to a 127 deg #4. I then trialed with a standard head and a bipolar component matching the femoral head size. I was satisfied with the range of motion and stability and length using a -. Therefore I removed all instrumentation and copiously irrigated. I then placed my final femoral implant and then retrialed. I was satisfied with the stability and length. My final bipolar componenents were then placed. I closed the capsular layer with FiberWire and then, after a three minute iodine soak. I performed a layered closure with nilesh on skin. The patient was placed in sterile dressing extubated brought to recovery room in stable condition there were no known complications.
== END 2022-03-31 16:30 | DRG 522 ==
LOC: HO.ED 20:45 → HO.EDOVER 20:50 → HO.S3 03-29 16:27
PROVIDERS: Orthopaedic Surgery; Physician Assistant; Admitting Provider Hospitalist; Emergency Provider Emergency Medicine; PCP Hospitalist; Visit Provider Hospitalist
PROC: (CPT 27125; principal; 2022-03-29 13:00)
DX: S72.001A Fracture of unspecified part of neck of right femur, initial encounter for closed fracture (principal); W18.30XA Fall on same level, unspecified, initial encounter; K21.9 Gastro-esophageal reflux disease without esophagitis; Z66 Do not resuscitate; E78.5 Hyperlipidemia, unspecified; F42.9 Obsessive-compulsive disorder, unspecified; I73.00 Raynaud's syndrome without gangrene; F03.90 Unspecified dementia, unspecified severity, without behavioral disturbance, psychotic disturbance, mood disturbance, and anxiety; Z20.822 Contact with and (suspected) exposure to COVID-19; Z87.820 Personal history of traumatic brain injury; Z79.899 Other long term (current) drug therapy
CPT/HCPCS: 36415; 70450; 71045; 72170; 72190; 73552; 73590; 80048; 80053; 82550; 83735; 84484; 85025; 87635; 88305; 88311; 93005; 97162; 97166; 97530; 99285; C1776; J0690; J1100; J1170; J1650; J2250; J2370; J2405; J3010

== ENCOUNTER 2022-05-14 12:39 | Outpatient (REF) | payer MEDICARE, MEDICAID, SELFPAY ==
--- NOTE | ~2022-05-14 | XR_ITS ---
EXAMINATION: XR HIP, RIGHT CLINICAL INFORMATION: Hip pain. COMPARISON: Pelvic radiograph 03/30/2022, radiographs right hip 03/28/2022. TECHNIQUE: AP view pelvis is performed along with 3 views of the right hip. FINDINGS: There is no fracture or dislocation or destructive process. Right hip prosthesis is intact. There is no destructive process or osteolysis. The left hip is unremarkable. There is no diastases SI joints or pubis. There are degenerative changes lower lumbar spine with disc narrowing and vertebral spurring L3-L4-L5 and L5-S1. XR/XR hip RT w PEL1V IMPRESSION: -Degenerative disc changes lower lumbar spine. -Right hip prosthesis. Hardware intact. No osteolysis.
== END 2022-05-14 12:40 | disposition home or self-care (01) ==
LOC: HO.HOSX 12:39
PROVIDERS: Visit Provider Physician Assistant
DX: M25.551 Pain in right hip (principal)
CPT/HCPCS: 73502

== ENCOUNTER 2022-05-19 10:57 | Outpatient (REF) | payer MEDICARE, MEDICAID, SELFPAY ==
--- NOTE | ~2022-05-19 | MM_ITS ---
EXAMINATION: MM SCREENING DIGITAL BREAST TOMOSYNTHESIS, BILATERAL CLINICAL INFORMATION: Screening. Asymptomatic. COMPARISON: Mammography: 03/25/2021 (new baseline) TECHNIQUE: Digital breast tomosynthesis is performed in both the craniocaudal and mediolateral oblique views along with computer-aided detection (CAD). Synthesized 2D images are generated from the tomosynthesis. Technically challenging exam requiring 2 technologists for positioning. Images tailored to patient capabilities with inherent limitations. FINDINGS: The breasts are heterogeneously dense, which may obscure small masses (ACR BI-RADS breast composition Category c). There is no significant change from prior new baseline exam. No interval mass or architectural abnormality or abnormal calcifications. Limited evaluation axilla. Skin contours are smooth. MM/MM tomosynthesis screening BI IMPRESSION: -No mammographic evidence of malignancy. -Technically challenging exam with inherent limitations. ASSESSMENT: BI-RADS 2: Benign RECOMMENDATION: Routine annual mammography screening. This patient's information was entered into a reminder system with a target due date for their next mammogram.
== END 2022-05-19 10:58 | disposition home or self-care (01) ==
LOC: HO.MAMMO 10:57
PROVIDERS: Visit Provider Hospitalist
DX: Z12.31 Encounter for screening mammogram for malignant neoplasm of breast (principal)
CPT/HCPCS: 77063; 77067

== ENCOUNTER 2022-06-01 15:54 | Outpatient (REF) | payer MEDICARE, MEDICAID, SELFPAY ==
[2022-06-02 07:24] LABS: CT PCR NOT DETECTED (Not Detect.); NG PCR NOT DETECTED (Not Detect.)
[2022-06-02 08:35] LABS: BV Int Neg Control Negative (Negative); BV Int Pos Control Positive (Positive)
== END 2022-06-01 15:55 | disposition home or self-care (01) ==
LOC: HO.LAB 15:54
PROVIDERS: Visit Provider Advanced Practice Midwife
DX: Z20.2 Contact with and (suspected) exposure to infections with a predominantly sexual mode of transmission (principal); Z86.19 Personal history of other infectious and parasitic diseases
CPT/HCPCS: 87480; 87491; 87510; 87591; 87660; 99212

== ENCOUNTER 2022-06-25 13:04 | Outpatient (REF) | payer MEDICARE, MEDICAID, SELFPAY ==
--- NOTE | ~2022-06-25 | XR_ITS ---
EXAMINATION: XR HIP, RIGHT CLINICAL INFORMATION: Hip pain COMPARISON: 05/14/2022 TECHNIQUE: Two views of the right hip. AP pelvis. FINDINGS: Stable appearance of the right hip arthroplasty. The components are in stable position and alignment without evidence of loosening or fracture. No new abnormality. XR/XR hip RT w PEL1V IMPRESSION: Stable appearance of the right hip arthroplasty. No sign of complication.
== END 2022-06-25 13:05 | disposition home or self-care (01) ==
LOC: HO.HOSX 13:04
PROVIDERS: Visit Provider Physician Assistant
DX: M25.551 Pain in right hip (principal)
CPT/HCPCS: 73502

== ENCOUNTER 2023-03-23 10:07 | Outpatient (REF) | payer MEDICARE, MEDICAID, SELFPAY ==
[2023-03-31 02:33] LABS: HPV mRNA E6/E7 rflx Not Detected (Not Detected)
== END 2023-03-23 10:08 | disposition home or self-care (01) ==
LOC: HO.LNP 10:07
PROVIDERS: PCP Hospitalist; Visit Provider Advanced Practice Midwife
DX: Z01.419 Encounter for gynecological examination (general) (routine) without abnormal findings (principal); Z11.51 Encounter for screening for human papillomavirus (HPV)
CPT/HCPCS: 87624; 88142

== ENCOUNTER 2023-07-29 11:45 | Outpatient (REF) | payer MEDICARE, MEDICAID, SELFPAY | END 2023-07-29 11:46 | disposition home or self-care (01) | LOC: HO.MAMMO 11:45 | PROVIDERS: Visit Provider Hospitalist | DX: Z12.31 Encounter for screening mammogram for malignant neoplasm of breast (principal) | CPT/HCPCS: 77063; 77067 ==

== ENCOUNTER → 2023-07-29 12:00 | Outpatient (BNV) | payer MEDICARE, MEDICAID, SELFPAY | PROVIDERS: Visit Provider Radiology Diagnostic Radiology | DX: Z12.31 Encounter for screening mammogram for malignant neoplasm of breast (principal) | CPT/HCPCS: 77063; 77067 ==

== ENCOUNTER 2024-06-28 09:58 | Outpatient (AMB) | payer MEDICARE, MEDICAID, SELFPAY ==
--- NOTE | 2024-06-28 10:14 | A.OFFVIS_ITS ---
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 She is doing well with no concerns. Attempting to eat a healthy diet. Use a walker, attends exercise class/instructions Currently not sexually active. Denies any vaginal dryness or irritation. Last pap smear; 2022, negative, prior history of positive HPV. Two negatives since. Last mammogram; 2022. Colonoscopy hx. is unknown. Family history of breast cancer. [facility] Medical History Potential exposure to STD Fracture of neck of humerus Hip fx Gallstones Acute calculous cholecystitis Gallstones Chondrocostal junction syndrome GERD (gastroesophageal reflux disease) Raynauds syndrome Myopia Hx of migraine headaches Disruptive mood dysregulation disorder Delusional disorder Hyperlipidemia Dementia Obsessive compulsive disorder Aphasia Traumatic brain injury Surgical History Hx laparoscopic cholecystectomy History of incisional hernia repair Family History Maternal Grandmother Breast cancer Social History Household Members: Other Household Members Other:: from [facility] Housing: Intermediate Housing Other:: [facility] Do you presently have visiting nurse or other home services: No Unable to assess alcohol history related to: Unable to respond Alcohol intake: never Comment: pt unable to describe pain, medicated with IV tylenol before transfer to [place] Patient Tobacco Use Status: Never used Tobacco e-Cigarette/Vaping Use: Never Used Advance Directives Date on File: 12/03/21 service: No Current occupational status: disabled Female Reproductive History Menstrual Date of last pap smear: 03/28/23 (neg pap and hpv) History of abnormal pap smear: Yes (03/23 +hpv, 03/24 neg pap and hpv) Date of Mammogram: 07/29/23 (Birad 1) Review of Systems Const All systems reviewed & are unremarkable except as noted in HPI and below Reports as per HPI Eyes Reports no additional complaints ENT Reports no additional complaints Card Reports no additional complaints Resp Reports no additional complaints GI Reports as per HPI and Reports no additional complaints Reports as per HPI Musc Reports no additional complaints Skin/Breast Reports as per HPI Neuro Reports no additional complaints Psych Reports no additional complaints Endo Reports no additional complaints Demetrius/Lymph Reports no additional complaints Aller/Immun Reports no additional complaints Physical Exam Vital Signs: Last Vital Signs BP 110/70 06/28/24 10:15 BMI result Body Mass Index 32.0 Const General: cooperative, healthy appearing, no acute distress, well developed and alert Orientation/consciousness: patient oriented x3 HEENT Head: Yes normal to inspection Eyes General: appearance normal, both eyes and all related structures Neck Neck: Yes normal visual inspection Thyroid: Thyroid normal Chest Chest palpation & inspection: normal inspection of the chest and other (no puckering, dimpling, peau de orange, retraction, discharge, masses) Breast/axilla inspection: normal inspection of the breasts Breast/axilla palpation: normal palpation of the breasts Resp Effort & Inspection: normal respiratory effort GI Inspection: Yes normal to inspection Palpation (GI): Soft to palpation Rectal Exam - Female: deferred General: Yes bladder normal to palpation External Female Exam: normal external appearance and normal appearance of the urethra Speculum Exam - Vagina: normal appearance of the vagina, normal palpation, normal vaginal discharge and vagina atrophic Speculum Exam - Cervix: normal appearance of the cervix and normal palpation Bimanual exam- vagina & uterus: normal bimanual exam, normal palpation, uterine size normal, bladder normal to palpation, normal palpation and non-tender Bimanual Exam- Adnexa, other: no masses Skin General skin exam: no rashes or lesions noted Rashes: no rashes Neuro General: patient oriented x3 Cognition (Neuro): normal cognition Extrem General: Yes normal to inspection Psych Attitude: cooperative Thought process: Normal thought process present Assessment & Plan Assessment & Plan (1) Encounter for well woman exam with routine gynecological exam: Code(s): Z01.419 - Encounter for gynecological examination (general) (routine) without abnormal findings Category: Medical Plan Discussed: Current recommendations for pap smears per ASCCP guidelines. Breast awareness, periodic self breast exams and yearly mammogram. Maintain a healthy lifestyle, well balanced diet including Calcium 1,200 mg and Vitamin D 600 IU daily, and routine exercise. Contact the office with any postmenopausal bleeding. Patient verbalizes understanding and agrees to the plan of care. She was given opportunity to ask questions and all questions were answered to the best of my ability. RTO in 1 year for annual journal entry audit clerk exam. This note is constructed using voice recognition software. While every effort has been made to ensure accuracy, metal fabricating supervisor errors may have been included. Coding Level of Care Code Est Pt Prev Care 40-64y(58985) Diagnoses Encounter for well woman exam with routine gynecological exam Z01.419
[2024-06-28 10:15] VITALS: BP 110/70; BMI 32.0
== END 2024-06-28 10:58 | disposition home or self-care (01) ==
LOC: HO.HWSW 09:58
PROVIDERS: Visit Provider Advanced Practice Midwife
DX: Z01.419 Encounter for gynecological examination (general) (routine) without abnormal findings (principal)
CPT/HCPCS: 99396

== ENCOUNTER → 2024-06-28 09:58 | Outpatient (BNVA) | payer MEDICARE, MEDICAID, SELFPAY | PROVIDERS: Visit Provider Advanced Practice Midwife | DX: Z01.419 Encounter for gynecological examination (general) (routine) without abnormal findings (principal) | CPT/HCPCS: 99396 ==

== ENCOUNTER → 2024-07-31 08:30 | Outpatient (BNV) | payer MEDICARE, MEDICAID, SELFPAY | PROVIDERS: PCP Hospitalist; Visit Provider Internal Medicine | DX: Z12.31 Encounter for screening mammogram for malignant neoplasm of breast (principal) | CPT/HCPCS: 77063; 77067 ==

== ENCOUNTER 2024-07-31 08:32 | Outpatient (REF) | payer MEDICARE, MEDICAID, SELFPAY ==
--- NOTE | ~2024-07-31 | MM_ITS ---
EXAMINATION: MM SCREENING DIGITAL BREAST TOMOSYNTHESIS, BILATERAL CLINICAL INFORMATION: Screening. Asymptomatic. COMPARISON: Mammography: Comparison is made with available priors TECHNIQUE: Digital breast mammography with tomosynthesis is performed in both the craniocaudal and mediolateral oblique views along with computer-aided detection (CAD). FINDINGS: The breasts are heterogeneously dense, which may obscure small masses (ACR BI-RADS breast composition Category c). Left: There are no significant masses, abnormal calcifications, or other abnormalities. Right: Focal asymmetry upper outer breast anterior to middle depth. No suspicious calcifications or other abnormal findings. MM/MM tomosynthesis screening BI IMPRESSION: Additional imaging is recommended ASSESSMENT: BI-RADS BI-RADS 0 - Incomplete: Needs additional Imaging. RECOMMENDATION: 1. Additional views of the right breast 2. Targeted ultrasound if warranted after review of the additional views. 3. Radiology department staff will contact the patient for additional imaging. Additional Imaging required This examination should not preclude the clinical evaluation of a suspicious palpable abnormality. This patient's information was entered into a reminder system with a target due date for their next mammogram. Electronically signed by: Modesta Dixon DO 08/08/2024 10:29 AM [facility]
== END 2024-07-31 08:33 | disposition home or self-care (01) ==
LOC: HO.MAMMO 08:32
PROVIDERS: PCP Hospitalist; Visit Provider Hospitalist
DX: Z12.31 Encounter for screening mammogram for malignant neoplasm of breast (principal)
CPT/HCPCS: 77063; 77067

== ENCOUNTER 2024-10-11 13:49 | Outpatient (REF) | payer MEDICARE, MEDICAID, SELFPAY ==
--- NOTE | ~2024-10-11 | US_ITS ---
EXAMINATION: MM DIAGNOSTIC DIGITAL BREAST TOMOSYNTHESIS, RIGHT Limited right breast ultrasound. CLINICAL INFORMATION: Call back from screening for focal asymmetry in the upper outer right breast. COMPARISON: Mammography: Comparison is made with prior available examinations. TECHNIQUE: Digital breast tomosynthesis is performed in both the craniocaudal and mediolateral oblique views along with computer-aided detection (CAD). Synthesized 2D images are generated from the tomosynthesis. Limited right breast ultrasound. FINDINGS: The breasts are heterogeneously dense, which may obscure small masses (ACR BI-RADS breast composition Category c). Focal asymmetry in the upper outer quadrant does not persist on additional imaging projections and likely represented overlapping breast tissue. There are no significant masses, abnormal calcifications, or other abnormalities. Targeted color Doppler ultrasound scanning in the upper breast from 10-2 o'clock demonstrates normal fibroglandular breast tissue. There is no sonographic abnormality. US/US breast RT limited mamm only IMPRESSION: No mammographic or sonographic abnormality. ASSESSMENT: BI-RADS BI-RADS 1 - Negative RECOMMENDATION: 1 year F/U Results were provided to the patient at time of visit by the technologist. This patient's information was entered into a reminder system with a target due date for their next mammogram. Electronically signed by: Modesta Dixon DO 10/11/2024 02:32 PM [facility] CHAMPION
== END 2024-10-11 13:50 | disposition home or self-care (01) ==
LOC: HO.MAMMO 13:49
PROVIDERS: PCP Hospitalist; Visit Provider Hospitalist
DX: N64.89 Other specified disorders of breast (principal)
CPT/HCPCS: 76642; 77061; 77065

== ENCOUNTER → 2024-10-11 14:00 | Outpatient (BNV) | payer MEDICARE, MEDICAID, SELFPAY | PROVIDERS: PCP Hospitalist; Visit Provider Internal Medicine | DX: N64.89 Other specified disorders of breast (principal) | CPT/HCPCS: 76642; 77065; G0279 ==

== ENCOUNTER → 2025-08-02 09:15 | Outpatient (BNV) | payer MEDICARE, MEDICAID, SELFPAY | PROVIDERS: Visit Provider Radiology Body Imaging | DX: Z12.31 Encounter for screening mammogram for malignant neoplasm of breast (principal) | CPT/HCPCS: 77063; 77067 ==

== ENCOUNTER 2025-08-02 09:20 | Outpatient (REF) | payer MEDICARE, MEDICAID, SELFPAY ==
--- NOTE | ~2025-08-02 | MM_ITS ---
EXAMINATION: MM SCREENING DIGITAL BREAST TOMOSYNTHESIS, BILATERAL CLINICAL INFORMATION: Screening. Asymptomatic. COMPARISON: Comparison made to multiple prior, most recent [diagnostic mammogram on October 11, 2024, and most remote March 25, 2021. TECHNIQUE: Digital breast tomosynthesis is performed in mediolateral oblique and craniocaudal views along with computer-aided detection (CAD). Synthesized 2D images are generated from the tomosynthesis. FINDINGS: BREAST COMPOSITION: The breasts are heterogeneously dense, which may obscure small masses. BILATERAL BREASTS: No significant masses, suspicious calcifications or other abnormalities are seen in either breast. MM/MM tomosynthesis screening BI IMPRESSION: BILATERAL BREASTS: Negative, no mammographic evidence of malignancy. Normal interval follow-up is recommended in 12 months. ASSESSMENT: BI-RADS: Category 1: Negative RECOMMENDATION: Routine annual mammography screening. FOLLOW-UP: 1 year F/U This examination should not preclude the clinical evaluation of a suspicious palpable abnormality. This patient's information was entered into a reminder system with a target due date for their next mammogram. Electronically signed by: Silvio Morales MD 08/04/2025 12:56 PM [facility]
--- OUTSIDE RECORDS SUMMARY | 2025-08-02 10:23 | XMS_ITS | Encounter Summary ---
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, sequela (CMS/HCC V24) Social History Tobacco Use Types Packs/Day Years Used Date Smoking Tobacco: Never Assessed Comments Unknown Sex and Gender Information Value Date Recorded Sex Assigned at Not on file Legal Sex Female 10:18 AM EST Gender Identity Not on file Sexual Orientation Not on file documented as of this encounter Plan of Treatment Not on file documented as of this encounter Procedures Procedure Name Priority Date/Time Associated Diagnosis Comments CBC WITH AUTO DIFFERENTIAL Routine 10/11/2024 6:44 AM EST 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, sequela (CMS/HCC) CBC AND DIFFERENTIAL Routine 10/11/2024 6:44 AM EST 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, sequela (CMS/HCC) documented in this encounter Results * (ABNORMAL) CBC auto differential (10/11/2024 6:44 AM EST) WBC 5.5 4.8 - 10.8 K/mcL LAB HEMETOLOGY METHOD 10/11/2024 9:[address] [facility] RBC 4.60 3.80 - 4.80 M/mcL LAB HEMETOLOGY METHOD 10/11/2024 9:[address] [facility] Hemoglobin 13.4 11.5 - 16.0 g/dL LAB HEMETOLOGY METHOD 10/11/2024 9:[address] [facility] Hematocrit 40.2 35.0 - 47.0 % LAB HEMETOLOGY METHOD 10/11/2024 9:[address] [facility] MCV 87.2 79.0 - 98.0 FL LAB HEMETOLOGY METHOD 10/11/2024 9:[address] [facility] MCH 29.1 27.0 - 32.0 pcg LAB HEMETOLOGY METHOD 10/11/2024 9:[address] [facility] MCHC 33.3 32.0 - 37.0 g/dL LAB HEMETOLOGY METHOD 10/11/2024 9:[address] [facility] RDW 12.4 11.0 - 15.0 % LAB HEMETOLOGY METHOD 10/11/2024 9:[address] [facility] Platelets 330 130 - 400 K/mcL LAB HEMETOLOGY METHOD 10/11/2024 9:[address] [facility] MPV 11.1(H) 7.0 - 11.0 FL LAB HEMETOLOGY METHOD 10/11/2024 9:[address] [facility] NRBC 0.0 <1.0 % LAB HEMETOLOGY METHOD 10/11/2024 9:[address] [facility] NRBC Absolute 0.00 <0.10 K/mcL LAB HEMETOLOGY METHOD 10/11/2024 9:[address] [facility] Neutrophils Relative 46.2 % LAB HEMETOLOGY METHOD 10/11/2024 9:[address] [facility] Lymphocytes Relative 40.1 % LAB HEMETOLOGY METHOD 10/11/2024 9:[address] [facility] Monocytes Relative 8.4 % LAB HEMETOLOGY METHOD 10/11/2024 9:[address] [facility] Eosinophils Relative 4.6 % LAB HEMETOLOGY METHOD 10/11/2024 9:[address] [facility] Basophils Relative 0.5 % LAB HEMETOLOGY METHOD 10/11/2024 9:[address] [facility] Immature Granulocytes Relative 0.2 % LAB HEMETOLOGY METHOD 10/11/2024 9:[address] [facility] Neutrophils Absolute 2.53 1.50 - 7.00 K/mcL LAB HEMETOLOGY METHOD 10/11/2024 9:[address] [facility] Lymphocytes Absolute 2.20 1.00 - 5.00 K/mcL LAB HEMETOLOGY METHOD 10/11/2024 9:[address] [facility] Monocytes Absolute 0.46 0.20 - 1.00 K/mcL LAB HEMETOLOGY METHOD 10/11/2024 9:[address] [facility] Eosinophils Absolute 0.25 0.00 - 0.50 K/mcL LAB HEMETOLOGY METHOD 10/11/2024 9:[address] [facility] Basophils Absolute 0.03 0.00 - 0.20 K/mcL LAB HEMETOLOGY METHOD 10/11/2024 9:[address] [facility] Immature Granulocytes Absolute 0.01 0.00 - 0.03 K/mcL LAB HEMETOLOGY METHOD 10/11/2024 9:[address] [facility] Blood Venous blood specimen / Unknown 10/11/2024 6:44 AM EST 10/11/2024 9:16 AM EST us Christian Hicks MD LAB BLOOD ORDERABLES Final Resul t [facility] [address] [place] [address], documented in this encounter Visit Diagnoses Diagnosis 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
--- OUTSIDE RECORDS SUMMARY | 2025-08-02 10:23 | XMS_ITS | Encounter Summary ---
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, sequela ([facility] V24) Social History Tobacco Use Types Packs/Day [...] Diagnosis Comments CBC WITH AUTO DIFFERENTIAL Routine 02/18/2025 6:25 AM EDT 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, sequela ([facility] V24) CBC AND DIFFERENTIAL Routine 02/18/2025 6:25 AM EDT 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, sequela ([facility]/HCC V24) documented in this encounter Results * CBC auto differential (02/18/2025 6:25 AM EDT) WBC 6.7 4.8 - 10.8 K/mcL LAB HEMETOLOGY METHOD 02/18/2025 7:26 AM [facility] LAB RBC 4.80 3.80 - 4.80 M/mcL LAB HEMETOLOGY METHOD 02/18/2025 7:26 AM [facility] LAB Hemoglobin 14.2 11.5 - 16.0 g/dL LAB HEMETOLOGY METHOD 02/18/2025 7:26 AM [facility] LAB Hematocrit 42.3 35.0 - 47.0 % LAB HEMETOLOGY METHOD 02/18/2025 7:26 AM [facility] LAB MCV 87.4 79.0 - 98.0 FL LAB HEMETOLOGY METHOD 02/18/2025 7:26 AM [facility] LAB MCH 29.3 27.0 - 32.0 pcg LAB HEMETOLOGY METHOD 02/18/2025 7:26 AM [facility] LAB MCHC 33.6 32.0 - 37.0 g/dL LAB HEMETOLOGY METHOD 02/18/2025 7:26 AM [facility] LAB RDW 12.1 11.0 - 15.0 % LAB HEMETOLOGY METHOD 02/18/2025 7:26 AM [facility] LAB Platelets 303 130 - 400 K/mcL LAB HEMETOLOGY METHOD 02/18/2025 7:26 AM [facility] LAB MPV 10.6 7.0 - 11.0 FL LAB HEMETOLOGY METHOD 02/18/2025 7:26 AM [facility] LAB NRBC 0.0 <1.0 % LAB HEMETOLOGY METHOD 02/18/2025 7:26 AM [facility] LAB NRBC Absolute 0.00 <0.10 K/mcL LAB HEMETOLOGY METHOD 02/18/2025 7:26 AM [facility] LAB Neutrophils Relative 44.7 % LAB HEMETOLOGY METHOD 02/18/2025 7:26 AM [facility] LAB Lymphocytes Relative 43.2 % LAB HEMETOLOGY METHOD 02/18/2025 7:26 AM [facility] LAB Monocytes Relative 7.4 % LAB HEMETOLOGY METHOD 02/18/2025 7:26 AM [facility] LAB Eosinophils Relative 3.7 % LAB HEMETOLOGY METHOD 02/18/2025 7:26 AM [facility] LAB Basophils Relative 0.7 % LAB HEMETOLOGY METHOD 02/18/2025 7:26 AM [facility] LAB Immature Granulocytes Relative 0.3 % LAB HEMETOLOGY METHOD 02/18/2025 7:26 AM [facility] LAB Neutrophils Absolute 3.01 1.50 - 7.00 K/mcL LAB HEMETOLOGY METHOD 02/18/2025 7:26 AM [facility] LAB Lymphocytes Absolute 2.91 1.00 - 5.00 K/mcL LAB HEMETOLOGY METHOD 02/18/2025 7:26 AM [facility] LAB Monocytes Absolute 0.50 0.20 - 1.00 K/mcL LAB HEMETOLOGY METHOD 02/18/2025 7:26 AM [facility] LAB Eosinophils Absolute 0.25 0.00 - 0.50 K/mcL LAB HEMETOLOGY METHOD 02/18/2025 7:26 AM [facility] LAB Basophils Absolute 0.05 0.00 - 0.20 K/mcL LAB HEMETOLOGY METHOD 02/18/2025 7:26 AM [facility] LAB Immature Granulocytes Absolute 0.02 0.00 - 0.03 K/mcL LAB HEMETOLOGY METHOD 02/18/2025 7:26 AM [facility] LAB Blood Venous blood specimen / Unknown 02/18/2025 6:25 AM EDT 02/18/2025 7:13 AM EDT us Christian Hicks MD LAB BLOOD ORDERABLES Final Resul t [facility] ([facility] LAB [address] [place] [address], documented in this encounter Visit Diagnoses Diagnosis 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
--- OUTSIDE RECORDS SUMMARY | 2025-08-02 10:23 | XMS_ITS | Encounter Summary ---
Author Organization [employer] Address [address] [place] [address] Care Team Providers Care Computer Lab Para Professional Name Role Phone Christian Hicks MD Primary Care Provider [phone] Encounter Details Date Type Department Care Team (Late st Contact Info) Description 08/08/2024 Lab Requisition [facility] - Main Lab [address] [facility] [place] [address] Christian Hicks MD [address] [place] [address] [address] [place] Diffuse traumatic brain injury with loss of [...] Procedure Name Priority Date/Time Associated Diagnosis Comments LIPID PANEL WITH REFLEX TO DIRECT LDL Routine 08/08/2024 5:00 AM EST 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, sequela (CMS/HCC) CBC WITH AUTO DIFFERENTIAL Routine 08/08/2024 5:00 AM EST 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, sequela (CMS/HCC) CBC AND DIFFERENTIAL Routine 08/08/2024 5:00 AM EST 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, sequela (CMS/HCC) THYROID STIMULATING HORMONE Routine 08/08/2024 5:00 AM EST 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, sequela (CMS/HCC) COMPREHENSIVE METABOLIC PANEL Routine 08/08/2024 5:00 AM EST 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, sequela (CMS/HCC) documented in this encounter Results * CBC auto differential (08/08/2024 5:00 AM EST) Pathologist [facility] WBC 5.9 4.8 - 10.8 K/mcL LAB HEMETOLOGY METHOD 08/08/2024 6:58 AM [facility] LAB RBC 4.30 3.80 - 4.80 M/mcL LAB HEMETOLOGY METHOD 08/08/2024 6:58 AM [facility] LAB Hemoglobin 12.3 11.5 - 16.0 g/dL LAB HEMETOLOGY METHOD 08/08/2024 6:58 AM [facility] LAB Hematocrit 38.1 35.0 - 47.0 % LAB HEMETOLOGY METHOD 08/08/2024 6:58 AM [facility] LAB MCV 89.0 79.0 - 98.0 FL LAB HEMETOLOGY METHOD 08/08/2024 6:58 AM [facility] LAB MCH 28.7 27.0 - 32.0 pcg LAB HEMETOLOGY METHOD 08/08/2024 6:58 AM [facility] LAB MCHC 32.3 32.0 - 37.0 g/dL LAB HEMETOLOGY METHOD 08/08/2024 6:58 AM [facility] LAB RDW 12.8 11.0 - 15.0 % LAB HEMETOLOGY METHOD 08/08/2024 6:58 AM [facility] LAB Platelets 293 130 - 400 K/mcL LAB HEMETOLOGY METHOD 08/08/2024 6:58 AM [facility] LAB MPV 10.5 7.0 - 11.0 FL LAB HEMETOLOGY METHOD 08/08/2024 6:58 AM [facility] LAB NRBC 0.0 <1.0 % LAB HEMETOLOGY METHOD 08/08/2024 6:58 AM [facility] LAB NRBC Absolute 0.00 <0.10 K/mcL LAB HEMETOLOGY METHOD 08/08/2024 6:58 AM [facility] LAB Neutrophils Relative 50.1 % LAB HEMETOLOGY METHOD 08/08/2024 6:58 AM [facility] LAB Lymphocytes Relative 37.4 % LAB HEMETOLOGY METHOD 08/08/2024 6:58 AM [facility] LAB Monocytes Relative 6.9 % LAB HEMETOLOGY METHOD 08/08/2024 6:58 AM [facility] LAB Eosinophils Relative 4.9 % LAB HEMETOLOGY METHOD 08/08/2024 6:58 AM [facility] LAB Basophils Relative 0.5 % LAB HEMETOLOGY METHOD 08/08/2024 6:58 AM [facility] LAB Immature Granulocytes Relative 0.2 % LAB HEMETOLOGY METHOD 08/08/2024 6:58 AM [facility] LAB Neutrophils Absolute 2.98 1.50 - 7.00 K/mcL LAB HEMETOLOGY METHOD 08/08/2024 6:58 AM [facility] LAB Lymphocytes Absolute 2.22 1.00 - 5.00 K/mcL LAB HEMETOLOGY METHOD 08/08/2024 6:58 AM [facility] LAB Monocytes Absolute 0.41 0.20 - 1.00 K/mcL LAB HEMETOLOGY METHOD 08/08/2024 6:58 AM [facility] LAB Eosinophils Absolute 0.29 0.00 - 0.50 K/mcL LAB HEMETOLOGY METHOD 08/08/2024 6:58 AM [facility] LAB Basophils Absolute 0.03 0.00 - 0.20 K/[facility] LAB HEMETOLOGY METHOD 08/08/2024 6:58 AM EST [facility] LAB Immature Granulocytes Absolute 0.01 0.00 - 0.03 K/[facility] LAB HEMETOLOGY METHOD 08/08/2024 6:58 AM EST [facility] LAB Blood Venous blood specimen / Unknown 08/08/2024 5:00 AM EST 08/08/2024 6:20 AM EST us Christian Hicks MD LAB BLOOD ORDERABLES Final Resul t Performing Organization Address City/[facility]/ZIP Co de Phone Number [facility] LAB [address] [place] [address], [place] [phone] * Thyroid stimulating hormone (08/08/2024 5:00 AM EST) TSH 0.95 0.40 - 4.00 mcIU/mL LAB CHEMISTRY METHOD 08/08/2024 7:12 AM [facility] LAB Blood Venous blood specimen / Unknown 08/08/2024 5:00 AM EST 08/08/2024 6:20 AM EST us Christian Hicks MD LAB BLOOD ORDERABLES Final Resul t Performing Organization Address City/[facility]/ZIP Co de Phone Number [facility] [address] [place] [address], [place] [phone] * (ABNORMAL) Lipid panel with reflex to direct LDL (08/08/2024 5:00 AM EST) Cholesterol 175 0 - 200 mg/dL LAB CHEMISTRY METHOD 08/08/2024 7:03 AM [facility] LAB Triglycerides 152(H) 0 - 150 mg/dL LAB CHEMISTRY METHOD 08/08/2024 7:03 AM [facility] LAB HDL 46 >=40 mg/dL LAB CHEMISTRY METHOD 08/08/2024 7:03 AM [facility] LAB LDL Calculated 99 0 - 100 mg/dL LAB CHEMISTRY METHOD 08/08/2024 7:03 AM [facility] LAB VLDL Cholesterol Boogie 30.4 mg/dL LAB CHEMISTRY METHOD 08/08/2024 7:03 AM [facility] LAB Non HDL Chol. (LDL+VLDL) 129 <145 mg/dL LAB CHEMISTRY METHOD 08/08/2024 7:03 AM [facility] LAB Chol/HDL Ratio 3.8 0.0 - 4.4 LAB CHEMISTRY METHOD 08/08/2024 7:03 AM [facility] LAB Blood Venous blood specimen / Unknown 08/08/2024 5:00 AM EST 08/08/2024 6:20 AM EST us Christian Hicks MD LAB BLOOD ORDERABLES Final Resul t [facility] LAB [address] [place] [address], [place] [phone] * (ABNORMAL) Comprehensive metabolic panel (08/08/2024 5:00 AM EST) Sodium 145 133 - 145 mmol/L LAB CHEMISTRY METHOD 08/08/2024 7:03 AM [facility] LAB Potassium 3.5 3.5 - 5.5 mmol/L LAB CHEMISTRY METHOD 08/08/2024 7:03 AM [facility] LAB Chloride 113(H) 96 - 110 mmol/L LAB CHEMISTRY METHOD 08/08/2024 7:03 AM [facility] LAB CO2 25 21 - 32 mmol/L LAB CHEMISTRY METHOD 08/08/2024 7:03 AM [facility] LAB Anion Gap 7 3 - 11 LAB CHEMISTRY METHOD 08/08/2024 7:03 AM [facility] LAB Glucose 172(H) 70 - 100 mg/dL LAB CHEMISTRY METHOD 08/08/2024 7:03 AM [facility] LAB BUN 16 5 - 25 mg/dL LAB CHEMISTRY METHOD 08/08/2024 7:03 AM [facility] LAB Creatinine 0.94 0.50 - 1.10 mg/dL LAB CHEMISTRY METHOD 08/08/2024 7:03 AM [facility] LAB eGFR 68 >=60 mL/min/1. 73m2 LAB CHEMISTRY METHOD 08/08/2024 7:03 AM [facility] LAB Comment:Calculation based on the Chronic Kidney Disease Epidemiology Collaboration (CKD-EPI) equation refit without adjustment for race. BUN/Creatinine Ratio 17.0 LAB CHEMISTRY METHOD 08/08/2024 7:03 AM [facility] LAB Calcium 9.5 8.5 - 10.5 mg/dL LAB CHEMISTRY METHOD 08/08/2024 7:03 AM [facility] LAB AST (SGOT) 24 10 - 42 unit/L LAB CHEMISTRY METHOD 08/08/2024 7:03 AM [facility] LAB ALT (SGPT) 32 10 - 60 unit/L LAB CHEMISTRY METHOD 08/08/2024 7:03 AM [facility] LAB Alkaline Phosphatase 121 42 - 121 unit/L LAB CHEMISTRY METHOD 08/08/2024 7:03 AM [facility] LAB Total Protein 6.1 6.0 - 8.0 g/dL LAB CHEMISTRY METHOD 08/08/2024 7:03 AM [facility] LAB Albumin 3.3 3.2 - 5.0 g/dL LAB CHEMISTRY METHOD 08/08/2024 7:03 AM [facility] LAB Total Bilirubin 0.4 0.0 - 1.4 mg/dL LAB CHEMISTRY METHOD 08/08/2024 7:03 AM [facility] LAB Blood Venous blood specimen / Unknown 08/08/2024 5:00 AM EST 08/08/2024 6:20 AM EST us Christian Hicks MD LAB BLOOD ORDERABLES Final Resul t [facility] [place] ([facility] LAB [address] [place] [address], documented in this encounter Visit Diagnoses Diagnosis 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
--- OUTSIDE RECORDS SUMMARY | 2025-08-02 10:23 | XMS_ITS | Encounter Summary ---
Author Organization [employer] Address [address] [place] [address] Care Team Providers Care Craft Artist Name Role Phone Christian Hicks MD Primary Care Provider Encounter Details Date Type Department Care Team (Late st Contact Info) Description 01/08/2025 Lab Requisition [facility] Lab [address] [place] [address] Christian Hicks MD [address] [place] [address] Dr [address] [place] Other care home (current) drug therapy Social History Tobacco Use Types Packs/Day Years [...] Procedure Name Priority Date/Time Associated Diagnosis Comments SST - GOLD Routine 01/08/2025 6:45 AM EDT Other continuous churn buttermaker (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) drug therapy CBC WITH AUTO DIFFERENTIAL Routine 01/08/2025 6:45 AM EDT Other care home (current) drug therapy CBC AND DIFFERENTIAL Routine 01/08/2025 6:45 AM EDT Other care home (current) drug therapy documented in this encounter Results * CBC auto differential (01/08/2025 6:45 AM EDT) [facility] Signature WBC 6.9 4.8 - 10.8 K/[facility] LAB HEMETOLOGY METHOD 01/08/2025 7:56 AM EDT [facility] LAB RBC 4.50 3.80 - 4.80 M/[facility] LAB HEMETOLOGY METHOD 01/08/2025 7:56 AM [facility] LAB Hemoglobin 13.4 11.5 - 16.0 g/dL LAB HEMETOLOGY METHOD 01/08/2025 7:56 AM [facility] LAB Hematocrit 40.0 35.0 - 47.0 % LAB HEMETOLOGY METHOD 01/08/2025 7:56 AM [facility] LAB MCV 88.1 79.0 - 98.0 FL LAB HEMETOLOGY METHOD 01/08/2025 7:56 AM [facility] LAB MCH 29.5 27.0 - 32.0 pcg LAB HEMETOLOGY METHOD 01/08/2025 7:56 AM [facility] LAB MCHC 33.5 32.0 - 37.0 g/dL LAB HEMETOLOGY METHOD 01/08/2025 7:56 AM [facility] LAB RDW 12.5 11.0 - 15.0 % LAB HEMETOLOGY METHOD 01/08/2025 7:56 AM [facility] LAB Platelets 341 130 - 400 K/mcL LAB HEMETOLOGY METHOD 01/08/2025 7:56 AM [facility] LAB MPV 10.0 7.0 - 11.0 FL LAB HEMETOLOGY METHOD 01/08/2025 7:56 AM [facility] LAB NRBC 0.0 <1.0 % LAB HEMETOLOGY METHOD 01/08/2025 7:56 AM [facility] LAB NRBC Absolute 0.00 <0.10 K/mcL LAB HEMETOLOGY METHOD 01/08/2025 7:56 AM [facility] LAB Neutrophils Relative 47.2 % LAB HEMETOLOGY METHOD 01/08/2025 7:56 AM [facility] LAB Lymphocytes Relative 41.8 % LAB HEMETOLOGY METHOD 01/08/2025 7:56 AM [facility] LAB Monocytes Relative 6.1 % LAB HEMETOLOGY METHOD 01/08/2025 7:56 AM EDT [facility] LAB Eosinophils Relative 4.1 % LAB HEMETOLOGY METHOD 01/08/2025 7:56 AM T [facility] LAB Basophils Relative 0.7 % LAB HEMETOLOGY METHOD 01/08/2025 7:56 AM EDT [facility] LAB Immature Granulocytes Relative 0.1 % LAB HEMETOLOGY METHOD 01/08/2025 7:56 AM EDT [facility] LAB Neutrophils Absolute 3.25 1.50 - 7.00 K/mcL LAB HEMETOLOGY METHOD 01/08/2025 7:56 AM EDT [facility] LAB Lymphocytes Absolute 2.88 1.00 - 5.00 K/mcL LAB HEMETOLOGY METHOD 01/08[facility]2025 7[facility] Monocytes Absolute 0.42 0.20 - 1.00 K/mcL LAB HEMETOLOGY METHOD 01/08/2025 7:56 AM EDT [facility] LAB Eosinophils Absolute 0.28 0.00 - 0.50 K/mcL LAB HEMETOLOGY METHOD 01/08/2025 7:56 AM [facility] LAB Basophils Absolute 0.05 0.00 - 0.20 K/mcL LAB HEMETOLOGY METHOD 01/08/2025 7:56 AM EDT [facility] LAB Immature Granulocytes Absolute 0.01 0.00 - 0.03 K/mcL LAB HEMETOLOGY METHOD 01/08/2025 7:56 AM T [facility] LAB Blood Venous blood specimen / Unknown 01/08/2025 6:45 AM EDT 01/08/2025 7:43 AM EDT us Christian Hicks MD LAB BLOOD ORDERABLES Final Resul t [facility] LAB [address] [place] [address], [place] [phone] * SST tube (01/08/2025 6:45 AM EDT) Extra Tube Hold for add-ons. 01/08/2025 9:01 AM EDT [facility] LAB Comment:Auto resulted. Blood Venous blood specimen / Unknown 01/08/2025 6:45 AM EDT 01/08/2025 7:43 AM EDT us Christian Hicks MD LAB BLOOD ORDERABLES Final Resul t [facility] [address] [place] [address], [place] [phone] documented in this encounter Visit Diagnoses Diagnosis Other care home (current) drug therapy documented in this encounter Additional Health Concerns Infection Onset Date Last Indicated Resolved Time Respiratory Rule-Out 07/01/2025 07/01/2025 025 4:13 PM EDT documented as of this encounter Care Teams Craft Artist Relationship Specialty Start Date End Date Christian Hicks MD [address] [facility] [address] [place], [place] PCP - General Internal Medicine 11/08/24 documented as of this encounter
--- OUTSIDE RECORDS SUMMARY | 2025-08-02 10:23 | XMS_ITS | Encounter Summary ---
Author Organization [employer] Address [address] [place] [address] Care Team Providers Care Airplane Captain Name Role Phone Christian Hicks MD Primary Care Provider [phone] Encounter Details Date Type Department Care Team (Late st Contact Info) Description 07/01/2025 Lab Requisition [facility] Lab [address] [place] [address] Christian Hicks MD [address] [place] [address] [address] [place] Cough, unspecified; Acute pharyngitis, unspecified Social History Tobacco Use Types Packs/Day Years [...] Procedure Name Priority Date/Time Associated Diagnosis Comments [id number], RSV, FLU A AND B QUALITATIVE RT-PCR, LOCAL REFERENCE LAB Routine 07/01/2025 1:10 AM EDT Cough, unspecified Acute pharyngitis, unspecified documented in this encounter Results * [id number], RSV, Influenza A and B qualitative RT-PCR (07/01/2025 1:10 AM EDT) SARS COV-2 Not Detected Not Detected LAB MOLECULAR DIAGNOSTICS METHOD 07/01/2025 4:13 PM EDT [facility] ([facility]) [facility] LAB Comment: Disclaimer: The manner in which this information is used to guide patient care is the responsibility of the healthcare provider. Testing was performed using the [employer] m SARS-CoV-2 test. This test has been authorized by FDA under an Emergency Use Authorization (EUA). This test is only authorized for the duration of time the declaration that circumstances exist justifying the authorization of the emergency use of in vitro diagnostic tests for detection of SARS-CoV-2 virus and/or diagnosis of COVID-19 infection under section 564(b)(1) of the Act, 21 U.S.C. 360bbb- 3(b)(1), unless the authorization is terminated or revoked sooner. Fact sheet for Healthcare Providers can be found at: https://www.fda.gov/media/292991/download Fact sheet for Patients can be found at: https://www.fda.gov/media/784129/download Influenza A PCR Not Detected Not Detected LAB MOLECULAR DIAGNOSTICS METHOD 07/01/2025 4:13 PM EDT [facility] LAB Influenza B PCR Not Detected Not Detected LAB MOLECULAR DIAGNOSTICS METHOD 07/01/2025 4:13 PM EDT [facility] RSV PCR Not Detected Not Detected LAB MOLECULAR DIAGNOSTICS METHOD 07/01/2025 4:13 PM EDT [facility] LAB Swab Nasopharyngeal structure / Unknown Non-blood Collection / Unknown 07/01/2025 1:10 AM EDT 07/01/2025 1:11 PM EDT Christian Hicks MD LAB MICROBIOLOGY - GENERAL ORDER DELBERT Final Result [facility] [address] [place] [address], documented in this encounter Visit Diagnoses Diagnosis Cough, unspecified Acute pharyngitis, unspecified documented in this encounter Additional Health Concerns Infection Onset Date Last Indicated Resolved Time Respiratory Rule-Out 07/01/2025 07/01/2025 025 4:13 PM EDT documented as of this encounter Care Teams Airplane Captain Relationship Specialty Start Date End Date Christian Hicks MD [address] [place] [address] [place] [address] [place] PCP - General Internal Medicine 11/08/24 documented as of this encounter
--- OUTSIDE RECORDS SUMMARY | 2025-08-02 10:23 | XMS_ITS | Encounter Summary ---
Author Organization [employer] Address [address] [place] [address] Care Team Providers Care Spanish Moss Picker Name Role Phone Christian Hicks MD Primary Care Provider [phone] Encounter Details Date Type Department Care Team (Late st Contact Info) Description 02/07/[address] 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, sequela ([facility] V24) CBC AND DIFFERENTIAL Routine 02/07/2025 6:15 AM EDT 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, sequela ([facility] V24) documented in this encounter Results * CBC auto differential (02/07/2025 6:15 AM EDT) WBC 6.0 4.8 - 10.8 K/[facility] LAB HEMETOLOGY METHOD 02/07/2025 7:51 AM [facility] LAB RBC 4.50 3.80 - 4.80 M/mcL LAB HEMETOLOGY METHOD 02/07/2025 7:51 AM [facility] LAB Hemoglobin 13.2 11.5 - 16.0 g/dL LAB HEMETOLOGY METHOD 02/07/2025 7:51 AM [facility] LAB Hematocrit 39.2 35.0 - 47.0 % LAB HEMETOLOGY METHOD 02/07/2025 7:51 AM [facility] LAB MCV 86.5 79.0 - 98.0 FL LAB HEMETOLOGY METHOD 02/07/2025 7:51 AM [facility] LAB MCH 29.1 27.0 - 32.0 pcg LAB HEMETOLOGY METHOD 02/07/2025 7:51 AM [facility] LAB MCHC 33.7 32.0 - 37.0 g/dL LAB HEMETOLOGY METHOD 02/07/2025 7:51 AM [facility] LAB RDW 12.2 11.0 - 15.0 % LAB HEMETOLOGY METHOD 02/07/2025 7:51 AM [facility] LAB Platelets 296 130 - 400 K/mcL LAB HEMETOLOGY METHOD 02/07/2025 7:51 AM [facility] LAB MPV 10.6 7.0 - 11.0 FL LAB HEMETOLOGY METHOD 02/07/2025 7:51 AM [facility] LAB NRBC 0.0 <1.0 % LAB HEMETOLOGY METHOD 02/07/2025 7:51 AM [facility] LAB NRBC Absolute 0.00 <0.10 K/mcL LAB HEMETOLOGY METHOD 02/07/2025 7:51 AM [facility] LAB Neutrophils Relative 41.1 % LAB HEMETOLOGY METHOD 02/07/2025 7:51 AM [facility] LAB Lymphocytes Relative 44.5 % LAB HEMETOLOGY METHOD 02/07/2025 7:51 AM [facility] LAB Monocytes Relative 8.8 % LAB HEMETOLOGY METHOD 02/07/2025 7:51 AM [facility] LAB Eosinophils Relative 4.7 % LAB HEMETOLOGY METHOD 02/07/2025 7:51 AM [facility] LAB Basophils Relative 0.7 % LAB HEMETOLOGY METHOD 02/07/2025 7:51 AM [facility] LAB Immature Granulocytes Relative 0.2 % LAB HEMETOLOGY METHOD 02/07/2025 7:51 AM [facility] LAB Neutrophils Absolute 2.47 1.50 - 7.00 K/mcL LAB HEMETOLOGY METHOD 02/07/2025 7:51 AM [facility] LAB Lymphocytes Absolute 2.67 1.00 - 5.00 K/mcL LAB HEMETOLOGY METHOD 02/07/2025 7:51 AM [facility] LAB Monocytes Absolute 0.53 0.20 - 1.00 K/mcL LAB HEMETOLOGY METHOD 02/07/2025 7:51 AM [facility] LAB Eosinophils Absolute 0.28 0.00 - 0.50 K/mcL LAB HEMETOLOGY METHOD 02/07/2025 7:51 AM [facility] LAB Basophils Absolute 0.04 0.00 - 0.20 K/mcL LAB HEMETOLOGY METHOD 02/07/2025 7:51 AM [facility] LAB Immature Granulocytes Absolute 0.01 0.00 - 0.03 K/mcL LAB HEMETOLOGY METHOD 02/07/2025 7:51 AM [facility] LAB Blood Venous blood specimen / Unknown 02/07/2025 6:15 AM EDT 02/07/2025 7:20 AM EDT us Christian Hicks MD LAB BLOOD ORDERABLES Final Resul t [facility] LAB [address] [place] [address], documented in this encounter Visit Diagnoses Diagnosis 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
--- OUTSIDE RECORDS SUMMARY | 2025-08-02 10:23 | XMS_ITS | Encounter Summary ---
Author Organization [employer] Address [address] [place] [address] Care Team Providers Care Rn Bsn Name Role Phone Christian Hicks MD Primary Care Provider [phone] Encounter Details Date Type Department Care Team (Late st Contact Info) Description 08/27/2024 Lab Requisition [facility] - Main Lab [address] [place] [address] Christian Hicks MD [address] [place] [address] Dr [address] [place] Urinary tract infection, site not specified Social History Tobacco Use Types Packs/Day Years [...] Procedure Name Priority Date/Time Associated Diagnosis Comments URINALYSIS WITH REFLEX MICROSCOPIC AND CULTURE Routine 08/27/2024 11:40 AM EST Urinary tract infection, site not specified BAE - NA FLOURIDE Routine 08/27/2024 11 :40 AM EST Urinary tract infection, site not specified URINALYSIS WITH REFLEX MICROSCOPIC AND CULTURE Routine 08/27/2024 11:40 AM EST Urinary tract infection, site not specified documented in this encounter Results * Bae tube (08/27/2024 11:40 AM EST) Extra Tube Hold for add-ons. 08/27/2024 5:01 PM EST [facility] Comment:Auto resulted. Blood Venous blood specimen / Unknown 08/27/2024 11:40 AM EST 08/27/2024 3:11 PM EST us Christian Hicks MD LAB BLOOD ORDERABLES Final Resul t [facility] LAB [address] [place] [address], [place] [phone] * Urinalysis with reflex microscopic and culture (08/27/2024 11:40 AM EST) Specific [place] Urine 1.016 1.003 - 1.030 LAB URINALYSIS - AUTOMATED METHOD 08/27/2024 3:41 PM [facility] LAB pH, Urine 6.0 5.0 - 8.0 pH LAB URINALYSIS - AUTOMATED METHOD 08/27/2024 3:41 PM [facility] LAB Leukocytes, Urine Negative Negative LAB URINALYSIS - AUTOMATED METHOD 08/27/2024 3:41 PM [facility] LAB Nitrite, Urine Negative Negative LAB URINALYSIS - AUTOMATED METHOD 08/27/2024 3:41 PM [facility] LAB Protein, Urine Negative <=Trace mg/dL LAB URINALYSIS - AUTOMATED METHOD 08/27/2024 3:41 PM [facility] LAB Glucose, Urine Negative Negative mg/dL LAB URINALYSIS - AUTOMATED METHOD 08/27/2024 3:41 PM [facility] LAB Ketones, Urine Negative Negative mg/dL LAB URINALYSIS - AUTOMATED METHOD 08/27/2024 3:41 PM [facility] LAB Urobilinogen, Urine 0.2 0.2 - 1.0 mg/dL LAB URINALYSIS - AUTOMATED METHOD 08/27/2024 3:41 PM [facility] LAB Bilirubin, Urine Negative Negative LAB URINALYSIS - AUTOMATED METHOD 08/27/2024 3:41 PM [facility] LAB Blood, Urine Negative Negative LAB URINALYSIS - AUTOMATED METHOD 08/27/2024 3:41 PM [facility] LAB Urine Urine specimen obtained by clean catch procedure / Unknown 08/27/2024 11:40 AM EST 08/27/2024 2:43 PM EST us Christian Hicks MD LAB URINE ORDERABLES Final Resul t [facility] LAB [address] [place] [address], documented in this encounter Visit Diagnoses Diagnosis Urinary tract infection, site not specified documented in this encounter Additional Health Concerns Infection Onset Date Last Indicated Resolved Time Respiratory Rule-Out 07/01/2025 07/01/2025 025 4:13 PM EDT documented as of this encounter Care Teams Rn Bsn Relationship Specialty Start Date End Date Christian Hicks MD [address] [place] [address] Dr [address] [place] PCP - General Internal Medicine 11/08/24 documented as of this encounter
--- OUTSIDE RECORDS SUMMARY | 2025-08-02 10:23 | XMS_ITS | Encounter Summary ---
Author Organization [employer] Address [address] [place] [address] Care Team Providers Care Excavating Contractor Name Role Phone Christian Hicks MD Primary Care Provider [phone] Encounter Details Date Type Department Care Team (Late st Contact Info) Description 03/14/2025 Lab Requisition [facility] - Main Lab [address] [facility] [place] [address] Christian Hicks MD [address] [place] [address] [address] [place] Other prison (current) drug therapy Social History Tobacco Use [...] PANEL WITH REFLEX TO DIRECT LDL Routine 03/14/2025 6:30 AM EDT Other digital forensics examiner (current) drug therapy CBC WITH AUTO DIFFERENTIAL Routine 03/14/2025 6:30 AM EDT Other prison (current) drug therapy CBC AND DIFFERENTIAL Routine 03/14/2025 6:30 AM EDT Other digital forensics examiner (current) drug therapy THYROID STIMULATING HORMONE Routine 03/14/2025 6:30 AM EDT Other digital forensics examiner (current) drug therapy HEMOGLOBIN A1C Routine 03/14/2025 6:30 AM EDT Other digital forensics examiner (current) drug therapy COMPREHENSIVE METABOLIC PANEL Routine 03/14/2025 6:30 AM EDT Other digital forensics examiner (current) drug therapy documented in this encounter Results * CBC auto differential (03/14/2025 6:30 AM EDT) WBC 7.4 4.8 - 10.8 K/mcL LAB HEMETOLOGY METHOD 03/14/2025 7:39 AM [facility] LAB RBC 4.80 3.80 - 4.80 M/mcL LAB HEMETOLOGY METHOD 03/14/2025 7:39 AM [facility] LAB Hemoglobin 14.0 11.5 - 16.0 g/dL LAB HEMETOLOGY METHOD 03/14/2025 7:39 AM [facility] LAB Hematocrit 42.7 35.0 - 47.0 % LAB HEMETOLOGY METHOD 03/14/2025 7:39 AM [facility] LAB MCV 88.6 79.0 - 98.0 FL LAB HEMETOLOGY METHOD 03/14/2025 7:39 AM [facility] LAB MCH 29.0 27.0 - 32.0 pcg LAB HEMETOLOGY METHOD 03/14/2025 7:39 AM [facility] LAB MCHC 32.8 32.0 - 37.0 g/dL LAB HEMETOLOGY METHOD 03/14/2025 7:39 AM [facility] LAB RDW 12.7 11.0 - 15.0 % LAB HEMETOLOGY METHOD 03/14/2025 7:39 AM [facility] LAB Platelets 297 130 - 400 K/mcL LAB HEMETOLOGY METHOD 03/14/2025 7:39 AM [facility] LAB MPV 10.6 7.0 - 11.0 FL LAB HEMETOLOGY METHOD 03/14/2025 7:39 AM [facility] LAB NRBC 0.0 <1.0 % LAB HEMETOLOGY METHOD 03/14/2025 7:39 AM [facility] LAB NRBC Absolute 0.00 <0.10 K/mcL LAB HEMETOLOGY METHOD 03/14/2025 7:39 AM [facility] LAB Neutrophils Relative 44.1 % LAB HEMETOLOGY METHOD 03/14/2025 7:39 AM [facility] LAB Lymphocytes Relative 43.0 % LAB HEMETOLOGY METHOD 03/14/2025 7:39 AM [facility] LAB Monocytes Relative 8.0 % LAB HEMETOLOGY METHOD 03/14/2025 7:39 AM [facility] LAB Eosinophils Relative 3.8 % LAB HEMETOLOGY METHOD 03/14/2025 7:39 AM [facility] LAB Basophils Relative 0.8 % LAB HEMETOLOGY METHOD 03/14/2025 7:39 AM [facility] LAB Immature Granulocytes Relative 0.3 % LAB HEMETOLOGY METHOD 03/14/2025 7:39 AM [facility] LAB Neutrophils Absolute 3.26 1.50 - 7.00 K/mcL LAB HEMETOLOGY METHOD 03/14/2025 7:39 AM [facility] LAB Lymphocytes Absolute 3.17 1.00 - 5.00 K/mcL LAB HEMETOLOGY METHOD 03/14/2025 7:39 AM [facility] LAB Monocytes Absolute 0.59 0.20 - 1.00 K/mcL LAB HEMETOLOGY METHOD 03/14/2025 7:39 AM [facility] LAB Eosinophils Absolute 0.28 0.00 - 0.50 K/mcL LAB HEMETOLOGY METHOD 03/14/2025 7:39 AM [facility] LAB Basophils Absolute 0.06 0.00 - 0.20 K/mcL LAB HEMETOLOGY METHOD 03/14/2025 7:39 AM [facility] LAB Immature Granulocytes Absolute 0.02 0.00 - 0.03 K/mcL LAB HEMETOLOGY METHOD 03/14/2025 7:39 AM EDT [facility] LAB Blood Venous blood specimen / Unknown 03/14/2025 6:30 AM EDT 03/14/2025 7:19 AM EDT us Christian Hicks MD LAB BLOOD ORDERABLES Final Resul t [facility] LAB [address] [place] [address], [place] [phone] * Thyroid stimulating hormone (03/14/2025 6:30 AM EDT) TSH 2.82 0.40 - 4.00 mcIU/mL LAB CHEMISTRY METHOD 03/14/2025 9:00 AM EDT [facility] Blood Venous blood specimen / Unknown 03/14/2025 6:30 AM EDT 03/14/2025 7:19 AM EDT us Christian Hicks MD LAB BLOOD ORDERABLES Final Resul t Performing Organization Address [facility]/ZIP Co de Phone Number [facility] [address] [place] [address], [place] [phone] * (ABNORMAL) Hemoglobin A1c (03/14/2025 6:30 AM EDT) Hemoglobin A1C 7.7(H) <6.5 % LAB CHEMISTRY METHOD 03/14/2025 12:30 PM EDT [facility] Mean Bld Glu Estim. 174 mg/dL LAB CHEMISTRY METHOD 03/14/2025 12:30 PM EDT [facility] Blood Venous blood specimen / Unknown 03/14/2025 6:30 AM EDT 03/14/2025 7:19 AM EDT us Christian Hicks MD LAB BLOOD ORDERABLES Final Resul t [facility] [address] [place] [address], [place] [phone] * (ABNORMAL) Lipid panel with reflex to direct LDL (03/14/2025 6:30 AM EDT) Cholesterol 255(H) 0 - 200 mg/dL LAB CHEMISTRY METHOD 03/14/2025 8:15 AM EDT [facility] Triglycerides 264(H) 0 - 150 mg/dL LAB CHEMISTRY METHOD 03/14/2025 8:15 AM EDT [facility] HDL 45 >=40 mg/dL LAB CHEMISTRY METHOD 03/14/2025 8:15 AM EDT [facility] LDL Calculated 157(H) 0 - 100 mg/dL LAB CHEMISTRY METHOD 03/14/2025 8:15 AM EDT [facility] VLDL Cholesterol Boogie 52.8 mg/dL LAB CHEMISTRY METHOD 03/14/2025 8:15 AM EDT [facility] Non HDL Chol. (LDL+VLDL) 210(H) <145 mg/dL LAB CHEMISTRY METHOD 03/14/2025 8:15 AM EDT [facility] Chol/HDL Ratio 5.7(H) 0.0 - 4.4 LAB CHEMISTRY METHOD 03/14/2025 8:15 AM T [facility] Blood Venous blood specimen / Unknown 03/14/2025 6:30 AM EDT 03/14/2025 7:19 AM EDT us Christian Hicks MD LAB BLOOD ORDERABLES Final Resul t [facility] [address] [place] [address], [place] [phone] * (ABNORMAL) Comprehensive metabolic panel (03/14/2025 6:30 AM EDT) Pathologist [facility] Sodium 141 133 - 145 mmol/L LAB CHEMISTRY METHOD 03/14/2025 8:15 AM EDT [facility] Potassium 4.1 3.5 - 5.5 mmol/L LAB CHEMISTRY METHOD 03/14/2025 8:15 AM [facility] Chloride 108 96 - 110 mmol/L LAB CHEMISTRY METHOD 03/14/2025 8:15 AM [facility] CO2 27 21 - 32 mmol/L LAB CHEMISTRY METHOD 03/14/2025 8:15 AM [facility] Anion Gap 6 3 - 11 LAB CHEMISTRY METHOD 03/14/2025 8:15 AM [facility] Glucose 193(H) 70 - 100 mg/dL LAB CHEMISTRY METHOD 03/14/2025 8:15 AM [facility] BUN 17 5 - 25 mg/dL LAB CHEMISTRY METHOD 03/14/2025 8:15 AM [facility] Creatinine 0.91 0.50 - 1.10 mg/dL LAB CHEMISTRY METHOD 03/14/2025 8:15 AM [facility] LAB eGFR 71 >=60 mL/min/1. 73m2 LAB CHEMISTRY METHOD 03/14/2025 8:15 AM [facility] LAB Comment:Calculation based on the Chronic Kidney Disease Epidemiology Collaboration (CKD-EPI) equation refit without adjustment for race. BUN/Creatinine Ratio 18.7 LAB CHEMISTRY METHOD 03/14/2025 8:15 AM [facility] Calcium 9.9 8.5 - 10.5 mg/dL LAB CHEMISTRY METHOD 03/14/2025 8:15 AM [facility] AST (SGOT) 28 10 - 42 unit/L LAB CHEMISTRY METHOD 03/14/2025 8:15 AM [facility] ALT (SGPT) 45 10 - 60 unit/L LAB CHEMISTRY METHOD 03/14/2025 8:15 AM [facility] Alkaline Phosphatase 145(H) 42 - 121 unit/L LAB CHEMISTRY METHOD 03/14/2025 8:15 AM [facility] Total Protein 7.4 6.0 - 8.0 g/dL LAB CHEMISTRY METHOD 03/14/2025 8:15 AM EDT [facility] Albumin 3.9 3.2 - 5.0 g/dL LAB CHEMISTRY METHOD 03/14/2025 8:15 AM EDT [facility] Total Bilirubin 0.4 0.0 - 1.4 mg/dL LAB CHEMISTRY METHOD 03/14/2025 8:15 AM EDT [facility] Blood Venous blood specimen / Unknown 03/14/2025 6:30 AM EDT 03/14/2025 7:19 AM EDT us Christian Hicks MD LAB BLOOD ORDERABLES Final Resul t [facility] [address] [place] [address], documented in this encounter Visit Diagnoses Diagnosis Other prison (current) drug therapy documented in this encounter Additional Health Concerns Infection Onset Date Last Indicated Resolved Time Respiratory Rule-Out 07/01/2025 07/01/2025 025 4:13 PM EDT documented as of this encounter Care Teams Excavating Contractor Relationship Specialty Start Date End Date Christian Hicks MD [address] [place] [address] Dr [address] [place], [place] PCP - General Internal Medicine 11/08/24 documented as of this encounter
--- OUTSIDE RECORDS SUMMARY | 2025-08-02 10:23 | XMS_ITS | Encounter Summary ---
Author Organization [employer] [facility] Address [address] [place] [address] Care Team Providers Care Auto Damage Trainee Name Role Phone Christian Hicks MD Primary Care Provider [phone] Encounter Details Date Type Department Care Team (Late st Contact Info) Description 09/20/2024 Lab Requisition [facility] Lab [address] [place] [address] Christian Hicks MD [address] [place] [address] [address] [place] Other long-term (current) drug therapy Social History Tobacco Use [...] Procedure Name Priority Date/Time Associated Diagnosis Comments BASIC METABOLIC PANEL Routine 09/20/2024 7:07 AM EST Other long-term (current) drug therapy documented in this encounter Results * (ABNORMAL) Basic metabolic panel (09/20/2024 7:07 AM EST) Sodium 145 133 - 145 mmol/L LAB CHEMISTRY METHOD 09/20/2024 8:09 AM EST [facility] Potassium 4.4 3.5 - 5.5 mmol/L LAB CHEMISTRY METHOD 09/20/2024 8:09 AM EST [facility] Chloride 111(H) 96 - 110 mmol/L LAB CHEMISTRY METHOD 09/20/2024 8:09 AM EST [facility] CO2 25 21 - 32 mmol/L LAB CHEMISTRY METHOD 09/20/2024 8:09 AM EST [facility] Anion Gap 9 3 - 11 LAB CHEMISTRY METHOD 09/20/2024 8:09 AM [facility] Glucose 202(H) 70 - 100 mg/dL LAB CHEMISTRY METHOD 09/20/2024 8:09 AM [facility] BUN 16 5 - 25 mg/dL LAB CHEMISTRY METHOD 09/20/2024 8:09 AM [facility] Creatinine 1.02 0.50 - 1.10 mg/dL LAB CHEMISTRY METHOD 09/20/2024 8:09 AM [facility] eGFR 62 >=60 mL/min/1. 73m2 LAB CHEMISTRY METHOD 09/20/2024 8:09 AM [facility] Comment:Calculation based on the Chronic Kidney Disease Epidemiology Collaboration (CKD-EPI) equation refit without adjustment for race. BUN/Creatinine Ratio 15.7 LAB CHEMISTRY METHOD 09/20/2024 8:09 AM [facility] Calcium 9.9 8.5 - 10.5 mg/dL LAB CHEMISTRY METHOD 09/20/2024 8:09 AM [facility] Blood Venous blood specimen / Unknown 09/20/2024 7:07 AM EST 09/20/2024 7:38 AM EST us Christian Hicks MD LAB BLOOD ORDERABLES Final Resul t [facility] [address] [place] [address], documented in this encounter Visit Diagnoses Diagnosis Other long term care phlebotomist (current) drug therapy documented in this encounter Additional Health Concerns Infection Onset Date Last Indicated Resolved Time Respiratory Rule-Out 07/01/2025 07/01/2025 025 4:13 PM EDT documented as of this encounter Care Teams Auto Damage Trainee Relationship Specialty Start Date End Date Christian Hicks MD [address] [place], [place] PCP - General Internal Medicine 11/08/24 documented as of this encounter
--- OUTSIDE RECORDS SUMMARY | 2025-08-02 10:23 | XMS_ITS | Encounter Summary ---
Author Organization [facility] Address [address] [place] [address] Care Team Providers Care Plasma Processor Name Role Phone Christian Hicks MD Primary Care Provider [phone] Encounter Details Date Type Department Care Team (Late st Contact Info) Description 08/15/2024 Lab Requisition [facility] Lab [address] [facility] [place] [address] Christian Hicks MD [address] [place] [address] [address] [place] Other abnormal glucose Social History Tobacco Use Types Packs/Day Years [...] Procedure Name Priority Date/Time Associated Diagnosis Comments HEMOGLOBIN A1C Routine 08/15/2024 7:18 AM EST Other abnormal glucose documented in this encounter Results * Hemoglobin A1c (08/15/2024 7:18 AM EST) Hemoglobin A1C 6.4 <6.5 % LAB CHEMISTRY METHOD 08/15/2024 11:34 AM EST [facility] Mean Bld Glu Estim. 137 mg/dL LAB CHEMISTRY METHOD 08/15/2024 11:34 AM EST [facility] Blood Venous blood specimen / Unknown 08/15/2024 7:18 AM EST 08/15/2024 9:26 AM EST us Christian Hicks MD LAB BLOOD ORDERABLES Final Resul t [facility] [address] [place] [address], documented in this encounter Visit Diagnoses Diagnosis Other abnormal glucose documented in this encounter Additional Health Concerns Infection Onset Date Last Indicated Resolved Time Respiratory Rule-Out 07/01/2025 07/01/2025 025 4:13 PM EDT documented as of this encounter Care Teams Plasma Processor Relationship Specialty Start Date End Date Christian Hicks MD [address] [place] [address] Dr [address] [place] PCP - General Internal Medicine 11/08/24 documented as of this encounter
--- OUTSIDE RECORDS SUMMARY | 2025-08-02 10:23 | XMS_ITS ---
Author Name [facility] Organization Unknown Care Team Organization Name Specialty Phone Email Start Date End Da te [facility] 05/12/2024 [facility] [place] JENNIFER SNELL [facility] 02/24/2023 [facility] 03/14/2019 03/14/2019
--- OUTSIDE RECORDS SUMMARY | 2025-08-02 10:23 | XMS_ITS | Encounter Summary ---
Author Organization [employer] Address [address] [place] [address] Care Team Providers Care In Class Special Education Teacher Name Role Phone Christian Hicks MD Primary Care Provider [phone] Encounter Details Date Type Department Care Team (Late st Contact Info) Description 07/04/[address] [facility] Lab [address] [place] [address] Christian Hicks MD [address] [place] [address] Dr [address] [place], [place] Other jail (current) drug therapy; Prediabetes Social History Tobacco Use Types Packs/Day Years [...] Diagnosis Comments CBC WITH AUTO DIFFERENTIAL Routine 07/04/2025 6:55 AM EDT Other termite exterminator (current) drug therapy Prediabetes CBC AND DIFFERENTIAL Routine 07/04/2025 6:55 AM EDT Other jail (current) drug therapy Prediabetes HEMOGLOBIN A1C Routine 07/04/2025 6:55 AM EDT Other jail (current) drug therapy Prediabetes documented in this encounter Results * CBC auto differential (07/04/2025 6:55 AM EDT) WBC 5.3 4.8 - 10.8 K/[facility] LAB HEMETOLOGY METHOD 07/04/2025 7:59 AM EDT [facility] LAB RBC 4.50 3.80 - 4.80 M/mcL LAB HEMETOLOGY METHOD 07/04/2025 7:59 AM [facility] LAB Hemoglobin 13.0 11.5 - 16.0 g/dL LAB HEMETOLOGY METHOD 07/04/2025 7:59 AM [facility] LAB Hematocrit 39.1 35.0 - 47.0 % LAB HEMETOLOGY METHOD 07/04/2025 7:59 AM [facility] LAB MCV 87.1 79.0 - 98.0 FL LAB HEMETOLOGY METHOD 07/04/2025 7:59 AM [facility] LAB MCH 29.0 27.0 - 32.0 pcg LAB HEMETOLOGY METHOD 07/04/2025 7:59 AM [facility] LAB MCHC 33.2 32.0 - 37.0 g/dL LAB HEMETOLOGY METHOD 07/04/2025 7:59 AM [facility] LAB RDW 12.5 11.0 - 15.0 % LAB HEMETOLOGY METHOD 07/04/2025 7:59 AM [facility] LAB Platelets 293 130 - 400 K/mcL LAB HEMETOLOGY METHOD 07/04/2025 7:59 AM [facility] LAB MPV 10.3 7.0 - 11.0 FL LAB HEMETOLOGY METHOD 07/04/2025 7:59 AM [facility] LAB NRBC 0.0 <1.0 % LAB HEMETOLOGY METHOD 07/04/2025 7:59 AM [facility] LAB NRBC Absolute 0.00 <0.10 K/mcL LAB HEMETOLOGY METHOD 07/04/2025 7:59 AM [facility] LAB Neutrophils Relative 44.6 % LAB HEMETOLOGY METHOD 07/04/2025 7:59 AM [facility] LAB Lymphocytes Relative 39.0 % LAB HEMETOLOGY METHOD 07/04/2025 7:59 AM EDT [facility] LAB Monocytes Relative 9.7 % LAB HEMETOLOGY METHOD 07/04/2025 7:59 AM EDT [facility] LAB Eosinophils Relative 5.6 % LAB HEMETOLOGY METHOD [facility] Basophils Relative 0.7 % LAB HEMETOLOGY METHOD 07/04/2025 7:59 AM EDT [facility] LAB Immature Granulocytes Relative 0.4 % LAB HEMETOLOGY METHOD 07/04/2025 7:59 AM EDT [facility] LAB Neutrophils Absolute 2.38 1.50 - 7.00 K/mcL LAB HEMETOLOGY METHOD 07/04[facility]2025 7[facility] Lymphocytes Absolute 2.08 1.00 - 5.00 K/mcL LAB HEMETOLOGY METHOD 07/04/2025 7:59 [facility] Monocytes Absolute 0.52 0.20 - 1.00 K/mcL LAB HEMETOLOGY METHOD 07/04/2025 7:59 [facility] Eosinophils Absolute 0.30 0.00 - 0.50 K/mcL LAB HEMETOLOGY METHOD 07/04/2025 7:59 AM [facility] LAB Basophils Absolute 0.04 0.00 - 0.20 K/mcL LAB HEMETOLOGY METHOD 07/04/2025 7:59 [facility] Immature Granulocytes Absolute 0.02 0.00 - 0.03 K/mcL LAB HEMETOLOGY METHOD 07/04/2025 7:59 [facility] Blood Venous blood specimen / Unknown 07/04/2025 6:55 AM EDT 07/04/2025 7:34 AM EDT us Christian Hicks MD LAB BLOOD ORDERABLES Final Resul t [facility] LAB [address] [place] [address], [place] [phone] * (ABNORMAL) Hemoglobin A1c (07/04/2025 6:55 AM EDT) Hemoglobin A1C 7.5(H) <6.5 % LAB CHEMISTRY METHOD 07/04/2025 12:35 PM EDT [facility] LAB Mean Bld Glu Estim. 169 mg/dL LAB CHEMISTRY METHOD 07/04/2025 12:35 PM EDT [facility] LAB Blood Venous blood specimen / Unknown 07/04/2025 6:55 AM EDT 07/04/2025 7:34 AM EDT us Christian Hicks MD LAB BLOOD ORDERABLES Final Resul t [facility] LAB [address] [place] [address], [place] [phone] documented in this encounter Visit Diagnoses Diagnosis Other jail (current) drug therapy Prediabetes Other abnormal glucose documented in this encounter Care Teams In Class Special Education Teacher Relationship Specialty Start Date End Date Christian Hicks MD [address] [place] [address] Dr [address] MARIAMA Aguiar PCP - General Internal Medicine 11/08/24 documented as of this encounter
--- OUTSIDE RECORDS SUMMARY | 2025-08-02 10:23 | XMS_ITS | Encounter Summary ---
Author Organization [employer] Address [address] [place] [address] Care Team Providers Care Hardware Manager Name Role Phone Christian Hicks MD Primary Care Provider [phone] Encounter Details Date Type Department Care Team (Late st Contact Info) Description 04/11/[address] [facility] Lab [address] [place] [address] Christian Hicks MD [address] [place] [address] Dr [address] [place], [place] Other jail (current) drug therapy; Prediabetes Social [...] Diagnosis Comments CBC WITH AUTO DIFFERENTIAL Routine 04/11/2025 6:30 AM EDT Other terminal block assembler (current) drug therapy Prediabetes CBC AND DIFFERENTIAL Routine 04/11/2025 6:30 AM EDT Other jail (current) drug therapy Prediabetes HEMOGLOBIN A1C Routine 04/11/2025 6:30 AM EDT Other jail (current) drug therapy Prediabetes documented in this encounter Results * (ABNORMAL) CBC auto differential (04/11/2025 6:30 AM EDT) [facility] Signature WBC 10.4 4.8 - 10.8 K/[facility] LAB HEMETOLOGY METHOD 04/11/2025 7:40 AM EDT [facility] RBC 4.80 3.80 - 4.80 M/mcL LAB HEMETOLOGY METHOD 04/11/2025 7:40 AM [facility] LAB Hemoglobin 13.7 11.5 - 16.0 g/dL LAB HEMETOLOGY METHOD 04/11/2025 7:40 AM [facility] LAB Hematocrit 41.6 35.0 - 47.0 % LAB HEMETOLOGY METHOD 04/11/2025 7:40 AM [facility] LAB MCV 87.6 79.0 - 98.0 FL LAB HEMETOLOGY METHOD 04/11/2025 7:40 AM [facility] LAB MCH 28.8 27.0 - 32.0 pcg LAB HEMETOLOGY METHOD 04/11/2025 7:40 AM [facility] LAB MCHC 32.9 32.0 - 37.0 g/dL LAB HEMETOLOGY METHOD 04/11/2025 7:40 AM [facility] LAB RDW 12.8 11.0 - 15.0 % LAB HEMETOLOGY METHOD 04/11/2025 7:40 AM [facility] LAB Platelets 304 130 - 400 K/mcL LAB HEMETOLOGY METHOD 04/11/2025 7:40 AM [facility] LAB MPV 10.7 7.0 - 11.0 FL LAB HEMETOLOGY METHOD 04/11/2025 7:40 AM [facility] LAB NRBC 0.0 <1.0 % LAB HEMETOLOGY METHOD 04/11/2025 7:40 AM [facility] LAB NRBC Absolute 0.00 <0.10 K/mcL LAB HEMETOLOGY METHOD 04/11/2025 7:40 AM [facility] LAB Neutrophils Relative 70.3 % LAB HEMETOLOGY METHOD 04/11/2025 7:40 AM [facility] LAB Lymphocytes Relative 18.4 % LAB HEMETOLOGY METHOD 04/11/2025 7:40 AM EDT [facility] LAB Monocytes Relative 7.7 % LAB HEMETOLOGY METHOD 04/11/2025 7:40 AM EDT [facility] LAB Eosinophils Relative 2.7 % LAB HEMETOLOGY METHOD 04/11/2025 7:40 AM EDT [facility] LAB Basophils Relative 0.6 % LAB HEMETOLOGY METHOD 04/11/2025 7:40 AM EDT [facility] LAB Immature Granulocytes Relative 0.3 % LAB HEMETOLOGY METHOD 04/11/2025 7:40 AM EDT [facility] LAB Neutrophils Absolute 7.34(H) 1.50 - 7.00 K/mcL LAB [facility]EMETOLOGY [facility] Lymphocytes Absolute 1.92 1.00 - 5.00 K/mcL LAB HEMETOLOGY METHOD 04/11/2025 7:40 AM EDT [facility] LAB Monocytes Absolute 0.80 0.20 - 1.00 K/mcL LAB HEMETOLOGY METHOD 04/11/2025 7:40 AM EDT [facility] LAB Eosinophils Absolute 0.28 0.00 - 0.50 K/mcL LAB HEMETOLOGY METHOD 04/11/2025 7:40 AM [facility] LAB Basophils Absolute 0.06 0.00 - 0.20 K/mcL LAB HEMETOLOGY METHOD 04/11/2025 7:40 AM EDT [facility] LAB Immature Granulocytes Absolute 0.03 0.00 - 0.03 K/mcL LAB HEMETOLOGY METHOD 04/11/2025 7:40 AM T [facility] LAB Blood Venous blood specimen / Unknown 04/11/2025 6:30 AM EDT 04/11/2025 7:32 AM EDT us Christian Hicks MD LAB BLOOD ORDERABLES Final Resul t [facility] LAB [address] [place] [address], [place] [phone] * (ABNORMAL) Hemoglobin A1c (04/11/2025 6:30 AM EDT) Hemoglobin A1C 7.8(H) <6.5 % LAB CHEMISTRY METHOD 04/11/2025 10:20 AM EDT [facility] LAB Mean Bld Glu Estim. 177 mg/dL LAB CHEMISTRY METHOD 04/11/2025 10:20 AM EDT [facility] LAB Blood Venous blood specimen / Unknown 04/11/2025 6:30 AM EDT 04/11/2025 7:32 AM EDT us Christian Hicks MD LAB BLOOD ORDERABLES Final Resul t [facility] LAB [address] [place] [address], documented in this encounter Visit Diagnoses Diagnosis Other jail (current) drug therapy Prediabetes Other abnormal glucose documented in this encounter Additional Health Concerns Infection Onset Date Last Indicated Resolved Time Respiratory Rule-Out 07/01/2025 07/01/2025 025 4:13 PM EDT documented as of this encounter Care Teams Hardware Manager Relationship Specialty Start Date End Date Christian Hicks MD [address] [place], [place] PCP - General Internal Medicine 11/08/24 documented as of this encounter
--- OUTSIDE RECORDS SUMMARY | 2025-08-02 10:23 | XMS_ITS | Encounter Summary ---
Author Organization [employer] [facility] Address [address] [place] [address] Care Team Providers Care Power Press Supervisor Name Role Phone Christian Hicks MD Primary Care Provider [phone] Encounter Details Date Type Department Care Team (Late st Contact Info) Description 05/08/2025 Lab Requisition [facility] Lab [address] [place] [address] Christian Hicks MD [address] [place] [address] [address] [place] Other [facility]cc (current) drug therapy Social History Tobacco Use [...] Diagnosis Comments CBC WITH AUTO DIFFERENTIAL Routine 05/08/2025 6:20 AM EDT Other digital composer (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) drug therapy CBC AND DIFFERENTIAL Routine 05/08/2025 6:20 AM EDT Other digital composer (current) drug therapy documented in this encounter Results * CBC auto differential (05/08/2025 6:20 AM EDT) WBC 6.6 4.8 - 10.8 K/mcL LAB HEMETOLOGY METHOD 05/08/2025 8:02 AM EDT [facility] LAB RBC 4.80 3.80 - 4.80 M/mcL LAB HEMETOLOGY METHOD 05/08/2025 8:02 AM EDT [facility] LAB Hemoglobin 13.7 11.5 - 16.0 g/dL LAB HEMETOLOGY METHOD 05/08/2025 8:02 AM [facility] LAB Hematocrit 42.0 35.0 - 47.0 % LAB HEMETOLOGY METHOD 05/08/2025 8:02 AM [facility] LAB MCV 88.4 79.0 - 98.0 FL LAB HEMETOLOGY METHOD 05/08/2025 8:02 AM [facility] LAB MCH 28.8 27.0 - 32.0 pcg LAB HEMETOLOGY METHOD 05/08/2025 8:02 AM [facility] LAB MCHC 32.6 32.0 - 37.0 g/dL LAB HEMETOLOGY METHOD 05/08/2025 8:02 AM [facility] LAB RDW 13.3 11.0 - 15.0 % LAB HEMETOLOGY METHOD 05/08/2025 8:02 AM [facility] LAB Platelets 372 130 - 400 K/mcL LAB HEMETOLOGY METHOD 05/08/2025 8:02 AM [facility] LAB MPV 10.2 7.0 - 11.0 FL LAB HEMETOLOGY METHOD 05/08/2025 8:02 AM [facility] LAB NRBC 0.0 <1.0 % LAB HEMETOLOGY METHOD 05/08/2025 8:02 AM [facility] LAB NRBC Absolute 0.00 <0.10 K/mcL LAB HEMETOLOGY METHOD 05/08/2025 8:02 AM [facility] LAB Neutrophils Relative 47.0 % LAB HEMETOLOGY METHOD 05/08/2025 8:02 AM [facility] LAB Lymphocytes Relative 39.9 % LAB HEMETOLOGY METHOD 05/08/2025 8:02 AM [facility] LAB Monocytes Relative 8.3 % LAB HEMETOLOGY METHOD 05/08/2025 8:02 AM [facility] LAB Eosinophils Relative 3.8 % LAB HEMETOLOGY METHOD 05/08/2025 8:02 AM EDT [facility] LAB Basophils Relative 0.8 % LAB HEMETOLOGY METHOD 05/08/2025 8:02 AM [facility] LAB Immature Granulocytes Relative 0.2 % LAB HEMETOLOGY METHOD 05/08/2025 8:02 AM EDT [facility] LAB Neutrophils Absolute 3.11 1.50 - 7.00 K/mcL LAB HEMETOLOGY METHOD 05/08/2025 8:02 AM EDT [facility] LAB Lymphocytes Absolute 2.64 1.00 - 5.00 K/mcL LAB HEMETOLOGY METHOD 05/08/2025 8:02 AM [facility] LAB Monocytes Absolute 0.55 0.20 - 1.00 K/mcL LAB HEMETOLOGY METHOD 05/08[facility]2025 [facility] Eosinophils Absolute 0.25 0.00 - 0.50 K/mcL LAB HEMETOLOGY METHOD 05/08/2025 8:02 AM [facility] LAB Basophils Absolute 0.05 0.00 - 0.20 K/mcL LAB HEMETOLOGY METHOD 05/08/2025 8:02 AM [facility] LAB Immature Granulocytes Absolute 0.01 0.00 - 0.03 K/mcL LAB HEMETOLOGY METHOD 05/08/2025 8:02 AM [facility] LAB Blood Venous blood specimen / Unknown 05/08/2025 6:20 AM EDT 05/08/2025 7:46 AM EDT us Christian Hicks MD LAB BLOOD ORDERABLES Final Resul t [facility] LAB [address] [place] [address], documented in this encounter Visit Diagnoses Diagnosis Other mcc (current) drug therapy documented in this encounter Additional Health Concerns Infection Onset Date Last Indicated Resolved Time Respiratory Rule-Out 07/01/2025 07/01/2025 025 4:13 PM EDT documented as of this encounter Care Teams Power Press Supervisor Relationship Specialty Start Date End Date Christian Hicks MD [address] [place] [address] [address] MARIAMA Aguiar PCP - General Internal Medicine 11/08/24 documented as of this encounter
--- OUTSIDE RECORDS SUMMARY | 2025-08-02 10:23 | XMS_ITS | Clinical Summary ---
Author Organization [facility] Address [address] [place] [address] Phone Care Team Providers Care Top Steep Tender Name Role Phone Christian Hicks MD Primary Care Provider [phone] Encounters Date Type Department Care Team Description 07/04/2025 Lab Requisition [facility] [address] [place] [phone] Christian Hicks MD [facility] drug therapy; Prediabetes 07/01/2025 Lab Requisition [facility] [address] [place] [phone] Christian Hicks MD Cough, unspecified; Acute pharyngitis, unspecified 06/06/2025 Lab Requisition [facility] [address] [place] [phone] Christian Hicks MD Other emt intermediate (current) drug therapy 05/28/2025 Lab Requisition [facility] [address] [place] [phone] Christian Hicks MD Urinary tract infection, site not specified 05/08/2025 Lab Requisition [facility] [address] [place] [phone] Christian Hicks MD Other emt intermediate (current) drug therapy from Last 3 Months Social History Tobacco Use Types Packs/Day Years Used Date Smoking Tobacco: Never Assessed Comments Unknown Sex and Gender Information Value Date Recorded Sex Assigned at Not on file Legal Sex Female 10:18 AM EST Gender Identity Not on file Sexual Orientation Not on file Plan of Treatment Health Maintenance Due Date Last Done Comments Breast Cancer Screening 1961 Colorectal Cancer Screening: Colonoscopy 1961 DTaP,Tdap,and Td Vaccines (1 - Tdap) 01/07/1980 Cervical Cancer Screening: P ap Smear 1982 Pneumococcal Vaccine: 50+ Years (1 of 1 - PCV) 2011 Zoster Vaccines (1 of 2) 2011 HIV Screening 09/05/2022 Hepatitis C Screening 09/05/2022 Social Influencers of Health Screening 09/05/2022 Depression Screening 10/03/2024 COVID-19 Vaccine (1 - 2023-2 5 season) 2025 Influenza Vaccine (#1) 2025 Cholesterol Screening (Lipid Panel) 03/14/2030 03/14/2025, 09/11/2024, 08/08/2024 RSV Immunization Adult Patients (1 - 1-dose 75+ series) 01/07/2036 HIB Vaccines Aged Out No longer eligi ble based on patient's age to complete this topic HPV Vaccines Aged Out No longer eligi ble based on patient's age to complete this topic Hepatitis A Vaccines Aged Out No long er eligible based on patient's age to complete this topic Hepatitis B Vaccines Aged Out No long er eligible based on patient's age to complete this topic IPV Vaccines Aged Out No longer eligi ble based on patient's age to complete this topic MMR Vaccines Aged Out No longer eligi ble based on patient's age to complete this topic Meningococcal ACWY Vaccine Aged Out N o longer eligible based on patient's age to complete this topic Meningococcal B Vaccine Aged Out No l onger eligible based on patient's age to complete this topic RSV Immunization Patients Under 20 months Aged Out No longer eligible b ased on patient's age to complete this topic Varicella Vaccines Aged Out No longer eligible based on patient's age to complete this topic Procedures Procedure Name Priority Date/Time Associated Diagnosis Comments CBC WITH AUTO DIFFERENTIAL Routine 07/04/2025 6:55 AM EDT [facility] Prediabetes CBC AND DIFFERENTIAL Routine 07/04/2025 6:55 AM EDT Other emt intermediate (current) drug therapy Prediabetes HEMOGLOBIN A1C Routine 07/04/2025 6:55 AM EDT [facility] drug therapy Prediabetes [id number], RSV, FLU A AND B QUALITATIVE RT-PCR, LOCAL REFERENCE LAB Routine 07/01/2025 1:10 AM EDT Cough, unspecified Acute pharyngitis, unspecified CBC WITH AUTO DIFFERENTIAL Routine 06/06/2025 6:45 AM EDT Other emt intermediate (current) drug therapy CBC AND DIFFERENTIAL Routine 06/06/2025 6:45 AM EDT [facility] drug therapy URINALYSIS WITH REFLEX MICROSCOPIC AND CULTURE Routine 05/28/2025 5:30 AM EDT Urinary tract infection, site not specified URINALYSIS WITH REFLEX MICROSCOPIC AND CULTURE Routine 05/28/2025 5:30 AM EDT Urinary tract infection, site not specified CULTURE URINE Routine 05/28/2025 5:30 AM EDT Urinary tract infection, site not specified CBC WITH AUTO DIFFERENTIAL Routine 05/08/2025 6:20 AM EDT Other emt intermediate (current) drug therapy CBC AND DIFFERENTIAL Routine 05/08/2025 6:20 AM EDT [facility] drug [facility] LIPID PANEL WITH REFLEX TO DIRECT LDL Routine 03/14/2025 6:30 AM EDT [facility] drug therapy from Last 3 Months or Most Recently Relevant to Health Maintenance Results * CBC auto differential (07/04/2025 6:55 AM EDT) Only the most recent of3 resultswithin the time period is included. WBC 5.3 4.8 - 10.8 [facility] LAB HEMETOLOGY METHOD 07/04/2025 7:59 AM EDT [facility] RBC 4.50 3.80 - 4.80 M/mcL LAB HEMETOLOGY METHOD 07/04/2025 7:59 AM EDT [facility] Hemoglobin 13.0 11.5 - 16.0 g/dL LAB HEMETOLOGY METHOD 07/04/2025 7:59 AM [facility] Hematocrit 39.1 35.0 - 47.0 % LAB HEMETOLOGY METHOD 07/04/2025 7:59 AM [facility] MCV 87.1 79.0 - 98.0 FL LAB HEMETOLOGY METHOD 07/04/2025 7:59 AM [facility] MCH 29.0 27.0 - 32.0 pcg LAB HEMETOLOGY METHOD 07/04/2025 7:59 AM [facility] MCHC 33.2 32.0 - 37.0 g/dL LAB HEMETOLOGY METHOD 07/04/2025 7:59 AM [facility] RDW 12.5 11.0 - 15.0 % LAB HEMETOLOGY METHOD 07/04/2025 7:59 AM [facility] Platelets 293 130 - 400 K/mcL LAB HEMETOLOGY METHOD 07/04/2025 7:59 AM [facility] MPV 10.3 7.0 - 11.0 FL LAB HEMETOLOGY METHOD 07/04/2025 7:59 AM [facility] NRBC 0.0 <1.0 % LAB HEMETOLOGY METHOD 07/04/2025 7:59 AM [facility] NRBC Absolute 0.00 <0.10 K/mcL LAB HEMETOLOGY METHOD 07/04/2025 7:59 AM [facility] Neutrophils Relative 44.6 % LAB HEMETOLOGY METHOD 07/04/2025 7:59 AM [facility] Lymphocytes Relative 39.0 % LAB HEMETOLOGY METHOD 07/04/2025 7:59 AM [facility] Monocytes Relative 9.7 % LAB HEMETOLOGY METHOD 07/04/2025 7:59 AM EDT [facility] Eosinophils Relative 5.6 % LAB HEMETOLOGY METHOD 07/04/2025 7:59 AM EDT [facility] Basophils Relative 0.7 % LAB HEMETOLOGY METHOD 07/04/2025 7:59 AM EDT [facility] Immature Granulocytes Relative 0.4 % LAB HEMETOLOGY METHOD 07/04/2025 7:59 AM EDT [facility] Neutrophils Absolute 2.38 1.50 - 7.00 K/mcL LAB HEMETOLOGY METHOD 07/04/2025 7:59 AM EDT [facility] Lymphocytes Absolute 2.08 1.00 - 5.00 K/mcL LAB HEMETOLOGY METHOD 07/04/2025 7:59 AM EDT [facility] Monocytes Absolute 0.52 0.20 - 1.00 K/mcL LAB HEMETOLOGY METHOD 07/04/2025 7:59 AM EDT [facility] Eosinophils Absolute 0.30 0.00 - 0.50 K/mcL LAB HEMETOLOGY METHOD 07/04/2025 7:59 AM EDT [facility] Basophils Absolute 0.04 0.00 - 0.20 K/mcL LAB HEMETOLOGY METHOD 07/04/2025 7:59 AM EDT [facility] Immature Granulocytes Absolute 0.02 0.00 - 0.03 K/mcL LAB HEMETOLOGY METHOD 07/04/2025 7:59 AM EDT [facility] Blood Venous blood specimen / Unknown 07/04/2025 6:55 AM EDT 07/04/2025 7:34 AM EDT us Christian Hicks MD LAB BLOOD ORDERABLES Final Resul t [facility] [address] [place] [address], * (ABNORMAL) Hemoglobin A1c (07/04/2025 6:55 AM EDT) Hemoglobin A1C 7.5(H) <6.5 % LAB CHEMISTRY METHOD 07/04/2025 12:35 PM EDT [facility] Mean Bld Glu Estim. 169 mg/dL LAB CHEMISTRY METHOD 07/04/2025 12:35 PM EDT [facility] Blood Venous blood specimen / Unknown 07/04/2025 6:55 AM EDT 07/04/2025 7:34 AM EDT us Christian Hicks MD LAB BLOOD ORDERABLES Final Resul t [facility] [address] [place] [address], * [id number], RSV, Influenza A and B qualitative RT-PCR (07/01/2025 1:10 AM EDT) Pathologist [facility] SARS COV-2 Not Detected Not Detected LAB MOLECULAR DIAGNOSTICS METHOD 07/01/2025 4:13 PM EDT [facility] Comment: Disclaimer: The manner in which this information is used to guide patient care is the responsibility of the healthcare provider. Testing was performed using the [employer] Al[employer] m SARS-CoV-2 test. This test has been [...] for Healthcare Providers can be found at: https://www.fda.gov/media/304683/download Fact sheet for Patients can be found at: https://www.fda.gov/media/067714/download Influenza A PCR Not Detected Not Detected LAB MOLECULAR DIAGNOSTICS METHOD 07/01/2025 4:13 PM EDT [facility] Influenza B PCR Not Detected Not Detected LAB MOLECULAR DIAGNOSTICS METHOD 07/01/2025 4:13 PM T [facility] RSV PCR Not Detected Not Detected LAB MOLECULAR DIAGNOSTICS METHOD 07/01/2025 4:13 PM EDT [facility] Swab Nasopharyngeal structure / Unknown Non-blood Collection / Unknown 07/01/2025 1:10 AM EDT 07/01/2025 1:11 PM EDT Christian Hicks MD LAB MICROBIOLOGY - GENERAL ORDER DELBERT Final Result [facility] [address] [place] [address], [place] [phone] * (ABNORMAL) Urinalysis with reflex microscopic and culture (05/28/2025 5:30 AM EDT) Specific Cornish Urine 1.027 1.003 - 1.030 LAB URINALYSIS - AUTOMATED METHOD 05/28/2025 8:41 AM [facility] pH, Urine 5.0 5.0 - 8.0 pH LAB URINALYSIS - AUTOMATED METHOD 05/28/2025 8:41 AM [facility] Leukocytes, Urine Trace(A) Negative LAB URINALYSIS - AUTOMATED METHOD 05/28/2025 8:41 AM [facility] Nitrite, Urine Negative Negative LAB URINALYSIS - AUTOMATED METHOD 05/28/2025 8:41 AM [facility] Protein, Urine Negative <=Trace mg/dL LAB URINALYSIS - AUTOMATED METHOD 05/28/2025 8:41 AM [facility] Glucose, Urine >=1000(A) Negative mg/dL LAB URINALYSIS - AUTOMATED METHOD 05/28/2025 8:41 AM [facility] Ketones, Urine Negative Negative mg/dL LAB URINALYSIS - AUTOMATED METHOD 05/28/2025 8:41 AM [facility] Urobilinogen , Urine 0.2 0.2 - 1.0 mg/dL LAB URINALYSIS - AUTOMATED METHOD 05/28/2025 8:41 AM [facility] Bilirubin, Urine Negative Negative LAB URINALYSIS - AUTOMATED METHOD 05/28/2025 8:41 AM [facility] Blood, Urine Negative Negative LAB URINALYSIS - AUTOMATED METHOD 05/28/2025 8:41 AM [facility] RBC, Urine 3.7 0 - 4 /HPF LAB URINALYSIS - AUTOMATED METHOD 05/28/2025 8:41 AM [facility] WBC, Urine 16.2(H) 0 - 4 /HPF LAB URINALYSIS - AUTOMATED METHOD 05/28/2025 8:41 AM [facility] Squamous Epithelial, Urine >100(H) 0 - 60 /LPF LAB URINALYSIS - AUTOMATED METHOD 05/28/2025 8:41 AM [facility] Bacteria, Urine Negative Negative /HPF LAB URINALYSIS - AUTOMATED METHOD 05/28/2025 8:41 AM [facility] Hyaline Casts, Urine 4.4(H) 0 - 3 /LPF LAB URINALYSIS - AUTOMATED METHOD 05/28/2025 8:41 AM [facility] Urine Urine specimen obtained by clean catch procedure / Unknown 05/28/2025 5:30 AM EDT 05/28/2025 8:27 AM EDT us Christian Hicks MD LAB URINE ORDERABLES Final Resul t [facility] [address] [place] [address], * Culture urine (05/28/2025 5:30 AM EDT) Culture, 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 Suggest repeat specimen if clinically indicated. 05/29/2025 10:33 AM T [facility] Urine Urine specimen obtained by clean catch procedure / Unknown 05/28/2025 5:30 AM EDT 05/28/2025 8:41 AM EDT Christian Hicks MD LAB MICROBIOLOGY - GENERAL ORDER DELBERT Final Result [facility] [address] [place] [address], [place] [phone] * (ABNORMAL) Lipid panel with reflex to direct LDL (03/14/2025 6:30 AM EDT) Cholesterol 255(H) 0 - 200 mg/dL LAB CHEMISTRY METHOD 03/14/2025 8:15 AM [facility] Triglycerides 264(H) 0 - 150 mg/dL LAB CHEMISTRY METHOD 03/14/2025 8:15 AM [facility] HDL 45 >=40 mg/dL LAB CHEMISTRY METHOD 03/14/2025 8:15 AM [facility] LDL Calculated 157(H) 0 - 100 mg/dL LAB CHEMISTRY METHOD 03/14/2025 8:15 AM [facility] VLDL Cholesterol Boogie 52.8 mg/dL LAB CHEMISTRY METHOD 03/14/2025 8:15 AM [facility] Non HDL Chol. (LDL+VLDL) 210(H) <145 mg/dL LAB CHEMISTRY METHOD 03/14/2025 8:15 AM [facility] Chol/HDL Ratio 5.7(H) 0.0 - 4.4 LAB CHEMISTRY METHOD 03/14/2025 8:15 AM [facility] Blood Venous blood specimen / Unknown 03/14/2025 6:30 AM EDT 03/14/2025 7:19 AM EDT Christian Hicks MD LAB BLOOD ORDERABLES Final Resul t [facility] [address] [place] [address], from Last 3 Months or Most Recently Relevant to Health Maintenance Insurance [facility] Care Teams Top Steep Tender Relationship Specialty Start Date End Date Christian Hicks MD [address] [place] [address] [address] MARIAMA Aguiar PCP - General Internal Medicine 11/08/24
--- OUTSIDE RECORDS SUMMARY | 2025-08-02 10:23 | XMS_ITS | Encounter Summary ---
Author Organization [facility] Address [address] [place] [address] Care Team Providers Care Dairy Store Manager Name Role Phone Christian Hicks MD Primary Care Provider [phone] Encounter Details Date Type Department Care Team (Late st Contact Info) Description 12/25/2024 Lab Requisition [facility] [address] [place] [phone] Christian Hicks MD [address] [place] [address] [address] [place], [place] Prediabetes Social History Tobacco Use Types Packs/Day [...] Date/Time Associated Diagnosis Comments HEMOGLOBIN A1C Routine 12/25/2024 6:45 PM EDT Prediabetes documented in this encounter Results * (ABNORMAL) Hemoglobin A1c (12/25/2024 6:45 PM EDT) Hemoglobin A1C 6.8(H) <6.5 % LAB CHEMISTRY METHOD 12/25/2024 9:09 PM EDT [facility] Mean Bld Glu Estim. 148 mg/dL LAB CHEMISTRY METHOD 12/25/2024 9:09 PM EDT [facility] Blood Venous blood specimen / Unknown 12/25/2024 6:45 PM EDT 12/25/2024 7:05 PM EDT us Chrsitian Hicks MD LAB BLOOD ORDERABLES Final Resul t [facility] [address] [place] [address], documented in this encounter Visit Diagnoses Diagnosis Prediabetes Other abnormal glucose documented in this encounter Additional Health Concerns Infection Onset Date Last Indicated Resolved Time Respiratory Rule-Out 07/01/2025 07/01/2025 025 4:13 PM EDT documented as of this encounter Care Teams Dairy Store Manager Relationship Specialty Start Date End Date Christian Hicks MD [address] [place] [address] Dr [address] [place], [place] PCP - General Internal Medicine 11/08/24 documented as of this encounter
--- OUTSIDE RECORDS SUMMARY | 2025-08-02 10:23 | XMS_ITS | Encounter Summary ---
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, sequela (CMS/HCC) CBC WITH AUTO DIFFERENTIAL Routine 09/11/2024 6:07 AM EST 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, sequela (CMS/HCC) CBC AND DIFFERENTIAL Routine 09/11/2024 6:07 AM EST 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, sequela (CMS/HCC) THYROID STIMULATING HORMONE Routine 09/11/2024 6:07 AM EST 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, sequela (CMS/HCC) COMPREHENSIVE METABOLIC PANEL Routine 09/11/2024 6:07 AM EST 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, sequela (CMS/HCC) documented in this encounter Results * CBC auto differential (09/11/2024 6:07 AM EST) Pathologist [facility] WBC 5.9 4.8 - 10.8 K/mcL LAB HEMETOLOGY METHOD 09/11/2024 6:46 AM [facility] RBC 4.60 3.80 - 4.80 M/mcL LAB HEMETOLOGY METHOD 09/11/2024 6:46 AM [facility] Hemoglobin 13.4 11.5 - 16.0 g/dL LAB HEMETOLOGY METHOD 09/11/2024 6:46 AM [facility] LAB Hematocrit 39.9 35.0 - 47.0 % LAB HEMETOLOGY METHOD 09/11/2024 6:46 AM [facility] MCV 86.7 79.0 - 98.0 FL LAB HEMETOLOGY METHOD 09/11/2024 6:46 AM [facility] MCH 29.1 27.0 - 32.0 pcg LAB HEMETOLOGY METHOD 09/11/2024 6:46 AM [facility] MCHC 33.6 32.0 - 37.0 g/dL LAB HEMETOLOGY METHOD 09/11/2024 6:46 AM [facility] RDW 12.3 11.0 - 15.0 % LAB HEMETOLOGY METHOD 09/11/2024 6:46 AM [facility] LAB Platelets 310 130 - 400 K/mcL LAB HEMETOLOGY METHOD 09/11/2024 6:46 AM [facility] MPV 10.2 7.0 - 11.0 FL LAB HEMETOLOGY METHOD 09/11/2024 6:46 AM [facility] NRBC 0.0 <1.0 % LAB HEMETOLOGY METHOD 09/11/2024 6:46 AM [facility] NRBC Absolute 0.00 <0.10 K/mcL LAB HEMETOLOGY METHOD 09/11/2024 6:46 AM [facility] Neutrophils Relative 46.6 % LAB HEMETOLOGY METHOD 09/11/2024 6:46 AM [facility] Lymphocytes Relative 40.2 % LAB HEMETOLOGY METHOD 09/11/2024 6:46 AM [facility] Monocytes Relative 7.9 % LAB HEMETOLOGY METHOD 09/11/2024 6:46 AM [facility] Eosinophils Relative 4.6 % LAB HEMETOLOGY METHOD 09/11/2024 6:46 AM [facility] Basophils Relative 0.5 % LAB HEMETOLOGY METHOD 09/11/2024 6:46 AM [facility] Immature Granulocytes Relative 0.2 % LAB HEMETOLOGY METHOD 09/11/2024 6:46 AM [facility] Neutrophils Absolute 2.76 1.50 - 7.00 K/mcL LAB HEMETOLOGY METHOD 09/11/2024 6:46 AM [facility] Lymphocytes Absolute 2.38 1.00 - 5.00 K/mcL LAB HEMETOLOGY METHOD 09/11/2024 6:46 AM [facility] Monocytes Absolute 0.47 0.20 - 1.00 K/mcL LAB HEMETOLOGY METHOD 09/11/2024 6:46 AM [facility] Eosinophils Absolute 0.27 0.00 - 0.50 K/mcL LAB HEMETOLOGY METHOD 09/11/2024 6:46 AM [facility] Basophils Absolute 0.03 0.00 - 0.20 K/[facility] LAB HEMETOLOGY METHOD 09/11/2024 6:[address] [facility] Immature Granulocytes Absolute 0.01 0.00 - 0.03 K/[facility] LAB HEMETOLOGY METHOD 09/11/2024 6:[address] [facility] Blood Venous blood specimen / Unknown 09/11/2024 6:07 AM EST 09/11/2024 6:30 AM EST us Christian Hicks MD LAB BLOOD ORDERABLES Final Resul t Performing Organization Address City/[facility]/ZIP Co de Phone Number [facility] [address] [place] [address], [place] [phone] * Thyroid stimulating hormone (09/11/2024 6:07 AM EST) TSH 1.20 0.40 - 4.00 mcIU/mL LAB CHEMISTRY METHOD 09/11/2024 7:19 AM [facility] Blood Venous blood specimen / Unknown 09/11/2024 6:07 AM EST 09/11/2024 6:30 AM EST us Christian Hicks MD LAB BLOOD ORDERABLES Final Resul t Performing Organization Address City/[facility]/ZIP Co de Phone Number [facility] [address] [place] [address], [place] [phone] * (ABNORMAL) Lipid panel with reflex to direct LDL (09/11/2024 6:07 AM EST) Cholesterol 185 0 - 200 mg/dL LAB CHEMISTRY METHOD 09/11/2024 7:08 AM [facility] Triglycerides 163(H) 0 - 150 mg/dL LAB CHEMISTRY METHOD 09/11/2024 7:08 AM [facility] HDL 46 >=40 mg/dL LAB CHEMISTRY METHOD 09/11/2024 7:08 AM [facility] LDL Calculated 106(H) 0 - 100 mg/dL LAB CHEMISTRY METHOD 09/11/2024 7:08 AM [facility] VLDL Cholesterol Boogie 32.6 mg/dL LAB CHEMISTRY METHOD 09/11/2024 7:08 AM [facility] Non HDL Chol. (LDL+VLDL) 139 <145 mg/dL LAB CHEMISTRY METHOD 09/11/2024 7:08 AM [facility] Chol/HDL Ratio 4.0 0.0 - 4.4 LAB CHEMISTRY METHOD 09/11/2024 7:08 AM [facility] Blood Venous blood specimen / Unknown 09/11/2024 6:07 AM EST 09/11/2024 6:30 AM EST us Christian Hicks MD LAB BLOOD ORDERABLES Final Resul t [facility] [address] [place] [address], [place] [phone] * (ABNORMAL) Comprehensive metabolic panel (09/11/2024 6:07 AM EST) Sodium 144 133 - 145 mmol/L LAB CHEMISTRY METHOD 09/11/2024 7:08 AM [facility] Potassium 4.0 3.5 - 5.5 mmol/L LAB CHEMISTRY METHOD 09/11/2024 7:08 AM [facility] Chloride 112(H) 96 - 110 mmol/L LAB CHEMISTRY METHOD 09/11/2024 7:08 AM [facility] CO2 25 21 - 32 mmol/L LAB CHEMISTRY METHOD 09/11/2024 7:08 AM [facility] Anion Gap 7 3 - 11 LAB CHEMISTRY METHOD 09/11/2024 7:08 AM [facility] Glucose 137(H) 70 - 100 mg/dL LAB CHEMISTRY METHOD 09/11/2024 7:08 AM [facility] BUN 21 5 - 25 mg/dL LAB CHEMISTRY METHOD 09/11/2024 7:08 AM [facility] Creatinine 1.20(H) 0.50 - 1.10 mg/dL LAB CHEMISTRY METHOD 09/11/2024 7:08 AM [facility] eGFR 51(L) >=60 mL/min/1. 73m2 LAB CHEMISTRY METHOD 09/11/2024 7:08 AM [facility] Comment:Calculation based on the Chronic Kidney Disease Epidemiology Collaboration (CKD-EPI) equation refit without adjustment for race. BUN/Creatinine Ratio 17.5 LAB CHEMISTRY METHOD 09/11/2024 7:08 AM [facility] Calcium 9.9 8.5 - 10.5 mg/dL LAB CHEMISTRY METHOD 09/11/2024 7:08 AM [facility] AST (SGOT) 21 10 - 42 unit/L LAB CHEMISTRY METHOD 09/11/2024 7:08 AM [facility] ALT (SGPT) 45 10 - 60 unit/L LAB CHEMISTRY METHOD 09/11/2024 7:08 AM [facility] Alkaline Phosphatase 133(H) 42 - 121 unit/L LAB CHEMISTRY METHOD 09/11/2024 7:08 AM [facility] Total Protein 6.9 6.0 - 8.0 g/dL LAB CHEMISTRY METHOD 09/11/2024 7:08 AM [facility] Albumin 3.7 3.2 - 5.0 g/dL LAB CHEMISTRY METHOD 09/11/2024 7:08 AM [facility] Total Bilirubin 0.3 0.0 - 1.4 mg/dL LAB CHEMISTRY METHOD 09/11/2024 7:08 AM [facility] Blood Venous blood specimen / Unknown 09/11/2024 6:07 AM EST 09/11/2024 6:30 AM EST us Christian Snow MD LAB BLOOD ORDERABLES Final Resul t [facility] LAB [address] [place] [address], documented in this encounter Visit Diagnoses Diagnosis 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
--- OUTSIDE RECORDS SUMMARY | 2025-08-02 10:23 | XMS_ITS | Encounter Summary ---
Author Organization [facility] Address [address] [place] [address] Care Team Providers Care Learning Technologies Specialist Name Role Phone Christian Hicks MD Primary Care Provider [phone] Encounter Details Date Type Department Care Team (Late st Contact Info) Description 06/06/2025 Lab Requisition [facility] Lab [address] [place] [address] Christian Hicks MD [address] [place] [address] [address] [place] Other jail (current) drug therapy Social History Tobacco Use [...] Diagnosis Comments CBC WITH AUTO DIFFERENTIAL Routine 06/06/2025 6:45 AM EDT 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 CBC AND DIFFERENTIAL Routine 06/06/2025 6:45 AM EDT 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 documented in this encounter Results * CBC auto differential (06/06/2025 6:45 AM EDT) WBC 7.1 4.8 - 10.8 K/mcL LAB HEMETOLOGY METHOD 06/06/2025 7:56 AM EDT [facility] RBC 4.70 3.80 - 4.80 M/mcL LAB HEMETOLOGY METHOD 06/06/2025 7:56 AM EDT [facility] Hemoglobin 13.7 11.5 - 16.0 g/dL LAB HEMETOLOGY METHOD 06/06/2025 7:56 AM T [facility] Hematocrit 41.5 35.0 - 47.0 % LAB HEMETOLOGY METHOD 06/06/2025 7:56 AM [facility] LAB MCV 87.7 79.0 - 98.0 FL LAB HEMETOLOGY METHOD 06/06/2025 7:56 AM [facility] LAB MCH 29.0 27.0 - 32.0 pcg LAB HEMETOLOGY METHOD 06/06/2025 7:56 AM [facility] LAB MCHC 33.0 32.0 - 37.0 g/dL LAB HEMETOLOGY METHOD 06/06/2025 7:56 AM [facility] LAB RDW 12.6 11.0 - 15.0 % LAB HEMETOLOGY METHOD 06/06/2025 7:56 AM [facility] LAB Platelets 307 130 - 400 K/mcL LAB HEMETOLOGY METHOD 06/06/2025 7:56 AM [facility] MPV 10.3 7.0 - 11.0 FL LAB HEMETOLOGY METHOD 06/06/2025 7:56 AM [facility] NRBC 0.0 <1.0 % LAB HEMETOLOGY METHOD 06/06/2025 7:56 AM [facility] NRBC Absolute 0.00 <0.10 K/mcL LAB HEMETOLOGY METHOD 06/06/2025 7:56 AM [facility] Neutrophils Relative 44.5 % LAB HEMETOLOGY METHOD 06/06/2025 7:56 AM [facility] Lymphocytes Relative 39.5 % LAB HEMETOLOGY METHOD 06/06/2025 7:56 AM [facility] Monocytes Relative 10.2 % LAB HEMETOLOGY METHOD 06/06/2025 7:56 AM [facility] Eosinophils Relative 4.8 % LAB HEMETOLOGY METHOD 06/06/2025 7:56 AM EDT [facility] Basophils Relative 0.7 % LAB HEMETOLOGY METHOD 06/06/2025 7:56 AM EDT [facility] Immature Granulocytes Relative 0.3 % LAB HEMETOLOGY METHOD 06/06/2025 7:56 AM EDT [facility] Neutrophils Absolute 3.18 1.50 - 7.00 K/mcL LAB HEMETOLOGY METHOD 06/06/2025 7:56 AM EDT [facility] Lymphocytes Absolute 2.82 1.00 - 5.00 K/mcL LAB HEMETOLOGY METHOD 06/06/2025 7:56 AM EDT [facility] Monocytes Absolute 0.73 0.20 - 1.00 K/mcL LAB HEMETOLOGY METHOD 06/06/2025 7:56 AM EDT [facility] Eosinophils Absolute 0.34 0.00 - 0.50 K/mcL LAB HEMETOLOGY METHOD 06/06/2025 7:56 AM EDT [facility] Basophils Absolute 0.05 0.00 - 0.20 K/mcL LAB HEMETOLOGY METHOD [facility]/06[facility]25 7[facility] Immature Granulocytes Absolute 0.02 0.00 - 0.03 K/mcL LAB HEMETOLOGY METHOD 06/06/2025 7:56 AM EDT [facility] Blood Venous blood specimen / Unknown 06/06/2025 6:45 AM EDT 06/06/2025 7:38 AM EDT us Christian Hicks MD LAB BLOOD ORDERABLES Final Resul t [facility] [address] [place] [address], documented in this encounter Visit Diagnoses Diagnosis 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
--- OUTSIDE RECORDS SUMMARY | 2025-08-02 10:24 | XMS_ITS | Encounter Summary ---
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, sequela (CMS/HCC) CBC AND DIFFERENTIAL Routine 12/10/2024 6:15 AM EDT 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3 27.0 - 32.0 pcg LAB HEMETOLOGY METHOD 12/10/2024 8:26 AM [facility] MCHC 33.2 32.0 - 37.0 g/dL LAB HEMETOLOGY METHOD 12/10/2024 8:26 AM [facility] RDW 12.6 11.0 - 15.0 % LAB HEMETOLOGY METHOD 12/10/2024 8:26 AM [facility] Platelets 301 130 - 400 K/mcL LAB HEMETOLOGY METHOD 12/10/2024 8:26 AM [facility] MPV 10.9 7.0 - 11.0 FL LAB HEMETOLOGY METHOD 12/10/2024 8:26 AM [facility] NRBC 0.0 <1.0 % LAB HEMETOLOGY METHOD 12/10/2024 8:26 AM [facility] NRBC Absolute 0.00 <0.10 K/mcL LAB HEMETOLOGY METHOD 12/10/2024 8:26 AM [facility] Neutrophils Relative 44.0 % LAB HEMETOLOGY METHOD 12/10/2024 8:26 AM [facility] Lymphocytes Relative 41.7 % LAB HEMETOLOGY METHOD 12/10/2024 8:26 AM [facility] Monocytes Relative 8.4 % LAB HEMETOLOGY METHOD 12/10/2024 8:26 AM [facility] Eosinophils Relative 5.0 % LAB HEMETOLOGY METHOD 12/10/2024 8:26 AM [facility] Basophils Relative 0.7 % LAB HEMETOLOGY METHOD 12/10/2024 8:26 AM [facility] Immature Granulocytes Relative 0.2 % LAB HEMETOLOGY METHOD 12/10/2024 8:26 AM [facility] Neutrophils Absolute 2.57 1.50 - 7.00 K/mcL LAB HEMETOLOGY METHOD 12/10/2024 8:26 AM [facility] Lymphocytes Absolute 2.43 1.00 - 5.00 K/mcL LAB HEMETOLOGY METHOD 12/10/2024 8:26 AM [facility] Monocytes Absolute 0.49 0.20 - 1.00 K/mcL LAB HEMETOLOGY METHOD 12/10/2024 8:26 AM [facility] Eosinophils Absolute 0.29 0.00 - 0.50 K/mcL LAB HEMETOLOGY METHOD 12/10/2024 8:26 AM [facility] Basophils Absolute 0.04 0.00 - 0.20 K/mcL LAB HEMETOLOGY METHOD 12/10/2024 8:26 AM [facility] Immature Granulocytes Absolute 0.01 0.00 - 0.03 K/mcL LAB HEMETOLOGY METHOD 12/10/2024 8:26 AM [facility] Blood Venous blood specimen / Unknown 12/10/2024 6:15 AM EDT 12/10/2024 8:00 AM EDT us Christian Hicks MD LAB BLOOD ORDERABLES Final Resul t [facility] [address] [place] [address], documented in this encounter Visit Diagnoses Diagnosis 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
--- OUTSIDE RECORDS SUMMARY | 2025-08-02 10:24 | XMS_ITS | Encounter Summary ---
Author Organization [facility] [facility] Address [address] [place] [address] Care Team Providers Care Fruit Shipper Name Role Phone Christian Hicks MD Primary Care Provider Encounter Details Date Type Department Care Team (Late st Contact Info) Description 11/08/2024 Lab Requisition [facility] Lab [address] [place] [address] Christian Hicks MD [address] [place] [address] [address] [place] Other fci (current) drug therapy Social History Tobacco Use [...] Diagnosis Comments CBC WITH AUTO DIFFERENTIAL Routine 11/08/2024 7:25 AM EST Other long term care pharmacist (current) drug therapy CBC AND DIFFERENTIAL Routine 11/08/2024 7:25 AM EST Other long term care pharmacist (current) drug therapy documented in this encounter Results * (ABNORMAL) CBC auto differential (11/08/2024 7:25 AM EST) WBC 6.5 4.8 - 10.8 K/[facility] LAB HEMETOLOGY METHOD 11/08/2024 8:23 AM EST [facility] RBC 4.90(H) 3.80 - 4.80 M/mcL LAB HEMETOLOGY METHOD 11/08/2024 8:23 AM EST [facility] Hemoglobin 14.1 11.5 - 16.0 g/dL LAB HEMETOLOGY METHOD 11/08/2024 8:23 AM [facility] LAB Hematocrit 41.6 35.0 - 47.0 % LAB HEMETOLOGY METHOD 11/08/2024 8:23 AM [facility] LAB MCV 85.4 79.0 - 98.0 FL LAB HEMETOLOGY METHOD 11/08/2024 8:23 AM [facility] LAB MCH 29.0 27.0 - 32.0 pcg LAB HEMETOLOGY METHOD 11/08/2024 8:23 AM [facility] LAB MCHC 33.9 32.0 - 37.0 g/dL LAB HEMETOLOGY METHOD 11/08/2024 8:23 AM [facility] LAB RDW 12.5 11.0 - 15.0 % LAB HEMETOLOGY METHOD 11/08/2024 8:23 AM [facility] LAB Platelets 351 130 - 400 K/mcL LAB HEMETOLOGY METHOD 11/08/2024 8:23 AM [facility] MPV 10.5 7.0 - 11.0 FL LAB HEMETOLOGY METHOD 11/08/2024 8:23 AM [facility] NRBC 0.0 <1.0 % LAB HEMETOLOGY METHOD 11/08/2024 8:23 AM [facility] NRBC Absolute 0.00 <0.10 K/mcL LAB HEMETOLOGY METHOD 11/08/2024 8:23 AM [facility] Neutrophils Relative 46.4 % LAB HEMETOLOGY METHOD 11/08/2024 8:23 AM [facility] Lymphocytes Relative 42.5 % LAB HEMETOLOGY METHOD 11/08/2024 8:23 AM [facility] Monocytes Relative 6.2 % LAB HEMETOLOGY METHOD 11/08/2024 8:23 AM [facility] Eosinophils Relative 3.9 % LAB HEMETOLOGY METHOD 11/08/2024 8:23 AM [facility] Basophils Relative 0.8 % LAB HEMETOLOGY METHOD 11/08/2024 8:23 AM [facility] Immature Granulocytes Relative 0.2 % LAB HEMETOLOGY METHOD 11/08/2024 8:23 AM [facility] Neutrophils Absolute 3.01 1.50 - 7.00 K/mcL LAB HEMETOLOGY METHOD 11/08/2024 8:23 AM [facility] Lymphocytes Absolute 2.75 1.00 - 5.00 K/mcL LAB HEMETOLOGY METHOD 11/08/2024 8:23 AM [facility] Monocytes Absolute 0.40 0.20 - 1.00 K/mcL LAB HEMETOLOGY METHOD 11/08/2024 8:23 AM [facility] Eosinophils Absolute 0.25 0.00 - 0.50 K/mcL LAB HEMETOLOGY METHOD 11/08/2024 8:23 AM [facility] Basophils Absolute 0.05 0.00 - 0.20 K/mcL LAB HEMETOLOGY METHOD 11/08/2024 8:23 AM [facility] Immature Granulocytes Absolute 0.01 0.00 - 0.03 K/mcL LAB HEMETOLOGY METHOD 11/08/2024 8:23 AM [facility] Blood Venous blood specimen / Unknown 11/08/2024 7:25 AM EST 11/08/2024 7:49 AM EST us Christian Hicks MD LAB BLOOD ORDERABLES Final Resul t [facility] [address] [place] [address], documented in this encounter Visit Diagnoses Diagnosis Other long term care pharmacist (current) drug therapy documented in this encounter Additional Health Concerns Infection Onset Date Last Indicated Resolved Time Respiratory Rule-Out 07/01/2025 07/01/20252 025 4:13 PM EDT documented as of this encounter Care Teams Fruit Shipper Relationship Specialty Start Date End Date Christian Hicks MD [address] [place] [address] [address] [place] Aguiar PCP - General Internal Medicine 11/08/24 documented as of this encounter
--- OUTSIDE RECORDS SUMMARY | 2025-08-02 10:24 | XMS_ITS | Encounter Summary ---
Author Organization [facility] Address [address] [place] [address] Care Team Providers Care Independent Living Advisor Name Role Phone Christian Hicks MD Primary Care Provider [phone] Encounter Details Date Type Department Care Team (Late st Contact Info) Description 05/28/2025 Lab Requisition [facility] [address] [place] [address] Christian Hicks MD [address] [place] [address] Dr [address] [place], [place] Urinary tract infection, site not specified Social [...] EDT Urinary tract infection, site not specified documented in this encounter Results * Culture urine (05/28/2025 5:30 AM EDT) Culture, 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 Suggest repeat specimen if clinically indicated. 05/29/2025 10:33 AM EDT [facility] Urine Urine specimen obtained by clean catch procedure / Unknown 05/28/2025 5:30 AM EDT 05/28/2025 8:41 AM EDT us Christian Hicks MD LAB MICROBIOLOGY - GENERAL ORDER [place] Final Result [facility] [address] [place] [address], [place] [phone] * (ABNORMAL) Urinalysis with reflex microscopic and culture (05/28/2025 5:30 AM EDT) Specific [facility] Urine 1.027 1.003 - 1.030 LAB URINALYSIS - AUTOMATED METHOD 05/28/2025 8:41 AM [facility] pH, Urine 5.0 5.0 - 8.0 pH LAB URINALYSIS - AUTOMATED METHOD 05/28/2025 8:41 AM [facility] Leukocytes, Urine Trace(A) Negative LAB URINALYSIS - AUTOMATED METHOD 05/28/2025 8:41 AM [facility] Nitrite, Urine Negative Negative LAB URINALYSIS - AUTOMATED METHOD 05/28/2025 8:41 AM [facility] Protein, Urine Negative <=Trace mg/dL LAB URINALYSIS - AUTOMATED METHOD 05/28/2025 8:41 AM [facility] Glucose, Urine >=1000(A) Negative mg/dL LAB URINALYSIS - AUTOMATED METHOD 05/28/2025 8:41 AM [facility] Ketones, Urine Negative Negative mg/dL LAB URINALYSIS - AUTOMATED METHOD 05/28/2025 8:41 AM [facility] Urobilinogen , Urine 0.2 0.2 - 1.0 mg/dL LAB URINALYSIS - AUTOMATED METHOD 05/28/2025 8:41 AM [facility] Bilirubin, Urine Negative Negative LAB URINALYSIS - AUTOMATED METHOD 05/28/2025 8:41 AM [facility] Blood, Urine Negative Negative LAB URINALYSIS - AUTOMATED METHOD 05/28/2025 8:41 AM EDT [facility] RBC, Urine 3.7 0 - 4 /HPF LAB URINALYSIS - AUTOMATED METHOD 05/28/2025 8:41 AM EDT [facility] WBC, Urine 16.2(H) 0 - 4 /HPF LAB URINALYSIS - AUTOMATED METHOD 05/28/2025 8:41 AM EDT [facility] Squamous Epithelial, Urine >100(H) 0 - 60 /LPF LAB URINALYSIS - AUTOMATED METHOD 05/28/2025 8:41 AM EDT [facility] Bacteria, Urine Negative Negative /HPF LAB URINALYSIS - AUTOMATED METHOD 05/28/2025 8:41 AM EDT [facility] Hyaline Casts, Urine 4.4(H) 0 - 3 /LPF LAB URINALYSIS - AUTOMATED METHOD 05/28/2025 8:41 AM EDT [facility] Urine Urine specimen obtained by clean catch procedure / Unknown 05/28/2025 5:30 AM EDT 05/28/2025 8:27 AM EDT us Christian Hicks MD LAB URINE ORDERABLES Final Resul t [facility] [address] [place] [address], documented in this encounter Visit Diagnoses Diagnosis Urinary tract infection, site not specified documented in this encounter Additional Health Concerns Infection Onset Date Last Indicated Resolved Time Respiratory Rule-Out 07/01/2025 07/01/2025 025 4:13 PM EDT documented as of this encounter Care Teams Independent Living Advisor Relationship Specialty Start Date End Date Christian Hicks MD [address] [place] [address] Dr [address] [place] [address] PCP - General Internal Medicine 11/08/24 documented as of this encounter
== END 2025-08-02 09:21 | disposition home or self-care (01) ==
LOC: HO.MAMMO 09:20
PROVIDERS: Visit Provider Hospitalist
DX: Z12.31 Encounter for screening mammogram for malignant neoplasm of breast (principal)
CPT/HCPCS: 77063; 77067